=== PATIENT | female | born 1945 | race Caucasian/White ===

== ENCOUNTER → 2017-08-20 16:13 | Outpatient (CLI) | payer MEDICARE, OTHER, SELFPAY ==
[2017-08-13 11:35] VITALS: TEMP 36
--- NOTE | 2017-08-20 16:16 | DI.MRI.S_ITS ---
PROCEDURE: MR HEAD/BRAIN WO CON INDICATIONS: Frequent falls, Headaches. TECHNIQUE: Non-contrast axial T1 spin echo, axial T2 fast spin echo, sagittal and axial FLAIR, coronal T2 fast spin echo, axial gradient echo, axial diffusion and ADC through the brain. COMPARISON: None. FINDINGS: Image quality: Excellent. CSF spaces: Ventricles appear symmetric in size and shape. Basal cisterns are patent. No extra-axial fluid collections. Brain: No intracranial bleeds or mass effects. There is cerebral volume loss for age. There are periventricular and deep white matter chronic small vessel ischemic changes. Brainstem appears normal. Diffusion-weighted images show no acute ischemic insults. No chronic ischemic insults. Normal intravascular flow voids are present. Skull and face: Calvarial bone marrow is normal in signal. Orbits are normal. Sinuses: Sinuses and mastoids are clear. IMPRESSION: Normal for age, no sign of trauma or intracranial hemorrhage. There is only mild microvascular atherosclerotic change in the deep white matter of each hemisphere. No sign of mass or hydrocephalus. Dictated by: Jamin Harmon M.D. on 08/20/2017 at 17:09 Approved by: Jamin Harmon M.D. on 08/20/2017 at 17:10
== END ==
PROVIDERS: Family Provider Family Medicine; PCP Family Medicine; Visit Provider Family Medicine
DX: R51 Headache (principal); R29.6 Repeated falls
CPT/HCPCS: 70551

== ENCOUNTER → 2017-08-29 12:44 | Outpatient (CLI) | payer MEDICARE, OTHER, SELFPAY ==
--- NOTE | 2017-08-29 12:47 | DI.MRI.S_ITS ---
PROCEDURE: MR LUMBAR SPINE WO CON INDICATIONS: right lower extremity weakness TECHNIQUE: Noncontrast sagittal T1 spin echo and T2 fast echo, sagittal STIR, axial T1 and T2 fast spin echo through the lumbar spine. In cases with scoliosis, additional coronal T2 fast spin echo may be performed. COMPARISON: [facility], , L-SPINE WITHOUT CONTRAST, 11/18/2006, 12:48. FINDINGS: Image quality: Excellent. Alignment and Curvature: There is grade 1 retrolisthesis of L2 on L3 and L3 on L4. Bone Marrow: Degenerative endplate signal changes in lumbar spine noted. No acute vertebral body compression fractures. Spinal Cord: Conus medullaris terminates at the L1-L2 level. Visualized cord demonstrates normal signal and size. Paraspinous Soft Tissues: No paravertebral masses. L1-L2: Normal appearance. L2-L3: Severe loss of disc height and disc desiccation. There is diffuse posterior disc bulge and disc osteophyte complex. Moderate bilateral facet arthropathy and hypertrophy are ligamentum flavum. The central canal is severely narrowed. Severe left and moderate right foraminal stenosis. Compared to the last exam on 11/18/2006, there is significant worsening of central canal from a stenosis. L3-L4: Moderate to severe loss of disc height and disc desiccation. There is diffuse posterior disc bulge and disc osteophyte complex. Moderate bilateral facet arthropathy and severe hypertrophy are ligamentum flavum. The central canal is severely narrowed. Severe bilateral foraminal stenosis. Compared to the last exam on 11/18/2006, there is significant worsening of central canal from a stenosis. L4-L5: Mild to moderate loss of disc height and disc desiccation. There is diffuse posterior disc bulge and disc osteophyte complex. Severe right and moderate left facet arthropathy and moderate hypertrophy are ligamentum flavum. The central canal is [id number] narrowed. Severe right and moderate to severe left foraminal stenosis. Compared to the last exam on 11/18/2006, there is significant worsening of central canal from a stenosis. L5-S1: Moderate loss of disc height and disc desiccation. There is diffuse posterior disc bulge and disc osteophyte complex. Moderate facet arthropathy and moderate hypertrophy. The central canal is mildly narrowed. Severe bilateral foraminal stenosis. Compared to the last exam on 11/18/2006, there is significant worsening of central canal from a stenosis. IMPRESSION: 1. Multilevel degenerative disc disease and facet arthropathy as described. 2. Multilevel severe central canal stenosis as described. 3. Multilevel severe foraminal stenosis as described. Dictated by: Valeria Napier M.D. on 08/29/2017 at 17:23 Transcribed by: PADMINI on 08/29/2017 at 17:30 Approved by: Valeria Napier M.D. on 08/30/2017 at 9:45
== END ==
PROVIDERS: Family Provider Family Medicine; PCP Family Medicine; Visit Provider Family Medicine
DX: M51.36 Other intervertebral disc degeneration, lumbar region (principal); M47.816 Spondylosis without myelopathy or radiculopathy, lumbar region; M48.061 Spinal stenosis, lumbar region without neurogenic claudication; M99.73 Connective tissue and disc stenosis of intervertebral foramina of lumbar region
CPT/HCPCS: 72148

== ENCOUNTER → 2017-10-15 09:55 | Outpatient (CLI) | payer MEDICARE, OTHER, SELFPAY ==
--- NOTE | 2017-10-15 09:58 | DI.RAD.S_ITS ---
PROCEDURE: XR LUMBAR SPINE MIN 4V INDICATIONS: Lumbar Stenosis with Radiculopathy TECHNIQUE: 6 views of the lumbar spine were acquired. COMPARISON: [facility], , L-SPINE 2-3 VIEWS, 10/14/2006, 11:38. FINDINGS: Bones: 5 nonrib-bearing vertebrae are present. There is moderate rotatory dextroscoliosis. There is grade 1 retrolisthesis of L2 on L3 and L3 on L4. No vertebral body compression fractures. No suspicious bony lesions. Multilevel degenerative disc disease is present, severe at L2-L3, L3-L4 and L5-S1. There is severe facet arthropathy at L3-L4, L4-L5 and L5-S1. 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 Soft tissues: Overlying bowel gas pattern is normal. There are aortic calcifications consistent with atherosclerosis. Oblique images: No pars defects. IMPRESSION: 1. Severe degenerative disc disease at L2-L3, L3-L4 and L5-S1. 2. Multilevel facet arthropathy, severe at L3-L4, L4-L5 and L5-S1. 3. Baastrup's disease. 4. No pars defects. Dictated by: Valeria Napier M.D. on 10/15/2017 at 14:12 Approved by: Valeria Napier M.D. on 10/15/2017 at 14:18
== END ==
PROVIDERS: Family Provider Family Medicine; PCP Family Medicine; Visit Provider Physical Medicine & Rehabilitation
DX: M48.061 Spinal stenosis, lumbar region without neurogenic claudication (principal); M54.16 Radiculopathy, lumbar region; M51.36 Other intervertebral disc degeneration, lumbar region; M47.26 Other spondylosis with radiculopathy, lumbar region; M47.27 Other spondylosis with radiculopathy, lumbosacral region; M48.26 Kissing spine, lumbar region
CPT/HCPCS: 72110

== ENCOUNTER 2017-10-16 08:14 | Outpatient (CLI) | payer MEDICARE, OTHER, SELFPAY ==
[2017-10-16] VITALS (8 sets, daily range): BP systolic 140–167; BP diastolic 62–82; PULSE 55–67; RESP 16–19; TEMP 36.2; O2SAT 99–100
--- NOTE | 2017-10-16 08:16 | DI.RAD.S_ITS ---
PROCEDURE: PAIN L INTERLAMINAR/CAUDAL INJ INDICATIONS: LUMBOSACRAL RADICULOPATHY FINDINGS: Fluoroscopic spot filming was performed to verify placement of spinal needles at the midline L3-L4 epidural level, as labeled on the films. Appropriate location(s) of the needle tip(s) was confirmed by injection of iodinated contrast. IMPRESSION: Successful epidural needle tip localization through the right paramedian interlaminar notch L3-L4. Dictated by: Jamin Harmon M.D. on 10/16/2017 at 12:17 Approved by: Jamin Harmon M.D. on 10/16/2017 at 12:18
[2017-10-16] MEDS: MIDAZOLAM 5 MG/5 ML VIAL IV (09:09)
[2017-10-16] MEDS: BUPIVACAINE 0.25% (PF) 30 ML VIAL INJ (09:09)
[2017-10-16] MEDS: methylPREDNISolone acetate 80 MG/ML VIAL INJ (09:09)
[2017-10-16] MEDS: IOPAMIDOL 15 ML VIAL 3 ML INJ (09:09)
[2017-10-16] MEDS: DEXAMETHASONE 10 MG/ML VIAL 20 MG INJ (09:09)
--- NOTE | 2017-10-16 09:34 | P.PCN_ITS ---
Procedures Date/Time Date of procedure: 10/16/17 Time of procedure: 09:32 General Procedure description: POST OP DIAGNOSIS 1. HNP WITH RADICULAR FEATURES, 2. MULTILEVEL CENTRAL STENOSIS, PROCEDURES 1. FLUORSCOPICALLY GUIDED CONTRAST CONTROLLED INTERLAMINAR EPIDURAL STEROID INJECTION - L3/4 PHYSICIAN: Wilner Tee, INDICATIONS Heather is referred by Dr.Les Murray for treatment of Bilateral Foraminal Stenosis L>R LE symptoms. FINDINGS Multilevel Central Spinal Stenosis with Nerve Root Compression DESCRIPTION OF PROCEDURE Fluoroscopically guided, contrast-controlled L3/4 translaminar epidural steroid injection. Following denial of allergy and review of potential side effects and complications, including, but not necessarily limited to, infection, allergic reaction, local tissue breakdown, temporary as well as permanent nerve injury, paralysis, stroke and possible , the patient indicated that the patient understood and agreed to proceed. An informed consent document was signed by the patient, witnessed by a nurse, and placed in the patient's chart. Additionally, other treatment options including modalities, medications, and physical therapy were reviewed with the patient. Per the patient request, IV conscious sedation was administered via 3mg of Versed to patient comfort. The patient's vital signs were monitored throughout the procedure by both the nurse and the physician without significant fluctuation. The patient remained conversant throughout the procedure. In the prone position, following sterile prep and drape of the lumbar region, the L3/4 translaminar space was identified fluoroscopically. The skin was anesthetized via a 25-gauge, 1.5-inch needle with 1% lidocaine solution. At this point, a 22-gauge short bevel spinal needle was atraumatically introduced and advanced under fluoroscopic guidance into the region of the L3/4 translaminar space. Depth was confirmed on lateral view. Radiological data, including multiple fluoroscopic views of the lumbar spine, reveal a spinal needle at the L3/4 translaminar space. Lateral views then show placement of the needle in the epidural space. Subsequent views show contrast material flowing superiorly and inferiorly in the epidural space. No vascular or intrathecal uptake is observed. At this point, using loss of resistance technique with saline and air, the epidural space was entered. This was confirmed following negative aspiration with injection of approximately 1.5 cc of Isovue 200, showing excellent epidural flow without vascular or intrathecal uptake. At this point, 1 cc of 1 % lidocaine solution combined with 3 cc or 20 mg of dexamethasone and 80mg Depo medrol was injected without incident. The patient was then transferred to the recovery area where they were observed for an appropriate period of time after the injection. The patient reported a VAS score of 6 prior to the procedure and a post-procedure VAS of 0. Total Fluoroscopy Time: 11.8 seconds Total Conscious Sedation Time: 24min POST OP INSTRUCTIONS The patient was provided a Pain Log to continue to record their response to the target-specific procedure prior to follow-up visit with their referring physician. Additionally, specific post-injection care instructions and a contact number to our office were provided if concerns arise regarding possible complications associated with the procedure are suspected. Wilner Tee DO
--- NOTE | 2017-11-21 13:02 | PC.NURSE ---
incorrectly documented in pt's chart in physical therapy documention on 10/16/17. Documentation transferred to correct chart RAD.
== END 2017-10-16 09:58 | disposition home or self-care (01) ==
LOC: RAD 08:16
PROVIDERS: PCP Family Medicine; Visit Provider Physical Medicine & Rehabilitation
DX: M48.061 Spinal stenosis, lumbar region without neurogenic claudication (principal); M54.17 Radiculopathy, lumbosacral region; M41.20 Other idiopathic scoliosis, site unspecified; M99.83 Other biomechanical lesions of lumbar region
CPT/HCPCS: 62323; 99152; J1040; J1100; J2250

== ENCOUNTER → 2017-11-13 12:09 | Outpatient (CLI) | payer MEDICARE, OTHER, SELFPAY ==
[2017-11-13] VITALS (7 sets, daily range): BP systolic 134–169; BP diastolic 57–130; PULSE 52–62; RESP 16–23; TEMP 36.1; O2SAT 98–100
--- NOTE | 2017-11-13 12:12 | DI.RAD.S_ITS ---
PROCEDURE: PAIN L/SI FACET INJ/BLK 1STL INDICATIONS: Lumbosacral spondylosis FINDINGS: Fluoroscopic spot filming was performed to verify placement of spinal needles at the left L4-5 in the left L5-S1 level(s), as labeled on the films. Appropriate location(s) of the needle tip(s) was confirmed by injection of iodinated contrast. IMPRESSION: Successful left ill for 5 and L5-S1 localization for anticipated facet joint injection. Dictated by: Jamin Harmon M.D. on 11/13/2017 at 16:16 Approved by: Jamin Harmon M.D. on 11/13/2017 at 16:16
--- NOTE | 2017-11-13 13:23 | P.PCN_ITS ---
Procedures Date/Time Date of procedure: 11/13/17 Time of procedure: 13:19 General Procedure description: PREOP DIAGNOSIS 1. FACET ARTHROPATHY, 2. AXIAL LBP, 3. MULTILEVEL DDD, POST OP DIAGNOSIS 1. FACET ARTHROPATHY, 2. AXIAL LBP, 3. MULTILEVEL DDD, PROCEDURES 1. FLUORSCOPICALLY GUIDED CONTRAST CONTROLLED FACET JOINT INJECTIONS LEFT L4/5 , L5/S1 SURGEON: Wilner Tee DO INDICATIONS is referred by for treatment of Axial LBP FINDINGS Multilevel Facet Arthropathy with Clinically significant axial LBP DESCRIPTION OF PROCEDURE Fluoroscopically guided, contrast-controlled left L4/5, L5/S1 facet joint injections. Following denial of allergy and review of potential side effects and complications, including, but not necessarily limited to, infection, allergic reaction, local tissue breakdown, stroke, temporary or permanent nerve injury, paralysis, and possible , the patient indicated that the patient understood and agreed to proceed. An informed consent document was signed by the patient, witnessed by a nurse, and placed in the patient's chart. Additionally, other treatment options including medications, modalities, and physical therapy were reviewed with the patient. After review of previous anaesthesic history and IV conscious sedation the patient was deemed safe to proceed with todays procedure with IV conscious sedation as ASA class II designation. Safety time-out was performed to confirm patient ID, procedure to be performed and site of procedure. IV sedation was accomplished with a combination of 2mg was administered by the RN after DO order , titrated to patient comfort during the course of the procedure while the patient remained responsive to all verbal commands In the prone position, following sterile prep and drape of the lumbar region, the posterior aspect of the left L4/5, L5/S1 facet joints were identified fluoroscopically. The skin was anesthetized via a 25-gauge 1.5-inch needle with 1% lidocaine solution into the corresponding facet joints. At this point, a 22-gauge 3.5-inch spinal needle was atraumatically introduced and advanced under fluoroscopic guidance into the corresponding facet joints. Following negative aspiration, injections of approximately 0.2-cc of Isovue 200 confirmed interarticular placement without vascular uptake. Radiological data, including multiple fluoroscopic views of the lumbosacral spine, reveal a spinal needle at the left L4/5, L5/S1 facet joints. Subsequent views show flow of contrast material both superiorly and inferiorly within the joint space without vascular or intrathecal uptake. At this point, a total of 0.5 cc including a mixture of 0.25cc Marcaine and 0.25cc betamethasone was injected without complication into each of the corresponding facet joints. The procedure tolerated the procedure well without signs or symptoms of complications prior to transfer to the recovery area continued monitoring without incident. The patient was then transferred to the recovery area where they were observed for an appropriate period of time after the injection. The patient reported a VAS score of 7 prior to the procedure and a post-procedure VAS of 0. Total Fluoroscopy Time: 12.7 seconds Total Conscious Sedation Time: 24min POST OP INSTRUCTIONS The patient was provided a Pain Log to continue to record their response to the target-specific procedure prior to follow-up visit with their referring physician. Additionally, specific post-injection care instructions and a contact number to our office were provided if concerns arise regarding possible complications associated with the procedure are suspected. Wilner Tee DO Complications: none
[2017-11-13] MEDS: BETAMETHASONE 30 MG/5 ML MDV 12 MG INJ (13:34)
[2017-11-13] MEDS: MIDAZOLAM 5 MG/5 ML VIAL IV (13:34)
[2017-11-13] MEDS: BUPIVACAINE 0.25% (PF) VIAL 2 ML INJ (13:34)
[2017-11-13] MEDS: IOPAMIDOL 15 ML VIAL 3 ML INJ (13:34)
== END ==
PROVIDERS: PCP Family Medicine; Visit Provider Physical Medicine & Rehabilitation
DX: M47.816 Spondylosis without myelopathy or radiculopathy, lumbar region (principal); M47.817 Spondylosis without myelopathy or radiculopathy, lumbosacral region; M51.36 Other intervertebral disc degeneration, lumbar region; M51.37 Other intervertebral disc degeneration, lumbosacral region; M54.5 Low back pain; M41.20 Other idiopathic scoliosis, site unspecified
CPT/HCPCS: 64493; 64494; 99152; J0702; J2250

== ENCOUNTER 2017-12-03 08:15 | Outpatient (RCR) | payer MEDICARE, OTHER, SELFPAY ==
[2017-10-16 09:09] VITALS: BP 166/74; PULSE 60; RESP 18; O2SAT 100
[2017-10-16 09:15] VITALS: BP 166/68; PULSE 56; RESP 19; O2SAT 100
[2017-10-16 09:21] VITALS: BP 166/62; PULSE 56; RESP 19; O2SAT 100
[2017-10-16 09:26] VITALS: BP 167/63; PULSE 58; RESP 17; O2SAT 99
--- NOTE | 2017-10-25 12:00 | PT.OTN ---
Current Diagnoses Other idiopathic scoliosis, site unspecified (11/01/17) Radiculopathy, lumbosacral region (11/01/17) Other biomechanical lesions of lumbar region (11/01/17) Physical Therapy Treatment Note PT-OP-A Visit Information Start: 10/30/17 10:02 Freq: Status: Active Protocol: Document 11/01/17 10:30 AMB (Rec: 11/01/17 10:39 AMB [id number]) Out-Patient Physical Therapy Visit Information Visit Information Visit Type Treatment Note Visit Start Time 10:30 Visit Stop Time 11:15 Total Visit Minutes 45 Visit Number 2 Evaluation Information Evaluation Date 10/30/17 PT-OP-B Current Condition Start: 10/30/17 10:02 Freq: Status: Active Protocol: Document 10/30/17 11:15 AMB (Rec: 10/30/17 11:31 AMB [id number]) Current Condition History of Current Condition Onset Date chronic Current Complaints L>R low back pain that can go into the hips, never past the knee History of Current Condition R sided low back pain is much improved since injection by Dr Francie Tee 2 weeks ago. Standing statically is still a painful. 5-8/10 pain before shot. 1-3/10 pain now, but a 1 mile walk did increase pain. 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 Fell 3x in July, fell down 2 stairs, listing to the R, falling to the right. No falls since July. Denies specific dizziness/ lightheadedness/spinning but feels off balance. Does report left ear pressure which is worst in the morning. 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 Lumbar and brain MRI. 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 Prior Functional Status Baseline Function- ADL's Independent Baseline Function- Mobility Independent Current Functional Impairments (Reported) Functional Limitations- ADL's Difficulty with yardwork, difficulty walking more than 15 minutes at a time, difficulty standing. PT-OP-C Subjective Start: 10/30/17 10:02 Freq: Status: Active Protocol: Document 11/01/17 10:30 AMB (Rec: 11/01/17 10:39 AMB [id number]) OP-PT Subjective Patient Comments Patient Comments L sided pain is pain is increasing 3/10 pain. PT-OP-D Balance Start: 10/30/17 10:02 Freq: Status: Active Protocol: Document 10/30/17 11:15 AMB (Rec: 10/31/17 07:58 AMB [email or web address]) Balance Tests Romberg Romberg positive Single Limb Standing Single Limb- Right unable Single Limb- Left unable Semi-Tandem Standing Semi-Tandem Standing Balance with head turns, LOB PT-OP-E Functional Tests Start: 10/30/17 13:02 Freq: Status: Active Protocol: Document 10/30/17 11:15 AMB (Rec: 10/30/17 13:06 AMB [email or web address]) Functional Tests Dynamic Gait Index (DGI) Score 11 DGI Impairment Rating 40 to <60% Impaired (Score 10- 14) PT-OP-F Manual Assessment Start: 10/30/17 10:02 Freq: Status: Active Protocol: Document 10/30/17 11:15 AMB (Rec: 10/30/17 16:18 AMB [email or web address]) Manual Assessments Joint Mobility Assessment Joint Mobility Assessment Stiff with PAs throughout lumbosacral spine, tenderness at paraspinals on the left. PT-OP-G Mobility & Gait Start: 10/30/17 10:02 Freq: Status: Active Protocol: Document 10/30/17 11:15 AMB (Rec: 10/30/17 16:18 AMB [email or web address]) OP Gait Assessment Comments Gait Comments Pt ambulates without assistive device, without trunk rotation. Decreased hip flexion leads to circumduction to raise leg over hurdles. Increased feeling of instability with walking faster. PT-OP-J Posture/Palpation/Skin Start: 10/30/17 10:02 Freq: Status: Active Protocol: Document 10/30/17 11:15 AMB (Rec: 10/30/17 16:18 AMB [email or web address]) Posture Evaluation Comments Posture Comments Moderate- severe thoracic kyphosis with excessive lumbar lordosis. PT-OP-K Range of Motion Start: 10/30/17 10:02 Freq: Status: Active Protocol: Document 10/30/17 11:15 AMB (Rec: 10/30/17 13:29 AMB [email or web address]) Lumbar Spine Range of Motion Lumbar Spine Active Degrees Flexion 40 Extension 20 Lateral Flexion Left 10 Lateral Flexion Right 10 PT-OP-M Strength Start: 10/30/17 10:02 Freq: Status: Active Protocol: Document 10/30/17 11:15 AMB (Rec: 10/30/17 13:29 AMB [email or web address]) Hip Strength Hip Manual Muscle Testing Right Flexion (L2) 3 Fair Extension (S1) 4- Good- Abduction 4- Good- Left Flexion (L2) 3- Fair- Extension (S1) 4- Good- Abduction 4- Good- Knee Strength Knee Manual Muscle Testing Right Flexion (S2) 4 Good Extension (L3) 4- Good- Left Flexion (S2) 4 Good Extension (L3) 4- Good- PT-OP-Q Treatments Start: 10/30/17 10:02 Freq: Status: Active Protocol: Document 11/01/17 10:30 AMB (Rec: 11/04/17 07:04 AMB [email or web address]) Cardio Equipment Recumbent Elliptical (BiodDekko) Duration (Minutes) 6 Resistance 4 Therapeutic Exercises Supine Exercises 2 Supine Exercise Name SLR Reps/Minutes 10 1 Supine Exercise Name TrA stab Comments added march Sidelying Exercises 1 Sidelying Exercise Name hip abd SLR Reps/Minutes 10 bilat Standing Exercises 1 Standing Exercise Name squats Reps/Minutes 2x10 Comments vc form Neuro Re-Education Treatment Balance Activities 2 Details Ambulation with head turns Comments horizontal and vertical (veers to R with horizontal). 1 Details Stride stance head turns Comments in corner PT-OP-T Assessment and Plan Start: 10/30/17 10:02 Freq: Status: Active Protocol: Document 11/01/17 10:30 AMB (Rec: 11/01/17 13:02 AMB [email or web address]) Physical Therapy Assessment Assessment Summary Assessment Pt fatigues quickly in her hips. L sided back pain more of an issue than R. Veering R with head turns continues. Physical Therapy Plan Next Visit Focus/Plan Next Note Type Treatment Note Next Visit Plan Progress core stability, gait with head turns, try VOR training
--- NOTE | 2017-10-30 12:00 | PT.OPPOC ---
Current Diagnoses Other idiopathic scoliosis, site unspecified (10/30/17) Radiculopathy, lumbosacral region (10/30/17) Other biomechanical lesions of lumbar region (10/30/17) Other abnormalities of gait and mobility (10/30/17) History of falling (10/30/17) Provider Visit Care Team Role Provider Type Gume Murray MD Primary Care Provider Physician Specialty: Family Practice Address: [address] [place] [address], [id number] Email: [email or web address] Wilner Tee DO Attending Provider Physician Specialty: Physiatry Pain Management Address: [address] [place] [address], [id number] Email: Plan Of Care PT-OP-T Assessment and Plan Start: 10/30/17 10:02 Freq: Status: Active Protocol: Document 10/30/17 11:15 AMB (Rec: 10/31/17 07:30 AMB [email or web address]) Physical Therapy Assessment Rehab Potential Rehabilitation Potential Good Evaluation Complexity Number of Personal Factors/Comorbidities 1-2 Number of Body Systems Impaired 4 or More Clinical Presentation at Evaluation Evolving Impairments Impairments Gait Pain Posture Strength Vestibular Goals Four Impairment Strength Short Term Goal (STG) The patient will improve her core and hip strength so that she can perform a straight leg raise with good strength without an increase in back pain. STG Duration 4 weeks Tools And Parts Attendant Goal (LTG) The patient will be able to step up on a curb without circumducting her hip. LTG Duration 8 weeks Three Impairment Balance Short Term Goal (STG) The patient will stand with modified tandem stance with head turns without loss of balance. STG Duration 4 weeks Two Impairment Activity Tolerance Short Term Goal (STG) The patient will walk for 1 mile (with breaks) without an increase in low back pain. STG Duration 4 weeks Jail Goal (LTG) The patient will perform a partial squat to unload her environmental lead without excessive flexion of the spine without an increase in pain. LTG Duration 8 weeks One Impairment Gait Tools And Parts Attendant Goal (LTG) The patient will improve her dynamic gait index to 18/24 to show decreased risk of falls. LTG Duration 8 weeks Assessment Summary Assessment The patient presents to physical therapy with history of chronic back pain, scoliosis, central canal stenosis. She recently had an injection on the right that has dramatically improved her pain, but she continues to get pain with walking, and avoids yard work. She also has a history of falls, and continues to veer to the right with gait, worse with eyes closed and head turn activities. 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 She will benefit from physical therapy for instruction in body mechanics, improved core and hip strength, pain management techniques, and further instruction in gait and balance. Physical Therapy Plan Frequency and Duration Frequency of Treatment 2x/Week Duration of Treatment 8 weeks Plan of Care Start Date 10/30/17 Plan of Care End Date 12/25/17 Therapeutic Interventions Therapeutic Interventions Aquatic Therapy Balance Training Gait Training Home Exercise Program Manual Therapy Neuromuscular Re-education Self-Care/Home Management Therapeutic Activities Therapeutic Exercises Vestibular Rehabilitation Modalities Cold Pack/Ice Massage Electric Stimulation Hot Packs Traction- Mechanical Other Therapeutic Interventions Jac treatment per physician order Next Visit Focus/Plan Next Note Type Treatment Note Plan of Care Dates Plan of Care Start Date 10/30/17 Plan of Care End Date 12/25/17 Please Sign and Return: I have reviewed this Plan of Care and certify that the skilled therapy services above are required to meet the patient?s needs. Physician Signature Date Printed Name and Credentials Clinical Instructor Signature Printed Name and Credentials
--- NOTE | 2017-10-31 08:04 | PT.OIE ---
Current Diagnoses Other idiopathic scoliosis, site unspecified (10/30/17) Radiculopathy, lumbosacral region (10/30/17) Other biomechanical lesions of lumbar region (10/30/17) Other abnormalities of gait and mobility (10/30/17) History of falling (10/30/17) Past Surgical History (Last Reviewed 09/23/17 @ 11:50 by Wilner Tee DO) History of cataract removal with insertion of prosthetic lens Status post appendectomy Status post dilation and curettage Status post tonsillectomy and adenoidectomy Status post tubal ligation Provider Visit Care Team Role Provider Type Gume Murray MD Primary Care Provider Physician Specialty: Family Practice Address: [address] [place] [address], [id number] Email: [email or web address] Wilner Tee DO Attending Provider Physician Specialty: Physiatry Pain Management Address: [address] [place] [id number] Email: Physical Therapy Initial Evaluation PT-OP-A Visit Information Start: 10/30/17 10:02 Freq: Status: Active Protocol: Document 10/30/17 11:15 AMB (Rec: 10/30/17 13:08 AMB [email or web address]) Out-Patient Physical Therapy Visit Information Visit Information Visit Type Initial Evaluation Visit Start Time 11:15 Visit Stop Time 12:15 Total Visit Minutes 60 Visit Number 1 Evaluation Information Evaluation Date 10/30/17 PT-OP-B Current Condition Start: 10/30/17 10:02 Freq: Status: Active Protocol: Document 10/30/17 11:15 AMB (Rec: 10/30/17 11:31 AMB [id number]) Current Condition History of Current Condition Onset Date chronic Current Complaints L>R low back pain that can go into the hips, never past the knee History of Current Condition R sided low back pain is much improved since injection by Dr Francie Tee 2 weeks ago. Standing statically is still a painful. 5-8/10 pain before shot. 1-3/10 pain now, but a 1 mile walk did increase pain. 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 Fell 3x in July, fell down 2 stairs, listing to the R, falling to the right. No falls since July. Denies specific dizziness/ lightheadedness/spinning but feels off balance. Does report left ear pressure which is worst in the morning. 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 Lumbar and brain MRI. 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 Prior Functional Status Baseline Function- ADL's Independent Baseline Function- Mobility Independent Current Functional Impairments (Reported) Functional Limitations- ADL's Difficulty with yardwork, difficulty walking more than 15 minutes at a time, difficulty standing. PT-OP-C Subjective Start: 10/30/17 10:02 Freq: Status: Active Protocol: Document 10/30/17 11:15 AMB (Rec: 10/30/17 13:02 AMB [email or web address]) OP-PT Subjective Patient Comments Patient Comments The patient reports her pain levels has been improving since her injection 2 weeks ago. Walking and yardwork continue to increase her pain. Patient Questionnaires Oswestry Low Back Index Oswestry Score 12 Oswestry Impairment 1 to 19% Impaired (Score 1-19) OP-PT Pain Assessment Location Back Pain Location Details low back L>R Intensity 2 Scale Used Numeric (1 - 10) PT-OP-D Balance Start: 10/30/17 10:02 Freq: Status: Active Protocol: Document 10/30/17 11:15 AMB (Rec: 10/31/17 07:58 AMB [email or web address]) Balance Tests Romberg Romberg positive Single Limb Standing Single Limb- Right unable Single Limb- Left unable Semi-Tandem Standing Semi-Tandem Standing Balance with head turns, LOB PT-OP-E Functional Tests Start: 10/30/17 13:02 Freq: Status: Active Protocol: Document 10/30/17 11:15 AMB (Rec: 10/30/17 13:06 AMB [email or web address]) Functional Tests Dynamic Gait Index (DGI) Score 11 DGI Impairment Rating 40 to <60% Impaired (Score 10- 14) PT-OP-F Manual Assessment Start: 10/30/17 10:02 Freq: Status: Active Protocol: Document 10/30/17 11:15 AMB (Rec: 10/30/17 16:18 AMB [email or web address]) Manual Assessments Joint Mobility Assessment Joint Mobility Assessment Stiff with PAs throughout lumbosacral spine, tenderness at paraspinals on the left. PT-OP-G Mobility & Gait Start: 10/30/17 10:02 Freq: Status: Active Protocol: Document 10/30/17 11:15 AMB (Rec: 10/30/17 16:18 AMB [email or web address]) OP Gait Assessment Comments Gait Comments Pt ambulates without assistive device, without trunk rotation. Decreased hip flexion leads to circumduction to raise leg over hurdles. Increased feeling of instability with walking faster. PT-OP-J Posture/Palpation/Skin Start: 10/30/17 10:02 Freq: Status: Active Protocol: Document 10/30/17 11:15 AMB (Rec: 10/30/17 16:18 AMB [email or web address]) Posture Evaluation Comments Posture Comments Moderate- severe thoracic kyphosis with excessive lumbar lordosis. PT-OP-K Range of Motion Start: 10/30/17 10:02 Freq: Status: Active Protocol: Document 10/30/17 11:15 AMB (Rec: 10/30/17 13:29 AMB [email or web address]) Lumbar Spine Range of Motion Lumbar Spine Active Degrees Flexion 40 Extension 20 Lateral Flexion Left 10 Lateral Flexion Right 10 PT-OP-M Strength Start: 10/30/17 10:02 Freq: Status: Active Protocol: Document 10/30/17 11:15 AMB (Rec: 10/30/17 13:29 AMB [email or web address]) Hip Strength Hip Manual Muscle Testing Right Flexion (L2) 3 Fair Extension (S1) 4- Good- Abduction 4- Good- Left Flexion (L2) 3- Fair- Extension (S1) 4- Good- Abduction 4- Good- Knee Strength Knee Manual Muscle Testing Right Flexion (S2) 4 Good Extension (L3) 4- Good- Left Flexion (S2) 4 Good Extension (L3) 4- Good- PT-OP-Q Treatments Start: 10/30/17 10:02 Freq: Status: Active Protocol: Document 10/30/17 11:15 AMB (Rec: 10/30/17 16:18 AMB [email or web address]) Therapeutic Exercises Supine Exercises 1 Supine Exercise Name TrA stab Comments added june Neuro Re-Education Treatment Balance Activities 1 Details Stride stance head turns Comments in corner PT-OP-T Assessment and Plan Start: 10/30/17 10:02 Freq: Status: Active Protocol: Document 10/30/17 11:15 AMB (Rec: 10/31/17 07:30 AMB [email or web address]) Physical Therapy Assessment Rehab Potential Rehabilitation Potential Good Evaluation Complexity Number of Personal Factors/Comorbidities 1-2 Number of Body Systems Impaired 4 or More Clinical Presentation at Evaluation Evolving Impairments Impairments Gait Pain Posture Strength Vestibular Goals Four Impairment Strength Short Term Goal (STG) The patient will improve her core and hip strength so that she can perform a straight leg raise with good strength without an increase in back pain. STG Duration 4 weeks Insurance Investigator Goal (LTG) The patient will be able to step up on a curb without circumducting her hip. LTG Duration 8 weeks Three Impairment Balance Short Term Goal (STG) The patient will stand with modified tandem stance with head turns without loss of balance. STG Duration 4 weeks Two Impairment Activity Tolerance Short Term Goal (STG) The patient will walk for 1 mile (with breaks) without an increase in low back pain. 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 LTG Duration 8 weeks One Impairment Gait Insurance Investigator Goal (LTG) The patient will improve her dynamic gait index to 18/24 to show decreased risk of falls. LTG Duration 8 weeks Assessment Summary Assessment The patient presents to physical therapy with history of chronic back pain, scoliosis, central canal stenosis. She recently had an injection on the right that has dramatically improved her pain, but she continues to get pain with walking, and avoids yard work. She also has a history of falls, and continues to veer to the right with gait, worse with eyes closed and head turn activities. 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 She will benefit from physical therapy for instruction in body mechanics, improved core and hip strength, pain management techniques, and further instruction in gait and balance. Physical Therapy Plan Frequency and Duration Frequency of Treatment 2x/Week Duration of Treatment 8 weeks Plan of Care Start Date 10/30/17 Plan of Care End Date 12/25/17 Therapeutic Interventions Therapeutic Interventions Aquatic Therapy Balance Training Gait Training Home Exercise Program Manual Therapy Neuromuscular Re-education Self-Care/Home Management Therapeutic Activities Therapeutic Exercises Vestibular Rehabilitation Modalities Cold Pack/Ice Massage Electric Stimulation Hot Packs Traction- Mechanical Other Therapeutic Interventions Jac treatment per physician order Next Visit Focus/Plan Next Note Type Treatment Note
--- NOTE | 2017-11-04 12:46 | PT.OTN ---
Current Diagnoses Other idiopathic scoliosis, site unspecified (11/04/17) Radiculopathy, lumbosacral region (11/04/17) Other biomechanical lesions of lumbar region (11/04/17) Physical Therapy Treatment Note PT-OP-A Visit Information Start: 10/30/17 10:02 Freq: Status: Active Protocol: Document 11/04/17 09:45 AMB (Rec: 11/04/17 09:47 AMB [email or web address]) Out-Patient Physical Therapy Visit Information Visit Information Visit Type Treatment Note Visit Start Time 09:45 Visit Stop Time 10:30 Total Visit Minutes 45 Visit Number 3 Evaluation Information Evaluation Date 10/30/17 PT-OP-B Current Condition Start: 10/30/17 10:02 Freq: Status: Active Protocol: Document 10/30/17 11:15 AMB (Rec: 10/30/17 11:31 AMB [id number]) Current Condition History of Current Condition Onset Date chronic Current Complaints L>R low back pain that can go into the hips, never past the knee History of Current Condition R sided low back pain is much improved since injection by Dr Francie Tee 2 weeks ago. Standing statically is still a painful. 5-8/10 pain before shot. 1-3/10 pain now, but a 1 mile walk did increase pain. 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 Fell 3x in July, fell down 2 stairs, listing to the R, falling to the right. No falls since July. Denies specific dizziness/ lightheadedness/spinning but feels off balance. Does report left ear pressure which is worst in the morning. 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 Lumbar and brain MRI. 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 Prior Functional Status Baseline Function- ADL's Independent Baseline Function- Mobility Independent Current Functional Impairments (Reported) Functional Limitations- ADL's Difficulty with yardwork, difficulty walking more than 15 minutes at a time, difficulty standing. PT-OP-C Subjective Start: 10/30/17 10:02 Freq: Status: Active Protocol: Document 11/04/17 09:45 AMB (Rec: 11/04/17 09:54 AMB [id number]) OP-PT Subjective Patient Comments Patient Comments 2/10 L pain. Hosted a libertarian yesterday and that increased L sided pain significantly. PT-OP-D Balance Start: 10/30/17 10:02 Freq: Status: Active Protocol: Document 10/30/17 11:15 AMB (Rec: 10/31/17 07:58 AMB [email or web address]) Balance Tests Romberg Romberg positive Single Limb Standing Single Limb- Right unable Single Limb- Left unable Semi-Tandem Standing Semi-Tandem Standing Balance with head turns, LOB PT-OP-E Functional Tests Start: 10/30/17 13:02 Freq: Status: Active Protocol: Document 10/30/17 11:15 AMB (Rec: 10/30/17 13:06 AMB [email or web address]) Functional Tests Dynamic Gait Index (DGI) Score 11 DGI Impairment Rating 40 to <60% Impaired (Score 10- 14) PT-OP-F Manual Assessment Start: 10/30/17 10:02 Freq: Status: Active Protocol: Document 10/30/17 11:15 AMB (Rec: 10/30/17 16:18 AMB [email or web address]) Manual Assessments Joint Mobility Assessment Joint Mobility Assessment Stiff with PAs throughout lumbosacral spine, tenderness at paraspinals on the left. PT-OP-G Mobility & Gait Start: 10/30/17 10:02 Freq: Status: Active Protocol: Document 10/30/17 11:15 AMB (Rec: 10/30/17 16:18 AMB [email or web address]) OP Gait Assessment Comments Gait Comments Pt ambulates without assistive device, without trunk rotation. Decreased hip flexion leads to circumduction to raise leg over hurdles. Increased feeling of instability with walking faster. PT-OP-J Posture/Palpation/Skin Start: 10/30/17 10:02 Freq: Status: Active Protocol: Document 10/30/17 11:15 AMB (Rec: 10/30/17 16:18 AMB [email or web address]) Posture Evaluation Comments Posture Comments Moderate- severe thoracic kyphosis with excessive lumbar lordosis. PT-OP-K Range of Motion Start: 10/30/17 10:02 Freq: Status: Active Protocol: Document 10/30/17 11:15 AMB (Rec: 10/30/17 13:29 AMB [email or web address]) Lumbar Spine Range of Motion Lumbar Spine Active Degrees Flexion 40 Extension 20 Lateral Flexion Left 10 Lateral Flexion Right 10 PT-OP-M Strength Start: 10/30/17 10:02 Freq: Status: Active Protocol: Document 10/30/17 11:15 AMB (Rec: 10/30/17 13:29 AMB [email or web address]) Hip Strength Hip Manual Muscle Testing Right Flexion (L2) 3 Fair Extension (S1) 4- Good- Abduction 4- Good- Left Flexion (L2) 3- Fair- Extension (S1) 4- Good- Abduction 4- Good- Knee Strength Knee Manual Muscle Testing Right Flexion (S2) 4 Good Extension (L3) 4- Good- Left Flexion (S2) 4 Good Extension (L3) 4- Good- PT-OP-Q Treatments Start: 10/30/17 10:02 Freq: Status: Active Protocol: Document 11/04/17 09:45 AMB (Rec: 11/04/17 12:43 AMB [email or web address]) Cardio Equipment Recumbent Elliptical ([employer]) Duration (Minutes) 6 Resistance 5 Therapeutic Exercises Supine Exercises 5 Supine Exercise Name hip flexor/quad stretch Side left Reps/Minutes 30x2 4 Supine Exercise Name piriformis stretch Reps/Minutes 30x2 3 Supine Exercise Name hamstring stretch Reps/Minutes 30x2 2 Supine Exercise Name SLR Reps/Minutes 10 Standing Exercises 1 Standing Exercise Name squats Reps/Minutes 2x10 Comments vc form Neuro Re-Education Treatment Balance Activities 3 Details stride stance bow Comments with Head Turn 1 Details Stride stance head turns Comments in corner Vestibular Rehabilitation X1 Viewing Details thumb, slow Comments in stride stance PT-OP-T Assessment and Plan Start: 10/30/17 10:02 Freq: Status: Active Protocol: Document 11/04/17 12:43 AMB (Rec: 11/04/17 12:45 AMB [email or web address]) Physical Therapy Assessment Assessment Summary Assessment Continue to progress core stability for L sided pain. Pt is not seeing PCP until February, so we will progress vestibular rehab as tolerated. Did not have pt do head turns with ambulation for now. Physical Therapy Plan Next Visit Focus/Plan Next Note Type Treatment Note Next Visit Plan Try foam/ eyes closed balance.
--- NOTE | 2017-11-12 08:26 | PT.OTN ---
Current Diagnoses Other idiopathic scoliosis, site unspecified (11/08/17) Radiculopathy, lumbosacral region (11/08/17) Other biomechanical lesions of lumbar region (11/08/17) Physical Therapy Treatment Note PT-OP-A Visit Information Start: 10/30/17 10:02 Freq: Status: Active Protocol: Document 11/08/17 10:30 AMB (Rec: 11/08/17 10:30 AMB [id number]) Out-Patient Physical Therapy Visit Information Visit Information Visit Type Treatment Note Visit Start Time 10:30 Visit Stop Time 11:15 Total Visit Minutes 45 Visit Number 4 Evaluation Information Evaluation Date 10/30/17 PT-OP-B Current Condition Start: 10/30/17 10:02 Freq: Status: Active Protocol: Document 10/30/17 11:15 AMB (Rec: 10/30/17 11:31 AMB [id number]) Current Condition History of Current Condition Onset Date chronic Current Complaints L>R low back pain that can go into the hips, never past the knee History of Current Condition R sided low back pain is much improved since injection by Dr Francie Tee 2 weeks ago. Standing statically is still a painful. 5-8/10 pain before shot. 1-3/10 pain now, but a 1 mile walk did increase pain. 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 Fell 3x in July, fell down 2 stairs, listing to the R, falling to the right. No falls since July. Denies specific dizziness/ lightheadedness/spinning but feels off balance. Does report left ear pressure which is worst in the morning. 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 Lumbar and brain MRI. 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 Prior Functional Status Baseline Function- ADL's Independent Baseline Function- Mobility Independent Current Functional Impairments (Reported) Functional Limitations- ADL's Difficulty with yardwork, difficulty walking more than 15 minutes at a time, difficulty standing. PT-OP-C Subjective Start: 10/30/17 10:02 Freq: Status: Active Protocol: Document 11/08/17 10:30 AMB (Rec: 11/08/17 10:45 AMB [id number]) OP-PT Subjective Patient Comments Patient Comments The patient reports she will be getting a shot on her Left next Saturday. Taking meloxicam, increased dosage of crestor. Seeing PCP in December regarding gait. PT-OP-D Balance Start: 10/30/17 10:02 Freq: Status: Active Protocol: Document 10/30/17 11:15 AMB (Rec: 10/31/17 07:58 AMB [email or web address]) Balance Tests Romberg Romberg positive Single Limb Standing Single Limb- Right unable Single Limb- Left unable Semi-Tandem Standing Semi-Tandem Standing Balance with head turns, LOB PT-OP-E Functional Tests Start: 10/30/17 13:02 Freq: Status: Active Protocol: Document 10/30/17 11:15 AMB (Rec: 10/30/17 13:06 AMB [email or web address]) Functional Tests Dynamic Gait Index (DGI) Score 11 DGI Impairment Rating 40 to <60% Impaired (Score 10- 14) PT-OP-F Manual Assessment Start: 10/30/17 10:02 Freq: Status: Active Protocol: Document 10/30/17 11:15 AMB (Rec: 10/30/17 16:18 AMB [email or web address]) Manual Assessments Joint Mobility Assessment Joint Mobility Assessment Stiff with PAs throughout lumbosacral spine, tenderness at paraspinals on the left. PT-OP-G Mobility & Gait Start: 10/30/17 10:02 Freq: Status: Active Protocol: Document 10/30/17 11:15 AMB (Rec: 10/30/17 16:18 AMB [email or web address]) OP Gait Assessment Comments Gait Comments Pt ambulates without assistive device, without trunk rotation. Decreased hip flexion leads to circumduction to raise leg over hurdles. Increased feeling of instability with walking faster. PT-OP-J Posture/Palpation/Skin Start: 10/30/17 10:02 Freq: Status: Active Protocol: Document 10/30/17 11:15 AMB (Rec: 10/30/17 16:18 AMB [email or web address]) Posture Evaluation Comments Posture Comments Moderate- severe thoracic kyphosis with excessive lumbar lordosis. PT-OP-K Range of Motion Start: 10/30/17 10:02 Freq: Status: Active Protocol: Document 10/30/17 11:15 AMB (Rec: 10/30/17 13:29 AMB [email or web address]) Lumbar Spine Range of Motion Lumbar Spine Active Degrees Flexion 40 Extension 20 Lateral Flexion Left 10 Lateral Flexion Right 10 PT-OP-M Strength Start: 10/30/17 10:02 Freq: Status: Active Protocol: Document 10/30/17 11:15 AMB (Rec: 10/30/17 13:29 AMB [email or web address]) Hip Strength Hip Manual Muscle Testing Right Flexion (L2) 3 Fair Extension (S1) 4- Good- Abduction 4- Good- Left Flexion (L2) 3- Fair- Extension (S1) 4- Good- Abduction 4- Good- Knee Strength Knee Manual Muscle Testing Right Flexion (S2) 4 Good Extension (L3) 4- Good- Left Flexion (S2) 4 Good Extension (L3) 4- Good- PT-OP-Q Treatments Start: 10/30/17 10:02 Freq: Status: Active Protocol: Document 11/08/17 10:30 AMB (Rec: 11/12/17 08:25 AMB [email or web address]) Cardio Equipment Recumbent Elliptical ([employer]) Duration (Minutes) 6 Resistance 5 Therapeutic Exercises Supine Exercises 5 Supine Exercise Name hip flexor/quad stretch Side left Reps/Minutes 30x2 4 Supine Exercise Name piriformis stretch Reps/Minutes 30x2 3 Supine Exercise Name hamstring stretch Reps/Minutes 30x2 1 Supine Exercise Name TrA stab Comments added march Prone Exercises 1 Prone Exercise Name Gentle lumbar extensions Comments on forearms Sidelying Exercises 1 Sidelying Exercise Name hip abd SLR Reps/Minutes 10 bilat Manual Therapy Treatment Joint Mobilizations 1 Joint lumbar PAs Grade II Body Position Prone Neuro Re-Education Treatment Balance Activities 1 Details Stride stance head turns Comments in corner Vestibular Rehabilitation X1 Viewing Details thumb, slow Comments in stride stance PT-OP-T Assessment and Plan Start: 10/30/17 10:02 Freq: Status: Active Protocol: Document 11/08/17 13:36 AMB (Rec: 11/08/17 14:41 AMB [email or web address]) Physical Therapy Assessment Assessment Summary Assessment No signs of BPPV with [place]- Hallpike. Pain on L lumbar, better extension after gentle PAs Physical Therapy Plan Next Visit Focus/Plan Next Note Type Treatment Note
--- NOTE | 2017-11-26 13:14 | PT.OTN ---
Current Diagnoses Other idiopathic scoliosis, site unspecified (11/26/17) Radiculopathy, lumbosacral region (11/26/17) Other biomechanical lesions of lumbar region (11/26/17) Physical Therapy Treatment Note PT-OP-A Visit Information Start: 10/30/17 10:02 Freq: Status: Active Protocol: Document 11/26/17 09:00 AMB (Rec: 11/26/17 09:08 AMB [id number]) Out-Patient Physical Therapy Visit Information Visit Information Visit Type Treatment Note Visit Start Time 09:00 Visit Stop Time 09:45 Total Visit Minutes 45 Visit Number 5 Evaluation Information Evaluation Date 10/30/17 PT-OP-B Current Condition Start: 10/30/17 10:02 Freq: Status: Active Protocol: Document 10/30/17 11:15 AMB (Rec: 10/30/17 11:31 AMB [id number]) Current Condition History of Current Condition Onset Date chronic Current Complaints L>R low back pain that can go into the hips, never past the knee History of Current Condition R sided low back pain is much improved since injection by Dr Francie Tee 2 weeks ago. Standing statically is still a painful. 5-8/10 pain before shot. 1-3/10 pain now, but a 1 mile walk did increase pain. 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 Fell 3x in July, fell down 2 stairs, listing to the R, falling to the right. No falls since July. Denies specific dizziness/ lightheadedness/spinning but feels off balance. Does report left ear pressure which is worst in the morning. 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 Lumbar and brain MRI. 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 Prior Functional Status Baseline Function- ADL's Independent Baseline Function- Mobility Independent Current Functional Impairments (Reported) Functional Limitations- ADL's Difficulty with yardwork, difficulty walking more than 15 minutes at a time, difficulty standing. PT-OP-C Subjective Start: 10/30/17 10:02 Freq: Status: Active Protocol: Document 11/26/17 09:00 AMB (Rec: 11/26/17 09:08 AMB [id number]) OP-PT Subjective Patient Comments Patient Comments Pt got her shot, and is feeling better, but not 100%, stiff in the mornings, has not been walking as much. PT-OP-D Balance Start: 10/30/17 10:02 Freq: Status: Active Protocol: Document 10/30/17 11:15 AMB (Rec: 10/31/17 07:58 AMB [email or web address]) Balance Tests Romberg Romberg positive Single Limb Standing Single Limb- Right unable Single Limb- Left unable Semi-Tandem Standing Semi-Tandem Standing Balance with head turns, LOB PT-OP-E Functional Tests Start: 10/30/17 13:02 Freq: Status: Active Protocol: Document 10/30/17 11:15 AMB (Rec: 10/30/17 13:06 AMB [email or web address]) Functional Tests Dynamic Gait Index (DGI) Score 11 DGI Impairment Rating 40 to <60% Impaired (Score 10- 14) PT-OP-F Manual Assessment Start: 10/30/17 10:02 Freq: Status: Active Protocol: Document 10/30/17 11:15 AMB (Rec: 10/30/17 16:18 AMB [email or web address]) Manual Assessments Joint Mobility Assessment Joint Mobility Assessment Stiff with PAs throughout lumbosacral spine, tenderness at paraspinals on the left. PT-OP-G Mobility & Gait Start: 10/30/17 10:02 Freq: Status: Active Protocol: Document 10/30/17 11:15 AMB (Rec: 10/30/17 16:18 AMB [email or web address]) OP Gait Assessment Comments Gait Comments Pt ambulates without assistive device, without trunk rotation. Decreased hip flexion leads to circumduction to raise leg over hurdles. Increased feeling of instability with walking faster. PT-OP-J Posture/Palpation/Skin Start: 10/30/17 10:02 Freq: Status: Active Protocol: Document 10/30/17 11:15 AMB (Rec: 10/30/17 16:18 AMB [email or web address]) Posture Evaluation Comments Posture Comments Moderate- severe thoracic kyphosis with excessive lumbar lordosis. PT-OP-K Range of Motion Start: 10/30/17 10:02 Freq: Status: Active Protocol: Document 10/30/17 11:15 AMB (Rec: 10/30/17 13:29 AMB [email or web address]) Lumbar Spine Range of Motion Lumbar Spine Active Degrees Flexion 40 Extension 20 Lateral Flexion Left 10 Lateral Flexion Right 10 PT-OP-M Strength Start: 10/30/17 10:02 Freq: Status: Active Protocol: Document 10/30/17 11:15 AMB (Rec: 10/30/17 13:29 AMB [email or web address]) Hip Strength Hip Manual Muscle Testing Right Flexion (L2) 3 Fair Extension (S1) 4- Good- Abduction 4- Good- Left Flexion (L2) 3- Fair- Extension (S1) 4- Good- Abduction 4- Good- Knee Strength Knee Manual Muscle Testing Right Flexion (S2) 4 Good Extension (L3) 4- Good- Left Flexion (S2) 4 Good Extension (L3) 4- Good- PT-OP-Q Treatments Start: 10/30/17 10:02 Freq: Status: Active Protocol: Document 11/26/17 09:25 AMB (Rec: 11/26/17 10:33 AMB [id number]) Cardio Equipment Recumbent Elliptical (BiodbeneSol) Duration (Minutes) 7 Resistance 5 Therapeutic Exercises Supine Exercises 6 Supine Exercise Name calf stretch Reps/Minutes 30x2 Comments HAJA 4 Supine Exercise Name piriformis stretch Reps/Minutes 30x2 3 Supine Exercise Name hamstring stretch Reps/Minutes 30x2 Prone Exercises 1 Prone Exercise Name Gentle lumbar extensions Comments on forearms Sidelying Exercises 1 Sidelying Exercise Name hip abd SLR Reps/Minutes 10 bilat Standing Exercises 1 Standing Exercise Name bicep curl, row, tricep press Comments focus on core stability and body mechanics to avoid pain PT-OP-T Assessment and Plan Start: 10/30/17 10:02 Freq: Status: Active Protocol: Document 11/26/17 09:08 AMB (Rec: 11/26/17 09:10 AMB [id number]) Physical Therapy Assessment Goals Four Impairment Strength Short Term Goal (STG) The patient will improve her core and hip strength so that she can perform a straight leg raise with good strength without an increase in back pain. STG Duration 4 weeks Bone Char Operator Goal (LTG) The patient will be able to step up on a curb without circumducting her hip. LTG Duration 8 weeks Three Impairment Balance Short Term Goal (STG) The patient will stand with modified tandem stance with head turns without loss of balance. STG Duration 4 weeks Two Impairment Activity Tolerance Short Term Goal (STG) The patient will walk for 1 mile (with breaks) without an increase in low back pain. 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 LTG Duration 8 weeks One Impairment Gait Bone Char Operator Goal (LTG) The patient will improve her dynamic gait index to 18/24 to show decreased risk of falls. LTG Duration 8 weeks Assessment Summary Assessment Pt would like to improve over all strength. Bought 3-5# weights for UE strength and needed guidance on how to use those without flaring back pain. Physical Therapy Plan Next Visit Focus/Plan Next Note Type Treatment Note Next Visit Plan Progress core strength/ dynamic balance.
--- NOTE | 2017-12-03 16:12 | PT.OTN ---
Current Diagnoses Other idiopathic scoliosis, site unspecified (12/03/17) Radiculopathy, lumbosacral region (12/03/17) Other biomechanical lesions of lumbar region (12/03/17) Physical Therapy Treatment Note PT-OP-A Visit Information Start: 10/30/17 10:02 Freq: Status: Active Protocol: Document 12/03/17 08:15 AMB (Rec: 12/03/17 16:12 AMB [email or web address]) Out-Patient Physical Therapy Visit Information Visit Information Visit Type Treatment Note Visit Start Time 08:15 Visit Stop Time 09:00 Total Visit Minutes 45 Visit Number 6 Evaluation Information Evaluation Date 10/30/17 PT-OP-B Current Condition Start: 10/30/17 10:02 Freq: Status: Active Protocol: Document 10/30/17 11:15 AMB (Rec: 10/30/17 11:31 AMB [id number]) Current Condition History of Current Condition Onset Date chronic Current Complaints L>R low back pain that can go into the hips, never past the knee History of Current Condition R sided low back pain is much improved since injection by Dr Francie Tee 2 weeks ago. Standing statically is still a painful. 5-8/10 pain before shot. 1-3/10 pain now, but a 1 mile walk did increase pain. 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 Fell 3x in July, fell down 2 stairs, listing to the R, falling to the right. No falls since July. Denies specific dizziness/ lightheadedness/spinning but feels off balance. Does report left ear pressure which is worst in the morning. 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 Lumbar and brain MRI. 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 Prior Functional Status Baseline Function- ADL's Independent Baseline Function- Mobility Independent Current Functional Impairments (Reported) Functional Limitations- ADL's Difficulty with yardwork, difficulty walking more than 15 minutes at a time, difficulty standing. PT-OP-C Subjective Start: 10/30/17 10:02 Freq: Status: Active Protocol: Document 12/03/17 08:15 AMB (Rec: 12/03/17 16:12 AMB [email or web address]) OP-PT Subjective Patient Comments Patient Comments Pt is still feeling more in pain in her lef posterior hip/ back area, but it is much better since her shot, more dull than sharp. She saw her mainframe consultant who states she has age related hearing loss bilaterally, but not unilaterally. PT-OP-D Balance Start: 10/30/17 10:02 Freq: Status: Active Protocol: Document 10/30/17 11:15 AMB (Rec: 10/31/17 07:58 AMB [email or web address]) Balance Tests Romberg Romberg positive Single Limb Standing Single Limb- Right unable Single Limb- Left unable Semi-Tandem Standing Semi-Tandem Standing Balance with head turns, LOB PT-OP-E Functional Tests Start: 10/30/17 13:02 Freq: Status: Active Protocol: Document 10/30/17 11:15 AMB (Rec: 10/30/17 13:06 AMB [email or web address]) Functional Tests Dynamic Gait Index (DGI) Score 11 DGI Impairment Rating 40 to <60% Impaired (Score 10- 14) PT-OP-F Manual Assessment Start: 10/30/17 10:02 Freq: Status: Active Protocol: Document 10/30/17 11:15 AMB (Rec: 10/30/17 16:18 AMB [email or web address]) Manual Assessments Joint Mobility Assessment Joint Mobility Assessment Stiff with PAs throughout lumbosacral spine, tenderness at paraspinals on the left. PT-OP-G Mobility & Gait Start: 10/30/17 10:02 Freq: Status: Active Protocol: Document 10/30/17 11:15 AMB (Rec: 10/30/17 16:18 AMB [email or web address]) OP Gait Assessment Comments Gait Comments Pt ambulates without assistive device, without trunk rotation. Decreased hip flexion leads to circumduction to raise leg over hurdles. Increased feeling of instability with walking faster. PT-OP-J Posture/Palpation/Skin Start: 10/30/17 10:02 Freq: Status: Active Protocol: Document 10/30/17 11:15 AMB (Rec: 10/30/17 16:18 AMB [email or web address]) Posture Evaluation Comments Posture Comments Moderate- severe thoracic kyphosis with excessive lumbar lordosis. PT-OP-K Range of Motion Start: 10/30/17 10:02 Freq: Status: Active Protocol: Document 10/30/17 11:15 AMB (Rec: 10/30/17 13:29 AMB [email or web address]) Lumbar Spine Range of Motion Lumbar Spine Active Degrees Flexion 40 Extension 20 Lateral Flexion Left 10 Lateral Flexion Right 10 PT-OP-M Strength Start: 10/30/17 10:02 Freq: Status: Active Protocol: Document 10/30/17 11:15 AMB (Rec: 10/30/17 13:29 AMB [email or web address]) Hip Strength Hip Manual Muscle Testing Right Flexion (L2) 3 Fair Extension (S1) 4- Good- Abduction 4- Good- Left Flexion (L2) 3- Fair- Extension (S1) 4- Good- Abduction 4- Good- Knee Strength Knee Manual Muscle Testing Right Flexion (S2) 4 Good Extension (L3) 4- Good- Left Flexion (S2) 4 Good Extension (L3) 4- Good- PT-OP-Q Treatments Start: 10/30/17 10:02 Freq: Status: Active Protocol: Document 12/03/17 08:15 AMB (Rec: 12/03/17 16:12 AMB [email or web address]) Cardio Equipment Recumbent Elliptical (CircleUp) Duration (Minutes) 7 Resistance 5 Therapeutic Exercises Sidelying Exercises 2 Sidelying Exercise Name clamshell Reps/Minutes 2x10 1 Sidelying Exercise Name hip abd SLR Reps/Minutes 10 bilat Other Exercises 2 Other Exercise Name brianna pose Reps/Minutes 30x2 1 Other Exercise Name quadruped hip ER Reps/Minutes 10 Comments vc to avoid trunk rotation Neuro Re-Education Treatment Balance Activities 3 Details single leg stance Reps/Duration 5 sec x 5 PT-OP-T Assessment and Plan Start: 10/30/17 10:02 Freq: Status: Active Protocol: Document 12/03/17 08:15 AMB (Rec: 12/03/17 16:12 AMB [email or web address]) Physical Therapy Assessment Goals Four Impairment Strength Short Term Goal (STG) The patient will improve her core and hip strength so that she can perform a straight leg raise with good strength without an increase in back pain. STG Duration 4 weeks Employee Counselor Goal (LTG) The patient will be able to step up on a curb without circumducting her hip. LTG Duration 8 weeks Three Impairment Balance Short Term Goal (STG) The patient will stand with modified tandem stance with head turns without loss of balance. STG Duration 4 weeks Two Impairment Activity Tolerance Short Term Goal (STG) The patient will walk for 1 mile (with breaks) without an increase in low back pain. 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 LTG Duration 8 weeks One Impairment Gait Employee Counselor Goal (LTG) The patient will improve her dynamic gait index to 18/24 to show decreased risk of falls. LTG Duration 8 weeks Assessment Summary Assessment Pt with continued hip ER weakness that makes keeping hips stable in single leg stance challenging. Physical Therapy Plan Next Visit Focus/Plan Next Note Type Discharge Summary Next Visit Plan Possible d/c next visit- recheck objective measures
--- NOTE | 2018-02-12 15:05 | PT.OPDS ---
Current Diagnoses Other idiopathic scoliosis, site unspecified (12/03/17) Radiculopathy, lumbosacral region (12/03/17) Other biomechanical lesions of lumbar region (12/03/17) Provider Visit Care Team Role Provider Type Gume Murray MD Primary Care Provider Physician Specialty: Family Practice Address: [address] [place] [address], [id number] Email: [email or web address] Wilner Tee DO Attending Provider Physician Specialty: Physiatry Pain Management Address: [address] [place] [address], [id number] Email: Visit Number Visit Number 6 Discharge Summary PT-OP-B Current Condition Start: 10/30/17 10:02 Freq: Status: Active Protocol: Document 10/30/17 11:15 AMB (Rec: 10/30/17 11:31 AMB [id number]) Current Condition History of Current Condition Onset Date chronic Current Complaints L>R low back pain that can go into the hips, never past the knee History of Current Condition R sided low back pain is much improved since injection by Dr Francie Tee 2 weeks ago. Standing statically is still a painful. 5-8/10 pain before shot. 1-3/10 pain now, but a 1 mile walk did increase pain. 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 Fell 3x in July, fell down 2 stairs, listing to the R, falling to the right. No falls since July. Denies specific dizziness/ lightheadedness/spinning but feels off balance. Does report left ear pressure which is worst in the morning. 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 Lumbar and brain MRI. 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 Prior Functional Status Baseline Function- ADL's Independent Baseline Function- Mobility Independent Current Functional Impairments (Reported) Functional Limitations- ADL's Difficulty with yardwork, difficulty walking more than 15 minutes at a time, difficulty standing. PT-OP-C Subjective Start: 10/30/17 10:02 Freq: Status: Active Protocol: Document 12/03/17 08:15 AMB (Rec: 12/03/17 16:12 AMB [email or web address]) OP-PT Subjective Patient Comments Patient Comments Pt is still feeling more in pain in her lef posterior hip/ back area, but it is much better since her shot, more dull than sharp. She saw her optical engineer who states she has age related hearing loss bilaterally, but not unilaterally. PT-OP-D Balance Start: 10/30/17 10:02 Freq: Status: Active Protocol: Document 10/30/17 11:15 AMB (Rec: 10/31/17 07:58 AMB [email or web address]) Balance Tests Romberg Romberg positive Single Limb Standing Single Limb- Right unable Single Limb- Left unable Semi-Tandem Standing Semi-Tandem Standing Balance with head turns, LOB PT-OP-E Functional Tests Start: 10/30/17 13:02 Freq: Status: Active Protocol: Document 10/30/17 11:15 AMB (Rec: 10/30/17 13:06 AMB [email or web address]) Functional Tests Dynamic Gait Index (DGI) Score 11 DGI Impairment Rating 40 to <60% Impaired (Score 10- 14) PT-OP-F Manual Assessment Start: 10/30/17 10:02 Freq: Status: Active Protocol: Document 10/30/17 11:15 AMB (Rec: 10/30/17 16:18 AMB [email or web address]) Manual Assessments Joint Mobility Assessment Joint Mobility Assessment Stiff with PAs throughout lumbosacral spine, tenderness at paraspinals on the left. PT-OP-G Mobility & Gait Start: 10/30/17 10:02 Freq: Status: Active Protocol: Document 10/30/17 11:15 AMB (Rec: 10/30/17 16:18 AMB [email or web address]) OP Gait Assessment Comments Gait Comments Pt ambulates without assistive device, without trunk rotation. Decreased hip flexion leads to circumduction to raise leg over hurdles. Increased feeling of instability with walking faster. PT-OP-J Posture/Palpation/Skin Start: 10/30/17 10:02 Freq: Status: Active Protocol: Document 10/30/17 11:15 AMB (Rec: 10/30/17 16:18 AMB [email or web address]) Posture Evaluation Comments Posture Comments Moderate- severe thoracic kyphosis with excessive lumbar lordosis. PT-OP-K Range of Motion Start: 10/30/17 10:02 Freq: Status: Active Protocol: Document 10/30/17 11:15 AMB (Rec: 10/30/17 13:29 AMB [email or web address]) Lumbar Spine Range of Motion Lumbar Spine Active Degrees Flexion 40 Extension 20 Lateral Flexion Left 10 Lateral Flexion Right 10 PT-OP-M Strength Start: 10/30/17 10:02 Freq: Status: Active Protocol: Document 10/30/17 11:15 AMB (Rec: 10/30/17 13:29 AMB [email or web address]) Hip Strength Hip Manual Muscle Testing Right Flexion (L2) 3 Fair Extension (S1) 4- Good- Abduction 4- Good- Left Flexion (L2) 3- Fair- Extension (S1) 4- Good- Abduction 4- Good- Knee Strength Knee Manual Muscle Testing Right Flexion (S2) 4 Good Extension (L3) 4- Good- Left Flexion (S2) 4 Good Extension (L3) 4- Good- PT-OP-T Assessment and Plan Start: 10/30/17 10:02 Freq: Status: Active Protocol: Document 02/12/18 15:01 AMB (Rec: 02/12/18 15:05 AMB [email or web address]) Physical Therapy Assessment Goals Four Impairment Strength Short Term Goal (STG) The patient will improve her core and hip strength so that she can perform a straight leg raise with good strength without an increase in back pain. STG Duration 4 weeks Assisted Goal (LTG) The patient will be able to step up on a curb without circumducting her hip. LTG Duration 8 weeks Three Impairment Balance Short Term Goal (STG) The patient will stand with modified tandem stance with head turns without loss of balance. STG Duration 4 weeks Two Impairment Activity Tolerance Short Term Goal (STG) The patient will walk for 1 mile (with breaks) without an increase in low back pain. STG Duration 4 weeks Public Health Professor Goal (LTG) The patient will perform a partial squat to unload her political science professor without excessive flexion of the spine without an increase in pain. LTG Duration 8 weeks One Impairment Gait Assisted Goal (LTG) The patient will improve her dynamic gait index to 18/24 to show decreased risk of falls. LTG Duration 8 weeks Assessment Summary Assessment The patient was seen for 6 visits in October and November. Over that time her pain was improving, but she continued to have hip and abdominal stabilization weakness at her last appointment. She has not wanted to schedule more appointments at this time so she is therefore discharged. Physical Therapy Plan Discharge Physical Therapy Discharge Reasons No Longer Attending PT
== END 2018-03-04 10:37 ==
LOC: PHYS 08:15
PROVIDERS: PCP Family Medicine; Visit Provider Physical Medicine & Rehabilitation
DX: M99.83 Other biomechanical lesions of lumbar region (principal); M54.17 Radiculopathy, lumbosacral region; M41.20 Other idiopathic scoliosis, site unspecified
CPT/HCPCS: 97110; 97112; 97140; 97162

== ENCOUNTER → 2017-12-04 09:30 | Outpatient (CLI) | payer MEDICARE, OTHER, SELFPAY ==
--- NOTE | 2017-12-04 | DI.MG.S_ITS ---
BILATERAL DIGITAL SCREENING MAMMOGRAM 3D/2D WITH CAD: 12/04/2017 CLINICAL: Routine screening. Family history of breast cancer. Comparison is made to exams dated: 12/03/2016 mammogram, 11/23/2015 mammogram, and 11/18/2014 mammogram - [facility]. The tissue of both breasts is heterogeneously dense. This may lower the sensitivity of mammography. Current study was also evaluated with a Computer Aided Detection (CAD) system. There are benign calcifications in both breasts. No significant masses, calcifications, or other findings are seen in either breast. There has been no significant interval change. IMPRESSION: BENIGN There is no mammographic evidence of malignancy. A 1 year screening mammogram is recommended. This exam was interpreted at Station ID: [id number]. NOTE: For mammograms, a report in lay terms will be sent to the patient. Approximately 15% of breast malignancies will not be visualized mammographically. In the management of a palpable breast mass, a negative mammogram must not discourage biopsy of a clinically suspicious lesion. Electronically Signed By: Ronaldo [email or web address]/[email or web address]:12/04/2017 15:30:04 letter sent: Normal Exam ACR BI-RADS Category 2: Benign Finding(s) 3342F
== END ==
PROVIDERS: PCP Family Medicine; Visit Provider Family Medicine
DX: Z12.31 Encounter for screening mammogram for malignant neoplasm of breast (principal)
CPT/HCPCS: 77063; 77067

== ENCOUNTER → 2018-01-07 14:35 | Outpatient (CLI) | payer MEDICARE, OTHER, SELFPAY ==
[2018-01-07 14:58] LABS: Add Manual Diff / Slide Review NO; Basophils Percent Auto 1.1 % (0-2); Eosinophils Percent Auto 1.6 % (2-4); Hematocrit 36.3 % (36-46); Hemoglobin 12.5 g/dL (12.0-16.0); Lymphocytes Percent Auto 29.6 % (25-40); Mean Corpuscular HGB Conc 34.3 % (30-36); Mean Corpuscular Volume 96.1 fL (80-100); Monocytes Percent Auto 7.7 % (3-14); Neutrophils Absolute Auto 5700 /uL (3000-5900); Platelet Count 243 X10^3/uL (150-400); Red Blood Cell Count 3.78 X10^6/uL (4.0-5.2); Red Cell Distribution Width 12.4 % (11.6-14.8); White Blood Cell Count 9.4 X10^3/uL (4.5-11.0)
[2018-01-07 15:18] LABS: Blood Urea Nitrogen 35 mg/dL (7-17); Calcium 11.8 mg/dL (8.4-10.2); Carbon Dioxide 32 mmol/L (22-32); Chloride 102 mmol/L (98-107); Glucose 112 mg/dL (80-110); HEMOLYSIS < 15 (0-50); Magnesium 1.9 mg/dL (1.6-2.3); Potassium 4.8 mmol/L (3.4-5.1); Sodium 145 mmol/L (137-145)
== END ==
PROVIDERS: PCP Family Medicine; Visit Provider Family Medicine
DX: I10 Essential (primary) hypertension (principal)
CPT/HCPCS: 36415; 80048; 83735; 85025

== ENCOUNTER → 2018-02-04 10:52 | Outpatient (CLI) | payer MEDICARE, OTHER, SELFPAY ==
[2018-02-04 12:58] LABS: BUN Creatinine Ratio 24.5 (6-22); Blood Urea Nitrogen 27 mg/dL (7-17); Calcium 12.1 mg/dL (8.4-10.2); Carbon Dioxide 26 mmol/L (22-32); Chloride 102 mmol/L (98-107); Estimated Glomerular Filt Rate 48.8 mL/min (>60); Glucose 108 mg/dL (80-110); HEMOLYSIS < 15 (0-50); Potassium 5.1 mmol/L (3.4-5.1); Sodium 144 mmol/L (137-145)
== END ==
PROVIDERS: PCP Family Medicine; Visit Provider Family Medicine
DX: N28.9 Disorder of kidney and ureter, unspecified (principal)
CPT/HCPCS: 36415; 80048

== ENCOUNTER → 2018-02-20 08:21 | Outpatient (CLI) | payer MEDICARE, OTHER, SELFPAY ==
[2018-02-20 10:48] LABS: Cholesterol 133 mg/dL (140-199); HDL Cholesterol 49 mg/dL (40-60); LDL Cholesterol Calculated 66 mg/dL (<100); Triglycerides 88 mg/dL (35-150)
[2018-02-20 11:18] LABS: Thyroid Stimulating Hormone 1.83 uIU/mL (0.47-4.68)
[2018-02-22 13:21] LABS: Parathyroid Hormone Int 107 pg/mL (14-64)
== END ==
PROVIDERS: PCP Family Medicine; Visit Provider Family Medicine
DX: I10 Essential (primary) hypertension (principal)
CPT/HCPCS: 36415; 80061; 83970; 84443

== ENCOUNTER → 2018-02-25 07:43 | Outpatient (CLI) | payer MEDICARE, OTHER, SELFPAY ==
--- NOTE | 2018-02-25 07:46 | DI.MRI.S_ITS ---
PROCEDURE: MR CERVICAL SPINE WO CON INDICATIONS: cervical radiculopathy TECHNIQUE: Noncontrast sagittal T1 spin echo and T2 fast spin echo, sagittal STIR, foraminal oblique sagittal T2 fast spin echo, and axial gradient echo or T2 fast spin echo through the cervical spine. COMPARISON: [facility], CT, C-SPINE WITHOUT CONTRAST, 08/03/2017, 21:07. FINDINGS: Image quality: Excellent. Alignment and Curvature: There is normal bony alignment. Bone Marrow: Marrow demonstrates normal overall signal. Spinal Cord: Visualized spinal cord has normal size and signal. No cerebellar tonsillar herniation. Paraspinous Soft Tissues: No paravertebral masses. Prevertebral soft tissues are normal in thickness. C2-C3: Congenital canal stenosis. Mild disc desiccation and diffuse disc bulge. Small superimposed central protrusion. Mild facet hypertrophy bilaterally. Mild canal stenosis. No foraminal stenosis. C3-C4: Congenital canal stenosis. Mild disc at loss and desiccation. Mild diffuse disc bulge with superimposed small central protrusion. Moderate canal stenosis. No foraminal stenosis. C4-C5: Congenital canal stenosis. Mild disc height loss and desiccation. Mild diffuse disc bulge with superimposed small central protrusion. Mild bilateral facet and uncovertebral hypertrophy. There is overall moderate canal stenosis. Minimal right anterior cord flattening. Mild bilateral foraminal stenosis. C5-C6: Congenital canal stenosis. Mild disc height loss and desiccation. Mild diffuse disc bulge with superimposed central protrusion. Mild facet and uncovertebral hypertrophy. Moderate canal stenosis. Minimal anterior cord flattening. Mild bilateral foraminal stenosis. C6-C7: Congenital canal stenosis. Mild disc height loss and desiccation. Mild diffuse disc bulge. Mild bilateral facet and uncovertebral hypertrophy. Moderate canal stenosis. Mild right greater than left foraminal stenosis. C7-T1: Disc desiccation. No significant canal, nor foraminal stenosis. IMPRESSION: 1. Diffuse congenital canal stenosis with superimposed disc and facet disease, as well as uncovertebral hypertrophy. 2. Multilevel canal stenoses, worst at C3-C4, C4-C5, C5-C6, and C6-C7, where there are moderate canal stenoses present. Minimal cord flattening is present at C4-C5 and C5-C6. 3. Mild multilevel foraminal stenoses. Dictated by: Isabella Ta M.D. on 02/25/2018 at 9:43 Approved by: Isabella Ta M.D. on 02/25/2018 at 9:49
== END ==
PROVIDERS: PCP Family Medicine; Visit Provider Family Medicine
DX: M48.02 Spinal stenosis, cervical region (principal); M50.11 Cervical disc disorder with radiculopathy, high cervical region
CPT/HCPCS: 72141

== ENCOUNTER → 2018-03-03 07:07 | Outpatient (CLI) | payer MEDICARE, OTHER, SELFPAY ==
--- NOTE | 2018-03-03 07:09 | DI.US.S_ITS ---
PROCEDURE: US CAROTID DOPPLER BI INDICATIONS: BRUIT TECHNIQUE: Color and pulse Doppler interrogation was performed of both carotid systems, with image documentation and velocity measurements. COMPARISON: None. FINDINGS: Stenosis calculations are based on SRU (Society of Radiologists in Ultrasound) criteria. Right side: Brachial blood pressure: 151/67 mm Hg. Common carotid artery peak systolic velocity: 74 cm/sec. Internal carotid artery peak systolic velocity: 139 cm/sec. Internal carotid artery end diastolic velocity: 27 cm/sec. External carotid artery peak systolic velocity: 75 cm/sec. ICA/CCA peak systolic ratio: 1.9. Knowles scale imaging description: Moderate scattered plaque. Percent internal carotid artery stenosis: 50-69%. Vertebral artery: Not visualized. Left side: Brachial blood pressure: 134/57mm Hg. Common carotid artery peak systolic velocity: 57 cm/sec. Internal carotid artery peak systolic velocity: 224 cm/sec. Internal carotid artery end diastolic velocity: 34 cm/sec. External carotid artery peak systolic velocity: 163 cm/sec. ICA/CCA peak systolic ratio: 4.0. Knowles scale imaging description: Moderate scattered plaque. Percent internal carotid artery stenosis: 50-69% stenosis. Vertebral artery: Flow direction is antegrade. IMPRESSION: 50-69% bilateral ICA stenoses, left greater than right. Right vertebral artery not visualized. Dictated by: Lorenzo Hyatt Sahil Interpreted: Darren Villanueva MD on 03/03/2018 at 8:44 Approved by: Darren Villanueva M.D. on 03/03/2018 at 13:40
== END ==
PROVIDERS: PCP Family Medicine; Visit Provider Family Medicine
DX: I65.23 Occlusion and stenosis of bilateral carotid arteries (principal); R09.89 Other specified symptoms and signs involving the circulatory and respiratory systems
CPT/HCPCS: 93880

== ENCOUNTER 2018-04-09 09:38 | Outpatient (CLI) | payer MEDICARE, OTHER, SELFPAY ==
[2018-04-09] VITALS (8 sets, daily range): BP systolic 119–142; BP diastolic 51–69; PULSE 54–75; RESP 16–18; O2SAT 95–100
--- NOTE | 2018-04-09 09:41 | DI.RAD.S_ITS ---
PROCEDURE: PAIN L/SI FACET INJ/BLK 1STL INDICATIONS: SPONDYLOSIS FINDINGS: Fluoroscopic spot filming was performed to verify placement of spinal needles at the left L4, L5, and S1 medial branch region level(s), as labeled on the films. Appropriate location(s) of the needle tip(s) was confirmed by injection of iodinated contrast. IMPRESSION: Successful left-sided needle tip localization for left L4, L5 and S1 medial branch block procedures. Dictated by: Jamin Harmon M.D. on 04/09/2018 at 16:17 Approved by: Jamin Harmon M.D. on 04/09/2018 at 16:18
[2018-04-09] MEDS: MIDAZOLAM 5 MG/5 ML VIAL IV (10:12)
[2018-04-09] MEDS: IOPAMIDOL 15 ML VIAL 3 ML INJ (10:21)
[2018-04-09] MEDS: LIDOCAINE 1% 20 ML INJ 10 ML INJ (10:21)
[2018-04-09] MEDS: BUPIVACAINE 0.5% (PF) VIAL 2 ML INJ (10:21)
[2018-04-09] MEDS: BETAMETHASONE 30 MG/5 ML MDV 12 MG INJ (10:22)
--- NOTE | 2018-04-09 10:27 | P.PCN_ITS ---
Procedures Date/Time Date of procedure: 04/09/18 Time of procedure: 10:26 General Procedure description: POST OP DIAGNOSIS 1. FACET ARTHROPATHY PROCEDURES 1. Left L4, L5 and S1 MB BLOCKS PHYSICIAN: DO CLAIRE Bain Heather is referred by Dr. Murray for treatment of Left Axial LBP. DESCRIPTION OF PROCEDURE Fluoroscopically guided, contrast-controlled left L4, L5 and S1 medial branch blocks with 0.5cc of 0.5% Marcaine. Following denial of allergy and review of potential side effects and complications, including, but not necessarily limited to, infection, allergic reaction, local tissue breakdown, nerve injury, paralysis, stroke and possible , the patient indicated that the patient understood and agreed to proceed. An informed consent document was signed by the patient, witnessed by a nurse, and placed in the patient's chart. After review of previous anaesthesic history and IV conscious sedation the patient was deemed safe to proceed with todays procedure with IV conscious sedation as ASA class II designation. Safety time-out was performed to confirm patient ID, procedure to be performed and site of procedure. IV sedation was accomplished with a combination of 3mg of Versed was administered by the RN after DO order, titrated to patient comfort during the course of the procedure while the patient remained responsive to all verbal commands. In the prone position, following sterile prep and drape of the lumbar region, the left L4, L5 and S1 anatomical location of the medial branch of the dorsal ramus was identified fluoroscopically. Subsequently an anesthetic skin wheal using 1% lidocaine solution was initiated at each of the anatomical spots. Subsequently then a 22-gauge 3.5-inch spinal needle was atraumatically introduced and advanced under fluoroscopic guidance at each of the corresponding sites at the left L4, L5 and S1 MB. After negative aspiration, 0.2 cc of Isovue 200 was injected, confirming placement without vascular or intrathecal uptake. Subsequently then 0.5 cc of 0.5% Marcaine solution was injected at each of the corresponding sites at the left L4, L5 and S1 medial branch locations. The patient tolerated the procedure well without signs or symptoms of complications. The patient tolerated the procedure well without signs or symptoms of complications prior to transfer to the recovery area continued monitoring without incident. Post-procedure, the patient was monitored initiating provocative activities to measure the amount of relief from block of the facetogenic pain. The patient reported a VAS of 7 prior to the procedure and a post-procedure VAS of 1. It has been a pleasure to assist in the diagnostic and therapeutic care of your patient. Total Fluoroscopy Time: 24.8 seconds Total Conscious Sedation Time: 24min POST OP INSTRUCTIONS The patient was provided with a Pain Log to complete over the next several hours and subsequent days prior to the patient's follow up with the ordering physician. If the patient has housekeeper cleaning cooking relief to the solution applied, then they may be a candidate for medial branch rhizotomy. The patient is aware , was provided, once again, with a Pain Log and will follow up with the referring physician for review and clinical correlation Wilner Tee DO Complications: none
--- NOTE | 2018-04-09 11:43 | PC.NURSE ---
Received pt from post procedure. pt alert and able to move from W/C to chair with 2 person standby assist. She is a little sedated. REsumed monitoring.
== END 2018-04-09 11:34 ==
LOC: RAD 09:40
PROVIDERS: PCP Family Medicine; Visit Provider Physical Medicine & Rehabilitation
DX: M47.817 Spondylosis without myelopathy or radiculopathy, lumbosacral region (principal); M47.816 Spondylosis without myelopathy or radiculopathy, lumbar region
CPT/HCPCS: 64493; 64494; 99152; J0702; J2250

== ENCOUNTER 2018-05-13 12:29 | Outpatient (CLI) | payer MEDICARE, OTHER, SELFPAY ==
[2018-05-13] VITALS (10 sets, daily range): BP systolic 94–137; BP diastolic 41–61; PULSE 54–96; RESP 16–18; TEMP 36; O2SAT 98–100
--- NOTE | 2018-05-13 12:31 | DI.RAD.S_ITS ---
PROCEDURE: PAIN L/S MED/LAT N RFA INDICATIONS: SPONDYLOSIS FINDINGS: Fluoroscopic spot filming was performed to verify placement of spinal needles at the L4, L5, S1 level(s), as labeled on the films. Appropriate location(s) of the needle tip(s) was confirmed by injection of iodinated contrast. Dictated by: Darren Villanueva M.D. on 05/13/2018 at 15:09 Approved by: Darren Villanueva M.D. on 05/13/2018 at 15:11
--- NOTE | 2018-05-13 12:58 | PC.NURSE ---
reports, only took 1/2 valium captain's assistant.
[2018-05-13] MEDS: MIDAZOLAM 5 MG/5 ML VIAL IV (13:24)
[2018-05-13] MEDS: fentaNYL 100 MCG/2 ML INJ 50 MCG IV (13:33)
[2018-05-13] MEDS: BUPIVACAINE 0.5% (PF) VIAL 2 ML INJ (13:39)
[2018-05-13] MEDS: BETAMETHASONE 30 MG/5 ML MDV 12 MG INJ (13:39)
[2018-05-13] MEDS: LIDOCAINE 1% 20 ML INJ 10 ML INJ (13:40)
--- NOTE | 2018-05-13 13:54 | PC.NURSE ---
assisting pt off table and transporting to post proc area in stable condition
--- NOTE | 2018-05-13 14:01 | P.PCN_ITS ---
Procedures Date/Time Date of procedure: 05/13/18 Time of procedure: 14:00 General Procedure description: PREOP DIAGNOSIS 1. RECALCITRANT FACET ARTHROPATHY, POST OP DIAGNOSIS 1. RECALCITRANT FACET ARTHROPATHY, PROCEDURES 1. LEFTT L4 AND L5 MEDIAL BRANCH RADIOFREQUENCY NEUROTOMY AND LEFT S1 DORSAL RAMUS RADIOFREQUENCY NEUROTOMY, PHYSICIAN: Wilner Tee, DO INDICATIONS Heather is referred by for treatment of facet arthropathy. DESCRIPTION OF PROCEDURE Left L4 and L5 medial branch radiofrequency neurotomy and left S1 dorsal ramus branch radiofrequency neurotomy under fluoroscopy with conscious sedation. The patient is well known to this clinic having undergone previous facet injections with good but temporary relief. The patient has experienced appropriate, concordant relief with previous facet and median branch blocks but the patient's pain has been recalcitrant to further conservative measures. Therefore, based upon the patient's relief and persistent symptoms, the patient is considered an appropriate candidate for facet rhizotomy. All of the patient' s questions regarding the risks versus benefits of the procedure, including, but not limited to, bleeding, infection, temporary as well as lasting nerve injury, paralysis, stroke, and , as well treatment alternatives were answered to satisfaction. After obtaining informed consent, denial of pertinent drug allergies, as well as being made aware of the potential risks of bleeding, infection, spinal cord trauma, paralysis, temporary and permanent nerve damage, seizure, stroke, and possible , the patient was brought to the fluoroscopy suite and positioned prone on the fluoroscopy table. The lumbar region was prepped with Betadine and covered with a fenestrated drape in the usual sterile fashion. Appropriate monitors applied including pulse oximeter, pulse, and blood pressure for regular monitoring throughout the procedure. After review of previous anaesthesic history and IV conscious sedation the patient was deemed safe to proceed with todays procedure with IV conscious sedation as ASA class II designation. Safety time-out was performed to confirm patient ID, procedure to be performed and site of procedure. IV sedation was accomplished with a combination of 2mg of Versed and 50mcg of Fentanyl administered by the RN after DO order, titrated to patient comfort during the course of the procedure while the patient remained responsive to all verbal commands. After local infiltration using 1% lidocaine, under fluoroscopic guidance, a 10- cm RF insulated needle with a 10-mm active tip was positioned parallel to the junction of the left sacral ala and the superior articulating process where the S1 dorsal ramus resides. Needle placement was confirmed with sensory stimulation at 50 Hz, with motor stimulation of .5v on the left which produced local stimulation without radicular component. The stimulation was then increased to 1.5v with, once again, only local multifidus stimulation without radicular component. This was then followed by two discreet lesions performed at 80 degrees Celsius for 90 seconds each. The needle was then removed and the identical procedure was performed along the length of the left L5 medial branch with motor stimulation at .7v on the leftt. The identical procedure was once again performed along the length of the left L4 medial branch with motor stimulation of .5v on the left. The patient tolerated the procedure well without signs or symptoms of complications prior to transfer to the recovery area continued monitoring without incident. The patient was then transferred to the recovery area where they were observed for an appropriate period of time after the injection. The patient was then transferred to the recovery area where they were observed for an appropriate period of time after the injection. The patient reported a VAS score of 7 prior to the procedure and a post- procedure VAS of 0. Total Fluoroscopy Time: 22.7 seconds Total Conscious Sedation Time: 34min POST OP INSTRUCTIONS The patient was provided a Pain Log to continue to record the patient's response to the target-specific procedure prior to the patient's follow-up visit with the referring physician. Additionally, specific post-injection care instructions and a contact number to our office were provided if concerns arise regarding possible complications associated with the procedure are suspected. Wilner Tee DO Complications: none
--- NOTE | 2018-05-13 14:09 | PC.NURSE ---
pt returned via w/c post procedure is alert and able to get from w/c to chair with standby assist, and resuming monitoring from maria ines vazquez.
--- NOTE | 2018-05-13 14:11 | PC.NURSE ---
conversing with friend, denies nausea, nad. tolerating po fluids and snacking on cookies.
--- NOTE | 2018-05-14 14:00 | PC.NURSE ---
FOLLOW UP CALL MADE. PT DENIES PAIN, QUESTIONS OR CONCERNS. REMINDED HER TO KEEP HER PAIN LOG AND THAT CLINIC NUMBER IS ON BACK IF SHE NEEDS IT.
== END 2018-05-13 14:43 | disposition home or self-care (01) ==
PROVIDERS: PCP Family Medicine; Visit Provider Physical Medicine & Rehabilitation
DX: M47.817 Spondylosis without myelopathy or radiculopathy, lumbosacral region (principal)
CPT/HCPCS: 64635; 64636; 99152; J0702; J2250; J3010

== ENCOUNTER 2018-07-16 09:37 | Outpatient (CLI) | payer MEDICARE, OTHER, SELFPAY ==
[2018-07-16] VITALS (8 sets, daily range): BP systolic 127–150; BP diastolic 52–70; PULSE 54–64; RESP 16–18; TEMP 36.4; O2SAT 97–100
--- NOTE | 2018-07-16 09:38 | DI.RAD.S_ITS ---
PROCEDURE: PAIN SI JOINT INJECTION INDICATIONS: RADICULOPATHY FINDINGS: Fluoroscopic spot filming was performed to verify placement of spinal needles at the sacroiliac joint level(s) bilaterally, as labeled on the films. Appropriate location(s) of the needle tip(s) was confirmed by injection of iodinated contrast. IMPRESSION: Successful bilateral sacroiliac joint localization for steroid injection, inferior third of the joint bilaterally from posterior approach. Dictated by: Jamin Harmon M.D. on 07/16/2018 at 11:43 Approved by: Jamin Harmon M.D. on 07/16/2018 at 11:43
[2018-07-16] MEDS: MIDAZOLAM 5 MG/5 ML VIAL IV (10:35)
[2018-07-16] MEDS: BUPIVACAINE 0.5% (PF) VIAL 2 ML INJ (10:40)
[2018-07-16] MEDS: LIDOCAINE 1% 20 ML INJ 5 ML INJ (10:40)
[2018-07-16] MEDS: IOPAMIDOL 15 ML VIAL 3 ML INJ (10:41)
[2018-07-16] MEDS: BETAMETHASONE 30 MG/5 ML MDV 12 MG INJ (10:41)
--- NOTE | 2018-07-16 10:53 | PM.PROC.1 ---
Procedures Date/Time Date of procedure: 07/16/18 Time of procedure: 10:53 General Procedure description: PREOP Dx: Sacroiliac joint pain/DJD POST OP DX: Sacroiliac Joint Pain/DJD Procedures: Fluoroscopic guided contrast controlled bilateral sacroiliac joint injection Physician: Wilner Tee D.O. Indications: Heather is referred by for treatment of bilateral sacroiliac joint DJD Description of procedure Fluoroscopic guided, contrast controlled left sacroiliac joint injection Following denial of allergies and review of potential side effects and complications, including, but not necessarily limited to, infection, allergic reaction, local tissue breakdown, temporary as well as permanent nerve injury, paralysis, stroke and possible , the patient indicated that they understood and agreed to proceed. An informed consent was signed by the patient, witnessed by a nurse, and placed in the patient's chart. Additionally, other treatment options including modalities, medications, and physical therapy were reviewed with the patient. After review of previous anaesthesic history and IV conscious sedation the patient was deemed safe to proceed with todays procedure with IV conscious sedation as ASA class II designation. Safety time-out was performed to confirm patient ID, procedure to be performed and site of procedure. IV sedation was accomplished with a combination of 3mg of Versed administered by the RN after DO order, titrated to patient comfort during the course of the procedure while the patient remained responsive to all verbal commands. In the prone position following sterile prep and drape of the pelvic region, the hyper lucency on in the inferior aspect of the left sacroiliac joint was identified fluoroscopically the skin was anesthetized be a 25 gauge 1 eventual with approximately 2 cc of 1% lidocaine solution. At this point, a 22 gauge 3 in spinal needle was atraumatically introduced and advanced under fluoroscopic guidance into the inferior aspect of the left sacroiliac joint. Following negative aspiration, approximately 0.3 cc of Isovue-300 was injected confirming intra-articular placement without vascular uptake. Radiographic data, including multiple fluoroscopic views of the pelvis, reveals a spinal needle in the left sacroiliac joint hyper lucent zone. Subsequent view show flow contrast tear superiorly and inferiorly within the joint capsule without vascular intrathecal uptake. At this point a total of 1 cc or 0 8 of 0.5% Marcaine was combined with 1 cc of 6 mg of betamethasone was injected without incident. The identical procedure was replicated on the right. The patient tolerated the procedure well without signs or symptoms of complications prior to transfer to the recovery area for further monitoring. The patient was then transferred to the recovery area with a bur observed for an appropriate time after the injection. The patient reverted a vas score of 7 prior to the procedure and post procedure vas of 1. Total fluoroscopy time: 22.7 sec Total conscious sedation time: 24 min Postop instructions The patient was provided with a pain like to continue to record the patient's response to the target specific procedure prior to the patient's follow-up visit with the referring physician. Additionally, specific post injection care instructions and a contact number to our office were provided if concerns arise regarding the possible complications associated with procedure are suspected. Wilner Tee D.O. Complications: none
--- NOTE | 2018-07-16 10:57 | PC.NURSE ---
Pt tolerated procedure well. Able to get off the table with standby assist. Transferred to pre procedure room via wheelchair for continued monitoring with Maureen NATION.
== END 2018-07-16 11:19 | disposition home or self-care (01) ==
LOC: RAD 09:38
PROVIDERS: PCP Family Medicine; Visit Provider Physical Medicine & Rehabilitation
DX: M53.3 Sacrococcygeal disorders, not elsewhere classified (principal); M47.898 Other spondylosis, sacral and sacrococcygeal region
CPT/HCPCS: 27096; 99152; J0702; J2250; J3010

== ENCOUNTER 2018-09-02 12:28 | Outpatient (CLI) | payer MEDICARE, OTHER, SELFPAY ==
[2018-09-02] VITALS (8 sets, daily range): BP systolic 112–143; BP diastolic 44–87; PULSE 52–78; RESP 16–18; TEMP 36.2; O2SAT 97–100
--- NOTE | 2018-09-02 12:29 | DI.RAD.S_ITS ---
PROCEDURE: PAIN L/SI FACET INJ/BLK 1STL INDICATIONS: SPONDYLOSIS FINDINGS: Fluoroscopic spot filming was performed to verify placement of spinal needles at the right L4-S1 level(s), as labeled on the films. Appropriate location(s) of the needle tip(s) was confirmed by injection of iodinated contrast. IMPRESSION: Successful right perineural needle tip localization for L4-S1 medial branch block procedure on the right. Dictated by: Jamin Harmon M.D. on 09/02/2018 at 14:16 Approved by: Jamin Harmon M.D. on 09/02/2018 at 14:16
[2018-09-02] MEDS: MIDAZOLAM 5 MG/5 ML VIAL IV (13:13)
[2018-09-02] MEDS: fentaNYL 100 MCG/2 ML INJ 50 MCG IV (13:13)
[2018-09-02] MEDS: LIDOCAINE 1% 20 ML INJ 5 ML INJ (13:23)
[2018-09-02] MEDS: IOPAMIDOL 15 ML VIAL 3 ML INJ (13:23)
[2018-09-02] MEDS: BUPIVACAINE 0.5% (PF) VIAL 2 ML INJ (13:23)
[2018-09-02] MEDS: BETAMETHASONE 30 MG/5 ML MDV 12 MG INJ (13:23)
--- NOTE | 2018-09-02 13:24 | PC.NURSE ---
ASSISTING PT OFF TABLE AND TRANSPORTING TO POST PROC AREA IN STABLE CONDITION
--- NOTE | 2018-09-02 13:29 | P.PCN_ITS ---
Procedures Date/Time Date of procedure: 09/02/18 Time of procedure: 13:28 General Procedure description: POST OP DIAGNOSIS 1. FACET ARTHROPATHY PROCEDURES 1. Right L4, L5 and S1 MB BLOCKS PHYSICIAN: DO CLAIRE Bain Heather is referred by Dr. Murray for treatment of Right Axial LBP. DESCRIPTION OF PROCEDURE Fluoroscopically guided, contrast-controlled right L4, L5 and S1 medial branch blocks with 0.5cc of 0.5% Marcaine. Following denial of allergy and review of potential side effects and complications, including, but not necessarily limited to, infection, allergic reaction, local tissue breakdown, nerve injury, paralysis, stroke and possible , the patient indicated that the patient understood and agreed to proceed. An informed consent document was signed by the patient, witnessed by a nurse, and placed in the patient's chart. After review of previous anaesthesic history and IV conscious sedation the patient was deemed safe to proceed with todays procedure with IV conscious sedation as ASA class II designation. Safety time-out was performed to confirm patient ID, procedure to be performed and site of procedure. IV sedation was accomplished with a combination of 2mg of Versed and 50mcg of Fentanyl was administered by the RN after DO order, titrated to patient comfort during the course of the procedure while the patient remained responsive to all verbal commands In the prone position, following sterile prep and drape of the lumbar region, the right L4, L5 and S1 anatomical location of the medial branch of the dorsal ramus was identified fluoroscopically. Subsequently an anesthetic skin wheal using 1% lidocaine solution was initiated at each of the anatomical spots. Subsequently then a 22-gauge 3.5-inch spinal needle was atraumatically introduced and advanced under fluoroscopic guidance at each of the corresponding sites at the right L4, L5 and S1 MB. After negative aspiration, 0.2 cc of Isovue 200 was injected, confirming placement without vascular or intrathecal uptake. Subsequently then 0.5 cc of 0.5% Marcaine solution was injected at each of the corresponding sites at the right L4, L5 and S1 medial branch locations. The patient tolerated the procedure well without signs or symptoms of complications. The procedure tolerated the procedure well without signs or symptoms of complications prior to transfer to the recovery area continued monitoring without incident. Post-procedure, the patient was monitored initiating provocative activities to measure the amount of relief from block of the facetogenic pain. The patient reported a VAS of 7 prior to the procedure and a post-procedure VAS of 1. It has been a pleasure to assist in the diagnostic and therapeutic care of your patient. Total Fluoroscopy Time: 24.8 seconds Total Conscious Sedation Time: 24min POST OP INSTRUCTIONS The patient was provided with a Pain Log to complete over the next several hours and subsequent days prior to the patient's follow up with the ordering physician. 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 The patient is aware, was provided, once again, with a Pain Log and will follow up with the referring physician for review and clinical correlation Wilner Tee DO
--- NOTE | 2018-09-02 13:39 | PC.NURSE ---
Pt returned from procedure at 1330, awake and alert although she says I feel slow in my head. Pt able to transfer self from w/c to chair with standby assist. Resumed monitoring from Maureen NATION.
== END 2018-09-02 14:10 ==
LOC: RAD 12:29
PROVIDERS: PCP Family Medicine; Visit Provider Physical Medicine & Rehabilitation
DX: M47.817 Spondylosis without myelopathy or radiculopathy, lumbosacral region (principal); M47.816 Spondylosis without myelopathy or radiculopathy, lumbar region
CPT/HCPCS: 64493; 64494; 99152; J0702; J2250; J3010

== ENCOUNTER 2018-09-17 11:43 | Emergency (ER) | payer MEDICARE, OTHER, SELFPAY ==
[2018-09-17] VITALS (7 sets, daily range): BP systolic 118–147; BP diastolic 45–73; PULSE 56–67; RESP 14–19; TEMP 37; O2SAT 97–100
--- NOTE | 2018-09-17 11:49 | ED_ITS ---
HPI - Dizziness General Chief Complaint: Syncope Stated Complaint: Dizzy Time Seen by Provider: 09/17/18 11:47 Source: patient and EMS Mode of arrival: EMS Limitations: no limitations History of Present Illness HPI Narrative: Patient is a 73-year-old female brought in by EMS after they were called because the patient was working out in her front lawn and became dizzy. She did state that she has not been drinking all that much over the past couple days. It appears that she went to stand up and became lightheaded. She did fall forward hitting her head on the ground from a kneeling position. Did not lose consciousness. EMS started IV fluids after the took vital signs in the field and found the when the patient stood up her heart rate went greater than 110 and her blood pressure dropped to a systolic less than 90. At the time arrival here in the emergency department patient states that she felt ?dry? and felt tired. Related Data Home Medications Medication Instructions Recorded Confirmed ASPIRIN (Aspir-Low) 81 mg PO Q DAY #0 03/20/11 08/20/18 uerakxzb-nmko-RJ-calcium-mins 1 tab PO Q DAY #0 03/20/11 08/20/18 [Thera M Plus (ferrous fumarat)] naproxen sodium PO 11/07/17 08/20/18 ferrous sulfate 325 mg (65 mg 325 mg PO DAILY tab 03/19/18 08/20/18 iron) tablet Previous Rx's Medication Instructions Recorded amlodipine 5 mg tablet 5 mg PO QDAY #90 tab 02/21/18 citalopram 20 mg tablet 20 mg PO QDAY #60 tab 02/21/18 levothyroxine 50 mcg tablet 50 mcg PO QDAY #90 tab 02/21/18 rosuvastatin 5 mg tablet 5 mg PO QDAY #30 tab 02/21/18 lisinopril 10 mg tablet 10 mg PO DAILY #90 tab 03/26/18 tramadol 50 mg PO Q8H PRN #60 tab 05/13/18 Allergies Allergy/AdvReac Type Severity Reaction Status Date / Time hydrocodone [HYDROCODONE] Allergy Intermediate NAUSEA / Verified 09/02/18 12:56 VOMITING Sulfa (Sulfonamide Allergy Mild Hives Verified 09/02/18 12:56 Antibiotics) [SULFA (SULFONAMIDE ANTIBIOTICS)] morphine [MORPHINE] AdvReac Mild Vomiting Verified 09/02/18 12:56 Review of Systems Constitutional Denies fever(s), Denies frequent falls and Denies headache(s) Eyes Denies change in vision and Denies diplopia ENT Ears, Nose, Mouth, and Throat: Denies vertigo, Reports dizziness, Denies hea dache(s) and Reports disequilibrium Cardiovascular Denies chest pain, Denies edema, Denies leg edema, Denies palpitations and Denies dyspnea Respiratory Denies cough and Denies dyspnea Gastrointestinal Gastrointestinal: Denies abdominal pain, Reports nausea and Denies vomiting Musculoskeletal Denies myalgias and Denies arthralgias Integumentary/Breasts Denies lesions and Denies rash Neurologic Denies confusion, Denies vertigo, Reports dizziness, Denies frequent falls, Denies headache(s) and Reports disequilibrium Psychiatric Denies confusion Endocrine Denies palpitations Hematologic/Lymphatic Denies easy bleeding and Denies easy bruising Comments: Not on anticoagulation [facility], [facility] Medical History Headache (Chronic) Hypertension (Chronic ~1999) Acne (Resolved) Cataracts, bilateral (Resolved ~2013) Chicken pox (Resolved ~1948) Fractures (Resolved ~1977) Measles (Resolved ~1953) Mumps (Resolved ~1953) Social History Smoking Status: Never smoker Exam Initial Vital Signs Initial Vital Signs: Vital Signs Temperature 98.6 F 09/17/18 11:46 Pulse Rate 67 09/17/18 11:46 Respiratory Rate 14 09/17/18 11:46 Blood Pressure 147/59 H 09/17/18 11:46 Pulse Oximetry 100 09/17/18 11:46 Const General: cooperative, comfortable, well developed, well groomed and No acute distress Orientation: alert, awake and oriented x3 HENMT Head: normal to inspection and normocephalic Mouth: oral mucosae normal and No moist mucous membranes (Dry) Resp Effort & Inspection: normal respiratory effort Auscultation: clear to auscultation bilaterally Cardio Rate: regular rate Rhythm: regular rhythm Pulses: radial pulses present GI Inspection: non-distended Palpation: soft Back/Spine/Pelvis Cervical Spine: No collar present, No cervical spinal tenderness and No step off deformity Skin Lesions: no lesions Rashes: no rashes Neuro General: alert, awake and oriented x3 Cognition: normal cognition Speech: speech normal Motor: muscle tone normal throughout Extrem General: normal to inspection and capillary refill normal Psych Appearance: grossly normal and well kempt Scores GCS David coma scale eye opening: Spontaneous David coma scale verbal response: Orientated Nexus Score for C-Spine Focal Neurologic deficit present: No Midline spinal tenderness present: No Altered level of conciousness present: No Intoxication present: No Distracting Injury Present: No Nexus Criteria for C-spine: 0 Course Orders Ordered: ED Orders 09/17/18 11:47 EKG-12 Lead Stat 09/17/18 11:58 Basic Metabolic Panel Stat Complete Blood Count AUTO DIFF Stat Ethanol (ETOH) Stat Thyroid Stimulating Hormone Stat Troponin I Stat Discontinued Medications Sodium Chloride (Normal Saline 0.9%) 1,000 mls @ 1,000 mls/hr IV BOLUS ONE Stop: 09/17/18 12:46 Last Admin: 09/17/18 12:24 Dose: Not Given Vital Signs - 8 hr 09/17/18 11:46 09/17/18 12:00 09/17/18 12:04 Temperature 98.6 F Pulse Rate 67 57 L Pulse Rate [Orthostatic Lying] 58 L Pulse Rate [Orthostatic Sitting] 56 L Pulse Rate [Orthostatic Standing] 63 Respiratory Rate 14 15 Blood Pressure 147/59 H Blood Pressure [Orthostatic Lying] 126/56 L Blood Pressure [Orthostatic Sitting] 140/60 Blood Pressure [Orthostatic Standing] 126/55 L Blood Pressure [Right Arm] 131/73 Pulse Oximetry 100 100 09/17/18 12:17 09/17/18 12:30 09/17/18 13:00 Temperature 98.6 F Pulse Rate 57 L 58 L 60 Pulse Rate [Orthostatic Lying] Pulse Rate [Orthostatic Sitting] Pulse Rate [Orthostatic Standing] Respiratory Rate 15 17 17 Blood Pressure 147/59 H Blood Pressure [Orthostatic Lying] Blood Pressure [Orthostatic Sitting] Blood Pressure [Orthostatic Standing] Blood Pressure [Right Arm] 147/59 H 145/45 H Pulse Oximetry 100 97 98 MDM - Dizziness Lab Data Attestation: I reviewed the patient's lab results. Result diagrams: 09/17/18 11:58 09/17/18 11:58 Lab Results 09/17/18 09/17/18 09/17/18 Range/Units 11:58 11:58 11:58 WBC 8.6 (4.5-11.0) X10^3/uL RBC 3.44 L (4.0-5.2) X10^6/uL Hgb 11.0 L (12.0-16.0) g/dL Hct 32.1 L (36-46) % MCV 93.4 (80-100) fL MCH 31.9 (26-34) PG MCHC 34.2 (30-36) % RDW 12.8 (11.6-14.8) % Plt Count 189 (150-400) X10^3/uL Neut % (Auto) 65.9 (50-75) % Lymph % (Auto) 25.9 (25-40) % Josephine % (Auto) 6.6 (3-14) % Eos % (Auto) 0.9 L (2-4) % Baso % (Auto) 0.7 (0-2) % Neut # (Auto) 5600 (7120-5983) /uL Lymph # (Auto) 2200 (4845-6312) /uL Josephine # (Auto) 600 (0-900) /uL Eos # (Auto) 100 (0-450) /uL Baso # (Auto) 100 (0-100) /uL Sodium 136 L (137-145) mmol/L Potassium 4.8 (3.4-5.1) mmol/L Chloride 107 (98-107) mmol/L Carbon Dioxide 23 (22-32) mmol/L BUN 35 H (7-17) mg/dL Creatinine 1.30 H (0.52-1.04) mg/dL Estimated GFR 40.2 L (>60) mL/min BUN/Creatinine Ratio 26.9 H (6-22) Glucose 87 (80-110) mg/dL Calcium 11.0 H (8.4-10.2) mg/dL Troponin I < 0.012 (0.01-0.034) ng/mL TSH 0.36 L (0.47-4.68) uIU/mL Ethyl Alcohol < 10 mg/dL Urine Dip Bedside Urine Glucose Negative Bedside Urine Bilirubin - Negative Bedside Urine Ketone - Negative Urine Specific [place] 1.025 Bedside Urine Occult Blood - Negative Bedside Urine pH 6.0 Bedside Urine Protein - Negative Bedside Urine Urobilinogen - Negative Bedside Urine Nitrite - Negative Bedside Urine Leukocytes - Negative Esterase ECG Data Attestation: I personally reviewed and interpreted this ECG as follows: Prior ECG tracings: not available for review Interpretation: Sinus rhythm Ventricular rate is 66 Normal axis Normal QRS Normal QTC No ST T wave changes MDM Narrative Medical decision making narrative: Patient is no longer orthostatic here in the ER. Does appear that she was orthostatic by EMS. Patient also states that she was very symptomatic when they stood her up. There is no injuries on her exam from the event. Her neck was cleared by nexus criteria. She is tolerating oral intake. She ambulated to the bathroom without any problems. Labs were unremarkable. Low suspicion for CVA or TIA. Patient also states that she felt very hot at the time of this event. I do suspect that she has been dehydrated and potentially overheated when she was working out in the yard it is a warm day outside. She also states that her urine has been less than normal recently. Will hold on further workup for now. Patient was given return precautions follow-up instructions. She expressed understanding and agreement with plan. Discharge Plan Departure Patient Disposition: Home Clinical Impression: Pre-syncope, Dehydration Instructions: Dehydration Activity Restrictions/Additional Instructions: I recommend you continue all of your medications as directed. Be sure to increase your fluid intake like we discussed. Return to the emergency department for any new or worsening symptoms Prescriptions: No Action ASPIRIN (Aspir-Low) 81 mg PO Q DAY Qty: 0 RF: 0 uwermdkq-qrqx-GQ-calcium-mins [Thera M Plus (ferrous fumarat)] 1 EACH tablet 1 tab PO Q DAY Qty: 0 RF: 0 lisinopril 10 mg tablet 10 mg PO DAILY Qty: 90 RF: 3 citalopram [Celexa] 20 mg tablet 20 mg PO QDAY Qty: 60 RF: 5 amlodipine [Norvasc] 5 mg tablet 5 mg PO QDAY Qty: 90 RF: 3 levothyroxine [Synthroid] 50 mcg tablet 50 mcg PO QDAY Qty: 90 RF: 3 rosuvastatin [Crestor] 5 mg tablet 5 mg PO QDAY Qty: 30 RF: 5 tramadol 50 mg tablet 50 mg PO Q8H PRN (Reason: pain) Qty: 60 RF: 1 naproxen sodium PO RF: 0 ferrous sulfate 325 mg (65 mg iron) tablet 325 mg PO DAILY RF: 0 Referrals: Gume Murray MD [Primary Care Provider] -
[2018-09-17 12:12] LABS: Add Manual Diff / Slide Review NO; Basophils Absolute Auto 100 /uL (0-100); Basophils Percent Auto 0.7 % (0-2); Eosinophils Absolute Auto 100 /uL (0-450); Eosinophils Percent Auto 0.9 % (2-4); Hematocrit 32.1 % (36-46); Lymphocytes Absolute Auto 2200 /uL (1100-4500); Lymphocytes Percent Auto 25.9 % (25-40); Mean Corpuscular HGB Conc 34.2 % (30-36); Mean Corpuscular Hemoglobin 31.9 PG (26-34); Mean Corpuscular Volume 93.4 fL (80-100); Monocytes Absolute Auto 600 /uL (0-900); Monocytes Percent Auto 6.6 % (3-14); Neutrophils Absolute Auto 5600 /uL (1500-7000); Neutrophils Percent Auto 65.9 % (50-75); Platelet Count 189 X10^3/uL (150-400); Red Blood Cell Count 3.44 X10^6/uL (4.0-5.2); Red Cell Distribution Width 12.8 % (11.6-14.8); White Blood Cell Count 8.6 X10^3/uL (4.5-11.0)
[2018-09-17 12:20] LABS: BUN Creatinine Ratio 26.9 (6-22); Blood Urea Nitrogen 35 mg/dL (7-17); Carbon Dioxide 23 mmol/L (22-32); Chloride 107 mmol/L (98-107); Estimated Glomerular Filt Rate 40.2 mL/min (>60); Ethanol (ETOH) < 10 mg/dL; Glucose 87 mg/dL (80-110); HEMOLYSIS < 15 (0-50); Potassium 4.8 mmol/L (3.4-5.1); Sodium 136 mmol/L (137-145)
[2018-09-17 12:32] LABS: Troponin I < 0.012 ng/mL (0.01-0.034)
[2018-09-17 13:11] LABS: Thyroid Stimulating Hormone 0.36 uIU/mL (0.47-4.68)
== END 2018-09-17 13:50 | disposition home or self-care (01) ==
PROVIDERS: Emergency Provider Emergency Medicine; PCP Family Medicine
DX: R55 Syncope and collapse (principal); E86.0 Dehydration
CPT/HCPCS: 36415; 80048; 80320; 81003; 84443; 84484; 85025; 93005; 99283; 99284

== ENCOUNTER 2018-09-28 10:59 | Emergency (ER) | payer MEDICARE, OTHER, SELFPAY ==
[2018-09-28 11:11] VITALS: BP 169/65; PULSE 60; RESP 16; TEMP 37; O2SAT 96; BMI 25.7
--- NOTE | 2018-09-28 11:36 | DI.US.S_ITS ---
PROCEDURE: US PERIPH VENOUS UP EXTREM LT INDICATIONS: PAIN, EDEMA TECHNIQUE: Real-time imaging, as well as color and pulse Doppler interrogation, was performed of the left upper extremity deep veins from the inferior neck to the antecubital fossa. COMPARISON: None. FINDINGS: Thrombus within the left brachial vein is present IMPRESSION: Left upper extremity brachial DVT. Dictated by: Isabella Ta M.D. on 09/28/2018 at 12:03 Approved by: Isabella Ta M.D. on 09/28/2018 at 12:03
--- NOTE | 2018-09-28 11:52 | ED_ITS ---
HPI - Extremity Problem <Sherri Wolfe, SUPERVISOR SOUND TECHNICIAN-BC - Last Filed: 09/28/18 16:13> General Chief complaint: Extremity Problem,Nontraumatic Stated complaint: Thinks she has blood clot lt arm/elbow Time Seen by Provider: 09/28/18 11:40 Source: patient Mode of arrival: ambulatory Limitations: no limitations History of Present Illness HPI Narrative: The patient is a 73-year-old female with history of blood clots who presents with her friend for chief complaint of possible DVT in her left arm. She noticed a red swollen area while showering this morning. She denies any fevers nausea vomiting diarrhea chest pain or shortness of breath. She states her previous clot was several years ago, she was placed on Coumadin and then Xarelto. She states that she has poor circulation or lower legs, but she is not concerned about her lower legs today. She denies any recent surgeries, prolonged sitting, recent travel or flights. She went to the walk-in clinic, and was referred to the emergency department today. Related Data Home Medications Medication Instructions Recorded Confirmed ASPIRIN (Aspir-Low) 81 mg PO Q DAY #0 03/20/11 08/20/18 jvduhqrl-xwca-IK-calcium-mins 1 tab PO Q DAY #0 03/20/11 08/20/18 [Thera M Plus (ferrous fumarat)] naproxen sodium PO 11/07/17 08/20/18 ferrous sulfate 325 mg (65 mg 325 mg PO DAILY tab 03/19/18 08/20/18 iron) tablet Previous Rx's Medication Instructions Recorded amlodipine 5 mg tablet 5 mg PO QDAY #90 tab 02/21/18 citalopram 20 mg tablet 20 mg PO QDAY #60 tab 02/21/18 levothyroxine 50 mcg tablet 50 mcg PO QDAY #90 tab 02/21/18 rosuvastatin 5 mg tablet 5 mg PO QDAY #30 tab 02/21/18 lisinopril 10 mg tablet 10 mg PO DAILY #90 tab 03/26/18 tramadol 50 mg PO Q8H PRN #60 tab 05/13/18 rivaroxaban [Xarelto] 15 mg PO BID 21 Days #42 tab 09/28/18 Allergies Allergy/AdvReac Type Severity Reaction Status Date / Time hydrocodone [HYDROCODONE] Allergy Intermediate NAUSEA / Verified 09/28/18 11:11 VOMITING Sulfa (Sulfonamide Allergy Mild Hives Verified 09/28/18 11:11 Antibiotics) [SULFA (SULFONAMIDE ANTIBIOTICS)] morphine [MORPHINE] AdvReac Mild Vomiting Verified 09/28/18 11:11 Review of Systems <KATHRYN Gillette - Last Filed: 09/28/18 16:13> Review of Systems GENERAL: Denies chills, fatigue, malaise, fever, sweats. HEENT: Denies sinus pain, ear pain, sore throat, difficulty swallowing, dizziness. RESPIRATORY: Denies dyspnea, cough, wheezing, hemoptysis, sputum. CARDIOVASCULAR: Denies chest pain, palpitations, orthopnea, edema, GASTROINTESTINAL: Denies nausea, vomiting, abdominal pain, diarrhea, constipation, melena. : Denies dysuria, frequency, incontinence, hematuria, urinary retention. MUSCULOSKELETAL: denies weakness, joint pain, or bony pain SKIN: See HPI NEUROLOGIC: Denies weakness, headache, numbness, change in speech, confusion, seizures, incoordination. PSYCHIATRIC: No concerning psychosocial issues. 12 point review of systems is negative except for those stated above PFSH <KATHRYN Gillette - Last Filed: 09/28/18 16:13> Medical History Headache (Chronic) Hypertension (Chronic ~1999) Acne (Resolved) Cataracts, bilateral (Resolved ~2013) Chicken pox (Resolved ~1948) Fractures (Resolved ~1977) Measles (Resolved ~1953) Mumps (Resolved ~1953) Surgical History Anesthesia (Resolved) History of cataract removal with insertion of prosthetic lens (~2013) Status post appendectomy Status post dilation and curettage Status post tonsillectomy and adenoidectomy Status post tubal ligation Family History Father Cancer Grandfather Heart disease Grandmother Stroke Mother Cancer Brother No problems noted. Grandfather No problems noted. Grandmother No problems noted. Social History Smoking Status: Never smoker Family History Father Cancer Grandfather Heart disease Grandmother Stroke Mother Cancer Brother No problems noted. Grandfather No problems noted. Grandmother No problems noted. Social History Smoking Status: Never smoker Exam <KATHRYN Gillette - Last Filed: 09/28/18 16:13> Narrative Exam Narrative: GENERAL: This is a well-nourished, well-developed patient, no acute distress HEAD: Atraumatic. Normocephalic. No temporal or scalp tenderness. EYES: Pupils equal round and reactive. Extraocular motions intact. No scleral icterus. No injection or drainage. ENT: Nose without bleeding, purulent drainage or septal hematoma. Throat without erythema, tonsillar hypertrophy or exudate. Uvula midline. Airway patent. NECK: Trachea midline. No JVD or lymphadenopathy. Supple, nontender, no meningeal signs. CARDIOVASCULAR: Regular rate and rhythm RESPIRATORY: Clear to auscultation. Breath sounds equal bilaterally. No wheezes, rales, or rhonchi. No cough. No increased respiratory effort. No accessory muscle use. GASTROINTESTINAL: Abdomen soft, non-tender, nondistended. No hepato- splenomegaly, or palpable masses. No guarding. EXTREMITIES: Full range of motion noted left arm. Positive radial pulse left hand. BACK: Nontender without deformity or crepitance. No flank tenderness. NEURO: AOx3. SKIN: Four by 3 cm erythema and warmth noted just distal to left AC Initial Vital Signs Initial Vital Signs: Vital Signs Temperature 98.6 F 09/28/18 11:11 Pulse Rate 60 09/28/18 11:11 Respiratory Rate 16 09/28/18 11:11 Blood Pressure 169/65 H 09/28/18 11:11 Pulse Oximetry 96 09/28/18 11:11 <Alejandrina Love MD - Last Filed: 09/28/18 19:54> Initial Vital Signs Initial Vital Signs: Vital Signs Temperature 98.6 F 09/28/18 11:11 Pulse Rate 60 09/28/18 11:11 Respiratory Rate 16 09/28/18 11:11 Blood Pressure 169/65 H 09/28/18 11:11 Pulse Oximetry 96 09/28/18 11:11 Course <KATHRYN Gillette - Last Filed: 09/28/18 16:13> Orders Ordered: ED Orders 09/28/18 11:36 US periph venous up extrem lt Stat 09/28/18 13:20 Complete Blood Count AUTO DIFF Stat Comprehensive Metabolic Panel Stat Partial Thromboplastin Time Stat Prothrombin Time INR Stat Vital Signs - 8 hr 09/28/18 13:14 09/28/18 14:42 Pulse Rate 53 L 53 L Respiratory Rate 15 15 Blood Pressure 153/57 H Blood Pressure [Right Arm] 163/75 H Pulse Oximetry 100 100 <Alejandrina Love MD - Last Filed: 09/28/18 19:54> Orders Ordered: ED Orders 09/28/18 11:36 US periph venous up extrem lt Stat 09/28/18 13:20 Complete Blood Count AUTO DIFF Stat Comprehensive Metabolic Panel Stat Partial Thromboplastin Time Stat Prothrombin Time INR Stat Vital Signs - 8 hr 09/28/18 13:14 09/28/18 14:42 Pulse Rate 53 L 53 L Respiratory Rate 15 15 Blood Pressure 153/57 H Blood Pressure [Right Arm] 163/75 H Pulse Oximetry 100 100 MDM - Extremity (Nontraumatic) <KATHRYN Gillette - Last Filed: 09/28/18 16:13> Lab Data Result diagrams: 09/28/18 13:20 09/28/18 13:20 Lab Results 09/28/18 09/28/18 09/28/18 Range/Units 13:20 13:20 13:20 WBC 8.4 (4.5-11.0) X10^3/uL RBC 4.16 (4.0-5.2) X10^6/uL Hgb 13.1 (12.0-16.0) g/dL Hct 39.2 (36-46) % MCV 94.3 (80-100) fL MCH 31.5 (26-34) PG MCHC 33.4 (30-36) % RDW 12.6 (11.6-14.8) % Plt Count 225 (150-400) X10^3/uL Neut % (Auto) 63.5 (50-75) % Lymph % (Auto) 27.5 (25-40) % [place] % (Auto) 6.8 (3-14) % Eos % (Auto) 1.4 L (2-4) % Baso % (Auto) 0.8 (0-2) % Neut # (Auto) 5300 (3289-1417) /uL Lymph # (Auto) 2300 (3578-5748) /uL [place] # (Auto) 600 (0-900) /uL Eos # (Auto) 100 (0-450) /uL Baso # (Auto) 100 (0-100) /uL PT 11.6 (10.1-12.7) SECONDS INR 1.0 (0.9-1.3) APTT (26.4-36.2) SECONDS Sodium 140 (137-145) mmol/L Potassium 5.0 (3.4-5.1) mmol/L Chloride 106 (98-107) mmol/L Carbon Dioxide 28 (22-32) mmol/L BUN 35 H (7-17) mg/dL Creatinine 1.40 H (0.52-1.04) mg/dL Estimated GFR 36.9 L (>60) mL/min BUN/Creatinine Ratio 25.0 H (6-22) Glucose 98 (80-110) mg/dL Calcium 12.1 H (8.4-10.2) mg/dL Total Bilirubin 0.6 (0.2-1.3) mg/dL AST 19 (14-36) IU/L ALT 16 (9-52) IU/L Alkaline Phosphatase 88 (38-126) U/L Total Protein 7.8 (6.3-8.2) g/dL Albumin 4.4 (3.5-5.0) g/dL Globulin 3.4 (1.7-4.1) g/dL Albumin/Globulin Ratio 1.3 (1.0-2.8) 09/28/18 Range/Units 13:20 WBC (4.5-11.0) X10^3/uL RBC (4.0-5.2) X10^6/uL Hgb (12.0-16.0) g/dL Hct (36-46) % MCV (80-100) fL MCH (26-34) PG MCHC (30-36) % RDW (11.6-14.8) % Plt Count (150-400) X10^3/uL Neut % (Auto) (50-75) % Lymph % (Auto) (25-40) % [place] % (Auto) (3-14) % Eos % (Auto) (2-4) % Baso % (Auto) (0-2) % Neut # (Auto) (2343-1692) /uL Lymph # (Auto) (4224-7860) /uL [place] # (Auto) (0-900) /uL Eos # (Auto) (0-450) /uL Baso # (Auto) (0-100) /uL PT (10.1-12.7) SECONDS INR (0.9-1.3) APTT 28 (26.4-36.2) SECONDS Sodium (137-145) mmol/L Potassium (3.4-5.1) mmol/L Chloride (98-107) mmol/L Carbon Dioxide (22-32) mmol/L BUN (7-17) mg/dL Creatinine (0.52-1.04) mg/dL Estimated GFR (>60) mL/min BUN/Creatinine Ratio (6-22) Glucose (80-110) mg/dL Calcium (8.4-10.2) mg/dL Total Bilirubin (0.2-1.3) mg/dL AST (14-36) IU/L ALT (9-52) IU/L Alkaline Phosphatase (38-126) U/L Total Protein (6.3-8.2) g/dL Albumin (3.5-5.0) g/dL Globulin (1.7-4.1) g/dL Albumin/Globulin Ratio (1.0-2.8) Imaging Data Venous US: Radiologist's impression: [address] [address] Ultrasound Report Signed Patient: Heather Walker JMR#: [id number] : 5Acct:[id number] Age/Sex: 73 / FDate of Service: 09/28/18 Loc: ED Accession Number: [id number] Procedure: US periph venous up extrem lt Ordering [facility] PROCEDURE: US PERIPH VENOUS UP EXTREM LT INDICATIONS: PAIN, EDEMA TECHNIQUE: Real-time imaging, as well as color and pulse Doppler interrogation, was performed of the left upper extremity deep veins from the inferior neck to the antecubital fossa. COMPARISON: None. FINDINGS: Thrombus within the left brachial vein is present IMPRESSION: Left upper extremity brachial DVT. Dictated by: Isabella Ta M.D. on 09/28/2018 at 12:03 Approved by: Isabella Ta M.D. on 09/28/2018 at 12:03 [facility] Narrative Medical decision making narrative: THE PATIENT IS A 73-YEAR-OLD FEMALE WHO PRESENTS WITH CONCERN OF A DVT IN HER LEFT ARM. Ultrasound shows a DVT. She does not have any chest pain or shortness of breath. I will start her on Xarelto 15 mg b.i.d. for 3 weeks. She has been on Xarelto before and tolerated it well. I discussed at length follow up with her PCP, who she will call tomorrow. Baseline labs were obtained. Patient has no questions or concerns upon discharge. Encourage follow-up PCP as well as coming back to the ER for any acute concerns such as chest pain or shortness of breath. No questions or concerns upon discharge. Case discussed with Dr Love <Alejandrina Love MD - Last Filed: 09/28/18 19:54> Lab Data Lab Results 09/28/18 09/28/18 09/28/18 Range/Units 13:20 13:20 13:20 WBC 8.4 (4.5-11.0) X10^3/uL RBC 4.16 (4.0-5.2) X10^6/uL Hgb 13.1 (12.0-16.0) g/dL Hct 39.2 (36-46) % MCV 94.3 (80-100) fL MCH 31.5 (26-34) PG MCHC 33.4 (30-36) % RDW 12.6 (11.6-14.8) % Plt Count 225 (150-400) X10^3/uL Neut % (Auto) 63.5 (50-75) % Lymph % (Auto) 27.5 (25-40) % [place] % (Auto) 6.8 (3-14) % Eos % (Auto) 1.4 L (2-4) % Baso % (Auto) 0.8 (0-2) % Neut # (Auto) 5300 (4522-4662) /uL Lymph # (Auto) 2300 (4207-9494) /uL [place] # (Auto) 600 (0-900) /uL Eos # (Auto) 100 (0-450) /uL Baso # (Auto) 100 (0-100) /uL PT 11.6 (10.1-12.7) SECONDS INR 1.0 (0.9-1.3) APTT (26.4-36.2) SECONDS Sodium 140 (137-145) mmol/L Potassium 5.0 (3.4-5.1) mmol/L Chloride 106 (98-107) mmol/L Carbon Dioxide 28 (22-32) mmol/L BUN 35 H (7-17) mg/dL Creatinine 1.40 H (0.52-1.04) mg/dL Estimated GFR 36.9 L (>60) mL/min BUN/Creatinine Ratio 25.0 H (6-22) Glucose 98 (80-110) mg/dL Calcium 12.1 H (8.4-10.2) mg/dL Total Bilirubin 0.6 (0.2-1.3) mg/dL AST 19 (14-36) IU/L ALT 16 (9-52) IU/L Alkaline Phosphatase 88 (38-126) U/L Total Protein 7.8 (6.3-8.2) g/dL Albumin 4.4 (3.5-5.0) g/dL Globulin 3.4 (1.7-4.1) g/dL Albumin/Globulin Ratio 1.3 (1.0-2.8) 09/28/18 Range/Units 13:20 WBC (4.5-11.0) X10^3/uL RBC (4.0-5.2) X10^6/uL Hgb (12.0-16.0) g/dL Hct (36-46) % MCV (80-100) fL MCH (26-34) PG MCHC (30-36) % RDW (11.6-14.8) % Plt Count (150-400) X10^3/uL Neut % (Auto) (50-75) % Lymph % (Auto) (25-40) % [place] % (Auto) (3-14) % Eos % (Auto) (2-4) % Baso % (Auto) (0-2) % Neut # (Auto) (1664-6059) /uL Lymph # (Auto) (7667-4282) /uL [place] # (Auto) (0-900) /uL Eos # (Auto) (0-450) /uL Baso # (Auto) (0-100) /uL PT (10.1-12.7) SECONDS INR (0.9-1.3) APTT 28 (26.4-36.2) SECONDS Sodium (137-145) mmol/L Potassium (3.4-5.1) mmol/L Chloride (98-107) mmol/L Carbon Dioxide (22-32) mmol/L BUN (7-17) mg/dL Creatinine (0.52-1.04) mg/dL Estimated GFR (>60) mL/min BUN/Creatinine Ratio (6-22) Glucose (80-110) mg/dL Calcium (8.4-10.2) mg/dL Total Bilirubin (0.2-1.3) mg/dL AST (14-36) IU/L ALT (9-52) IU/L Alkaline Phosphatase (38-126) U/L Total Protein (6.3-8.2) g/dL Albumin (3.5-5.0) g/dL Globulin (1.7-4.1) g/dL Albumin/Globulin Ratio (1.0-2.8) Discharge Plan Departure Patient Disposition: Home Clinical Impression: DVT (deep venous thrombosis) Qualifiers: DVT location: upper extremity Affected thrombotic vein of extremity: brachial Chronicity: acute Laterality: left Qualified Code(s): I82.622 - Acute embolism and thrombosis of deep veins of left upper extremity Discharge Date/Time: 09/28/18 14:43 Interventions: ED Discharge Assessment Last Done: 09/28/18 14:42 Instructions: DI for Deep Vein Thrombosis Activity Restrictions/Additional Instructions: Thank you for trusting us with your care today. I have given you a prescription for Xarelto for your DVT. I have given you a prescription for 15 mg twice a day for 21 days. Please follow up with Dr. Murray as soon as possible. Please monitor for increased bleeding. Be aware you are at higher risk of bleeding when taking blood thinners, including GI bleeding or bleeding resulting from trauma. Please come back to the emergency department for any acute concerns such as chest pain, shortness of breath etc Prescriptions: New Xarelto 15 mg tablet 15 mg PO BID 21 Days Qty: 42 RF: 0 No Action ASPIRIN (Aspir-Low) 81 mg PO Q DAY Qty: 0 RF: 0 fwoyiqyi-naku-IF-calcium-mins [Thera M Plus (ferrous fumarat)] 1 EACH tablet 1 tab PO Q DAY Qty: 0 RF: 0 lisinopril 10 mg tablet 10 mg PO DAILY Qty: 90 RF: 3 citalopram [Celexa] 20 mg tablet 20 mg PO QDAY Qty: 60 RF: 5 amlodipine [Norvasc] 5 mg tablet 5 mg PO QDAY Qty: 90 RF: 3 levothyroxine [Synthroid] 50 mcg tablet 50 mcg PO QDAY Qty: 90 RF: 3 rosuvastatin [Crestor] 5 mg tablet 5 mg PO QDAY Qty: 30 RF: 5 tramadol 50 mg tablet 50 mg PO Q8H PRN (Reason: pain) Qty: 60 RF: 1 naproxen sodium PO RF: 0 ferrous sulfate 325 mg (65 mg iron) tablet 325 mg PO DAILY RF: 0 Referrals: Gume Murray MD [Primary Care Provider] -
[2018-09-28 13:14] VITALS: BP 163/75; PULSE 53; RESP 15; O2SAT 100
[2018-09-28 13:27] LABS: Add Manual Diff / Slide Review NO; Basophils Absolute Auto 100 /uL (0-100); Basophils Percent Auto 0.8 % (0-2); Eosinophils Absolute Auto 100 /uL (0-450); Eosinophils Percent Auto 1.4 % (2-4); Hematocrit 39.2 % (36-46); Hemoglobin 13.1 g/dL (12.0-16.0); Lymphocytes Absolute Auto 2300 /uL (1100-4500); Lymphocytes Percent Auto 27.5 % (25-40); Mean Corpuscular HGB Conc 33.4 % (30-36); Mean Corpuscular Hemoglobin 31.5 PG (26-34); Mean Corpuscular Volume 94.3 fL (80-100); Monocytes Absolute Auto 600 /uL (0-900); Monocytes Percent Auto 6.8 % (3-14); Neutrophils Absolute Auto 5300 /uL (1500-7000); Neutrophils Percent Auto 63.5 % (50-75); Platelet Count 225 X10^3/uL (150-400); Red Blood Cell Count 4.16 X10^6/uL (4.0-5.2); Red Cell Distribution Width 12.6 % (11.6-14.8); White Blood Cell Count 8.4 X10^3/uL (4.5-11.0)
[2018-09-28 13:31] LABS: Prothrombin Time 11.6 SECONDS (10.1-12.7)
[2018-09-28 13:34] LABS: PTT Partial Thromboplastin Tim 28 SECONDS (26.4-36.2)
[2018-09-28 13:35] LABS: Alanine Aminotransferase 16 IU/L (9-52); Albumin 4.4 g/dL (3.5-5.0); Albumin Globulin Ratio 1.3 (1.0-2.8); Alkaline Phosphatase 88 U/L (38-126); Aspartate Aminotransferase 19 IU/L (14-36); Bilirubin Total 0.6 mg/dL (0.2-1.3); Blood Urea Nitrogen 35 mg/dL (7-17); Calcium 12.1 mg/dL (8.4-10.2); Carbon Dioxide 28 mmol/L (22-32); Chloride 106 mmol/L (98-107); Estimated Glomerular Filt Rate 36.9 mL/min (>60); Globulin 3.4 g/dL (1.7-4.1); Glucose 98 mg/dL (80-110); HEMOLYSIS < 15 (0-50); Sodium 140 mmol/L (137-145); Total Protein 7.8 g/dL (6.3-8.2)
[2018-09-28 14:42] VITALS: BP 153/57; PULSE 53; RESP 15; O2SAT 100
== END 2018-09-28 14:43 | disposition home or self-care (01) ==
PROVIDERS: Emergency Provider Nurse Practitioner Family; PCP Family Medicine
DX: I82.622 Acute embolism and thrombosis of deep veins of left upper extremity (principal)
CPT/HCPCS: 36415; 80053; 85025; 85610; 85730; 93971; 99282; 99284

== ENCOUNTER 2018-12-06 19:35 | Emergency (ER) | payer MEDICARE, OTHER, SELFPAY ==
[2018-12-06 19:39] VITALS: BP 146/73; PULSE 68; RESP 16; TEMP 36.2; O2SAT 98; BMI 25.0
--- NOTE | 2018-12-06 19:58 | ED_ITS ---
HPI - Fall General Chief Complaint: Fall Stated Complaint: fall, hit face, left cheek wound Time Seen by Provider: 12/06/18 19:58 Source: patient Mode of arrival: ambulatory Limitations: no limitations History of Present Illness HPI Narrative: This is a 73-year-old female comes to the emergency department with complaint of fall. Patient states that she tripped and fell striking her left cheek on a espinal drawer patient states that she did get knocked out. She has a little bit of a headache she has a cut over her cheek. She has little bit of neck pain but states does not feel like it is in the bone. She denies any other symptoms or injuries. She is unsure if her tetanus is up-to-date. She denies any vision changes, no nausea or vomiting, no chest pain shortness of breath or other symptoms. She does take Eliquis daily. Related Data Home Medications Medication Instructions Recorded Confirmed ASPIRIN (Aspir-Low) 81 mg PO Q DAY #0 03/20/11 09/30/18 kyekqzrk-drsq-OD-calcium-mins 1 tab PO Q DAY #0 03/20/11 09/30/18 [Thera M Plus (ferrous fumarat)] naproxen sodium PO 11/07/17 09/30/18 ferrous sulfate 325 mg (65 mg 325 mg PO DAILY tab 03/19/18 09/30/18 iron) tablet Previous Rx's Medication Instructions Recorded amlodipine 5 mg tablet 5 mg PO QDAY #90 tab 02/21/18 citalopram 20 mg tablet 20 mg PO QDAY #60 tab 02/21/18 levothyroxine 50 mcg tablet 50 mcg PO QDAY #90 tab 02/21/18 rosuvastatin 5 mg tablet 5 mg PO QDAY #30 tab 02/21/18 lisinopril 10 mg tablet 10 mg PO DAILY #90 tab 03/26/18 tramadol 50 mg PO Q8H PRN #60 tab 05/13/18 methylprednisolone 4 mg tablets in See Rx Instructions PO PER PKG DIR 10/20/18 a dose pack #21 each apixaban 5 mg tablet 5 mg PO BID #60 tab 10/21/18 Allergies Allergy/AdvReac Type Severity Reaction Status Date / Time hydrocodone [HYDROCODONE] Allergy Intermediate NAUSEA / Verified 10/15/18 08:37 VOMITING Sulfa (Sulfonamide Allergy Mild Hives Verified 10/15/18 08:37 Antibiotics) [SULFA (SULFONAMIDE ANTIBIOTICS)] morphine [MORPHINE] AdvReac Mild Vomiting Verified 10/15/18 08:37 Review of Systems Review of Systems ROS Unobtainable: All systems reviewed & are unremarkable except as noted in HPI and below Exam Narrative Exam Narrative: GEN: Patient appears in mild distress. HEAD: Patient has laceration on left cheek, see below, no raccoon/Jarrell sign. NECK: Nontender, painless range of motion, trachea midline Negative Nexus criteria, there is no mid line tenderness, distracting injury, altered mental status, neuro deficit, recent EtOH. EYES: PERRLA, EOMI ENT: External inspection normal except for a small well aligned laceration over the left maxilla, patient laceration is 2.1cm in length, no subcutaneous tissue exposed, trachea is midline, TM's are normal no hemotypanum, Nares are clear, no septal hematoma, no dental or oral injury, airway is normal and with normal occlusion, No bony tenderness RESP: Chest is nontender and has symmetric movement, no ecchymosis, breath sounds are normal no crackles, wheezes or rales CVS: Heart sounds are normal, no murmur noted, No JVD. ABG/GI: Nontender, soft, normal bowel sounds, no distention, no organomegaly, pelvic rock is negative NEURO: Oriented AOx3, neuro is grossly intact, sensation and motor is normal all 4 extremities moving, cranial nerves II through XII are intact, GCS is 15 PSYCH: Normal mood and affect SKIN: Intact, warm and dry, no crepitus and without decubitus BACK: No CVA tenderness, no vertebral tenderness, no step-off's, no crepitus EXT: Atraumatic, hips are nontender, no pedal edema, normal color and temperature, normal range of motion of extremities with normal tendon exam, 2+ pulses in all four extremities Initial Vital Signs Initial Vital Signs: Vital Signs Temperature 97.1 F L 12/06/18 19:39 Pulse Rate 68 12/06/18 19:39 Respiratory Rate 16 12/06/18 19:39 Blood Pressure 146/73 H 12/06/18 19:39 Pulse Oximetry 98 12/06/18 19:39 [facility] Medical History Acne (Resolved) Cataracts, bilateral (Resolved ~2013) Chicken pox (Resolved ~1948) Fractures (Resolved ~1977) Headache (Chronic) Hypertension (Chronic ~1999) Measles (Resolved ~1953) Mumps (Resolved ~1953) Surgical History Anesthesia (Resolved) History of cataract removal with insertion of prosthetic lens (~2013) Status post appendectomy Status post dilation and curettage Status post tonsillectomy and adenoidectomy Status post tubal ligation Family History Father Cancer Grandfather Heart disease Grandmother Stroke Mother Cancer Brother No problems noted. Grandfather No problems noted. Grandmother No problems noted. Social History Smoking Status: Never smoker Social History Smoking Status: Never smoker Scores GCS [place] coma scale eye opening: Spontaneous David coma scale verbal response: Orientated [place] coma scale motor response: Obey commands David coma scale total score: 15 Course Orders Ordered: ED Orders 12/06/18 20:04 CT head/brain wo con Stat Discontinued Medications Lidocaine/Sodium Bicarbonate (Buffered Lidocaine 10 Ml Syr) 10 ml INJ NOW ONE Stop: 12/06/18 21:46 Vital Signs Vital signs: Vital Signs - 8 hr 12/06/18 19:39 Temperature 97.1 F L Pulse Rate 68 Respiratory Rate 16 Blood Pressure 146/73 H Pulse Oximetry 98 MDM - Fall Imaging Data CT scan - head: Radiologist's impression: [address] [address] [address] Scan Report Signed Patient: Heather Walker JMR#: [id number] : 5Acct:[id number] Age/Sex: 73 / FDate of Service: 12/06/18 Loc: ED Accession Number: [id number] Procedure: CT head/brain wo con Ordering Provider: Sherri Herring D.O. PROCEDURE: CT HEAD/BRAIN WO CON INDICATIONS: hit head, fall, no LOC, on Eliquis TECHNIQUE: Noncontrast 4.5 mm thick angled axial sections acquired from the foramen magnum to the vertex, with coronal and sagittal reformats. For radiation dose reduction, the following was used: automated exposure control, adjustment of mA and/or kV according to patient size. COMPARISON: [facility], CT, HEAD WITHOUT CONTRAST, 08/03/2017, 21:07. FINDINGS: Image quality: Excellent. CSF spaces: Basal cisterns are patent. No extra-axial fluid collections. The ventricles are symmetric in size and shape. Brain: No intracranial bleeds or masses. There is cerebral volume loss for age, with resultant ventricular and sulcal prominence. There are periventricular and deep white matter chronic small vessel ischemic changes. There is intracranial internal carotid artery atherosclerosis. Skull and face: Calvarium and visualized facial bones appear intact, without suspicious lesions. Sinuses: Visualized sinuses and mastoids are clear. IMPRESSION: 1. No acute intracranial abnormalities. Dictated by: Valeria Napier M.D. on 12/06/2018 at 21:27 Approved by: Valeria Napier M.D. on 12/06/2018 at 21:29 Discharge Plan Departure Patient Disposition: Home Clinical Impression: Fall, Face lacerations Discharge Date/Time: 12/06/18 22:27 Instructions: DI for Laceration Repair -- Simple Activity Restrictions/Additional Instructions: Follow-up with your physician in the next 5-7 days for recheck, and removal of sutures if they have not dissolved. Continue home medications as prescribed. You may continue tylenol up to 1000mg every 8 hours as needed for pain. Wound Care: Keep wound(s) clean and dry. Wash daily with soap and water only. Do not use over the counter products (alcohol or peroxide)on the wounds unless instructed by a physician. If wound condition worsens (increased/expanding redness, developing fluid blisters, or worsening pain), either contact your doctor for an urgent re- assessment , or return to the Emergency Department. Return to the Emergency Department for any new or worsening symptoms. you're having severe headaches, vision changes, persistent nausea or vomiting, lightheadedness, passing out, new chest pain shortness of breath, new weakness numbness or other new or concerning symptoms. Return if fever greater than 100.4 Fahrenheit, increased swelling, increasing pain or worsening symptoms such as increased discharge or spreading redness Prescriptions: No Action ASPIRIN (Aspir-Low) 81 mg PO Q DAY Qty: 0 RF: 0 dtwxfpqj-fjlr-DU-calcium-mins [Thera M Plus (ferrous fumarat)] 1 EACH tablet 1 tab PO Q DAY Qty: 0 RF: 0 lisinopril 10 mg tablet 10 mg PO DAILY Qty: 90 RF: 3 methylprednisolone [Medrol (Dandre)] 4 mg tablets,dose pack See Rx Instructions PO PER PKG DIR Qty: 21 RF: 0 Eliquis 5 mg tablet 5 mg PO BID Qty: 60 RF: 2 citalopram [Celexa] 20 mg tablet 20 mg PO QDAY Qty: 60 RF: 5 amlodipine [Norvasc] 5 mg tablet 5 mg PO QDAY Qty: 90 RF: 3 levothyroxine [Synthroid] 50 mcg tablet 50 mcg PO QDAY Qty: 90 RF: 3 rosuvastatin [Crestor] 5 mg tablet 5 mg PO QDAY Qty: 30 RF: 5 tramadol 50 mg tablet 50 mg PO Q8H PRN (Reason: pain) Qty: 60 RF: 1 naproxen sodium PO RF: 0 ferrous sulfate 325 mg (65 mg iron) tablet 325 mg PO DAILY RF: 0 Referrals: Gume Murray MD [Primary Care Provider] -
--- NOTE | 2018-12-06 20:04 | DI.CT.S_ITS ---
PROCEDURE: CT HEAD/BRAIN WO CON INDICATIONS: hit head, fall, no LOC, on Eliquis TECHNIQUE: Noncontrast 4.5 mm thick angled axial sections acquired from the foramen magnum to the vertex, with coronal and sagittal reformats. For radiation dose reduction, the following was used: automated exposure control, adjustment of mA and/or kV according to patient size. COMPARISON: [facility], CT, HEAD WITHOUT CONTRAST, 08/03/2017, 21:07. FINDINGS: Image quality: Excellent. CSF spaces: Basal cisterns are patent. No extra-axial fluid collections. The ventricles are symmetric in size and shape. Brain: No intracranial bleeds or masses. There is cerebral volume loss for age, with resultant ventricular and sulcal prominence. There are periventricular and deep white matter chronic small vessel ischemic changes. There is intracranial internal carotid artery atherosclerosis. Skull and face: Calvarium and visualized facial bones appear intact, without suspicious lesions. Sinuses: Visualized sinuses and mastoids are clear. IMPRESSION: 1. No acute intracranial abnormalities. Dictated by: Valeria Napier M.D. on 12/06/2018 at 21:27 Approved by: Valeria Napier M.D. on 12/06/2018 at 21:29
--- NOTE | 2018-12-07 06:03 | PC.NURSE ---
lidocaine adminstered by MD Herring
== END 2018-12-06 22:27 | disposition home or self-care (01) ==
PROVIDERS: Emergency Provider Emergency Medicine; PCP Family Medicine
DX: S01.81XA Laceration without foreign body of other part of head, initial encounter (principal); W01.0XXA Fall on same level from slipping, tripping and stumbling without subsequent striking against object, initial encounter
CPT/HCPCS: 70450; 99282; 99284

== ENCOUNTER → 2018-12-11 09:49 | Outpatient (CLI) | payer MEDICARE, OTHER, SELFPAY ==
--- NOTE | 2018-12-11 | DI.MG.S_ITS ---
BILATERAL DIGITAL SCREENING MAMMOGRAM 3D/2D WITH CAD: 12/11/2018 CLINICAL: Routine screening. Family history of breast cancer. Comparison is made to exams dated: 12/04/2017 mammogram, 12/03/2016 mammogram, and 11/23/2015 mammogram - [facility]. The tissue of both breasts is heterogeneously dense. This may lower the sensitivity of mammography. Current study was also evaluated with a Computer Aided Detection (CAD) system. There are benign calcifications in both breasts. There also are benign post operative findings in the left breast. No significant masses, calcifications, or other findings are seen in either breast. There has been no significant interval change. IMPRESSION: There is no mammographic evidence of malignancy. A 1 year screening mammogram is recommended. This exam was interpreted at Station ID: [id number]. NOTE: For mammograms, a report in lay terms will be sent to the patient. Approximately 15% of breast malignancies will not be visualized mammographically. In the management of a palpable breast mass, a negative mammogram must not discourage biopsy of a clinically suspicious lesion. Electronically Signed By: Giovany sandoval/iesha:12/11/2018 11:56:20 letter sent: Normal Exam ACR BI-RADS Category 2: Benign Finding(s) [id number]
== END ==
PROVIDERS: PCP Family Medicine; Visit Provider Family Medicine
DX: Z12.31 Encounter for screening mammogram for malignant neoplasm of breast (principal); Z80.3 Family history of malignant neoplasm of breast
CPT/HCPCS: 77063; 77067

== ENCOUNTER → 2019-01-06 12:41 | Outpatient (CLI) | payer MEDICARE, OTHER, SELFPAY ==
--- NOTE | 2019-01-06 12:44 | DI.MRI.S_ITS ---
PROCEDURE: MR CERVICAL SPINE WO CON INDICATIONS: Neck pain status post fall TECHNIQUE: Noncontrast sagittal T1 spin echo and T2 fast spin echo, sagittal STIR, foraminal oblique sagittal T2 fast spin echo, and axial gradient echo or T2 fast spin echo through the cervical spine. COMPARISON: [facility], MR, MR CERVICAL SPINE WO CON, 02/25/2018, 8:12. FINDINGS: Image quality: Excellent. Alignment and Curvature: There is normal bony alignment. Bone Marrow: Marrow demonstrates normal overall signal. Spinal Cord: Visualized spinal cord has normal size and signal. No cerebellar tonsillar herniation. Paraspinous Soft Tissues: No paravertebral masses. Prevertebral soft tissues are normal in thickness. C2-C3: Mild central disc herniation is seen with mild effacement of thecal sac anteriorly, no significant neuroforaminal narrowing. C3-C4: Broad-based disc bulge and central disc herniation is seen with mild central canal stenosis, no significant neural foramina narrowing. C4-C5: Mild broad-based disc bulge and central disc herniation is seen with effacement of thecal sac anteriorly, no significant neural foramina narrowing. C5-C6: Broad-based disc bulge and superimposed central disc herniation is seen causing mild to moderate central canal stenosis and mild bilateral neuroforaminal narrowing. C6-C7: Broad-based disc bulge is seen with no significant canal stenosis or neuroforamina narrowing. C7-T1: Normal appearance. IMPRESSION: 1. Broad-based disc bulge and superimposed central disc herniation at C5-6 level causing mild to moderate central canal stenosis and mild bilateral foramina narrowing. 2. Mild broad-based disc bulge and superimposed central disc herniation at C2-3, C3-4, C4-5 and C6-7 levels causing mild central canal stenosis, no significant neuroforaminal narrowing. 3. No marrow edema. No acute compression fracture or spondylolisthesis. No abnormal cervical spinal cord signal. Dictated by: Reno Fuller M.D. on 01/06/2019 at 14:40 Approved by: Reno Fuller M.D. on 01/06/2019 at 14:46
== END ==
PROVIDERS: PCP Family Medicine; Visit Provider Physical Medicine & Rehabilitation
DX: M50.21 Other cervical disc displacement, high cervical region (principal); M48.02 Spinal stenosis, cervical region; M41.20 Other idiopathic scoliosis, site unspecified; R51 Headache
CPT/HCPCS: 72141

== ENCOUNTER → 2019-02-14 08:35 | Outpatient (CLI) | payer MEDICARE, OTHER, SELFPAY ==
[2019-02-14 09:26] LABS: Add Manual Diff / Slide Review NO; Basophils Absolute Auto 100 /uL (0-100); Basophils Percent Auto 0.9 % (0-2); Eosinophils Absolute Auto 300 /uL (0-450); Eosinophils Percent Auto 3.6 % (2-4); Hematocrit 37.3 % (36-46); Hemoglobin 12.3 g/dL (12.0-16.0); Lymphocytes Absolute Auto 1600 /uL (1100-4500); Lymphocytes Percent Auto 23.2 % (25-40); Mean Corpuscular HGB Conc 32.8 % (30-36); Mean Corpuscular Hemoglobin 31.9 PG (26-34); Mean Corpuscular Volume 97.2 fL (80-100); Monocytes Absolute Auto 600 /uL (0-900); Monocytes Percent Auto 8.3 % (3-14); Neutrophils Absolute Auto 4500 /uL (1500-7000); Platelet Count 259 X10^3/uL (150-400); Red Blood Cell Count 3.84 X10^6/uL (4.0-5.2); Red Cell Distribution Width 12.8 % (11.6-14.8); White Blood Cell Count 7.1 X10^3/uL (4.5-11.0)
[2019-02-14 09:43] LABS: Alanine Aminotransferase 23 IU/L (<35); Albumin 4.6 g/dL (3.5-5.0); Albumin Globulin Ratio 1.5 (1.0-2.8); Alkaline Phosphatase 80 U/L (38-126); Aspartate Aminotransferase 25 IU/L (14-36); BUN Creatinine Ratio 23.6 (6-22); Bilirubin Total 0.4 mg/dL (0.2-1.3); Blood Urea Nitrogen 33 mg/dL (7-17); Calcium 11.7 mg/dL (8.4-10.2); Carbon Dioxide 25 mmol/L (22-32); Chloride 106 mmol/L (98-107); Cholesterol 155 mg/dL (140-199); Estimated Glomerular Filt Rate 36.9 mL/min (>60); Glucose 102 mg/dL (80-110); HDL Cholesterol 42 mg/dL (40-60); HEMOLYSIS < 15 (0-50); LDL Cholesterol Calculated 85 mg/dL (<100); Potassium 4.9 mmol/L (3.4-5.1); Sodium 141 mmol/L (137-145); Total Protein 7.6 g/dL (6.3-8.2); Triglycerides 140 mg/dL (35-150)
[2019-02-14 10:14] LABS: Thyroid Stimulating Hormone 1.21 uIU/mL (0.47-4.68)
== END ==
PROVIDERS: PCP Family Medicine; Visit Provider Family Medicine
DX: Z13.1 Encounter for screening for diabetes mellitus (principal); Z13.6 Encounter for screening for cardiovascular disorders; E03.9 Hypothyroidism, unspecified; E78.5 Hyperlipidemia, unspecified; I10 Essential (primary) hypertension
CPT/HCPCS: 36415; 80053; 80061; 84443; 85025

== ENCOUNTER → 2019-02-18 09:04 | Outpatient (CLI) | payer MEDICARE, OTHER, SELFPAY ==
[2019-02-18 10:17] LABS: Vitamin D 25 Hydroxy (D3) 55.5 ng/mL (30.0-100.0)
[2019-02-20 15:04] LABS: Parathyroid Hormone, Intact 100 pg/mL (14-64)
[2019-02-22 00:09] LABS: Albumin 100 %
[2019-03-02 12:50] LABS: Albumin 4.1 g/dL (3.8-4.8); Alpha 1 Globulin 0.3 g/dL (0.2-0.3); Beta 1 Globulin 0.4 g/dL (0.4-0.6); Gamma Globulin 0.9 g/dL (0.8-1.7); Protein, Total 7.2 g/dL (6.1-8.1); Protein/ Creatinine Ratio 134 mg/g creat (21-161); Total Urine Protein 12 mg/dL (5-24); Urine Creatinine, Random 90 mg/dL (20-275)
== END ==
PROVIDERS: PCP Family Medicine; Visit Provider Family Medicine
DX: E03.9 Hypothyroidism, unspecified (principal); E83.52 Hypercalcemia; R23.2 Flushing
CPT/HCPCS: 36415; 82306; 83970; 84155; 84156; 84165; 84166

== ENCOUNTER → 2019-03-03 11:20 | Outpatient (CLI) | payer MEDICARE, OTHER, SELFPAY ==
--- NOTE | 2019-03-03 11:23 | DI.RAD.S_ITS ---
PROCEDURE: XR CERVICAL SPINE 4V OR 5V INDICATIONS: Progressive neck pain upper extremity paresthesias TECHNIQUE: 5 views of the cervical spine acquired. COMPARISON: None. FINDINGS: Bones: No fractures or dislocations to the C6 level. Multilevel degenerative endplate sclerosis and spurring. Diffuse facet arthropathy. Ununited osteophytes seen at the level of C4-C5 and C5-C6. Straightening of the normal lordotic curvature. No definite disc space narrowing There is right C6-C7 and C7-T1 mild bony foraminal narrowing. No left-sided bony foraminal stenosis Soft tissues: No prevertebral soft tissue swelling. IMPRESSION: Diffuse cervical spondylosis and facet arthropathy Mild right C6-C7 and C7-T1 bony foraminal narrowing Dictated by: Darren Villanueva M.D. on 03/03/2019 at 13:13 Approved by: Darren Villanueva M.D. on 03/03/2019 at 13:15
== END ==
PROVIDERS: Family Provider Family Medicine; PCP Family Medicine; Visit Provider Physical Medicine & Rehabilitation
DX: M48.02 Spinal stenosis, cervical region (principal); R51 Headache; M47.812 Spondylosis without myelopathy or radiculopathy, cervical region; R20.2 Paresthesia of skin
CPT/HCPCS: 72050

== ENCOUNTER 2019-04-07 07:30 | Outpatient (CLI) | payer MEDICARE, OTHER, SELFPAY ==
[2019-04-07] VITALS (9 sets, daily range): BP systolic 113–160; BP diastolic 45–71; PULSE 49–60; RESP 16; TEMP 36.2; O2SAT 98–100
--- NOTE | 2019-04-07 07:32 | DI.RAD.S_ITS ---
PROCEDURE: PAIN C/T INTERLAMINAR INJECT INDICATIONS: SPINAL STENOSIS FINDINGS: Fluoroscopic spot filming was performed to verify placement of spinal needles at the C6-C7 level(s), as labeled on the films. Appropriate location(s) of the needle tip(s) was confirmed by injection of iodinated contrast. IMPRESSION: Fluoroscopy for pain management. Dictated by: Valeria Napier M.D. on 04/07/2019 at 9:35 Approved by: Valeria Napier M.D. on 04/07/2019 at 9:35
[2019-04-07] MEDS: MIDAZOLAM 5 MG/5 ML VIAL IV (08:57)
[2019-04-07] MEDS: IOPAMIDOL 15 ML VIAL 3 ML INJ (09:05)
[2019-04-07] MEDS: LIDOCAINE 1% 20 ML 5 ML INJ (09:06)
[2019-04-07] MEDS: DEXAMETHASONE 10 MG/ML VIAL 20 MG INJ (09:06)
--- NOTE | 2019-04-07 09:08 | PC.NURSE ---
ASSISTING PT OFF TABLE AND TRANSPORTING TO POST PROC AREA IN STABLE CONDITION. PASSING RN CARE OF PT OFF TO CHRISTIE Gomez RN.
--- NOTE | 2019-04-07 09:15 | PM.PROC.1 ---
Procedures Date/Time Date of procedure: 04/07/19 Time of procedure: 09:15 General Procedure description: PREOP DIAGNOSIS 1. CERVICAL STENOSIS, 2. CERVICAL HNP WITH UPPER EXTREMITY RADICULAR FEATURES, POST OP DIAGNOSIS 1. CERVICAL STENOSIS, 2. CERVICAL HNP WITH UPPER EXTREMITY RADICULAR FEATURES, PROCEDURES 1. FLUORSCOPICALLY GUIDED CONTRAST CONTROLLED INTERLAMINAR EPIDURAL STEROID INJECTION - C6/7 TL WES PHYSICIAN: Wilner Tee, DO INDICATIONS Heather is referred by Dr. Murray for treatment of Cervical HNP with Upper Extremity Paresthesias. FINDINGS Cervical Stenosis due to disc deterioration and nerve root irritation and nerve root irritation DESCRIPTION OF PROCEDURE Fluoroscopically guided, contrast-controlled C6/7 translaminar epidural steroid injection with conscious sedation. Following review of allergy and review of potential side effects and complications, including, but not necessarily limited to, infection, allergic reaction, local tissue breakdown, temporary as well as permanent nerve injury, stroke, paralysis, and possible , the patient indicated that patient understood and agreed to proceed. An informed consent document was signed by the patient, witnessed by a nurse, and placed in the patient's chart. Additionally, other treatment options including modalities, medications, and physical therapy were reviewed with the patient. After review of previous anaesthesic history and IV conscious sedation the patient was deemed safe to proceed with todays procedure with IV conscious sedation as ASA class II designation. Safety time-out was performed to confirm patient ID, procedure to be performed and site of procedure. IV sedation was accomplished with a combination of 3mg of Versed administered by the RN after DO order, titrated to patient comfort during the course of the procedure while the patient remained responsive to all verbal commands. In the prone position, following sterile prep and drape of the cervical region, the C6/7 translaminar space was identified fluoroscopically. The skin was anesthetized via a 25-gauge 1.5-inch needle with 1% lidocaine solution. At this point, a 25-gauge, 2.5-inch short bevel spinal needle was atraumatically introduced and advanced under fluoroscopic guidance into epidural space at the C6/7 translaminar space. Depth was confirmed on lateral view. Radiological data, including multiple fluoroscopic views of the cervical spine, reveal a spinal needle at the C6/7 translaminar space. Lateral views then show placement of the needle in the epidural space. Subsequent views show contrast material flowing superiorly and inferiorly in the epidural space. DSA fluoroscopy with live contrast injection, once again, confirmed no vascular or intrathecal uptake. At this point, using loss of resistance technique with saline and air, the epidural space was entered. Following negative aspiration, injection of approximately 1.5 cc of Isovue-200 with live fluoroscopy in the AP view confirmed epidural flow in the epidural space without vascular or intrathecal uptake observed. Subsequently, a test dose of 1 cc of 1% lidocaine solution was injected and patient was observed for two minutes without signs or symptoms of complications, including abdominal pain, shortness of breath, bilateral upper or lower extremity weakness, nausea and vomiting, prior to steroid injection. At this point, 2cc or 20mg of dexamethasone was then injected without incident. The patient tolerated the procedure well without signs or symptoms of complications prior to being transferred to the recovery area for further monitoring, The patient was then transferred to the recovery area where they were observed for an appropriate period of time after the injection. The patient reported a VAS score of 6 prior to the procedure and a post-procedure VAS of 0. Total Fluoroscopy Time: 37.0 seconds Total Conscious Time: 24min POST OP INSTRUCTIONS The patient was provided a Pain Log to continue to record their response to the target-specific procedure prior to follow-up visit with the referring provider. Additionally, specific post-injection care instructions and a contact number to our office were provided if concerns arise regarding possible complications associated with the procedure are suspected. Wilner Tee DO Complications: none
--- NOTE | 2019-04-07 12:19 | PC.NURSE ---
Post procedure note: Patient arrived post procedure at 0917. Awake but slightly drowsy. VSS on arrival at 0919. Pain level 0/10. Denies any unusual numbness or tingling. Discharge instructions reviwed with patient and friend with good understanding. Discharged to home, w/c to car at 0947
== END 2019-04-07 09:47 | disposition home or self-care (01) ==
LOC: RAD 07:31
PROVIDERS: Family Provider Family Medicine; PCP Family Medicine; Visit Provider Physical Medicine & Rehabilitation
DX: M48.02 Spinal stenosis, cervical region (principal); M50.123 Cervical disc disorder at C6-C7 level with radiculopathy
CPT/HCPCS: 62321; 99152; J1100; J2250; J3010

== ENCOUNTER → 2019-05-13 08:10 | Outpatient (CLI) | payer MEDICARE, OTHER, SELFPAY ==
[2019-05-13 09:57] LABS: BUN Creatinine Ratio 26.3 (6-22); Blood Urea Nitrogen 42 mg/dL (7-17); Calcium 12.4 mg/dL (8.4-10.2); Carbon Dioxide 24 mmol/L (22-32); Chloride 105 mmol/L (98-107); Cholesterol 152 mg/dL (140-199); Estimated Glomerular Filt Rate 31.5 mL/min (>60); Glucose 103 mg/dL (80-110); HDL Cholesterol 39 mg/dL (40-60); HEMOLYSIS < 15 (0-50); LDL Cholesterol Calculated 87 mg/dL (<100); Potassium 5.2 mmol/L (3.4-5.1); Sodium 140 mmol/L (137-145); Triglycerides 128 mg/dL (35-150)
[2019-05-13 10:27] LABS: Thyroid Stimulating Hormone 2.06 uIU/mL (0.47-4.68)
== END ==
PROVIDERS: Family Provider Family Medicine; PCP Family Medicine; Referring Provider Family Medicine; Visit Provider Family Medicine
DX: E03.9 Hypothyroidism, unspecified (principal); E21.3 Hyperparathyroidism, unspecified; I10 Essential (primary) hypertension; Z79.01 Long term (current) use of anticoagulants
CPT/HCPCS: 36415; 80048; 80061; 84443

== ENCOUNTER → 2019-06-02 13:23 | Outpatient (CLI) | payer MEDICARE, OTHER, SELFPAY ==
[2019-06-02 14:39] LABS: Alanine Aminotransferase 22 IU/L (<35); Albumin 4.7 g/dL (3.5-5.0); Albumin Globulin Ratio 1.4 (1.0-2.8); Alkaline Phosphatase 85 U/L (38-126); Aspartate Aminotransferase 24 IU/L (14-36); Bilirubin Total 0.3 mg/dL (0.2-1.3); Blood Urea Nitrogen 30 mg/dL (7-17); Calcium 11.6 mg/dL (8.4-10.2); Carbon Dioxide 24 mmol/L (22-32); Chloride 103 mmol/L (98-107); Estimated Glomerular Filt Rate 33.9 mL/min (>60); Globulin 3.4 g/dL (1.7-4.1); Glucose 138 mg/dL (80-110); HEMOLYSIS < 15 (0-50); Magnesium 2.2 mg/dL (1.6-2.3); Phosphorous 3.6 mg/dL (2.8-4.1); Potassium 4.1 mmol/L (3.4-5.1); Sodium 139 mmol/L (137-145); Total Protein 8.1 g/dL (6.3-8.2)
[2019-06-02 15:10] LABS: TSH w/ Reflex to FT4 0.61 uIU/mL (0.47-4.68)
[2019-06-04 15:46] LABS: Parathyroid Hormone Int 133 pg/mL (14-64)
[2019-06-06 15:55] LABS: Albumin 4.3 g/dL (3.8-4.8); Alpha 1 Globulin 0.3 g/dL (0.2-0.3); Alpha 2 Globulin 0.8 g/dL (0.5-0.9); Beta 1 Globulin 0.4 g/dL (0.4-0.6); Gamma Globulin 0.8 g/dL (0.8-1.7)
== END ==
PROVIDERS: Family Provider Family Medicine; PCP Family Medicine; Referring Provider Internal Medicine; Visit Provider Internal Medicine
DX: E83.52 Hypercalcemia (principal); E03.9 Hypothyroidism, unspecified
CPT/HCPCS: 36415; 80053; 83735; 83970; 84100; 84155; 84165; 84443

== ENCOUNTER 2019-06-04 10:35 | Outpatient (CLI) | payer MEDICARE, OTHER, SELFPAY | END 2019-06-09 13:13 | disposition home or self-care (01) | LOC: PHYS 10:38 | PROVIDERS: Family Provider Family Medicine; PCP Family Medicine; Referring Provider Physical Medicine & Rehabilitation; Visit Provider Physical Medicine & Rehabilitation | DX: R20.2 Paresthesia of skin (principal); M48.02 Spinal stenosis, cervical region | CPT/HCPCS: 95886; 95911 ==

== ENCOUNTER → 2019-06-08 10:09 | Outpatient (CLI) | payer MEDICARE, OTHER, SELFPAY ==
[2019-06-08 15:26] LABS: Calcium 24 Hour Urine 90 mg/day (100-300); Calcium Urine Random 3.6 mg/dL; Collection Time Urine 24 Hours; Total Volume Urine 2500 mL
[2019-06-08 15:28] LABS: Collection Time Urine 24 Hours; Creatinine 24 Hour Urine 828 mg/day (800-1800); Creatinine Urine Random 33.1 mg/dL; Total Volume Urine 2500 mL
== END ==
PROVIDERS: Family Provider Family Medicine; PCP Family Medicine; Referring Provider Internal Medicine; Visit Provider Internal Medicine
DX: E03.9 Hypothyroidism, unspecified (principal); E83.52 Hypercalcemia
CPT/HCPCS: 82340; 82570

== ENCOUNTER 2019-06-09 06:58 | Outpatient (CLI) | payer MEDICARE, OTHER, SELFPAY ==
[2019-06-09] VITALS (12 sets, daily range): BP systolic 101–140; BP diastolic 46–72; PULSE 52–65; RESP 13–20; TEMP 36.2; O2SAT 95–100
--- NOTE | 2019-06-09 07:00 | DI.RAD.S_ITS ---
PROCEDURE: PAIN L/S MED/LAT N RFA BILAT INDICATIONS: SPONDYLOSIS FINDINGS: Fluoroscopic spot filming was performed to verify placement of spinal needles at the L4, L5, S1 level(s), as labeled on the films. Appropriate location(s) of the needle tip(s) was confirmed by injection of iodinated contrast. Dictated by: Darren Villanueva M.D. on 06/09/2019 at 10:18 Approved by: Darren Villanueva M.D. on 06/09/2019 at 10:20
[2019-06-09] MEDS: MIDAZOLAM 5 MG/5 ML VIAL IV (08:22)
[2019-06-09] MEDS: BUPIVACAINE 0.5% (PF) VIAL 5 ML INJ (08:36)
[2019-06-09] MEDS: LIDOCAINE 1% 20 ML 10 ML INJ (08:36)
--- NOTE | 2019-06-09 08:58 | PC.NURSE ---
denies any pain
--- NOTE | 2019-06-09 09:06 | P.PCN_ITS ---
Procedures Date/Time Date of procedure: 06/09/19 Time of procedure: 09:06 General Procedure description: PREOP DIAGNOSIS 1. RECALCITRANT FACET ARTHROPATHY, POST OP DIAGNOSIS 1. RECALCITRANT FACET ARTHROPATHY PROCEDURES 1. BILATERAL L4 AND L5 MEDIAL BRANCH RADIOFREQUENCY NEUROTOMY AND S1 DORSAL RAMUS BRANCH RADIOFREQUENCY NEUROTOMY, PHYSICIAN: Wilner Tee DO INDICATIONS: Heather is referred by for treatment of facet arthropathy. DESCRIPTION OF PROCEDURE Bilateral L4 and L5 medial branch radiofrequency neurotomy and bilateral S1 dorsal ramus radiofrequency neurotomy under fluoroscopy with conscious sedation. The patient is well known to this clinic having undergone previous facet injections with good but temporary relief. The patient has experienced appropriate, concordant relief with previous facet and median branch blocks but the patient's pain has been recalcitrant to further conservative measures. Therefore, based upon the patient's relief and persistent symptoms, the patient is considered an appropriate candidate for facet rhizotomy. All of the patient's questions regarding the risks versus benefits of the procedure, including, but not limited to, bleeding, infection, temporary as well as lasting nerve injury, paralysis, stroke, and , as well treatment alternatives were answered to satisfaction. After obtaining informed consent, denial of pertinent drug allergies, as well as being made aware of the potential risks of bleeding, infection, spinal cord trauma, paralysis, temporary and permanent nerve damage, seizure, stroke, and possible , the patient was brought to the fluoroscopy suite and positioned prone on the fluoroscopy table. The lumbar region was prepped with Chlorhexadine and covered with a fenestrated drape in the usual sterile fashion. Appropriate monitors applied including pulse oximeter, pulse, and blood pressure for regular monitoring throughout the procedure. After review of previous anaesthesic history and IV conscious sedation the patient was deemed safe to proceed with todays procedure with IV conscious sedation as ASA class II designation. Safety time-out was performed to confirm patient ID, procedure to be performed and site of procedure. IV sedation was accomplished with 5mg of Versed administered by the RN after DO order, titrated to patient comfort during the course of the procedure while the patient remained responsive to all verbal commands. After local infiltration using 1% lidocaine, under fluoroscopic guidance, a 10- cm RF insulated needle with a 10-mm active tip was positioned parallel to the junction of the right sacral ala and the superior articulating process where the S1 dorsal ramus resides. Needle placement was confirmed with motor stimulation of .5v on the right which produced local stimulation without radicular component. The stimulation was then increased to 1.5v with, once again, only local multifidus stimulation without radicular component. The needle was then removed and the identical procedure was performed along the length of the right L5 medial branch with motor stimulation at .7v on the right. The identical procedure was once again performed along the length of the right L4 medial branch with motor stimulation of .5v on the right. The medial branches were then anesthetised with 0.5% Marcaine. This was then followed by two discreet lesions performed at 80 degrees Celsius for 90 seconds each. The identical procedure was repeated on the left. The patient tolerated the procedure well without signs or symptoms of complications prior to transfer to the recovery area continued monitoring without incident. The patient was then transferred to the recovery area where they were observed for an appropriate period of time after the injection. The patient reported a VAS score of 9 prior to the procedure and a post-procedure VAS of 0. Total Fluoroscopy Time: 11 seconds Total Conscious Sedation Time: 34min POST OP INSTRUCTIONS The patient was provided a Pain Log to continue to record the patient's response to the target-specific procedure prior to the patient's follow-up visit with the referring physician. Additionally, specific post-injection care instructions and a contact number to our office were provided if concerns arise regarding possible complications associated with the procedure are suspected. Wilner Tee DO Complications: none
--- NOTE | 2019-06-09 09:10 | PC.NURSE ---
ACCEPTED CARE OF PT IN POST PROC AREA IN STABLE CONDITION AT 0910.
--- NOTE | 2019-06-09 09:12 | PC.NURSE ---
0908 pt with 2 assist pt able to sit,stand and transfer self to w/c, transfer care to [facility]. pt pain free
--- NOTE | 2019-06-09 11:34 | PC.NURSE ---
at 0902 able to sit,stand,transfer self to w/c with 2 assist, pain free, transfer care to maria ines vazquez
== END 2019-06-09 10:27 | disposition home or self-care (01) ==
LOC: RAD 06:59
PROVIDERS: Family Provider Family Medicine; PCP Family Medicine; Referring Provider Physical Medicine & Rehabilitation; Visit Provider Physical Medicine & Rehabilitation
DX: M47.816 Spondylosis without myelopathy or radiculopathy, lumbar region (principal); M47.817 Spondylosis without myelopathy or radiculopathy, lumbosacral region
CPT/HCPCS: 64635; 64636; 99152; 99153; J2250; J3010

== ENCOUNTER → 2019-08-10 11:27 | Outpatient (CLI) | payer MEDICARE, OTHER, SELFPAY | PROVIDERS: Family Provider Family Medicine; PCP Family Medicine; Visit Provider Family Medicine | DX: R30.0 Dysuria (principal); R31.9 Hematuria, unspecified | CPT/HCPCS: 87086 ==

== ENCOUNTER → 2019-08-25 10:05 | Outpatient (CLI) | payer MEDICARE, OTHER, SELFPAY ==
--- NOTE | 2019-08-25 10:08 | DI.RAD.S_ITS ---
PROCEDURE: XR LUMBAR SPINE MIN 4V INDICATIONS: LBP with scoliosis and left LE pain TECHNIQUE: 4 views of the lumbar spine were acquired. COMPARISON: [facility], MR, MR LUMBAR SPINE WO CON, 08/29/2017, 12:54. [facility], CR, XR LUMBAR SPINE MIN 4V, 10/15/2017, 9:40. FINDINGS: Bones: No fracture or focal osseous destruction. Multilevel degenerative endplate sclerosis and spurring. Diffuse facet arthropathy. Grade 1 retrolisthesis of L2 on L3 and L3 on L4. Grade 1 anterolisthesis of L4 on L5. Severe narrowing of the L2-L3, L3-L4 and L5-S1 disc spaces. Mild to moderate narrowing of the remaining disc spaces. Scattered vascular calcifications seen in the aorta. Dextroscoliosis. Soft tissues: Overlying bowel gas pattern is normal. No suspicious soft tissue calcifications. Oblique images: No pars defects. IMPRESSION: Diffuse lumbar spondylosis and facet arthropathy as detailed above. Overall, no definite interval change. Multilevel spondylolisthesis as above. Dextroscoliosis. Dictated by: Darren Villanueva M.D. on 08/25/2019 at 11:20 Approved by: Darren Villanueva M.D. on 08/25/2019 at 11:24
== END ==
PROVIDERS: Family Provider Family Medicine; PCP Family Medicine; Referring Provider Physical Medicine & Rehabilitation; Visit Provider Physical Medicine & Rehabilitation
DX: M54.5 Low back pain (principal); M79.605 Pain in left leg; M47.26 Other spondylosis with radiculopathy, lumbar region; M47.27 Other spondylosis with radiculopathy, lumbosacral region; M43.16 Spondylolisthesis, lumbar region; M16.9 Osteoarthritis of hip, unspecified; M41.20 Other idiopathic scoliosis, site unspecified
CPT/HCPCS: 72110

== ENCOUNTER → 2019-08-26 10:00 | Outpatient (CLI) | payer MEDICARE, OTHER, SELFPAY ==
--- NOTE | 2019-08-26 | DI.CT.S_ITS ---
PROCEDURE: CT ABDOMEN PELVIS WO/W CON INDICATIONS: Hematuria, unspecified TECHNIQUE: Optional 5 mm thick noncontrast images acquired from the diaphragm to the symphysis pubis. After the administration of intravenous contrast, 5 mm thick images acquired from the diaphragm to the symphysis pubis after a 10-minute delay. 2 mm thick coronal and sagittal reformats were then performed of the kidneys and ureters. For radiation dose reduction, the following was used: automated exposure control, adjustment of mA and/or kV according to patient size. COMPARISON: None. FINDINGS: Image quality: Excellent. Lung bases: Lung bases are clear. Heart size is normal. Urinary system: Both kidneys are normal in size, without hydronephrosis or nephrolithiasis on pre-contrast images. No perinephric fat stranding. There is normal bilateral renal enhancement. Renal calyces appear normal in morphology when filled with contrast. There are several small renal cortical cysts one of which at the posterior lower left kidney contains a small amount of milk of calcium layering dependently Opacified portions of both ureters demonstrate normal caliber. Bladder wall thickness is normal. No calcified bladder stones. Other solid organs: Liver is normal in size and enhancement. Gallbladder appears normal. Biliary system is non dilated. Pancreas enhances normally. Spleen is normal in size and enhancement. No adrenal nodules. Peritoneum and bowel: Bowel loops demonstrate normal wall thickness and caliber. No free fluid or air. Nodes and vessels: No retroperitoneal or mesenteric adenopathy by size criteria. Aorta and inferior vena cava are normal in size. Abdominal wall: No ventral hernias. Pelvis: No pathologic free pelvic fluid. No inguinal hernias or adenopathy. Bones: No suspicious bony lesions. No vertebral body compression fractures. IMPRESSION: No urinary tract stone is found. No evidence of renal cortical or urothelial mass lesion is seen. Incidental note is made of a small centimeter diameter cyst at the posterior lower aspect of the left kidney containing a slight amount of posterior layering milk of calcium. No followup necessary. Dictated by: Jamin Harmon M.D. on 08/26/2019 at 12:00 Approved by: Jamin Harmon M.D. on 08/26/2019 at 12:06
[2019-08-26 10:58] LABS: Alanine Aminotransferase 14 IU/L (<35); Albumin 4.3 g/dL (3.5-5.0); Albumin Globulin Ratio 1.3 (1.0-2.8); Alkaline Phosphatase 74 U/L (38-126); Aspartate Aminotransferase 20 IU/L (14-36); Bilirubin Total 0.3 mg/dL (0.2-1.3); Blood Urea Nitrogen 40 mg/dL (7-17); Calcium 11.9 mg/dL (8.4-10.2); Carbon Dioxide 26 mmol/L (22-32); Chloride 106 mmol/L (98-107); Estimated Glomerular Filt Rate 37.4 mL/min (>60); Globulin 3.3 g/dL (1.7-4.1); Glucose 105 mg/dL (80-110); HEMOLYSIS < 15 (0-50); Potassium 5.9 mmol/L (3.4-5.1); Sodium 138 mmol/L (137-145); Total Protein 7.6 g/dL (6.3-8.2)
== END ==
PROVIDERS: Family Provider Family Medicine; PCP Family Medicine; Referring Provider Urology; Visit Provider Urology
DX: R31.9 Hematuria, unspecified (principal); N28.1 Cyst of kidney, acquired
CPT/HCPCS: 36415; 74178; 80053; Q9967

== ENCOUNTER → 2019-08-29 10:37 | Outpatient (CLI) | payer MEDICARE, OTHER, SELFPAY ==
[2019-08-30 08:25] LABS: COVID19 Sendout Not Detected (Not Detect)
== END ==
PROVIDERS: Family Provider Family Medicine; PCP Family Medicine; Visit Provider Physician Assistant
DX: Z01.818 Encounter for other preprocedural examination (principal)
CPT/HCPCS: 87635

== ENCOUNTER → 2019-09-01 10:17 | Outpatient (CLI) | payer MEDICARE, OTHER, SELFPAY ==
[2019-09-02 10:00] LABS: COVID19 Sendout Not Detected (Not Detect)
== END ==
PROVIDERS: Family Provider Family Medicine; PCP Family Medicine; Visit Provider Registered Nurse
DX: Z01.818 Encounter for other preprocedural examination (principal)
CPT/HCPCS: 87635

== ENCOUNTER 2019-09-03 09:28 | Outpatient (CLI) | payer MEDICARE, OTHER, SELFPAY ==
[2019-09-03] VITALS (8 sets, daily range): BP systolic 140–173; BP diastolic 47–71; PULSE 53–68; RESP 12–16; TEMP 36.6; O2SAT 97–100
--- NOTE | 2019-09-03 09:30 | DI.RAD.S_ITS ---
PROCEDURE: PAIN L/S TRANSFORAMINAL INJECT INDICATIONS: SPONDYLOSIS FINDINGS: Fluoroscopic spot filming was performed to verify placement of spinal needles at the left-sided L4-L5 neural foramen for transforaminal epidural steroid injection level(s), as labeled on the films. Appropriate location(s) of the needle tip(s) was confirmed by injection of iodinated contrast. IMPRESSION: Normal needle tip localization for transforaminal epidural steroid injection. Dictated by: Jamin Harmon M.D. on 09/03/2019 at 11:25 Approved by: Jamin Harmon M.D. on 09/03/2019 at 11:26
[2019-09-03] MEDS: MIDAZOLAM 5 MG/5 ML VIAL IV (10:29)
[2019-09-03] MEDS: IOPAMIDOL 15 ML VIAL 3 ML INJ (10:36)
[2019-09-03] MEDS: BETAMETHASONE 30 MG/5 ML MDV 6 MG INJ (10:37)
[2019-09-03] MEDS: DEXAMETHASONE 10 MG/ML VIAL 20 MG INJ (10:37)
[2019-09-03] MEDS: BUPIVACAINE 0.25% (PF) VIAL 2 ML INJ (10:37)
--- NOTE | 2019-09-03 10:42 | PC.NURSE ---
ASSISTING PT OFF TABLE AND TRANSPORTING TO POST PROC AREA IN STABLE CONDITION. PASSING RN CARE OF PT OFF TO [facility].
--- NOTE | 2019-09-03 10:44 | P.PCN_ITS ---
Procedures Date/Time Date of procedure: 09/03/19 Time of procedure: 10:44 General Procedure description: PREOP DIAGNOSIS 1. FORMAINAL STENOSIS WITH LE SYMPTOMS POST OP DIAGNOSIS 1. FORMAINAL STENOSIS WITH LE SYMPTOMS PROCEDURES 1. FLUOROSCOPICALLY GUIDED CONTRAST CONTROLLED TRANSFORAMINAL EPIDURAL STEROID INJECTION - LEFT L4/5 PHYSICIAN: Wilner Tee DO INDICATIONS: Heather is referred by Dr. Murray for treatment of Foraminal Stenosis with Left LE Symptoms FINDINGS Foraminal Nerve Root Compression secondary to disc disease and facet hypertrophy DESCRIPTION OF PROCEDURE: Following review of allergy and review of potential side effects and complications, including, but not necessarily limited to, infection, allergic reaction, local tissue breakdown, stroke, temporary or permanent nerve injury, paralysis, and possible , the patient indicated that the patient understood and agreed to proceed. An informed consent document was signed by the patient, witnessed by a nurse, and placed in the patient's chart. Additionally, other treatment options including medications, modalities, and physical therapy were reviewed with the patient. After review of previous anaesthesic history and IV conscious sedation the patie nt was deemed safe to proceed with todays procedure with IV conscious sedation as ASA class II designation. Safety time-out was performed to confirm patient ID, procedure to be performed and site of procedure. IV sedation was accomplished with a combination of 3mg of Versed administered by the RN after DO order, titrated to patient comfort during the course of the procedure while the patient remained responsive to all verbal commands In the prone position following sterile prep and drape of the lumbar region, the left L4/5 posterior neuroforamen was identified fluoroscopically. The skin was anesthetized via a 25-gauge 1.5-inch needle with 1% lidocaine solution. At this point, a 25-gauge 3.5-inch spinal needle was atraumatically introduced and advanced under fluoroscopic guidance through the posterior left L4/5 neuroforamen to approximately the anterior aspect of the canal. Depth was confirmed on lateral view. Following negative aspiration, injection of approximately 1.5 cc of Isovue 200 under live fluoroscopy in the AP view confirmed excellent flow along the nerve root, into the epidural space without vascular or intrathecal uptake observed Radiological data, including multiple fluoroscopic views of the lumbosacral spine, reveal a spinal needle at the left L4/5 posterior neuroforamen. Subsequent views show flow of contrast material flowing superiorly and inferiorly along the nerve root confirming epidural flow. Subsequently, a test dose of 1.5 cc of 1% lidocaine solution was administered and patient was observed for two minutes for signs or symptoms of complications, including abdominal pain, shortness of breath, bilateral upper or lower extremity weakness, nausea and vomiting, prior to steroid injection. At this point, a total of 3cc or 20mg of dexamethasone and 6mg of betamethasone was injected without incident. The procedure tolerated the procedure well without signs or symptoms of complications prior to transfer to the recovery area continued monitoring without incident. The patient was then transferred to the recovery area where they were observed for an appropriate time after the injection. The patient reported a VAS score of 7 prior to the procedure and a post- procedure VAS of 0. Total Fluoroscopy Time: 12 seconds Total Conscious Sedation Time: 24min POST OP INSTRUCTIONS The patient was provided a Pain Log to continue to record their response to the target-specific procedure prior to follow-up visit with their referring physician. Additionally, specific post-injection care instructions and a contact number to our office were provided if concerns arise regarding possible complications associated with the procedure are suspected. Wilner Tee DO Complications: none
== END 2019-09-03 11:05 | disposition home or self-care (01) ==
PROVIDERS: Family Provider Family Medicine; PCP Family Medicine; Referring Provider Family Medicine; Visit Provider Physical Medicine & Rehabilitation
DX: M48.061 Spinal stenosis, lumbar region without neurogenic claudication (principal); M51.16 Intervertebral disc disorders with radiculopathy, lumbar region
CPT/HCPCS: 64483; 99152; J0702; J1100; J2250; J3010

== ENCOUNTER → 2019-09-30 07:35 | Outpatient (CLI) | payer MEDICARE, OTHER, SELFPAY ==
[2019-09-30 09:46] LABS: Alanine Aminotransferase 15 IU/L (<35); Albumin 4.5 g/dL (3.5-5.0); Albumin Globulin Ratio 1.5 (1.0-2.8); Alkaline Phosphatase 85 U/L (38-126); Aspartate Aminotransferase 22 IU/L (14-36); Bilirubin Total 0.4 mg/dL (0.2-1.3); Blood Urea Nitrogen 29 mg/dL (7-17); Calcium 12.7 mg/dL (8.4-10.2); Carbon Dioxide 25 mmol/L (22-32); Chloride 105 mmol/L (98-107); Estimated Glomerular Filt Rate 31.3 mL/min (>60); Globulin 3.1 g/dL (1.7-4.1); Glucose 110 mg/dL (80-110); HEMOLYSIS < 15 (0-50); Magnesium 1.9 mg/dL (1.6-2.3); Phosphorous 3.1 mg/dL (2.8-4.1); Sodium 137 mmol/L (137-145); Total Protein 7.6 g/dL (6.3-8.2)
[2019-09-30 10:16] LABS: TSH w/ Reflex to FT4 3.82 uIU/mL (0.47-4.68)
[2019-10-01 07:14] LABS: Parathyroid Hormone Int 97 pg/mL (15-65)
[2019-10-02 14:12] LABS: Albumin 3.8 g/dL (2.9-4.4); Alpha-1-Globulin 0.2 g/dL (0.0-0.4); Gamma Globulin 0.8 g/dL (0.4-1.8); Protein, Total 6.8 g/dL (6.0-8.5)
[2019-10-03 17:58] LABS: Collection Time Urine 24 Hours; Total Volume Urine 2000 mL
[2019-10-03 18:06] LABS: Creatinine 24 Hour Urine 872 mg/day (800-1800); Creatinine Urine Random 43.6 mg/dL
[2019-10-03 19:02] LABS: Calcium 24 Hour Urine 50 mg/day (100-300); Calcium Urine Random 2.5 mg/dL
== END ==
PROVIDERS: Family Provider Family Medicine; PCP Family Medicine; Referring Provider Internal Medicine; Visit Provider Internal Medicine
DX: E03.9 Hypothyroidism, unspecified (principal); E83.52 Hypercalcemia
CPT/HCPCS: 36415; 80053; 82340; 82570; 83735; 83970; 84100; 84155; 84165; 84443

== ENCOUNTER → 2019-11-28 09:18 | Outpatient (CLI) | payer MEDICARE, OTHER, SELFPAY ==
[2019-11-29 18:50] LABS: COVID19 Sendout Not Detected (Not Detect)
== END ==
PROVIDERS: Family Provider Family Medicine; PCP Family Medicine; Visit Provider Nurse Practitioner
DX: Z11.59 Encounter for screening for other viral diseases (principal)
CPT/HCPCS: 87635

== ENCOUNTER 2019-12-01 08:59 | Outpatient (CLI) | payer MEDICARE, OTHER, SELFPAY ==
[2019-12-01] VITALS (8 sets, daily range): BP systolic 126–157; BP diastolic 50–68; PULSE 51–61; RESP 8–24; TEMP 36.6; O2SAT 99–100
--- NOTE | 2019-12-01 09:07 | DI.RAD.S_ITS ---
PROCEDURE: PAIN L INTERLAMINAR/CAUDAL INJ INDICATIONS: L4-5 TL WES COMPARISON: [facility], , PAIN L INTERLAMINAR/CAUDAL INJ, 10/16/2017, 9:10. FINDINGS: Fluoroscopic spot filming was performed to verify placement of spinal needles at the L4-L5 level(s), as labeled on the films. Appropriate location(s) of the needle tip(s) was confirmed by injection of iodinated contrast. Dictated by: Darren Villanueva M.D. on 12/01/2019 at 10:56 Approved by: Darren Villanueva M.D. on 12/01/2019 at 10:56
[2019-12-01] MEDS: MIDAZOLAM 5 MG/5 ML VIAL IV (10:19)
[2019-12-01] MEDS: DEXAMETHASONE 10 MG/ML VIAL 20 MG INJ (10:28)
[2019-12-01] MEDS: BUPIVACAINE 0.25% (PF) VIAL 2 ML INJ (10:29)
[2019-12-01] MEDS: IOPAMIDOL 15 ML VIAL 3 ML INJ (10:29)
[2019-12-01] MEDS: BETAMETHASONE 30 MG/5 ML MDV 6 MG INJ (10:29)
--- NOTE | 2019-12-01 10:41 | P.PCN_ITS ---
Date/Time/Diagnoses Date of procedure: 12/01/19 Time of procedure: 10:41 Pre-procedure diagnosis: 1. HNP WITH RADICULAR FEATURES, 2. MULTILEVEL CENTRAL STENOSIS, Post-procedure diagnosis: same Procedure Notes Procedure: 1. FLUOROSCOPICALLY GUIDED CONTRAST CONTROLLED INTERLAMINAR EPIDURAL STEROID INJECTION -L4/5 Indications: Heather is referred by Dr. Jim for treatment of Bilateral Foraminal Stenosis R>L LE symptoms. Physician: Wilner Tee Total Fluoroscopy time (seconds): 12 Total sedation minutes: 18 Complications: none Procedure in detail & Post-procedure care: FINDINGS Multilevel Central Spinal Stenosis with Nerve Root Compression DESCRIPTION OF PROCEDURE Fluoroscopically guided, contrast-controlled L4/5 translaminar epidural steroid injection. Following review of allergy and review of potential side effects and complications, including, but not necessarily limited to, infection, allergic reaction, local tissue breakdown, temporary as well as permanent nerve injury, paralysis, stroke and possible , the patient indicated that the patient understood and agreed to proceed. An informed consent document was signed by the patient, witnessed by a nurse, and placed in the patient's chart. Additionally, other treatment options including modalities, medications, and physical therapy were reviewed with the patient. After review of previous anaesthesic history and IV conscious sedation the patient was deemed safe to proceed with today?s procedure with IV conscious sedation as ASA class II designation. Safety time-out was performed to confirm patient ID, procedure to be performed and site of procedure. IV sedation was accomplished with a combination of 3mg of Versed was administered by the RN after DO order, titrated to patient comfort during the course of the procedure while the patient remained responsive to all verbal commands In the prone position, following sterile prep and drape of the lumbar region, the L4/5 translaminar space was identified fluoroscopically. The skin was anesthetized via a 25-gauge, 1.5inch needle with 1% lidocaine solution. At this point, a 22-gauge short bevel spinal needle was atraumatically introduced and advanced under fluoroscopic guidance into the region of the L4/5 translaminar space. Depth was confirmed on lateral view. Radiological data, including multiple fluoroscopic views of the lumbar spine, reveal a spinal needle at the L4/5 translaminar space. Lateral views then show placement of the needle in the epidural space. Subsequent views show contrast material flowing superiorly and inferiorly in the epidural space. No vascular or intrathecal uptake is observed. At this point, using loss of resistance technique with saline and air, the epidural space was entered. This was confirmed following negative aspiration with injection of approximately 1.5cc of Isovue 200, showing excellent epidural flow without vascular or intrathecal uptake. At this point, 1cc of 1% lidocaine solution combined with 3cc or 20mg of dexamethasone and 6mg betamethasone was injected without incident. The patient tolerated the procedure well without signs or symptoms of complications prior to transfer to the recovery area continued monitoring without incident. The patient was then transferred to the recovery area where they were observed for an appropriate period of time after the injection. The patient reported a VAS score of 6 prior to the procedure and a post- procedure VAS of 0. POST OP INSTRUCTIONS The patient was provided a Pain Log to continue to record their response to the target-specific procedure prior to follow-up visit with their referring physician. Additionally, specific post-injection care instructions and a contact number to our office were provided if concerns arise regarding possible complications associated with the procedure are suspected.
== END 2019-12-01 11:06 | disposition home or self-care (01) ==
PROVIDERS: Family Provider Family Medicine; PCP Family Medicine; Referring Provider Physical Medicine & Rehabilitation; Visit Provider Physical Medicine & Rehabilitation
DX: M51.16 Intervertebral disc disorders with radiculopathy, lumbar region (principal); M48.061 Spinal stenosis, lumbar region without neurogenic claudication
CPT/HCPCS: 62323; 99152; J0702; J1100; J2250; J3010

== ENCOUNTER → 2019-12-15 09:22 | Outpatient (CLI) | payer MEDICARE, OTHER, SELFPAY ==
--- NOTE | 2019-12-15 09:32 | DI.MG.S_ITS ---
Patient Name: TESSA COTTON date: 1945 Sex: F Attending Physician: Trevor Indications: Date: 12/15/2019 09:26 At the request of: SUSAN ZARAGOZA Procedure: MM screening mammo BI BILATERAL DIGITAL SCREENING MAMMOGRAM 3D/2D WITH CAD: 12/15/2019 CLINICAL: Routine screening. Family history of breast cancer. Comparison is made to exams dated: 12/11/2018 mammogram, 12/04/2017 mammogram, and 12/03/2016 mammogram - [facility]. The tissue of both breasts is heterogeneously dense. This may lower the sensitivity of mammography. Current study was also evaluated with a Computer Aided Detection (CAD) system. There are benign calcifications in both breasts. There also are benign post operative findings in the left breast. No significant masses, calcifications, or other findings are seen in either breast. There has been no significant interval change. IMPRESSION: BENIGN There is no mammographic evidence of malignancy. A 1 year screening mammogram is recommended. This exam was interpreted at Station ID: [id number]. NOTE: For mammograms, a report in lay terms will be sent to the patient. Approximately 15% of breast malignancies will not be visualized mammographically. In the management of a palpable breast mass, a negative mammogram must not discourage biopsy of a clinically suspicious lesion. Electronically Signed By: Michell sofia/iesha:12/15/2019 10:36:39 letter sent: Normal Exam ACR BI-RADS Category 2: Benign Finding(s) 3342F Continued Report - Page 2 of 2 Patient Name: TESSA COTTON date: 1945 Sex: F Attending Physician: Trevor Indications: Date: 12/15/2019 09:26 At the request of: SUSAN ZARAGOZA Procedure: MM screening mammo BI
== END ==
PROVIDERS: Family Provider Family Medicine; PCP Family Medicine; Referring Provider Family Medicine; Visit Provider Family Medicine
DX: Z12.31 Encounter for screening mammogram for malignant neoplasm of breast (principal); Z80.3 Family history of malignant neoplasm of breast
CPT/HCPCS: 77063; 77067

== ENCOUNTER 2020-01-28 18:13 | Emergency (ER) | payer MEDICARE, OTHER, SELFPAY ==
[2020-01-28] VITALS (8 sets, daily range): BP systolic 135–177; BP diastolic 64–78; PULSE 59–85; RESP 18; TEMP 36.6; O2SAT 98–100; BMI 25.7
[2020-01-28] MEDS: ONDANSETRON 4 MG ODT SL (18:36)
--- NOTE | 2020-01-28 19:37 | PC.NURSE ---
Pt took tramadol 50mg at 0400 today. Nausea/vomiting started 0800.
--- NOTE | 2020-01-28 19:56 | ED.NAVMDI ---
HPI - Nausea/Vomiting/Diarrhea General Chief complaint: Nausea/Vomiting/Diarrhea Stated complaint: back pain Time Seen by Provider: 01/28/20 19:44 Source: patient Mode of arrival: Wheelchair Limitations: no limitations History of Present Illness HPI Narrative: 74F nonsmoker with a history of HTN, hyperlipidemia and chronic back pain presents with multiple episodes of vomiting over the day. She feels poorly and weak. She just started taking Ultram yesterday to help with her ongoing back pain. She sees Dr. Tee, our back pain specialist and is scheduled for injections in a few weeks. She denies any worsening pain. She denies any trouble controlling bowel or bladder. She denies any numbness, tingling or weakness. She has no footdrop. She states that historically she has significant vomiting when she takes medications such as morphine or oxycodone, she thinks she has never taken Ultram before. She denies any fever or chills. She has no abdominal pain. Related Data Home Medications Medication Instructions Recorded Confirmed ASPIRIN (Aspir-Low) 81 mg PO Q DAY #0 03/20/11 01/27/20 [id number]-ygmi-[id number]-calcium-mins 1 tab PO Q DAY #0 03/20/11 01/27/20 [Thera M Plus (ferrous fumarat)] ferrous sulfate 325 mg (65 mg 325 mg PO DAILY tab 03/19/18 01/27/20 iron) tablet triamcinolone acetonide 0.1 % TOP 07/20/19 01/27/20 topical ointment hydrocodone 5 mg-acetaminophen 325 tab PO 10/07/19 01/27/20 mg tablet Previous Rx's Medication Instructions Recorded levothyroxine 50 mcg tablet 50 mcg PO QDAY #90 tab 02/21/18 citalopram 20 mg tablet 40 mg PO QDAY #180 tab 02/24/19 amlodipine 5 mg tablet See Rx Instructions .ROUTE 03/11/19 .COMPLEX #90 tablet lisinopril 10 mg tablet See Rx Instructions .ROUTE 03/11/19 .COMPLEX #90 tablet tramadol 50 mg tablet 50 mg PO BID PRN #30 tab 07/20/19 rosuvastatin 5 mg tablet See Rx Instructions .ROUTE 09/16/19 .COMPLEX #60 tablet rivaroxaban 15 mg tablet 15 mg PO .COMPLEX #111 tab 09/22/[address] #1 each 10/06/19 tizanidine 2 mg tablet 2 mg PO TID PRN #60 tab 01/27/20 Allergies Allergy/AdvReac Type Severity Reaction Status Date / Time hydrocodone [HYDROCODONE] Allergy Intermediate NAUSEA / Verified 01/28/20 18:24 VOMITING Sulfa (Sulfonamide Allergy Mild Hives Verified 01/28/20 18:24 Antibiotics) [SULFA (SULFONAMIDE ANTIBIOTICS)] morphine [MORPHINE] AdvReac Mild Vomiting Verified 01/28/20 18:24 Review of Systems Constitutional Constitutional: Denies chills, Denies fatigue, Denies fever(s), Denies frequent falls, Denies lethargy and Reports weakness Eyes Eyes: Denies change in vision, Denies eye discharge, Denies irritation and Denies loss of vision ENT Ears, Nose, Mouth, and Throat: Denies change in voice, Denies dizziness, Denies neck pain, Denies sore throat and Denies throat swelling Cardiovascular Cardiovascular: Denies chest pain, Denies irregular heart rhythm, Denies lightheadedness, Denies palpitations, Denies dyspnea, Denies dyspnea on exertion and Denies orthopnea Respiratory Respiratory: Denies cough, Denies dyspnea, Denies dyspnea on exertion and Denies wheezing Gastrointestinal Gastrointestinal: Denies abdominal pain, Denies change in bowel habits, Denies diarrhea, Reports nausea and Reports vomiting Musculoskeletal Musculoskeletal: Reports back pain, Denies neck pain and Denies numbness Integumentary/Breasts Skin/Breast: Denies pruritus, Denies erythema, Denies rash and Denies wounds Neurologic Neurologic: Denies behavioral changes, Denies confusion, Denies dizziness, Denies frequent falls, Denies loss of vision, Denies numbness and Reports weakness Psychiatric Psychiatric: Denies anxiety, Denies behavioral changes, Denies confusion, Denies depression, Denies homicidal ideation and Denies suicidal ideation Endocrine Endocrine: Denies fatigue, Denies flushing and Denies palpitations Hematologic/Lymphatic Hematologic/Lymphatic: Denies easy bruising Allergic/Immunologic Allergic/Immunologic: Denies urticaria, Denies throat swelling and Denies wheezing Patient History Medical History Acne (Resolved) Cataracts, bilateral (Resolved ~2013) Chicken pox (Resolved ~1948) Chronic anticoagulation (Chronic) Facet arthropathy, lumbosacral (Acute) Facial abrasion (Inactive ~10/07/19) Foraminal stenosis of cervical region (Chronic) Fractures (Resolved ~1977) Headache (Chronic) Hypertension (Chronic ~1999) Measles (Resolved ~1953) Mumps (Resolved ~1953) Paresthesia of left upper extremity (Acute) Pruritic rash (Acute) Surgical History Anesthesia (Resolved) History of cataract removal with insertion of prosthetic lens (~2013) Status post appendectomy Status post dilation and curettage Status post tonsillectomy and adenoidectomy Status post tubal ligation Family History Father Cancer Grandfather Heart disease Grandmother Stroke Mother Cancer Brother No problems noted. Grandfather No problems noted. Grandmother No problems noted. Social History Smoking Status: Never smoker Smoking Status: Never smoker alcohol intake frequency: a few times a month Substance Use Type: does not use Exam Narrative Exam Narrative: GENERAL: [74] year old patient appears stated age. Well-nourished, well-developed patient, in mild distress. HEAD: Atraumatic. Normocephalic. EYES: Pupils equal round and reactive. Extraocular motions intact. No scleral icterus. No injection or drainage. ENT: Dry mucous membranes. Nose without bleeding, purulent drainage. Throat without erythema, tonsillar hypertrophy or exudate. Airway patent. NECK: Trachea midline. Non tender CARDIOVASCULAR: Regular rate and rhythm without murmurs, gallops, or rubs. RESPIRATORY: Clear to auscultation. Breath sounds equal bilaterally. No wheezes, rales, or rhonchi. GASTROINTESTINAL: Abdomen soft, non-tender, nondistended. EXTREMITIES: No edema or joint tenderness. BACK: Nontender without deformity or crepitance. No flank tenderness. NEURO: AOx3. SKIN: Poor skin turgor. No rash or erythema of visible areas Initial Vital Signs Initial Vital Signs: Vital Signs Temperature 97.8 F 01/28/20 18:24 Pulse Rate 85 01/28/20 18:24 Respiratory Rate 18 01/28/20 18:24 Blood Pressure 136/70 01/28/20 18:24 Pulse Oximetry 98 01/28/20 18:24 Course Course Course Narrative: Patient feels significant, if not complete relief after the above-stated therapies. Her orthostatics are unremarkable, she is able ambulate through the department and states that she has not felt this good in days. Orders Ordered: ED Orders 01/28/20 19:20 Complete Blood Count AUTO DIFF Stat Comprehensive Metabolic Panel Stat 01/28/20 23:32 Urine Microscopic Stat Discontinued Medications Sodium Chloride (Normal Saline 0.9%) 1,000 mls @ 1,000 mls/hr IV BOLUS ONE Stop: 01/28/20 22:20 Last Infusion: 01/28/20 22:43 Dose: 0 mls/hr Documented by: Admin: 01/28/20 21:27 Dose: 1,000 mls/hr Documented by: MARIEBL Sodium Chloride (Normal Saline 0.9%) 1,000 mls @ 1,000 mls/hr IV BOLUS ONE Stop: 01/28/20 23:23 Last Infusion: 01/28/20 23:55 Dose: 0 mls/hr Documented by: Admin: 01/28/20 22:37 Dose: 1,000 mls/hr Documented by: MARIBEL Metoclopramide HCl (Reglan) 5 mg IV NOW ONE Stop: 01/28/20 22:25 Last Admin: 01/28/20 22:37 Dose: 5 mg Documented by: MARIBEL Ondansetron HCl (Zofran Odt) 4 mg SL NOW ONE Stop: 01/28/20 18:33 Last Admin: 01/28/20 18:36 Dose: 4 mg Documented by: ASHLEY Ondansetron HCl (Zofran) 4 mg IV NOW ONE Stop: 01/28/20 21:22 Last Admin: 01/28/20 21:27 Dose: 4 mg Documented by: MARIBEL Pantoprazole Sodium (Protonix) 40 mg IV NOW ONE Stop: 01/28/20 22:25 Last Admin: 01/28/20 22:37 Dose: 40 mg Documented by: MARIBEL Vital Signs Vital signs: Vital Signs - 8 hr 01/28/20 18:24 01/28/20 19:30 01/28/20 20:30 Temperature 97.8 F Pulse Rate 85 62 59 L Pulse Rate [Orthostatic Lying] Pulse Rate [Orthostatic Sitting] Pulse Rate [Orthostatic Standing] Respiratory Rate 18 Blood Pressure 136/70 152/67 H 172/72 H Blood Pressure [Orthostatic Lying] Blood Pressure [Orthostatic Sitting] Blood Pressure [Orthostatic Standing] Pulse Oximetry 98 100 99 01/28/20 21:30 01/28/20 22:30 01/28/20 23:21 Temperature Pulse Rate 64 63 Pulse Rate [Orthostatic Lying] 59 L Pulse Rate [Orthostatic Sitting] 77 Pulse Rate [Orthostatic Standing] 76 Respiratory Rate Blood Pressure 148/78 H 159/69 H Blood Pressure [Orthostatic Lying] 135/64 Blood Pressure [Orthostatic Sitting] 139/65 Blood Pressure [Orthostatic Standing] 172/70 H Pulse Oximetry 99 100 01/28/20 23:30 Temperature Pulse Rate 72 Pulse Rate [Orthostatic Lying] Pulse Rate [Orthostatic Sitting] Pulse Rate [Orthostatic Standing] Respiratory Rate Blood Pressure 177/70 H Blood Pressure [Orthostatic Lying] Blood Pressure [Orthostatic Sitting] Blood Pressure [Orthostatic Standing] Pulse Oximetry 99 MDM - Nausea/Vomiting/Diarrhea Lab Data Result diagrams: 01/28/20 19:20 01/28/20 19:20 Labs: Lab Results 01/28/20 01/28/20 01/28/20 Range/Units 19:20 19:20 23:32 WBC 13.7 H (4.5-11.0) X10^3/uL RBC 4.17 (4.0-5.2) X10^6/uL Hgb 13.1 (12.0-16.0) g/dL Hct 39.9 (36-46) % MCV 95.7 (80-100) fL MCH 31.3 (26-34) PG MCHC 32.7 (30-36) % RDW 12.0 (11.6-14.8) % Plt Count 240 (150-400) X10^3/uL Neut % (Auto) 81.2 H (50-75) % Lymph % (Auto) 10.9 L (25-40) % [place] % (Auto) 6.7 (3-14) % Eos % (Auto) 0.3 L (2-4) % Baso % (Auto) 0.9 (0-2) % Neut # (Auto) 52866 H (9774-1588) /uL Lymph # (Auto) 1500 (5780-6283) /uL [place] # (Auto) 900 (0-900) /uL Eos # (Auto) 0 (0-450) /uL Baso # (Auto) 100 (0-100) /uL Sodium 139 (137-145) mmol/L Potassium 4.8 (3.4-5.1) mmol/L Chloride 105 (98-107) mmol/L Carbon Dioxide 26 (22-32) mmol/L BUN 32 H (7-17) mg/dL Creatinine 1.50 H (0.52-1.04) mg/dL Estimated GFR 33.9 L (>60) mL/min BUN/Creatinine Ratio 21.3 (6-22) Glucose 121 H (80-110) mg/dL Calcium 12.0 H (8.4-10.2) mg/dL Total Bilirubin 0.7 (0.2-1.3) mg/dL AST 25 (14-36) IU/L ALT 21 (<35) IU/L Alkaline Phosphatase 102 (38-126) U/L Total Protein 8.0 (6.3-8.2) g/dL Albumin 4.6 (3.5-5.0) g/dL Globulin 3.4 (1.7-4.1) g/dL Albumin/Globulin Ratio 1.4 (1.0-2.8) Urine RBC None seen (0-5/HPF) Urine WBC None seen (0-5/HPF) Urine Bacteria None seen (None) Ur Culture Indicated? Cult not indicated Urine Dip Bedside Urine Glucose Negative Bedside Urine Bilirubin - Negative Bedside Urine Ketone - Negative Urine Specific [employer] 1.015 Bedside Urine Occult Blood +/- Bedside Urine pH 6 Bedside Urine Protein - Negative Bedside Urine Urobilinogen - Negative Bedside Urine Nitrite - Negative Bedside Urine Leukocytes - Negative Esterase Discharge Plan Departure Patient Disposition: Home Clinical Impression: Acute dehydration Vomiting Qualifiers: Vomiting type: unspecified Vomiting Intractability: non-intractable Nausea presence: with nausea Qualified Code(s): R11.2 - Nausea with vomiting, unspecified Instructions: DI for Dehydration -- Adult, DI for Vomiting -- Adult Activity Restrictions/Additional Instructions: *You have been diagnosed with [nausea and vomiting, likely due to taking opioids with associated dehydration.] *What to do: *Take medications as directed *Follow up with your primary care provider in 2-3 days, call for an appointment. Let them know you were seen in the Emergency Department and that we ask that you be seen in follow up *Return to ER if you should have any new, worsening or concerning symptoms 1. Drink plenty of fluids with frequent small sips. 2. For the next 24 hours a clear liquid diet is advised. After that please employ a B.R.A.T. diet which would include bananas, rice, apples, toast and other mild food items 3. Please take medications as directed. 4. Please follow-up with your doctor in the next 1-2 days. Call the office for an appointment. 5. Please return to the emergency Department for any worsening or persistent symptoms, such as increasing pain or fever. Prescriptions: No Action ASPIRIN (Aspir-Low) 81 mg PO Q DAY Qty: 0 RF: 0 zutfaims-iejq-US-calcium-mins [Thera M Plus (ferrous fumarat)] 1 EACH tablet 1 tab PO Q DAY Qty: 0 RF: 0 amlodipine 5 mg tablet See Rx Instructions .ROUTE .COMPLEX Qty: 90 RF: 3 lisinopril 10 mg tablet See Rx Instructions .ROUTE .COMPLEX Qty: 90 RF: 3 rosuvastatin 5 mg tablet See Rx Instructions .ROUTE .COMPLEX Qty: 60 RF: 4 Xarelto 15 mg tablet 15 mg PO .COMPLEX Qty: 111 RF: 2 levothyroxine [Synthroid] 50 mcg tablet 50 mcg PO QDAY Qty: 90 RF: 3 citalopram [Celexa] 20 mg tablet 40 mg PO QDAY Qty: 180 RF: 3 (DME) disabled parking permit See Rx Instructions .ROUTE .MEDSUPPLY Qty: 1 RF: 0 hydrocodone-acetaminophen 5-325 mg tablet PO RF: 0 tizanidine 2 mg tablet 2 mg PO TID PRN (Reason: muscle spasticity) Qty: 60 RF: 1 ferrous sulfate 325 mg (65 mg iron) tablet 325 mg PO DAILY RF: 0 triamcinolone acetonide 0.1 % ointment TOP RF: 0 tramadol 50 mg tablet 50 mg PO BID PRN (Reason: pain) Qty: 30 RF: 1 Referrals: Gume Murray MD [Primary Care Provider] -
[2020-01-28 21:26] LABS: Add Manual Diff / Slide Review NO; Basophils Absolute Auto 100 /uL (0-100); Basophils Percent Auto 0.9 % (0-2); Eosinophils Absolute Auto 0 /uL (0-450); Eosinophils Percent Auto 0.3 % (2-4); Hematocrit 39.9 % (36-46); Hemoglobin 13.1 g/dL (12.0-16.0); Lymphocytes Absolute Auto 1500 /uL (1100-4500); Lymphocytes Percent Auto 10.9 % (25-40); Mean Corpuscular HGB Conc 32.7 % (30-36); Mean Corpuscular Hemoglobin 31.3 PG (26-34); Mean Corpuscular Volume 95.7 fL (80-100); Monocytes Absolute Auto 900 /uL (0-900); Monocytes Percent Auto 6.7 % (3-14); Neutrophils Absolute Auto 11100 /uL (1500-7000); Neutrophils Percent Auto 81.2 % (50-75); Platelet Count 240 X10^3/uL (150-400); Red Blood Cell Count 4.17 X10^6/uL (4.0-5.2); White Blood Cell Count 13.7 X10^3/uL (4.5-11.0)
[2020-01-28] MEDS: SODIUM CHLORIDE 0.9% 1,000 ML 1000 ML IV ×2 (21:27→22:37)
[2020-01-28] MEDS: ONDANSETRON 4 MG/2 ML INJ IV (21:27)
[2020-01-28 21:34] LABS: Alanine Aminotransferase 21 IU/L (<35); Albumin 4.6 g/dL (3.5-5.0); Albumin Globulin Ratio 1.4 (1.0-2.8); Alkaline Phosphatase 102 U/L (38-126); Aspartate Aminotransferase 25 IU/L (14-36); BUN Creatinine Ratio 21.3 (6-22); Bilirubin Total 0.7 mg/dL (0.2-1.3); Blood Urea Nitrogen 32 mg/dL (7-17); Carbon Dioxide 26 mmol/L (22-32); Chloride 105 mmol/L (98-107); Estimated Glomerular Filt Rate 33.9 mL/min (>60); Globulin 3.4 g/dL (1.7-4.1); Glucose 121 mg/dL (80-110); HEMOLYSIS < 15 (0-50); Potassium 4.8 mmol/L (3.4-5.1); Sodium 139 mmol/L (137-145)
[2020-01-28] MEDS: METOCLOPRAMIDE 10 MG/2 ML INJ 5 MG IV (22:37)
[2020-01-28] MEDS: PANTOPRAZOLE 40 MG VIAL IV (22:37)
[2020-01-28 23:34] LABS: Bacteria Urine None Seen; RBC Urine None Seen (0-5/HPF); WBC Urine None Seen (0-5/HPF)
[2020-01-28 23:45] LABS: Culture Indicated Urine Cult Not Indicated
--- NOTE | 2020-01-28 23:56 | PC.NURSE ---
Second liter infused. Pt reports feeling better. Able to sit up and walk to bathroom without nausea.
[2020-01-29] VITALS: BP 154/69; PULSE 77; RESP 16; TEMP 37.1; O2SAT 98
== END 2020-01-29 00:10 | disposition home or self-care (01) ==
PROVIDERS: Emergency Provider Emergency Medicine; Family Provider Family Medicine; PCP Family Medicine
DX: E86.0 Dehydration (principal); R11.2 Nausea with vomiting, unspecified; I10 Essential (primary) hypertension; E78.5 Hyperlipidemia, unspecified
CPT/HCPCS: 36415; 80053; 81003; 81015; 85025; 96361; 96374; 96375; 99284; C9113; J2405; J2765

== ENCOUNTER → 2020-02-06 14:47 | Outpatient (CLI) | payer MEDICARE, OTHER, SELFPAY ==
[2020-02-08 02:23] LABS: COVID19 Sendout Not Detected (Not Detect)
== END ==
PROVIDERS: Family Provider Family Medicine; PCP Family Medicine; Visit Provider Nurse Practitioner
DX: Z11.59 Encounter for screening for other viral diseases (principal)
CPT/HCPCS: 87635

== ENCOUNTER 2020-02-09 10:14 | Outpatient (CLI) | payer MEDICARE, OTHER, SELFPAY ==
[2020-02-09] VITALS (10 sets, daily range): BP systolic 137–184; BP diastolic 59–78; PULSE 50–97; RESP 9–23; TEMP 36.1; O2SAT 94–100
--- NOTE | 2020-02-09 10:17 | DI.RAD.S_ITS ---
PROCEDURE: PAIN L/S FACET INJ/BLK 1ST ALEX COMPARISON: None. INDICATIONS: SPONDYLOSIS FINDINGS: Needle tip localization is documented for medial branch block procedures bilaterally targeting the L2, L3 and L4 medial branch is open (6 total procedures close). IMPRESSION: 6 total medial branch block procedures documented, bilateral evaluation. Dictated by: Jamin Harmon M.D. on 02/09/2020 at 12:52 Approved by: Jamin Harmno M.D. on 02/09/2020 at 12:53
[2020-02-09] MEDS: MIDAZOLAM 5 MG/5 ML VIAL IV (11:34)
[2020-02-09] MEDS: IOPAMIDOL 15 ML VIAL 3 ML INJ (11:47)
[2020-02-09] MEDS: BUPIVACAINE 0.5% (PF) VIAL 5 ML INJ (11:48)
[2020-02-09] MEDS: LIDOCAINE 1% 20 ML 10 ML INJ (11:48)
--- NOTE | 2020-02-09 11:53 | P.PCN_ITS ---
Date/Time/Diagnoses Date of procedure: 02/09/20 Time of procedure: 11:53 Pre-procedure diagnosis: 1. FACET ARTHROPATHY Post-procedure diagnosis: same Procedure Notes Procedure: 1. BILATERAL- L2, L3 and L4 DIAGNOSTIC MB BLOCKS with LA Anesthetic Indications: Heather is referred by Dr. Murray for treatment of Bilateral Axial LBP. Physician: Wilner Tee Total Fluoroscopy time (seconds): 13 Total sedation minutes: 14 Complications: none Procedure in detail & Post-procedure care: DESCRIPTION OF PROCEDURE Fluoroscopically guided, contrast-controlled bilateral L2, L3 and L4 medial branch blocks with 0.5cc of 0.5% Marcaine. Following review of allergy and review of potential side effects and complications, including, but not necessarily limited to, infection, allergic reaction, local tissue breakdown, nerve injury, paralysis, stroke and possible , the patient indicated that the patient understood and agreed to proceed. An informed consent document was signed by the patient, witnessed by a nurse, and placed in the patient's chart. After review of previous anaesthesic history and IV conscious sedation the patient was deemed safe to proceed with today's procedure with IV conscious sedation as ASA class II designation. Safety time-out was performed to confirm patient ID, procedure to be performed and site of procedure. IV sedation was accomplished with a combination of 3mg of Versed and 50mcg was administered by the RN after DO order, titrated to patient comfort during the course of the procedure while the patient remained responsive to all verbal commands In the prone position, following sterile prep and drape of the lumbar region, the right L2, L3 and L4 anatomical location of the medial branch of the dorsal ramus was identified fluoroscopically. Subsequently an anesthetic skin wheal using 1% lidocaine solution was initiated at each of the anatomical spots. Subsequently then a 22-gauge 3.5-inch spinal needle was atraumatically introduced and advanced under fluoroscopic guidance at each of the corresponding sites at the right L2, L3 and L4 MB. After negative aspiration, 0.2cc of Isovue 200 was injected, confirming placement without vascular or intrathecal uptake. Subsequently then 0.5cc of 0.5% Marcaine solution was injected at each of the corresponding sites at the right L2, L3 and L4 medial branch locations. The identical procedure was replicated on the left. The patient tolerated the procedure well without signs or symptoms of complications prior to transfer to the recovery area continued monitoring without incident. Post-procedure, the patient was monitored initiating provocative activities to measure the amount of relief from block of the facetogenic pain. The patient reported a VAS of 7 prior to the procedure and a post-procedure VAS of 1. It has been a pleasure to assist in the diagnostic and therapeutic care of your patient. POST OP INSTRUCTIONS The patient was provided with a Pain Log to complete over the next several hours and subsequent days prior to the patient's follow up with the ordering physician. If the patient has freight and passenger agent relief to the solution applied, then they may be a candidate for medial branch rhizotomy. The patient is aware, was provided, once again, with a Pain Log and will follow up with the referring physician for review and clinical correlation
== END 2020-02-09 12:23 | disposition home or self-care (01) ==
LOC: RAD 10:16
PROVIDERS: Family Provider Family Medicine; PCP Family Medicine; Referring Provider Family Medicine; Visit Provider Physical Medicine & Rehabilitation
DX: M47.816 Spondylosis without myelopathy or radiculopathy, lumbar region (principal); M54.5 Low back pain
CPT/HCPCS: 64493; 64494; 99152; J2250; J3010

== ENCOUNTER → 2020-06-21 09:22 | Outpatient (CLI) | payer MEDICARE, OTHER, SELFPAY ==
[2020-06-21 09:45] LABS: Add Manual Diff / Slide Review NO; Basophils Absolute Auto 100 /uL (0-100); Basophils Percent Auto 1.3 % (0-2); Eosinophils Absolute Auto 300 /uL (0-450); Eosinophils Percent Auto 3.9 % (2-4); Hemoglobin 12.3 g/dL (12.0-16.0); Lymphocytes Absolute Auto 1700 /uL (1100-4500); Lymphocytes Percent Auto 23.6 % (25-40); Mean Corpuscular HGB Conc 33.3 % (30-36); Mean Corpuscular Hemoglobin 31.7 PG (26-34); Mean Corpuscular Volume 95.2 fL (80-100); Monocytes Absolute Auto 500 /uL (0-900); Monocytes Percent Auto 6.4 % (3-14); Neutrophils Absolute Auto 4800 /uL (1500-7000); Neutrophils Percent Auto 64.8 % (50-75); Platelet Count 272 X10^3/uL (150-400); Red Blood Cell Count 3.88 X10^6/uL (4.0-5.2); Red Cell Distribution Width 12.6 % (11.6-14.8); White Blood Cell Count 7.4 X10^3/uL (4.5-11.0)
[2020-06-21 10:10] LABS: Alanine Aminotransferase 28 IU/L (<35); Albumin 4.3 g/dL (3.5-5.0); Albumin Globulin Ratio 1.5 (1.0-2.8); Alkaline Phosphatase 83 U/L (38-126); Aspartate Aminotransferase 27 IU/L (14-36); BUN Creatinine Ratio 19.4 (6-22); Bilirubin Total 0.5 mg/dL (0.2-1.3); Blood Urea Nitrogen 28 mg/dL (7-17); Calcium 10.7 mg/dL (8.4-10.2); Carbon Dioxide 24 mmol/L (22-32); Chloride 106 mmol/L (98-107); Cholesterol 157 mg/dL (140-199); Estimated Glomerular Filt Rate 35.5 mL/min (>60); Globulin 2.9 g/dL (1.7-4.1); Glucose 106 mg/dL (80-110); HDL Cholesterol 47 mg/dL (40-60); HEMOLYSIS < 15 (0-50); LDL Cholesterol Calculated 77 mg/dL (<100); Potassium 5.3 mmol/L (3.4-5.1); Sodium 137 mmol/L (137-145); Total Protein 7.2 g/dL (6.3-8.2); Triglycerides 164 mg/dL (35-150)
[2020-06-21 10:26] LABS: Free T4, Direct Thyroxine 0.77 ng/dL (0.78-2.19)
[2020-06-21 10:40] LABS: Thyroid Stimulating Hormone 4.35 uIU/mL (0.47-4.68)
== END ==
PROVIDERS: Family Provider Family Medicine; PCP Family Medicine; Referring Provider Family Medicine; Visit Provider Family Medicine
DX: E21.3 Hyperparathyroidism, unspecified (principal); E78.2 Mixed hyperlipidemia; N18.9 Chronic kidney disease, unspecified
CPT/HCPCS: 36415; 80053; 80061; 84439; 84443; 85025

== ENCOUNTER → 2020-08-02 10:02 | Outpatient (CLI) | payer MEDICARE, OTHER, SELFPAY ==
[2020-08-02 11:54] LABS: Free T4, Direct Thyroxine 1.51 ng/dL (0.78-2.19)
[2020-08-02 12:08] LABS: Thyroid Stimulating Hormone 0.285 uIU/mL (0.47-4.68)
== END ==
PROVIDERS: Family Provider Family Medicine; PCP Family Medicine; Referring Provider Family Medicine; Visit Provider Family Medicine
DX: E03.9 Hypothyroidism, unspecified (principal)
CPT/HCPCS: 36415; 84439; 84443

== ENCOUNTER → 2021-01-03 11:45 | Outpatient (CLI) | payer MEDICARE, OTHER, SELFPAY ==
--- NOTE | 2021-01-03 | DI.MG.S_ITS ---
BILATERAL DIGITAL SCREENING MAMMOGRAM 3D/2D WITH CAD: 01/03/2021 CLINICAL: Routine screening. Family history of breast cancer. Comparison is made to exams dated: 12/15/2019 mammogram, 12/11/2018 mammogram, and 12/04/2017 mammogram - [facility]. The tissue of both breasts is heterogeneously dense. This may lower the sensitivity of mammography. Current study was also evaluated with a Computer Aided Detection (CAD) system. There are benign calcifications in both breasts. There also are benign post operative findings in the left breast. No significant masses, calcifications, or other findings are seen in either breast. There has been no significant interval change. IMPRESSION: BENIGN There is no mammographic evidence of malignancy. A 1 year screening mammogram is recommended. This exam was interpreted at Station ID: [id number]. NOTE: For mammograms, a report in lay terms will be sent to the patient. Approximately 15% of breast malignancies will not be visualized mammographically. In the management of a palpable breast mass, a negative mammogram must not discourage biopsy of a clinically suspicious lesion. Electronically Signed By: Ronaldo mccann/[email or web address]:01/03/2021 14:59:35 letter sent: Normal Exam ACR BI-RADS Category 2: Benign Finding(s) 3342F
== END ==
PROVIDERS: Family Provider Family Medicine; PCP Family Medicine; Referring Provider Family Medicine; Visit Provider Family Medicine
DX: Z12.31 Encounter for screening mammogram for malignant neoplasm of breast (principal)
CPT/HCPCS: 77063; 77067

== ENCOUNTER → 2021-01-17 13:51 | Outpatient (CLI) | payer MEDICARE, OTHER, SELFPAY ==
[2021-01-17 14:12] LABS: COVID19 -Nasal RAPID Negative (Negative)
== END ==
PROVIDERS: Family Provider Family Medicine; PCP Family Medicine; Visit Provider Nurse Practitioner Family
DX: Z20.822 Contact with and (suspected) exposure to COVID-19 (principal); R05.9 Cough, unspecified; R09.81 Nasal congestion; R53.83 Other fatigue
CPT/HCPCS: 87635

== ENCOUNTER → 2021-01-27 08:28 | Outpatient (CLI) | payer MEDICARE, OTHER, SELFPAY ==
[2021-01-27 09:03] LABS: Add Manual Diff / Slide Review NO; Basophils Absolute Auto 100 /uL (0-100); Basophils Percent Auto 0.8 % (0-2); Eosinophils Absolute Auto 200 /uL (0-450); Eosinophils Percent Auto 3.1 % (2-4); Hematocrit 39.1 % (36-46); Hemoglobin 12.7 g/dL (12.0-16.0); Lymphocytes Absolute Auto 2200 /uL (1100-4500); Lymphocytes Percent Auto 31.7 % (25-40); Mean Corpuscular HGB Conc 32.4 % (30-36); Mean Corpuscular Volume 95.7 fL (80-100); Monocytes Absolute Auto 500 /uL (0-900); Monocytes Percent Auto 6.7 % (3-14); Neutrophils Absolute Auto 4000 /uL (1500-7000); Neutrophils Percent Auto 57.7 % (50-75); Platelet Count 258 X10^3/uL (150-400); Red Blood Cell Count 4.09 X10^6/uL (4.0-5.2); Red Cell Distribution Width 13.9 % (11.6-14.8)
[2021-01-27 09:41] LABS: Alanine Aminotransferase 18 IU/L (<35); Albumin 4.5 g/dL (3.5-5.0); Albumin Globulin Ratio 1.4 (1.0-2.8); Alkaline Phosphatase 79 U/L (38-126); Aspartate Aminotransferase 23 IU/L (14-36); BUN Creatinine Ratio 20.5 (6-22); Bilirubin Total 0.5 mg/dL (0.2-1.3); Blood Urea Nitrogen 31 mg/dL (7-17); Calcium 10.7 mg/dL (8.4-10.2); Carbon Dioxide 22 mmol/L (22-32); Chloride 108 mmol/L (98-107); Cholesterol 151 mg/dL (140-199); Estimated Glomerular Filt Rate 33.6 mL/min (>60); Globulin 3.2 g/dL (1.7-4.1); Glucose 110 mg/dL (80-110); HDL Cholesterol 39 mg/dL (40-60); HEMOLYSIS < 15 (0-50); LDL Cholesterol Calculated 77 mg/dL (<100); Potassium 4.6 mmol/L (3.4-5.1); Sodium 141 mmol/L (137-145); Total Protein 7.7 g/dL (6.3-8.2); Triglycerides 176 mg/dL (35-150)
[2021-01-27 10:01] LABS: Free T4, Direct Thyroxine 1.16 ng/dL (0.78-2.19)
[2021-01-27 10:15] LABS: Thyroid Stimulating Hormone 1.05 uIU/mL (0.47-4.68)
[2021-01-28 07:33] LABS: Calcium 10.2 mg/dL (8.7-10.3); Parathyroid Hormone, Intact 75 pg/mL (15-65)
== END ==
PROVIDERS: Family Provider Family Medicine; PCP Family Medicine; Referring Provider Family Medicine; Visit Provider Family Medicine
DX: E03.9 Hypothyroidism, unspecified (principal); E21.3 Hyperparathyroidism, unspecified; I10 Essential (primary) hypertension; N18.32 Chronic kidney disease, stage 3b
CPT/HCPCS: 36415; 80053; 80061; 82310; 83970; 84439; 84443; 85025

== ENCOUNTER → 2021-02-02 09:12 | Outpatient (CLI) | payer MEDICARE, OTHER, SELFPAY ==
--- NOTE | 2021-02-02 09:13 | DI.MRI.S_ITS ---
PROCEDURE: MR HEAD/BRAIN WO CON INDICATIONS: Progressive daily headaches history of cervical foraminal st TECHNIQUE: Non-contrast axial T1 spin echo, axial T2 fast spin echo, sagittal and axial FLAIR, coronal T2 fast spin echo, axial gradient echo, axial diffusion and ADC through the brain. COMPARISON: [facility], RG, MRI BRAIN (IAC) W/WO CONTRAST, 05/13/2003, 11:18. [facility], CT, CT HEAD/BRAIN WO CON, 12/06/2018, 20:56. [facility], MR, MR HEAD/BRAIN WO CON, 08/20/2017, 16:32. FINDINGS: Image quality: Excellent. CSF spaces: Ventricles appear symmetric in size and shape. Basal cisterns are patent. No extra-axial fluid collections. Brain: No intracranial bleeds or mass effects. There is cerebral volume loss for age. There are periventricular and deep white matter chronic small vessel ischemic changes. Brainstem appears normal. Diffusion-weighted images show no acute ischemic insults. No chronic ischemic insults. Normal intravascular flow voids are present. Skull and face: Calvarial bone marrow is normal in signal. Orbits are normal. Note is made of bilateral lens replacements. Incidental note is made of hyperostosis frontalis. This is not considered to be pathologic in a woman of this age. Sinuses: Sinuses and mastoids are clear. IMPRESSION: Unremarkable intracranial study, without an imaging explanation found for the patient's presenting history of headache. Incidental note is made of: Brain parenchymal volume loss Chronic small vessel ischemic change Bilateral lens replacements Hyperostosis frontalis Dictated by: Quan Delatorre M.D. on 02/02/2021 at 9:49 Approved by: Quan Delatorre M.D. on 02/02/2021 at 9:52
--- NOTE | 2021-02-02 09:13 | DI.MRI.S_ITS ---
PROCEDURE: MR CERVICAL SPINE WO CON INDICATIONS: Progressive daily headaches history of cervical foraminal st TECHNIQUE: Noncontrast sagittal T1 spin echo and T2 fast spin echo, sagittal STIR, foraminal oblique sagittal T2 fast spin echo, and axial gradient echo or T2 fast spin echo through the cervical spine. COMPARISON: [facility], MR, MR CERVICAL SPINE WO CON, 01/06/2019, 12:49. [facility], MR, MR CERVICAL SPINE WO CON, 02/25/2018, 8:12. FINDINGS: Image quality: Excellent. Alignment and Curvature: There is normal bony alignment. Bone Marrow: Marrow demonstrates normal overall signal. Mild reactive signal throughout the endplates of the cervical and upper thoracic spine. Spinal Cord: Visualized spinal cord has normal size and signal. No cerebellar tonsillar herniation. Paraspinous Soft Tissues: No paravertebral masses. Prevertebral soft tissues are normal in thickness. C2-C3: Moderate disc desiccation. Mild diffuse disc bulge with superimposed central protrusion. Mild facet and uncovertebral hypertrophy. Mild canal stenosis. Mild left greater than right foraminal stenosis. No significant change. C3-C4: Moderate disc desiccation. Mild disc height loss and diffuse disc bulge with superimposed right paracentral protrusion. Mild facet and uncovertebral hypertrophy bilaterally. Moderate canal stenosis. Mild bilateral foraminal stenosis. No significant change. C4-C5: Moderate disc desiccation. Mild disc height loss and diffuse disc bulge with superimposed small central protrusion. Mild facet and uncovertebral hypertrophy bilaterally. Moderate canal stenosis. Moderate right greater than left foraminal stenosis. No significant change. C5-C6: Moderate disc desiccation. Mild disc height loss and diffuse disc bulge with superimposed central protrusion. Mild facet and uncovertebral hypertrophy bilaterally. Moderate canal stenosis. Mild left and moderate right foraminal stenosis. No significant change. C6-C7: Moderate disc desiccation and disc height loss. Mild diffuse disc bulge. Mild facet and uncovertebral hypertrophy. Mild canal stenosis. Mild bilateral foraminal stenosis. No significant change. C7-T1: Moderate disc height loss and desiccation. No significant canal, or foraminal stenosis. No significant change. IMPRESSION: 1. Multilevel degenerative disc and facet disease, as well as uncovertebral hypertrophy. 2. Multilevel canal stenoses, worst at C3-C4, C4-C5, and C5-C6, where there are moderate canal stenoses. 3. Multilevel foraminal stenoses, worst at C4-C5 and C5-C6, where there are moderate foraminal stenoses as described above. Dictated by: Isabella Ta M.D. on 02/02/2021 at 10:21 Approved by: Isabella Ta M.D. on 02/02/2021 at 10:26
== END ==
PROVIDERS: Family Provider Family Medicine; PCP Family Medicine; Referring Provider Family Medicine; Visit Provider Family Medicine
DX: G44.86 Cervicogenic headache (principal); M48.02 Spinal stenosis, cervical region; M50.31 Other cervical disc degeneration, high cervical region; I12.9 Hypertensive chronic kidney disease with stage 1 through stage 4 chronic kidney disease, or unspecified chronic kidney disease; N18.32 Chronic kidney disease, stage 3b; M47.812 Spondylosis without myelopathy or radiculopathy, cervical region; E03.9 Hypothyroidism, unspecified; E21.3 Hyperparathyroidism, unspecified; G89.29 Other chronic pain
CPT/HCPCS: 70551; 72141

== ENCOUNTER 2021-03-08 11:07 | Emergency (ER) | payer MEDICARE, OTHER, SELFPAY ==
[2021-03-08] VITALS (12 sets, daily range): BP systolic 121–174; BP diastolic 47–74; PULSE 56–74; RESP 13–32; TEMP 36.6; O2SAT 94–100; BMI 25.2
--- NOTE | 2021-03-08 11:18 | DI.RAD.S_ITS ---
PROCEDURE: XR CHEST 1V INDICATIONS: Chest pain TECHNIQUE: One view of the chest was acquired. COMPARISON: None. FINDINGS: Surgical changes and devices: None. Lungs and pleura: Lungs are clear. No pleural effusions or pneumothorax. Mediastinum: Mediastinal contours appear normal. Heart size is normal. Bones and chest wall: No suspicious bony lesions. Overlying soft tissues appear unremarkable. IMPRESSION: No acute cardiopulmonary process demonstrated radiographically. Dictated by: Bernardino Ruano M.D. on 03/08/2021 at 10:57 Approved by: Bernardino Ruano M.D. on 03/08/2021 at 10:58
--- NOTE | 2021-03-08 11:32 | ED.DIZZY ---
HPI - Dizziness General Chief Complaint: Dizziness Stated Complaint: Low BP, Light headed, Nauseas Time Seen by Provider: 03/08/21 11:17 Source: patient Mode of arrival: Wheelchair Limitations: no limitations History of Present Illness HPI Narrative: This is a 76-year-old female comes emergency department with complaint of dizziness patient states she was at PT. She has been going to PT for chronic headaches for the past 2 years. She started PT about 6 weeks ago. They checked her blood pressure and saw that she was 130 initial laying flat but went to 104 systolic and standing was 115 systolic. Patient states she has had intermittent dizziness but states today is worse than. She has chronic headaches hers today is 2/10 which is low level for her. She states no new change in her typical headache pattern. She has not had any syncope. She does typically get lightheaded particularly when she gets up from a seated or lying position describes orthostatics symptoms for the past 18 months. She does not have any new numbness, tingling or weakness in her extremities. No speech issues. No sudden vision changes. She has had some mild nausea but no vomiting. She has had normal bowel movements. She denies any chest pain or pressure. No abdominal pain back or flank pain. She does note some shortness of breath for the past 2 weeks the very mild cough that is intermittent. She has got chronic nasal congestion. No fevers or chills new infectious type symptoms. She states she has had quite a bit of workup for her dizziness including head CTs and MRIs which have all been negative. She is on Xarelto daily for blood clots she had 1 on her leg and 1 on her upper extremity. She states they never figured out why she has these. She is also on medication for hypertension and dyslipidemia as well as muscle relaxer. Dr. Gerber is her primary care and was consulted by PT and patient was recommended to come to the ED for evaluation. Related Data Home Medications Medication Instructions Recorded Confirmed multivitamin-iron 9 mg-folic acid 1 tab PO Q DAY #0 03/20/11 02/06/21 400 mcg-calcium and minerals tablet (Thera M Plus (ferrous fumarate)) ferrous sulfate 325 mg (65 mg 325 mg PO DAILY tab 03/19/18 02/06/21 iron) tablet triamcinolone acetonide 0.1 % TOP 07/20/19 02/06/21 topical ointment aspirin 81 mg tablet,delayed 81 mg PO DAILY 06/20/20 02/06/21 release (Adult Low Dose Aspirin) cyclosporine 0.05 % eye drops in a 1 drp EYE-BOTH BID ea 06/20/20 02/06/21 dropperette Previous Rx's Medication Instructions Recorded disabled parking permit #1 each 10/06/19 tizanidine 2 mg tablet 2 mg PO TID PRN #60 tab 01/27/20 lisinopril 10 mg tablet See Rx Instructions .ROUTE 05/31/20 .COMPLEX #90 tab rivaroxaban 15 mg tablet (Xarelto) 15 mg PO DAILY #90 tab 06/20/20 rosuvastatin 5 mg tablet 5 mg PO DAILY #90 tab 07/08/20 citalopram 40 mg tablet See Rx Instructions .ROUTE 10/26/20 .COMPLEX #90 tab nifedipine 30 mg tablet,extended See Rx Instructions .ROUTE 12/29/20 release .COMPLEX #90 tab levothyroxine 88 mcg tablet 88 mcg PO DAILY #90 tab 02/06/21 Allergies Allergy/AdvReac Type Severity Reaction Status Date / Time tramadol Allergy Severe Anaphylaxis Verified 03/08/21 11:19 hydrocodone [HYDROCODONE] Allergy Intermediate NAUSEA / Verified 03/08/21 11:19 VOMITING Sulfa (Sulfonamide Allergy Mild Hives Verified 03/08/21 11:19 Antibiotics) [SULFA (SULFONAMIDE ANTIBIOTICS)] morphine [MORPHINE] AdvReac Mild Vomiting Verified 03/08/21 11:19 Review of Systems Review of Systems ROS Unobtainable: All systems reviewed & are unremarkable except as noted in HPI and below Patient History Medical History Acne Cataracts, bilateral (~2013) Chicken pox (~1948) Chronic anticoagulation Chronic headache Chronic kidney disease Facet arthropathy, lumbosacral Facial abrasion (~10/07/19) Foraminal stenosis of cervical region Fractures (~1977) Headache Hyperlipidemia Hyperparathyroidism Hypertension (~1999) Measles (~1953) Mumps (~1953) Paresthesia of left upper extremity Pruritic rash Surgical History Anesthesia History of cataract removal with insertion of prosthetic lens (~2013) Status post appendectomy Status post dilation and curettage Status post tonsillectomy and adenoidectomy Status post tubal ligation Family History Father Cancer Grandfather Heart disease Grandmother Stroke Mother Cancer Brother No problems noted. Grandfather No problems noted. Grandmother No problems noted. Social History Smoking Status: Never smoker alcohol intake: current (~1-2 small glasses of wine per month ) substance use type: does not use Smoking Status: Never smoker alcohol intake frequency: a few times a month Substance Use Type: does not use Exam Narrative Exam Narrative: GEN: well nourished, well appearing female, alert and oriented x 3, patient appears to be in mild distress. HEENT: Atraumatic, pupils are equal round reactive to light, extraocular movements are intact, nares are clear, no nystagmus, TMs are opaque, fluid bilaterally, slightly retracted with no erythema, bulge or loss of light reflex. There is no conjunctival pallor. Throat is clear without any exudates, erythema, tonsillar enlargement or uvular deviation, no facial droop. HEART: Regular rate and rhythm without murmur, clicks, rubs. Pulses are equal in upper and lower extremities LUNGS:Lungs clear to auscultation, no wheezes, rales, crackles, chest moves symmetrically, no tachypnea. No accessory muscle use. Patient speaks in full sentences. ABD:bowel sounds normal, soft, non-tender, no guarding, rebound, rigidity, no masses noted, no hepatosplenomegaly :No CVA tenderness MSCL: Non-tender, no muscle atrophy, muscles strength 5/5 upper and lower extremities, full range of motion, normal gait NEURO:CN 2-12 intact, sensation normal, finger nose finger test normal, heel grayson test normal, no dysarthria. SKIN: No rash, erythema or other skin changes. Initial Vital Signs Initial Vital Signs: Vital Signs Temperature 97.8 F 03/08/21 11:12 Pulse Rate 62 03/08/21 11:12 Respiratory Rate 15 03/08/21 11:12 Blood Pressure 174/74 H 03/08/21 11:12 Pulse Oximetry 100 03/08/21 11:12 Scores GCS Page coma scale eye opening: Spontaneous David coma scale verbal response: Orientated Page coma scale motor response: Obey commands David coma scale total score: 15 NIH Stroke Scale Level of Conciousness: Alert, keenly responsive Ask month/age: Answers both questions correctly. Open/close eyes, close hand: Performs both tasks correctly Best gaze horizontal: Normal Visual elder: No visual loss Facial palsy: Normal symetrical movement Left arm drift: No drift for full 10 sec Right arm drift: No drift for full 10 sec Left leg drift: No drift for full 5 sec Right leg drift: No drift for full 5 sec Limb ataxia: Absent Sensory on face/arms/legs: Normal, no sensory loss Best language: No aphasia, normal Dysarthria: Normal Extinction or inattention: No abnormality Total NIH Stroke scale score: 0 Course Orders Ordered: ED Orders 03/08/21 11:18 XR chest 1V Stat EKG-12 Lead Stat 03/08/21 11:25 Complete Blood Count AUTO DIFF Stat Comprehensive Metabolic Panel Stat Lipase Stat Magnesium Stat Partial Thromboplastin Time Stat Prothrombin Time INR Stat Troponin & CK Cardiac Panel Stat 03/08/21 11:26 COVID19 -Nasal swab/Pre-Proc Stat 03/08/21 11:28 BNP [NT-proBNP (BNP-Adult 18+)] Stat 03/08/21 11:41 CT head/brain wo con Stat 03/08/21 12:44 CT angio chest PE protocol Stat Discontinued Medications Acetaminophen (Acetaminophen 325 Mg Tablet) 975 mg PO NOW ONE Stop: 03/08/21 12:52 Last Admin: 03/08/21 12:59 Dose: 975 mg Documented by: IESHA Sodium Chloride (Normal Saline 0.9%) 1,000 mls @ 1,000 mls/hr IV BOLUS ONE Stop: 03/08/21 13:31 Last Infusion: 03/08/21 14:39 Dose: 0 mls/hr Documented by: Admin: 03/08/21 12:58 Dose: 1,000 mls/hr Documented by: IESHA Vital Signs Vital signs: Vital Signs - 8 hr 03/08/21 11:12 03/08/21 11:15 03/08/21 11:16 Temperature 97.8 F Pulse Rate 62 61 63 Respiratory Rate 15 18 Blood Pressure 174/74 H 174/74 H Pulse Oximetry 100 100 100 03/08/21 11:30 03/08/21 11:53 03/08/21 12:00 Temperature Pulse Rate 61 58 L 56 L Respiratory Rate 16 14 17 Blood Pressure 150/66 H Pulse Oximetry 94 100 99 03/08/21 12:30 03/08/21 13:16 03/08/21 13:17 Temperature Pulse Rate 57 L 74 68 Respiratory Rate 13 32 H 23 Blood Pressure 139/63 Pulse Oximetry 100 99 03/08/21 13:30 03/08/21 14:00 03/08/21 14:40 Temperature Pulse Rate 60 57 L 59 L Respiratory Rate 19 20 16 Blood Pressure 121/47 L 140/64 136/61 Pulse Oximetry 99 100 100 MDM - Dizziness Lab Data Result diagrams: 03/08/21 11:25 03/08/21 11:25 Labs: Lab Results 03/08/21 03/08/21 03/08/21 Range/Units 11:25 11:25 11:25 WBC 6.3 (4.5-11.0) X10^3/uL RBC 3.60 L (4.0-5.2) X10^6/uL Hgb 11.6 L (12.0-16.0) g/dL Hct 34.9 L (36-46) % MCV 96.9 (80-100) fL MCH 32.3 (26-34) PG MCHC 33.4 (30-36) % RDW 13.1 (11.6-14.8) % Plt Count 235 (150-400) X10^3/uL Neut % (Auto) 63.9 (50-75) % Lymph % (Auto) 24.6 L (25-40) % [place] % (Auto) 8.0 (3-14) % Eos % (Auto) 2.7 (2-4) % Baso % (Auto) 0.8 (0-2) % Neut # (Auto) 4000 (2214-3376) /uL Lymph # (Auto) 1500 (3988-2835) /uL [place] # (Auto) 500 (0-900) /uL Eos # (Auto) 200 (0-450) /uL Baso # (Auto) 0 (0-100) /uL PT 16.1 H (10.1-12.7) SECONDS INR 1.4 H (0.9-1.3) APTT 37 H D (26.4-36.2) SECONDS Sodium 140 (137-145) mmol/L Potassium 5.0 (3.4-5.1) mmol/L Chloride 107 (98-107) mmol/L Carbon Dioxide 25 (22-32) mmol/L BUN 32 H (7-17) mg/dL Creatinine 1.41 H (0.52-1.04) mg/dL Estimated GFR 36.3 L (>60) mL/min BUN/Creatinine Ratio 22.7 H (6-22) Glucose 98 (80-110) mg/dL Calcium 10.4 H (8.4-10.2) mg/dL Magnesium 2.3 (1.6-2.3) mg/dL Total Bilirubin 0.4 (0.2-1.3) mg/dL AST 23 (14-36) IU/L ALT 17 (<35) IU/L Alkaline Phosphatase 72 (38-126) U/L Total Creatine Kinase 32 (30-135) U/L CK-MB (CK-2) TNP CK-MB (CK-2) Rel Index TNP Troponin I < 0.012 (0.01-0.034) ng/mL NT-Pro-B Natriuret Pep (<450) pg/mL Total Protein 7.4 (6.3-8.2) g/dL Albumin 4.4 (3.5-5.0) g/dL Globulin 3.0 (1.7-4.1) g/dL Albumin/Globulin Ratio 1.5 (1.0-2.8) Lipase 158 (23-300) U/L SARS-CoV-2 (PCR) (Negative) 03/08/21 03/08/21 Range/Units 11:26 11:28 WBC (4.5-11.0) X10^3/uL RBC (4.0-5.2) X10^6/uL Hgb (12.0-16.0) g/dL Hct (36-46) % MCV (80-100) fL MCH (26-34) PG MCHC (30-36) % RDW (11.6-14.8) % Plt Count (150-400) X10^3/uL Neut % (Auto) (50-75) % Lymph % (Auto) (25-40) % [place] % (Auto) (3-14) % Eos % (Auto) (2-4) % Baso % (Auto) (0-2) % Neut # (Auto) (6298-3099) /uL Lymph # (Auto) (5745-6245) /uL [place] # (Auto) (0-900) /uL Eos # (Auto) (0-450) /uL Baso # (Auto) (0-100) /uL PT (10.1-12.7) SECONDS INR (0.9-1.3) APTT (26.4-36.2) SECONDS Sodium (137-145) mmol/L Potassium (3.4-5.1) mmol/L Chloride (98-107) mmol/L Carbon Dioxide (22-32) mmol/L BUN (7-17) mg/dL Creatinine (0.52-1.04) mg/dL Estimated GFR (>60) mL/min BUN/Creatinine Ratio (6-22) Glucose (80-110) mg/dL Calcium (8.4-10.2) mg/dL Magnesium (1.6-2.3) mg/dL Total Bilirubin (0.2-1.3) mg/dL AST (14-36) IU/L ALT (<35) IU/L Alkaline Phosphatase (38-126) U/L Total Creatine Kinase (30-135) U/L CK-MB (CK-2) CK-MB (CK-2) Rel Index Troponin I (0.01-0.034) ng/mL NT-Pro-B Natriuret Pep 412 (<450) pg/mL Total Protein (6.3-8.2) g/dL Albumin (3.5-5.0) g/dL Globulin (1.7-4.1) g/dL Albumin/Globulin Ratio (1.0-2.8) Lipase (23-300) U/L SARS-CoV-2 (PCR) Negative (Negative) Urine Dip Bedside Urine Glucose Negative Bedside Urine Bilirubin - Negative Bedside Urine Ketone - Negative Urine Specific [place] 1.015 Bedside Urine Occult Blood - Negative Bedside Urine pH 6.0 Bedside Urine Protein - Negative Bedside Urine Urobilinogen - Negative Bedside Urine Nitrite - Negative Bedside Urine Leukocytes - Negative Esterase Imaging Data CT scan - head: Radiologist's Impression: Heather Walker??76??F??1945 ? Allergy/Adv: tramadol, hydrocodone, Sulfa (Sulfonamide Antibiotics), morphine (More??) Close Chest CTA (Signed) Ana Napier - 03/08/[address] (Signed) Bernardino Ruano - 03/08/21 Chest X-Ray (Signed) Bernardino Ruano - 03/08/21 Cervical Spine MRI (Signed) Isabella Ta - 02/02/21 Brain MRI (Signed) Lourdes Delatorree - 02/02/21 Mammogram Screening (Signed) Ronaldo Tracy - 01/03/21 Outside DI 05/04/20 Facet Joint Injection X-Ray (Signed) Jamin Harmon - 02/09/20 DI Result CC 01/14/20 Mammogram Screening (Signed) Michell Aceves - 12/15/19 Injection Lumbar, Sacrum (Signed) Darren Villanueva - 12/01/19 Injection Lumbar, Sacrum (Signed) Jamin Harmon - 09/03/19 Abdomen/Pelvis CT (Signed) Jamin Harmon - 08/26/19 Lumbar Spine X-Ray (Signed) Darren Villanueva - 08/25/19 Injection Lumbar, Sacrum (Signed) Darren Villanueva - 06/09/19 Cervical/Thoracic Injection (Signed) Ana Napier - 04/07/19 Cervical Spine X-Ray (Signed) Darren Villanueva - 03/03/19 DI Result CC 02/06/19 Cervical Spine MRI (Signed) Reno Fuller - 01/06/19 Mammogram Screening (Signed) Giovany Guerrero - 12/11/18 DI Result CC 12/10/[address] (Signed) Ana Napier - 12/06/18 Peripheral Vascular Ultrasound (Signed) Isabella Ta - 09/28/18 Facet Joint Injection X-Ray (Signed) Jamin Harmon - 09/02/18 SI JT Injection (Signed) Jamin Harmon - 07/16/18 Injection Lumbar, Sacrum (Signed) Darren Villanueva - 05/13/18 Facet Joint Injection X-Ray (Signed) Jamin Harmon - 04/09/18 Carotid Doppler Study (Signed) Darern Villanueva - 03/03/18 Cervical Spine MRI (Signed) Isabella Ta - 02/25/18 Mammogram Screening (Signed) Ronaldo Tracy - 12/04/17 Launch?[address] [address] [address] Scan Report Signed Patient: Heather Walker MR#: [id number] : 1945 Acct:[id number] Age/Sex: 76 / F Date of Service: 03/08/21 Loc: ED Accession Number: [id number] ?? Procedure: CT head/brain wo con Ordering Provider: Sherri Herring D.O. PROCEDURE:? CT HEAD/BRAIN WO CON ? INDICATIONS:? dizziness, chronic headaches ? TECHNIQUE:? Noncontrast 4.5 mm thick angled axial sections acquired from the foramen magnum to the vertex, with coronal and sagittal reformats.? For radiation dose reduction, the following was used:? automated exposure control, adjustment of mA and/or kV according to patient size.? ? COMPARISON:? None. ? FINDINGS:? Image quality:? Excellent.? ? CSF spaces:? Basal cisterns are patent.? No extra-axial fluid collections.? The ventricles are symmetric in size and shape.? ? Brain:? No intracranial bleeds or masses.? There is cerebral volume loss for age, with resultant ventricular and sulcal prominence.? There are periventricular and deep white matter chronic small vessel ischemic changes.? There is intracranial internal carotid artery atherosclerosis.? ? Skull and face:? Calvarium and visualized facial bones appear intact, without suspicious lesions.? ? Sinuses:? Visualized sinuses and mastoids are clear.? ? IMPRESSION:? No acute intracranial abnormality. ? ? Dictated by: Bernardino Ruano M.D. on 03/08/2021 at 10:53 ? ? Approved by: Bernardino Ruano M.D. on 03/08/2021 at 10:54 CT scan - chest: Radiologist's Impression: Launch?[address] [address] [address] Scan Report Signed Patient: Heather Walker MR#: [id number] : 1945 Acct:[id number] Age/Sex: 76 / F Date of Service: 03/08/21 Loc: ED Accession Number: [id number] ?? Procedure: CT angio chest PE protocol Ordering Provider: Sherri Herring D.O. PROCEDURE:? CT ANGIO CHEST PE PROTOCOL ? INDICATIONS:? dizziness chronic, sob x 1 wk, hx dvts on thinners ? TECHNIQUE:? After the administration of intravenous contrast, 2 mm thick sections acquired from the pulmonary apices to the posterior costophrenic angles.? 3-dimensional maximum intensity projection (MIP) coronal and sagittal reformats were then acquired through the thorax.? For radiation dose reduction, the following was used:? automated exposure control, adjustment of mA and/or kV according to patient size.? ? COMPARISON:? CT, PE STUDY (CTA CHEST), 02/21/2012, 20:09.? Located Within [facility], CT, CT ABDOMEN PELVIS WO/W CON, 08/26/2019, 10:38. ? FINDINGS:? Image quality:? Excellent.? ? Pulmonary arteries:? Pulmonary arteries are normal in size, and demonstrate no intraluminal filling defects to suggest central pulmonary embolism.? ? Lungs and pleura:? There are multiple lung nodules.? Personnel Clerks Supervisor nodules are listed in the following: ? Nodule 1:? 4 mm; right upper lobe; series 5, image 99; unchanged from 02/21/2012. Nodule 2:? 4 mm; right lower lobe; series 5, image 181, calcified and unchanged. Nodule 3:? 5 mm; left upper lobe; series 5, image 136; partially calcified and unchanged. Nodule 4:? 3 mm; lingula;? series 5, image 150; new. Nodule 5:? 4 mm; left lower lobe; series 5, image 207; new. ? Lungs are otherwise clear.? No pleural effusions or pneumothorax.? Central and peripheral airways are patent.? ? Mediastinum:? Heart size is normal, without pericardial effusion.? No mediastinal or hilar adenopathy.? Thoracic aorta is normal in caliber and enhancement.? Esophagus is normal in caliber.? Small hiatal hernia.? ? Bones and chest wall:? No suspicious bony lesions.? Ribs and thoracic spine appear intact throughout.? Thyroid gland is no.? No axillary or supraclavicular adenopathy.? There is a 1 cm nodule in the left breast ? Abdomen:? Visualized upper abdominal solid organs appear normal in the early arterial phase of enhancement.? ? IMPRESSION:? ? 1. No evidence for pulmonary embolism. 2. Multiple lung nodules are present.? Some nodules are calcified or unchanged, compatible with old granulomas.? Other nodules are new.? Please see enclosed follow-up recommendation. 3. There is a 1 cm nodule in the left breast.? Please correlate with findings on mammography and breast exam.? ? ? Fleischner Society criteria for SOLID lung nodule followup.? Nodule size (mm)Low-risk patientHigh-risk patient?4No follow-up neededFollow-up at 12 mo; if no change, no further follow-up>[id number] CT at 12 mo; if no change, no further follow-up needed.Initial follow-up CT at 6-12 mo, then 18-24 mo if no change.? >6-8Initial follow-up CT at 6-12 mo, then 18-24 mo if no change. Initial follow-up CT at 3-6 mo, then 9-12 mo and 24 mo if no change.? >8Follow-up CT at 3, 9, 24 mo.? Or PET and/or biopsy.Same as for low-risk pts.? Fleischner Society criteria for SUB-SOLID lung nodule followup.? Solitary pure ground-glass nodules5 mm or lessNo followup needed.? >5 mm3 mo follow-up CT to confirm persistence.? Then annual CT for 3 years.? Part-solid nodules3 mo follow-up CT to confirm persistence.? If persistent with solid component <5 mm, annual CT for at least 3 years.? If solid component is 5 mm or more, biopsy or surgical resection.? Consider PET-CT for lesions > 10 mm.? Multiple sub-solid nodulesPure ground glass nodules [address] at 2 and 4 years.? Pure ground glass nodules >5 mm without dominant lesion.? [address] to confirm persistence, then annual followup CT for at least 3 years.? Dominant nodule(s) with part-solid or solid component.? [address] to confirm persistence.? If persistent, consider biopsy or surgical resection, francisco javier if lesions have >5 mm solid component.? Dictated by: Valeria Napier M.D. on 03/08/2021 at 13:08 ? ? Approved by: Valeria Napier M.D. on 03/08/2021 at 13:24? ECG Data Attestation: I personally reviewed and interpreted this ECG as follows: Prior ECG tracings: available for review Interpretation: Sinus rhythm rate of 61 WV 202, QRS 86 and QTC of 422. No acute ST changes appreciated. Patient has prior from 09/17/2018 which appears similar. MDM Narrative Medical decision making narrative: This is a 76-year-old female comes emergency department from rehab. She states that she was feeling dizzy today. She has intermittent dizziness and chronic persistent headaches. Patient states that her dizziness was worse today. They did blood pressures and she was 108 while sitting. She has a list of blood pressures that ranged from 170s to 90s over the past several months. Patient head CT, labs do not show any major abnormalities other than some mild hypercalcemia. Patient did have her parathyroid removed and has been much higher in the past. She was given some fluids. She feels better here in the department she did have a headache which went somewhat worsened was given Tylenol. Patient does have a history of blood clots so angiography was obtained although she is appropriately anticoagulated. This was negative but showed multiple pulmonary nodules. We discussed his findings and that she needs repeat imaging in 3 months. She does not have any changes consistent with stroke. Acute vertigo, cardiac or other pulmonary causes of her symptoms today. Was feeling improved although not completely resolved in her symptoms and plan for discharge home. Discharge Plan Departure Patient Disposition: Home Clinical Impression: Dizziness Activity Restrictions/Additional Instructions: Your calcium level today is slightly elevated a 10.4. This is lower than her prior visits in September and January of 2020. Your labs are otherwise reassuring, your imaging today does show multiple pulmonary nodules and it is recommended that you have a repeat CT of her chest in 3 months as you have several nodules in her lungs. Please follow-up with your physician this week for recheck. Please return if you are having new or worsening symptoms, passing out, changes to your headaches that are new, new numbness, weakness difficulty with speech, persistent vomiting, new chest pain or shortness of breath or other new or concerning symptoms. Prescriptions: No Action onsizgdt-zklz-HN-calcium-mins [Thera M Plus (ferrous fumarat)] 1 EACH tablet 1 tab PO Q DAY Qty: 0 0RF lisinopril 10 mg tablet See Rx Instructions .ROUTE .COMPLEX Qty: 90 2RF Dose Instruction: TAKE 1 TABLET BY MOUTH ONCE DAILY Rx Instructions: TAKE 1 TABLET BY MOUTH ONCE DAILY rosuvastatin 5 mg tablet 5 mg PO DAILY Qty: 90 3RF citalopram 40 mg tablet See Rx Instructions .ROUTE .COMPLEX Qty: 90 3RF Dose Instruction: TAKE 1 TABLET BY MOUTH DAILY Rx Instructions: TAKE 1 TABLET BY MOUTH DAILY nifedipine 30 mg tablet extended release See Rx Instructions .ROUTE .COMPLEX Qty: 90 2RF Dose Instruction: TAKE 1 TABLET BY MOUTH DAILY Rx Instructions: TAKE 1 TABLET BY MOUTH DAILY levothyroxine 88 mcg tablet 88 mcg PO DAILY Qty: 90 3RF (DME) disabled parking permit See Rx Instructions .ROUTE .MEDSUPPLY Qty: 1 0RF Rx Instructions: As directed. patient qualifies for disabled parking as per attached form. Xarelto 15 mg tablet 15 mg PO DAILY Qty: 90 2RF aspirin [Adult Low Dose Aspirin] 81 mg tablet,delayed release (DR/EC) 81 mg PO DAILY 0RF Restasis 0.05 % dropperette 1 drp EYE-BOTH BID 0RF tizanidine 2 mg tablet 2 mg PO TID PRN (Reason: muscle spasticity) Qty: 60 1RF ferrous sulfate 325 mg (65 mg iron) tablet 325 mg PO DAILY 0RF triamcinolone acetonide 0.1 % ointment TOP 0RF Referrals: Vicente Clark MD [Physician] - Zaki Gerber DO [Primary Care Provider] -
[2021-03-08 11:40] LABS: Add Manual Diff / Slide Review NO; Basophils Absolute Auto 0 /uL (0-100); Basophils Percent Auto 0.8 % (0-2); Eosinophils Absolute Auto 200 /uL (0-450); Eosinophils Percent Auto 2.7 % (2-4); Hematocrit 34.9 % (36-46); Hemoglobin 11.6 g/dL (12.0-16.0); Lymphocytes Absolute Auto 1500 /uL (1100-4500); Lymphocytes Percent Auto 24.6 % (25-40); Mean Corpuscular HGB Conc 33.4 % (30-36); Mean Corpuscular Hemoglobin 32.3 PG (26-34); Mean Corpuscular Volume 96.9 fL (80-100); Monocytes Absolute Auto 500 /uL (0-900); Neutrophils Absolute Auto 4000 /uL (1500-7000); Neutrophils Percent Auto 63.9 % (50-75); Platelet Count 235 X10^3/uL (150-400); Red Cell Distribution Width 13.1 % (11.6-14.8); White Blood Cell Count 6.3 X10^3/uL (4.5-11.0)
--- NOTE | 2021-03-08 11:41 | DI.CT.S_ITS ---
PROCEDURE: CT HEAD/BRAIN WO CON INDICATIONS: dizziness, chronic headaches TECHNIQUE: Noncontrast 4.5 mm thick angled axial sections acquired from the foramen magnum to the vertex, with coronal and sagittal reformats. For radiation dose reduction, the following was used: automated exposure control, adjustment of mA and/or kV according to patient size. COMPARISON: None. FINDINGS: Image quality: Excellent. CSF spaces: Basal cisterns are patent. No extra-axial fluid collections. The ventricles are symmetric in size and shape. Brain: No intracranial bleeds or masses. There is cerebral volume loss for age, with resultant ventricular and sulcal prominence. There are periventricular and deep white matter chronic small vessel ischemic changes. There is intracranial internal carotid artery atherosclerosis. Skull and face: Calvarium and visualized facial bones appear intact, without suspicious lesions. Sinuses: Visualized sinuses and mastoids are clear. IMPRESSION: No acute intracranial abnormality. Dictated by: Bernardino Ruano M.D. on 03/08/2021 at 10:53 Approved by: Bernardino Ruano M.D. on 03/08/2021 at 10:54
[2021-03-08 11:44] LABS: INR 1.4 (0.9-1.3); Prothrombin Time 16.1 SECONDS (10.1-12.7)
[2021-03-08 11:46] LABS: PTT Partial Thromboplastin Tim 37 SECONDS (26.4-36.2)
[2021-03-08 11:55] LABS: Alanine Aminotransferase 17 IU/L (<35); Albumin 4.4 g/dL (3.5-5.0); Albumin Globulin Ratio 1.5 (1.0-2.8); Alkaline Phosphatase 72 U/L (38-126); Aspartate Aminotransferase 23 IU/L (14-36); BUN Creatinine Ratio 22.7 (6-22); Bilirubin Total 0.4 mg/dL (0.2-1.3); Blood Urea Nitrogen 32 mg/dL (7-17); Calcium 10.4 mg/dL (8.4-10.2); Carbon Dioxide 25 mmol/L (22-32); Chloride 107 mmol/L (98-107); Creatine Kinase 32 U/L (30-135); Estimated Glomerular Filt Rate 36.3 mL/min (>60); Glucose 98 mg/dL (80-110); HEMOLYSIS < 15 (0-50); Lipase 158 U/L (23-300); Magnesium 2.3 mg/dL (1.6-2.3); Sodium 140 mmol/L (137-145); Total Protein 7.4 g/dL (6.3-8.2)
[2021-03-08 12:06] LABS: Troponin I < 0.012 ng/mL (0.01-0.034)
[2021-03-08 12:06] LABS: COVID19 -Nasal RAPID Negative (Negative)
[2021-03-08 12:29] LABS: NT-proBNP (BNP-Adult 18+) 412 pg/mL (<450)
--- NOTE | 2021-03-08 12:44 | DI.CT.S_ITS ---
PROCEDURE: CT ANGIO CHEST PE PROTOCOL INDICATIONS: dizziness chronic, sob x 1 wk, hx dvts on thinners TECHNIQUE: After the administration of intravenous contrast, 2 mm thick sections acquired from the pulmonary apices to the posterior costophrenic angles. 3-dimensional maximum intensity projection (MIP) coronal and sagittal reformats were then acquired through the thorax. For radiation dose reduction, the following was used: automated exposure control, adjustment of mA and/or kV according to patient size. COMPARISON: CT, PE STUDY (CTA CHEST), 02/21/2012, 20:09. [facility], CT, CT ABDOMEN PELVIS WO/W CON, 08/26/2019, 10:38. FINDINGS: Image quality: Excellent. Pulmonary arteries: Pulmonary arteries are normal in size, and demonstrate no intraluminal filling defects to suggest central pulmonary embolism. Lungs and pleura: There are multiple lung nodules. Line Helper nodules are listed in the following: Nodule 1: 4 mm; right upper lobe; series 5, image 99; unchanged from 02/21/2012. Nodule 2: 4 mm; right lower lobe; series 5, image 181, calcified and unchanged. Nodule 3: 5 mm; left upper lobe; series 5, image 136; partially calcified and unchanged. Nodule 4: 3 mm; lingula; series 5, image 150; new. Nodule 5: 4 mm; left lower lobe; series 5, image 207; new. Lungs are otherwise clear. No pleural effusions or pneumothorax. Central and peripheral airways are patent. Mediastinum: Heart size is normal, without pericardial effusion. No mediastinal or hilar adenopathy. Thoracic aorta is normal in caliber and enhancement. Esophagus is normal in caliber. Small hiatal hernia. Bones and chest wall: No suspicious bony lesions. Ribs and thoracic spine appear intact throughout. Thyroid gland is no. No axillary or supraclavicular adenopathy. There is a 1 cm nodule in the left breast Abdomen: Visualized upper abdominal solid organs appear normal in the early arterial phase of enhancement. IMPRESSION: 1. No evidence for pulmonary embolism. 2. Multiple lung nodules are present. Some nodules are calcified or unchanged, compatible with old granulomas. Other nodules are new. Please see enclosed follow-up recommendation. 3. There is a 1 cm nodule in the left breast. Please correlate with findings on mammography and breast exam. Fleischner Society criteria for SOLID lung nodule followup. Nodule size (mm)Low-risk patientHigh-risk patient?4No follow-up neededFollow-up at 12 mo; if no change, no further follow-up>6-2Yypjql-vm CT at 12 mo; if no change, no further follow-up needed.Initial follow-up CT at 6-12 mo, then 18-24 mo if no change. >6-8Initial follow-up CT at 6-12 mo, then 18-24 mo if no change. Initial follow-up CT at 3-6 mo, then 9-12 mo and 24 mo if no change. >8Follow-up CT at 3, 9, 24 mo. Or PET and/or biopsy.Same as for low-risk pts. Fleischner Society criteria for SUB-SOLID lung nodule followup. Solitary pure ground-glass nodules5 mm or lessNo followup needed. >5 mm3 mo follow-up CT to confirm persistence. Then annual CT for 3 years. Part-solid nodules3 mo follow-up CT to confirm persistence. If persistent with solid component <5 mm, annual CT for at least 3 years. If solid component is 5 mm or more, biopsy or surgical resection. Consider PET-CT for lesions > 10 mm. Multiple sub-solid nodulesPure ground glass nodules [address] at 2 and 4 years. Pure ground glass nodules >5 mm without dominant lesion. [address] to confirm persistence, then annual followup CT for at least 3 years. Dominant nodule(s) with part-solid or solid component. [address] to confirm persistence. If persistent, consider biopsy or surgical resection, francisco javier if lesions have >5 mm solid component. Dictated by: Valeria Napier M.D. on 03/08/2021 at 13:08 Approved by: Valeria Napier M.D. on 03/08/2021 at 13:24
[2021-03-08] MEDS: SODIUM CHLORIDE 0.9% 1,000 ML 1000 ML IV (12:58)
[2021-03-08] MEDS: ACETAMINOPHEN 325 MG TABLET 975 MG PO (12:59)
== END 2021-03-08 14:47 | disposition home or self-care (01) ==
PROVIDERS: Emergency Provider Emergency Medicine; Family Provider Family Medicine; PCP Family Medicine
DX: R42 Dizziness and giddiness (principal); E83.52 Hypercalcemia; I10 Essential (primary) hypertension
CPT/HCPCS: 36415; 70450; 71045; 71275; 80053; 81003; 82550; 83690; 83735; 83880; 84484; 85025; 85610; 85730; 87635; 93005; 96360; 96361; 99284; C9803; Q9967

== ENCOUNTER → 2021-04-14 14:09 | Outpatient (CLI) | payer MEDICARE, OTHER, SELFPAY ==
--- NOTE | 2021-04-14 14:12 | DI.US.S_ITS ---
ULTRASOUND OF LEFT BREAST: 04/14/2021 CLINICAL: Patient returns today to evaluate a focal asymmetry in the left breast. Comparison is made to exams dated: 04/14/2021 mammogram, 12/15/2019 mammogram, 01/03/2021 mammogram, 12/11/2018 mammogram, 12/04/2017 mammogram, and 12/03/2016 mammogram - [facility]. Color flow and real-time ultrasound of the left breast were performed. Knowles scale images of the real-time examination were reviewed. There is a benign 1.1 cm x 1.1 cm x 0.8 cm cyst in the left breast at 3 o'clock posterior depth 1 cm from the nipple. There also is a benign 0.4 cm x 0.4 cm x 0.3 cm oval cyst in the left breast at 2 o'clock posterior depth 1 cm from the nipple. IMPRESSION: BENIGN There is no sonographic evidence of malignancy. The 1.1 cm x 1.1 cm x 0.8 cm cyst in the left breast at 3 o'clock posterior depth is consistent with a simple cyst and is benign. The 0.4 cm x 0.4 cm x 0.3 cm oval cyst in the left breast at 2 o'clock posterior depth is consistent with a simple cyst and is benign. Return to annual mammogram screening schedule is recommended. Future imaging is recommended as follows: 01/04/2022 screening mammogram. This exam was interpreted at Station ID: [id number]. Electronically Signed By: Gus Love acr/:04/14/2021 15:34:54 letter sent: Normal Exam Ultrasound BI-RADS: 2 Benign
--- NOTE | 2021-04-14 14:23 | DI.MG.S_ITS ---
UNILATERAL LEFT DIGITAL DIAGNOSTIC MAMMOGRAM 3D/2D: 04/14/2021 CLINICAL: Left axillary nodule per MD order and per CT done 03/08/21. Comparison is made to exams dated: 01/03/2021 mammogram, 12/15/2019 mammogram, and 12/11/2018 mammogram - [facility]. The tissue of left breast is heterogeneously dense. This may lower the sensitivity of mammography. There is a 10 cm round asymmetry with a circumscribed margin in the left breast at 3 o'clock middle depth 5 cm from the nipple. No other significant masses or calcifications are seen in the breast. IMPRESSION: INCOMPLETE: NEEDS ADDITIONAL IMAGING EVALUATION The 10 cm round asymmetry in the left breast most likely is a cyst and is indeterminate. An ultrasound is recommended. Future imaging is recommended as follows: 01/04/2022 screening mammogram. This exam was interpreted at Station ID: [id number]. NOTE: For mammograms, a report in lay terms will be sent to the patient. Approximately 15% of breast malignancies will not be visualized mammographically. In the management of a palpable breast mass, a negative mammogram must not discourage biopsy of a clinically suspicious lesion. Electronically Signed By: Gus Love acr/:04/14/2021 14:50:58 ACR BI-RADS Category 0: Incomplete [id number]
== END ==
PROVIDERS: Family Provider Family Medicine; PCP Family Medicine; Referring Provider Family Medicine; Visit Provider Family Medicine
DX: R92.8 Other abnormal and inconclusive findings on diagnostic imaging of breast (principal); N60.02 Solitary cyst of left breast
CPT/HCPCS: 76642; 77065; G0279

== ENCOUNTER → 2021-04-17 07:49 | Outpatient (CLI) | payer MEDICARE, OTHER, SELFPAY ==
--- NOTE | 2021-04-17 07:50 | DI.ECHO.S_ITS ---
[facility] +---------+ : : [address] : [place] : : : : [id number] : : : : Phone: [phone]---------+ Echocardiogram Report + + :Name: TESSA COTTON Study Date: 04/17/2021 Height: 64 in : :[facility] ReadingLocation: Weight: 150 lb : : Gender: Female BSA: 1.7 m2 : :: 1945 Age: 76 yrs BP: 158/75 mmHg: :Reason For Study: Hypertension, SOB : :Ordering Physician: : :VICKY Performed By: Jose Carlos Caretr : :Referring: TESSY DOMINIQUE : + + Interpretation Summary Normal left ventricle size with ejection fraction 60-65%. The aortic valve is slightly calcified. Procedure: A two-dimensional transthoracic echocardiogram with color flow and Doppler was performed. The study quality was technically adequate. There is no prior echocardiogram noted for this patient. The patient was in normal sinus rhythm during the exam. Left Ventricle: The left ventricle is normal in size and wall thickness. The ejection fraction is estimated to be 60-65%. There are no focal wall motion abnormalities. Right Ventricle: The right ventricle is normal in size and function. Atria: Both atria are normal in size. There is no Doppler evidence for an interatrial shunt. Mitral Valve: The mitral valve is normal. There is trace mitral regurgitation. Aortic Valve: The aortic valve is trileaflet. The aortic valve opens well. The aortic valve is slightly calcified. No aortic regurgitation is present. Tricuspid Valve: The tricuspid valve is normal. There is trace tricuspid regurgitation. Pulmonary artery pressures cannot be estimated because of the lack of a measurable TR jet velocity but the IVC suggests a CVP of around 3 mmHg. Pulmonic Valve: The pulmonic valve is normal in structure and function. Great Vessels: The aortic root is normal size. The ascending aorta is normal in size. The aortic arch is normal in size. The IVC is of normal diameter and collapses greater than 50% with a sniff. This suggests a low right atrial pressure of 3 mm Hg. Pericardium/ Pleura There is no pericardial effusion. There is no pleural effusion. MMode/2D Measurements & Calculations LVIDd: 4.1 cm LVOT diam: 1.8 cm LVIDs: 2.7 cm Ao root diam: 3.0 cm FS: 34.1 % asc Aorta Diam: 3.5 cm IVSd: 0.80 cm Ao Arch Diam (Prox Trans): 2.6 cm LVPWd: 0.90 cm LV hopkins. diameter/BSA (cm/m^2): 2.4 LV sys. diameter/BSA (cm/m^2): 1.6 LA A2 area: 18.4 cm2 RA long axis: 4.2 cm LA A4 area: 18.6 cm2 LA length (vol): 5.3 cm LA vol: 55.2 ml LA vol index: 32.0 ml/m2 LVLs ap4: 5.8 cm LVLd ap2: 7.6 cm LVLs ap2: 6.4 cm TAPSE_phl: 2.1 cm Doppler Measurements & Calculations Ao V2 max: 141.0 cm/sec LVOT Max Samir: 125.0 cm/sec Ao V2 mean: 103.0 cm/sec LV V1 max P.2 mmHg Ao max P.0 mmHg LV V1 VTI: 29.4 cm Ao mean P.0 mmHg BUBBA(I,D): 2.1 cm2 Ao V2 VTI: 36.1 cm BUBBA(V,D): 2.3 cm2 sev ratio: 0.81 BUBBA indexed to BSA (cm^2/m^2): 1.2 MV E max samir: 83.4 cm/sec TR max samir: 181.9 cm/sec MV A max samir: 106.0 cm/sec TR max P.2 mmHg MV E/A: 0.79 PA V2 max: 69.2 cm/sec Med Peak E' Samir: 6.7 cm/sec PA V2 mean: 57.8 cm/sec E/E' med: 12.5 PA mean P.0 mmHg Lat Peak E' Samir: 11.0 cm/sec PA pr(Accel): 33.1 mmHg E/E' lat: 7.6 E/e' average: 10.0 MV dec time: 0.35 sec SV(LVOT): 74.8 ml AV VR_phl: 0.89 BUBBA(VTI)/BSA_phl: 1.2 MV P1/2t-pr_phl: 104.0 msec Electronically signed by: Star Nunez on Reading Physician:04/17/2021 10:24 AM
== END ==
PROVIDERS: Family Provider Family Medicine; PCP Family Medicine; Referring Provider Family Medicine; Visit Provider Family Medicine
DX: I10 Essential (primary) hypertension (principal); R06.02 Shortness of breath
CPT/HCPCS: 93306

== ENCOUNTER 2021-04-21 10:30 | Outpatient (RCR) | payer MEDICARE, OTHER, SELFPAY ==
--- NOTE | 2021-02-07 13:00 | PT.OIE ---
Current Diagnoses Other chronic pain (02/07/21) Spinal stenosis, cervical region (02/07/21) Headache, unspecified (02/07/21) Past Medical History (Last Updated 02/06/21 @ 12:04 by Zaki Gerber DO) Acne Cataracts, bilateral (~2013) Chicken pox (~1948) Chronic anticoagulation Chronic headache Chronic kidney disease Facet arthropathy, lumbosacral Facial abrasion (~10/07/19) Foraminal stenosis of cervical region Fractures (~1977) Headache Hyperlipidemia Hyperparathyroidism Hypertension (~1999) Measles (~1953) Mumps (~1953) Paresthesia of left upper extremity Pruritic rash Past Surgical History (Last Reviewed 01/28/20 @ 23:57 by Cosme Her DO) Anesthesia History of cataract removal with insertion of prosthetic lens (~2013) Status post appendectomy Status post dilation and curettage Status post tonsillectomy and adenoidectomy Status post tubal ligation Visit Care Team Role Provider Type Zaki Gerber DO Attending Provider Physician Family Provider Primary Care Provider Referring Provider Specialty: [facility] Practice Address: [address] [place] [address], [facility] Email: [email or web address] Physical Therapy Initial Evaluation PT-OP-A Visit Information Start: 02/06/21 15:44 Freq: Status: Active Protocol: Document 02/07/21 10:33 MB (Rec: 02/07/21 10:54 MB [id number]) Out-Patient Physical Therapy Visit Information Visit Information Visit Type Initial Evaluation Visit Note Medicare, 04/26 before KX Visit Start Time 10:33 Visit Stop Time 11:15 Total Visit Minutes 42 Visit Number 1 Evaluation Information Evaluation Date 02/07/21 Precautions Precautions High fall risk PT-OP-B Current Condition Start: 02/06/21 15:44 Freq: Status: Active Protocol: Document 02/07/21 10:33 MB (Rec: 02/07/21 10:54 MB [id number]) Current Condition History of Current Condition Onset Date July 2017 Current Complaints Headaches and neck pain, falling History of Current Condition Pt reports increased imbalance for about 9 months. The doctor told her to increase her gait width. She has had increasing headache and neck pain. She is going to see a neurologist 03/14/21 and will ask about headache, neck and decreased memory. Her last fall that caused injury was two years ago and she scraped her left cheek. She has had controlled rolled falls d/t imbalance. She furniture walks . She lives alone. She has a friend who calls or visits everyday and she has a cottage behind her house and those people check on her often. Pt had gotten injections for her back from Dr. Tee in 2018 and 2018 and she had a short course of PT for her back in 2018. She did not think that is was helpful. In July of 2017, she had a fall down 5 steps and hit the right side of her face. She has scoliosis, pinched sciatic nerve and two disc herniations as well as arthritis. All the pain started then. Pt reports 8/10 posterior head and neck pain and LBP. Her headaches start in the back and radiate around to her eyes, sinuses, jaws and teeth . She does not have TMJ per an oral specialist. The eye pain gets bad. She has had no acute visual changes. She had cataracts removed years ago. Other PMH includes latex allergy, hearing aids, right calf DVT 2011, left distal UE DVT two years ago. Pt takes Xarelto. Last year, pt had parathyroid surgery, osteopenia. She states she has BP changes but she is not clear what kind of BP changes she has. Pt occ wakes up at night d/t headache pain. She sleeps on her sides or stomach with the other side propped up. Prior Treatments and Tests 02/02/21: cervical MRI: multilevel DDD and canal and foraminal stenosis worst at C3 -C4, C4-5, C5-6 02/02/21: MRI brain: unremarkable Treatment Goals Patient/Caregiver Goals To reduce the headaches PT-OP-C Subjective Start: 02/06/21 15:44 Freq: Status: Active Protocol: Document 02/07/21 10:33 MB (Rec: 02/07/21 10:54 MB [id number]) OP-PT Subjective Patient Comments Patient Comments See history of current condition PT-OP-J Posture/Palpation/Skin Start: 02/06/21 15:44 Freq: Status: Active Protocol: Document 02/07/21 10:33 MB (Rec: 02/07/21 13:00 MB [id number]) Posture Evaluation Comments Posture Comments Standing posture: rounded shoulder, Dowager's hump, increased thoracic kyphosis, anterior tilt pelvis, left shoulder higher, kyphoscoliosis PT-OP-K Range of Motion Start: 02/06/21 15:44 Freq: Status: Active Protocol: Document 02/07/21 10:33 MB (Rec: 02/07/21 13:00 MB [id number]) Cervical Spine Range of Motion Cervical Spine Active Testing Position Standing Flexion 35 Extension 22 Rotation Left 55 Rotation Right 60 Lateral Flexion Left 20 Lateral Flexion Right 30 Comments Thoracic rotation in sitting is mildly more limited to the left PT-OP-M Strength Start: 02/06/21 15:44 Freq: Status: Active Protocol: Document 02/07/21 10:33 MB (Rec: 02/07/21 13:00 MB [id number]) Shoulder Strength Shoulder Manual Muscle Testing Left Flexion 4 Good Abduction (C5) 5 Normal Right Flexion 4 Good Abduction (C5) 5 Normal Elbow/Forearm Strength Elbow and Forearm Manual Muscle Testing Left Flexion (C6) 4 Good Extension (C7) 5 Normal Pronation 4 Good Supination 4 Good Right Flexion (C6) 4 Good Extension (C7) 4 Good Pronation 4 Good Supination 4 Good PT-OP-Q Treatments Start: 02/06/21 15:44 Freq: Status: Active Protocol: Document 02/07/21 10:33 MB (Rec: 02/07/21 12:45 MB [id number]) Self-Care/Home Management Treatment Education Patient Education Body Mechanics,Fall Risk,Joint Protection,Safety Other Education Use of towel roll in pillow for cervical support, that sleeping on her stomach is not good for her neck, that given her imbalance and history of falls, getting up between midnight and 2 a.m. to feed her cat and drink water is not a safe idea, PT expresses PT concern about her fall risk and imbalance as pt does not seem to be initially too much concerned with it. Brief education about BP being votile--13 mmHg drop systolic today PT-OP-T Assessment and Plan Start: 02/06/21 15:44 Freq: Status: Active Protocol: Document 02/07/21 10:33 MB (Rec: 02/07/21 13:00 MB [id number]) Physical Therapy Assessment Rehab Potential Rehabilitation Potential Fair Evaluation Complexity Number of Personal Factors/Comorbidities 3 or More Number of Body Systems Impaired 4 or More Clinical Presentation at Evaluation Evolving Impairments Impairments Activity Tolerance,Balance, Functional Activities, Functional Mobility,Gait,Pain, Posture,ROM,Sensation,Soft Tissue Mobility,Strength, Transfers Other Impairments Personal factors include that pt lives at home alone and makes poor safety choices such as waking up with her cat between midnight and 2 a.m. to feed him because he is spoiled despite her imbalance and volatile BP, cognitive impairment and history of falls. Body systems affected include cognitive, neuromuscular, cardiac and musculoskeletal. Her clinical presentation is evolving to unstable. Other Concerns Fall Risk Yes Goals 4 Distribution Superintendent Goal (LTG) Pt will perform progressive HEP including headache self- care techniques, [place] breathing, flexibility, postural, balance and gait exercises with I to improve pain and safety by 04/09/21. LTG Duration 8 weeks 3 Distribution Superintendent Goal (LTG) Pt will gait train at least 1000 feet in 6 minutes with or without LRAD to improve community ambulation by 04/09/21 . LTG Duration 8 weeks 2 Distribution Superintendent Goal (LTG) Pt will perform WNLs on a standardized balance test to decrease fall risk by 04/09/21. LTG Duration 8 weeks 1 Distribution Superintendent Goal (LTG) Pt will deny falls for 2 months to decrease injury risk by 04/09/21. LTG Duration 8 weeks Assessment Summary Assessment Pt is a 75 y/o female presenting with progression of posterior neck and KAY pain since falling down the steps and striking her face in 2018. Pt presents with cognitive challenges, UE weakness, mild cervical ROM changes for her age and overall, poor safety awareness and choices at home. She has been sleeping on her stomach and gets up every night between midnight and 2 a .m. to feed her cat a snack because he is spoiled. PT is most concerned about this because pt is very unsteady and has had many falls and rolls per pt report. PT ed pt about safety d/t falls and pt con't to report that her KAY and neck pain are her biggest concerns. Her BP is volatile and she has a 13 mmHg systolic drop supine to stand today. She is symptomatic upon standing and states that she feels her overall weakness is d/t her BP. She reports taking two BP medications. Her BP and HR in LUE are: supine 127/ 59, 62; standing 114/60, 74; standing 1' 130/62, 66. Pt will benefit from PT for postural, manual and self-care interventions. Will teach LRAD and test balance and gait as well as run a MOCA cognitive screen. She might benefit from speech therapy consult for cognition. PT feels she at least as persistent concussive symptoms since blow to the head in 2018 and reports of another fall and injury to face in 2019 as well as numerous other rolls. A life alert button may also be beneficial. Physical Therapy Plan Frequency and Duration Frequency of Treatment 2x/Week Duration of Treatment 8 weeks Plan of Care Start Date 02/07/21 Plan of Care End Date 04/10/21 Therapeutic Interventions Therapeutic Interventions Balance Training,Canalithic Repositioning,Gait Training, Home Exercise Program,Joint Mobilizations,Manual Therapy, Neuromuscular Re-education, Patient/Caregiver Education, Self-Care/Home Management,Soft Tissue Mobilization, Therapeutic Activities, Therapeutic Exercises Modalities Cold Pack/Ice Massage,Hot Packs Next Visit Focus/Plan Next Note Type Treatment Note Next Visit Plan MOCA Check her orthostatics with her BP cuff she brings in 6MWT or gait training with LRAD and make recommendation
--- NOTE | 2021-02-09 14:54 | PT.OTN ---
Current Diagnoses Other chronic pain (02/09/21) Spinal stenosis, cervical region (02/09/21) Headache, unspecified (02/09/21) Physical Therapy Treatment Note PT-OP-A Visit Information Start: 02/06/21 15:44 Freq: Status: Active Protocol: Document 02/09/21 09:45 MB (Rec: 02/09/21 10:38 MB [id number]) Out-Patient Physical Therapy Visit Information Visit Information Visit Type Treatment Note Visit Note Medicare 05/27 before KX Visit Start Time 09:45 Visit Stop Time 10:30 Total Visit Minutes 45 Visit Number 2 Evaluation Information Evaluation Date 02/07/21 Precautions Precautions High fall risk PT-OP-B Current Condition Start: 02/06/21 15:44 Freq: Status: Active Protocol: Document 02/07/21 10:33 MB (Rec: 02/07/21 10:54 MB [id number]) Current Condition History of Current Condition Onset Date July 2017 Current Complaints Headaches and neck pain, falling History of Current Condition Pt reports increased imbalance for about 9 months. The doctor told her to increase her gait width. She has had increasing headache and neck pain. She is going to see a neurologist 03/14/21 and will ask about headache, neck and decreased memory. Her last fall that caused injury was two years ago and she scraped her left cheek. She has had controlled rolled falls d/t imbalance. She furniture walks . She lives alone. She has a friend who calls or visits everyday and she has a cottage behind her house and those people check on her often. Pt had gotten injections for her back from Dr. Tee in 2018 and 2018 and she had a short course of PT for her back in 2018. She did not think that is was helpful. In July of 2017, she had a fall down 5 steps and hit the right side of her face. She has scoliosis, pinched sciatic nerve and two disc herniations as well as arthritis. All the pain started then. Pt reports 8/10 posterior head and neck pain and LBP. Her headaches start in the back and radiate around to her eyes, sinuses, jaws and teeth . She does not have TMJ per an oral specialist. The eye pain gets bad. She has had no acute visual changes. She had cataracts removed years ago. Other PMH includes latex allergy, hearing aids, right calf DVT 2011, left distal UE DVT two years ago. Pt takes Xarelto. Last year, pt had parathyroid surgery, osteopenia. She states she has BP changes but she is not clear what kind of BP changes she has. Pt occ wakes up at night d/t headache pain. She sleeps on her sides or stomach with the other side propped up. Prior Treatments and Tests 02/02/21: cervical MRI: multilevel DDD and canal and foraminal stenosis worst at C3 -C4, C4-5, C5-6 02/02/21: MRI brain: unremarkable Treatment Goals Patient/Caregiver Goals To reduce the headaches PT-OP-C Subjective Start: 02/06/21 15:44 Freq: Status: Active Protocol: Document 02/09/21 09:45 MB (Rec: 02/09/21 10:38 MB [id number]) OP-PT Subjective Patient Comments Patient Comments Pt tried sleeping on her back and it took her 2 hours to fall asleep and she ended up on her side. She has a thick feather pillow. She feels short of breath this morning. PT-OP-J Posture/Palpation/Skin Start: 02/06/21 15:44 Freq: Status: Active Protocol: Document 02/07/21 10:33 MB (Rec: 02/07/21 13:00 MB [id number]) Posture Evaluation Comments Posture Comments Standing posture: rounded shoulder, Dowager's hump, increased thoracic kyphosis, anterior tilt pelvis, left shoulder higher, kyphoscoliosis PT-OP-K Range of Motion Start: 02/06/21 15:44 Freq: Status: Active Protocol: Document 02/07/21 10:33 MB (Rec: 02/07/21 13:00 MB [id number]) Cervical Spine Range of Motion Cervical Spine Active Testing Position Standing Flexion 35 Extension 22 Rotation Left 55 Rotation Right 60 Lateral Flexion Left 20 Lateral Flexion Right 30 Comments Thoracic rotation in sitting is mildly more limited to the left PT-OP-M Strength Start: 02/06/21 15:44 Freq: Status: Active Protocol: Document 02/07/21 10:33 MB (Rec: 02/07/21 13:00 MB [id number]) Shoulder Strength Shoulder Manual Muscle Testing Left Flexion 4 Good Abduction (C5) 5 Normal Right Flexion 4 Good Abduction (C5) 5 Normal Elbow/Forearm Strength Elbow and Forearm Manual Muscle Testing Left Flexion (C6) 4 Good Extension (C7) 5 Normal Pronation 4 Good Supination 4 Good Right Flexion (C6) 4 Good Extension (C7) 4 Good Pronation 4 Good Supination 4 Good PT-OP-Q Treatments Start: 02/06/21 15:44 Freq: Status: Active Protocol: Document 02/09/21 09:45 MB (Rec: 02/09/21 14:54 MB [id number]) Self-Care/Home Management Treatment Education Patient Education Fall Risk,Posture,Safety Other Education Re-ed pt in benefits and application of towel roll under pillow for cervical support, positive orthostasis and provided handouts and education about things she can do and not do to help with symptoms and encouraged her to follow-up with her provider. PT performs MOCA and orthostatic assessment today and education afterwards, including about cognitive deficits, especially attention . PT does differentiate between attention and hearing as pt states that she hears sunshine when PT states face for first word of short-term recall list PT-OP-T Assessment and Plan Start: 02/06/21 15:44 Freq: Status: Active Protocol: Document 02/09/21 09:45 MB (Rec: 02/09/21 10:38 MB [id number]) Physical Therapy Assessment Rehab Potential Rehabilitation Potential Fair Evaluation Complexity Number of Personal Factors/Comorbidities 3 or More Number of Body Systems Impaired 4 or More Clinical Presentation at Evaluation Evolving Impairments Impairments Activity Tolerance,Balance, Functional Activities, Functional Mobility,Gait,Pain, Posture,ROM,Sensation,Soft Tissue Mobility,Strength, Transfers Other Impairments Personal factors include that pt lives at home alone and makes poor safety choices such as waking up with her cat between midnight and 2 a.m. to feed him because he is spoiled despite her imbalance and volatile BP, cognitive impairment and history of falls. Body systems affected include cognitive, neuromuscular, cardiac and musculoskeletal. Her clinical presentation is evolving to unstable. Other Concerns Fall Risk Yes Goals 4 Intermediate Goal (LTG) Pt will perform progressive HEP including headache self- care techniques, Buteyko breathing, flexibility, postural, balance and gait exercises with I to improve pain and safety by 04/09/21. LTG Duration 8 weeks 3 Medical Examiner Goal (LTG) Pt will gait train at least 1000 feet in 6 minutes with or without LRAD to improve community ambulation by 04/09/21 . LTG Duration 8 weeks 2 Intermediate Goal (LTG) Pt will perform WNLs on a standardized balance test to decrease fall risk by 04/09/21. LTG Duration 8 weeks 1 Intermediate Goal (LTG) Pt will deny falls for 2 months to decrease injury risk by 04/09/21. LTG Duration 8 weeks Assessment Summary Assessment HR 62 BPM, 98% O2 sats in right index finger before treatment. Pt brings in her automated cuff and she reviews BP numbers on her record with PT and it does fluctuate. She takes it in the morning and in the evening, but not always at the same time and always sitting in a chair in her left arm. Pt is not always eating breakfast and taking medication at the same time everyday. Orthostatic testing in LUE with pt's cuff today: supine 126/61, 61; standing 92 /52, 70; standing 1' 81/59, 80 ; standing 2' 113/52, 75. BP check today is about 2 hours after medication. Once again, pt has a history of falls and states that she feels imbalance is related to her BP and she feels heart palpitations after she has done much of anything. Today, orthostatic testing is positive. MOCA score today is not within normal limts--score is 24/30 and normal score would be greater than or equal to 26/30 . Biggest trouble is with visuospatial executive, naming , attention and delayed recall with biggest problem with attention. PT does make sure that her hearing PT is not the problem. Pt does state that her hearing has gotten a lot worse after she fell down the steps and hit her head in 2018 . Overall, PT is concerned about persistent concussion symptoms d/t ongoing falls, decreased cognition, headaches and neck pain. PT will incorporate concussion education and assessment into PT course. Physical Therapy Plan Frequency and Duration Frequency of Treatment 2x/Week Duration of Treatment 8 weeks Plan of Care Start Date 02/07/21 Plan of Care End Date 04/10/21 Therapeutic Interventions Therapeutic Interventions Balance Training,Canalithic Repositioning,Gait Training, Home Exercise Program,Joint Mobilizations,Manual Therapy, Neuromuscular Re-education, Patient/Caregiver Education, Self-Care/Home Management,Soft Tissue Mobilization, Therapeutic Activities, Therapeutic Exercises Modalities Cold Pack/Ice Massage,Hot Packs Other Referrals/Consults Referrals/Consults Recommended Follow-up with Dr. Gerber about medications, severe orthostasis and possible cardiology work-up d/t symptoms, orthostasis and falls. Pt reports possible vascular issues in B femoral areas. Next Visit Focus/Plan Next Note Type Treatment Note Next Visit Plan 6MWT or gait training with LRAD and make recommendation Initiate headache education, consider VOMS testing, check pupil constriction and other cranial nerves
--- NOTE | 2021-02-15 09:47 | PT.OTN ---
Current Diagnoses Other chronic pain (02/15/21) Spinal stenosis, cervical region (02/15/21) Headache, unspecified (02/15/21) Physical Therapy Treatment Note PT-OP-A Visit Information Start: 02/06/21 15:44 Freq: Status: Active Protocol: Document 02/15/21 09:03 MB (Rec: 02/15/21 09:46 MB [id number]) Out-Patient Physical Therapy Visit Information Visit Information Visit Type Treatment Note Visit Note Medicare 06/24 before KX Visit Start Time 09:03 Visit Stop Time 09:45 Total Visit Minutes 42 Visit Number 3 Evaluation Information Evaluation Date 02/07/21 Precautions Precautions High fall risk PT-OP-B Current Condition Start: 02/06/21 15:44 Freq: Status: Active Protocol: Document 02/07/21 10:33 MB (Rec: 02/07/21 10:54 MB [id number]) Current Condition History of Current Condition Onset Date July 2017 Current Complaints Headaches and neck pain, falling History of Current Condition Pt reports increased imbalance for about 9 months. The doctor told her to increase her gait width. She has had increasing headache and neck pain. She is going to see a neurologist 03/14/21 and will ask about headache, neck and decreased memory. Her last fall that caused injury was two years ago and she scraped her left cheek. She has had controlled rolled falls d/t imbalance. She furniture walks . She lives alone. She has a friend who calls or visits everyday and she has a cottage behind her house and those people check on her often. Pt had gotten injections for her back from Dr. Tee in 2018 and 2018 and she had a short course of PT for her back in 2018. She did not think that is was helpful. In July of 2017, she had a fall down 5 steps and hit the right side of her face. She has scoliosis, pinched sciatic nerve and two disc herniations as well as arthritis. All the pain started then. Pt reports 8/10 posterior head and neck pain and LBP. Her headaches start in the back and radiate around to her eyes, sinuses, jaws and teeth . She does not have TMJ per an oral specialist. The eye pain gets bad. She has had no acute visual changes. She had cataracts removed years ago. Other PMH includes latex allergy, hearing aids, right calf DVT 2011, left distal UE DVT two years ago. Pt takes Xarelto. Last year, pt had parathyroid surgery, osteopenia. She states she has BP changes but she is not clear what kind of BP changes she has. Pt occ wakes up at night d/t headache pain. She sleeps on her sides or stomach with the other side propped up. Prior Treatments and Tests 02/02/21: cervical MRI: multilevel DDD and canal and foraminal stenosis worst at C3 -C4, C4-5, C5-6 02/02/21: MRI brain: unremarkable Treatment Goals Patient/Caregiver Goals To reduce the headaches PT-OP-C Subjective Start: 02/06/21 15:44 Freq: Status: Active Protocol: Document 02/15/21 09:03 MB (Rec: 02/15/21 09:46 MB [id number]) OP-PT Subjective Patient Comments Patient Comments Pt states that her thyroid medication was upped. She started magnesium. Her attitude is better. Her headaches are better and her range of motion exercises that she typically does is better. PT-OP-J Posture/Palpation/Skin Start: 02/06/21 15:44 Freq: Status: Active Protocol: Document 02/07/21 10:33 MB (Rec: 02/07/21 13:00 MB [id number]) Posture Evaluation Comments Posture Comments Standing posture: rounded shoulder, Dowager's hump, increased thoracic kyphosis, anterior tilt pelvis, left shoulder higher, kyphoscoliosis PT-OP-K Range of Motion Start: 02/06/21 15:44 Freq: Status: Active Protocol: Document 02/07/21 10:33 MB (Rec: 02/07/21 13:00 MB [id number]) Cervical Spine Range of Motion Cervical Spine Active Testing Position Standing Flexion 35 Extension 22 Rotation Left 55 Rotation Right 60 Lateral Flexion Left 20 Lateral Flexion Right 30 Comments Thoracic rotation in sitting is mildly more limited to the left PT-OP-M Strength Start: 02/06/21 15:44 Freq: Status: Active Protocol: Document 02/07/21 10:33 MB (Rec: 02/07/21 13:00 MB [id number]) Shoulder Strength Shoulder Manual Muscle Testing Left Flexion 4 Good Abduction (C5) 5 Normal Right Flexion 4 Good Abduction (C5) 5 Normal Elbow/Forearm Strength Elbow and Forearm Manual Muscle Testing Left Flexion (C6) 4 Good Extension (C7) 5 Normal Pronation 4 Good Supination 4 Good Right Flexion (C6) 4 Good Extension (C7) 4 Good Pronation 4 Good Supination 4 Good PT-OP-Q Treatments Start: 02/06/21 15:44 Freq: Status: Active Protocol: Document 02/15/21 09:03 MB (Rec: 02/15/21 09:46 MB [id number]) Therapeutic Exercises Standing Exercises Racquet ball massage Side bilateral Comments Intrascapular STM today Self-Care/Home Management Treatment Education Other Education Provided handouts and education about good sleeping hygiene and headache self-care . Pt has TV in bedroom and watches TV until 10 p.m. She drinks a glass of water after that time and that is why she gets up at night (and to give the cat a snack). She reads 4- 5 pages of book before falling asleep. PT-OP-T Assessment and Plan Start: 02/06/21 15:44 Freq: Status: Active Protocol: Document 02/15/21 09:03 MB (Rec: 02/15/21 09:46 MB [id number]) Physical Therapy Assessment Rehab Potential Rehabilitation Potential Fair Evaluation Complexity Number of Personal Factors/Comorbidities 3 or More Number of Body Systems Impaired 4 or More Clinical Presentation at Evaluation Evolving Impairments Impairments Activity Tolerance,Balance, Functional Activities, Functional Mobility,Gait,Pain, Posture,ROM,Sensation,Soft Tissue Mobility,Strength, Transfers Other Impairments Personal factors include that pt lives at home alone and makes poor safety choices such as waking up with her cat between midnight and 2 a.m. to feed him because he is spoiled despite her imbalance and volatile BP, cognitive impairment and history of falls. Body systems affected include cognitive, neuromuscular, cardiac and musculoskeletal. Her clinical presentation is evolving to unstable. Other Concerns Fall Risk Yes Goals 4 Retirement Goal (LTG) Pt will perform progressive HEP including headache self- care techniques, Buteyko breathing, flexibility, postural, balance and gait exercises with I to improve pain and safety by 04/09/21. LTG Duration 8 weeks 3 Pocket Flap Creasing Machine Operator Goal (LTG) Pt will gait train at least 1000 feet in 6 minutes with or without LRAD to improve community ambulation by 04/09/21 . LTG Duration 8 weeks 2 Pocket Flap Creasing Machine Operator Goal (LTG) Pt will perform WNLs on a standardized balance test to decrease fall risk by 04/09/21. LTG Duration 8 weeks 1 Pocket Flap Creasing Machine Operator Goal (LTG) Pt will deny falls for 2 months to decrease injury risk by 04/09/21. LTG Duration 8 weeks Assessment Summary Assessment Cranial nerve testing today: CN1: no change in smell; CN2: pt states that she doesn't think her vision is as keen as it used to be with distanced diminished and pt had cataract surgery 8-10 years ago; CN3: pupils are equal and reactive to pen light; CN3,4, 6--smooth pursuits all normal and no saccades and pt does have trouble with convergence, greater with the right eye; CN5: facial sensation and bite down good with equal temporalis and masseter tension, right side of smile is mildly less. Pt states that right side strikes faster; CN7: raised eyebrows equal and normal; CN8: pt is very imbalanced and this will be worked on during PT. She reports after fall in 2018, her acute hearing was changed and began to diminish in both ears; CN 9 and 10: ah and swallow are normal; CN 11 and 12: pt cannot make her tongue stick out straight, can move it right and left equally, equal shoulder elevation strength 5/5. PT provides extensive ed today and it does not sound that her sleeping hygiene habits will change as far as watching TV until 10 p. m., drinking a glass of water, then getting up to use the restroom and give her cat a snack 2 hours later. She then sleeps 6 more hours. She takes an afternoon nap. Initiated self-myofascial massage today with racquet balls. Physical Therapy Plan Frequency and Duration Frequency of Treatment 2x/Week Duration of Treatment 8 weeks Plan of Care Start Date 02/07/21 Plan of Care End Date 04/10/21 Therapeutic Interventions Therapeutic Interventions Balance Training,Canalithic Repositioning,Gait Training, Home Exercise Program,Joint Mobilizations,Manual Therapy, Neuromuscular Re-education, Patient/Caregiver Education, Self-Care/Home Management,Soft Tissue Mobilization, Therapeutic Activities, Therapeutic Exercises Modalities Cold Pack/Ice Massage,Hot Packs Other Referrals/Consults Referrals/Consults Recommended Follow-up with Dr. Gerber about medications, severe orthostasis and possible cardiology work-up d/t symptoms, orthostasis and falls. Pt reports possible vascular issues in B femoral areas. Next Visit Focus/Plan Next Note Type Treatment Note Next Visit Plan Racquet ball and back potable water treatment operator ed, scapular retraction, head rotation with end-range head nods, thoracic rotation Manual work 6MWT or gait training with LRAD and make recommendation, balance Consider progressive relaxation technique VOMS testing
--- NOTE | 2021-02-17 10:34 | PT.OTN ---
Current Diagnoses Other chronic pain (02/17/21) Spinal stenosis, cervical region (02/17/21) Headache, unspecified (02/17/21) Physical Therapy Treatment Note PT-OP-A Visit Information Start: 02/06/21 15:44 Freq: Status: Active Protocol: Document 02/17/21 09:48 SP (Rec: 02/17/21 10:34 SP [id number]) Out-Patient Physical Therapy Visit Information Visit Information Visit Type Treatment Note Visit Note SPTA attended tx and provided education under direct supervision and instruction of LUCIO Griffith. Medicare 06/24 before KX Visit Start Time 09:48 Visit Stop Time 10:34 Total Visit Minutes 46 Visit Number 4 Number of ENVIRONMENTAL RESEARCH SCIENTIST Visits 1 Evaluation Information Evaluation Date 02/07/21 Precautions Precautions High fall risk PT-OP-B Current Condition Start: 02/06/21 15:44 Freq: Status: Active Protocol: Document 02/07/21 10:33 MB (Rec: 02/07/21 10:54 MB [id number]) Current Condition History of Current Condition Onset Date July 2017 Current Complaints Headaches and neck pain, falling History of Current Condition Pt reports increased imbalance for about 9 months. The doctor told her to increase her gait width. She has had increasing headache and neck pain. She is going to see a neurologist 03/14/21 and will ask about headache, neck and decreased memory. Her last fall that caused injury was two years ago and she scraped her left cheek. She has had controlled rolled falls d/t imbalance. She furniture walks . She lives alone. She has a friend who calls or visits everyday and she has a cottage behind her house and those people check on her often. Pt had gotten injections for her back from Dr. Tee in 2018 and 2018 and she had a short course of PT for her back in 2018. She did not think that is was helpful. In July of 2017, she had a fall down 5 steps and hit the right side of her face. She has scoliosis, pinched sciatic nerve and two disc herniations as well as arthritis. All the pain started then. Pt reports 8/10 posterior head and neck pain and LBP. Her headaches start in the back and radiate around to her eyes, sinuses, jaws and teeth . She does not have TMJ per an oral specialist. The eye pain gets bad. She has had no acute visual changes. She had cataracts removed years ago. Other PMH includes latex allergy, hearing aids, right calf DVT 2011, left distal UE DVT two years ago. Pt takes Xarelto. Last year, pt had parathyroid surgery, osteopenia. She states she has BP changes but she is not clear what kind of BP changes she has. Pt occ wakes up at night d/t headache pain. She sleeps on her sides or stomach with the other side propped up. Prior Treatments and Tests 02/02/21: cervical MRI: multilevel DDD and canal and foraminal stenosis worst at C3 -C4, C4-5, C5-6 02/02/21: MRI brain: unremarkable Treatment Goals Patient/Caregiver Goals To reduce the headaches PT-OP-C Subjective Start: 02/06/21 15:44 Freq: Status: Active Protocol: Document 02/17/21 09:48 SP (Rec: 02/17/21 10:34 SP [id number]) OP-PT Subjective Patient Comments Patient Comments Pt states that she takes 2-4 tylenol for headache pain. Pt. reports sleeping on her side. pt. reports a mild headache today, worse in suboccipital region, and radiating around both sides of the skull towards eyes. On inquiry, Pt. indicated that she normally wall cruises, and has her house set up so that she can have a hand on something at all times. Denies any trouble moving from car to a building. PT-OP-J Posture/Palpation/Skin Start: 02/06/21 15:44 Freq: Status: Active Protocol: Document 02/07/21 10:33 MB (Rec: 02/07/21 13:00 MB [id number]) Posture Evaluation Comments Posture Comments Standing posture: rounded shoulder, Dowager's hump, increased thoracic kyphosis, anterior tilt pelvis, left shoulder higher, kyphoscoliosis PT-OP-K Range of Motion Start: 02/06/21 15:44 Freq: Status: Active Protocol: Document 02/07/21 10:33 MB (Rec: 02/07/21 13:00 MB [id number]) Cervical Spine Range of Motion Cervical Spine Active Testing Position Standing Flexion 35 Extension 22 Rotation Left 55 Rotation Right 60 Lateral Flexion Left 20 Lateral Flexion Right 30 Comments Thoracic rotation in sitting is mildly more limited to the left PT-OP-M Strength Start: 02/06/21 15:44 Freq: Status: Active Protocol: Document 02/07/21 10:33 MB (Rec: 02/07/21 13:00 MB [id number]) Shoulder Strength Shoulder Manual Muscle Testing Left Flexion 4 Good Abduction (C5) 5 Normal Right Flexion 4 Good Abduction (C5) 5 Normal Elbow/Forearm Strength Elbow and Forearm Manual Muscle Testing Left Flexion (C6) 4 Good Extension (C7) 5 Normal Pronation 4 Good Supination 4 Good Right Flexion (C6) 4 Good Extension (C7) 4 Good Pronation 4 Good Supination 4 Good PT-OP-Q Treatments Start: 02/06/21 15:44 Freq: Status: Active Protocol: Document 02/17/21 09:48 SP (Rec: 02/17/21 10:34 SP [id number]) Therapeutic Exercises Supine Exercises pec stretch Supine Exercise Name added to HEP Side bilateral Resistance AROM Equipment Used over pool noodle (provided) Reps/Minutes 3x30 Comments B UE at 90 flexion and abduction. Pool noodle supporting head, torso, pelvi Cervical rot with head knod Supine Exercise Name added to HEP Side bilateral Resistance AROM Reps/Minutes 5x each side Comments painfree Sitting Exercises UT, LS stretch Sitting Exercise Name added to HEP Side bilateral Resistance AROM Reps/Minutes 3x30 cervical retraction Sitting Exercise Name added to HEP Side bilateral Resistance AROM Reps/Minutes 5x 10s hold Manual Therapy Treatment Soft Tissue Mobilization SCM Mobilization Type Cross-Friction,Oscillations, Rolling,Strumming Intensity/Depth Superficial Body Position Supine Posteriolateral cervical Body Location sub-occipital, cervical paraspinals, levator scapula, UT, scalenes, ATHLETIC AGENT Mobilization Type Myofascial Release,Sustained Pressure,Other Intensity/Depth Moderate Body Position Supine Comments Supine with knees supported on 2 pillows. Pt. tender on L>R, demonstrating increased tightness L>R. Applied craniosacral Self-Care/Home Management Treatment Education Patient Education Joint Protection,Pain Management,Posture,Safety Other Education Provided sleep positioning and pillow use training with apropriate head height, cervical towel in pillowcase, torso pillow clutched to chest , towel under thoracic region inferior to axilla, and pillow between knees to ankles. PT-OP-T Assessment and Plan Start: 02/06/21 15:44 Freq: Status: Active Protocol: Document 02/17/21 09:48 SP (Rec: 02/17/21 10:34 SP [id number]) Physical Therapy Assessment Goals 4 Design Consultant Goal (LTG) Pt will perform progressive HEP including headache self- care techniques, Buteyko breathing, flexibility, postural, balance and gait exercises with I to improve pain and safety by 04/09/21. LTG Duration 8 weeks 3 Half-Way Goal (LTG) Pt will gait train at least 1000 feet in 6 minutes with or without LRAD to improve community ambulation by 04/09/21 . LTG Duration 8 weeks 2 Design Consultant Goal (LTG) Pt will perform WNLs on a standardized balance test to decrease fall risk by 04/09/21. LTG Duration 8 weeks 1 Design Consultant Goal (LTG) Pt will deny falls for 2 months to decrease injury risk by 04/09/21. LTG Duration 8 weeks Assessment Summary Assessment Pt. wall cruised leaving waiting room and along wall to gym. Physical Therapy Plan Frequency and Duration Frequency of Treatment 2x/Week Duration of Treatment 8 weeks Plan of Care Start Date 02/07/21 Plan of Care End Date 04/10/21 Therapeutic Interventions Therapeutic Interventions Balance Training,Canalithic Repositioning,Gait Training, Home Exercise Program,Joint Mobilizations,Manual Therapy, Neuromuscular Re-education, Patient/Caregiver Education, Self-Care/Home Management,Soft Tissue Mobilization, Therapeutic Activities, Therapeutic Exercises Modalities Cold Pack/Ice Massage,Hot Packs Other Referrals/Consults Referrals/Consults Recommended Follow-up with Dr. Gerber about medications, severe orthostasis and possible cardiology work-up d/t symptoms, orthostasis and falls. Pt reports possible vascular issues in B femoral areas. Next Visit Focus/Plan Next Note Type Treatment Note Next Visit Plan Assess response to initiated: scap retraction, pec stretch over pool noodle, CS rotaion w / nods, UT/ Lev scap stretch. POC: Racquet ball and back fraud manager ed, scapular retraction, thoracic rotation Manual work 6MWT or gait training with LRAD and make recommendation, balance Consider progressive relaxation technique VOMS testing
--- NOTE | 2021-02-21 13:44 | PT.OTN ---
Current Diagnoses Other chronic pain (02/21/21) Spinal stenosis, cervical region (02/21/21) Headache, unspecified (02/21/21) Physical Therapy Treatment Note PT-OP-A Visit Information Start: 02/06/21 15:44 Freq: Status: Active Protocol: Document 02/21/21 13:00 MB (Rec: 02/21/21 13:43 MB [id number]) Out-Patient Physical Therapy Visit Information Visit Information Visit Type Treatment Note Visit Note Medicare 08/24 before KX Visit Start Time 13:00 Visit Stop Time 13:41 Total Visit Minutes 41 Visit Number 5 Number of M48 M60 ARMOR CREWMAN Visits 0 Evaluation Information Evaluation Date 02/07/21 Precautions Precautions High fall risk PT-OP-B Current Condition Start: 02/06/21 15:44 Freq: Status: Active Protocol: Document 02/07/21 10:33 MB (Rec: 02/07/21 10:54 MB [id number]) Current Condition History of Current Condition Onset Date July 2017 Current Complaints Headaches and neck pain, falling History of Current Condition Pt reports increased imbalance for about 9 months. The doctor told her to increase her gait width. She has had increasing headache and neck pain. She is going to see a neurologist 03/14/21 and will ask about headache, neck and decreased memory. Her last fall that caused injury was two years ago and she scraped her left cheek. She has had controlled rolled falls d/t imbalance. She furniture walks . She lives alone. She has a friend who calls or visits everyday and she has a cottage behind her house and those people check on her often. Pt had gotten injections for her back from Dr. Tee in 2018 and 2018 and she had a short course of PT for her back in 2018. She did not think that is was helpful. In July of 2017, she had a fall down 5 steps and hit the right side of her face. She has scoliosis, pinched sciatic nerve and two disc herniations as well as arthritis. All the pain started then. Pt reports 8/10 posterior head and neck pain and LBP. Her headaches start in the back and radiate around to her eyes, sinuses, jaws and teeth . She does not have TMJ per an oral specialist. The eye pain gets bad. She has had no acute visual changes. She had cataracts removed years ago. Other PMH includes latex allergy, hearing aids, right calf DVT 2011, left distal UE DVT two years ago. Pt takes Xarelto. Last year, pt had parathyroid surgery, osteopenia. She states she has BP changes but she is not clear what kind of BP changes she has. Pt occ wakes up at night d/t headache pain. She sleeps on her sides or stomach with the other side propped up. Prior Treatments and Tests 02/02/21: cervical MRI: multilevel DDD and canal and foraminal stenosis worst at C3 -C4, C4-5, C5-6 02/02/21: MRI brain: unremarkable Treatment Goals Patient/Caregiver Goals To reduce the headaches PT-OP-C Subjective Start: 02/06/21 15:44 Freq: Status: Active Protocol: Document 02/21/21 13:00 MB (Rec: 02/21/21 13:43 MB [id number]) OP-PT Subjective Patient Comments Patient Comments Pt liked the massage and the exercises. She states that the exercises state hold 30 minutes and that is ridiculous . Ed pt to hold 30 seconds. She thinks the magnesium is helpful and the headaches aren 't as bad and her neighbor states she is perkier. PT-OP-J Posture/Palpation/Skin Start: 02/06/21 15:44 Freq: Status: Active Protocol: Document 02/07/21 10:33 MB (Rec: 02/07/21 13:00 MB [id number]) Posture Evaluation Comments Posture Comments Standing posture: rounded shoulder, Dowager's hump, increased thoracic kyphosis, anterior tilt pelvis, left shoulder higher, kyphoscoliosis PT-OP-K Range of Motion Start: 02/06/21 15:44 Freq: Status: Active Protocol: Document 02/07/21 10:33 MB (Rec: 02/07/21 13:00 MB [id number]) Cervical Spine Range of Motion Cervical Spine Active Testing Position Standing Flexion 35 Extension 22 Rotation Left 55 Rotation Right 60 Lateral Flexion Left 20 Lateral Flexion Right 30 Comments Thoracic rotation in sitting is mildly more limited to the left PT-OP-M Strength Start: 02/06/21 15:44 Freq: Status: Active Protocol: Document 02/07/21 10:33 MB (Rec: 02/07/21 13:00 MB [id number]) Shoulder Strength Shoulder Manual Muscle Testing Left Flexion 4 Good Abduction (C5) 5 Normal Right Flexion 4 Good Abduction (C5) 5 Normal Elbow/Forearm Strength Elbow and Forearm Manual Muscle Testing Left Flexion (C6) 4 Good Extension (C7) 5 Normal Pronation 4 Good Supination 4 Good Right Flexion (C6) 4 Good Extension (C7) 4 Good Pronation 4 Good Supination 4 Good PT-OP-Q Treatments Start: 02/06/21 15:44 Freq: Status: Active Protocol: Document 02/21/21 13:00 MB (Rec: 02/21/21 13:43 MB [id number]) Therapeutic Exercises Supine Exercises pec stretch Supine Exercise Name B flexion, Ts, 1/2 Xs and pect stretch Equipment Used Purple pool noodle Reps/Minutes 30 sec pect stretch, 10 reps AROM Comments Abdominal drawing in, pelvic tilt and spine flat Cervical rot with head knod Side bilateral Resistance AROM Comments 1 rep each side and 10 nods Manual Therapy Treatment Other Other Manual Treatments Pt hook lying with head and neck supported and legs up: suboccipital release, STM B SCM and MWM with pt rotating head opposite direction, left first rib gentle grade II mob, B upper traps gentle STM, grade II PA mobs cervical spinous processes PT-OP-T Assessment and Plan Start: 02/06/21 15:44 Freq: Status: Active Protocol: Document 02/21/21 13:00 MB (Rec: 02/21/21 13:43 MB [id number]) Physical Therapy Assessment Rehab Potential Rehabilitation Potential Fair Evaluation Complexity Number of Personal Factors/Comorbidities 3 or More Number of Body Systems Impaired 4 or More Clinical Presentation at Evaluation Evolving Impairments Impairments Activity Tolerance,Balance, Functional Activities, Functional Mobility,Gait,Pain, Posture,ROM,Sensation,Soft Tissue Mobility,Strength, Transfers Other Impairments Personal factors include that pt lives at home alone and makes poor safety choices such as waking up with her cat between midnight and 2 a.m. to feed him because he is spoiled despite her imbalance and volatile BP, cognitive impairment and history of falls. Body systems affected include cognitive, neuromuscular, cardiac and musculoskeletal. Her clinical presentation is evolving to unstable. Other Concerns Fall Risk Yes Goals 4 Senior Care Goal (LTG) Pt will perform progressive HEP including headache self- care techniques, Buteyko breathing, flexibility, postural, balance and gait exercises with I to improve pain and safety by 04/09/21. LTG Duration 8 weeks 3 Spiral Runner Goal (LTG) Pt will gait train at least 1000 feet in 6 minutes with or without LRAD to improve community ambulation by 04/09/21 . LTG Duration 8 weeks 2 Spiral Runner Goal (LTG) Pt will perform WNLs on a standardized balance test to decrease fall risk by 04/09/21. LTG Duration 8 weeks 1 Senior Care Goal (LTG) Pt will deny falls for 2 months to decrease injury risk by 04/09/21. LTG Duration 8 weeks Assessment Summary Assessment Pt has questions about exercises given last treatment date but does not bring in handouts and handouts are not scanned in. Many said hold 30 minutes and she did not understand cervical retraction . Did ed pt to hold 30 sec only. Progressed pool noodle exercises today. Asked pt to bring in her handouts from previous treatment dates so that they can be revised. Physical Therapy Plan Frequency and Duration Frequency of Treatment 2x/Week Duration of Treatment 8 weeks Plan of Care Start Date 02/07/21 Plan of Care End Date 04/10/21 Therapeutic Interventions Therapeutic Interventions Balance Training,Canalithic Repositioning,Gait Training, Home Exercise Program,Joint Mobilizations,Manual Therapy, Neuromuscular Re-education, Patient/Caregiver Education, Self-Care/Home Management,Soft Tissue Mobilization, Therapeutic Activities, Therapeutic Exercises Modalities Cold Pack/Ice Massage,Hot Packs Other Referrals/Consults Referrals/Consults Recommended Follow-up with Dr. Gerber about medications, severe orthostasis and possible cardiology work-up d/t symptoms, orthostasis and falls. Pt reports possible vascular issues in B femoral areas. Next Visit Focus/Plan Next Note Type Treatment Note Next Visit Plan Go through pt's handouts previously given as they might have mis-types for hold time and she has questions about them. She should bring in her handouts 6MWT or gait training with LRAD and make recommendation, balance With primary PT: Buteyko breathing, consider progressive relaxation technique VOMS testing
--- NOTE | 2021-02-28 11:20 | PT.OTN ---
Current Diagnoses Other chronic pain (02/28/21) Spinal stenosis, cervical region (02/28/21) Headache, unspecified (02/28/21) Physical Therapy Treatment Note PT-OP-A Visit Information Start: 02/06/21 15:44 Freq: Status: Active Protocol: Document 02/28/21 10:31 SP (Rec: 02/28/21 11:37 SP [id number]) Out-Patient Physical Therapy Visit Information Visit Information Visit Type Treatment Note Visit Note Medicare 09/24 before KX PT vitals: supine: BP 140/63, HR 61 seated: 132/62, HR 64 stand: 107/58, HR 69 nonsymptomatic Visit Start Time 10:31 Visit Stop Time 11:20 Total Visit Minutes 49 Visit Number 6 Number of [place] PAINTER Visits 1 Evaluation Information Evaluation Date 02/07/21 Precautions Precautions High fall risk PT-OP-B Current Condition Start: 02/06/21 15:44 Freq: Status: Active Protocol: Document 02/07/21 10:33 MB (Rec: 02/07/21 10:54 MB [id number]) Current Condition History of Current Condition Onset Date July 2017 Current Complaints Headaches and neck pain, falling History of Current Condition Pt reports increased imbalance for about 9 months. The doctor told her to increase her gait width. She has had increasing headache and neck pain. She is going to see a neurologist 03/14/21 and will ask about headache, neck and decreased memory. Her last fall that caused injury was two years ago and she scraped her left cheek. She has had controlled rolled falls d/t imbalance. She furniture walks . She lives alone. She has a friend who calls or visits everyday and she has a cottage behind her house and those people check on her often. Pt had gotten injections for her back from Dr. Tee in 2018 and 2018 and she had a short course of PT for her back in 2018. She did not think that is was helpful. In July of 2017, she had a fall down 5 steps and hit the right side of her face. She has scoliosis, pinched sciatic nerve and two disc herniations as well as arthritis. All the pain started then. Pt reports 8/10 posterior head and neck pain and LBP. Her headaches start in the back and radiate around to her eyes, sinuses, jaws and teeth . She does not have TMJ per an oral specialist. The eye pain gets bad. She has had no acute visual changes. She had cataracts removed years ago. Other PMH includes latex allergy, hearing aids, right calf DVT 2011, left distal UE DVT two years ago. Pt takes Xarelto. Last year, pt had parathyroid surgery, osteopenia. She states she has BP changes but she is not clear what kind of BP changes she has. Pt occ wakes up at night d/t headache pain. She sleeps on her sides or stomach with the other side propped up. Prior Treatments and Tests 02/02/21: cervical MRI: multilevel DDD and canal and foraminal stenosis worst at C3 -C4, C4-5, C5-6 02/02/21: MRI brain: unremarkable Treatment Goals Patient/Caregiver Goals To reduce the headaches PT-OP-C Subjective Start: 02/06/21 15:44 Freq: Status: Active Protocol: Document 02/28/21 10:31 SP (Rec: 02/28/21 11:37 SP [id number]) OP-PT Subjective Patient Comments Patient Comments Pt reported laying over noodle with herniated discs has been really uncomfortable and so DC using and just performs HEp on floor with good feedback. Has less headaches but gone away yet. Has also been taking Magnesium at same time started PT so not sure if one is helping more but finds both are helping. See feedback recommended for referrral upcoming dates: neurologist, ware server, FU Dr Gerber. PT-OP-J Posture/Palpation/Skin Start: 02/06/21 15:44 Freq: Status: Active Protocol: Document 02/07/21 10:33 MB (Rec: 02/07/21 13:00 MB [id number]) Posture Evaluation Comments Posture Comments Standing posture: rounded shoulder, Dowager's hump, increased thoracic kyphosis, anterior tilt pelvis, left shoulder higher, kyphoscoliosis PT-OP-K Range of Motion Start: 02/06/21 15:44 Freq: Status: Active Protocol: Document 02/07/21 10:33 MB (Rec: 02/07/21 13:00 MB [id number]) Cervical Spine Range of Motion Cervical Spine Active Testing Position Standing Flexion 35 Extension 22 Rotation Left 55 Rotation Right 60 Lateral Flexion Left 20 Lateral Flexion Right 30 Comments Thoracic rotation in sitting is mildly more limited to the left PT-OP-M Strength Start: 02/06/21 15:44 Freq: Status: Active Protocol: Document 02/07/21 10:33 MB (Rec: 02/07/21 13:00 MB [id number]) Shoulder Strength Shoulder Manual Muscle Testing Left Flexion 4 Good Abduction (C5) 5 Normal Right Flexion 4 Good Abduction (C5) 5 Normal Elbow/Forearm Strength Elbow and Forearm Manual Muscle Testing Left Flexion (C6) 4 Good Extension (C7) 5 Normal Pronation 4 Good Supination 4 Good Right Flexion (C6) 4 Good Extension (C7) 4 Good Pronation 4 Good Supination 4 Good PT-OP-Q Treatments Start: 02/06/21 15:44 Freq: Status: Active Protocol: Document 02/28/21 10:31 SP (Rec: 02/28/21 11:37 SP [id number]) Therapeutic Exercises Supine Exercises pec stretch Supine Exercise Name B flexion, Ts, 1/2 Xs and pect stretch Side bilateral Resistance AROM>TB #1 Ts, Xs only, improved Ws AROM forearm almost // floor Equipment Used mat table- pain in back with noodle Reps/Minutes 30 sec pect stretch, 10 reps AROM Comments improved TA, spinal align, cued no UT recruitment Standing Exercises theracane Standing Exercise Name UT, suboccipitals, lev scap, Rhom ( added to HEP, purchase good response!!) Side bilateral Reps/Minutes 5 min Comments MWM head nod/turn or scap mob protrac/ retract/inf/ sup mobility Therapeutic Activity Therapeutic Activity BP reassessment positional Name time spent finding BP cuff proper performance Reps/Minutes 8 min Comments supine/ seated/ stand- orthostatic overall nonsymptomatic Manual Therapy Treatment Soft Tissue Mobilization SCM Mobilization Type Cross-Friction,Oscillations, Rolling,Strumming Intensity/Depth Superficial Body Position Supine Posteriolateral cervical Body Location sub-occipital, cervical paraspinals, levator scapula, UT, scalenes, PACKING HOUSE LABORER Mobilization Type Myofascial Release,Sustained Pressure,Other Intensity/Depth Moderate Body Position Supine Comments Supine with knees supported on 2 pillows. Pt. tender on R>L, demonstrating increased release post manual and MWM head nod/ turn Applied craniosacral Other Other Manual Treatments Pt hook lying with head and neck supported and legs up: suboccipital release, STM B SCM and MWM with pt head nod turns: upper traps, lev scap gentle STM. PT-OP-T Assessment and Plan Start: 02/06/21 15:44 Freq: Status: Active Protocol: Document 02/28/21 10:31 SP (Rec: 02/28/21 11:37 SP [id number]) Physical Therapy Assessment Goals 4 Retirement Goal (LTG) Pt will perform progressive HEP including headache self- care techniques, Buteyko breathing, flexibility, postural, balance and gait exercises with I to improve pain and safety by 04/09/21. LTG Duration 8 weeks 3 Retirement Goal (LTG) Pt will gait train at least 1000 feet in 6 minutes with or without LRAD to improve community ambulation by 04/09/21 . LTG Duration 8 weeks 2 Production Recorder Goal (LTG) Pt will perform WNLs on a standardized balance test to decrease fall risk by 04/09/21. LTG Duration 8 weeks 1 Retirement Goal (LTG) Pt will deny falls for 2 months to decrease injury risk by 04/09/21. LTG Duration 8 weeks Assessment Summary Assessment Tx focused on HEP review ableto progress Tb use with Ts / Xs this tx good response. Not able to use noodle due to causes back discomfort then did fine. Introduced theracane for home for CS musculature with good feedback response results will get online for home use. Still orthostatic hypotension assessment but nonsymptomatic, has follow up with physicans referrals beg [facility], see below. Reviewed Pt hand outs. Physical Therapy Plan Frequency and Duration Frequency of Treatment 2x/Week Duration of Treatment 8 weeks Plan of Care Start Date 02/07/21 Plan of Care End Date 04/10/21 Therapeutic Interventions Therapeutic Interventions Balance Training,Canalithic Repositioning,Gait Training, Home Exercise Program,Joint Mobilizations,Manual Therapy, Neuromuscular Re-education, Patient/Caregiver Education, Self-Care/Home Management,Soft Tissue Mobilization, Therapeutic Activities, Therapeutic Exercises Modalities Cold Pack/Ice Massage,Hot Packs Other Referrals/Consults Referrals/Consults Recommended Follow-up with Dr. Gerber and neurologist 1st visit 03/15. Hope will review medications, severe orthostasis and possible cardiology ( PCM hasn't started a regerral yet ) for work-up d/t symptoms, orthostasis and falls. Pt reports possible vascular issues in B femoral areas. Next Visit Focus/Plan Next Note Type Treatment Note Next Visit Plan Recheck Tb w/ HEP. POC: She should bring in her handouts 6MWT or gait training with LRAD and make recommendation, balance With primary PT: [place]o breathing, consider progressive relaxation technique VOMS testing
--- NOTE | 2021-03-06 13:33 | PT.OTN ---
Addendum entered and electronically signed by Ye Xiao 03/09/21 12:25: Floor Transfer: Performed floor transfer assessment for safety performance at home per patient request with SBA. Stand<>half kneel<>quadruped<>side-sitting<>supine. Original Note: Current Diagnoses Other chronic pain (03/06/21) Spinal stenosis, cervical region (03/06/21) Headache, unspecified (03/06/21) Physical Therapy Treatment Note PT-OP-A Visit Information Start: 02/06/21 15:44 Freq: Status: Active Protocol: Document 03/06/21 09:48 ER (Rec: 03/06/21 12:18 ER [id number]) Out-Patient Physical Therapy Visit Information Visit Information Visit Type Treatment Note Visit Note Medicare 09/24 before KX PT vitals: seated 123/73, HR 72, 100%SaO2 seated in chair, post fall: 106/53. HR67 recheck seated in chair, post fall: 104/56, HR 63 Visit Start Time 09:48 Visit Stop Time 10:30 Total Visit Minutes 42 Visit Number 7 Number of MODEL PHOTOGRAPHERS' Visits 2 Precautions Precautions High fall risk Potential latex allergy PT-OP-B Current Condition Start: 02/06/21 15:44 Freq: Status: Active Protocol: Document 02/07/21 10:33 MB (Rec: 02/07/21 10:54 MB [id number]) Current Condition History of Current Condition Onset Date July 2017 Current Complaints Headaches and neck pain, falling History of Current Condition Pt reports increased imbalance for about 9 months. The doctor told her to increase her gait width. She has had increasing headache and neck pain. She is going to see a neurologist 03/14/21 and will ask about headache, neck and decreased memory. Her last fall that caused injury was two years ago and she scraped her left cheek. She has had controlled rolled falls d/t imbalance. She furniture walks . She lives alone. She has a friend who calls or visits everyday and she has a cottage behind her house and those people check on her often. Pt had gotten injections for her back from Dr. Tee in 2017 and 2018 and she had a short course of PT for her back in 2018. She did not think that is was helpful. In July of 2017, she had a fall down 5 steps and hit the right side of her face. She has scoliosis, pinched sciatic nerve and two disc herniations as well as arthritis. All the pain started then. Pt reports 8/10 posterior head and neck pain and LBP. Her headaches start in the back and radiate around to her eyes, sinuses, jaws and teeth . She does not have TMJ per an oral specialist. The eye pain gets bad. She has had no acute visual changes. She had cataracts removed years ago. Other PMH includes latex allergy, hearing aids, right calf DVT 2011, left distal UE DVT two years ago. Pt takes Xarelto. Last year, pt had parathyroid surgery, osteopenia. She states she has BP changes but she is not clear what kind of BP changes she has. Pt occ wakes up at night d/t headache pain. She sleeps on her sides or stomach with the other side propped up. Prior Treatments and Tests 02/02/21: cervical MRI: multilevel DDD and canal and foraminal stenosis worst at C3 -C4, C4-5, C5-6 02/02/21: MRI brain: unremarkable Treatment Goals Patient/Caregiver Goals To reduce the headaches PT-OP-C Subjective Start: 02/06/21 15:44 Freq: Status: Active Protocol: Document 03/06/21 09:48 ER (Rec: 03/06/21 12:18 ER [id number]) OP-PT Subjective Patient Comments Patient Comments Pt reports headaches have diminished some since beginning of course of PT, but not resolved entirely. Reports BP at home runs in 140 -150 systolic. Pt stated that she is concerned about why she is having dizzy episodes when changing positions. Indicated that she has neurology and cardiology consults coming up in the near future. PT-OP-J Posture/Palpation/Skin Start: 02/06/21 15:44 Freq: Status: Active Protocol: Document 02/07/21 10:33 MB (Rec: 02/07/21 13:00 MB [id number]) Posture Evaluation Comments Posture Comments Standing posture: rounded shoulder, Dowager's hump, increased thoracic kyphosis, anterior tilt pelvis, left shoulder higher, kyphoscoliosis PT-OP-K Range of Motion Start: 02/06/21 15:44 Freq: Status: Active Protocol: Document 02/07/21 10:33 MB (Rec: 02/07/21 13:00 MB [id number]) Cervical Spine Range of Motion Cervical Spine Active Testing Position Standing Flexion 35 Extension 22 Rotation Left 55 Rotation Right 60 Lateral Flexion Left 20 Lateral Flexion Right 30 Comments Thoracic rotation in sitting is mildly more limited to the left PT-OP-M Strength Start: 02/06/21 15:44 Freq: Status: Active Protocol: Document 02/07/21 10:33 MB (Rec: 02/07/21 13:00 MB [id number]) Shoulder Strength Shoulder Manual Muscle Testing Left Flexion 4 Good Abduction (C5) 5 Normal Right Flexion 4 Good Abduction (C5) 5 Normal Elbow/Forearm Strength Elbow and Forearm Manual Muscle Testing Left Flexion (C6) 4 Good Extension (C7) 5 Normal Pronation 4 Good Supination 4 Good Right Flexion (C6) 4 Good Extension (C7) 4 Good Pronation 4 Good Supination 4 Good PT-OP-Q Treatments Start: 02/06/21 15:44 Freq: Status: Active Protocol: Document 03/06/21 09:48 ER (Rec: 03/06/21 12:18 ER [id number]) Therapeutic Exercises Supine Exercises pec stretch Supine Exercise Name B flexion, Ts, 1/2 Xs and pect stretch Side bilateral Resistance AROM> 3# dumbells> TB#1 on Tx and Xs only Reps/Minutes 30 sec pect stretch, 10x each side X, Ts. Comments provided with non-latex TB with altered hand loops to relieve thumb pressur Sitting Exercises Cervical Rot with head knods Sitting Exercise Name reviewed HEP Reps/Minutes 1 x 10 nods each side. UT, LS stretch Sitting Exercise Name reviewed HEP Side bilateral Resistance AROM Reps/Minutes 1x30 cervical retraction Reps/Minutes 5x 5s hold PT-OP-T Assessment and Plan Start: 02/06/21 15:44 Freq: Status: Active Protocol: Document 03/06/21 09:48 ER (Rec: 03/06/21 12:18 ER [id number]) Physical Therapy Assessment Goals 4 [facility]cf Goal (LTG) Pt will perform progressive HEP including headache self- care techniques, Buteyko breathing, flexibility, postural, balance and gait exercises with I to improve pain and safety by 04/09/21. LTG Duration 8 weeks 3 Chcf Goal (LTG) Pt will gait train at least 1000 feet in 6 minutes with or without LRAD to improve community ambulation by 04/09/21 . LTG Duration 8 weeks 2 [facility]cf Goal (LTG) Pt will perform WNLs on a standardized balance test to decrease fall risk by 04/09/21. LTG Duration 8 weeks 1 Signs And Displays Salesperson Goal (LTG) Pt will deny falls for 2 months to decrease injury risk by 04/09/21. LTG Duration 8 weeks Assessment Summary Assessment Took Pt vitals pre tx - in normal range. Pt performed T, W, Xs with good form on yoga mat on floor. Had self adjusted from tband to 3# weights at home because of irritation to skin/ pain around thumb. Advised that she may have a latex allergy, and provided with non-latex TB with end loops to increase comfort/ reduce irritation. Pt alpa to tall kneeling on her own, however when she moved to rise, R knee collapsed and pt fell to floor. No loss of consciousness. Pt was allowed to rest on floor for ~2 min, then came to sitting using a chair for support on rising. Pt reported slight rug burn to R wrist but no other irritations or injuries. Checked vitals and again 2 minutes later. Both BP were decreased from initial check at start of tx (all under Visit Notes above). Pt reported no sensation of dizziness unsteadiness while sitting. Continued with cervical exercises in sitting with cues for proper form and duration. Pt stood post tx with no dizziness, but took ~1 minute before taking a step and leaving clinic. Recommend gait belt during treatment and closer guarding on and off floor and chair or other support available for floor transfers during therapy. Physical Therapy Plan Frequency and Duration Frequency of Treatment 2x/Week Duration of Treatment 8 weeks Plan of Care Start Date 02/07/21 Plan of Care End Date 04/10/21 Therapeutic Interventions Therapeutic Interventions Balance Training,Canalithic Repositioning,Gait Training, Home Exercise Program,Joint Mobilizations,Manual Therapy, Neuromuscular Re-education, Patient/Caregiver Education, Self-Care/Home Management,Soft Tissue Mobilization, Therapeutic Activities, Therapeutic Exercises Modalities Cold Pack/Ice Massage,Hot Packs Next Visit Focus/Plan Next Note Type Treatment Note Next Visit Plan Check response to fall during tall kneeling during last Tx. Assess HEP performance with new TB. Review HEP. POC: She should bring in her handouts 6MWT or gait training with LRAD and make recommendation, balance With primary PT: Buteyko breathing, consider progressive relaxation technique VOMS testing
--- NOTE | 2021-03-08 11:45 | PT.OTN ---
Current Diagnoses Other chronic pain (03/08/21) Spinal stenosis, cervical region (03/08/21) Headache, unspecified (03/08/21) Physical Therapy Treatment Note PT-OP-A Visit Information Start: 02/06/21 15:44 Freq: Status: Active Protocol: Document 03/08/21 10:33 MB (Rec: 03/08/21 10:58 MB [id number]) Out-Patient Physical Therapy Visit Information Visit Information Visit Type Progress Note Visit Note Medicare 11/24 before KX Visit Start Time 10:33 Visit Stop Time 11:15 Total Visit Minutes 42 Visit Number 8 Number of CALL CIRCUIT WORKER Visits 0 Evaluation Information Evaluation Date 02/07/21 Precautions Precautions High fall risk Potential latex allergy PT-OP-B Current Condition Start: 02/06/21 15:44 Freq: Status: Active Protocol: Document 02/07/21 10:33 MB (Rec: 02/07/21 10:54 MB [id number]) Current Condition History of Current Condition Onset Date July 2017 Current Complaints Headaches and neck pain, falling History of Current Condition Pt reports increased imbalance for about 9 months. The doctor told her to increase her gait width. She has had increasing headache and neck pain. She is going to see a neurologist 03/14/21 and will ask about headache, neck and decreased memory. Her last fall that caused injury was two years ago and she scraped her left cheek. She has had controlled rolled falls d/t imbalance. She furniture walks . She lives alone. She has a friend who calls or visits everyday and she has a cottage behind her house and those people check on her often. Pt had gotten injections for her back from Dr. Tee in 2018 and 2018 and she had a short course of PT for her back in 2018. She did not think that is was helpful. In July of 2017, she had a fall down 5 steps and hit the right side of her face. She has scoliosis, pinched sciatic nerve and two disc herniations as well as arthritis. All the pain started then. Pt reports 8/10 posterior head and neck pain and LBP. Her headaches start in the back and radiate around to her eyes, sinuses, jaws and teeth . She does not have TMJ per an oral specialist. The eye pain gets bad. She has had no acute visual changes. She had cataracts removed years ago. Other PMH includes latex allergy, hearing aids, right calf DVT 2011, left distal UE DVT two years ago. Pt takes Xarelto. Last year, pt had parathyroid surgery, osteopenia. She states she has BP changes but she is not clear what kind of BP changes she has. Pt occ wakes up at night d/t headache pain. She sleeps on her sides or stomach with the other side propped up. Prior Treatments and Tests 02/02/21: cervical MRI: multilevel DDD and canal and foraminal stenosis worst at C3 -C4, C4-5, C5-6 02/02/21: MRI brain: unremarkable Treatment Goals Patient/Caregiver Goals To reduce the headaches PT-OP-C Subjective Start: 02/06/21 15:44 Freq: Status: Active Protocol: Document 03/08/21 10:33 MB (Rec: 03/08/21 10:58 MB [id number]) OP-PT Subjective Patient Comments Patient Comments Pt states that right calf is a little sore after going down to right side at PT. It is getting better and she doesn't think she needs to go to the doctor. She has felt dizziness all morning. PT-OP-J Posture/Palpation/Skin Start: 02/06/21 15:44 Freq: Status: Active Protocol: Document 02/07/21 10:33 MB (Rec: 02/07/21 13:00 MB [id number]) Posture Evaluation Comments Posture Comments Standing posture: rounded shoulder, Dowager's hump, increased thoracic kyphosis, anterior tilt pelvis, left shoulder higher, kyphoscoliosis PT-OP-K Range of Motion Start: 02/06/21 15:44 Freq: Status: Active Protocol: Document 02/07/21 10:33 MB (Rec: 02/07/21 13:00 MB [id number]) Cervical Spine Range of Motion Cervical Spine Active Testing Position Standing Flexion 35 Extension 22 Rotation Left 55 Rotation Right 60 Lateral Flexion Left 20 Lateral Flexion Right 30 Comments Thoracic rotation in sitting is mildly more limited to the left PT-OP-M Strength Start: 02/06/21 15:44 Freq: Status: Active Protocol: Document 02/07/21 10:33 MB (Rec: 02/07/21 13:00 MB [id number]) Shoulder Strength Shoulder Manual Muscle Testing Left Flexion 4 Good Abduction (C5) 5 Normal Right Flexion 4 Good Abduction (C5) 5 Normal Elbow/Forearm Strength Elbow and Forearm Manual Muscle Testing Left Flexion (C6) 4 Good Extension (C7) 5 Normal Pronation 4 Good Supination 4 Good Right Flexion (C6) 4 Good Extension (C7) 4 Good Pronation 4 Good Supination 4 Good PT-OP-Q Treatments Start: 02/06/21 15:44 Freq: Status: Active Protocol: Document 03/08/21 10:33 MB (Rec: 03/08/21 11:45 MB [id number]) Therapeutic Activity Therapeutic Activity Transfers Comments Superv to CGA for sit to stands from int and to w/c and to hospital bed in ER. SERVICE DESK ANALYST for short gait distances once arrived to clinic today and PT must push pt up to ED in w/ c Self-Care/Home Management Treatment Education Patient Education Fall Risk,Safety Other Education Ongoing orthostasis, benefits of going to ED per Dr. Gerber referral and PT's concerns about cervical vasculature, fall risk, orthostasis PT-OP-T Assessment and Plan Start: 02/06/21 15:44 Freq: Status: Active Protocol: Document 03/08/21 10:33 MB (Rec: 03/08/21 10:58 MB [id number]) Physical Therapy Assessment Rehab Potential Rehabilitation Potential Fair Evaluation Complexity Number of Personal Factors/Comorbidities 1-2 Number of Body Systems Impaired 3 Clinical Presentation at Evaluation Unstable Impairments Impairments Activity Tolerance,Balance, Functional Activities, Functional Mobility,Gait,Pain, Posture,ROM,Soft Tissue Mobility,Strength,Transfers, Vestibular Other Impairments Personal factors include waking up with cat each night to give cat a snack and orthostasis. Body systems affected include memory, musculoskeletal and cardiac. Her clinical presentation is unstable. Other Concerns Fall Risk Yes Goals 4 Cosmetic Maker Goal (LTG) Pt will perform progressive HEP including headache self- care techniques, Buteyko breathing, flexibility, postural, balance and gait exercises with I to improve pain and safety by 04/22/21. 03/08/21: Pt is performing progressive exercises at home LTG Duration 6 weeks 3 Cosmetic Maker Goal (LTG) Pt will gait train at least 1000 feet in 6 minutes with or without LRAD to improve community ambulation by . 03/08/21: Cannot test today d/t orthostasis and symptoms LTG Duration 6 weeks 2 Fci Goal (LTG) Pt will perform WNLs on a standardized balance test to decrease fall risk by 04/22/21. 03/08/21: Cannot test today d/t orthostasis and symptoms LTG Duration 6 weeks 1 Cosmetic Maker Goal (LTG) Pt will deny falls for 2 months to decrease injury risk by 04/22/21. LTG Duration 6 weeks Assessment Summary Assessment Pt con't to report dizziness and wobbliness all morning. BP and HR in LUE: supine: 134/62 , 60; standing 102/54, 71; standing 1' 115/60, 74. Pt con 't with orthostasis and PT has recommended that pt follow-up with PCP and have possible cardiology referral. PT will send this note to Dr. Gerber today. PT does call Dr. Gerber who recommends that PT take pt up to the ED and communicate possible need for IV fluids and EKG. PT does do this and leaves pt with nsg in ED room after providing history. Will cancel first PT appointment next week and keep the PT appointment after she sees Buzz. Will con't PT efforts and include gait, AD and balance training to help decrease fall risk as she has had many falls in the past. Of note, PT did have cognitive changes per MOCA b y PT second visit. Physical Therapy Plan Frequency and Duration Frequency of Treatment 1-2x/Week Duration of Treatment 6 weeks Plan of Care Start Date 03/08/21 Plan of Care End Date 04/24/21 Therapeutic Interventions Therapeutic Interventions Balance Training,Canalithic Repositioning,Gait Training, Home Exercise Program,Joint Mobilizations,Manual Therapy, Neuromuscular Re-education, Patient/Caregiver Education, Self-Care/Home Management,Soft Tissue Mobilization, Therapeutic Activities, Therapeutic Exercises Modalities Cold Pack/Ice Massage,Hot Packs Other Referrals/Consults Referrals/Consults Recommended Follow-up with Dr. Gerber and neurologist 1st visit 03/15. Hope will review medications, severe orthostasis and possible cardiology referral. Pt reports possible vascular issues in B femoral areas. Next Visit Focus/Plan Next Note Type Treatment Note Next Visit Plan If her BP is stable, please do gait training with LRAD and make recommendation for SPC or RW 6MWT when appropriate, open book With primary PT: Buteyko breathing, consider progressive relaxation technique VOMS testing
--- NOTE | 2021-03-08 11:45 | PT.OPPOC ---
Physical, Occupational & Speech Therapy At [facility] Current Diagnoses Other chronic pain (03/08/21) Spinal stenosis, cervical region (03/08/21) Headache, unspecified (03/08/21) Visit Care Team Role Provider Type Zaki Gerber DO Attending Provider Physician Family Provider Primary Care Provider Referring Provider Specialty: Family Practice Address: [address] [place] [address], [facility] Email: [email or web address] Plan Of Care PT-OP-T Assessment and Plan Start: 02/06/21 15:44 Freq: Status: Active Protocol: Document 03/08/21 10:33 MB (Rec: 03/08/21 10:58 MB [id number]) Physical Therapy Assessment Rehab Potential Rehabilitation Potential Fair Evaluation Complexity Number of Personal Factors/Comorbidities 1-2 Number of Body Systems Impaired 3 Clinical Presentation at Evaluation Unstable Impairments Impairments Activity Tolerance,Balance, Functional Activities, Functional Mobility,Gait,Pain, Posture,ROM,Soft Tissue Mobility,Strength,Transfers, Vestibular Other Impairments Personal factors include waking up with cat each night to give cat a snack and orthostasis. Body systems affected include memory, musculoskeletal and cardiac. Her clinical presentation is unstable. Other Concerns Fall Risk Yes Goals 4 Detention Goal (LTG) Pt will perform progressive HEP including headache self- care techniques, Buteyko breathing, flexibility, postural, balance and gait exercises with I to improve pain and safety by 04/22/21. 03/08/21: Pt is performing progressive exercises at home LTG Duration 6 weeks 3 Olive Picker Goal (LTG) Pt will gait train at least 1000 feet in 6 minutes with or without LRAD to improve community ambulation by . 03/08/21: Cannot test today d/t orthostasis and symptoms LTG Duration 6 weeks 2 Olive Picker Goal (LTG) Pt will perform WNLs on a standardized balance test to decrease fall risk by 04/22/21. 03/08/21: Cannot test today d/t orthostasis and symptoms LTG Duration 6 weeks 1 Olive Picker Goal (LTG) Pt will deny falls for 2 months to decrease injury risk by 04/22/21. LTG Duration 6 weeks Assessment Summary Assessment Pt con't to report dizziness and wobbliness all morning. BP and HR in LUE: supine: 134/62 , 60; standing 102/54, 71; standing 1' 115/60, 74. Pt con 't with orthostasis and PT has recommended that pt follow-up with PCP and have possible cardiology referral. PT will send this note to Dr. Gerber today. PT does call Dr. Gerber who recommends that PT take pt up to the ED and communicate possible need for IV fluids and EKG. PT does do this and leaves pt with nsg in ED room after providing history. Will cancel first PT appointment next week and keep the PT appointment after she sees Buzz. Will con't PT efforts and include gait, AD and balance training to help decrease fall risk as she has had many falls in the past. Of note, PT did have cognitive changes per MOCA b y PT second visit. Physical Therapy Plan Frequency and Duration Frequency of Treatment 1-2x/Week Duration of Treatment 6 weeks Plan of Care Start Date 03/08/21 Plan of Care End Date 04/24/21 Therapeutic Interventions Therapeutic Interventions Balance Training,Canalithic Repositioning,Gait Training, Home Exercise Program,Joint Mobilizations,Manual Therapy, Neuromuscular Re-education, Patient/Caregiver Education, Self-Care/Home Management,Soft Tissue Mobilization, Therapeutic Activities, Therapeutic Exercises Modalities Cold Pack/Ice Massage,Hot Packs Other Referrals/Consults Referrals/Consults Recommended Follow-up with Dr. Gerber and neurologist 1st visit 03/15. Hope will review medications, severe orthostasis and possible cardiology referral. Pt reports possible vascular issues in B femoral areas. Next Visit Focus/Plan Next Note Type Treatment Note Next Visit Plan If her BP is stable, please do gait training with LRAD and make recommendation for SPC or RW 6MWT when appropriate, open book With primary PT: Buteyko breathing, consider progressive relaxation technique VOMS testing Plan of Care Dates Plan of Care Start Date 03/08/21 Plan of Care End Date 04/24/21 Electronically Signed by: Carley Lara, PT 03/08/21 3455 Please Sign and Return: I have reviewed this Plan of Care and certify that the skilled therapy services above are required to meet the patient?s needs. Physician Signature Date Printed Name and Credentials Clinical Instructor Signature Printed Name and Credentials
--- NOTE | 2021-03-08 11:46 | PT.OPPOC ---
Physical, Occupational & Speech Therapy At [facility] Current Diagnoses Other chronic pain (03/08/21) Spinal stenosis, cervical region (03/08/21) Headache, unspecified (03/08/21) Visit Care Team Role Provider Type Zaki Gerber DO Attending Provider Physician Family Provider Primary Care Provider Referring Provider Specialty: Family Practice Address: [address] [place] [address], [facility] Email: [email or web address] Plan Of Care PT-OP-T Assessment and Plan Start: 02/06/21 15:44 Freq: Status: Active Protocol: Document 03/08/21 10:33 MB (Rec: 03/08/21 10:58 MB [id number]) Physical Therapy Assessment Rehab Potential Rehabilitation Potential Fair Evaluation Complexity Number of Personal Factors/Comorbidities 1-2 Number of Body Systems Impaired 3 Clinical Presentation at Evaluation Unstable Impairments Impairments Activity Tolerance,Balance, Functional Activities, Functional Mobility,Gait,Pain, Posture,ROM,Soft Tissue Mobility,Strength,Transfers, Vestibular Other Impairments Personal factors include waking up with cat each night to give cat a snack and orthostasis. Body systems affected include memory, musculoskeletal and cardiac. Her clinical presentation is unstable. Other Concerns Fall Risk Yes Goals 4 Fdc Goal (LTG) Pt will perform progressive HEP including headache self- care techniques, Buteyko breathing, flexibility, postural, balance and gait exercises with I to improve pain and safety by 04/22/21. 03/08/21: Pt is performing progressive exercises at home LTG Duration 6 weeks 3 Cork Insulator Helper Goal (LTG) Pt will gait train at least 1000 feet in 6 minutes with or without LRAD to improve community ambulation by . 03/08/21: Cannot test today d/t orthostasis and symptoms LTG Duration 6 weeks 2 Cork Insulator Helper Goal (LTG) Pt will perform WNLs on a standardized balance test to decrease fall risk by 04/22/21. 03/08/21: Cannot test today d/t orthostasis and symptoms LTG Duration 6 weeks 1 Cork Insulator Helper Goal (LTG) Pt will deny falls for 2 months to decrease injury risk by 04/22/21. LTG Duration 6 weeks Assessment Summary Assessment Pt con't to report dizziness and wobbliness all morning. BP and HR in LUE: supine: 134/62 , 60; standing 102/54, 71; standing 1' 115/60, 74. Pt con 't with orthostasis and PT has recommended that pt follow-up with PCP and have possible cardiology referral. PT will send this note to Dr. Gerber today. PT does call Dr. Gerber who recommends that PT take pt up to the ED and communicate possible need for IV fluids and EKG. PT does do this and leaves pt with nsg in ED room after providing history. Will cancel first PT appointment next week and keep the PT appointment after she sees Buzz. Will con't PT efforts and include gait, AD and balance training to help decrease fall risk as she has had many falls in the past. Of note, PT did have cognitive changes per MOCA b y PT second visit. Physical Therapy Plan Frequency and Duration Frequency of Treatment 1-2x/Week Duration of Treatment 6 weeks Plan of Care Start Date 03/08/21 Plan of Care End Date 04/24/21 Therapeutic Interventions Therapeutic Interventions Balance Training,Canalithic Repositioning,Gait Training, Home Exercise Program,Joint Mobilizations,Manual Therapy, Neuromuscular Re-education, Patient/Caregiver Education, Self-Care/Home Management,Soft Tissue Mobilization, Therapeutic Activities, Therapeutic Exercises Modalities Cold Pack/Ice Massage,Hot Packs Other Referrals/Consults Referrals/Consults Recommended Follow-up with Dr. Gerber and neurologist 1st visit 03/15. Hope will review medications, severe orthostasis and possible cardiology referral. Pt reports possible vascular issues in B femoral areas. Next Visit Focus/Plan Next Note Type Treatment Note Next Visit Plan If her BP is stable, please do gait training with LRAD and make recommendation for SPC or RW 6MWT when appropriate, open book With primary PT: Buteyko breathing, consider progressive relaxation technique VOMS testing Plan of Care Dates Plan of Care Start Date 03/08/21 Plan of Care End Date 04/24/21 Electronically Signed by: Carley Lara, PT 03/08/21 1824 Please Sign and Return: I have reviewed this Plan of Care and certify that the skilled therapy services above are required to meet the patient?s needs. Physician Signature Date Printed Name and Credentials Clinical Instructor Signature Printed Name and Credentials
--- NOTE | 2021-03-08 13:59 | PT-OP ANOTE ---
PT reviews ED notes. Head CT was negative. No EKG report that PT can see and that Dr. Gerber had asked for. CTPA does have lung nodules and breast nodule. PT had been concerned about blood flow to the brain (carotids and vertebrals) in setting of pt reports of vascular problems in her legs in the past and orthostasis. Unclear if pt got fluids or not. She will follow-up with Buzz 03/14/21 per pt. Pt has had memory issues with PT. Will send this note to Buzz as well.
--- NOTE | 2021-03-09 12:52 | PT-OP ANOTE ---
PT left a message with pt to follow-up about yesterday's ED visit and PT plan going forward. Left message that her next appointment is on 03/16 at 0945 with Gladis and that Gladis has been updated on ED visit and plan to check BP and try AD training. Did ed pt to not to come to PT if she is not safe driving or walking and to make sure she calls clinic to cancel appointment if she is not going to make it to appointment. Asked pt to bring in her cane and walker if she has them. Pt to see Gladis the next to visits when this PT is OOT.
--- NOTE | 2021-03-20 10:30 | PT.OTN ---
Current Diagnoses Other chronic pain (03/20/21) Spinal stenosis, cervical region (03/20/21) Headache, unspecified (03/20/21) Physical Therapy Treatment Note PT-OP-A Visit Information Start: 02/06/21 15:44 Freq: Status: Active Protocol: Document 03/20/21 09:50 SP (Rec: 03/20/21 10:32 SP [id number]) Out-Patient Physical Therapy Visit Information Visit Information Visit Type Treatment Note Visit Note Medicare 12/25 before KX Pt 4 min late for appt, hurried in so forgot her hurry cane in car. Visit Start Time 09:50 Visit Stop Time 10:30 Total Visit Minutes 40 Visit Number 9 Number of MEETING FACILITATOR Visits 1 Evaluation Information Evaluation Date 02/07/21 Precautions Precautions High fall risk, orthostatis Potential latex allergy Pt reports vascular issues between knees and hips B femoral area with spider web veins vs larger veins and told stent not possible due to deteriorated. PT-OP-B Current Condition Start: 02/06/21 15:44 Freq: Status: Active Protocol: Document 02/07/21 10:33 MB (Rec: 02/07/21 10:54 MB [id number]) Current Condition History of Current Condition Onset Date July 2017 Current Complaints Headaches and neck pain, falling History of Current Condition Pt reports increased imbalance for about 9 months. The doctor told her to increase her gait width. She has had increasing headache and neck pain. She is going to see a neurologist 03/14/21 and will ask about headache, neck and decreased memory. Her last fall that caused injury was two years ago and she scraped her left cheek. She has had controlled rolled falls d/t imbalance. She furniture walks . She lives alone. She has a friend who calls or visits everyday and she has a cottage behind her house and those people check on her often. Pt had gotten injections for her back from Dr. Tee in 2018 and 2018 and she had a short course of PT for her back in 2018. She did not think that is was helpful. In July of 2017, she had a fall down 5 steps and hit the right side of her face. She has scoliosis, pinched sciatic nerve and two disc herniations as well as arthritis. All the pain started then. Pt reports 8/10 posterior head and neck pain and LBP. Her headaches start in the back and radiate around to her eyes, sinuses, jaws and teeth . She does not have TMJ per an oral specialist. The eye pain gets bad. She has had no acute visual changes. She had cataracts removed years ago. Other PMH includes latex allergy, hearing aids, right calf DVT 2011, left distal UE DVT two years ago. Pt takes Xarelto. Last year, pt had parathyroid surgery, osteopenia. She states she has BP changes but she is not clear what kind of BP changes she has. Pt occ wakes up at night d/t headache pain. She sleeps on her sides or stomach with the other side propped up. Prior Treatments and Tests 02/02/21: cervical MRI: multilevel DDD and canal and foraminal stenosis worst at C3 -C4, C4-5, C5-6 02/02/21: MRI brain: unremarkable Treatment Goals Patient/Caregiver Goals To reduce the headaches PT-OP-C Subjective Start: 02/06/21 15:44 Freq: Status: Active Protocol: Document 03/20/21 09:50 SP (Rec: 03/20/21 10:32 SP [id number]) OP-PT Subjective Patient Comments Patient Comments Pt reports got a hurry cane and found is very helpful even though not sure using correctly so wants to work on today but left it by accident in car. States uses cane car to grocery store then puts it in the cart. She saw Dr Gerber and discussed nodules see in lungs with testing and breast with referral for future mammogram and US needing appts in Apr. Saw neurologist and said nothing concerning. Pt stated went to a play and found the cane helped stabilizer when had some persons accidently bump into her, self recovery. Pt states uses RW if tiring walking around longer distance and knows will need a rest. PT-OP-J Posture/Palpation/Skin Start: 02/06/21 15:44 Freq: Status: Active Protocol: Document 02/07/21 10:33 MB (Rec: 02/07/21 13:00 MB [id number]) Posture Evaluation Comments Posture Comments Standing posture: rounded shoulder, Dowager's hump, increased thoracic kyphosis, anterior tilt pelvis, left shoulder higher, kyphoscoliosis PT-OP-K Range of Motion Start: 02/06/21 15:44 Freq: Status: Active Protocol: Document 02/07/21 10:33 MB (Rec: 02/07/21 13:00 MB [id number]) Cervical Spine Range of Motion Cervical Spine Active Testing Position Standing Flexion 35 Extension 22 Rotation Left 55 Rotation Right 60 Lateral Flexion Left 20 Lateral Flexion Right 30 Comments Thoracic rotation in sitting is mildly more limited to the left PT-OP-M Strength Start: 02/06/21 15:44 Freq: Status: Active Protocol: Document 02/07/21 10:33 MB (Rec: 02/07/21 13:00 MB [id number]) Shoulder Strength Shoulder Manual Muscle Testing Left Flexion 4 Good Abduction (C5) 5 Normal Right Flexion 4 Good Abduction (C5) 5 Normal Elbow/Forearm Strength Elbow and Forearm Manual Muscle Testing Left Flexion (C6) 4 Good Extension (C7) 5 Normal Pronation 4 Good Supination 4 Good Right Flexion (C6) 4 Good Extension (C7) 4 Good Pronation 4 Good Supination 4 Good PT-OP-Q Treatments Start: 02/06/21 15:44 Freq: Status: Active Protocol: Document 03/20/21 09:50 SP (Rec: 03/20/21 10:32 SP [id number]) Therapeutic Exercises Supine Exercises pec stretch Supine Exercise Name B flexion, Ts, 1/2 Xs and pect stretch Side bilateral Resistance AROM> 3# dumbells> TB#1 on Tx and Xs only Equipment Used discussed not performed today Reps/Minutes 30 sec pect stretch, 10x each side X, Ts. Comments provided with non-latex TB with altered hand loops to relieve thumb pressur Cervical rot with head knod Supine Exercise Name HEP verbal review Side bilateral Resistance AROM Equipment Used discussed not performed today Comments 1 rep each side and 10 nods Sitting Exercises sit<> stands Sitting Exercise Name arms across chest (added to HEP) Resistance 18 chair Reps/Minutes x5 (tires after 5 so stoprest) Comments cued feet and knee with toes normal distance apart- good hip hinge Cervical Rot with head knods Sitting Exercise Name reviewed HEP Reps/Minutes 1 x 10 nods each side. Comments cued tall allignment posture UT, LS stretch Sitting Exercise Name reviewed HEP Side bilateral Resistance AROM Reps/Minutes 1x30 Comments cued tall allignment posture Gait Training Gait Activity SPC/ Hurrycane Description 2pt gait: straight corners, 360 deg turns Device Used SPC (hurry cane in car, late for appt forgot) Level of Assistance SBA Surface firm Distance/Duration 340 ft, 170 ft Treatment Focus 2pt gait, turns, balance, foot clearance Comments R foot catches carpet edge x1, self recovery using SPC, min cues for self corrections proper patternng after turns, small steps /slow down for proper patterning for safety balance. Cued for SPC for balance support, not lean on improved pacing patterning with LLE. PT-OP-T Assessment and Plan Start: 02/06/21 15:44 Freq: Status: Active Protocol: Document 03/20/21 09:50 SP (Rec: 03/20/21 10:32 SP [id number]) Physical Therapy Assessment Goals 4 Ecommerce Analyst Goal (LTG) Pt will perform progressive HEP including headache self- care techniques, Buteyko breathing, flexibility, postural, balance and gait exercises with I to improve pain and safety by 04/22/21. 03/08/21: Pt is performing progressive exercises at home LTG Duration 6 weeks 3 Snf Goal (LTG) Pt will gait train at least 1000 feet in 6 minutes with or without LRAD to improve community ambulation by . 03/08/21: Cannot test today d/t orthostasis and symptoms 04/07/21: pt able to ambulate 340 ft w/ SPC before requires seated rest due to tiring. Cues for 2pt patterning and maintaining proper form post turns/ corners for safety balance. LTG Duration 6 weeks 2 Ecommerce Analyst Goal (LTG) Pt will perform WNLs on a standardized balance test to decrease fall risk by 04/22/21. 03/08/21: Cannot test today d/t orthostasis and symptoms LTG Duration 6 weeks 1 Ecommerce Analyst Goal (LTG) Pt will deny falls for 2 months to decrease injury risk by 04/22/21. LTG Duration 6 weeks Assessment Summary Assessment Tx focused on gait training with AD, SPC inRUE during tx but pt has a hurry cane forgot in car. Pt requires occasional cuing for sequencing with LLE especially after corners, turns, tires after 340 ft and requires seated rest, no dizzinesss. States uses cane car to grocery store then puts it in the cart. Cued for SPC for balance support not lean on. Initiated sit<>stands for functional strengthening to support edurance gait and balance, good form and understanding, no adverse affects, limit 5 reps due to tiring and want successful progressoin. Physical Therapy Plan Frequency and Duration Frequency of Treatment 1-2x/Week Duration of Treatment 6 weeks Plan of Care Start Date 03/08/21 Plan of Care End Date 04/24/21 Therapeutic Interventions Therapeutic Interventions Balance Training,Canalithic Repositioning,Gait Training, Home Exercise Program,Joint Mobilizations,Manual Therapy, Neuromuscular Re-education, Patient/Caregiver Education, Self-Care/Home Management,Soft Tissue Mobilization, Therapeutic Activities, Therapeutic Exercises Modalities Cold Pack/Ice Massage,Hot Packs Other Referrals/Consults Referrals/Consults Recommended Future cardiology, Mammogram and Echo referral in Apr, no date yet. Next Visit Focus/Plan Next Note Type Treatment Note Next Visit Plan Continue gait w/ personal hurry cane, recheck HEP, added sit<> stands last tx. Assess 6MWT next tx, low endurance last tx, 370 ft before seated rest. POC: If her BP is stable, please continue gait training with LRAD and make recommendation for SPC or RW 6MWT when appropriate, open book With primary PT: Kiranko breathing, consider progressive relaxation technique VOMS testing
--- NOTE | 2021-03-23 10:32 | PT.OTN ---
Current Diagnoses Other chronic pain (03/23/21) Spinal stenosis, cervical region (03/23/21) Headache, unspecified (03/23/21) Physical Therapy Treatment Note PT-OP-A Visit Information Start: 02/06/21 15:44 Freq: Status: Active Protocol: Document 03/23/21 09:45 MB (Rec: 03/23/21 10:32 MB [id number]) Out-Patient Physical Therapy Visit Information Visit Information Visit Type Treatment Note Visit Note Medicare 12/25 before KX Pt 4 min late for appt, hurried in so forgot her hurry cane in car. Visit Start Time 09:45 Visit Stop Time 10:30 Total Visit Minutes 45 Visit Number 10 Number of UNIFIED COMMUNICATIONS ENGINEER Visits 0 Evaluation Information Evaluation Date 02/07/21 Precautions Precautions High fall risk, orthostatis Potential latex allergy Pt reports vascular issues between knees and hips B femoral area with spider web veins vs larger veins and told stent not possible due to deteriorated. PT-OP-B Current Condition Start: 02/06/21 15:44 Freq: Status: Active Protocol: Document 02/07/21 10:33 MB (Rec: 02/07/21 10:54 MB [id number]) Current Condition History of Current Condition Onset Date July 2017 Current Complaints Headaches and neck pain, falling History of Current Condition Pt reports increased imbalance for about 9 months. The doctor told her to increase her gait width. She has had increasing headache and neck pain. She is going to see a neurologist 03/14/21 and will ask about headache, neck and decreased memory. Her last fall that caused injury was two years ago and she scraped her left cheek. She has had controlled rolled falls d/t imbalance. She furniture walks . She lives alone. She has a friend who calls or visits everyday and she has a cottage behind her house and those people check on her often. Pt had gotten injections for her back from Dr. Tee in 2018 and 2018 and she had a short course of PT for her back in 2018. She did not think that is was helpful. In July of 2017, she had a fall down 5 steps and hit the right side of her face. She has scoliosis, pinched sciatic nerve and two disc herniations as well as arthritis. All the pain started then. Pt reports 8/10 posterior head and neck pain and LBP. Her headaches start in the back and radiate around to her eyes, sinuses, jaws and teeth . She does not have TMJ per an oral specialist. The eye pain gets bad. She has had no acute visual changes. She had cataracts removed years ago. Other PMH includes latex allergy, hearing aids, right calf DVT 2011, left distal UE DVT two years ago. Pt takes Xarelto. Last year, pt had parathyroid surgery, osteopenia. She states she has BP changes but she is not clear what kind of BP changes she has. Pt occ wakes up at night d/t headache pain. She sleeps on her sides or stomach with the other side propped up. Prior Treatments and Tests 02/02/21: cervical MRI: multilevel DDD and canal and foraminal stenosis worst at C3 -C4, C4-5, C5-6 02/02/21: MRI brain: unremarkable Treatment Goals Patient/Caregiver Goals To reduce the headaches PT-OP-C Subjective Start: 02/06/21 15:44 Freq: Status: Active Protocol: Document 03/23/21 09:45 MB (Rec: 03/23/21 10:32 MB [id number]) OP-PT Subjective Patient Comments Patient Comments Pt has a mammogram, US, echocardiogram. She is not surprised about the breast nodules as her mom had breast cancer when she was older and she ended up passing from that . She is more concerned about the lung nodules. The headaches are better. She doesn't have the little headaches anymore. She still gets the big headaches. Sleeping is the same: she cat naps until midnight, gets up to drink water and give her cat a snack and then sleeps to 0730. Her cat scratched her this morning. PT-OP-J Posture/Palpation/Skin Start: 02/06/21 15:44 Freq: Status: Active Protocol: Document 02/07/21 10:33 MB (Rec: 02/07/21 13:00 MB [id number]) Posture Evaluation Comments Posture Comments Standing posture: rounded shoulder, Dowager's hump, increased thoracic kyphosis, anterior tilt pelvis, left shoulder higher, kyphoscoliosis PT-OP-K Range of Motion Start: 02/06/21 15:44 Freq: Status: Active Protocol: Document 02/07/21 10:33 MB (Rec: 02/07/21 13:00 MB [id number]) Cervical Spine Range of Motion Cervical Spine Active Testing Position Standing Flexion 35 Extension 22 Rotation Left 55 Rotation Right 60 Lateral Flexion Left 20 Lateral Flexion Right 30 Comments Thoracic rotation in sitting is mildly more limited to the left PT-OP-M Strength Start: 02/06/21 15:44 Freq: Status: Active Protocol: Document 02/07/21 10:33 MB (Rec: 02/07/21 13:00 MB [id number]) Shoulder Strength Shoulder Manual Muscle Testing Left Flexion 4 Good Abduction (C5) 5 Normal Right Flexion 4 Good Abduction (C5) 5 Normal Elbow/Forearm Strength Elbow and Forearm Manual Muscle Testing Left Flexion (C6) 4 Good Extension (C7) 5 Normal Pronation 4 Good Supination 4 Good Right Flexion (C6) 4 Good Extension (C7) 4 Good Pronation 4 Good Supination 4 Good PT-OP-Q Treatments Start: 02/06/21 15:44 Freq: Status: Active Protocol: Document 03/23/21 09:45 MB (Rec: 03/23/21 10:32 MB [id number]) Gait Training Gait Activity 6MWT Comments 03/23/22: Pt gait trains 797 feet in 6 minutes with hurrycane in right hand. She stops often, especially at curves, to correct advancing cane with left foot. This makes her gait more march in appearance. Cues to swing her left arm/loosen posture and she is able to do so. Her carmen slows with increased gait distance d/t c/ o right greater than left lower leg pain and she reports vascular impairment. She is on a blood thinner and previous surgeon could not open up vessels d/t decreased vessel availability and integrity. Skin is dry and warm to touch, no discoloration, mild spider veins lower legs--PT just looks at calves Gait is similar throughout treatment Self-Care/Home Management Treatment Education Other Education Re-ed on orthostasis, safety, findings today, record BP findings today in her chart and PT writes down for her, ask cardiovascular surgeon about compression hose and wrote down for pt, bring in exercises next treatment date PT-OP-T Assessment and Plan Start: 02/06/21 15:44 Freq: Status: Active Protocol: Document 03/23/21 09:45 MB (Rec: 03/23/21 10:32 MB [id number]) Physical Therapy Assessment Rehab Potential Rehabilitation Potential Fair Evaluation Complexity Number of Personal Factors/Comorbidities 1-2 Number of Body Systems Impaired 3 Clinical Presentation at Evaluation Unstable Impairments Impairments Activity Tolerance,Balance, Functional Activities, Functional Mobility,Gait,Pain, Posture,ROM,Soft Tissue Mobility,Strength,Transfers, Vestibular Other Impairments Personal factors include waking up with cat each night to give cat a snack and orthostasis. Body systems affected include memory, musculoskeletal and cardiac. Her clinical presentation is unstable. Other Concerns Fall Risk Yes Goals 4 Inspector Aide Goal (LTG) Pt will perform progressive HEP including headache self- care techniques, Buteyko breathing, flexibility, postural, balance and gait exercises with I to improve pain and safety by 04/22/21. 03/08/21: Pt is performing progressive exercises at home LTG Duration 6 weeks 3 Inspector Aide Goal (LTG) Pt will gait train at least 1000 feet in 6 minutes with or without LRAD to improve community ambulation by . 03/23/22: Pt gait trains 797 feet in 6 minutes with hurrycane in right hand. She stops often, especially at curves, to correct advancing cane with left foot. This makes her gait more march in appearance. Cues to swing her left arm/loosen posture and she is able to do so. Her carmen slows with increased gait distance d/t c/ o right greater than left lower leg pain and she reports vascular impairment. She is on a blood thinner and previous surgeon could not open up vessels d/t decreased vessel availability and integrity. Skin is dry and warm to touch, no discoloration, mild spider veins lower legs--PT just looks at calves LTG Duration 6 weeks 2 Inspector Aide Goal (LTG) Pt will perform WNLs on a standardized balance test to decrease fall risk by 04/22/21. 03/08/21: Cannot test today d/t orthostasis and symptoms LTG Duration 6 weeks 1 Group Home Goal (LTG) Pt will deny falls for 2 months to decrease injury risk by 04/22/21. LTG Duration 6 weeks Assessment Summary Assessment Orthostatic assessment in right UE today: supine: 129/63 , 64; standing 80/56, 88; standing 1' 105/62, 82. Pt is light-headed on the way up. Gait training today and education. Gait limited by leg pain. See gait comments for assessment of legs after gait. Recommend provider make a recommendation about compression hose. Physical Therapy Plan Frequency and Duration Frequency of Treatment 1-2x/Week Duration of Treatment 6 weeks Plan of Care Start Date 03/08/21 Plan of Care End Date 04/24/21 Therapeutic Interventions Therapeutic Interventions Balance Training,Canalithic Repositioning,Gait Training, Home Exercise Program,Joint Mobilizations,Manual Therapy, Neuromuscular Re-education, Patient/Caregiver Education, Self-Care/Home Management,Soft Tissue Mobilization, Therapeutic Activities, Therapeutic Exercises Modalities Cold Pack/Ice Massage,Hot Packs Other Referrals/Consults Referrals/Consults Recommended Recommend provider make a comment about compression hose Next Visit Focus/Plan Next Note Type Treatment Note Next Visit Plan Review pt's exercises and consider open book With primary PT: Buteyko breathing, consider progressive relaxation technique VOMS testing
--- NOTE | 2021-03-27 11:20 | PT.OTN ---
Current Diagnoses Other chronic pain (03/27/21) Spinal stenosis, cervical region (03/27/21) Headache, unspecified (03/27/21) Physical Therapy Treatment Note PT-OP-A Visit Information Start: 02/06/21 15:44 Freq: Status: Active Protocol: Document 03/27/21 10:46 SP (Rec: 03/27/21 11:26 SP [id number]) Out-Patient Physical Therapy Visit Information Visit Information Visit Type Treatment Note Visit Note Medicare 02/24 before KX Pt 12 min late for appt. Visit Start Time 10:42 Visit Stop Time 11:20 Total Visit Minutes 38 Visit Number 11 Number of CRUDE TESTER Visits 1 Evaluation Information Evaluation Date 02/07/21 Precautions Precautions High fall risk, orthostatis Potential latex allergy Pt reports vascular issues between knees and hips B femoral area with spider web veins vs larger veins and told stent not possible due to deteriorated. PT-OP-B Current Condition Start: 02/06/21 15:44 Freq: Status: Active Protocol: Document 02/07/21 10:33 MB (Rec: 02/07/21 10:54 MB [id number]) Current Condition History of Current Condition Onset Date July 2017 Current Complaints Headaches and neck pain, falling History of Current Condition Pt reports increased imbalance for about 9 months. The doctor told her to increase her gait width. She has had increasing headache and neck pain. She is going to see a neurologist 03/14/21 and will ask about headache, neck and decreased memory. Her last fall that caused injury was two years ago and she scraped her left cheek. She has had controlled rolled falls d/t imbalance. She furniture walks . She lives alone. She has a friend who calls or visits everyday and she has a cottage behind her house and those people check on her often. Pt had gotten injections for her back from Dr. Tee in 2018 and 2018 and she had a short course of PT for her back in 2018. She did not think that is was helpful. In July of 2017, she had a fall down 5 steps and hit the right side of her face. She has scoliosis, pinched sciatic nerve and two disc herniations as well as arthritis. All the pain started then. Pt reports 8/10 posterior head and neck pain and LBP. Her headaches start in the back and radiate around to her eyes, sinuses, jaws and teeth . She does not have TMJ per an oral specialist. The eye pain gets bad. She has had no acute visual changes. She had cataracts removed years ago. Other PMH includes latex allergy, hearing aids, right calf DVT 2011, left distal UE DVT two years ago. Pt takes Xarelto. Last year, pt had parathyroid surgery, osteopenia. She states she has BP changes but she is not clear what kind of BP changes she has. Pt occ wakes up at night d/t headache pain. She sleeps on her sides or stomach with the other side propped up. Prior Treatments and Tests 02/02/21: cervical MRI: multilevel DDD and canal and foraminal stenosis worst at C3 -C4, C4-5, C5-6 02/02/21: MRI brain: unremarkable Treatment Goals Patient/Caregiver Goals To reduce the headaches PT-OP-C Subjective Start: 02/06/21 15:44 Freq: Status: Active Protocol: Document 03/27/21 10:46 SP (Rec: 03/27/21 11:26 SP [id number]) OP-PT Subjective Patient Comments Patient Comments Pt 12 min late for appt today, knew had one at 1030 but lost track of time. She reports she is not leaning on cane as much and improved patterning with LLE better but does have to slow down during R turns for safety positioning. She reports not doing as well today, feeling weak today and BPs all over the place. pre activity: BP 138/68 HR 52BPM. Pt states getting help from friends with groceries and not leaving house due to not feeling as much endurance. Pt reports is saddened that her physicians are not concerned with her BPs as she is and not understand why. PT-OP-J Posture/Palpation/Skin Start: 02/06/21 15:44 Freq: Status: Active Protocol: Document 02/07/21 10:33 MB (Rec: 02/07/21 13:00 MB [id number]) Posture Evaluation Comments Posture Comments Standing posture: rounded shoulder, Dowager's hump, increased thoracic kyphosis, anterior tilt pelvis, left shoulder higher, kyphoscoliosis PT-OP-K Range of Motion Start: 02/06/21 15:44 Freq: Status: Active Protocol: Document 02/07/21 10:33 MB (Rec: 02/07/21 13:00 MB [id number]) Cervical Spine Range of Motion Cervical Spine Active Testing Position Standing Flexion 35 Extension 22 Rotation Left 55 Rotation Right 60 Lateral Flexion Left 20 Lateral Flexion Right 30 Comments Thoracic rotation in sitting is mildly more limited to the left PT-OP-M Strength Start: 02/06/21 15:44 Freq: Status: Active Protocol: Document 02/07/21 10:33 MB (Rec: 02/07/21 13:00 MB [id number]) Shoulder Strength Shoulder Manual Muscle Testing Left Flexion 4 Good Abduction (C5) 5 Normal Right Flexion 4 Good Abduction (C5) 5 Normal Elbow/Forearm Strength Elbow and Forearm Manual Muscle Testing Left Flexion (C6) 4 Good Extension (C7) 5 Normal Pronation 4 Good Supination 4 Good Right Flexion (C6) 4 Good Extension (C7) 4 Good Pronation 4 Good Supination 4 Good PT-OP-Q Treatments Start: 02/06/21 15:44 Freq: Status: Active Protocol: Document 03/27/21 10:46 SP (Rec: 03/27/21 11:26 SP [id number]) Therapeutic Exercises Supine Exercises pec stretch Supine Exercise Name B flexion, Ts, 1/2 Xs and pect stretch Side bilateral Resistance AROM this tx, ran out time, didn't have band in room Reps/Minutes 30 sec pect stretch, 3reps each side X, Ts. Comments provided with non-latex TB with altered hand loops to relieve thumb pressur Sidelying Exercises open book Sidelying Exercise Name head w/ extended arm painfree range- added to HEP Side bilateral Reps/Minutes x5 breath Comments cued slow pace movement ROM scapular glide and good pec stretch Sitting Exercises wall posture Sitting Exercise Name challenged maintaining, tires quickly Comments caused LBP so stopped Cervical Rot with head knods Sitting Exercise Name reviewed HEP Side bilateral Reps/Minutes 2 x 5 nods each side. Comments good form UT, LS stretch Sitting Exercise Name reviewed HEP Side bilateral Resistance AROM Reps/Minutes 30 x1 each Comments good form cervical retraction Sitting Exercise Name seated then at wall Reps/Minutes 5x 5s hold Gait Training Gait Activity SPC/ Hurrycane Description 2pt gait: straight corners, 360 deg turns Device Used SPC (hurry cane in car, late for appt forgot) Level of Assistance SBA Surface firm Distance/Duration 451 ft in 3 min 51 sec Treatment Focus 2pt gait, turns, balance, foot clearance Comments R foot caught carpet edge x1, self recovery using SPC, occasional cues for self corrections proper patternng after R turns, small steps / slow down for proper patterning for safety balance. Cued for SPC for balance support, as distance progressed she tends to lean on SPC little more due to tiring. PT-OP-T Assessment and Plan Start: 02/06/21 15:44 Freq: Status: Active Protocol: Document 03/27/21 10:46 SP (Rec: 03/27/21 11:26 SP [id number]) Physical Therapy Assessment Goals 4 Fci Goal (LTG) Pt will perform progressive HEP including headache self- care techniques, Buteyko breathing, flexibility, postural, balance and gait exercises with I to improve pain and safety by 04/22/21. 03/08/21: Pt is performing progressive exercises at home LTG Duration 6 weeks 3 Fci Goal (LTG) Pt will gait train at least 1000 feet in 6 minutes with or without LRAD to improve community ambulation by . 03/23/22: Pt gait trains 797 feet in 6 minutes with hurrycane in right hand. She stops often, especially at curves, to correct advancing cane with left foot. This makes her gait more march in appearance. Cues to swing her left arm/loosen posture and she is able to do so. Her carmen slows with increased gait distance d/t c/ o right greater than left lower leg pain and she reports vascular impairment. She is on a blood thinner and previous surgeon could not open up vessels d/t decreased vessel availability and integrity. Skin is dry and warm to touch, no discoloration, mild spider veins lower legs--PT just looks at calves LTG Duration 6 weeks 2 Substation Engineer Goal (LTG) Pt will perform WNLs on a standardized balance test to decrease fall risk by 04/22/21. 03/08/21: Cannot test today d/t orthostasis and symptoms LTG Duration 6 weeks 1 Substation Engineer Goal (LTG) Pt will deny falls for 2 months to decrease injury risk by 04/22/21. LTG Duration 6 weeks Assessment Summary Assessment Pt had decreased endurance in gait, tiring quicker this tx, R foot caught carpet edge but self recovery, slows down and stops if needed durign R turns for safe patterning SPC on R with LLE. Tx focused on HEP seated stretching of neck with good feedback compliant at home with hand outs, gait shorter distance tolerated, required seated rest for recovery. Initiated open book to HEP with good feedback, cued for set up and slow pacing movement with statement feels relaxing, gives good stretch to pec and into mid and lumbar spine. Will reassess next tx and give hand out printed last tx but forgot to take with her. CRUDE TESTER recommended to be sure if endurance doesn't improve to notify physican. Physical Therapy Plan Frequency and Duration Frequency of Treatment 1-2x/Week Duration of Treatment 6 weeks Plan of Care Start Date 03/08/21 Plan of Care End Date 04/24/21 Therapeutic Interventions Therapeutic Interventions Balance Training,Canalithic Repositioning,Gait Training, Home Exercise Program,Joint Mobilizations,Manual Therapy, Neuromuscular Re-education, Patient/Caregiver Education, Self-Care/Home Management,Soft Tissue Mobilization, Therapeutic Activities, Therapeutic Exercises Modalities Cold Pack/Ice Massage,Hot Packs Other Referrals/Consults Referrals/Consults Recommended Recommend provider make a comment about compression hose - pt hasn't persued yet Next Visit Focus/Plan Next Note Type Treatment Note Next Visit Plan Review HEP seaed, side, gait progress endurance w/ AD trng. With primary PT: Buteyko breathing, consider progressive relaxation technique VOMS testing
--- NOTE | 2021-03-30 10:32 | PT.OTN ---
Current Diagnoses Other chronic pain (03/30/21) Spinal stenosis, cervical region (03/30/21) Headache, unspecified (03/30/21) Physical Therapy Treatment Note PT-OP-A Visit Information Start: 02/06/21 15:44 Freq: Status: Active Protocol: Document 03/30/21 09:48 MB (Rec: 03/30/21 10:26 MB [id number]) Out-Patient Physical Therapy Visit Information Visit Information Visit Type Treatment Note Visit Note Medicare 03/26 before KX Visit Start Time 09:48 Visit Stop Time 10:30 Total Visit Minutes 42 Visit Number 12 Number of DANCE STUDIO MANAGER Visits 0 Evaluation Information Evaluation Date 02/07/21 Precautions Precautions High fall risk, orthostatis Potential latex allergy Pt reports vascular issues between knees and hips B femoral area with spider web veins vs larger veins and told stent not possible due to deteriorated. PT-OP-B Current Condition Start: 02/06/21 15:44 Freq: Status: Active Protocol: Document 02/07/21 10:33 MB (Rec: 02/07/21 10:54 MB [id number]) Current Condition History of Current Condition Onset Date July 2017 Current Complaints Headaches and neck pain, falling History of Current Condition Pt reports increased imbalance for about 9 months. The doctor told her to increase her gait width. She has had increasing headache and neck pain. She is going to see a neurologist 03/14/21 and will ask about headache, neck and decreased memory. Her last fall that caused injury was two years ago and she scraped her left cheek. She has had controlled rolled falls d/t imbalance. She furniture walks . She lives alone. She has a friend who calls or visits everyday and she has a cottage behind her house and those people check on her often. Pt had gotten injections for her back from Dr. Tee in 2018 and 2019 and she had a short course of PT for her back in 2018. She did not think that is was helpful. In July of 2017, she had a fall down 5 steps and hit the right side of her face. She has scoliosis, pinched sciatic nerve and two disc herniations as well as arthritis. All the pain started then. Pt reports 8/10 posterior head and neck pain and LBP. Her headaches start in the back and radiate around to her eyes, sinuses, jaws and teeth . She does not have TMJ per an oral specialist. The eye pain gets bad. She has had no acute visual changes. She had cataracts removed years ago. Other PMH includes latex allergy, hearing aids, right calf DVT 2011, left distal UE DVT two years ago. Pt takes Xarelto. Last year, pt had parathyroid surgery, osteopenia. She states she has BP changes but she is not clear what kind of BP changes she has. Pt occ wakes up at night d/t headache pain. She sleeps on her sides or stomach with the other side propped up. Prior Treatments and Tests 02/02/21: cervical MRI: multilevel DDD and canal and foraminal stenosis worst at C3 -C4, C4-5, C5-6 02/02/21: MRI brain: unremarkable Treatment Goals Patient/Caregiver Goals To reduce the headaches PT-OP-C Subjective Start: 02/06/21 15:44 Freq: Status: Active Protocol: Document 03/30/21 09:48 MB (Rec: 03/30/21 10:26 MB [id number]) OP-PT Subjective Patient Comments Patient Comments Pt states that the headaches are better and she notices that she doesn't have one today. She states she is doing ROM exercises in sitting and she is getting some plantar fascia tightness and she had this before. PT-OP-J Posture/Palpation/Skin Start: 02/06/21 15:44 Freq: Status: Active Protocol: Document 02/07/21 10:33 MB (Rec: 02/07/21 13:00 MB [id number]) Posture Evaluation Comments Posture Comments Standing posture: rounded shoulder, Dowager's hump, increased thoracic kyphosis, anterior tilt pelvis, left shoulder higher, kyphoscoliosis PT-OP-K Range of Motion Start: 02/06/21 15:44 Freq: Status: Active Protocol: Document 02/07/21 10:33 MB (Rec: 02/07/21 13:00 MB [id number]) Cervical Spine Range of Motion Cervical Spine Active Testing Position Standing Flexion 35 Extension 22 Rotation Left 55 Rotation Right 60 Lateral Flexion Left 20 Lateral Flexion Right 30 Comments Thoracic rotation in sitting is mildly more limited to the left PT-OP-M Strength Start: 02/06/21 15:44 Freq: Status: Active Protocol: Document 02/07/21 10:33 MB (Rec: 02/07/21 13:00 MB [id number]) Shoulder Strength Shoulder Manual Muscle Testing Left Flexion 4 Good Abduction (C5) 5 Normal Right Flexion 4 Good Abduction (C5) 5 Normal Elbow/Forearm Strength Elbow and Forearm Manual Muscle Testing Left Flexion (C6) 4 Good Extension (C7) 5 Normal Pronation 4 Good Supination 4 Good Right Flexion (C6) 4 Good Extension (C7) 4 Good Pronation 4 Good Supination 4 Good PT-OP-Q Treatments Start: 02/06/21 15:44 Freq: Status: Active Protocol: Document 03/30/21 09:48 MB (Rec: 03/30/21 10:26 [id number]) Therapeutic Exercises Supine Exercises Buteyko breathing Supine Exercise Name Ed pt in theory and performance of ex 1, diaphragm breathing Comments See assessment for comments Sidelying Exercises open book Side bilateral Reps/Minutes x10 each side Comments Better with pillow between knees PT-OP-T Assessment and Plan Start: 02/06/21 15:44 Freq: Status: Active Protocol: Document 03/30/21 09:48 MB (Rec: 03/30/21 10:26 [id number]) Physical Therapy Assessment Rehab Potential Rehabilitation Potential Fair Evaluation Complexity Number of Personal Factors/Comorbidities 1-2 Number of Body Systems Impaired 3 Clinical Presentation at Evaluation Unstable Impairments Impairments Activity Tolerance,Balance, Functional Activities, Functional Mobility,Gait,Pain, Posture,ROM,Soft Tissue Mobility,Strength,Transfers, Vestibular Other Impairments Personal factors include waking up with cat each night to give cat a snack and orthostasis. Body systems affected include memory, musculoskeletal and cardiac. Her clinical presentation is unstable. Other Concerns Fall Risk Yes Goals 4 Detention Goal (LTG) Pt will perform progressive HEP including headache self- care techniques, Buteyko breathing, flexibility, postural, balance and gait exercises with I to improve pain and safety by 04/22/21. 03/08/21: Pt is performing progressive exercises at home LTG Duration 6 weeks 3 Specialty Plant Supervisor Goal (LTG) Pt will gait train at least 1000 feet in 6 minutes with or without LRAD to improve community ambulation by . 03/23/22: Pt gait trains 797 feet in 6 minutes with hurrycane in right hand. She stops often, especially at curves, to correct advancing cane with left foot. This makes her gait more march in appearance. Cues to swing her left arm/loosen posture and she is able to do so. Her carmen slows with increased gait distance d/t c/ o right greater than left lower leg pain and she reports vascular impairment. She is on a blood thinner and previous surgeon could not open up vessels d/t decreased vessel availability and integrity. Skin is dry and warm to touch, no discoloration, mild spider veins lower legs--PT just looks at calves LTG Duration 6 weeks 2 Specialty Plant Supervisor Goal (LTG) Pt will perform WNLs on a standardized balance test to decrease fall risk by 04/22/21. 03/08/21: Cannot test today d/t orthostasis and symptoms LTG Duration 6 weeks 1 Detention Goal (LTG) Pt will deny falls for 2 months to decrease injury risk by 04/22/21. LTG Duration 6 weeks Assessment Summary Assessment Buteyko breathing initiated today and pt responds well initially. Performed with pt supine with head and neck supported and wedge under legs , mouth paper taped. Ed pt to let tip of tongue touch roof of mouth. HR and O2 sats in right index before treatment: 59 BPM and 99%. Fingers are cold and reader does not con't to read. 1 rep: 14 sec. Next, ed pt on diaphragm movement with breathing and placed book on stomach. She is at baseline a very strong rib breather. 2nd rep: 16 sec and diaphragm inflates more with inhalation and book on stomach but chest does move some. Cues for slowing breathing as pt does tend to breathe rather rapidly. Pt to con't to practice breathing at home. Ed in slow supine to sit d/t history of severe orthostasis. Physical Therapy Plan Frequency and Duration Frequency of Treatment 1-2x/Week Duration of Treatment 6 weeks Plan of Care Start Date 03/08/21 Plan of Care End Date 04/24/21 Therapeutic Interventions Therapeutic Interventions Balance Training,Canalithic Repositioning,Gait Training, Home Exercise Program,Joint Mobilizations,Manual Therapy, Neuromuscular Re-education, Patient/Caregiver Education, Self-Care/Home Management,Soft Tissue Mobilization, Therapeutic Activities, Therapeutic Exercises Modalities Cold Pack/Ice Massage,Hot Packs Other Referrals/Consults Referrals/Consults Recommended Recommend provider make a comment about compression hose Next Visit Focus/Plan Next Note Type Treatment Note Next Visit Plan Progress postural exercises for strengthening intrascapular and shoulder areas Review Buteyko breathing Consider progressive relaxation technique VOMS testing if appropriate
--- NOTE | 2021-04-11 09:00 | PT.OTN ---
Current Diagnoses Other chronic pain (04/11/21) Spinal stenosis, cervical region (04/11/21) Headache, unspecified (04/11/21) Physical Therapy Treatment Note PT-OP-A Visit Information Start: 02/06/21 15:44 Freq: Status: Active Protocol: Document 04/11/21 08:19 MB (Rec: 04/11/21 09:00 MB [id number]) Out-Patient Physical Therapy Visit Information Visit Information Visit Type Treatment Note Visit Note Medicare 04/26 before KX Late to appointment Visit Start Time 08:19 Visit Stop Time 09:00 Total Visit Minutes 41 Visit Number 13 Number of LABORATORY TECH Visits 0 Evaluation Information Evaluation Date 02/07/21 Precautions Precautions High fall risk, orthostatis Potential latex allergy Pt reports vascular issues between knees and hips B femoral area with spider web veins vs larger veins and told stent not possible due to deteriorated. PT-OP-B Current Condition Start: 02/06/21 15:44 Freq: Status: Active Protocol: Document 02/07/21 10:33 MB (Rec: 02/07/21 10:54 MB [id number]) Current Condition History of Current Condition Onset Date July 2017 Current Complaints Headaches and neck pain, falling History of Current Condition Pt reports increased imbalance for about 9 months. The doctor told her to increase her gait width. She has had increasing headache and neck pain. She is going to see a neurologist 03/14/21 and will ask about headache, neck and decreased memory. Her last fall that caused injury was two years ago and she scraped her left cheek. She has had controlled rolled falls d/t imbalance. She furniture walks . She lives alone. She has a friend who calls or visits everyday and she has a cottage behind her house and those people check on her often. Pt had gotten injections for her back from Dr. Tee in 2018 and 2018 and she had a short course of PT for her back in 2018. She did not think that is was helpful. In July of 2017, she had a fall down 5 steps and hit the right side of her face. She has scoliosis, pinched sciatic nerve and two disc herniations as well as arthritis. All the pain started then. Pt reports 8/10 posterior head and neck pain and LBP. Her headaches start in the back and radiate around to her eyes, sinuses, jaws and teeth . She does not have TMJ per an oral specialist. The eye pain gets bad. She has had no acute visual changes. She had cataracts removed years ago. Other PMH includes latex allergy, hearing aids, right calf DVT 2011, left distal UE DVT two years ago. Pt takes Xarelto. Last year, pt had parathyroid surgery, osteopenia. She states she has BP changes but she is not clear what kind of BP changes she has. Pt occ wakes up at night d/t headache pain. She sleeps on her sides or stomach with the other side propped up. Prior Treatments and Tests 02/02/21: cervical MRI: multilevel DDD and canal and foraminal stenosis worst at C3 -C4, C4-5, C5-6 02/02/21: MRI brain: unremarkable Treatment Goals Patient/Caregiver Goals To reduce the headaches PT-OP-C Subjective Start: 02/06/21 15:44 Freq: Status: Active Protocol: Document 04/11/21 08:19 MB (Rec: 04/11/21 09:00 MB [id number]) OP-PT Subjective Patient Comments Patient Comments Pt states that she feels sick. She feels stomach sick, like nausea, that happens with the blood pressure stuff. Her systolic BP was over 200 last night and was 140 this morning . Pt states that she was supposed to have an ECHO yesterday but they called her to cancel because they were down a person. She will have a mammogram and US and respiratory therapist. PT-OP-J Posture/Palpation/Skin Start: 02/06/21 15:44 Freq: Status: Active Protocol: Document 02/07/21 10:33 MB (Rec: 02/07/21 13:00 MB [id number]) Posture Evaluation Comments Posture Comments Standing posture: rounded shoulder, Dowager's hump, increased thoracic kyphosis, anterior tilt pelvis, left shoulder higher, kyphoscoliosis PT-OP-K Range of Motion Start: 02/06/21 15:44 Freq: Status: Active Protocol: Document 02/07/21 10:33 MB (Rec: 02/07/21 13:00 MB [id number]) Cervical Spine Range of Motion Cervical Spine Active Testing Position Standing Flexion 35 Extension 22 Rotation Left 55 Rotation Right 60 Lateral Flexion Left 20 Lateral Flexion Right 30 Comments Thoracic rotation in sitting is mildly more limited to the left PT-OP-M Strength Start: 02/06/21 15:44 Freq: Status: Active Protocol: Document 02/07/21 10:33 MB (Rec: 02/07/21 13:00 MB [id number]) Shoulder Strength Shoulder Manual Muscle Testing Left Flexion 4 Good Abduction (C5) 5 Normal Right Flexion 4 Good Abduction (C5) 5 Normal Elbow/Forearm Strength Elbow and Forearm Manual Muscle Testing Left Flexion (C6) 4 Good Extension (C7) 5 Normal Pronation 4 Good Supination 4 Good Right Flexion (C6) 4 Good Extension (C7) 4 Good Pronation 4 Good Supination 4 Good PT-OP-Q Treatments Start: 02/06/21 15:44 Freq: Status: Active Protocol: Document 04/11/21 08:19 MB (Rec: 04/11/21 09:00 [id number]) Cardio Equipment Upper Body Ergometer (UBE) Duration (Minutes) 10 Other 1' forward and 1' backward Therapeutic Exercises Sitting Exercises sit<> stands Equipment Used Mesh chair and hands crossed to arms across body Comments 6 reps in 30 sec no hands; second set, stops LOB Gait Training Gait Activity 6MWT Comments Pt gait trains 911 feet in 6 minutes with cane in right hand and decreasing carmen with increasing time walking. Pt reports throbbing pain in right calf from old vascular issues and DVT. She denies light-headedness. She stops to get left foot and right hand in sequence and has mild decrease in speed with turning corners. Self-Care/Home Management Treatment Education Other Education Con't walk with hurrycane, con 't follow-ups with doctors for other work-ups, increase sit to stands to as many as she can without UE support in 30 sec 1-2x/day, will review further PT exercises in future treatments, call a little more than 24 hours in advance if feeling poorly and need to cancel PT appointments, keep drinking non-caffeinated fluids and eating small meals 3x/day PT-OP-T Assessment and Plan Start: 02/06/21 15:44 Freq: Status: Active Protocol: Document 04/11/21 08:19 MB (Rec: 04/11/21 09:00 [id number]) Physical Therapy Assessment Rehab Potential Rehabilitation Potential Fair Evaluation Complexity Number of Personal Factors/Comorbidities 1-2 Number of Body Systems Impaired 3 Clinical Presentation at Evaluation Unstable Impairments Impairments Activity Tolerance,Balance, Functional Activities, Functional Mobility,Gait,Pain, Posture,ROM,Soft Tissue Mobility,Strength,Transfers, Vestibular Other Impairments Personal factors include waking up with cat each night to give cat a snack and orthostasis. Body systems affected include memory, musculoskeletal and cardiac. Her clinical presentation is unstable. Other Concerns Fall Risk Yes Goals 4 Hotel Manager Goal (LTG) Pt will perform progressive HEP including headache self- care techniques, [place] breathing, flexibility, postural, balance and gait exercises with I to improve pain and safety by 04/22/21. 03/08/21: Pt is performing progressive exercises at home LTG Duration 6 weeks 3 Hotel Manager Goal (LTG) Pt will gait train at least 1000 feet in 6 minutes with or without LRAD to improve community ambulation by . 03/23/22: Pt gait trains 797 feet in 6 minutes with hurrycane in right hand. She stops often, especially at curves, to correct advancing cane with left foot. This makes her gait more march in appearance. Cues to swing her left arm/loosen posture and she is able to do so. Her carmen slows with increased gait distance d/t c/ o right greater than left lower leg pain and she reports vascular impairment. She is on a blood thinner and previous surgeon could not open up vessels d/t decreased vessel availability and integrity. Skin is dry and warm to touch, no discoloration, mild spider veins lower legs--PT just looks at calves LTG Duration 6 weeks 2 Jail Goal (LTG) Pt will perform WNLs on a standardized balance test to decrease fall risk by 04/22/21. 03/08/21: Cannot test today d/t orthostasis and symptoms LTG Duration 6 weeks 1 Hotel Manager Goal (LTG) Pt will deny falls for 2 months to decrease injury risk by 04/22/21. LTG Duration 6 weeks Assessment Summary Assessment BP and HR in left UE in sitting before UBE: 121/58, 67 . After 10' UBE: 131/55, 63. After 6MWT: 140/120, 50. Pt reports throbbing ache in calf with gait d/t vascular history. After sitting 2': 129 /59, 62. Pt has four more visits after this one and she would like to d/c PT at that time d/t brain fog and multiple medical appointments happening in work-up. PT provided orthostasis education handouts again today. Physical Therapy Plan Frequency and Duration Frequency of Treatment 1-2x/Week Duration of Treatment 6 weeks Plan of Care Start Date 03/08/21 Plan of Care End Date 04/24/21 Therapeutic Interventions Therapeutic Interventions Balance Training,Canalithic Repositioning,Gait Training, Home Exercise Program,Joint Mobilizations,Manual Therapy, Neuromuscular Re-education, Patient/Caregiver Education, Self-Care/Home Management,Soft Tissue Mobilization, Therapeutic Activities, Therapeutic Exercises Modalities Cold Pack/Ice Massage,Hot Packs Other Referrals/Consults Referrals/Consults Recommended Recommend provider make a comment about compression hose Next Visit Focus/Plan Next Note Type Treatment Note Next Visit Plan Review exercises
--- NOTE | 2021-04-21 11:12 | PT.OTN ---
Current Diagnoses Other chronic pain (04/21/21) Spinal stenosis, cervical region (04/21/21) Headache, unspecified (04/21/21) Physical Therapy Treatment Note PT-OP-A Visit Information Start: 02/06/21 15:44 Freq: Status: Active Protocol: Document 04/21/21 10:30 MB (Rec: 04/21/21 11:11 MB [id number]) Out-Patient Physical Therapy Visit Information Visit Information Visit Type Treatment Note Visit Note Medicare 05/27 before KX Visit Start Time 10:30 Visit Stop Time 11:10 Total Visit Minutes 40 Visit Number 14 Number of TRAVELING BUYER Visits 0 Evaluation Information Evaluation Date 02/07/21 Precautions Precautions High fall risk, orthostatis Potential latex allergy Pt reports vascular issues between knees and hips B femoral area with spider web veins vs larger veins and told stent not possible due to deteriorated. PT-OP-B Current Condition Start: 02/06/21 15:44 Freq: Status: Active Protocol: Document 02/07/21 10:33 MB (Rec: 02/07/21 10:54 MB [id number]) Current Condition History of Current Condition Onset Date July 2017 Current Complaints Headaches and neck pain, falling History of Current Condition Pt reports increased imbalance for about 9 months. The doctor told her to increase her gait width. She has had increasing headache and neck pain. She is going to see a neurologist 03/14/21 and will ask about headache, neck and decreased memory. Her last fall that caused injury was two years ago and she scraped her left cheek. She has had controlled rolled falls d/t imbalance. She furniture walks . She lives alone. She has a friend who calls or visits everyday and she has a cottage behind her house and those people check on her often. Pt had gotten injections for her back from Dr. Tee in 2018 and 2019 and she had a short course of PT for her back in 2018. She did not think that is was helpful. In July of 2017, she had a fall down 5 steps and hit the right side of her face. She has scoliosis, pinched sciatic nerve and two disc herniations as well as arthritis. All the pain started then. Pt reports 8/10 posterior head and neck pain and LBP. Her headaches start in the back and radiate around to her eyes, sinuses, jaws and teeth . She does not have TMJ per an oral specialist. The eye pain gets bad. She has had no acute visual changes. She had cataracts removed years ago. Other PMH includes latex allergy, hearing aids, right calf DVT 2011, left distal UE DVT two years ago. Pt takes Xarelto. Last year, pt had parathyroid surgery, osteopenia. She states she has BP changes but she is not clear what kind of BP changes she has. Pt occ wakes up at night d/t headache pain. She sleeps on her sides or stomach with the other side propped up. Prior Treatments and Tests 02/02/21: cervical MRI: multilevel DDD and canal and foraminal stenosis worst at C3 -C4, C4-5, C5-6 02/02/21: MRI brain: unremarkable Treatment Goals Patient/Caregiver Goals To reduce the headaches PT-OP-C Subjective Start: 02/06/21 15:44 Freq: Status: Active Protocol: Document 04/21/21 10:30 MB (Rec: 04/21/21 11:11 MB [id number]) OP-PT Subjective Patient Comments Patient Comments Pt states that she has an appointment with Dr. Gerber on Saturday that conflicts with PT and that this will be her last appointment. She is doing her PT exercises. Her understanding of her recent diagnostics of breast US, and mammogram, and ECHO were negative. She said that the desktop operator said her lungs are fine. PT-OP-J Posture/Palpation/Skin Start: 02/06/21 15:44 Freq: Status: Active Protocol: Document 02/07/21 10:33 MB (Rec: 02/07/21 13:00 MB [id number]) Posture Evaluation Comments Posture Comments Standing posture: rounded shoulder, Dowager's hump, increased thoracic kyphosis, anterior tilt pelvis, left shoulder higher, kyphoscoliosis PT-OP-K Range of Motion Start: 02/06/21 15:44 Freq: Status: Active Protocol: Document 02/07/21 10:33 MB (Rec: 02/07/21 13:00 MB [id number]) Cervical Spine Range of Motion Cervical Spine Active Testing Position Standing Flexion 35 Extension 22 Rotation Left 55 Rotation Right 60 Lateral Flexion Left 20 Lateral Flexion Right 30 Comments Thoracic rotation in sitting is mildly more limited to the left PT-OP-M Strength Start: 02/06/21 15:44 Freq: Status: Active Protocol: Document 02/07/21 10:33 MB (Rec: 02/07/21 13:00 MB [id number]) Shoulder Strength Shoulder Manual Muscle Testing Left Flexion 4 Good Abduction (C5) 5 Normal Right Flexion 4 Good Abduction (C5) 5 Normal Elbow/Forearm Strength Elbow and Forearm Manual Muscle Testing Left Flexion (C6) 4 Good Extension (C7) 5 Normal Pronation 4 Good Supination 4 Good Right Flexion (C6) 4 Good Extension (C7) 4 Good Pronation 4 Good Supination 4 Good PT-OP-Q Treatments Start: 02/06/21 15:44 Freq: Status: Active Protocol: Document 04/21/21 10:30 MB (Rec: 04/21/21 11:11 MB [id number]) Gait Training Gait Activity 6MWT Comments 04/21/21: BP in LUE before gait : 103/60, 74. No cane today. Pt gait trains 1012 feet in 6 minutes and pt reports pain in right greater than left leg in her calves with gait training greater than 5'. Her gait becomes less steady with narrowing base of support and decreased foot clearance with increased gait time and distance. BP and HR in LUE after gait: 122/59, 64. Her gait pattern is similar throughout treatment and she does not have her cane today Neuro Re-Education Treatment Balance Activities FGA Comments FGA score is 10/30, indicating increased risk for falls and she has trouble with all tasks including regular gait, changing carmen, obstacles, steps, tandem, backwards walking and walking with eyes closed and head turns. She is not safe to do balance exercises on her own yet at home and she wishes to d/c PT and so this is not worked on as much as PT would like by time of d/c Self-Care/Home Management Treatment Education Other Education Ed pt to con't to use the rail on the steps at home, to take care moving from supine to upright in the morning and when getting up, check BP when she has symptoms of KAY and dizziness, ask doctor about compression and vascularity of her legs, con't using cane when leaving the house, con't with PT HEP PT-OP-T Assessment and Plan Start: 02/06/21 15:44 Freq: Status: Active Protocol: Document 04/21/21 10:30 MB (Rec: 04/21/21 11:11 MB [id number]) Physical Therapy Assessment Rehab Potential Rehabilitation Potential Fair Evaluation Complexity Number of Personal Factors/Comorbidities 1-2 Number of Body Systems Impaired 3 Clinical Presentation at Evaluation Unstable Impairments Impairments Activity Tolerance,Balance, Functional Activities, Functional Mobility,Gait,Pain, Posture,ROM,Soft Tissue Mobility,Strength,Transfers, Vestibular Other Impairments Personal factors include waking up with cat each night to give cat a snack and orthostasis. Body systems affected include memory, musculoskeletal and cardiac. Her clinical presentation is unstable. Other Concerns Fall Risk Yes Goals 4 Mcc Goal (LTG) Pt will perform progressive HEP including headache self- care techniques, Buteyko breathing, flexibility, postural, balance and gait exercises with I to improve pain and safety by 04/22/21. 04/21/21: Pt is performing cervical rotation with nods, upper traps stretch, Buteyko breathing is hard but she is working on breathing with her mouth shut, she is doing sit to stands, open book and she hasn't been going for many walks with the weather. She is using tennis ball for massage . LTG Duration Met 3 Mcc Goal (LTG) Pt will gait train at least 1000 feet in 6 minutes with or without LRAD to improve community ambulation by . 04/21/21: BP in LUE before gait : 103/60, 74. No cane today. Pt gait trains 1012 feet in 6 minutes and pt reports pain in right greater than left leg in her calves with gait training greater than 5'. Her gait becomes less steady with narrowing base of support and decreased foot clearance with increased gait time and distance. BP and HR in LUE after gait: 122/59, 64. 03/23/22: Pt gait trains 797 feet in 6 minutes with hurrycane in right hand. She stops often, especially at curves, to correct advancing cane with left foot. This makes her gait more march in appearance. Cues to swing her left arm/loosen posture and she is able to do so. Her carmen slows with increased gait distance d/t c/ o right greater than left lower leg pain and she reports vascular impairment. She is on a blood thinner and previous surgeon could not open up vessels d/t decreased vessel availability and integrity. Skin is dry and warm to touch, no discoloration, mild spider veins lower legs--PT just looks at calves LTG Duration Met 2 Airplane Coverer Goal (LTG) Pt will perform WNLs on a standardized balance test to decrease fall risk by 04/22/21. 04/21/21: FGA score is 10/30, indicating high risk for falls 03/08/21: Cannot test today d/t orthostasis and symptoms LTG Duration Not met 1 Mcc Goal (LTG) Pt will deny falls for 2 months to decrease injury risk by 04/22/21. 04/21/21: Pt denies falls at home for two months. LTG Duration Met Assessment Summary Assessment Since starting PT, pt's headaches are better. She is getting a bad headache around 1 p.m. Once again, PT feels that the vascularity of pt's legs might be looked into given history of DVTs, unsuccessful stenting attempt, ache in legs with walking, severe BP changes and orthostasis. Pt has met many PT goals since starting PT but her balance con't to be very poor. PT would have liked to work more on this but pt is ready to d/c per her report. She follows up with her PCP next week. Will d/c PT. Physical Therapy Plan Other Referrals/Consults Referrals/Consults Recommended Recommend provider make a comment about compression hose
== END 2021-05-09 08:28 | disposition home or self-care (01) ==
LOC: PHYS 10:30
PROVIDERS: Family Provider Family Medicine; PCP Family Medicine; Referring Provider Family Medicine; Visit Provider Family Medicine
DX: R51.9 Headache, unspecified (principal); G89.29 Other chronic pain; M48.02 Spinal stenosis, cervical region
CPT/HCPCS: 97110; 97112; 97116; 97140; 97162; 97530; 97535

== ENCOUNTER → 2021-06-02 08:44 | Outpatient (CLI) | payer MEDICARE, OTHER, SELFPAY ==
[2021-06-02 10:12] LABS: Alanine Aminotransferase 19 IU/L (<35); Albumin 4.5 g/dL (3.5-5.0); Albumin Globulin Ratio 1.3 (1.0-2.8); Alkaline Phosphatase 70 U/L (38-126); Aspartate Aminotransferase 28 IU/L (14-36); BUN Creatinine Ratio 18.7 (6-22); Bilirubin Total 0.5 mg/dL (0.2-1.3); Blood Urea Nitrogen 26 mg/dL (7-17); Calcium 10.3 mg/dL (8.4-10.2); Carbon Dioxide 25 mmol/L (22-32); Chloride 107 mmol/L (98-107); Estimated Glomerular Filt Rate 36.9 mL/min (>60); Globulin 3.5 g/dL (1.7-4.1); Glucose 108 mg/dL (80-110); HEMOLYSIS < 15 (0-50); Potassium 4.5 mmol/L (3.4-5.1); Sodium 139 mmol/L (137-145)
[2021-06-03 10:22] LABS: Calcium 10.5 mg/dL (8.7-10.3); Parathyroid Hormone, Intact 82 pg/mL (15-65)
== END ==
PROVIDERS: Family Provider Family Medicine; PCP Family Medicine; Referring Provider Family Medicine; Visit Provider Family Medicine
DX: N18.32 Chronic kidney disease, stage 3b (principal); D35.1 Benign neoplasm of parathyroid gland
CPT/HCPCS: 36415; 80053; 82310; 83970

== ENCOUNTER → 2021-08-31 08:13 | Outpatient (CLI) | payer MEDICARE, OTHER, SELFPAY ==
--- NOTE | 2021-08-31 08:15 | DI.US.S_ITS ---
PROCEDURE: US CAROTID DOPPLER BI INDICATIONS: STENOSIS TECHNIQUE: Color and pulse Doppler interrogation was performed of both carotid systems, with image documentation and velocity measurements. COMPARISON: None. FINDINGS: Stenosis calculations are based on SRU (Society of Radiologists in Ultrasound) criteria. Right side: Brachial blood pressure: 147/67 mm Hg. Common carotid artery peak systolic velocity: 72 cm/sec (prior 74 cm/s). Internal carotid artery peak systolic velocity: 309 cm/sec (prior 139 cm/s). Internal carotid artery end diastolic velocity: 83 cm/sec (prior 27 cm/s). External carotid artery peak systolic velocity: 110 cm/sec (prior 75 cm/s). ICA/CCA peak systolic ratio: 4.3 (prior 1.9). Knowles scale imaging description: Moderate atherosclerotic change can be seen. Percent internal carotid artery stenosis: Greater than 70%. Vertebral artery: No image seen. Left side: Brachial blood pressure: 134/63 mm Hg. Common carotid artery peak systolic velocity: 56 cm/sec (prior 57 cm/s). Internal carotid artery peak systolic velocity: 302 cm/sec (prior 224 cm/s). Internal carotid artery end diastolic velocity: 50 cm/sec (prior 34 cm/s). External carotid artery peak systolic velocity: 176 cm/sec (prior 163 cm/s). ICA/CCA peak systolic ratio: 5.5 (prior 4). Knowles scale imaging description: At least moderate atherosclerotic change can be seen. Percent internal carotid artery stenosis: Greater than 70%. Vertebral artery: Flow direction is antegrade. IMPRESSION: Greater than 70% stenosis is seen involving each carotid artery by velocity criteria. Vascular surgery referral is recommended. Dictated by: Quan Delatorre M.D. on 08/31/2021 at 9:24 Approved by: Quan Delatorre M.D. on 08/31/2021 at 9:28
[2021-08-31 09:56] LABS: Add Manual Diff / Slide Review NO; Basophils Absolute Auto 100 /uL (0-100); Basophils Percent Auto 0.8 % (0-2); Eosinophils Absolute Auto 100 /uL (0-450); Eosinophils Percent Auto 2.3 % (2-4); Hematocrit 36.5 % (36-46); Hemoglobin 12.1 g/dL (12.0-16.0); Lymphocytes Absolute Auto 1500 /uL (1100-4500); Lymphocytes Percent Auto 23.7 % (25-40); Mean Corpuscular HGB Conc 33.2 % (30-36); Mean Corpuscular Hemoglobin 31.9 PG (26-34); Monocytes Absolute Auto 500 /uL (0-900); Neutrophils Absolute Auto 4300 /uL (1500-7000); Neutrophils Percent Auto 66.2 % (50-75); Platelet Count 246 X10^3/uL (150-400); Red Cell Distribution Width 13.1 % (11.6-14.8); White Blood Cell Count 6.5 X10^3/uL (4.5-11.0)
[2021-08-31 10:07] LABS: Alanine Aminotransferase 16 IU/L (<35); Albumin 4.6 g/dL (3.5-5.0); Albumin Globulin Ratio 1.6 (1.0-2.8); Alkaline Phosphatase 60 U/L (38-126); Aspartate Aminotransferase 21 IU/L (14-36); BUN Creatinine Ratio 27.1 (6-22); Bilirubin Total 0.3 mg/dL (0.2-1.3); Blood Urea Nitrogen 48 mg/dL (7-17); Calcium 10.5 mg/dL (8.4-10.2); Carbon Dioxide 23 mmol/L (22-32); Chloride 105 mmol/L (98-107); Estimated Glomerular Filt Rate 29 mL/min (>60); Globulin 2.8 g/dL (1.7-4.1); Glucose 100 mg/dL (80-110); HEMOLYSIS < 15 (0-50); Sodium 138 mmol/L (137-145); Total Protein 7.4 g/dL (6.3-8.2)
[2021-08-31 10:13] LABS: Potassium 5.5 mmol/L (3.4-5.1)
[2021-08-31 10:25] LABS: Free T4, Direct Thyroxine 1.15 ng/dL (0.78-2.19)
[2021-08-31 10:39] LABS: Thyroid Stimulating Hormone 1.01 uIU/mL (0.47-4.68)
[2021-08-31 10:41] LABS: Ferritin 564 ng/mL (11-264)
[2021-08-31 10:55] LABS: Vitamin B12 231 pg/mL (239-931)
[2021-09-01 08:42] LABS: Calcium 10.4 mg/dL (8.7-10.3); Parathyroid Hormone, Intact 69 pg/mL (15-65)
== END ==
PROVIDERS: Family Provider Family Medicine; PCP Family Medicine; Referring Provider Family Medicine; Visit Provider Family Medicine
DX: I10 Essential (primary) hypertension (principal); E21.3 Hyperparathyroidism, unspecified; N18.9 Chronic kidney disease, unspecified; I65.23 Occlusion and stenosis of bilateral carotid arteries
CPT/HCPCS: 36415; 80053; 82310; 82607; 82728; 83970; 84439; 84443; 85025; 93880

== ENCOUNTER 2021-09-23 09:04 | Inpatient (IN) | payer MEDICARE, OTHER, SELFPAY ==
[2021-09-23] VITALS (14 sets, daily range): BP systolic 126–176; BP diastolic 56–76; PULSE 51–60; RESP 12–23; TEMP 36.1–37.1; O2SAT 94–100; BMI 24.6; BMI 24.7
--- NOTE | 2021-09-23 09:17 | DI.RAD.S_ITS ---
PROCEDURE: XR HIP W PEL IF DONE RT 2V INDICATIONS: fall TECHNIQUE: To views of the hip were acquired. COMPARISON: Merged With [facility], , HIP 2V RIGHT, 10/14/2006, 11:32. FINDINGS: Bones: Subcapital right femoral neck fracture noted with impaction. Pelvic ring intact. Unremarkable bony mineralization. Soft tissues: No suspicious soft tissue calcifications or masses. IMPRESSION: Subcapital impacted right femoral neck fracture Approved by: Steven Woodward M.D. on 09/23/2021 at 9:51
--- NOTE | 2021-09-23 09:24 | ED_ITS ---
HPI - Fall General Chief Complaint: Fall Stated Complaint: GLF, right hip pain Time Seen by Provider: 09/23/21 09:22 Source: patient, EMS and old records reviewed Mode of arrival: EMS Limitations: no limitations History of Present Illness HPI Narrative: This is a 76-year-old female with history of pulmonary emboli on Xarelto, hypothyroidism and hyperthyroidism, dyslipidemia with known atherosclerosis and hypertension. Patient presents today with right hip pain after having a ground level fall. She was trying to get her CT back into the house when she tripped over it falling onto her right side. She states she did not hit her head she denies any neck pain. She had pain in her right shoulder trap reason but states that this has resolved. She has no pain with movement at the shoulder. Patient denies any back pain she states the pain is localized to the right hip. She denies numbness or tingling. No weakness. Patient denies chest pain or shortness of breath no nausea or vomiting. No headache. No other GI or urinary symptoms. She states she has had multiple blood clots in the past she is unaw are of clear exacerbating factors they have typically been in her extremities. She does not believe she has had genetic testing. Patient has had prior parathyroid removed, tonsillectomy, cataracts, appendectomy, carpal tunnel release but no cardiac stents, no pacemakers or intra-abdominal surgeries besides appendectomy. No tobacco, last alcohol was several years ago, no illicit. Dr. Gerber is her primary care physician. Her last dose of Xarelto was yesterday morning, she last ate or drink anything at 2:00 a.m. today. Related Data Home Medications Medication Instructions Recorded Confirmed multivitamin-iron 9 mg-folic acid 1 tab PO Q DAY ##0 03/20/11 09/23/21 400 mcg-calcium and minerals tablet (Thera M Plus (ferrous fumarate)) ferrous sulfate 325 mg (65 mg 325 mg PO DAILY 03/19/18 09/23/21 iron) tablet triamcinolone acetonide 0.1 % 1 applic topical DAILY 07/20/19 09/23/21 topical ointment aspirin 81 mg tablet,delayed 81 mg PO DAILY 06/20/20 09/23/21 release (Adult Low Dose Aspirin) cyclosporine 0.05 % eye drops in a 1 drp EYE-BOTH BID 06/20/20 09/23/21 dropperette Previous Rx's Medication Instructions Recorded disabled parking permit #1 ea 10/06/19 tizanidine 2 mg tablet 2 mg PO TID PRN muscle spasticity 01/27/20 #60 tabs citalopram 40 mg tablet See Rx Instructions .Route 10/26/20 .COMPLEX #90 tabs levothyroxine 88 mcg tablet 88 mcg PO DAILY #90 tabs 02/06/21 lisinopril 10 mg tablet See Rx Instructions .Route 03/20/21 .COMPLEX #90 tabs rivaroxaban 15 mg tablet (Xarelto) 15 mg PO DAILY #90 tabs 03/20/21 amlodipine 5 mg tablet 5 mg PO BEDTIME #90 tabs 04/25/21 rosuvastatin 5 mg tablet See Rx Instructions .Route 07/20/21 .COMPLEX #90 tabs Allergies Allergy/AdvReac Type Severity Reaction Status Date / Time tramadol Allergy Severe Anaphylaxis Verified 03/08/21 11:19 hydrocodone [HYDROCODONE] Allergy Intermediate NAUSEA / Verified 03/08/21 11:19 VOMITING Sulfa (Sulfonamide Allergy Mild Hives Verified 03/08/21 11:19 Antibiotics) [SULFA (SULFONAMIDE ANTIBIOTICS)] morphine [MORPHINE] AdvReac Mild Vomiting Verified 03/08/21 11:19 Review of Systems Review of Systems ROS Unobtainable: All systems reviewed & are unremarkable except as noted in HPI and below Patient History Medical History Acne Breast cyst Breast nodule Carotid stenosis Cataracts, bilateral (~2013) Chicken pox (~1949) Chronic anticoagulation Chronic headache Chronic kidney disease Facet arthropathy, lumbosacral Facial abrasion (~10/07/19) Foraminal stenosis of cervical region Fractures (~1977) Headache Hyperlipidemia Hyperparathyroidism Hypertension (~1999) Measles (~1953) Mumps (~1953) Paresthesia of left upper extremity Pruritic rash Pulmonary nodules Surgical History Anesthesia History of cataract removal with insertion of prosthetic lens (~2013) Status post appendectomy Status post dilation and curettage Status post tonsillectomy and adenoidectomy Status post tubal ligation Family History Father Cancer Grandfather Heart disease Grandmother Stroke Mother Cancer Brother No problems noted. Grandfather No problems noted. Grandmother No problems noted. Social History household members: none Smoking Status: Never smoker alcohol intake: current substance use type: does not use Smoking Status: Never smoker alcohol intake frequency: a few times a month Substance Use Type: does not use Exam Narrative Exam Narrative: GEN: well nourished, well appearing female, alert and oriented x 3, patient appears to be in mild distress. HEENT: Atraumatic, pupils are equal round reactive to light, extraocular movements are intact, nares are clear. Throat is clear without any exudates, erythema, tonsillar enlargement or uvular deviation No cervical vertebral tenderness notice, full range of motion. Nexus criteria is negative. HEART: Regular rate and rhythm without murmur, clicks, rubs. LUNGS:Lungs clear to auscultation, no wheezes, rales, crackles, chest moves symmetrically, nontender to palpation. No tachypnea accessory muscle use. ABD:bowel sounds normal, soft, non-tender, no guarding, rebound, rigidity, no masses noted, no hepatosplenomegaly, pelvic rock is negative. :No CVA tenderness MSCL: Patient has tenderness over the right hip, she has cap refill less than 2 seconds bilaterally. Sensation intact bilaterally. Normal dorsiflexion and plantar flexion. Patient is externally rotated and slightly shortened on the right. Left leg is moving normally. Patient does not have any bony tenderness over the upper extremities or shoulders with normal range of motion and muscle strength. NEURO:CN 2-12 intact, sensation normal SKIN: No rash, erythema or other changes appreciated. Initial Vital Signs Initial Vital Signs: Vital Signs Pulse Rate 56 L 09/23/21 09:12 Blood Pressure 169/70 H 09/23/21 09:12 Pulse Oximetry 100 09/23/21 09:12 Course Orders Ordered: ED Orders 09/23/21 11:59 XR pelvis 1-2V Stat Amlodipine Besylate (Amlodipine 5 Mg Tablet) 5 mg PO BEDTIME [facility] Last Admin: 09/23/21 20:02 Dose: 5 mg Documented By: AGW Aspirin (Aspirin Ec 81 Mg Tablet) 81 mg PO DAILY [facility] Atorvastatin Calcium (Atorvastatin 20 Mg Tablet) 10 mg PO BEDTIME [facility] Last Admin: 09/23/21 20:02 Dose: 10 mg Documented By: ARABELLA Citalopram Hydrobromide (Citalopram 10 Mg Tablet) 40 mg PO DAILY [facility] Ferrous Sulfate (Ferrous Sulfate 325 Mg Tablet) 325 mg PO DAILY [facility] Levothyroxine Sodium (Levothyroxine 88 Mcg Tablet) 88 mcg PO DAILY [facility] Lisinopril (Lisinopril 10 Mg Tablet) 10 mg PO DAILY [facility] Multivitamins (Multivitamin 1 Tablet) 1 tab PO DAILY [facility] Nf - Cyclosporine 0. (05 % Ophth Drop) 1 drop EYE-BOTH BID [facility] Tizanidine HCl (Tizanidine 4 Mg Tablet) 2 mg PO TID PRN PRN Reason: muscle spasticity Last Admin: 09/23/21 20:02 Dose: 2 mg Documented By: Admin: 09/23/21 14:44 Dose: 2 mg Documented By: DARY Discontinued Medications Diazepam (Diazepam 10 Mg/2 Ml Syringe) 1 mg IV NOW ONE Stop: 09/23/21 11:39 Last Admin: 09/23/21 11:41 Dose: 1 mg Documented By: NIKHIL Diphenhydramine HCl (Diphenhydramine 50 Mg/Ml Vial) 25 mg IV NOW ONE Stop: 09/23/21 14:16 Last Admin: 09/23/21 14:41 Dose: 25 mg Documented By: DARY Enoxaparin Sodium (Enoxaparin 40 Mg/0.4 Ml Syringe) 40 mg SUBCUT DAILY [facility] Fentanyl (Fentanyl 100 Mcg/2 Ml Inj) 25 mcg IV NOW ONE Stop: 09/23/21 10:43 Last Admin: 09/23/21 11:30 Dose: 25 mcg Documented By: NIKHIL Fentanyl (Fentanyl 100 Mcg/2 Ml Inj) 24 mcg 0.35 mcg/kg (24 mcg) IV NOW ONE Stop: 09/23/21 14:16 Last Admin: 09/23/21 14:41 Dose: 24 mcg Documented By: DARY Lactated Ringer's (Lactated Ringers) 1,000 mls @ 125 mls/hr IV CONT [facility] Last Infusion: 09/23/21 13:43 Dose: 125 mls/hr Documented By: Admin: 09/23/21 11:32 Dose: 125 mls/hr Documented By: NIKHIL Sodium Chloride (Normal Saline 0.9%) 1,000 mls @ 100 mls/hr IV CONT [facility] Last Admin: 09/23/21 17:10 Dose: Not Given Documented By: LUZ MARIAK Naloxone HCl (Naloxone 0.4 Mg/Ml Vial) 0.2 mg IV Q2MIN PRN PRN Reason: Opiate Reversal Ondansetron HCl (Ondansetron 4 Mg/2 Ml Inj) 4 mg IV NOW ONE Stop: 09/23/21 10:42 Last Admin: 09/23/21 11:31 Dose: 4 mg Documented By: NIKHIL Consultations Consultation #1: Dr. Leach, hospitalist reviewed if orthopedic surgery is requesting admission to medicine she is happy to accept. I will confirm. Discussed patient has history of CKD, some atherosclerosis but no cardiac stents had valuation of carotids in the past. Renal function appears stable. She is on Eliquis for PEs. Head CT was not obtained she states she did not hit her head today, chest x-ray pelvic x-ray included with right femur fracture. Consultation #2: Dr. Macdonald, orthopedic surgery as per Medicine to admit with ortho consult. They will check on patient Xarelto to see how long will be before she can go to OR. NPO for now. Vital Signs Vital signs: Vital Signs - 8 hr 09/23/21 09:17 09/23/21 09:12 09/23/21 09:12 Temperature 97.0 F L Pulse Rate 55 L 56 L Respiratory Rate 13 Blood Pressure 169/70 H 169/70 H Pulse Oximetry 100 100 Oxygen Delivery Method Room Air 09/23/21 09:40 09/23/21 10:00 09/23/21 10:30 Temperature Pulse Rate 56 L 55 L 58 L Respiratory Rate Blood Pressure Pulse Oximetry 100 100 Oxygen Delivery Method 09/23/21 11:00 09/23/21 11:30 09/23/21 11:35 Temperature Pulse Rate 51 L 56 L Respiratory Rate Blood Pressure 160/70 H Pulse Oximetry 100 99 Oxygen Delivery Method 09/23/21 11:35 09/23/21 12:00 09/23/21 12:00 Temperature Pulse Rate 55 L 55 L Respiratory Rate 23 Blood Pressure 159/70 H Pulse Oximetry 100 100 Oxygen Delivery Method MDM - Fall Lab Data Result diagrams: 09/23/21 10:03 09/23/21 10:03 Labs: Lab Results 09/23/21 09/23/21 09/23/21 Range/Units 10:03 10:03 10:03 WBC 8.1 (4.5-11.0) X10^3/uL RBC 3.52 L (4.0-5.2) X10^6/uL Hgb 11.3 L (12.0-16.0) g/dL Hct 33.7 L (36-46) % MCV 95.6 (80-100) fL MCH 32.1 (26-34) PG MCHC 33.6 (30-36) % RDW 12.9 (11.6-14.8) % Plt Count 212 (150-400) X10^3/uL Neut % (Auto) 75.2 H (50-75) % Lymph % (Auto) 16.3 L (25-40) % Zapata % (Auto) 6.2 (3-14) % Eos % (Auto) 1.7 L (2-4) % Baso % (Auto) 0.6 (0-2) % Neut # (Auto) 6100 (6261-7700) /uL Lymph # (Auto) 1300 (6952-5968) /uL Zapata # (Auto) 500 (0-900) /uL Eos # (Auto) 100 (0-450) /uL Baso # (Auto) 100 (0-100) /uL PT 12.1 (10.1-12.7) SECONDS INR 1.1 (0.9-1.3) APTT 31 D (26.4-36.2) SECONDS Sodium 138 (137-145) mmol/L Potassium 5.0 (3.4-5.1) mmol/L Chloride 109 H (98-107) mmol/L Carbon Dioxide 23 (22-32) mmol/L BUN 33 H (7-17) mg/dL Creatinine 1.21 H (0.52-1.04) mg/dL Estimated GFR 46 L (>60) mL/min BUN/Creatinine Ratio 27.3 H (6-22) Glucose 101 (80-110) mg/dL Calcium 10.1 (8.4-10.2) mg/dL Total Bilirubin 0.4 (0.2-1.3) mg/dL AST 23 (14-36) IU/L ALT 20 (<35) IU/L Alkaline Phosphatase 58 (38-126) U/L Total Protein 7.1 (6.3-8.2) g/dL Albumin 4.1 (3.5-5.0) g/dL Globulin 3.0 (1.7-4.1) g/dL Albumin/Globulin Ratio 1.4 (1.0-2.8) SARS-CoV-2 (PCR) (Negative) Blood Type Antibody Screen 09/23/21 09/23/21 Range/Units 10:18 11:05 WBC (4.5-11.0) X10^3/uL RBC (4.0-5.2) X10^6/uL Hgb (12.0-16.0) g/dL Hct (36-46) % MCV (80-100) fL MCH (26-34) PG MCHC (30-36) % RDW (11.6-14.8) % Plt Count (150-400) X10^3/uL Neut % (Auto) (50-75) % Lymph % (Auto) (25-40) % Zapata % (Auto) (3-14) % Eos % (Auto) (2-4) % Baso % (Auto) (0-2) % Neut # (Auto) (1794-9742) /uL Lymph # (Auto) (5325-7972) /uL Zapata # (Auto) (0-900) /uL Eos # (Auto) (0-450) /uL Baso # (Auto) (0-100) /uL PT (10.1-12.7) SECONDS INR (0.9-1.3) APTT (26.4-36.2) SECONDS Sodium (137-145) mmol/L Potassium (3.4-5.1) mmol/L Chloride (98-107) mmol/L Carbon Dioxide (22-32) mmol/L BUN (7-17) mg/dL Creatinine (0.52-1.04) mg/dL Estimated GFR (>60) mL/min BUN/Creatinine Ratio (6-22) Glucose (80-110) mg/dL Calcium (8.4-10.2) mg/dL Total Bilirubin (0.2-1.3) mg/dL AST (14-36) IU/L ALT (<35) IU/L Alkaline Phosphatase (38-126) U/L Total Protein (6.3-8.2) g/dL Albumin (3.5-5.0) g/dL Globulin (1.7-4.1) g/dL Albumin/Globulin Ratio (1.0-2.8) SARS-CoV-2 (PCR) Negative (Negative) Blood Type A Positive Antibody Screen Negative Imaging Data Extremity x-ray #1: My Impression: Right femoral neck fx. Chest x-ray: Radiologist's Impression: e (More??) Close Pelvis X-Ray 09/23/21 Chest X-Ray (Signed) Woodward,Steven - 09/23/21 Hip X-Ray (Signed) Woodward,Steven - 09/23/21 Carotid Doppler Study (Signed) Quan Delatorre - 08/31/21 DI Result CC 06/28/21 Echocardiogram Ultrasound (Signed) Star Loomis - 04/17/21 Mammogram Diagnostic (Signed) Gus Love - 04/14/21 Breast Ultrasound (Signed) Gus Love - 04/14/21 Chest CTA (Signed) Ana Napier - 03/08/[address] (Signed) Bernardino Ruano - 03/08/21 Chest X-Ray (Signed) Bernardino Ruano - 03/08/21 Cervical Spine MRI (Signed) Isabella Ta - 02/02/21 Brain MRI (Signed) Quan Delatorre - 02/02/21 Mammogram Screening (Signed) Ronaldo Tracy - 01/03/21 Outside DI 05/04/20 Facet Joint Injection X-Ray (Signed) Jamin Harmon - 02/09/20 DI Result CC 01/14/20 Mammogram Screening (Signed) Michell Aceves - 12/15/19 Injection Lumbar, Sacrum (Signed) Darren Villanueva - 12/01/19 Injection Lumbar, Sacrum (Signed) Jamin Harmon - 09/03/19 Abdomen/Pelvis CT (Signed) Jamin Harmon - 08/26/19 Lumbar Spine X-Ray (Signed) Darren Villanueva - 08/25/19 Injection Lumbar, Sacrum (Signed) Darren Villanueva - 06/09/19 Cervical/Thoracic Injection (Signed) Ana Napier - 04/07/19 Cervical Spine X-Ray (Signed) Darren Villanueva - 03/03/19 DI Result CC 02/06/19 Cervical Spine MRI (Signed) Reno Fuller - 01/06/19 Mammogram Screening (Signed) Giovany Guerrero - 12/11/18 DI Result CC 12/10/[address] (Signed) Ana Napier - 12/06/18 Peripheral Vascular Ultrasound (Signed) Isabella Ta - 09/28/18 Facet Joint Injection X-Ray (Signed) Jamin Harmon - 09/02/18 SI JT Injection (Signed) Jamin Harmon - 07/16/18 Injection Lumbar, Sacrum (Signed) Darren Villanueva - 05/13/18 Facet Joint Injection X-Ray (Signed) Jamin Harmon - 04/09/18 Carotid Doppler Study (Signed) Darren Villanueva - 03/03/18 Cervical Spine MRI (Signed) Isabella Ta - 02/25/18 Mammogram Screening (Signed) Ronaldo Tracy - 12/04/17 Facet Joint Injection X-Ray (Signed) Jamin Harmon - 11/13/17 Injection Lumbar, Sacrum (Signed) Jamin Harmon - 10/16/17 Lumbar Spine X-Ray (Signed) Ana Napier - 10/15/17 Lumbar Spine MRI (Signed) Ana Napier - 08/29/17 Brain MRI (Signed) Jamin Harmon - 08/20/17 Launch?[address] [address] XRay Report Signed Patient: Heather Walker MR#: [id number] : 1945 Acct:[id number] Age/Sex: 76 / F Date of Service: 09/23/21 Loc: ED Accession Number: [id number] ?? Procedure: XR chest 1V Ordering Provider: Sherri Herring D.O. PROCEDURE:? XR CHEST 1V ? INDICATIONS:? hip fx, fall ? TECHNIQUE:? One view of the chest was acquired.? ? COMPARISON:? [facility], CR, XR CHEST 1V, 03/08/2021, 11:28. ? FINDINGS:? ? Surgical changes and devices:? None.? ? Lungs and pleura:? Lungs are clear.? No pleural effusions or pneumothorax.? ? Mediastinum:? Mediastinal contours appear normal.? Heart size is normal.? Atherosclerotic vascular calcification noted in the aortic arch. ? Bones and chest wall:? No suspicious bony lesions.? Overlying soft tissues appear unremarkable.? ? IMPRESSION:? No acute cardiopulmonary findings ? ? ? Approved by: Steven Woodward M.D. on 09/23/2021 at 10:35 ECG Data Attestation: I personally reviewed and interpreted this ECG as follows: Interpretation: Sinus bradycardia cm arrhythmia, rate of 53 CO 204 QRS 84 and QTC of 410. Patient may have some additional beats on EKG verses. MDM Narrative Medical decision making narrative: This is a 76-year-old female with mechanical ground level fall with right hip fracture appears to require surgical repair. Patient is anticoagulated on Xarelto her last dose was about 24 hours ago, she has not eaten since 0 200. She does have some chronic kidney disease history of primary pulmonary emboli, hypertension, hyperparathyroidism and thyroid disease with known atherosclerosis of the carotids. Patient labs show some chronic kidney disease which appears stable, fairly stable anemia, no acute signs of infection. She did not have any changes today that suggest a different cause that mechanical fall. EKG and chest x-ray were obtained for medical clearance. General surgery and hospitalist were consulted. Spoke with Dr. Macdonald who does ask that we keep patient admitted under hospitalist, reviewed she is on Xarelto they will evaluate time frame in terms of OR and her anticoagulant. Hospitalist Dr. Leach accepts for admission. Discharge Plan Departure Patient Disposition: Admitted As Inpatient Clinical Impression: Closed fracture of right hip, CKD (chronic kidney disease) Admit Date/Time: 09/23/21 13:24 Admit Provider: Migel Leach
[2021-09-23 10:10] LABS: Add Manual Diff / Slide Review NO; Basophils Absolute Auto 100 /uL (0-100); Basophils Percent Auto 0.6 % (0-2); Eosinophils Absolute Auto 100 /uL (0-450); Eosinophils Percent Auto 1.7 % (2-4); Hematocrit 33.7 % (36-46); Hemoglobin 11.3 g/dL (12.0-16.0); Lymphocytes Absolute Auto 1300 /uL (1100-4500); Lymphocytes Percent Auto 16.3 % (25-40); Mean Corpuscular HGB Conc 33.6 % (30-36); Mean Corpuscular Hemoglobin 32.1 PG (26-34); Mean Corpuscular Volume 95.6 fL (80-100); Monocytes Absolute Auto 500 /uL (0-900); Monocytes Percent Auto 6.2 % (3-14); Neutrophils Absolute Auto 6100 /uL (1500-7000); Neutrophils Percent Auto 75.2 % (50-75); Platelet Count 212 X10^3/uL (150-400); Red Blood Cell Count 3.52 X10^6/uL (4.0-5.2); Red Cell Distribution Width 12.9 % (11.6-14.8); White Blood Cell Count 8.1 X10^3/uL (4.5-11.0)
[2021-09-23 10:20] LABS: INR 1.1 (0.9-1.3); Prothrombin Time 12.1 SECONDS (10.1-12.7)
[2021-09-23 10:22] LABS: PTT Partial Thromboplastin Tim 31 SECONDS (26.4-36.2)
[2021-09-23 10:24] LABS: Alanine Aminotransferase 20 IU/L (<35); Albumin 4.1 g/dL (3.5-5.0); Albumin Globulin Ratio 1.4 (1.0-2.8); Alkaline Phosphatase 58 U/L (38-126); Aspartate Aminotransferase 23 IU/L (14-36); BUN Creatinine Ratio 27.3 (6-22); Bilirubin Total 0.4 mg/dL (0.2-1.3); Blood Urea Nitrogen 33 mg/dL (7-17); Calcium 10.1 mg/dL (8.4-10.2); Carbon Dioxide 23 mmol/L (22-32); Chloride 109 mmol/L (98-107); Estimated Glomerular Filt Rate 46 mL/min (>60); Glucose 101 mg/dL (80-110); HEMOLYSIS < 15 (0-50); Sodium 138 mmol/L (137-145); Total Protein 7.1 g/dL (6.3-8.2)
[2021-09-23 10:41] LABS: COVID19 -Nasal RAPID Negative (Negative)
--- NOTE | 2021-09-23 10:41 | DI.RAD.S_ITS ---
PROCEDURE: XR CHEST 1V INDICATIONS: hip fx, fall TECHNIQUE: One view of the chest was acquired. COMPARISON: [facility], , XR CHEST 1V, 03/08/2021, 11:28. FINDINGS: Surgical changes and devices: None. Lungs and pleura: Lungs are clear. No pleural effusions or pneumothorax. Mediastinum: Mediastinal contours appear normal. Heart size is normal. Atherosclerotic vascular calcification noted in the aortic arch. Bones and chest wall: No suspicious bony lesions. Overlying soft tissues appear unremarkable. IMPRESSION: No acute cardiopulmonary findings Approved by: Steven Woodward M.D. on 09/23/2021 at 10:35
[2021-09-23] MEDS: fentaNYL 100 MCG/2 ML INJ 25 MCG IV (11:30)
[2021-09-23] MEDS: ONDANSETRON 4 MG/2 ML INJ IV ×2 (11:31→21:10)
[2021-09-23] MEDS: LACTATED RINGERS 1,000 ML 125 ML IV (11:32)
[2021-09-23] MEDS: diazePAM 10 MG/2 ML SYRINGE IV (11:41)
--- NOTE | 2021-09-23 11:59 | DI.RAD.S_ITS ---
PROCEDURE: XR PELVIS 1-2V INDICATIONS: Dr. Macdonald asks for repeat to catch femur farther down. TECHNIQUE: Single view(s) of the pelvis acquired. COMPARISON: [facility], CR, XR HIP W PEL IF DONE RT 2V, 09/23/2021, 9:08. FINDINGS: Bones: Subcapital impacted right femoral neck fracture is again noted. Proximal femurs intact Soft tissues: Visualized bowel gas pattern is normal. No suspicious soft tissue calcifications. IMPRESSION: Subcapital right femoral neck fracture. Proximal femoral diaphysis intact. Approved by: Steven Woodward M.D. on 09/23/2021 at 12:37
--- NOTE | 2021-09-23 12:58 | P.HP_ITS ---
History of Present Illness History of Present Illness Date Patient Seen: 09/23/21 Time Patient Seen: 12:59 Date of Onset of Symptoms: 09/23/21 Chief complaint: GLF, right hip pain Narrative: This is a 76-year-old female who tripped at home over a kidney cat and landed on her right hip. She noted the acute onset of significant right hip pain. She was transported to the emergency room for evaluation. She has a history of DVTs in the past. She had a right lower extremity DVT in 2011 when she was walking on a treadmill and had a 2nd episode of a DVT in an upper extremity which she thinks might be associated with a carpal tunnel surgery. She has been on Xarelto since then. She also has a history of parathyroid tumor and had resect ion of a parathyroid gland with improvement in her calcium. She has a supportive friend who also has power of contract attorney at bedside. Patient History Medical History Acne Breast cyst Breast nodule Carotid stenosis Cataracts, bilateral (~2013) Chicken pox (~1949) Chronic anticoagulation Chronic headache Chronic kidney disease Facet arthropathy, lumbosacral Facial abrasion (~10/07/19) Foraminal stenosis of cervical region Fractures (~1977) Headache Hyperlipidemia Hyperparathyroidism Hypertension (~1999) Measles (~1953) Mumps (~1953) Paresthesia of left upper extremity Pruritic rash Pulmonary nodules Surgical History Anesthesia History of cataract removal with insertion of prosthetic lens (~2013) Status post appendectomy Status post dilation and curettage Status post tonsillectomy and adenoidectomy Status post tubal ligation Family & Social History Family History Father Cancer Grandfather Heart disease Grandmother Stroke Mother Cancer Brother No problems noted. Grandfather No problems noted. Grandmother No problems noted. Safety & Behavioral: Feels Safe in Current Yes Environment Been Physically Hurt or No Threatened By a Person Tobacco & Substance use: Smoking Status Never smoker alcohol intake current alcohol intake frequency a few times a month Substance Use Type does not use Meds Home Medications and Allergies Home Medications Medication Instructions Recorded Confirmed Type multivitamin-iron 9 mg-folic acid 1 tab PO Q DAY ##0 03/20/11 02/06/21 History 400 mcg-calcium and minerals tablet (Thera M Plus (ferrous fumarate)) ferrous sulfate 325 mg (65 mg 325 mg PO DAILY 03/19/18 02/06/21 History iron) tablet triamcinolone acetonide 0.1 % topical 07/20/19 02/06/21 History topical ointment disabled parking permit #1 ea 10/06/19 02/06/21 Rx tizanidine 2 mg tablet 2 mg PO TID PRN muscle spasticity 01/27/20 02/06/21 Rx #60 tabs aspirin 81 mg tablet,delayed 81 mg PO DAILY 06/20/20 02/06/21 History release (Adult Low Dose Aspirin) cyclosporine 0.05 % eye drops in a 1 drp EYE-BOTH BID 06/20/20 02/06/21 History dropperette citalopram 40 mg tablet See Rx Instructions .Route 10/26/20 02/06/21 Rx .COMPLEX #90 tabs levothyroxine 88 mcg tablet 88 mcg PO DAILY #90 tabs 02/06/21 02/06/21 Rx lisinopril 10 mg tablet See Rx Instructions .Route 03/20/21 Rx .COMPLEX #90 tabs rivaroxaban 15 mg tablet (Xarelto) 15 mg PO DAILY #90 tabs 03/20/21 Rx amlodipine 5 mg tablet 5 mg PO BEDTIME #90 tabs 04/25/21 04/25/21 Rx rosuvastatin 5 mg tablet See Rx Instructions .Route 07/20/21 Rx .COMPLEX #90 tabs Allergies Allergy/AdvReac Type Severity Reaction Status Date / Time tramadol Allergy Severe Anaphylaxis Verified 03/08/21 11:19 hydrocodone [HYDROCODONE] Allergy Intermediate NAUSEA / Verified 03/08/21 11:19 VOMITING Sulfa (Sulfonamide Allergy Mild Hives Verified 03/08/21 11:19 Antibiotics) [SULFA (SULFONAMIDE ANTIBIOTICS)] morphine [MORPHINE] AdvReac Mild Vomiting Verified 03/08/21 11:19 Review of Systems Review of Systems Narrative: Denies recent chest pain or shortness of breath, notes that she occasionally walks with a walker but has been getting around well and has minimal pain and symptoms. She was not lightheaded dizzy or weak prior to her fall. Exam Vital Signs (past 8 hours): - 09/23/21 09:17 09/23/21 09:12 09/23/21 09:12 Temperature 97.0 F L Pulse Rate 55 L 56 L Respiratory Rate 13 Blood Pressure 169/70 H 169/70 H Pulse Oximetry 100 100 Oxygen Delivery Method Room Air 09/23/21 09:40 09/23/21 10:00 09/23/21 10:30 Temperature Pulse Rate 56 L 55 L 58 L Respiratory Rate Blood Pressure Pulse Oximetry 100 100 Oxygen Delivery Method 09/23/21 11:00 09/23/21 11:30 09/23/21 11:35 Temperature Pulse Rate 51 L 56 L Respiratory Rate Blood Pressure 160/70 H Pulse Oximetry 100 99 Oxygen Delivery Method 09/23/21 11:35 09/23/21 12:00 09/23/21 12:00 Temperature Pulse Rate 55 L 55 L Respiratory Rate 23 Blood Pressure 159/70 H Pulse Oximetry 100 100 Oxygen Delivery Method Oxygen Delivery Method Room Air Narrative Exam Narrative: HEENT is benign, cor regular rate and rhythm, lungs clear, neck is supple, she is alert and oriented she is resting comfortably in bed but she is obviously uncomfortable. She has severe pain with even light range of motion in the right hip her abdomen is soft and benign, she is able to fire toe flexors and extensors with trace motion of bilateral lower extremities her feet are warm with adequate capillary refill Objective Labs Result Diagrams: 09/23/21 10:03 09/23/21 10:03 Labs: Laboratory Results - last 24 hr 09/23/21 09/23/21 09/23/21 10:03 10:03 10:03 WBC 8.1 RBC 3.52 L Hgb 11.3 L Hct 33.7 L MCV 95.6 MCH 32.1 MCHC 33.6 RDW 12.9 Plt Count 212 Neut % (Auto) 75.2 H Lymph % (Auto) 16.3 L [place] % (Auto) 6.2 Eos % (Auto) 1.7 L Baso % (Auto) 0.6 Neut # (Auto) 6100 Lymph # (Auto) 1300 [place] # (Auto) 500 Eos # (Auto) 100 Baso # (Auto) 100 PT 12.1 INR 1.1 APTT 31 D Sodium 138 Potassium 5.0 Chloride 109 H Carbon Dioxide 23 BUN 33 H Creatinine 1.21 H Estimated GFR 46 L BUN/Creatinine Ratio 27.3 H Glucose 101 Calcium 10.1 Total Bilirubin 0.4 AST 23 ALT 20 Alkaline Phosphatase 58 Total Protein 7.1 Albumin 4.1 Globulin 3.0 Albumin/Globulin Ratio 1.4 SARS-CoV-2 (PCR) 09/23/21 10:18 WBC RBC Hgb Hct MCV MCH MCHC RDW Plt Count Neut % (Auto) Lymph % (Auto) [place] % (Auto) Eos % (Auto) Baso % (Auto) Neut # (Auto) Lymph # (Auto) [place] # (Auto) Eos # (Auto) Baso # (Auto) PT INR APTT Sodium Potassium Chloride Carbon Dioxide BUN Creatinine Estimated GFR BUN/Creatinine Ratio Glucose Calcium Total Bilirubin AST ALT Alkaline Phosphatase Total Protein Albumin Globulin Albumin/Globulin Ratio SARS-CoV-2 (PCR) Negative displaced right femoral neck fracture Assessment & Plan Assessment and plan (1) Closed fracture of right hip: Status: Acute (2) CKD (chronic kidney disease): Status: Acute (3) Hyperparathyroidism: Status: Acute (4) Chronic anticoagulation: Status: Chronic Assessment & Plan narrative: She has a displaced right femoral neck fracture. She is chronically on Xarelto. I have recommended a right hip partial replacement with or unipolar replacement. We discussed options in detail and make plan to do surgery tomorrow. She can have a regular diet today. She should be NPO past midnight. The nature of the procedure options risks benefits and complications were discussed in detail. She is very sensitive to narcotics and tramadol. She has tolerated very low. Dose fentanyl with Zofran as an anti nausea medication. She is having some ongoing spasms right now may be a candidate for muscle relaxant. The overall plan is for partial hip replacement will then mobilize her out of bed hopefully full weight-bearing on the right lower extremity and anticipate discharged to either home or rehab depending upon her clinical course. Surgery discussed in detail she consents of [facility] go ahead and get that scheduled. She should be off her anticoagulants today. We can restart her Xarelto in the postoperative. After we have adequate hemostasis. Time Spent With Patient Critical Care time: I spent a total of [] minutes of critical care time on this patient's care today; this time is exclusive of procedural time.
--- NOTE | 2021-09-23 13:51 | PM.HP.1 ---
History of Present Illness History of Present Illness Chief complaint: GLF, right hip pain Narrative: CC : hip pain fracture This is a 76-year-old female with h/o Hyperparathyroidism, Hyperlipidemia, CKD stage 2, she presented to ER after tripped at home over a cat and landed on her right hip.? Since then she started to have severe pain in hip. Now she is in hospital , was evaluated in ER and consulted by orthopedic team. She has closed R hip fracture. 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 Also, she has parathyroid tumor Patient denies any chest pain, shortness of breath, nausea, vomiting, diarrhea, constipation, cough, denies recent traveling, denies recent sick contacts. Her last dose of Xarelto was yesterday morning.? Patient History Medical History Acne Breast cyst Breast nodule Carotid stenosis Cataracts, bilateral (~2013) Chicken pox (~1948) Chronic anticoagulation Chronic headache Chronic kidney disease Facet arthropathy, lumbosacral Facial abrasion (~10/07/19) Foraminal stenosis of cervical region Fractures (~1977) Headache Hyperlipidemia Hyperparathyroidism Hypertension (~1999) Measles (~1953) Mumps (~1953) Paresthesia of left upper extremity Pruritic rash Pulmonary nodules Surgical History Anesthesia History of cataract removal with insertion of prosthetic lens (~2013) Status post appendectomy Status post dilation and curettage Status post tonsillectomy and adenoidectomy Status post tubal ligation Family & Social History Family History Father Cancer Grandfather Heart disease Grandmother Stroke Mother Cancer Brother No problems noted. Grandfather No problems noted. Grandmother No problems noted. Safety & Behavioral: Feels Safe in Current Yes Environment Been Physically Hurt or No Threatened By a Person Tobacco & Substance use: Smoking Status Never smoker alcohol intake current alcohol intake frequency a few times a month Substance Use Type does not use Meds Home Medications and Allergies Home Medications Medication Instructions Recorded Confirmed Type multivitamin-iron 9 mg-folic acid 1 tab PO Q DAY ##0 03/20/11 02/06/21 History 400 mcg-calcium and minerals tablet (Thera M Plus (ferrous fumarate)) ferrous sulfate 325 mg (65 mg 325 mg PO DAILY 03/19/18 02/06/21 History iron) tablet triamcinolone acetonide 0.1 % topical 07/20/19 02/06/21 History topical ointment disabled parking permit #1 ea 10/06/19 02/06/21 Rx tizanidine 2 mg tablet 2 mg PO TID PRN muscle spasticity 01/27/20 02/06/21 Rx #60 tabs aspirin 81 mg tablet,delayed 81 mg PO DAILY 06/20/20 02/06/21 History release (Adult Low Dose Aspirin) cyclosporine 0.05 % eye drops in a 1 drp EYE-BOTH BID 06/20/20 02/06/21 History dropperette citalopram 40 mg tablet See Rx Instructions .Route 10/26/20 02/06/21 Rx .COMPLEX #90 tabs levothyroxine 88 mcg tablet 88 mcg PO DAILY #90 tabs 02/06/21 02/06/21 Rx lisinopril 10 mg tablet See Rx Instructions .Route 03/20/21 Rx .COMPLEX #90 tabs rivaroxaban 15 mg tablet (Xarelto) 15 mg PO DAILY #90 tabs 03/20/21 Rx amlodipine 5 mg tablet 5 mg PO BEDTIME #90 tabs 04/25/21 04/25/21 Rx rosuvastatin 5 mg tablet See Rx Instructions .Route 07/20/21 Rx .COMPLEX #90 tabs Allergies Allergy/AdvReac Type Severity Reaction Status Date / Time tramadol Allergy Severe Anaphylaxis Verified 03/08/21 11:19 hydrocodone [HYDROCODONE] Allergy Intermediate NAUSEA / Verified 03/08/21 11:19 VOMITING Sulfa (Sulfonamide Allergy Mild Hives Verified 03/08/21 11:19 Antibiotics) [SULFA (SULFONAMIDE ANTIBIOTICS)] morphine [MORPHINE] AdvReac Mild Vomiting Verified 03/08/21 11:19 Review of Systems Review of Systems ROS: Yes All systems reviewed with the patient and are negative except as otherwise documented Eyes Eyes: Reports as per HPI ENT Ears, Nose, Mouth, and Throat: Yes as per HPI Cardiovascular Cardiovascular: Reports as per HPI Respiratory Respiratory: Reports as per HPI Gastrointestinal Gastrointestinal: Reports as per HPI Genitourinary Genitourinary: Reports as per HPI Musculoskeletal Musculoskeletal: Reports as per HPI Integumentary/Breasts Skin/Breast: Reports as per HPI Neurologic Neurologic: Reports as per HPI Psychiatric Psychiatric: Reports as per HPI Exam Vital Signs (past 8 hours): - 09/23/21 09:17 09/23/21 09:12 09/23/21 09:12 Temperature 97.0 F L Pulse Rate 55 L 56 L Respiratory Rate 13 Blood Pressure 169/70 H 169/70 H Pulse Oximetry 100 100 Oxygen Delivery Method Room Air 09/23/21 09:40 09/23/21 10:00 09/23/21 10:30 Temperature Pulse Rate 56 L 55 L 58 L Respiratory Rate Blood Pressure Pulse Oximetry 100 100 Oxygen Delivery Method 09/23/21 11:00 09/23/21 11:30 09/23/21 11:35 Temperature Pulse Rate 51 L 56 L Respiratory Rate Blood Pressure 160/70 H Pulse Oximetry 100 99 Oxygen Delivery Method 09/23/21 11:35 09/23/21 12:00 09/23/21 12:00 Temperature Pulse Rate 55 L 55 L Respiratory Rate 23 Blood Pressure 159/70 H Pulse Oximetry 100 100 Oxygen Delivery Method 09/23/21 13:44 Temperature 98.6 F Pulse Rate 58 L Respiratory Rate 12 Blood Pressure 176/76 H Pulse Oximetry 100 Oxygen Delivery Method Room Air Oxygen Delivery Method Room Air Const General: cooperative and well developed Orientation: alert, awake and oriented x3 HENMT Head: normocephalic and atraumatic Ears: external ears normal Nose: external nose normal Mouth: oral mucosae normal Eyes Pupils: PERRL EOM: EOM intact bilaterally Neck Neck: full ROM and supple Thyroid: thyroid normal Chest Chest: normal inspection of the chest Resp Auscultation: clear to auscultation bilaterally Cardio Rate: regular rate Rhythm: regular rhythm GI Inspection: normal to inspection Palpation: soft and No tender Auscultation: normal bowel sounds Back/Spine/Pelvis Back: normal to inspection Skin General: no rashes or lesions noted Neuro General: patient alert, patient awake, patient oriented x3, gait normal, moves all extremities and no focal motor deficits Cranial Nerves: CN's II-XI intact bilaterally Extrem General: normal to inspection, full ROM and no clubbing, cyanosis or edema Psych Mental Status: mental status grossly normal Mood: congruent mood Affect: normal affect Objective Labs Result Diagrams: 09/23/21 10:03 09/23/21 10:03 Labs: Laboratory Results - last 24 hr 09/23/21 09/23/21 09/23/21 10:03 10:03 10:03 WBC 8.1 RBC 3.52 L Hgb 11.3 L Hct 33.7 L MCV 95.6 MCH 32.1 MCHC 33.6 RDW 12.9 Plt Count 212 Neut % (Auto) 75.2 H Lymph % (Auto) 16.3 L [place] % (Auto) 6.2 Eos % (Auto) 1.7 L Baso % (Auto) 0.6 Neut # (Auto) 6100 Lymph # (Auto) 1300 [place] # (Auto) 500 Eos # (Auto) 100 Baso # (Auto) 100 PT 12.1 INR 1.1 APTT 31 D Sodium 138 Potassium 5.0 Chloride 109 H Carbon Dioxide 23 BUN 33 H Creatinine 1.21 H Estimated GFR 46 L BUN/Creatinine Ratio 27.3 H Glucose 101 Calcium 10.1 Total Bilirubin 0.4 AST 23 ALT 20 Alkaline Phosphatase 58 Total Protein 7.1 Albumin 4.1 Globulin 3.0 Albumin/Globulin Ratio 1.4 SARS-CoV-2 (PCR) Blood Type Antibody Screen 09/23/21 09/23/21 10:18 11:05 WBC RBC Hgb Hct MCV MCH MCHC RDW Plt Count Neut % (Auto) Lymph % (Auto) [place] % (Auto) Eos % (Auto) Baso % (Auto) Neut # (Auto) Lymph # (Auto) [place] # (Auto) Eos # (Auto) Baso # (Auto) PT INR APTT Sodium Potassium Chloride Carbon Dioxide BUN Creatinine Estimated GFR BUN/Creatinine Ratio Glucose Calcium Total Bilirubin AST ALT Alkaline Phosphatase Total Protein Albumin Globulin Albumin/Globulin Ratio SARS-CoV-2 (PCR) Negative Blood Type A Positive Antibody Screen Negative Assessment & Plan Assessment & Plan narrative: Acute closed hip fracture -evaluated by ortho -NPO at midnight - holding Xarelto - pain meds as needed Hyperlipidemia -continue home meds Hyperparathyroidism -continue home meds Hypothyroidism -continue levothyroxin CKD stage 2 -cr 1.4 - BMP daily Depression -continue citalopram DVT prophylaxis: lovenox 40 mg sq Code status: full discussed with ER physician, pt and rn Time Spent With Patient Critical Care time: I spent a total of [] minutes of critical care time on this patient's care today; this time is exclusive of procedural time.
[2021-09-23] MEDS: diphenhydrAMINE 50 MG/ML VIAL 25 MG IV (14:41)
[2021-09-23] MEDS: fentaNYL 100 MCG/2 ML INJ 24 MCG IV (14:41)
[2021-09-23] MEDS: TIZANIDINE 4 MG TABLET 2 MG PO ×2 (14:44→20:02)
[2021-09-23] MEDS: ATORVASTATIN 20 MG TABLET 10 MG PO (20:02)
[2021-09-23] MEDS: AMLODIPINE 5 MG TABLET PO (20:02)
[2021-09-23] MEDS: fentaNYL 100 MCG/2 ML INJ 50 MCG IV (21:10)
[2021-09-23] MEDS: diphenhydrAMINE 25 MG TABLET PO (21:10)
[2021-09-24] VITALS (13 sets, daily range): BP systolic 99–155; BP diastolic 45–66; PULSE 55–88; RESP 16–20; TEMP 35.7–37; O2SAT 93–100; BMI 24.7
[2021-09-24] MEDS: fentaNYL 100 MCG/2 ML INJ 50 MCG IV ×2 (00:22→05:00)
[2021-09-24] MEDS: ONDANSETRON 4 MG/2 ML INJ IV (02:10)
--- NOTE | 2021-09-24 07:51 | DI.RAD.S_ITS ---
PROCEDURE: XR HIP W PEL IF DONE RT 2V INDICATIONS: prosthesis placement TECHNIQUE: To views of the hip were acquired. COMPARISON: [facility], , XR HIP W PEL IF DONE RT 2V, 09/23/2021, 9:08. FINDINGS: Bones: Bipolar right hip prosthesis in good position. No evidence of fracture. Pelvic ring intact. Postprocedural air within expected limits. Soft tissues: No suspicious soft tissue calcifications or masses. IMPRESSION: Well-positioned right hip arthroplasty Approved by: Steven Woodward M.D. on 09/24/2021 at 10:42
[2021-09-24] MEDS: ACETAMINOPHEN 325 MG TABLET 975 MG PO (08:12)
[2021-09-24] MEDS: LACTATED RINGERS 1,000 ML 42 ML IV (08:29)
[2021-09-24] MEDS: PREGABALIN 75 MG CAPSULE PO (08:31)
[2021-09-24] MEDS: VANCOMYCIN 1,000 MG/200 ML PIGGYBACK 200 MG IV (08:31)
--- NOTE | 2021-09-24 08:45 | PM.OP.1 ---
Operative Date/Time/Diagnoses Date of procedure: 09/24/21 Time of procedure: 08:45 Pre-op diagnosis: Right femoral neck fracture Post-op diagnosis: same Procedure & Clinicians Procedure: Right hip unipolar replacement Same procedure as scheduled: Yes Indications: This is a 76-year-old female tripped over cat noted the acute onset of right hip pain. She was noted to have a displaced right femoral neck fracture and is brought the operating room for right hip unipolar. Surgeon: Domenica Macdonald Psychotherapist Counselor: Janessa Bond Anesthesia Type: General Operative Notes Findings: Mild arthritic change in the acetabulum, soft bone, good stability Closure Type: primary Specimen(s): none sent Prosthetic devices, grafts, tissues, transplants, or devices: Macdonald and nephew size 13 cemented Synergy, 44 mm cup, +0 neck Estimated Blood Loss (mL): 250 Blood products transfused: none Procedure in detail: The patient was seen in the pre-operative area, where the patient identified the right hip as the operative site and this was marked with my initials. The patient received pre-operative antibiotics and was taken to the operating room and placed on the operative table in the supine position after satisfactory anesthesia. A night time babysitter out was performed. Patient was placed in the lateral decubitus position and all bony prominences were carefully padded and the arms were appropriately position. The right lower extremity was prepared from the ankle to the iliac crest with ChloroPrep in the usual fashion and draped through sterile drapes. The hip was approached through posterolateral approach. Dissection was carried out down through skin and subcutaneous tissues. The fascia was opened. A PA itinerant teacher assistant was utilized and essential for safely positioning the leg and allowing her procedure to be performed in a timely and safe manner. Careful retraction was required to protect neurovascular structures. Gelpi retractors were placed. A Charnley retractor was placed. A small amount of inflamed bursa was resected. The piriformis was identified and protected. The other short external rotators and capsule were carefully stripped from the posterior aspect of the femur. They were tagged and carefully retracted. The femoral neck was brought up and an osteotomy was made of the residual femoral neck approximately 1 fingerbreadth above the lesser trochanter. The head was removed without difficulty. It was carefully sized. The acetabulum was meticulously irrigated with normal saline. There were [mild] changes in the acetabulum. The acetabulum was carefully protected with an E tape. The canal was opened with a box cutting osteotome, followed by a T-handled reamer and a lateralizing reamer. The tapered reamers were then used, followed by sequential broaching. A trial head and neck were then placed and the hip relocated and checked for leg length and stability. The patient was stable in the position of sleep, of squatting, and could be put through a range of motion with 45 degrees internal rotation without dislocation. At 90 degrees flexion, internal rotation to 70? was possible before dislocation. This was felt to be satisfactory and the appropriate components were opened, and the trials were removed. The femoral canal was sized and a distal cement restrictor was placed. The bone was meticulously cleaned with pulse lavage. The canal was packed with vaginal packing with epinephrine. Antibiotics cement was mixed and carefully pressurized into the femoral canal. The femoral component was placed without difficulty. A repeat trial reduction showed good range of motion and stability. We did a brief Betadine soak after the cement had hardened. Patient had good range of motion and stability. The final head and neck were placed after carefully irrigating the wound. The capsulomuscular flap was then repaired to the greater trochanter though an awl hole using the tag sutures. The short external rotators were repaired with interrupted Vicryl. A deep drain was placed and brought out anteriorly. The fascia frank was closed with interrupted Vicryl. A subcutaneous drain was placed. The subcutaneous layer was closed with interrupted 3-0 Vicryl, and the skin with a running 3-0 V-Lock suture and surgical glue. An Aquacel Ag dressing was applied and the patient was taken to recovery having tolerated the procedure well. Complications: none Post-operative Condition: stable Disposition: Acute Care Plan for aftercare: The patient will be maintained on a standard total hip replacement protocol with weight bearing as tolerated and posterior hip precautions. The patient will receive Xarelto and sequential compression devices for DVT prophylaxis. The patient will be discharged home when safe for the home environment.
[2021-09-24] MEDS: CEFAZOLIN 2 GM/20 ML SYRINGE IV (09:00)
[2021-09-24] MEDS: TRANEXAMIC ACID 1,000 MG VIAL 1000 MG INJ ×2 (09:07→10:18)
--- NOTE | 2021-09-24 09:25 | SUR.OPER ---
Lateral on padded OR bed. Gel axillary roll. Arms secured on padded armboard with pillow supporting top arm. Padded hip positioner braces x4 - anterior and posterior chest and pelvis. Additional gel pad used anterior pelvis. Gel pad under bottom leg from knee to foot and secured with tape over sheet.
[2021-09-24] MEDS: SODIUM CHLORIDE IRRIG SOLUTION 250 ML, EPINEPHrine 1 MG IRR (10:10)
[2021-09-24] MEDS: SODIUM CHLORIDE IRRIG SOLUTION 250 ML, POVIDONE-IODINE SPONGE STICKS 1 APPLIC IRR (10:20)
[2021-09-24] MEDS: BUPIVACAINE LIPOSOME 266 MG/20 ML VIAL INJ (10:20)
[2021-09-24] MEDS: BUPIVACAINE 0.25% (PF) 60 ML, EPINEPHrine 0.3 MG INJ (10:20)
--- NOTE | 2021-09-24 10:59 | CM.DANOTE ---
Initial Discharge Planning Assessment: Case received. EMR reviewed. Patient is currently in the OR for R hip repair. 76 year old admitted yesterday afternoon after a ground level fall 2ndary to tripping over a cat at home. Diagnosed with closed right hip fracture. H/o P.E. has been on xarelto. Patient resides in [place]. PCP Zaki Gerber, surgeon Domenica Macdonald Payer: Medicare and [place] P: DCP to follow up postoperatively [facility] Discharge Planning/Care Management CM Discharge Assessment Start: 09/24/21 10:56 Freq: Status: Active Protocol: Document 09/24/21 10:57 (Rec: 09/24/21 10:59 [id number]) Discharge Planning Assessment Assigned [employer] Production Worker Wendy Vieira RN/DCP Advance Directives? Yes: POLST dated 02/15/17 Advance Directives on File Yes History Provided By Patient,Medical Record Prior Living Arrangements House Household Members none Independent with ADL's Yes Is patient alert and oriented? Yes Review Status In Process
--- NOTE | 2021-09-24 11:18 | SUR.PHASEI ---
Pt arrived, self maintained airway, sats wnl on room air, slow to wake. I feel groggy. Follows commands. Report called to RIOS Tom.
[2021-09-24] MEDS: CELECOXIB 200 MG CAPSULE PO (11:25)
--- NOTE | 2021-09-24 11:31 | SUR.PHASEI ---
Stable PACU stay, pt denied pain, socks and earring in bag brought to room, blanket taken by her friend, Kimmy before she went into surgery. Pt transferred ujp to room via bed.
--- NOTE | 2021-09-24 11:51 | SUR.PHASEI ---
Pt left with Vaishali and in stable condition, bed low and locked, call burnett in hand.
--- NOTE | 2021-09-24 12:09 | PC.NURSE ---
Addendum entered by Vaishali Owens R.N. 09/24/21 17:37: pt up with PT terrence well denies pain dc' home with friend with oral and written instructions. Original Note: Pt to room 204 from pacu, sleepy but easily aroused, vss denies pain, cms intact and ice to right hip in place with maris drsg cdi. wiggles toes, pp+, cap refill less than 3sec. friend at bs. states I want to sleep. call light within reach.
--- NOTE | 2021-09-24 15:16 | PT.IIE ---
Current Diagnoses Hyperparathyroidism, unspecified (09/23/21) Chronic kidney disease, unspecified (09/23/21) Fracture of unspecified part of neck of right femur, initial encounter for closed fracture (09/23/21) custodial (current) use of anticoagulants (09/23/21) Surgery Performed Operation Date: 09/24/21 08:00 Actual Procedures p Right Unipolar Hip(Right) - Domenica Macdonald MD Surgical History (Last Reviewed 09/23/21 @ 13:01 by Domenica Macdonald MD) Anesthesia History of cataract removal with insertion of prosthetic lens (~2013) Status post appendectomy Status post dilation and curettage Status post tonsillectomy and adenoidectomy Status post tubal ligation Medical History (Last Reviewed 09/23/21 @ 13:01 by Domenica Macdonald MD) Acne Breast cyst Breast nodule Carotid stenosis Cataracts, bilateral (~2013) Chicken pox (~1948) Chronic anticoagulation Chronic headache Chronic kidney disease Facet arthropathy, lumbosacral Facial abrasion (~10/07/19) Foraminal stenosis of cervical region Fractures (~1977) Headache Hyperlipidemia Hyperparathyroidism Hypertension (~1999) Measles (~1953) Mumps (~1953) Paresthesia of left upper extremity Pruritic rash Pulmonary nodules Physical Therapy Inpatient Evaluation/Re-Eval M1 PT/OT-IP Prior Functional Status Start: 09/24/21 13:17 Freq: NEEDED Status: Active Protocol: Document 09/24/21 15:16 AW (Rec: 09/24/21 16:06 AW [id number]) Medical Review Prior Functional Status Medical History Reviewed Yes Communication WNL. Pt is an effective verbal communicator. Mobility and Gait Modified independent with 4WW. Pt states she can walk two blocks using 4WW if she can sit and take one rest break. She has a recumbent bike at home she has been trying to use more recently. She does have a history of recurrent falls. Activities of Daily Living and IADL's Independent. 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 Social History Household Members none Living Arrangements House Number of Floors (Floors) Two Floors Number of Stairs To Enter/Railing? Pt has 6 EMELI at front door with R rail ascending. The stairs are wide and she can have someone on the left side for support as needed. Once inside, she ascends another three stairs with left handrail to her bedroom/ bathroom. These stairs are also wide and will accommodate a helper. Home Environment High Toilet,Walk in Shower Home Equipment Four Wheel Walker,Shower Seat without Backrest,Grab Bars Near Toilet,Grab Bars In Shower Additional Social History Comment Pt has a good friend, Kimmy, who can stay with her for at least a few nights at discharge. She also has friends who live in an [place] on her property and can stay with her once Kimmy departs. She has a hurry cane and an adjustable bed. M2 PT-IP Current Condition Start: 09/24/21 13:17 Freq: NEEDED Status: Active Protocol: Document 09/24/21 15:16 AW (Rec: 09/24/21 16:06 AW [id number]) Physical Therapy Current Condition Current Condition Evaluation Date 09/24/21 Treatment Diagnosis R femur fx s/p unipolar arthroplasty with posterior approach; falls history Onset Date 09/23/21 M3 PT-IP Subjective Start: 09/24/21 13:17 Freq: NEEDED Status: Active Protocol: Document 09/24/21 15:16 AW (Rec: 09/24/21 16:06 AW [id number]) Subjective Physical Therapy Visit Type Type Initial Evaluation Visit Start Time 14:06 Visit Stop Time 15:16 Total Visit Minutes 70 Notes Pt's friend, Kimmy, was present throughout and participated in caregiver training. Physical Therapy Visit Comments Patient Comments Pt is willing to participate with PT Patient Goals Pt hopes to return home with supportive friends as soon as possible. Therapy Pain Assessment Pain When Pain Assessed During Mobility Pain Present Pain Present Pain Reported Location right hip Intensity 2 Description With Movement Pain Behaviors Wincing Pain Management Techniques Apply Cold,Distraction,Re- positioning M4 PT-IP Mobility and Gait Start: 09/24/21 13:17 Freq: NEEDED Status: Active Protocol: Document 09/24/21 15:16 AW (Rec: 09/24/21 16:06 AW [id number]) PT-Bed Mobility Assessment Supine to Sit Supine to Sit Minimal Assistance,1 Person Assistance,Head of Bed Elevated Scooting Scooting to Edge of Bed Standby Assistance PT-Transfer Assessment Sit to and From Stand Sit to and from Stand Standby Assistance,Contact Guard Assistance,1 Person Assistance,Use of Upper Extremities Equipment Transfer Assistive Device Gait Belt,Front Wheeled Walker Orthotic/Prosthetic Devices or Brace: No Transfers Transfer Destination Chair,Toilet,Wheelchair Transfer Technique amb with FWW Transfer Ability Level of Assist Standby Assistance,Contact Guard Assistance Comments Mobility Comments Pt was lying in bed as PT arrived. BP 104/54 HR 69. PT provided education on weightbearing status, posterior hip precautions, and equipment needs. Pt slid her legs toward left side of the bed, needing min A to complete supine to sit. She was able to scoot herself toward feet flat on floor with good attention to precautions. Sitting BP 111/50 HR 74. She stood CGA and steadied herself with FWW. Denying lightheadedness, she transferred to the chair CGA and cues for foot placement to minimize R hip flexion. BP after transfer was 130/54 HR 75. Pt stood and ambulated to the hallway using FWW SBA. With w/c follow, she walked 130 feet to the therapy stairs . She tended to circumduct with the RLE initially but improved her hip flexion as distance increased. She completed stair training with her caregiver and then transferred to the w/c SBA. She was pushed in the w/c back to her room where she stood SBA and used FWW to walk into the bathroom. She was able to get on and off the toilet using left side grab bar as she would at home. Min cues needed in the bathroom to place her right foot in front to minimize hip flexion. Recommended raised toilet seat to ease precaution maintenance. Pt stood and walked back to the chair. BP was 133/57 HR 86. Pt was left in the chair with call light and tray table in reach. Gait Assessment Gait Gait Assistance Required: Standby Assistance Distance (Feet) 130 Able to Maintain Weight Bearing Status Yes During Gait Assistive Devices Assistive Device Gait Belt,Front Wheeled Walker Orthotic/Prosthetic Devices or Brace: No Gait Deviations General Gait Pattern Antalgic,Decreased Stride Length,Decreased Feet Clearance,Flexed Trunk,Step-to Gait Factors Limiting Gait Function Factors Limiting Gait Function Decreased Strength,Limited Range of Motion,Pain Comments Gait Comments See mobility comments for details Stair Climbing Assessment Evaluation Level of Assist On Stairs Contact Guard Assistance,1 Person Assistance Devices Stair Climbing Assistive Devices Right Railing Technique/Endurance Stair Climbing Direction Ascend and Descend Stair Climbing Technique Step to Step Number of Steps Climbed 3 Query Text: Stair Climbing Set # Repetitions (reps) 2 Comments Stair Climbing Comments PT educated pt and caregiver on climbing and guarding techniques. Pt's friend was able to don the gait belt and provide CGA for safe ascend/ descend stairs. Pt used both hands on the right rail one set and one hand right rail + L EDGE GRINDER second set. PT-Balance Assessment Sitting Balance and Reactions Static Sitting Balance Ability Good Dynamic Sitting Balance Ability Good Standing Balance and Reactions Static Standing Balance Ability Good Dynamic Standing Balance Ability Good Device Used FWW M5 PT-IP Objective Assessments Start: 09/24/21 13:17 Freq: NEEDED Status: Active Protocol: Document 09/24/21 15:16 AW (Rec: 09/24/21 16:06 AW [id number]) Orientation Orientation/Cognition Level of Alertness Alert Orientation Name,Day of Week,Place, Situation Language Function Ability No Deficits Noted Safety Awareness Understands Safety Issues Memory Description No Deficits Noted Gross Range of Motion Lower Extremity ROM Assessment Right Impaired Strength Lower Extremity Strength Assessment Bilaterally Impaired Hip R 3/5; L 4/5 Knee R 4-/5; L 4/5 Sensation Assessment Sensation Gross Sensation WNL M6 PT-IP Treatment Start: 09/24/21 13:17 Freq: NEEDED Status: Active Protocol: Document 09/24/21 15:16 AW (Rec: 09/24/21 16:06 AW [id number]) Physical Therapy Treatment Education Education Provided Precautions,Weight Bearing Status,Post-Op Packet,Safety Other Treatments Other Treatment Performed Educated pt and caregiver on weightbearing status, posterior hip precautions, and rationale for use of FWW at this time. Also educated pt on equipment needs, benefits of OT evaluation and treatment, and recommendation for home health therapies. M7 PT-IP Assessment and Plan Start: 09/24/21 13:17 Freq: NEEDED Status: Active Protocol: Document 09/24/21 15:16 AW (Rec: 09/24/21 16:06 AW [id number]) PT Summary Assessment and Plan Potential Rehabilitation Potential Good Status of Condition at Evaluation Evolving Summary Impairments Pain,ROM,Strength,Balance,Bed Mobility,Transfers,Gait Assessment Summary Heather is a 76 yo woman seen for PT evaluation on POD0 following R unipolar hip arthroplasty to repair femoral neck fracture. Pt is modified independent at baseline with use of 4WW and fully independent with ADL's and IADL's. She does have history of multiple injurious falls. On assessment, pt required min assist with bed mobility and SBA/CGA for all other mobilities using FWW. Pt understands PT recommendation for FWW and her friend has already been able to acquire a FWW for home use. Pt's friend was able to provide all necessary assist and cues for safe mobility including on stairs. Pt will be safe to discharge home with assist once medically stable. She will need home health therapies to progress her strength and mobility. Goals Bed Mobility Goal Standby Assistance Transfer Goal Independent,Front Wheeled Walker Gait Goal Independent,Front Wheel Walker Gait Distance 200 Other Goals - up/down 6 steps with R rail ascending SBA - up/down 3 steps with L rail acending SBA - pt will teach back all posterior hip precautions Days to Meet Goals 3 Frequency of Treatment Frequency Of Treatment Twice a Day Treatment Plan Physical Therapy Treatment Plan Bed Mobility Training,Transfer Training,Gait Training, Therapeutic Exercise,Balance Retraining,Post Op Education, Discharge Planning,Hot or Cold Pack Other Recommendations and Next Treatment review precautions; continue Focus gait training with FWW; revisit stairs Precautions Posterior Hip Precautions No Hip Flexion > 90 degrees,No Hip Internal Rotation,No Hip Adduction Weight Bearing Status Weight Bearing Status Weight Bear as Tolerated Allowed Weight Bearing Amount (enter % WBAT RLE or #) (%) Recommendations To Nursing Amount of Assist Needed 1 Person Assist Discharge Recommendations PT Discharge Recommendations Home with Assistance,Home Health Equipment Needed for Home Before RTS recommended Discharge Transportation Needs at Discharge Private Vehicle
--- NOTE | 2021-09-24 15:51 | CM.DANOTE ---
Initial Discharge Planning Assessment Note: Case received, EMR reviewed. Patient not in room earlier, in surgery for hip repair. PCP: Zaki Gerber Payer: Medicare and [employer] 76 year old female who lives alone with good support and friends who will stay with her post op for care. Patient returned from surgery mid day. She fell at home and had right femoral neck fracture and underwent R hip unipolar replacement. She returns to floor and desires to go home today. PT has seen patient and states patient doing very well and would be a candidate for discharge today. PT was going to be contacting Dr Macdonald. Educated regarding Home Health RN/PT/OT and patient is agreeable. Educated re 3 agencies and she has no preference. Called and spoke with Zan at [facility] and they can accept. P: Faxing F2F and other records to [place]. CM to Follow up as needed if she does not discharge today. SEJ Discharge Planning/Care Management CM Discharge Assessment Start: 09/24/21 10:56 Freq: Status: Active Protocol: Document 09/24/21 10:57 (Rec: 09/24/21 10:59 [id number]) Discharge Planning Assessment Assigned Site Director Wendy Vieira RN/DCP Advance Directives? Yes: POLST dated 02/15/17 Advance Directives on File Yes History Provided By Patient,Medical Record Prior Living Arrangements House Household Members none Independent with ADL's Yes Is patient alert and oriented? Yes Review Status In Process
--- NOTE | 2021-09-24 16:00 | PM.PN.1 ---
Subjective Subjective Interval history: pt is s/p surgery, feeling well and wants to go home Exam Vital Signs (past 8 hours): - 09/24/21 08:24 09/24/21 09:05 09/24/21 10:55 Temperature 98.5 F 97.6 F Pulse Rate 58 L 88 Respiratory Rate 18 18 Blood Pressure 124/45 L 132/59 L Pulse Oximetry 97 97 97 Oxygen Delivery Method Room Air Room Air Room Air Oxygen Flow Rate 09/24/21 11:00 09/24/21 11:05 09/24/21 11:20 Temperature 97.6 F Pulse Rate 87 88 86 Respiratory Rate 20 18 19 Blood Pressure 155/63 H 155/65 H 153/66 H Pulse Oximetry 96 95 95 Oxygen Delivery Method Room Air Room Air Room Air Oxygen Flow Rate 09/24/21 11:27 09/24/21 11:40 09/24/21 12:10 Temperature 98.6 F 97.0 F L 96.3 F L Pulse Rate 81 72 70 Respiratory Rate 20 16 16 Blood Pressure 145/55 H 137/58 L 132/55 L Pulse Oximetry 93 97 100 Oxygen Delivery Method Room Air Oxygen Flow Rate 2 2 09/24/21 12:40 09/24/21 13:40 09/24/21 14:40 Temperature 96.6 F L 97.5 F L 97.2 F L Pulse Rate 63 69 68 Respiratory Rate 16 18 18 Blood Pressure 119/50 L 99/52 L 100/66 Pulse Oximetry 99 97 96 Oxygen Delivery Method Oxygen Flow Rate 2 2 0 Oxygen Delivery Method Room Air Oxygen Flow Rate 0 Const General: cooperative and well developed Orientation: alert, awake and oriented x3 [facility] Head: normocephalic and atraumatic Ears: external ears normal Nose: external nose normal Mouth: oral mucosae normal Eyes Pupils: PERRL EOM: EOM intact bilaterally Neck Neck: full ROM and supple Thyroid: thyroid normal Chest Chest: normal inspection of the chest Resp Auscultation: clear to auscultation bilaterally Cardio Rate: regular rate Rhythm: regular rhythm GI Inspection: normal to inspection Palpation: soft and No tender Auscultation: normal bowel sounds Back/Spine/Pelvis Back: normal to inspection Skin General: no rashes or lesions noted Neuro General: patient alert, patient awake, patient oriented x3, gait normal, moves all extremities and no focal motor deficits Cranial Nerves: CN's II-XI intact bilaterally Extrem General: normal to inspection, full ROM and no clubbing, cyanosis or edema Psych Mental Status: mental status grossly normal Mood: congruent mood Affect: normal affect Objective Labs Result Diagrams: 09/23/21 10:03 09/23/21 10:03 [facility] Medical History Acne Breast cyst Breast nodule Carotid stenosis Cataracts, bilateral (~2013) Chicken pox (~194) Chronic anticoagulation Chronic headache Chronic kidney disease Facet arthropathy, lumbosacral Facial abrasion (~10/07/19) Foraminal stenosis of cervical region Fractures (~1977) Headache Hyperlipidemia Hyperparathyroidism Hypertension (~1999) Measles (~1953) Mumps (~1953) Paresthesia of left upper extremity Pruritic rash Pulmonary nodules Surgical History Anesthesia History of cataract removal with insertion of prosthetic lens (~2013) Status post appendectomy Status post dilation and curettage Status post tonsillectomy and adenoidectomy Status post tubal ligation Family History Father Cancer Grandfather Heart disease Grandmother Stroke Mother Cancer Brother No problems noted. Grandfather No problems noted. Grandmother No problems noted. Social History household members: none Smoking Status: Never smoker alcohol intake: current substance use type: does not use Assessment & Plan Assessment & Plan narrative: Acute closed hip fracture -s/p surgery day 1 -PT/OT - pain meds as needed Hyperlipidemia -continue home meds Hyperparathyroidism -continue home meds Hypothyroidism -continue levothyroxin CKD stage 2 -cr stable - BMP daily Depression -continue citalopram DVT prophylaxis: lovenox 40 mg sq Code status: full discussed with ortho team Time Spent With Patient Critical Care time: I spent a total of [] minutes of critical care time on this patient's care today; this time is exclusive of procedural time. Quality VTE Deep Vein Thrombosis/Pulmonary Embolism Present on Admission: No
--- NOTE | 2021-09-24 16:17 | P.DS_ITS ---
History of Present Illness History of Present Illness Chief complaint: GLF, right hip pain Narrative: CC : hip pain fracture This is a 76-year-old female with h/o Hyperparathyroidism, Hyperlipidemia, CKD stage 2, she presented to ER after tripped at home over a cat and landed on her right hip.? Since then she started to have severe pain in hip. Now she is in hospital , was evaluated in ER and consulted by orthopedic team. She has closed R hip fracture. 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 Also, she has parathyroid tumor Patient denies any chest pain, shortness of breath, nausea, vomiting, diarrhea, constipation, cough, denies recent traveling, denies recent sick contacts. Her last dose of Xarelto was yesterday morning.? Discharge Providers Provider Date of admission: 09/23/21 13:24 Discharge Date: 09/24/21 Primary care physician: Zaki Gerber DO Consults: 09/23/21 13:49 Consult to Physician Routine Comment: Consulting Provider: [facility] Reason for consultation: hip fracture Has provider been notified: Yes 09/24/21 07:49 Consult to Anesthesiology Routine Comment: Consulting Provider: Anesthesiologist Reason for consultation: Regional block for post operative pain control 09/24/21 11:43 Consult to Discharge Planning Routine Comment: Consult to Physical Therapy Evaluate & Treat Comment: Physician Instructions: post op JUDITH protocol Consult to Respiratory Therapy Evaluate & Treat Comment: Physician Instructions: Evaluate and treat Discharge provider: Migel Leach Summary Hospital Course Discharge Diagnosis: hip fracture Hospital Course: Acute closed hip fracture -s/p surgery day 1, did well and ortho recommended to discharge to home and f/u in 10 days outpatient with PT/OT will be set up by ortho team Hyperlipidemia-continued home meds Hyperparathyroidism-continued home meds Hypothyroidism-continued levothyroxin CKD stage 2- cr stable Depression-continued citalopram Exam Vital Signs (past 8 hours): - 09/24/21 08:24 09/24/21 09:05 09/24/21 10:55 Temperature 98.5 F 97.6 F Pulse Rate 58 L 88 Respiratory Rate 18 18 Blood Pressure 124/45 L 132/59 L Pulse Oximetry 97 97 97 Oxygen Delivery Method Room Air Room Air Room Air Oxygen Flow Rate 09/24/21 11:00 09/24/21 11:05 09/24/21 11:20 Temperature 97.6 F Pulse Rate 87 88 86 Respiratory Rate 20 18 19 Blood Pressure 155/63 H 155/65 H 153/66 H Pulse Oximetry 96 95 95 Oxygen Delivery Method Room Air Room Air Room Air Oxygen Flow Rate 09/24/21 11:27 09/24/21 11:40 09/24/21 12:10 Temperature 98.6 F 97.0 F L 96.3 F L Pulse Rate 81 72 70 Respiratory Rate 20 16 16 Blood Pressure 145/55 H 137/58 L 132/55 L Pulse Oximetry 93 97 100 Oxygen Delivery Method Room Air Oxygen Flow Rate 2 2 09/24/21 12:40 09/24/21 13:40 09/24/21 14:40 Temperature 96.6 F L 97.5 F L 97.2 F L Pulse Rate 63 69 68 Respiratory Rate 16 18 18 Blood Pressure 119/50 L 99/52 L 100/66 Pulse Oximetry 99 97 96 Oxygen Delivery Method Oxygen Flow Rate 2 2 0 Oxygen Delivery Method Room Air Oxygen Flow Rate 0 Objective Labs Result Diagrams: 09/23/21 10:03 09/23/21 10:03 [facility] Medical History Acne Breast cyst Breast nodule Carotid stenosis Cataracts, bilateral (~2013) Chicken pox (~194) Chronic anticoagulation Chronic headache Chronic kidney disease Facet arthropathy, lumbosacral Facial abrasion (~10/07/19) Foraminal stenosis of cervical region Fractures (~1977) Headache Hyperlipidemia Hyperparathyroidism Hypertension (~1999) Measles (~1953) Mumps (~1953) Paresthesia of left upper extremity Pruritic rash Pulmonary nodules Surgical History Anesthesia History of cataract removal with insertion of prosthetic lens (~2013) Status post appendectomy Status post dilation and curettage Status post tonsillectomy and adenoidectomy Status post tubal ligation Family History Father Cancer Grandfather Heart disease Grandmother Stroke Mother Cancer Brother No problems noted. Grandfather No problems noted. Grandmother No problems noted. Social History household members: none Smoking Status: Never smoker alcohol intake: current substance use type: does not use Discharge Plan Discharge Plan Patient Disposition: Home Nursing Discharge Comment: f/u ortho dr Macdonald in 10 days Discharge orders & Medications Prescriptions: Continued Thera M Plus (ferrous fumarat) 1 EACH tablet 1 tab PO Q DAY Qty: 0 citalopram 40 mg tablet See Rx Instructions .ROUTE .COMPLEX Qty: 90 3RF Dose Instruction: TAKE 1 TABLET BY MOUTH DAILY Rx Instructions: TAKE 1 TABLET BY MOUTH DAILY lisinopril 10 mg tablet See Rx Instructions .ROUTE .COMPLEX Qty: 90 2RF Dose Instruction: TAKE 1 TABLET BY MOUTH ONCE DAILY Rx Instructions: TAKE 1 TABLET BY MOUTH ONCE DAILY Xarelto 15 mg tablet 15 mg PO DAILY Qty: 90 2RF rosuvastatin 5 mg tablet See Rx Instructions .ROUTE .COMPLEX Qty: 90 2RF Dose Instruction: TAKE 1 TABLET BY MOUTH DAILY Rx Instructions: TAKE 1 TABLET BY MOUTH DAILY levothyroxine 88 mcg tablet 88 mcg PO DAILY Qty: 90 3RF amlodipine 5 mg tablet 5 mg PO BEDTIME Qty: 90 3RF aspirin [Adult Low Dose Aspirin] 81 mg tablet,delayed release (DR/EC) 81 mg PO DAILY cyclosporine 0.05 % dropperette 1 drp EYE-BOTH BID tizanidine 2 mg tablet 2 mg PO TID PRN (Reason: muscle spasticity) Qty: 60 1RF ferrous sulfate 325 mg (65 mg iron) tablet 325 mg PO DAILY triamcinolone acetonide 0.1 % ointment 1 applic TOP DAILY No Action (DME) disabled parking permit See Rx Instructions .ROUTE .MEDSUPPLY Qty: 1 0RF Rx Instructions: As directed. patient qualifies for disabled parking as per attached form. Follow up/Referrals: Zaki Gerber DO [Primary Care Provider] - Discharge Data Primary Care Provider: Zaki Gerber Quality VTE Deep Vein Thrombosis/Pulmonary Embolism Present on Admission: No
--- NOTE | 2021-09-25 10:51 | CM.DPNOTE ---
Call from Zan at [facility] stating he had spoken with DCP yesterday regarding new referral and he had confirmed they could accept pt and aware pt would d/c home last night but Zan did not receive the faxed referral. WILFRIDO found printed clinicals for referral along with completed F2F and per DCP note, Zan at [facility] had been called but referral accidentally faxed to [facility]. SW refaxed referral, F2F, and SW completed HH orders and faxed to [facility] and left msg for Yumiko to cancel referral since [facility] had been the agency called and spoken to yesterday. LUCIANO Kirkland
== END 2021-09-24 17:30 | disposition home health service (06) | DRG 522 ==
LOC: ED 12:06 → AC 13:25
PROVIDERS: Orthopaedic Surgery; Admitting Provider Internal Medicine; Emergency Provider Emergency Medicine; Family Provider Family Medicine; PCP Family Medicine; Referring Provider Emergency Medicine; Visit Provider Internal Medicine
PROC: 0SRR0JZ Replacement of Right Hip Joint, Femoral Surface with Synthetic Substitute, Open Approach (ICD-10-PCS; CPT 27125; principal; 2021-09-24 08:00)
DX: S72.011A Unspecified intracapsular fracture of right femur, initial encounter for closed fracture (principal); E21.3 Hyperparathyroidism, unspecified; E78.5 Hyperlipidemia, unspecified; F32.A Depression, unspecified; E03.9 Hypothyroidism, unspecified; I10 Essential (primary) hypertension; W01.0XXA Fall on same level from slipping, tripping and stumbling without subsequent striking against object, initial encounter; Z20.822 Contact with and (suspected) exposure to COVID-19; Z86.718 Personal history of other venous thrombosis and embolism; Z79.01 Long term (current) use of anticoagulants
CPT/HCPCS: 36415; 71045; 72170; 73502; 80053; 82962; 85025; 85610; 85730; 86850; 86900; 86901; 87635; 93005; 93010; 94760; 94762; 96374; 96375; 97116; 97162; 97530; 99284; C1776; C9803; C9290; J0171; J0690; J1100; J1200; J2250; J2405; J2704; J3010; J3360

== ENCOUNTER → 2021-10-27 09:21 | Outpatient (CLI) | payer MEDICARE, OTHER, SELFPAY ==
[2021-09-23 14:23] VITALS: BMI 24.7
[2021-10-27 10:30] LABS: Add Manual Diff / Slide Review NO; Basophils Absolute Auto 100 /uL (0-100); Basophils Percent Auto 0.7 % (0-2); Eosinophils Absolute Auto 200 /uL (0-450); Eosinophils Percent Auto 2.5 % (2-4); Hematocrit 32.8 % (36-46); Hemoglobin 10.9 g/dL (12.0-16.0); Lymphocytes Absolute Auto 1800 /uL (1100-4500); Lymphocytes Percent Auto 24.6 % (25-40); Mean Corpuscular HGB Conc 33.2 % (30-36); Mean Corpuscular Hemoglobin 32.1 PG (26-34); Mean Corpuscular Volume 96.7 fL (80-100); Monocytes Absolute Auto 500 /uL (0-900); Monocytes Percent Auto 6.8 % (3-14); Neutrophils Absolute Auto 4800 /uL (1500-7000); Neutrophils Percent Auto 65.4 % (50-75); Platelet Count 234 X10^3/uL (150-400); Red Blood Cell Count 3.39 X10^6/uL (4.0-5.2); Red Cell Distribution Width 12.6 % (11.6-14.8); White Blood Cell Count 7.3 X10^3/uL (4.5-11.0)
[2021-10-27 10:45] LABS: Blood Urea Nitrogen 41 mg/dL (7-17); Calcium 9.9 mg/dL (8.4-10.2); Carbon Dioxide 23 mmol/L (22-32); Chloride 107 mmol/L (98-107); Estimated Glomerular Filt Rate 32 mL/min (>60); Glucose 95 mg/dL (80-110); HEMOLYSIS < 15 (0-50); Potassium 5.2 mmol/L (3.4-5.1); Sodium 140 mmol/L (137-145)
[2021-10-27 12:39] LABS: Appearance Urine UA CLEAR; Bilirubin Urine UA NEGATIVE (NEGATIVE); Color Urine UA YELLOW; Glucose Urine UA NEGATIVE (Negative); Ketones Urine UA NEGATIVE (NEGATIVE); Leukocyte Esterase Urine UA NEGATIVE (NEGATIVE); Nitrite Urine UA NEGATIVE (Negative); Occult Blood Urine UA 1+ (Negative); Protein Urine UA NEGATIVE (Negative); Specific Gravity Urine UA 1.015 (1.000-1.035); Urobilinogen Urine UA 0.2 E.U./dL (0.2)
[2021-10-27 13:01] LABS: Amorphous Sediment Urine 1+; Bacteria Urine None Seen; Culture Indicated Urine Cult Not Indicated; RBC Urine 1-5/HPF (0-5/HPF); Squamous Epithelial Cell Urine 0-1 /HPF (0-5/HPF); WBC Urine 0-1/HPF (0-5/HPF)
[2021-10-27 13:42] LABS: Creatinine Urine Random 80.4 mg/dL; Protein (Total) Urine Random 8 mg/dL (0-12); Protein Creatinine Ratio Urine 0.09 GRAM/24H
[2021-10-27 13:49] LABS: Microalbumi Creatinin Ratio Ur 24.8 ug/mg CR (<30)
== END ==
PROVIDERS: Family Provider Family Medicine; PCP Family Medicine; Referring Provider Internal Medicine Nephrology; Visit Provider Internal Medicine Nephrology
DX: N18.32 Chronic kidney disease, stage 3b (principal)
CPT/HCPCS: 36415; 80048; 81001; 82043; 82570; 84156; 85025

== ENCOUNTER → 2021-12-04 08:46 | Outpatient (CLI) | payer MEDICARE, OTHER, SELFPAY ==
[2021-09-23 14:23] VITALS: BMI 24.7
[2021-12-04 11:07] LABS: Hematocrit 32.8 % (36-46)
[2021-12-04 11:14] LABS: BUN Creatinine Ratio 21.3 (6-22); Blood Urea Nitrogen 35 mg/dL (7-17); Carbon Dioxide 25 mmol/L (22-32); Chloride 104 mmol/L (98-107); Estimated Glomerular Filt Rate 32 mL/min (>60); Glucose 103 mg/dL (80-110); HEMOLYSIS < 15 (0-50); Potassium 5.2 mmol/L (3.4-5.1); Sodium 138 mmol/L (137-145)
[2021-12-04 15:59] LABS: Creatinine Urine Random 84.2 mg/dL
== END ==
PROVIDERS: Family Provider Family Medicine; PCP Family Medicine; Referring Provider Internal Medicine Nephrology; Visit Provider Internal Medicine Nephrology
DX: I10 Essential (primary) hypertension (principal); N18.32 Chronic kidney disease, stage 3b
CPT/HCPCS: 36415; 80048; 82043; 82570; 85014; 85018

== ENCOUNTER → 2022-01-10 09:34 | Outpatient (CLI) | payer MEDICARE, OTHER, SELFPAY ==
[2021-09-23 14:23] VITALS: BMI 24.7
[2022-01-10 11:37] LABS: COVID19 -Nasal RAPID Negative (Negative)
--- NOTE | 2022-01-10 18:25 | DI.NM.S_ITS ---
DATE OF SERVICE: 01/10/2022 PROCEDURE: Perfusion study INDICATION: Shortness of breath with underlying PAD, hypertension. RADIOPHARMACEUTICAL: 25.2 millicurie technetium-99m Myoview IV was injected at stress and 12.3 millicurie technetium-99m Myoview IV was injected at rest. CARDIAC STRESS: The patient underwent IV Lexiscan perfusion study under the supervision of an attending staff, as per standard protocol. The patient had minimal dyspnea. No chest discomfort. Baseline rhythm was sinus. During stress, no convincing ischemic changes seen. No significant arrhythmias seen. Baseline blood pressure 140/68. Heart rate 63 beats per minute. Remained hemodynamically stable. RAW DATA: There was breast shadow seen. GATED STUDY: Resting LV ejection fraction 73 and stress LV ejection fraction 78 percent. No obvious wall motion abnormalities. Resting end-diastolic volume 91 mL. TID ratio 1.08, which is within normal limits. Lung/heart ratio 0.41, which is within normal limits. MYOCARDIAL PERFUSION SCAN: Stress supine, resting supine and stress prone images were compared to each other. The stress and resting supine images revealed small to moderate size, mildly decreased perfusion of distal anterior wall extending into the apex, which got significantly improved during stress prone images, suggestive of likely breast tissue attenuation artifact. No convincing ischemia infarction. CONCLUSION: I will call this study likely a normal myocardial perfusion study with evidence of breast tissue attenuation artifact, which got resolved during the stress prone images. Stress LV ejection fraction 78 percent. No transient ischemic dilatation. Lung/heart ratio normal. No significant ischemic electrocardiographic changes. No chest pain. Overall, low-risk myocardial perfusion scan. Heather Walker - JOSE MARIA/harper/britt doc#: [id number]/job#: [id number] dd: 01/10/2022 17:17:00 dt: 01/10/2022 18:04:00 DICTATING MD/COPIES TO: Vicente Clark MD COPIES MNE: CIARA;
== END ==
PROVIDERS: Family Provider Family Medicine; PCP Family Medicine; Referring Provider Internal Medicine Cardiovascular Disease; Visit Provider Internal Medicine Cardiovascular Disease
DX: I65.23 Occlusion and stenosis of bilateral carotid arteries (principal); R06.02 Shortness of breath; I70.213 Atherosclerosis of native arteries of extremities with intermittent claudication, bilateral legs; I10 Essential (primary) hypertension; Z20.822 Contact with and (suspected) exposure to COVID-19
CPT/HCPCS: 78452; 87635; 93017; A9502; J2785

== ENCOUNTER → 2022-01-12 14:25 | Outpatient (CLI) | payer MEDICARE, OTHER, SELFPAY ==
[2021-09-23 14:23] VITALS: BMI 24.7
--- NOTE | 2022-01-12 | DI.MG.S_ITS ---
BILATERAL DIGITAL SCREENING MAMMOGRAM 3D/2D WITH CAD: 01/12/2022 CLINICAL: Routine screening. Family history of breast cancer. Comparison is made to exams dated: 04/14/2021 mammogram, 01/03/2021 mammogram, and 12/15/2019 mammogram - [facility]. Both breasts are heterogeneously dense, which may obscure small masses (category c / 51-75% glandular tissue). Current study was also evaluated with a Computer Aided Detection (CAD) system. There are benign calcifications in both breasts. No significant masses, calcifications, or other findings are seen in either breast. There has been no significant interval change. IMPRESSION: BENIGN There is no mammographic evidence of malignancy. A 1 year screening mammogram is recommended. Based on the Tyrer Cuzick model (a risk assessment model) the patient's lifetime risk is 10.4% and her 10 year risk is 0.0%. According to the ACR, ACS, and NCCN guidelines, an annual breast MRI exam along with mammogram is recommended if the patient's lifetime risk is 20% or greater. This exam was interpreted at Station ID: [id number]. NOTE: For mammograms, a report in lay terms will be sent to the patient. Approximately 15% of breast malignancies will not be visualized mammographically. In the management of a palpable breast mass, a negative mammogram must not discourage biopsy of a clinically suspicious lesion. Electronically Signed By: Bin balbuena/iesha:01/12/2022 16:07:26 letter sent: Normal Exam ACR BI-RADS Category 2: Benign Finding(s) 3342F
== END ==
PROVIDERS: Family Provider Family Medicine; PCP Family Medicine; Referring Provider Family Medicine; Visit Provider Family Medicine
DX: Z12.31 Encounter for screening mammogram for malignant neoplasm of breast (principal); Z80.3 Family history of malignant neoplasm of breast
CPT/HCPCS: 77063; 77067

== ENCOUNTER → 2022-02-27 08:46 | Outpatient (CLI) | payer MEDICARE, OTHER, SELFPAY ==
[2021-09-23 14:23] VITALS: BMI 24.7
[2022-02-27 10:09] LABS: Add Manual Diff / Slide Review NO; Basophils Absolute Auto 0 /uL (0-100); Basophils Percent Auto 0.7 % (0-2); Eosinophils Absolute Auto 200 /uL (0-450); Eosinophils Percent Auto 3.4 % (2-4); Hematocrit 35.7 % (36-46); Lymphocytes Absolute Auto 1700 /uL (1100-4500); Lymphocytes Percent Auto 27.5 % (25-40); Mean Corpuscular HGB Conc 33.8 % (30-36); Mean Corpuscular Hemoglobin 31.2 PG (26-34); Mean Corpuscular Volume 92.3 fL (80-100); Monocytes Absolute Auto 400 /uL (0-900); Monocytes Percent Auto 6.1 % (3-14); Neutrophils Absolute Auto 3800 /uL (1500-7000); Neutrophils Percent Auto 62.3 % (50-75); Platelet Count 242 X10^3/uL (150-400); Red Blood Cell Count 3.86 X10^6/uL (4.0-5.2); Red Cell Distribution Width 13.1 % (11.6-14.8); White Blood Cell Count 6.1 X10^3/uL (4.5-11.0)
[2022-02-27 15:02] LABS: Free T4, Direct Thyroxine 1.36 ng/dL (0.78-2.19)
[2022-02-27 15:15] LABS: Thyroid Stimulating Hormone 0.117 uIU/mL (0.47-4.68)
[2022-02-27 16:09] LABS: Alanine Aminotransferase 16 IU/L (<35); Albumin 4.1 g/dL (3.5-5.0); Albumin Globulin Ratio 1.3 (1.0-2.8); Alkaline Phosphatase 65 U/L (38-126); Aspartate Aminotransferase 18 IU/L (14-36); Bilirubin Total 0.4 mg/dL (0.2-1.3); Blood Urea Nitrogen 32 mg/dL (7-17); Calcium 10.5 mg/dL (8.4-10.2); Carbon Dioxide 24 mmol/L (22-32); Chloride 106 mmol/L (98-107); Estimated Glomerular Filt Rate 43 mL/min (>60); Globulin 3.1 g/dL (1.7-4.1); Glucose 103 mg/dL (80-110); HEMOLYSIS < 15 (0-50); Potassium 4.8 mmol/L (3.4-5.1); Sodium 141 mmol/L (137-145); Total Protein 7.2 g/dL (6.3-8.2)
[2022-02-28 10:21] LABS: Calcium 10.4 mg/dL (8.7-10.3); Parathyroid Hormone, Intact 51 pg/mL (15-65)
== END ==
PROVIDERS: Family Provider Family Medicine; PCP Family Medicine; Referring Provider Family Medicine; Visit Provider Family Medicine
DX: Z00.00 Encounter for general adult medical examination without abnormal findings (principal); E21.3 Hyperparathyroidism, unspecified; E78.2 Mixed hyperlipidemia; I10 Essential (primary) hypertension; N18.9 Chronic kidney disease, unspecified; E03.9 Hypothyroidism, unspecified
CPT/HCPCS: 36415; 80053; 82310; 83970; 84439; 84443; 85025

== ENCOUNTER → 2022-03-02 07:25 | Outpatient (CLI) | payer MEDICARE, OTHER, SELFPAY ==
[2021-09-23 14:23] VITALS: BMI 24.7
[2022-03-05 13:22] LABS: Fecal Immunochemical Test Positive (Negative)
== END ==
PROVIDERS: Family Provider Family Medicine; PCP Family Medicine; Referring Provider Family Medicine; Visit Provider Family Medicine
DX: Z00.00 Encounter for general adult medical examination without abnormal findings (principal); E21.3 Hyperparathyroidism, unspecified; E78.2 Mixed hyperlipidemia; I10 Essential (primary) hypertension; N18.9 Chronic kidney disease, unspecified
CPT/HCPCS: 82274

== ENCOUNTER → 2022-03-09 07:38 | Outpatient (CLI) | payer MEDICARE, OTHER, SELFPAY ==
[2021-09-23 14:23] VITALS: BMI 24.7
[2022-03-09 08:15] LABS: Hematocrit 34.8 % (36-46); Hemoglobin 11.3 g/dL (12.0-16.0)
[2022-03-09 08:43] LABS: BUN Creatinine Ratio 27.3 (6-22); Blood Urea Nitrogen 41 mg/dL (7-17); Calcium 9.8 mg/dL (8.4-10.2); Carbon Dioxide 22 mmol/L (22-32); Chloride 107 mmol/L (98-107); Estimated Glomerular Filt Rate 36 mL/min (>60); Glucose 107 mg/dL (80-110); HEMOLYSIS < 15 (0-50); Potassium 4.5 mmol/L (3.4-5.1); Sodium 138 mmol/L (137-145)
[2022-03-09 12:45] LABS: Microalbumin Urine Random 2.3 mg/dL (0-1.6)
[2022-03-09 12:46] LABS: Creatinine Urine Random 78.7 mg/dL; Microalbumi Creatinin Ratio Ur 29.2 ug/mg CR (<30)
== END ==
PROVIDERS: Family Provider Family Medicine; PCP Family Medicine; Referring Provider Internal Medicine Nephrology; Visit Provider Internal Medicine Nephrology
DX: I10 Essential (primary) hypertension (principal); N18.32 Chronic kidney disease, stage 3b; Z86.39 Personal history of other endocrine, nutritional and metabolic disease
CPT/HCPCS: 36415; 80048; 82043; 82570; 85014; 85018

== ENCOUNTER → 2022-03-14 09:20 | Outpatient (CLI) | payer MEDICARE, OTHER, SELFPAY ==
[2021-09-23 14:23] VITALS: BMI 24.7
--- NOTE | 2022-03-14 09:20 | DI.RAD.S_ITS ---
PROCEDURE: XR LUMBAR SPINE MIN 4V INDICATIONS: BACK PAIN TECHNIQUE: 5 views of the lumbar spine were acquired, including bilateral oblique views. COMPARISON: [facility], , XR LUMBAR SPINE MIN 4V, 08/25/2019, 10:18. FINDINGS: Bones: 5 nonrib-bearing vertebrae are present. Mild rotatory dextro scoliotic curvature. Retrolisthesis of C3 on C4 measures 7 mm. Advanced multilevel degenerative disc space loss and hypertrophic posterior facet arthropathy. Suspect canal stenosis. No vertebral body compression fractures. No suspicious bony lesions. Right hip arthroplasty is noted. Soft tissues: Overlying bowel gas pattern is normal. No suspicious soft tissue calcifications. Oblique images: No pars defects. IMPRESSION: Advanced multilevel degenerative disc space loss and hypertrophic posterior facet arthropathy. Suspect canal stenosis. Comment: Lumbar spine MRI may be helpful. Dictated by: Ulises Navarro M.D. on 03/14/2022 at 10:12 Approved by: Ulises Navarro M.D. on 03/14/2022 at 10:15
== END ==
PROVIDERS: Family Provider Family Medicine; PCP Family Medicine; Referring Provider Physical Medicine & Rehabilitation; Visit Provider Physical Medicine & Rehabilitation
DX: M47.27 Other spondylosis with radiculopathy, lumbosacral region (principal)
CPT/HCPCS: 72110; 99214

== ENCOUNTER → 2022-03-22 10:14 | Outpatient (CLI) | payer MEDICARE, OTHER, SELFPAY ==
[2021-09-23 14:23] VITALS: BMI 24.7
[2022-03-22 13:12] LABS: COVID19 -Nasal RAPID Negative (Negative)
== END ==
PROVIDERS: Family Provider Family Medicine; PCP Family Medicine; Visit Provider Surgery
DX: Z01.812 Encounter for preprocedural laboratory examination (principal); Z20.822 Contact with and (suspected) exposure to COVID-19
CPT/HCPCS: 87635; C9803

== ENCOUNTER 2022-03-23 09:51 | Day surgery (SDC) | payer MEDICARE, OTHER, SELFPAY ==
[2021-09-23 14:23] VITALS: BMI 24.7
[2022-03-23 10:21] VITALS: BP 150/60; PULSE 66; RESP 16; TEMP 36.7; O2SAT 99; BMI 24.9
[2022-03-23] MEDS: LACTATED RINGERS 1,000 ML 200 ML IV (10:31)
--- NOTE | 2022-03-23 10:53 | PM.HP.1 ---
History of Present Illness History of Present Illness Date Patient Seen: 03/23/22 Time Patient Seen: 10:53 Chief complaint: DX COLONOSCOPY Narrative: 77-year-old woman with a positive fecal immunochemical test here for diagnostic colonoscopy. No abdominal pain unintentional weight loss nausea vomiting. She had previously normal colonoscopy she thinks 10 years ago. No personal or family history of intestinal malignancy. Patient History Medical History Acne Breast cyst Breast nodule Carotid stenosis Cataracts, bilateral (~2013) Chicken pox (~1948) Chronic anticoagulation Chronic headache Chronic kidney disease Facet arthropathy, lumbosacral Facial abrasion (~10/07/19) Foraminal stenosis of cervical region Fractures (~1977) Headache Hyperlipidemia Hyperparathyroidism Hypertension (~1999) Measles (~1953) Mumps (~1953) Paresthesia of left upper extremity Pruritic rash Pulmonary nodules Well adult exam Surgical History Anesthesia History of cataract removal with insertion of prosthetic lens (~2013) Status post appendectomy Status post dilation and curettage Status post tonsillectomy and adenoidectomy Status post tubal ligation Family & Social History Family History Father Cancer Grandfather Heart disease Grandmother Stroke Mother Cancer Brother No problems noted. Grandfather No problems noted. Grandmother No problems noted. Social History: household members none Tobacco & Substance use: Smoking Status Never smoker alcohol intake never alcohol intake frequency a few times a month Substance Use Type does not use Meds Home Medications and Allergies Home Medications Medication Instructions Recorded Confirmed Type multivitamin-iron 9 mg-folic acid 1 tab PO Q DAY ##0 03/20/11 03/23/22 History 400 mcg-calcium and minerals tablet (Thera M Plus (ferrous fumarate)) ferrous sulfate 325 mg (65 mg 325 mg PO DAILY 03/19/18 03/23/22 History iron) tablet triamcinolone acetonide 0.1 % 1 applic topical DAILY 07/20/19 03/23/22 History topical ointment disabled parking permit #1 ea 10/06/19 03/14/22 Rx aspirin 81 mg tablet,delayed 81 mg PO DAILY 06/20/20 03/23/22 History release (Adult Low Dose Aspirin) cyclosporine 0.05 % eye drops in a 1 drp EYE-BOTH BID 06/20/20 03/23/22 History dropperette amlodipine 5 mg tablet 5 mg PO BEDTIME #90 tabs 04/25/21 03/23/22 Rx rosuvastatin 5 mg tablet See Rx Instructions .Route 07/20/21 03/23/22 Rx .COMPLEX #90 tabs citalopram 40 mg tablet See Rx Instructions .Route 10/26/21 03/23/22 Rx .COMPLEX #90 tabs nirmatrelvir 150 mg-ritonavir 100 See Rx Instructions PO PER PKG DIR 11/28/21 03/23/22 Rx mg tablets in a dose pack (EUA) #20 ea (Paxlovid) rivaroxaban 15 mg tablet (Xarelto) 15 mg PO DAILY #90 tabs 12/15/21 03/23/22 Rx levothyroxine 88 mcg tablet 88 mcg PO DAILY #90 tabs 01/19/22 03/23/22 Rx tizanidine 2 mg tablet 2 mg PO TID PRN muscle spasticity 03/14/22 03/23/22 Rx #60 tabs lisinopril 10 mg tablet See Rx Instructions .Route 03/15/22 03/23/22 Rx .COMPLEX #90 tabs Allergies Allergy/AdvReac Type Severity Reaction Status Date / Time tramadol Allergy Severe Anaphylaxis Verified 03/23/22 10:03 hydrocodone [HYDROCODONE] Allergy Intermediate NAUSEA / Verified 03/23/22 10:03 VOMITING Sulfa (Sulfonamide Allergy Mild Hives Verified 03/23/22 10:03 Antibiotics) [SULFA (SULFONAMIDE ANTIBIOTICS)] morphine [MORPHINE] AdvReac Mild Vomiting Verified 03/23/22 10:03 OPITATES Allergy Intermediate Gastrointestinal Uncoded 03/23/22 10:03 Upset Exam Vital Signs (past 8 hours): - 03/23/22 10:21 Temperature 98.0 F Pulse Rate 66 Respiratory Rate 16 Blood Pressure 150/60 H Pulse Oximetry 99 Oxygen Delivery Method Room Air Oxygen Delivery Method Room Air Narrative Exam Narrative: General adult woman alert oriented no acute distress Assessment & Plan Assessment and plan (1) Positive FIT (fecal immunochemical test): Status: Acute Assessment & Plan narrative: 77-year-old woman with a positive fecal immunochemical test here for diagnostic colonoscopy.. Technical details were discussed. Risks, benefits, alternatives explained. Risks including but not limited to myocardial infarction, aspiration, bleeding, pain, missed lesion, incomplete examination, need for further radiographic studies, colonic perforation, and need for major abdominal surgery were discussed. All questions were answered to their satisfaction, and they are in agreement with this plan. Time Spent With Patient Critical Care time: I spent a total of [] minutes of critical care time on this patient's care today; this time is exclusive of procedural time.
--- NOTE | 2022-03-23 11:23 | PM.OP.COLON ---
Operative Date/Time/Diagnoses Date of procedure: 03/23/22 Time of procedure: 11:23 Pre-op diagnosis: Positive fecal immunochemical test Post-op diagnosis: same Procedure & Clinicians Study performed: Colonoscopy Same procedure as scheduled: Yes Indications: Positive fecal immunochemical test Surgeon: Emerson Soares Procedure Notes Procedure in detail: The history and physical was performed/updated and the patient is ASA class is 2. The procedure was discussed in detail with the patient. Potential risks complications including infection, bleeding, missed diagnosis, perforation, need for surgery, and were explained. Their questions were answered and informed consent was obtained. Patient was brought to the procedure room and placed standard monitoring equipment. The patient's vital signs were monitored continuously throughout the entire procedure. Prior to starting time-out was performed. The patient was placed in the left lateral recumbent position. Procedural sedation was administered by anesthesia. Examination began with a thorough inspection of the perianal area there was no evidence of fissures, fistulae, external hemorrhoids or cutaneous malignancy. The colonoscopy scope was then placed into the anal canal and was advanced to the cecum, which was identified by the ileocecal valve, the appendiceal orifice and the confluence of the taenia. The scope was then slowly withdrawn examining colon thoroughly in all directions, irrigating it of any residual stool. FINDINGS 1. No masses polyps or inflammation 2. Sigmoid diverticulosis The patient tolerated the procedure well. They will be discharged once criteria are met. The prep was of good/excellent quality. The withdrawl time was 7 minutes. Specimen(s): none sent Complications: none Impression: Normal colonoscopy Post-procedure Recommendations: High fiber diet Plan for aftercare: No need for further colonoscopy Disposition: same day surgery
[2022-03-23 11:29] VITALS: BP 102/43; PULSE 50; RESP 16; O2SAT 99
[2022-03-23 11:35] VITALS: BP 124/38; PULSE 60; RESP 18; O2SAT 98
[2022-03-23 11:40] VITALS: BP 103/41; PULSE 59; RESP 18; TEMP 36.2; O2SAT 97
[2022-03-23 11:55] VITALS: BP 124/56; PULSE 60; RESP 18; O2SAT 99
[2022-03-23 12:10] VITALS: BP 140/79; PULSE 62; RESP 16; O2SAT 97
== END 2022-03-23 12:10 | disposition home or self-care (01) ==
PROVIDERS: Family Provider Family Medicine; PCP Family Medicine; Referring Provider Surgery; Visit Provider Surgery
PROC: 0DJD8ZZ Inspection of Lower Intestinal Tract, Via Natural or Artificial Opening Endoscopic (ICD-10-PCS; CPT 45378; principal; 2022-03-23 10:45)
DX: R19.5 Other fecal abnormalities (principal); K57.30 Diverticulosis of large intestine without perforation or abscess without bleeding
CPT/HCPCS: 45378; J2704

== ENCOUNTER → 2022-04-04 09:54 | Outpatient (CLI) | payer MEDICARE, OTHER, SELFPAY ==
[2021-09-23 14:23] VITALS: BMI 24.7
[2022-04-04 11:36] LABS: COVID19 -Nasal RAPID Negative (Negative)
== END ==
PROVIDERS: Family Provider Family Medicine; PCP Family Medicine; Referring Provider Internal Medicine; Visit Provider Internal Medicine
DX: Z20.822 Contact with and (suspected) exposure to COVID-19 (principal)
CPT/HCPCS: 87635; C9803

== ENCOUNTER → 2022-04-05 09:18 | Outpatient (CLI) | payer MEDICARE, OTHER, SELFPAY ==
[2021-09-23 14:23] VITALS: BMI 24.7
--- NOTE | 2022-04-11 09:08 | P.PFT.S_ITS ---
Pulmonary Function Test Referral & Results Date Patient Seen: 04/05/22 Requesting provider: Heather Galvan Results: The spirometry demonstrates an FVC of 2.13 L which is 74% of predicted. The FEV1 was measured at 1.66 L which is 77% of predicted. The FEV1/FVC ratio was 78 which is 105% of predicted. Following the administration of bronchodilator there was 13% improvement in FEV1 and a 71% improvement in FEF 25-75%. Lung volumes show an SVC of 2.24 L which is 79% of predicted. The diffusing capacity was measured at 16.31 which is 63% of predicted. No hemoglobin value was provided, so no correction for potential anemia could be made, if appropriate. The maximum voluntary ventilation was reduced Interpretation: This study demonstrates probable mild obstructive lung disease based on reduc tion FEV1 and improvement post bronchodilator in both FEV1 and FEF 25-75%. However FEV1/FVC ratio is preserved There is a very mild reduction in lung volumes suggesting the presence of restrictive lung disease which may explain some of the abnormality in the FEV1 above There is a moderate reduction diffusing capacity suggesting moderate disease at the capillary alveolar level Clinical correlation suggested
== END ==
PROVIDERS: Family Provider Family Medicine; PCP Family Medicine; Referring Provider Internal Medicine Pulmonary Disease; Visit Provider Internal Medicine Pulmonary Disease
DX: R06.02 Shortness of breath (principal); J98.8 Other specified respiratory disorders
CPT/HCPCS: 94060; 94726; 94729

== ENCOUNTER 2022-04-10 12:20 | Outpatient (CLI) | payer MEDICARE, OTHER, SELFPAY ==
[2021-09-23 14:23] VITALS: BMI 24.7
[2022-04-10] VITALS (10 sets, daily range): BP systolic 120–181; BP diastolic 55–73; PULSE 62–70; RESP 12–64; TEMP 36.1; O2SAT 98–100
--- NOTE | 2022-04-10 12:21 | DI.RAD.S_ITS ---
PROCEDURE: PAIN L/S FACET INJ/BLK 1ST ALEX COMPARISON: [facility], XA, PAIN L/S FACET INJ/BLK 1ST ALEX, 02/09/2020, 12:36. INDICATIONS: SPONDYLOSIS FINDINGS: Access needles at the bilateral L2, L3 and L4 zuleyma-pedicular soft tissues for medial branch nerve block. Injection of small amount of contrast material demonstrates axis needles are extra thecal. IMPRESSION: Access needles at the bilateral L2, L3 and L4 zuleyma-pedicular soft tissues for bilateral L2, L3 and L4 medial nerve block. Dictated by: Yamileth Ramirez MD, PhD on 04/10/2022 at 14:27 Approved by: Yamileth Ramirez MD, PhD on 04/10/2022 at 14:28
[2022-04-10] MEDS: LIDOCAINE 1% (PF) 5 ML INJ (13:38)
[2022-04-10] MEDS: LIDOCAINE 2% INJ MDV 20ML 20 ML INJ (13:38)
[2022-04-10] MEDS: IOPAMIDOL 15 ML VIAL 3 ML INJ (13:39)
[2022-04-10] MEDS: MIDAZOLAM 2 MG/2 ML VIAL 3 MG IV (13:41)
--- NOTE | 2022-04-10 13:56 | P.PCN_ITS ---
Date/Time/Diagnoses Date of procedure: 04/10/22 Time of procedure: 13:56 Pre-procedure diagnosis: 1. FACET ARTHROPATHY Post-procedure diagnosis: same Procedure Notes Procedure: 1. BILATERAL L2, L3, L4 DIAGNOSTIC MB BLOCKS Indications: Heather is referred by Dr. Gerber for treatment of Bilateral Axial LBP. Physician: Wilner Tee Total Fluoroscopy time (seconds): 23 Total sedation minutes: 21 Complications: none Procedure in detail & Post-procedure care: DESCRIPTION OF PROCEDURE Fluoroscopically guided, contrast-controlled bilateral L2, L3, L4 medial branch blocks with 0.5cc of 2% Lidocaine. Following review of allergy and review of potential side effects and complications, including, but not necessarily limited to, infection, allergic reaction, local tissue breakdown, nerve injury, paralysis, stroke and possible , the patient indicated that the patient understood and agreed to proceed. An informed consent document was signed by the patient, witnessed by a nurse, and placed in the patient's chart. After review of previous anaesthesic history and IV conscious sedation the patient was deemed safe to proceed with today's procedure with IV conscious sedation as ASA class II designation. Safety time-out was performed to confirm patient ID, procedure to be performed and site of procedure. IV sedation was accomplished with a combination of 3mg of Versed was administered by the RN a fter DO order, titrated to patient comfort during the course of the procedure while the patient remained responsive to all verbal commands. In the prone position, following sterile prep and drape of the lumbar region, the right L2, L3, L4 anatomical location of the medial branch of the dorsal ramus was identified fluoroscopically. Subsequently an anesthetic skin wheal using 1% lidocaine solution was initiated at each of the anatomical spots. Subsequently then a 22-gauge 3.5-inch spinal needle was atraumatically introduced and advanced under fluoroscopic guidance at each of the corresponding sites at the right L2, L3, L4 MB. After negative aspiration, 0.2cc of Isovue 200 was injected, confirming placement without vascular or intrathecal uptake. Subsequently then 0.5cc of 2% Lidocaine solution was injected at each of the corresponding sites at the right L2, L3, L4 medial branch locations. The identical procedure was replicated on the left. The patient tolerated the procedure well without signs or symptoms of complications. The patient tolerated the procedure well without signs or symptoms of complications prior to transfer to the recovery area continued monitoring without incident. Post-procedure, the patient was monitored initiating provocative activities to measure the amount of relief from block of the facetogenic pain. The patient reported a VAS of 7 prior to the procedure and a post-procedure VAS of 1. It has been a pleasure to assist in the diagnostic and therapeutic care of your patient. POST OP INSTRUCTIONS The patient was provided with a Pain Log to complete over the next several hours and subsequent days prior to the patient's follow up with the ordering physician. 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 The patient is aware, was provided, once again, with a Pain Log and will follow up with the referring physician for review and clinical correlation.
== END 2022-04-10 14:20 | disposition home or self-care (01) ==
LOC: RAD 12:20
PROVIDERS: Family Provider Family Medicine; PCP Family Medicine; Referring Provider Physical Medicine & Rehabilitation; Visit Provider Physical Medicine & Rehabilitation
DX: M47.816 Spondylosis without myelopathy or radiculopathy, lumbar region (principal)
CPT/HCPCS: 64493; 64494; 99152; J2250

== ENCOUNTER → 2022-06-16 12:07 | Outpatient (CLI) | payer MEDICARE, OTHER, SELFPAY ==
[2021-09-23 14:23] VITALS: BMI 24.7
--- NOTE | 2022-06-16 12:08 | DI.MRI.S_ITS ---
PROCEDURE: MR LUMBAR SPINE WO CON INDICATIONS: Progressive scoliosis axial low back pain TECHNIQUE: Noncontrast sagittal T1 spin echo and T2 fast echo, sagittal STIR, and T2 fast spin echo through the lumbar spine. In cases with scoliosis, additional coronal T2 fast spin echo may be performed. COMPARISON: [facility], MR, MR LUMBAR SPINE WO CON, 08/29/2017, 12:54. FINDINGS: Image quality: Excellent. Alignment and Curvature: Mild dextro curvature, centered at L3. 4 mm retrolisthesis of L2 on L3. Trace retrolisthesis of L3 on L4, of L4 on L5, and of L5 on S1. Bone Marrow: Marrow is of normal overall signal. No acute vertebral body compression fractures. Spinal Cord: Conus medullaris terminates at the L1-L2 level. Visualized cord demonstrates normal signal and size. Paraspinous Soft Tissues: No paravertebral masses. T12-L1: Normal appearance. L1-L2: No change. Facet hypertrophy. No canal stenosis or foraminal stenosis. L2-L3: Unchanged. 4 mm retrolisthesis of L2 on L3. Posterior disc post osteophyte. Prominent bilateral facet arthropathy. Moderate canal stenosis. Moderate to severe right foraminal narrowing and marked left foraminal narrowing. There is a degree of right foraminal L2 nerve root impingement. There is marked impingement on the left L2 nerve root. L3-L4: Diffuse posterior disc post osteophyte. Prominent bilateral facet and ligament hypertrophy. Severe canal stenosis, likely unchanged (choice of axial scan plane is different between the 2 studies). Severe right foraminal narrowing with right foraminal L3 nerve root impingement. Moderate to severe left foraminal narrowing with a degree of left foraminal L3 nerve root impingement. L4-L5: Interval progression. Disc bulge. Facet and ligament hypertrophy. Severe canal stenosis. Moderate bilateral foraminal narrowing with flattening deformity on the bilateral exiting L4 nerve roots. L5-S1: Disc bulge. Facet hypertrophy. No significant canal stenosis. Severe right foraminal narrowing with a degree of right foraminal L5 nerve root impingement. Moderate to severe left foraminal narrowing with flattening deformity on the exiting left L5 nerve root. IMPRESSION: 1. Scoliotic curvature, diffuse degenerative change with multilevel facet arthropathy. 2. Mild interval progression. 3. Canal stenosis is moderate at L2-L3, severe at L3-L4, and severe at L4-L5. 4. Significant multilevel foraminal narrowing as described above. This includes moderate to severe right foraminal narrowing and marked left foraminal narrowing at L2-L3, severe right foraminal narrowing and moderate to severe left foraminal narrowing at L3-L4, and severe right foraminal narrowing and moderate to severe left foraminal narrowing at L5-S1. Dictated by: Ulises Navarro M.D. on 06/18/2022 at 8:51 Approved by: Ulises Navarro M.D. on 06/18/2022 at 9:01
== END ==
PROVIDERS: Family Provider Family Medicine; PCP Family Medicine; Referring Provider Physical Medicine & Rehabilitation; Visit Provider Physical Medicine & Rehabilitation
DX: M99.83 Other biomechanical lesions of lumbar region (principal); M41.9 Scoliosis, unspecified; M48.061 Spinal stenosis, lumbar region without neurogenic claudication; M48.07 Spinal stenosis, lumbosacral region
CPT/HCPCS: 72148

== ENCOUNTER 2022-06-28 07:26 | Outpatient (CLI) | payer MEDICARE, OTHER, SELFPAY ==
[2021-09-23 14:23] VITALS: BMI 24.7
[2022-06-28] VITALS (13 sets, daily range): BP systolic 120–165; BP diastolic 55–71; PULSE 52–70; RESP 14–25; TEMP 36.4; O2SAT 99–100
--- NOTE | 2022-06-28 07:28 | DI.RAD.S_ITS ---
PROCEDURE: PAIN L/S MED/LAT N RFA BILAT INDICATIONS: SPONDYLOSIS COMPARISON: [facility], MR, MR LUMBAR SPINE WO CON, 06/16/2022, 12:25. [facility], CR, XR LUMBAR SPINE MIN 4V, 03/14/2022, 9:27. FINDINGS: Fluoroscopic spot filming was performed to verify placement of spinal needles at the right L2, L3 and L4 level(s), as labeled on the films. Appropriate location(s) of the needle tip(s) was confirmed by injection of iodinated contrast. IMPRESSION: Fluoroscopy for pain management. Dictated by: Valeria Napier M.D. on 06/28/2022 at 12:20 Approved by: Valeria Napier M.D. on 06/28/2022 at 12:20
[2022-06-28] MEDS: MIDAZOLAM 2 MG/2 ML VIAL IV (08:25)
[2022-06-28] MEDS: LIDOCAINE 1% 20 ML INJ (08:31)
[2022-06-28] MEDS: BUPIVACAINE 0.5% (PF) 10 ML VIAL 5 ML SUBCUT (08:32)
[2022-06-28] MEDS: MIDAZOLAM 2 MG/2 ML VIAL 1 MG IV ×2 (08:39→08:52)
--- NOTE | 2022-06-28 09:14 | P.PCN_ITS ---
Date/Time/Diagnoses Date of procedure: 06/28/22 Time of procedure: 09:14 Pre-procedure diagnosis: 1. RECALCITRANT FACET ARTHROPATHY Post-procedure diagnosis: same Procedure Notes Procedure: 1. BILATERAL L2, L3 AND L4 MEDIAL BRANCH RADIOFREQUENCY NEUROTOMY Indications: Heather is referred by Dr. Gerber for treatment of facet arthropathy. Physician: Wilner Tee Total Fluoroscopy time (seconds): 28 Total sedation minutes: 48 Complications: none Procedure in detail & Post-procedure care: DESCRIPTION OF PROCEDURE Bilateral L2, L3 and L4 medial branch radiofrequency neurotomy The patient is well known to this clinic having undergone previous facet injections with good but temporary relief. The patient has experienced appropriate, concordant relief with previous facet and median branch blocks but the patient's pain has been recalcitrant to further conservative measures. Therefore, based upon the patient's relief and persistent symptoms, the patient is considered an appropriate candidate for facet rhizotomy. All of the patient's questions regarding the risks versus benefits of the procedure, including, but not limited to, bleeding, infection, temporary as well as lasting nerve injury, paralysis, stroke, and , as well treatment alternatives were answered to satisfaction. After obtaining informed consent, denial of pertinent drug allergies, as well as being made aware of the potential risks of bleeding, infection, spinal cord trauma, paralysis, temporary and permanent nerve damage, seizure, stroke, and possible , the patient was brought to the fluoroscopy suite and positioned prone on the fluoroscopy table. The lumbar region was prepped with Betadine and covered with a fenestrated drape in the usual sterile fashion. Appropriate monitors applied including pulse oxi meter, pulse, and blood pressure for regular monitoring throughout the procedure. After review of previous anaesthesic history and IV conscious sedation the patient was deemed safe to proceed with today's procedure with IV conscious sedation as ASA class II designation. Safety time-out was performed to confirm patient ID, procedure to be performed and site of procedure. IV sedation was accomplished with a combination of 4mg of Versed administered by the RN after DO order, titrated to patient comfort during the course of the procedure while the patient remained responsive to all verbal commands. After local infiltration using 1% lidocaine, under fluoroscopic guidance, a 10- cm RF insulated Venom needle with a 10-mm active tip was positioned parallel to the junction of the right the superior articulating process where the L4 medial branch resides. Needle placement was confirmed with motor stimulation of .5v on the right which produced local stimulation without radicular component. The stimulation was then increased to 2v with, once again, only local multifidus stimulation without radicular component. The needle was then removed and the identical procedure was performed along the length of the right L3 medial branch with motor stimulation at .7v on the right. The identical procedure was once again performed along the length of the right L2 and medial branch with motor stimulation of .5v on the right. The medial branches were then anesthetised with 0.5% marcaine. This was then followed by two discreet lesions performed at 80 degrees Celsius for 90 seconds each. The identical procedures were repeated on the left. The patient tolerated the procedure well without signs or symptoms of complications prior to transfer to the recovery area continued monitoring without incident. The patient was then transferred to the recovery area where they were observed for an appropriate period of time after the injection. The patient reported a VAS score of 9 prior to the procedure and a post-procedure VAS of 0. POST OP INSTRUCTIONS The patient was provided a Pain Log to continue to record the patient's response to the target-specific procedure prior to the patient's follow-up visit with the referring physician. Additionally, specific post-injection care instructions and a contact number to our office were provided if concerns arise regarding possible complications associated with the procedure are suspected.
== END 2022-06-28 09:35 | disposition home or self-care (01) ==
LOC: RAD 07:27
PROVIDERS: Family Provider Family Medicine; PCP Family Medicine; Referring Provider Physical Medicine & Rehabilitation; Visit Provider Physical Medicine & Rehabilitation
DX: M47.816 Spondylosis without myelopathy or radiculopathy, lumbar region (principal)
CPT/HCPCS: 64635; 64636; 99152; 99153; J2250

== ENCOUNTER → 2022-10-10 08:38 | Outpatient (CLI) | payer MEDICARE, OTHER, SELFPAY ==
[2022-09-17 16:55] VITALS: BMI 24.7
[2022-10-10 10:02] LABS: Alanine Aminotransferase 21 IU/L (<35); Albumin Globulin Ratio 1.4 (1.0-2.8); Alkaline Phosphatase 57 U/L (38-126); Aspartate Aminotransferase 20 IU/L (14-36); BUN Creatinine Ratio 16.8 (6-22); Bilirubin Total 0.5 mg/dL (0.2-1.3); Blood Urea Nitrogen 26 mg/dL (7-17); Calcium 10.4 mg/dL (8.4-10.2); Carbon Dioxide 25 mmol/L (22-32); Chloride 106 mmol/L (98-107); Estimated Glomerular Filt Rate 34 mL/min (>60); Globulin 2.8 g/dL (1.7-4.1); Glucose 94 mg/dL (80-110); HEMOLYSIS < 15 (0-50); Potassium 5.2 mmol/L (3.4-5.1); Sodium 138 mmol/L (137-145); Total Protein 6.8 g/dL (6.3-8.2)
[2022-10-10 10:32] LABS: Add Manual Diff / Slide Review NO; Basophils Absolute Auto 0 /uL (0-100); Basophils Percent Auto 0.8 % (0-2); Eosinophils Absolute Auto 100 /uL (0-450); Eosinophils Percent Auto 2.2 % (2-4); Hematocrit 34.1 % (36-46); Hemoglobin 11.5 g/dL (12.0-16.0); Lymphocytes Absolute Auto 1600 /uL (1100-4500); Mean Corpuscular HGB Conc 33.8 % (30-36); Mean Corpuscular Volume 97.4 fL (80-100); Monocytes Absolute Auto 400 /uL (0-900); Monocytes Percent Auto 6.4 % (3-14); Neutrophils Absolute Auto 4000 /uL (1500-7000); Neutrophils Percent Auto 64.6 % (50-75); Platelet Count 229 X10^3/uL (150-400); Red Cell Distribution Width 12.7 % (11.6-14.8); White Blood Cell Count 6.2 X10^3/uL (4.5-11.0)
[2022-10-10 10:40] LABS: TSH w/ Reflex to FT4 0.17 uIU/mL (0.47-4.68)
[2022-10-10 11:08] LABS: Free T4, Direct Thyroxine 1.11 ng/dL (0.78-2.19)
[2022-10-10 11:14] LABS: Creatinine Urine Random 78.6 mg/dL; Protein (Total) Urine Random 10 mg/dL (0-12); Protein Creatinine Ratio Urine 0.12 GRAM/24H
[2022-10-10 11:19] LABS: Microalbumi Creatinin Ratio Ur 38.1 ug/mg CR (<30)
[2022-10-12 13:56] LABS: Calcium 10.2 mg/dL (8.7-10.3); Parathyroid Hormone, Intact 50 pg/mL (15-65)
== END ==
PROVIDERS: Family Provider Family Medicine; PCP Family Medicine; Referring Provider Internal Medicine Nephrology; Visit Provider Internal Medicine Nephrology
DX: N18.32 Chronic kidney disease, stage 3b (principal); E78.2 Mixed hyperlipidemia; E21.3 Hyperparathyroidism, unspecified; I10 Essential (primary) hypertension
CPT/HCPCS: 36415; 80053; 82043; 82310; 82570; 83970; 84156; 84439; 84443; 85025

== ENCOUNTER 2022-10-11 08:12 | Outpatient (CLI) | payer MEDICARE, OTHER, SELFPAY ==
[2022-09-17 16:55] VITALS: BMI 24.7
[2022-10-11] VITALS (8 sets, daily range): BP systolic 134–177; BP diastolic 61–70; PULSE 50–62; RESP 12–19; TEMP 36.6; O2SAT 99–100
--- NOTE | 2022-10-11 08:13 | DI.RAD.S_ITS ---
PROCEDURE: PAIN L INTERLAMINAR/CAUDAL INJ INDICATIONS: SPONDYLOSIS COMPARISON: [facility], XA, PAIN L INTERLAMINAR/CAUDAL INJ, 12/01/2019, 10:26. FINDINGS: Fluoroscopic spot filming was performed to verify placement of spinal needles at the needle placement overlying L4-5. level(s), as labeled on the films. Appropriate location(s) of the needle tip(s) was confirmed by injection of iodinated contrast. IMPRESSION: L4-5 needle placement. Dictated by: Cori Lynn M.D. on 10/11/2022 at 14:46 Approved by: Cori Lynn M.D. on 10/11/2022 at 14:46
[2022-10-11] MEDS: MIDAZOLAM 2 MG/2 ML VIAL IV (09:06)
[2022-10-11] MEDS: BETAMETHASONE 30 MG/5 ML MDV 6 MG INJ (09:13)
[2022-10-11] MEDS: DEXAMETHASONE 10 MG/ML VIAL 20 MG INJ (09:13)
[2022-10-11] MEDS: IOPAMIDOL 15 ML VIAL 3 ML INJ (09:13)
[2022-10-11] MEDS: BUPIVACAINE 0.25% (PF) VIAL 2 ML INJ (09:13)
--- NOTE | 2022-10-11 09:22 | P.PCN_ITS ---
Date/Time/Diagnoses Date of procedure: 10/11/22 Time of procedure: 09:22 Pre-procedure diagnosis: 1. HNP WITH RADICULAR FEATURES, 2. MULTILEVEL CENTRAL STENOSIS, Post-procedure diagnosis: same Procedure Notes Procedure: 1. FLUOROSCOPICALLY GUIDED CONTRAST CONTROLLED INTERLAMINAR EPIDURAL STEROID INJECTION -L4/5 Indications: Heather is referred by Dr. Gerber for treatment of Bilateral Foraminal Stenosis R>L LE symptoms. Physician: Wilner Tee Total Fluoroscopy time (seconds): 9 Total sedation minutes: 13 Complications: none Procedure in detail & Post-procedure care: FINDINGS Multilevel Central Spinal Stenosis with Nerve Root Compression DESCRIPTION OF PROCEDURE Fluoroscopically guided, contrast-controlled L4/5 translaminar epidural steroid injection. Following review of allergy and review of potential side effects and complications, including, but not necessarily limited to, infection, allergic reaction, local tissue breakdown, temporary as well as permanent nerve injury, paralysis, stroke and possible , the patient indicated that the patient understood and agreed to proceed. An informed consent document was signed by the patient, witnessed by a nurse, and placed in the patient's chart. Additionally, other treatment options including modalities, medications, and physical therapy were reviewed with the patient. After review of previous anaesthesic history and IV conscious sedation the patient was deemed safe to proceed with today?s procedure with IV conscious sedation as ASA class II designation. Safety time-out was performed to confirm patient ID, procedure to be performed and site of procedure. IV sedation was accomplished with a combination of 2mg of Versed was administered by the RN after DO order, titrated to patient comfort during the course of the procedure while the patient remained responsive to all verbal commands In the prone position, following sterile prep and drape of the lumbar region, the L4/5 translaminar space was identified fluoroscopically. The skin was anesthetized via a 25-gauge, 1.5inch needle with 1% lidocaine solution. At this point, a 22-gauge short bevel spinal needle was atraumatically introduced and advanced under fluoroscopic guidance into the region of the L4/5 translaminar space. Depth was confirmed on lateral view. Radiological data, including multiple fluoroscopic views of the lumbar spine, reveal a spinal needle at the L4/5 translaminar space. Lateral views then show placement of the needle in the epidural space. Subsequent views show contrast material flowing superiorly and inferiorly in the epidural space. No vascular or intrathecal uptake is observed. At this point, using loss of resistance technique with saline and air, the epidural space was entered. This was confirmed following negative aspiration with injection of approximately 1.5cc of Isovue 200, showing excellent epidural flow without vascular or intrathecal uptake. At this point, 1cc of 1% lidocaine solution combined with 3cc or 20mg of dexamethasone and 6mg betamethasone was injected without incident. The patient tolerated the procedure well without signs or symptoms of complications prior to transfer to the recovery area continued monitoring without incident. The patient was then transferred to the recovery area where they were observed for an appropriate period of time after the injection. The patient reported a VAS score of 6 prior to the procedure and a post- procedure VAS of 0. POST OP INSTRUCTIONS The patient was provided a Pain Log to continue to record their response to the target-specific procedure prior to follow-up visit with their referring physician. Additionally, specific post-injection care instructions and a contact number to our office were provided if concerns arise regarding possible complications associated with the procedure are suspected.
== END 2022-10-11 09:39 | disposition home or self-care (01) ==
PROVIDERS: Family Provider Family Medicine; PCP Family Medicine; Referring Provider Physical Medicine & Rehabilitation; Visit Provider Physical Medicine & Rehabilitation
DX: M51.16 Intervertebral disc disorders with radiculopathy, lumbar region (principal); M48.061 Spinal stenosis, lumbar region without neurogenic claudication
CPT/HCPCS: 62323; 99152; J0702; J1100; J2250; J3490

== ENCOUNTER → 2023-01-24 09:19 | Outpatient (CLI) | payer MEDICARE, OTHER, SELFPAY ==
[2022-09-17 16:55] VITALS: BMI 24.7
--- NOTE | 2023-01-24 | DI.MG.S_ITS ---
BILATERAL DIGITAL SCREENING MAMMOGRAM 3D/2D WITH CAD: 01/24/2023 CLINICAL: Routine screening. Family history of breast cancer. Comparison is made to exams dated: 01/12/2022 mammogram, 04/14/2021 mammogram, 01/03/2021 mammogram, and 12/15/2019 mammogram - [facility]. Both breasts are heterogeneously dense, which may obscure small masses (category c / 51-75% glandular tissue). Current study was also evaluated with a Computer Aided Detection (CAD) system. There are benign calcifications in both breasts. There also are benign post operative findings in the left breast. No significant masses, calcifications, or other findings are seen in either breast. There has been no significant interval change. IMPRESSION: BENIGN There is no mammographic evidence of malignancy. A 1 year screening mammogram is recommended. Based on the Tyrer Cuzick model (a risk assessment model) the patient's lifetime risk is 9.5% and her 10 year risk is 0.0%. According to the ACR, ACS, and NCCN guidelines, an annual breast MRI exam along with mammogram is recommended if the patient's lifetime risk is 20% or greater. This exam was interpreted at Station ID: [id number]. NOTE: For mammograms, a report in lay terms will be sent to the patient. Approximately 15% of breast malignancies will not be visualized mammographically. In the management of a palpable breast mass, a negative mammogram must not discourage biopsy of a clinically suspicious lesion. Electronically Signed By: Michell sofia/iesha:01/24/2023 16:24:36 letter sent: Normal Exam ACR BI-RADS Category 2: Benign Finding(s) 3342F
== END ==
PROVIDERS: Family Provider Family Medicine; PCP Family Medicine; Referring Provider Family Medicine; Visit Provider Family Medicine
DX: Z12.31 Encounter for screening mammogram for malignant neoplasm of breast (principal); Z80.3 Family history of malignant neoplasm of breast
CPT/HCPCS: 77063; 77067

== ENCOUNTER → 2023-03-08 14:52 | Outpatient (CLI) | payer MEDICARE, OTHER, SELFPAY ==
[2022-09-17 16:55] VITALS: BMI 24.7
[2023-03-08 15:26] LABS: Add Manual Diff / Slide Review NO; Basophils Absolute Auto 0 /uL (0-100); Basophils Percent Auto 0.5 % (0-2); Eosinophils Absolute Auto 200 /uL (0-450); Eosinophils Percent Auto 2.4 % (2-4); Hematocrit 35.7 % (36-46); Hemoglobin 11.8 g/dL (12.0-16.0); Lymphocytes Absolute Auto 1900 /uL (1100-4500); Lymphocytes Percent Auto 22.3 % (25-40); Mean Corpuscular HGB Conc 33.1 % (30-36); Mean Corpuscular Hemoglobin 32.3 PG (26-34); Mean Corpuscular Volume 97.6 fL (80-100); Monocytes Absolute Auto 700 /uL (0-900); Monocytes Percent Auto 7.7 % (3-14); Neutrophils Absolute Auto 5700 /uL (1500-7000); Neutrophils Percent Auto 67.1 % (50-75); Platelet Count 245 X10^3/uL (150-400); Red Blood Cell Count 3.66 X10^6/uL (4.0-5.2); Red Cell Distribution Width 12.4 % (11.6-14.8); White Blood Cell Count 8.6 X10^3/uL (4.5-11.0)
[2023-03-08 15:48] LABS: Alanine Aminotransferase 17 IU/L (<35); Albumin 4.4 g/dL (3.5-5.0); Albumin Globulin Ratio 1.4 (1.0-2.8); Alkaline Phosphatase 67 U/L (38-126); Aspartate Aminotransferase 23 IU/L (14-36); BUN Creatinine Ratio 26.1 (6-22); Bilirubin Total 0.4 mg/dL (0.2-1.3); Blood Urea Nitrogen 36 mg/dL (7-17); Calcium 10.9 mg/dL (8.4-10.2); Carbon Dioxide 24 mmol/L (22-32); Chloride 106 mmol/L (98-107); Estimated Glomerular Filt Rate 39 mL/min (>60); Globulin 3.2 g/dL (1.7-4.1); Glucose 109 mg/dL (80-110); HEMOLYSIS < 15 (0-50); Iron 73 ug/dL (37-170); Sodium 137 mmol/L (137-145); Total Protein 7.6 g/dL (6.3-8.2)
[2023-03-08 15:51] LABS: Potassium 5.8 mmol/L (3.4-5.1)
[2023-03-08 16:17] LABS: TSH w/ Reflex to FT4 0.07 uIU/mL (0.47-4.68)
[2023-03-08 16:34] LABS: Vitamin B12 238 pg/mL (239-931)
[2023-03-08 17:30] LABS: Free T4, Direct Thyroxine 1.41 ng/dL (0.78-2.19)
== END ==
PROVIDERS: Family Provider Family Medicine; PCP Family Medicine; Referring Provider Family Medicine; Visit Provider Family Medicine
DX: E78.5 Hyperlipidemia, unspecified (principal); N18.9 Chronic kidney disease, unspecified; D35.1 Benign neoplasm of parathyroid gland; I10 Essential (primary) hypertension; N63.0 Unspecified lump in unspecified breast; K57.90 Diverticulosis of intestine, part unspecified, without perforation or abscess without bleeding
CPT/HCPCS: 36415; 80053; 82397; 82607; 83540; 84439; 84443; 85025

== ENCOUNTER → 2023-07-05 15:43 | Outpatient (CLI) | payer MEDICARE, OTHER, SELFPAY ==
[2022-09-17 16:55] VITALS: BMI 24.7
--- NOTE | 2023-07-05 15:45 | DI.MRI.S_ITS ---
PROCEDURE: MR HEAD/BRAIN WO CON INDICATIONS: Cervicogenic headache TECHNIQUE: Non-contrast axial T1 spin echo, axial T2 fast spin echo, sagittal and axial FLAIR, coronal T2 fast spin echo, axial gradient echo, axial diffusion and ADC through the brain. COMPARISON: [facility], , MR HEAD/BRAIN WO CON, 02/02/2021, 9:22. FINDINGS: Image quality: Excellent. CSF spaces: Ventricles appear symmetric in size and shape. Basal cisterns are patent. No extra-axial fluid collections. Brain: No intracranial bleeds or mass effects. There is cerebral volume loss for age. There are very minimal periventricular and deep white matter chronic small vessel ischemic changes. Brainstem appears normal. Diffusion-weighted images show no acute infarct. No chronic ischemic insults. Normal intravascular flow voids are present. Skull and face: Calvarial bone marrow is normal in signal. Orbits are normal. Sinuses: Sinuses and mastoids are clear. IMPRESSION: Negative brain MRI for patient age. Very minimal small vessel ischemic change. No acute intracranial process. Dictated by: Ulises Navarro M.D. on 07/08/2023 at 9:09 Approved by: Ulises Navarro M.D. on 07/08/2023 at 9:10
--- NOTE | 2023-07-05 15:45 | DI.MRI.S_ITS ---
PROCEDURE: MR CERVICAL SPINE WO CON INDICATIONS: Cervicogenic headache TECHNIQUE: Noncontrast sagittal T1 spin echo and T2 fast spin echo, sagittal STIR, foraminal oblique sagittal T2 fast spin echo, and axial gradient echo or T2 fast spin echo through the cervical spine. COMPARISON: [facility], MR, MR CERVICAL SPINE WO CON, 02/02/2021, 9:22. FINDINGS: Image quality: Excellent. Alignment and Curvature: There is normal bony alignment. Bone Marrow: Marrow demonstrates normal overall signal. Spinal Cord: Visualized spinal cord has normal size and signal. No cerebellar tonsillar herniation. Paraspinous Soft Tissues: No paravertebral masses. Prevertebral soft tissues are normal in thickness. C2-C3: Small central posterior disc protrusion is decreased. There is no nerve root impingement. No canal stenosis. Bilateral facet hypertrophy. No significant foraminal stenosis. C3-C4: Right paracentral disc protrusion is decreased. Very mild indentation on the cord. There is mild canal stenosis. There is bilateral facet hypertrophy. Mild bilateral foraminal narrowing. C4-C5: Minimal disc bulge. Mild canal stenosis. No significant foraminal narrowing. C5-C6: Definite interval progression. Significant interval increase in a central posterior disc protrusion indenting on the ventral cord. AP diameter of the central canal was previously 8.8 mm. It is currently 7.7 mm bilateral uncovertebral joint hypertrophy. Bilateral facet hypertrophy. Moderate to severe right foraminal narrowing with a mild degree of right foraminal C6. Moderate left foraminal narrowing. C6-C7: Mild chronic disc height loss. Disc bulge. Borderline canal stenosis. Bilateral uncovertebral joint hypertrophy. Moderate right foraminal narrowing with mild flattening deformity on the exiting right C7 nerve root. C7-T1: Normal appearance. IMPRESSION: 1. Progressive findings at C5-C6. Significant interval increase in a central posterior disc protrusion indenting on the ventral cord. There is now moderate to severe canal stenosis. 2. Canal stenosis is mild at C4-C5 borderline at C6-C7. 3. Multilevel foraminal narrowing as described above. Findings include moderate to severe right foraminal narrowing at C5-C6. Dictated by: Ulises Navarro M.D. on 07/08/2023 at 9:11 Approved by: Ulises Navarro M.D. on 07/08/2023 at 9:20
== END ==
PROVIDERS: Family Provider Family Medicine; PCP Family Medicine; Referring Provider Physician Assistant; Visit Provider Physician Assistant
DX: G44.86 Cervicogenic headache (principal); M48.02 Spinal stenosis, cervical region; M50.21 Other cervical disc displacement, high cervical region; M47.812 Spondylosis without myelopathy or radiculopathy, cervical region
CPT/HCPCS: 70551; 72141

== ENCOUNTER → 2023-07-26 15:35 | Outpatient (CLI) | payer MEDICARE, OTHER, SELFPAY ==
[2022-09-17 16:55] VITALS: BMI 24.7
[2023-07-26 16:18] LABS: Add Manual Diff / Slide Review NO; Basophils Absolute Auto 0 /uL (0-100); Basophils Percent Auto 0.7 % (0-2); Eosinophils Absolute Auto 100 /uL (0-450); Eosinophils Percent Auto 1.8 % (2-4); Hematocrit 31.4 % (36-46); Hemoglobin 10.4 g/dL (12.0-16.0); Lymphocytes Absolute Auto 2100 /uL (1100-4500); Lymphocytes Percent Auto 28.8 % (25-40); Mean Corpuscular HGB Conc 33.2 % (30-36); Mean Corpuscular Hemoglobin 32.4 PG (26-34); Mean Corpuscular Volume 97.6 fL (80-100); Monocytes Absolute Auto 600 /uL (0-900); Monocytes Percent Auto 8.5 % (3-14); Neutrophils Absolute Auto 4300 /uL (1500-7000); Neutrophils Percent Auto 60.2 % (50-75); Platelet Count 268 X10^3/uL (150-400); Red Blood Cell Count 3.21 X10^6/uL (4.0-5.2); White Blood Cell Count 7.2 X10^3/uL (4.5-11.0)
[2023-07-26 16:47] LABS: HEMOLYSIS < 15 (0-50)
[2023-07-26 16:51] LABS: Iron 71 ug/dL (37-170)
[2023-07-26 16:53] LABS: Alanine Aminotransferase 20 IU/L (<35); Albumin 4.3 g/dL (3.5-5.0); Albumin Globulin Ratio 1.6 (1.0-2.8); Alkaline Phosphatase 65 U/L (38-126); Aspartate Aminotransferase 24 IU/L (14-36); BUN Creatinine Ratio 24.5 (6-22); Bilirubin Total 0.3 mg/dL (0.2-1.3); Blood Urea Nitrogen 45 mg/dL (7-17); Calcium 10.4 mg/dL (8.4-10.2); Carbon Dioxide 29 mmol/L (22-32); Chloride 104 mmol/L (98-107); Estimated Glomerular Filt Rate 28 mL/min (>60); Globulin 2.7 g/dL (1.7-4.1); Glucose 104 mg/dL (80-110); HEMOLYSIS < 15 (0-50); Potassium 4.5 mmol/L (3.4-5.1); Sodium 136 mmol/L (137-145)
[2023-07-26 17:01] LABS: Transferrin 189 mg/dL (206-381)
[2023-07-26 17:02] LABS: Percent Iron Saturation 31 % (15-50); Total Iron Binding Capacity 232 ug/dL (265-497)
[2023-07-26 17:12] LABS: Free T4, Direct Thyroxine 1.13 ng/dL (0.78-2.19)
[2023-07-26 17:23] LABS: Thyroid Stimulating Hormone 0.358 uIU/mL (0.47-4.68)
[2023-07-26 17:41] LABS: Vitamin B12 235 pg/mL (239-931)
== END ==
PROVIDERS: Family Provider Family Medicine; PCP Family Medicine; Referring Provider Family Medicine; Visit Provider Family Medicine
DX: E78.5 Hyperlipidemia, unspecified (principal); N17.9 Acute kidney failure, unspecified; E21.3 Hyperparathyroidism, unspecified; E03.9 Hypothyroidism, unspecified; D64.9 Anemia, unspecified
CPT/HCPCS: 36415; 80053; 82607; 83540; 83550; 84439; 84443; 85025

== ENCOUNTER 2023-09-09 14:30 | Outpatient (RCR) | payer MEDICARE, OTHER, SELFPAY ==
[2022-09-17 16:55] VITALS: BMI 24.7
--- NOTE | 2023-07-16 12:43 | PT.OIE ---
Current Diagnoses Cervicogenic headache (07/16/23) Past Medical History (Last Reviewed 06/04/23 @ 10:59 by Zaki Gerber DO) Acne Breast cyst Breast nodule Carotid stenosis Cataracts, bilateral (~2013) Cellulitis Chicken pox (~1948) Chronic anticoagulation Chronic headache Chronic kidney disease Diverticulosis Eczema Encounter for wellness examination in adult Facet arthropathy, lumbosacral Facial abrasion (~10/07/19) Foraminal stenosis of cervical region Fractures (~1977) Headache Hyperlipidemia Hyperparathyroidism Hypertension (~1999) Measles (~1953) Medicare annual wellness visit, subsequent Mumps (~1953) Paresthesia of left upper extremity Pruritic rash Pulmonary nodules Trochanteric bursitis, left hip Well adult exam Past Surgical History (Last Reviewed 06/04/23 @ 10:59 by Zaki Gerber DO) Anesthesia History of cataract removal with insertion of prosthetic lens (~2013) Status post appendectomy Status post dilation and curettage Status post tonsillectomy and adenoidectomy Status post tubal ligation Visit Care Team Role Provider Type Zaki Gerber DO Family Provider Physician Primary Care Provider Specialty: Family Practice Address: [address] [place] [address], [id number] Email: [email or web address] [email or web address] Attending Provider Non-Staff Referring Provider Specialty: Medical Address: [address] [place] [address], [id number] Email: Physical Therapy Initial Evaluation PT-OP-A Visit Information Start: 07/14/23 08:49 Freq: Status: Active Protocol: Document 07/16/23 11:20 MB (Rec: 07/16/23 11:43 MB [id number]) Out-Patient Physical Therapy Visit Information Visit Information Visit Type Initial Evaluation Visit Note Medicare 04/26 before KX Visit Start Time 11:20 Visit Stop Time 12:00 Visit Number 1 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 Pt is imbalanced with gait and runs hand along the wall with gait. Pt had a fall 3 weeks ago and she tripped on the raised side walk walking into the dentist and landed on both knees and hit right palm, left shoulder and left cheek. Every time she has a fall, her neck and headache pain gets worse. She is on blood thinners and has had B carotid endarterectomies per her report. She had another fall in May in the house and she landed flat on her back and whacked her head. Pt has a four wheeled walker [employer]. She lives at home alone. She has a life alert bracelet that is in her pocket. Pt denies light-headedness when getting up in the morning . She does sit for a while before standing up. Dr. Gerber is her PCP and they are monitoring her BP. Her BP medication was changed from Lisinopril to HCTZ and Losartan and her headaches are not better and she has some concern about this. Pt has scoliosis and two herniated discs in her LB. Pt sleeps on her stomach or side. She reports needing surgery at left elbow for lateral forearm pain and tunnel issues and that she needs carpal tunnel surgery on the right. She has left thumb arthritis. Prior Treatments and Tests MRI brain 07/05/23: negative MRI cervical spine 07/05/23: 1. Progressive findings at C5- C6. Significant interval increase in a central posterior disc protrusion indenting on the ventral cord. There is now moderate to severe canal stenosis. 2. Canal stenosis is mild at C4-C5 borderline at C6-C7. 3. Multilevel foraminal narrowing as described above. Findings include moderate to severe right foraminal narrowing at C5-C6. Treatment Goals Patient/Caregiver Goals Decrease neck pain and headaches PT-OP-C Subjective Start: 07/14/23 08:49 Freq: Status: Active Protocol: Document 07/16/23 11:20 MB (Rec: 07/16/23 12:42 MB [id number]) OP-PT Subjective Patient Comments Patient Comments See history of current condition Patient Questionnaires Neck Disability Index NDI Score 23/50 Neck Disability Index Impairment 40 to 59% Impaired (Score 20- 29) PT-OP-J Posture/Palpation/Skin Start: 07/14/23 08:49 Freq: Status: Active Protocol: Document 07/16/23 11:20 MB (Rec: 07/16/23 12:42 MB [id number]) Posture Evaluation Comments Posture Comments Standing posture: Forward head , rounded shoulders, increased thoracic kyphosis with left sided convexity and right iliac crest higher than the left, left shoulder mildly higher and more forward than the right. PT-OP-K Range of Motion Start: 07/14/23 08:49 Freq: Status: Active Protocol: Document 07/16/23 11:20 MB (Rec: 07/16/23 12:42 MB [id number]) Cervical Spine Range of Motion Cervical Spine Active Testing Position Standing Flexion 40 Extension 35 Rotation Left 50 Rotation Right 50 Lateral Flexion Left 10 Lateral Flexion Right 15 PT-OP-M Strength Start: 07/16/23 12:42 Freq: Status: Active Protocol: Document 07/16/23 11:20 MB (Rec: 07/16/23 12:43 MB [id number]) Shoulder Strength Shoulder Manual Muscle Testing Bilateral Flexion 5 Normal Abduction (C5) 5 Normal Elbow/Forearm Strength Elbow and Forearm Manual Muscle Testing Left Flexion (C6) 4+ Good+ Extension (C7) 4+ Good+ Pronation 4- Good- Supination 3- Fair- Right Flexion (C6) 5 Normal Extension (C7) 5 Normal Pronation 4+ Good+ Supination 3+ Fair+ PT-OP-Q Treatments Start: 07/14/23 08:49 Freq: Status: Active Protocol: Document 07/16/23 11:20 MB (Rec: 07/16/23 11:43 MB [id number]) Therapeutic Activity Therapeutic Activity Orthostatic assessment Comments R UE BP and HR: supine 182/76, 60; standing 118/77, 78; standing 1': 151/78, 71, positive orthostatics, extensive conversation about orthostasis medication and provided handout about orthostasis, Several bed mobilities tried with log roll technique instructed today. Self-Care/Home Management Treatment Education Patient Education Fall Risk,Joint Protection, Safety Other Education Extensive education that PT may be very beneficial with exercise and manual work but if she con't to fall and hurt herself, it will not matter if PT is helpful or not. Heavily educated pt to use LRAD and she is agreeable to try cane in the home and rollator outside. Ed pt on benefits of side sleeping and not stomach sleeping for her neck, ed on increasing non-caffeinated fluid intake and to con't heat . Ed in log roll technique and practiced today, ed pt that PT will send PT eval to Dr. Gerber as well so he can have a record of orthostasis PT-OP-T Assessment and Plan Start: 07/14/23 08:49 Freq: Status: Active Protocol: Document 07/16/23 11:20 MB (Rec: 07/16/23 12:42 MB [id number]) Physical Therapy Assessment Rehab Potential Rehabilitation Potential Fair Evaluation Complexity Number of Personal Factors/Comorbidities 1-2 Number of Body Systems Impaired 3 Clinical Presentation at Evaluation Evolving Impairments Impairments Activity Tolerance,Balance, Functional Activities, Functional Mobility,Gait,Pain, Posture,ROM,Sensation,Soft Tissue Mobility,Strength, Transfers,Vestibular Other Concerns Fall Risk High fall risk Goals 4 Impairment Lack of postural, cervical and balance HEP Custodial Goal (LTG) Pt will perform progressive HEP including postural exercises, pelvic realignment exercises, core, intrascapular and LE strengthening and balance exercises with I to improve pain, balance and quality of life. LTG Duration 8 weeks 3 Impairment NDI score 23/50 Custodial Goal (LTG) Pt will present with improved NDI score to reflect no more than 25% impairment to improve quality of life. LTG Duration 8 weeks 2 Impairment Falls and imbalance Physical Therapist Technician Goal (LTG) Pt will perform WNLs on standardized balance test with LRAD such as Tinetti to decresae fall risk. LTG Duration 8 weeks 1 Impairment Ongoing falls and injury Physical Therapist Technician Goal (LTG) Pt will deny falls for one month or more to decrease injury risk. LTG Duration 8 weeks Assessment Summary Assessment Pt is a 78 y/o presenting with cervicogenic headache and neck pain and symptoms do increase with active extension in standing today. Pt is very imbalanced and slides finger along the wall entering the PT gym and she reports ongoing falls with 2-3 falls in 2023 and recent fall and striking left shoulder and face. Pt has not been using AD in the house or when out to appointments and PT ed pt that PT may be very helpful with exercise and manual interventions but it will not matter if she con't to fall and hurt herself. Pt is receptive to this education. She is orthostatic on assessment today and she states that her PCP, Dr. Gerber, and she are monitoring her BP as her BP medications have had some changes. Will send a copy of this evaluation to him as well so he can see the numbers. Pt has postural changes, UE paresthesias and weakness and limited cervical ROM and she will benefit from PT to improve myofascial changes, posture, and to work on strengthening, flexibility, balance and manual interventions. PT did review cervical MRI findings today. Pt is also on a blood thinner and so falls are a major concern for PT. Physical Therapy Plan Frequency and Duration Frequency of Treatment 2x/Week Duration of treatment (weeks) 8 Plan of Care Start Date 07/16/23 Plan of Care End Date 09/16/23 Therapeutic Interventions Therapeutic Interventions Balance Training,Canalithic Repositioning,Coordination Training,Gait Training,Home Exercise Program,Joint Mobilizations,Manual Therapy, Neuromuscular Re-education, Patient/Caregiver Education, Self-Care/Home Management,Soft Tissue Mobilization,Taping, Therapeutic Activities, Therapeutic Exercises, Vestibular Rehabilitation Modalities Cold Pack/Ice Massage,Hot Packs,Iontophoresis,Ultrasound Next Visit Focus/Plan Next Note Type Treatment Note Next Visit Plan Initiate manual work and exercise
--- NOTE | 2023-07-16 12:44 | PT.OPPOC ---
Physical, Occupational & Speech Therapy At [facility] Current Diagnoses Cervicogenic headache (07/16/23) Visit Care Team Role Provider Type Zaki Gerber DO Family Provider Physician Primary Care Provider Specialty: Family Practice Address: [address] [place] [address], [id number] Email: [email or web address] Maricel Jones PA-C Attending Provider Non-Staff Referring Provider Specialty: Medical Address: [address] [place] [address], [id number] Email: Plan Of Care PT-OP-T Assessment and Plan Start: 07/14/23 08:49 Freq: Status: Active Protocol: Document 07/16/23 11:20 MB (Rec: 07/16/23 12:42 MB [id number]) Physical Therapy Assessment Rehab Potential Rehabilitation Potential Fair Evaluation Complexity Number of Personal Factors/Comorbidities 1-2 Number of Body Systems Impaired 3 Clinical Presentation at Evaluation Evolving Impairments Impairments Activity Tolerance,Balance, Functional Activities, Functional Mobility,Gait,Pain, Posture,ROM,Sensation,Soft Tissue Mobility,Strength, Transfers,Vestibular Other Concerns Fall Risk High fall risk Goals 4 Impairment Lack of postural, cervical and balance HEP Airplane Gastank Liner Assembler Goal (LTG) Pt will perform progressive HEP including postural exercises, pelvic realignment exercises, core, intrascapular and LE strengthening and balance exercises with I to improve pain, balance and quality of life. LTG Duration 8 weeks 3 Impairment NDI score 23/50 Care Home Goal (LTG) Pt will present with improved NDI score to reflect no more than 25% impairment to improve quality of life. LTG Duration 8 weeks 2 Impairment Falls and imbalance Care Home Goal (LTG) Pt will perform WNLs on standardized balance test with LRAD such as Tinetti to decresae fall risk. LTG Duration 8 weeks 1 Impairment Ongoing falls and injury Airplane Gastank Liner Assembler Goal (LTG) Pt will deny falls for one month or more to decrease injury risk. LTG Duration 8 weeks Assessment Summary Assessment Pt is a 78 y/o presenting with cervicogenic headache and neck pain and symptoms do increase with active extension in standing today. Pt is very imbalanced and slides finger along the wall entering the PT gym and she reports ongoing falls with 2-3 falls in 2023 and recent fall and striking left shoulder and face. Pt has not been using AD in the house or when out to appointments and PT ed pt that PT may be very helpful with exercise and manual interventions but it will not matter if she con't to fall and hurt herself. Pt is receptive to this education. She is orthostatic on assessment today and she states that her PCP, Dr. Gerber, and she are monitoring her BP as her BP medications have had some changes. Will send a copy of this evaluation to him as well so he can see the numbers. Pt has postural changes, UE paresthesias and weakness and limited cervical ROM and she will benefit from PT to improve myofascial changes, posture, and to work on strengthening, flexibility, balance and manual interventions. PT did review cervical MRI findings today. Pt is also on a blood thinner and so falls are a major concern for PT. Physical Therapy Plan Frequency and Duration Frequency of Treatment 2x/Week Duration of treatment (weeks) 8 Plan of Care Start Date 07/16/23 Plan of Care End Date 09/16/23 Therapeutic Interventions Therapeutic Interventions Balance Training,Canalithic Repositioning,Coordination Training,Gait Training,Home Exercise Program,Joint Mobilizations,Manual Therapy, Neuromuscular Re-education, Patient/Caregiver Education, Self-Care/Home Management,Soft Tissue Mobilization,Taping, Therapeutic Activities, Therapeutic Exercises, Vestibular Rehabilitation Modalities Cold Pack/Ice Massage,Hot Packs,Iontophoresis,Ultrasound Next Visit Focus/Plan Next Note Type Treatment Note Next Visit Plan Initiate manual work and exercise Plan of Care Dates Plan of Care Start Date 07/16/23 Plan of Care End Date 09/16/23 Electronically Signed by: Carley Lara PT 07/16/23 1768 If you are in agreement with this Plan of Care, please return a signed and dated copy. I have reviewed this Plan of Care and certify that the skilled therapy services above are required to meet the patient?s needs. Physician Signature Date Printed Name and Credentials Clinical Instructor Signature Printed Name and Credentials
--- NOTE | 2023-07-17 11:58 | PT.OTN ---
Current Diagnoses Cervicogenic headache (07/17/23) Physical Therapy Treatment Note PT-OP-A Visit Information Start: 07/14/23 08:49 Freq: Status: Active Protocol: Document 07/17/23 11:18 MB (Rec: 07/17/23 11:56 MB [id number]) Out-Patient Physical Therapy Visit Information Visit Information Visit Type Treatment Note Visit Note Medicare 05/27 before KX Visit Start Time 11:18 Visit Stop Time 11:58 Visit Number 2 Number of PERMASTONE INSTALLER Visits 0 PT-OP-B Current Condition Start: 07/14/23 08:49 Freq: Status: Active Protocol: Document 07/16/23 11:20 MB (Rec: 07/16/23 11:43 MB [id number]) Current Condition History of Current Condition Onset Date 6 years ago Current Complaints Head and neck pain History of Current Condition Pt had a right hip fracture after tripping over her cat and had a surgical repair a year and a half ago. Pt is imbalanced with gait and runs hand along the wall with gait. Pt had a fall 3 weeks ago and she tripped on the raised side walk walking into the dentist and landed on both knees and hit right palm, left shoulder and left cheek. Every time she has a fall, her neck and headache pain gets worse. She is on blood thinners and has had B carotid endarterectomies per her report. She had another fall in May in the house and she landed flat on her back and whacked her head. Pt has a four wheeled walker SBQC. She lives at home alone. She has a life alert bracelet that is in her pocket. Pt denies light-headedness when getting up in the morning . She does sit for a while before standing up. Dr. Gerber is her PCP and they are monitoring her BP. Her BP medication was changed from Lisinopril to HCTZ and Losartan and her headaches are not better and she has some concern about this. Pt has scoliosis and two herniated discs in her LB. Pt sleeps on her stomach or side. She reports needing surgery at left elbow for lateral forearm pain and tunnel issues and that she needs carpal tunnel surgery on the right. She has left thumb arthritis. Prior Treatments and Tests MRI brain 07/05/23: negative MRI cervical spine 07/05/23: 1. Progressive findings at C5- C6. Significant interval increase in a central posterior disc protrusion indenting on the ventral cord. There is now moderate to severe canal stenosis. 2. Canal stenosis is mild at C4-C5 borderline at C6-C7. 3. Multilevel foraminal narrowing as described above. Findings include moderate to severe right foraminal narrowing at C5-C6. Treatment Goals Patient/Caregiver Goals Decrease neck pain and headaches PT-OP-C Subjective Start: 07/14/23 08:49 Freq: Status: Active Protocol: Document 07/17/23 11:18 MB (Rec: 07/17/23 11:56 MB [id number]) OP-PT Subjective Patient Comments Patient Comments Pt wears sunglasses into treatment and she has cane with her. She heard from neurology office and she is referred to neurosurgeon about her cervical spine findings. PT-OP-J Posture/Palpation/Skin Start: 07/14/23 08:49 Freq: Status: Active Protocol: Document 07/16/23 11:20 MB (Rec: 07/16/23 12:42 MB [id number]) Posture Evaluation Comments Posture Comments Standing posture: Forward head , rounded shoulders, increased thoracic kyphosis with left sided convexity and right iliac crest higher than the left, left shoulder mildly higher and more forward than the right. PT-OP-K Range of Motion Start: 07/14/23 08:49 Freq: Status: Active Protocol: Document 07/16/23 11:20 MB (Rec: 07/16/23 12:42 MB [id number]) Cervical Spine Range of Motion Cervical Spine Active Testing Position Standing Flexion 40 Extension 35 Rotation Left 50 Rotation Right 50 Lateral Flexion Left 10 Lateral Flexion Right 15 PT-OP-M Strength Start: 07/16/23 12:42 Freq: Status: Active Protocol: Document 07/16/23 11:20 MB (Rec: 07/16/23 12:43 MB [id number]) Shoulder Strength Shoulder Manual Muscle Testing Bilateral Flexion 5 Normal Abduction (C5) 5 Normal Elbow/Forearm Strength Elbow and Forearm Manual Muscle Testing Left Flexion (C6) 4+ Good+ Extension (C7) 4+ Good+ Pronation 4- Good- Supination 3- Fair- Right Flexion (C6) 5 Normal Extension (C7) 5 Normal Pronation 4+ Good+ Supination 3+ Fair+ PT-OP-Q Treatments Start: 07/14/23 08:49 Freq: Status: Active Protocol: Document 07/17/23 11:18 MB (Rec: 07/17/23 11:56 MB [id number]) Gait Training Gait Activity Gait with SPC and 4WRW Comments Gait with 4WRW looks great and pt's posture including shoulders and neck are relaxed and her balance is satisfactory Manual Therapy Treatment Other Other Manual Treatments Pt hook lying with head and neck supported on pillow, towel over eyes and legs on plinth: increased tension in thoracic and cervical spine and PA mobs cervical spine grade II-III, STM and positional release cervical paraspinals, right scalenes, B upper traps and levator, left first rib isometric, suboccipital release Neuro Re-Education Treatment Other Activities Diaphragm breathing Comments Performed today in hook lying and with hands on stomach before and during manual work to improve nervous system response and pt performs well PT-OP-T Assessment and Plan Start: 07/14/23 08:49 Freq: Status: Active Protocol: Document 07/17/23 11:18 MB (Rec: 07/17/23 11:56 MB [id number]) Physical Therapy Assessment Rehab Potential Rehabilitation Potential Fair Evaluation Complexity Number of Personal Factors/Comorbidities 1-2 Number of Body Systems Impaired 3 Clinical Presentation at Evaluation Evolving Impairments Impairments Activity Tolerance,Balance, Functional Activities, Functional Mobility,Gait,Pain, Posture,ROM,Sensation,Soft Tissue Mobility,Strength, Transfers,Vestibular Other Concerns Fall Risk High fall risk Goals 4 Impairment Lack of postural, cervical and balance HEP Diversity Manager Goal (LTG) Pt will perform progressive HEP including postural exercises, pelvic realignment exercises, core, intrascapular and LE strengthening and balance exercises with I to improve pain, balance and quality of life. LTG Duration 8 weeks 3 Impairment NDI score 23/50 Residential Goal (LTG) Pt will present with improved NDI score to reflect no more than 25% impairment to improve quality of life. LTG Duration 8 weeks 2 Impairment Falls and imbalance Diversity Manager Goal (LTG) Pt will perform WNLs on standardized balance test with LRAD such as Tinetti to decresae fall risk. LTG Duration 8 weeks 1 Impairment Ongoing falls and injury Residential Goal (LTG) Pt will deny falls for one month or more to decrease injury risk. LTG Duration 8 weeks Assessment Summary Assessment Pt is anxious today about needing to see neurosurgeon about her cervical MRI findings. KAY pain is 8/10 before treatment and 6-7/10 after manual treatment. Initiated diaphragm work today . Physical Therapy Plan Frequency and Duration Frequency of Treatment 2x/Week Duration of treatment (weeks) 8 Plan of Care Start Date 07/16/23 Plan of Care End Date 09/16/23 Therapeutic Interventions Therapeutic Interventions Balance Training,Canalithic Repositioning,Coordination Training,Gait Training,Home Exercise Program,Joint Mobilizations,Manual Therapy, Neuromuscular Re-education, Patient/Caregiver Education, Self-Care/Home Management,Soft Tissue Mobilization,Taping, Therapeutic Activities, Therapeutic Exercises, Vestibular Rehabilitation Modalities Cold Pack/Ice Massage,Hot Packs,Iontophoresis,Ultrasound Next Visit Focus/Plan Next Note Type Treatment Note Next Visit Plan Con't diaphragm breathing and consider Buteyko breathing, gentle flexibility of neck and thoracic spine, ongoing manual work, gentle progression, eventually balance training
--- NOTE | 2023-07-23 12:03 | PT.OTN ---
Current Diagnoses Cervicogenic headache (07/23/23) Physical Therapy Treatment Note PT-OP-A Visit Information Start: 07/14/23 08:49 Freq: Status: Active Protocol: Document 07/23/23 11:20 MB (Rec: 07/23/23 12:03 MB [id number]) Out-Patient Physical Therapy Visit Information Visit Information Visit Type Treatment Note Visit Note Medicare 06/24 before KX Visit Start Time 11:20 Visit Stop Time 12:00 Visit Number 3 Number of MOVIE CRITIC Visits 0 Precautions Precautions Pt has been orthostatic with PT, reaction to icntia bandage wrapping in the past, note, pt will be seeing neurosurgeon for her neck d/t cervical changes found PT-OP-B Current Condition Start: 07/14/23 08:49 Freq: Status: Active Protocol: Document 07/16/23 11:20 MB (Rec: 07/16/23 11:43 MB [id number]) Current Condition History of Current Condition Onset Date 6 years ago Current Complaints Head and neck pain History of Current Condition Pt had a right hip fracture after tripping over her cat and had a surgical repair a year and a half ago. Pt is imbalanced with gait and runs hand along the wall with gait. Pt had a fall 3 weeks ago and she tripped on the raised side walk walking into the dentist and landed on both knees and hit right palm, left shoulder and left cheek. Every time she has a fall, her neck and headache pain gets worse. She is on blood thinners and has had B carotid endarterectomies per her report. She had another fall in May in the house and she landed flat on her back and whacked her head. Pt has a four wheeled walker SBQC. She lives at home alone. She has a life alert bracelet that is in her pocket. Pt denies light-headedness when getting up in the morning . She does sit for a while before standing up. Dr. Gerber is her PCP and they are monitoring her BP. Her BP medication was changed from Lisinopril to HCTZ and Losartan and her headaches are not better and she has some concern about this. Pt has scoliosis and two herniated discs in her LB. Pt sleeps on her stomach or side. She reports needing surgery at left elbow for lateral forearm pain and tunnel issues and that she needs carpal tunnel surgery on the right. She has left thumb arthritis. Prior Treatments and Tests MRI brain 07/05/23: negative MRI cervical spine 07/05/23: 1. Progressive findings at C5- C6. Significant interval increase in a central posterior disc protrusion indenting on the ventral cord. There is now moderate to severe canal stenosis. 2. Canal stenosis is mild at C4-C5 borderline at C6-C7. 3. Multilevel foraminal narrowing as described above. Findings include moderate to severe right foraminal narrowing at C5-C6. Treatment Goals Patient/Caregiver Goals Decrease neck pain and headaches PT-OP-C Subjective Start: 07/14/23 08:49 Freq: Status: Active Protocol: Document 07/23/23 11:20 MB (Rec: 07/23/23 12:03 MB [id number]) OP-PT Subjective Patient Comments Patient Comments Pt got an appointment with the neurosurgeon August 06. When she walked in, her standard headache was at 2/10 and when she started coughing, it is about 5-6/10. PT-OP-J Posture/Palpation/Skin Start: 07/14/23 08:49 Freq: Status: Active Protocol: Document 07/16/23 11:20 MB (Rec: 07/16/23 12:42 MB [id number]) Posture Evaluation Comments Posture Comments Standing posture: Forward head , rounded shoulders, increased thoracic kyphosis with left sided convexity and right iliac crest higher than the left, left shoulder mildly higher and more forward than the right. PT-OP-K Range of Motion Start: 07/14/23 08:49 Freq: Status: Active Protocol: Document 07/16/23 11:20 MB (Rec: 07/16/23 12:42 MB [id number]) Cervical Spine Range of Motion Cervical Spine Active Testing Position Standing Flexion 40 Extension 35 Rotation Left 50 Rotation Right 50 Lateral Flexion Left 10 Lateral Flexion Right 15 PT-OP-M Strength Start: 07/16/23 12:42 Freq: Status: Active Protocol: Document 07/16/23 11:20 MB (Rec: 07/16/23 12:43 MB [id number]) Shoulder Strength Shoulder Manual Muscle Testing Bilateral Flexion 5 Normal Abduction (C5) 5 Normal Elbow/Forearm Strength Elbow and Forearm Manual Muscle Testing Left Flexion (C6) 4+ Good+ Extension (C7) 4+ Good+ Pronation 4- Good- Supination 3- Fair- Right Flexion (C6) 5 Normal Extension (C7) 5 Normal Pronation 4+ Good+ Supination 3+ Fair+ PT-OP-Q Treatments Start: 07/14/23 08:49 Freq: Status: Active Protocol: Document 07/23/23 11:20 MB (Rec: 07/23/23 12:03 MB [id number]) Therapeutic Exercises Sidelying Exercises Open book Side bilateral Reps/Minutes 5 Comments Cues to slow down and to hold a few Standing Exercises Thoracic mobility with larger ball Equipment Used Blue ball Comments Thoracic mobility against the wall Gait Training Gait Activity Gait with SPC Comments Pt has foldable straight cane with a wider base and PT raises it one and she is able to relax her right arm more and does not press through cane as much and posture, stepping and gait is better. Multiple gait trials during treatment Manual Therapy Treatment Other Other Manual Treatments Pt hook lying with head and neck supported on pillow and legs on plinth: increased tension in thoracic and cervical spine and PA mobs cervical spine grade II-III, STM and positional release cervical paraspinals, B upper traps and levator, B first rib isometric Neuro Re-Education Treatment Other Activities Diaphragm breathing Comments Re-ed today with nasal breathing in hook lyinga nd provided handout PT-OP-T Assessment and Plan Start: 07/14/23 08:49 Freq: Status: Active Protocol: Document 07/23/23 11:20 MB (Rec: 07/23/23 12:03 MB [id number]) Physical Therapy Assessment Rehab Potential Rehabilitation Potential Fair Evaluation Complexity Number of Personal Factors/Comorbidities 1-2 Number of Body Systems Impaired 3 Clinical Presentation at Evaluation Evolving Impairments Impairments Activity Tolerance,Balance, Functional Activities, Functional Mobility,Gait,Pain, Posture,ROM,Sensation,Soft Tissue Mobility,Strength, Transfers,Vestibular Other Concerns Fall Risk High fall risk Goals 4 Impairment Lack of postural, cervical and balance HEP Halfway Goal (LTG) Pt will perform progressive HEP including postural exercises, pelvic realignment exercises, core, intrascapular and LE strengthening and balance exercises with I to improve pain, balance and quality of life. LTG Duration 8 weeks 3 Impairment NDI score 23/50 Utility Aircrewman Goal (LTG) Pt will present with improved NDI score to reflect no more than 25% impairment to improve quality of life. LTG Duration 8 weeks 2 Impairment Falls and imbalance Halfway Goal (LTG) Pt will perform WNLs on standardized balance test with LRAD such as Tinetti to decresae fall risk. LTG Duration 8 weeks 1 Impairment Ongoing falls and injury Utility Aircrewman Goal (LTG) Pt will deny falls for one month or more to decrease injury risk. LTG Duration 8 weeks Assessment Summary Assessment Gait is better with cane raised and pt with ongoing neck and thoracic tension and initiated exercises today for mobility. Physical Therapy Plan Frequency and Duration Frequency of Treatment 2x/Week Duration of treatment (weeks) 8 Plan of Care Start Date 07/16/23 Plan of Care End Date 09/16/23 Therapeutic Interventions Therapeutic Interventions Balance Training,Canalithic Repositioning,Coordination Training,Gait Training,Home Exercise Program,Joint Mobilizations,Manual Therapy, Neuromuscular Re-education, Patient/Caregiver Education, Self-Care/Home Management,Soft Tissue Mobilization,Taping, Therapeutic Activities, Therapeutic Exercises, Vestibular Rehabilitation Modalities Cold Pack/Ice Massage,Hot Packs,Iontophoresis,Ultrasound Next Visit Focus/Plan Next Note Type Treatment Note Next Visit Plan With primary PT next time, initiate Buteyko breathing. Otherwise, gentle flexibility of neck and thoracic spine, ongoing manual work, gentle progression, eventually balance training
--- NOTE | 2023-07-25 11:59 | PT.OTN ---
Current Diagnoses Cervicogenic headache (07/25/23) Physical Therapy Treatment Note PT-OP-A Visit Information Start: 07/14/23 08:49 Freq: Status: Active Protocol: Document 07/25/23 11:19 SP (Rec: 07/25/23 12:24 SP [id number]) Out-Patient Physical Therapy Visit Information Visit Information Visit Type Treatment Note Visit Note Medicare 06/24 before KX Visit Start Time 11:19 Visit Stop Time 11:59 Visit Number 4 Number of CAD ADMINISTRATOR Visits 1 Evaluation Information Evaluation Date 07/16/23 Precautions Precautions Pt has been orthostatic with PT, reaction to cintia bandage wrapping in the past, note, pt will be seeing neurosurgeon for her neck d/t cervical changes found PT-OP-B Current Condition Start: 07/14/23 08:49 Freq: Status: Active Protocol: Document 07/16/23 11:20 MB (Rec: 07/16/23 11:43 MB [id number]) Current Condition History of Current Condition Onset Date 6 years ago Current Complaints Head and neck pain History of Current Condition Pt had a right hip fracture after tripping over her cat and had a surgical repair a year and a half ago. Pt is imbalanced with gait and runs hand along the wall with gait. Pt had a fall 3 weeks ago and she tripped on the raised side walk walking into the dentist and landed on both knees and hit right palm, left shoulder and left cheek. Every time she has a fall, her neck and headache pain gets worse. She is on blood thinners and has had B carotid endarterectomies per her report. She had another fall in May in the house and she landed flat on her back and whacked her head. Pt has a four wheeled walker [employer]. She lives at home alone. She has a life alert bracelet that is in her pocket. Pt denies light-headedness when getting up in the morning . She does sit for a while before standing up. Dr. Gerber is her PCP and they are monitoring her BP. Her BP medication was changed from Lisinopril to HCTZ and Losartan and her headaches are not better and she has some concern about this. Pt has scoliosis and two herniated discs in her LB. Pt sleeps on her stomach or side. She reports needing surgery at left elbow for lateral forearm pain and tunnel issues and that she needs carpal tunnel surgery on the right. She has left thumb arthritis. Prior Treatments and Tests MRI brain 07/05/23: negative MRI cervical spine 07/05/23: 1. Progressive findings at C5- C6. Significant interval increase in a central posterior disc protrusion indenting on the ventral cord. There is now moderate to severe canal stenosis. 2. Canal stenosis is mild at C4-C5 borderline at C6-C7. 3. Multilevel foraminal narrowing as described above. Findings include moderate to severe right foraminal narrowing at C5-C6. Treatment Goals Patient/Caregiver Goals Decrease neck pain and headaches PT-OP-C Subjective Start: 07/14/23 08:49 Freq: Status: Active Protocol: Document 07/25/23 11:19 SP (Rec: 07/25/23 12:24 SP [id number]) OP-PT Subjective Patient Comments Patient Comments Pt reports neck felt better after manual last tx. She stated 06/15 headache arrival. Adjustment in hurry cane last tx for support but less WB. PT-OP-J Posture/Palpation/Skin Start: 07/14/23 08:49 Freq: Status: Active Protocol: Document 07/16/23 11:20 MB (Rec: 07/16/23 12:42 MB [id number]) Posture Evaluation Comments Posture Comments Standing posture: Forward head , rounded shoulders, increased thoracic kyphosis with left sided convexity and right iliac crest higher than the left, left shoulder mildly higher and more forward than the right. PT-OP-K Range of Motion Start: 07/14/23 08:49 Freq: Status: Active Protocol: Document 07/16/23 11:20 MB (Rec: 07/16/23 12:42 MB [id number]) Cervical Spine Range of Motion Cervical Spine Active Testing Position Standing Flexion 40 Extension 35 Rotation Left 50 Rotation Right 50 Lateral Flexion Left 10 Lateral Flexion Right 15 PT-OP-M Strength Start: 07/16/23 12:42 Freq: Status: Active Protocol: Document 07/16/23 11:20 MB (Rec: 07/16/23 12:43 MB [id number]) Shoulder Strength Shoulder Manual Muscle Testing Bilateral Flexion 5 Normal Abduction (C5) 5 Normal Elbow/Forearm Strength Elbow and Forearm Manual Muscle Testing Left Flexion (C6) 4+ Good+ Extension (C7) 4+ Good+ Pronation 4- Good- Supination 3- Fair- Right Flexion (C6) 5 Normal Extension (C7) 5 Normal Pronation 4+ Good+ Supination 3+ Fair+ PT-OP-Q Treatments Start: 07/14/23 08:49 Freq: Status: Active Protocol: Document 07/25/23 11:19 SP (Rec: 07/25/23 12:24 SP [id number]) Therapeutic Exercises Sidelying Exercises Open book Side bilateral Reps/Minutes 5 Comments Cues to slow down and to hold last 2 breathes Standing Exercises Thoracic mobility with larger ball Standing Exercise Name 1. TS rolling over ball sup/ inf/lat 2. arms at side ER scap roll back Equipment Used basketball Reps/Minutes TS mobility Comments good feedback response improved TS and scap ROM Gait Training Gait Activity Gait with SPC Device Used Realtime Games cane Distance/Duration 170 ft Treatment Focus midline stability, 2pt sequencing Comments Improved SPC patterning advancement /c LLE and midline stab with occ cues for elongated posture/rhomboid fac /light WB into RUE on SPC. Manual Therapy Treatment Soft Tissue Mobilization [employer] Body Location frontal, sphenoid decompression, ear pull, gentle edge eye sockets Mobilization Type Sustained Pressure Body Position Hooklying Comments gentle, light touch, decompression emphasis- decreased tension support over temples, face Other Other Manual Treatments Pt hook lying with head and neck supported on pillow and legs on wedge: SOR, MFR to cervical paraspinals, B upper traps and levator, PROM rotation allowable fluid ROM Neuro Re-Education Treatment Balance Activities balance Details NBOS, stagger stance, tandem Comments NBOS, stagger: head turns: horizontal/vertical Tandem: stationary -cued tall, rhomboid, WB equal BLE heel/1 & 5th MTP, improved stab. PT-OP-T Assessment and Plan Start: 07/14/23 08:49 Freq: Status: Active Protocol: Document 07/25/23 11:19 SP (Rec: 07/25/23 12:24 SP [id number]) Physical Therapy Assessment Goals 4 Impairment Lack of postural, cervical and balance HEP Diaphragm Builder Goal (LTG) Pt will perform progressive HEP including postural exercises, pelvic realignment exercises, core, intrascapular and LE strengthening and balance exercises with I to improve pain, balance and quality of life. LTG Duration 8 weeks 3 Impairment NDI score 23/50 Diaphragm Builder Goal (LTG) Pt will present with improved NDI score to reflect no more than 25% impairment to improve quality of life. LTG Duration 8 weeks 2 Impairment Falls and imbalance Fdc Goal (LTG) Pt will perform WNLs on standardized balance test with LRAD such as Tinetti to decresae fall risk. LTG Duration 8 weeks 1 Impairment Ongoing falls and injury Diaphragm Builder Goal (LTG) Pt will deny falls for one month or more to decrease injury risk. LTG Duration 8 weeks Assessment Summary Assessment Pt improved CS, TS and scapular ROM post manual and HEP review, reports basketball most effective. CUes for scap /core/ KANDY over full B feet improved stability stationary trials and carryover more consistant 2 pt gait adn feel more stable. Physical Therapy Plan Frequency and Duration Frequency of Treatment 2x/Week Duration of treatment (weeks) 8 Plan of Care Start Date 07/16/23 Plan of Care End Date 09/16/23 Therapeutic Interventions Therapeutic Interventions Balance Training,Canalithic Repositioning,Coordination Training,Gait Training,Home Exercise Program,Joint Mobilizations,Manual Therapy, Neuromuscular Re-education, Patient/Caregiver Education, Self-Care/Home Management,Soft Tissue Mobilization,Taping, Therapeutic Activities, Therapeutic Exercises, Vestibular Rehabilitation Modalities Cold Pack/Ice Massage,Hot Packs,Iontophoresis,Ultrasound Next Visit Focus/Plan Next Note Type Treatment Note Next Visit Plan Assess response to trial stationary bal in PT manny. POC: With primary PT next time , initiate Buteyko breathing. Otherwise, gentle flexibility of neck and thoracic spine, ongoing manual work, gentle progression, eventually balance training
--- NOTE | 2023-08-13 10:30 | PT.OTN ---
Current Diagnoses Cervicogenic headache (08/13/23) Physical Therapy Treatment Note PT-OP-A Visit Information Start: 07/14/23 08:49 Freq: Status: Active Protocol: Document 08/13/23 09:49 MB (Rec: 08/13/23 10:26 MB [id number]) Out-Patient Physical Therapy Visit Information Visit Information Visit Type Treatment Note Visit Note Medicare 07/25 before KX Visit Start Time 09:49 Visit Stop Time 10:29 Visit Number 5 Number of SIGN PAINTER APPRENTICE Visits 0 PT-OP-B Current Condition Start: 07/14/23 08:49 Freq: Status: Active Protocol: Document 07/16/23 11:20 MB (Rec: 07/16/23 11:43 MB [id number]) Current Condition History of Current Condition Onset Date 6 years ago Current Complaints Head and neck pain History of Current Condition Pt had a right hip fracture after tripping over her cat and had a surgical repair a year and a half ago. Pt is imbalanced with gait and runs hand along the wall with gait. Pt had a fall 3 weeks ago and she tripped on the raised side walk walking into the dentist and landed on both knees and hit right palm, left shoulder and left cheek. Every time she has a fall, her neck and headache pain gets worse. She is on blood thinners and has had B carotid endarterectomies per her report. She had another fall in May in the house and she landed flat on her back and whacked her head. Pt has a four wheeled walker SBQC. She lives at home alone. She has a life alert bracelet that is in her pocket. Pt denies light-headedness when getting up in the morning . She does sit for a while before standing up. Dr. Gerber is her PCP and they are monitoring her BP. Her BP medication was changed from Lisinopril to HCTZ and Losartan and her headaches are not better and she has some concern about this. Pt has scoliosis and two herniated discs in her LB. Pt sleeps on her stomach or side. She reports needing surgery at left elbow for lateral forearm pain and tunnel issues and that she needs carpal tunnel surgery on the right. She has left thumb arthritis. Prior Treatments and Tests MRI brain 07/05/23: negative MRI cervical spine 07/05/23: 1. Progressive findings at C5- C6. Significant interval increase in a central posterior disc protrusion indenting on the ventral cord. There is now moderate to severe canal stenosis. 2. Canal stenosis is mild at C4-C5 borderline at C6-C7. 3. Multilevel foraminal narrowing as described above. Findings include moderate to severe right foraminal narrowing at C5-C6. Treatment Goals Patient/Caregiver Goals Decrease neck pain and headaches PT-OP-C Subjective Start: 07/14/23 08:49 Freq: Status: Active Protocol: Document 08/13/23 09:49 MB (Rec: 08/13/23 10:26 MB [id number]) OP-PT Subjective Patient Comments Patient Comments Pt saw neurologist and neurosurgeon. Neurosurgeon said that she does not have surgical issue and she went back to neurologist and was told she has migraines and she was given a new migraine medicine which she has started taking and she did not wake up with a KAY this morning. PT-OP-J Posture/Palpation/Skin Start: 07/14/23 08:49 Freq: Status: Active Protocol: Document 07/16/23 11:20 MB (Rec: 07/16/23 12:42 MB [id number]) Posture Evaluation Comments Posture Comments Standing posture: Forward head , rounded shoulders, increased thoracic kyphosis with left sided convexity and right iliac crest higher than the left, left shoulder mildly higher and more forward than the right. PT-OP-K Range of Motion Start: 07/14/23 08:49 Freq: Status: Active Protocol: Document 07/16/23 11:20 MB (Rec: 07/16/23 12:42 MB [id number]) Cervical Spine Range of Motion Cervical Spine Active Testing Position Standing Flexion 40 Extension 35 Rotation Left 50 Rotation Right 50 Lateral Flexion Left 10 Lateral Flexion Right 15 PT-OP-M Strength Start: 07/16/23 12:42 Freq: Status: Active Protocol: Document 07/16/23 11:20 MB (Rec: 07/16/23 12:43 MB [id number]) Shoulder Strength Shoulder Manual Muscle Testing Bilateral Flexion 5 Normal Abduction (C5) 5 Normal Elbow/Forearm Strength Elbow and Forearm Manual Muscle Testing Left Flexion (C6) 4+ Good+ Extension (C7) 4+ Good+ Pronation 4- Good- Supination 3- Fair- Right Flexion (C6) 5 Normal Extension (C7) 5 Normal Pronation 4+ Good+ Supination 3+ Fair+ PT-OP-Q Treatments Start: 07/14/23 08:49 Freq: Status: Active Protocol: Document 08/13/23 09:49 MB (Rec: 08/13/23 10:26 MB [id number]) Therapeutic Exercises Supine Exercises Scapular retraction Comments 10 reps, head and neck supported Pect stretch Comments Head and neck supported, hold 30 sec and 2 reps AROM cervical spine Supine Exercise Name Ed over pressure on sternum for rotation stretches Equipment Used Pillow under head, cervical towel roll, legs up Comments 10 reps rotation each side, end-range stretch Sidelying Exercises Open book Comments Verbally reviewed today Manual Therapy Treatment Other Other Manual Treatments Pt hook lying with head and neck supported on pillow and legs on wedge: increased tension in thoracic and cervical spine and PA mobs cervical spine grade II-III, STM and positional release cervical paraspinals, B upper traps and levator, B first rib isometric, SCM STM Neuro Re-Education Treatment Other Activities Diaphragm breathing Comments Nasal breathing with diaphragm engagement and book on stomach today. PT-OP-T Assessment and Plan Start: 07/14/23 08:49 Freq: Status: Active Protocol: Document 08/13/23 09:49 MB (Rec: 08/13/23 10:26 MB [id number]) Physical Therapy Assessment Rehab Potential Rehabilitation Potential Fair Evaluation Complexity Number of Personal Factors/Comorbidities 1-2 Number of Body Systems Impaired 3 Clinical Presentation at Evaluation Evolving Impairments Impairments Activity Tolerance,Balance, Functional Activities, Functional Mobility,Gait,Pain, Posture,ROM,Sensation,Soft Tissue Mobility,Strength, Transfers,Vestibular Other Concerns Fall Risk High fall risk Goals 4 Impairment Lack of postural, cervical and balance HEP [facility] Goal (LTG) Pt will perform progressive HEP including postural exercises, pelvic realignment exercises, core, intrascapular and LE strengthening and balance exercises with I to improve pain, balance and quality of life. LTG Duration 8 weeks 3 Impairment NDI score 23/50 [facility] Goal (LTG) Pt will present with improved NDI score to reflect no more than 25% impairment to improve quality of life. LTG Duration 8 weeks 2 Impairment Falls and imbalance Filling Layer Up Goal (LTG) Pt will perform WNLs on standardized balance test with LRAD such as Tinetti to decresae fall risk. LTG Duration 8 weeks 1 Impairment Ongoing falls and injury Filling Layer Up Goal (LTG) Pt will deny falls for one month or more to decrease injury risk. LTG Duration 8 weeks Assessment Summary Assessment PT has not seen pt in over two weeks and so Buteyko breathing not initiated today. Did initiate nasal breathing with diaphragm engagement as a start with manual work today. Left anterior neck sensitivity and pt reports since carotid endarterectomy and near scar. Pain is better after SCM work today. Physical Therapy Plan Frequency and Duration Frequency of Treatment 2x/Week Duration of treatment (weeks) 8 Plan of Care Start Date 07/16/23 Plan of Care End Date 09/16/23 Therapeutic Interventions Therapeutic Interventions Balance Training,Canalithic Repositioning,Coordination Training,Gait Training,Home Exercise Program,Joint Mobilizations,Manual Therapy, Neuromuscular Re-education, Patient/Caregiver Education, Self-Care/Home Management,Soft Tissue Mobilization,Taping, Therapeutic Activities, Therapeutic Exercises, Vestibular Rehabilitation Modalities Cold Pack/Ice Massage,Hot Packs,Iontophoresis,Ultrasound Next Visit Focus/Plan Next Note Type Treatment Note Next Visit Plan With primary PT, initiate Buteyko breathing. Otherwise, gentle flexibility of neck and thoracic spine, postural and core strengthening, ongoing manual work, gentle progression, eventually balance training. Consider strengthening in hook lying with head and neck supported or over pool noodle for intrascapular muscles, shoulders, etc.
--- NOTE | 2023-08-15 10:30 | PT.OTN ---
Current Diagnoses Cervicogenic headache (08/15/23) Physical Therapy Treatment Note PT-OP-A Visit Information Start: 07/14/23 08:49 Freq: Status: Active Protocol: Document 08/15/23 09:47 SP (Rec: 08/15/23 10:34 SP [id number]) Out-Patient Physical Therapy Visit Information Visit Information Visit Type Treatment Note Visit Note Medicare 08/24 before KX Visit Start Time 09:47 Visit Stop Time 10:30 Visit Number 6 Number of GUEST RELATIONS AGENT Visits 1 Evaluation Information Evaluation Date 07/16/23 Precautions Precautions Pt has been orthostatic with PT, reaction to cintia bandage wrapping in the past, note, pt will be seeing neurosurgeon for her neck d/t cervical changes found PT-OP-B Current Condition Start: 07/14/23 08:49 Freq: Status: Active Protocol: Document 07/16/23 11:20 MB (Rec: 07/16/23 11:43 MB [id number]) Current Condition History of Current Condition Onset Date 6 years ago Current Complaints Head and neck pain History of Current Condition Pt had a right hip fracture after tripping over her cat and had a surgical repair a year and a half ago. Pt is imbalanced with gait and runs hand along the wall with gait. Pt had a fall 3 weeks ago and she tripped on the raised side walk walking into the dentist and landed on both knees and hit right palm, left shoulder and left cheek. Every time she has a fall, her neck and headache pain gets worse. She is on blood thinners and has had B carotid endarterectomies per her report. She had another fall in May in the house and she landed flat on her back and whacked her head. Pt has a four wheeled walker SBQC. She lives at home alone. She has a life alert bracelet that is in her pocket. Pt denies light-headedness when getting up in the morning . She does sit for a while before standing up. Dr. Gerber is her PCP and they are monitoring her BP. Her BP medication was changed from Lisinopril to HCTZ and Losartan and her headaches are not better and she has some concern about this. Pt has scoliosis and two herniated discs in her LB. Pt sleeps on her stomach or side. She reports needing surgery at left elbow for lateral forearm pain and tunnel issues and that she needs carpal tunnel surgery on the right. She has left thumb arthritis. Prior Treatments and Tests MRI brain 07/05/23: negative MRI cervical spine 07/05/23: 1. Progressive findings at C5- C6. Significant interval increase in a central posterior disc protrusion indenting on the ventral cord. There is now moderate to severe canal stenosis. 2. Canal stenosis is mild at C4-C5 borderline at C6-C7. 3. Multilevel foraminal narrowing as described above. Findings include moderate to severe right foraminal narrowing at C5-C6. Treatment Goals Patient/Caregiver Goals Decrease neck pain and headaches PT-OP-C Subjective Start: 07/14/23 08:49 Freq: Status: Active Protocol: Document 08/15/23 09:47 SP (Rec: 08/15/23 10:34 SP [id number]) OP-PT Subjective Patient Comments Patient Comments She continues to wake up with relief of headache with tritrating medication for depression, now adding antianxiousity med. PT-OP-J Posture/Palpation/Skin Start: 07/14/23 08:49 Freq: Status: Active Protocol: Document 07/16/23 11:20 MB (Rec: 07/16/23 12:42 MB [id number]) Posture Evaluation Comments Posture Comments Standing posture: Forward head , rounded shoulders, increased thoracic kyphosis with left sided convexity and right iliac crest higher than the left, left shoulder mildly higher and more forward than the right. PT-OP-K Range of Motion Start: 07/14/23 08:49 Freq: Status: Active Protocol: Document 07/16/23 11:20 MB (Rec: 07/16/23 12:42 MB [id number]) Cervical Spine Range of Motion Cervical Spine Active Testing Position Standing Flexion 40 Extension 35 Rotation Left 50 Rotation Right 50 Lateral Flexion Left 10 Lateral Flexion Right 15 PT-OP-M Strength Start: 07/16/23 12:42 Freq: Status: Active Protocol: Document 07/16/23 11:20 MB (Rec: 07/16/23 12:43 MB [id number]) Shoulder Strength Shoulder Manual Muscle Testing Bilateral Flexion 5 Normal Abduction (C5) 5 Normal Elbow/Forearm Strength Elbow and Forearm Manual Muscle Testing Left Flexion (C6) 4+ Good+ Extension (C7) 4+ Good+ Pronation 4- Good- Supination 3- Fair- Right Flexion (C6) 5 Normal Extension (C7) 5 Normal Pronation 4+ Good+ Supination 3+ Fair+ PT-OP-Q Treatments Start: 07/14/23 08:49 Freq: Status: Active Protocol: Document 08/15/23 09:47 SP (Rec: 08/15/23 10:34 SP [id number]) Therapeutic Exercises Supine Exercises Scapular retraction Supine Exercise Name 1. shld abd 45 deg shld ER 2. FF Resistance hooklying Equipment Used over noodle, pillow under head Reps/Minutes 10 reps 3 SH each Comments slight adjustments slow pace allow spine along noodle, breath Pect stretch Supine Exercise Name hooklying Equipment Used over noodle, pillow under head Reps/Minutes hold 30 sec and 2 reps AROM cervical spine Equipment Used over noodle, pillow under head , knees bent Reps/Minutes 10 reps rotation each side, end-range stretch Comments good response ROM/stretch Sidelying Exercises Open book Sidelying Exercise Name HEP reviewed Side bilateral Reps/Minutes 10 Comments cued no UT/slower pace, good lateral sternum & into TFL stretch reported Standing Exercises wall posture Standing Exercise Name trialed in PT Side bilateral Equipment Used towel behind head/neck Reps/Minutes 5 reps each Comments spinal roll up wall, UEs anatomical position, FF & ABD Manual Therapy Treatment Other Other Manual Treatments Pt hook lying with head and neck supported on pillow and legs on wedge: increased tension in thoracic and cervical spine and PA mobs cervical spine grade II, STM cervical paraspinals, B upper traps, SCM, diagastric (R), B first rib isometric PT-OP-T Assessment and Plan Start: 07/14/23 08:49 Freq: Status: Active Protocol: Document 08/15/23 09:47 SP (Rec: 08/15/23 10:34 SP [id number]) Physical Therapy Assessment Goals 4 Impairment Lack of postural, cervical and balance HEP Station Captain Goal (LTG) Pt will perform progressive HEP including postural exercises, pelvic realignment exercises, core, intrascapular and LE strengthening and balance exercises with I to improve pain, balance and quality of life. LTG Duration 8 weeks 3 Impairment NDI score 23/50 Station Captain Goal (LTG) Pt will present with improved NDI score to reflect no more than 25% impairment to improve quality of life. LTG Duration 8 weeks 2 Impairment Falls and imbalance Station Captain Goal (LTG) Pt will perform WNLs on standardized balance test with LRAD such as Tinetti to decresae fall risk. LTG Duration 8 weeks 1 Impairment Ongoing falls and injury Senior Care Goal (LTG) Pt will deny falls for one month or more to decrease injury risk. LTG Duration 8 weeks Assessment Summary Assessment Pt responded well to manual with ability to turn head R>L and scapular ROM over noodle. Cues for scapular ROM with no UT recruitment ther ex but good lateral sternum and TFL stretch didn't realized has fascial recruitment. Physical Therapy Plan Frequency and Duration Frequency of Treatment 2x/Week Duration of treatment (weeks) 8 Plan of Care Start Date 07/16/23 Plan of Care End Date 09/16/23 Therapeutic Interventions Therapeutic Interventions Balance Training,Canalithic Repositioning,Coordination Training,Gait Training,Home Exercise Program,Joint Mobilizations,Manual Therapy, Neuromuscular Re-education, Patient/Caregiver Education, Self-Care/Home Management,Soft Tissue Mobilization,Taping, Therapeutic Activities, Therapeutic Exercises, Vestibular Rehabilitation Modalities Cold Pack/Ice Massage,Hot Packs,Iontophoresis,Ultrasound Next Visit Focus/Plan Next Note Type Treatment Note Next Visit Plan With primary PT, initiate Buteyko breathing. CHeck HEP over noodle if can progress use TB posterior chain support and pacing with open book. Otherwise, gentle flexibility of neck and thoracic spine, postural and core strengthening, ongoing manual work, gentle progression, eventually balance training. Consider strengthening in hook lying with head and neck supported or over pool noodle for intrascapular muscles, shoulders, etc.
--- NOTE | 2023-08-20 10:26 | PT.OTN ---
Current Diagnoses Cervicogenic headache (08/20/23) Physical Therapy Treatment Note PT-OP-A Visit Information Start: 07/14/23 08:49 Freq: Status: Active Protocol: Document 08/20/23 09:45 MB (Rec: 08/20/23 10:25 MB [id number]) Out-Patient Physical Therapy Visit Information Visit Information Visit Type Progress Note Visit Note Medicare 09/24 before KX Visit Start Time 09:45 Visit Stop Time 10:25 Visit Number 7 Number of SENIOR SHIPPING CLERK Visits 0 Precautions Precautions Pt has been orthostatic with PT, reaction to cintia bandage wrapping in the past PT-OP-B Current Condition Start: 07/14/23 08:49 Freq: Status: Active Protocol: Document 07/16/23 11:20 MB (Rec: 07/16/23 11:43 MB [id number]) Current Condition History of Current Condition Onset Date 6 years ago Current Complaints Head and neck pain History of Current Condition Pt had a right hip fracture after tripping over her cat and had a surgical repair a year and a half ago. Pt is imbalanced with gait and runs hand along the wall with gait. Pt had a fall 3 weeks ago and she tripped on the raised side walk walking into the dentist and landed on both knees and hit right palm, left shoulder and left cheek. Every time she has a fall, her neck and headache pain gets worse. She is on blood thinners and has had B carotid endarterectomies per her report. She had another fall in May in the house and she landed flat on her back and whacked her head. Pt has a four wheeled walker SB. She lives at home alone. She has a life alert bracelet that is in her pocket. Pt denies light-headedness when getting up in the morning . She does sit for a while before standing up. Dr. Gerber is her PCP and they are monitoring her BP. Her BP medication was changed from Lisinopril to HCTZ and Losartan and her headaches are not better and she has some concern about this. Pt has scoliosis and two herniated discs in her LB. Pt sleeps on her stomach or side. She reports needing surgery at left elbow for lateral forearm pain and tunnel issues and that she needs carpal tunnel surgery on the right. She has left thumb arthritis. Prior Treatments and Tests MRI brain 07/05/23: negative MRI cervical spine 07/05/23: 1. Progressive findings at C5- C6. Significant interval increase in a central posterior disc protrusion indenting on the ventral cord. There is now moderate to severe canal stenosis. 2. Canal stenosis is mild at C4-C5 borderline at C6-C7. 3. Multilevel foraminal narrowing as described above. Findings include moderate to severe right foraminal narrowing at C5-C6. Treatment Goals Patient/Caregiver Goals Decrease neck pain and headaches PT-OP-C Subjective Start: 07/14/23 08:49 Freq: Status: Active Protocol: Document 08/20/23 09:45 MB (Rec: 08/20/23 10:25 MB [id number]) OP-PT Subjective Patient Comments Patient Comments Pt states that the migraine medication is causing diarrhea . PT-OP-J Posture/Palpation/Skin Start: 07/14/23 08:49 Freq: Status: Active Protocol: Document 07/16/23 11:20 MB (Rec: 07/16/23 12:42 MB [id number]) Posture Evaluation Comments Posture Comments Standing posture: Forward head , rounded shoulders, increased thoracic kyphosis with left sided convexity and right iliac crest higher than the left, left shoulder mildly higher and more forward than the right. PT-OP-K Range of Motion Start: 07/14/23 08:49 Freq: Status: Active Protocol: Document 07/16/23 11:20 MB (Rec: 07/16/23 12:42 MB [id number]) Cervical Spine Range of Motion Cervical Spine Active Testing Position Standing Flexion 40 Extension 35 Rotation Left 50 Rotation Right 50 Lateral Flexion Left 10 Lateral Flexion Right 15 PT-OP-M Strength Start: 07/16/23 12:42 Freq: Status: Active Protocol: Document 07/16/23 11:20 MB (Rec: 07/16/23 12:43 MB [id number]) Shoulder Strength Shoulder Manual Muscle Testing Bilateral Flexion 5 Normal Abduction (C5) 5 Normal Elbow/Forearm Strength Elbow and Forearm Manual Muscle Testing Left Flexion (C6) 4+ Good+ Extension (C7) 4+ Good+ Pronation 4- Good- Supination 3- Fair- Right Flexion (C6) 5 Normal Extension (C7) 5 Normal Pronation 4+ Good+ Supination 3+ Fair+ PT-OP-Q Treatments Start: 07/14/23 08:49 Freq: Status: Active Protocol: Document 08/20/23 09:45 MB (Rec: 08/20/23 10:25 MB [id number]) Therapeutic Exercises Standing Exercises Back bologna maker or theracane Comments TrP pressure and MWM B levator and upper traps Other Exercises HEP review on progress note Comments Verbally reviewed HEP on progress note Manual Therapy Treatment Other Other Manual Treatments Pt hook lying with head and neck supported on pillow and legs on wedge: increased tension in thoracic and cervical spine and PA mobs cervical spine grade II, STM cervical paraspinals, B upper traps, SCM, B first rib isometric Neuro Re-Education Treatment Balance Activities TUG Comments SBQC in right hand, 19 sec, indicating increased risk for falls Tinetti Comments Tinetti balance ; gait PT-OP-T Assessment and Plan Start: 07/14/23 08:49 Freq: Status: Active Protocol: Document 08/20/23 09:45 MB (Rec: 08/20/23 10:25 MB [id number]) Physical Therapy Assessment Rehab Potential Rehabilitation Potential Fair Evaluation Complexity Number of Personal Factors/Comorbidities 1-2 Number of Body Systems Impaired 3 Clinical Presentation at Evaluation Evolving Impairments Impairments Activity Tolerance,Balance, Functional Activities, Functional Mobility,Gait,Pain, Posture,ROM,Sensation,Soft Tissue Mobility,Strength, Transfers,Vestibular Other Concerns Fall Risk High fall risk Goals 4 Impairment Lack of postural, cervical and balance HEP Senior Living Goal (LTG) Pt will perform progressive HEP including postural exercises, pelvic realignment exercises, core, intrascapular and LE strengthening and balance exercises with I to improve pain, balance and quality of life. 08/20/23: Pt is performing pect stretch and open book at home , supine flexion and abduction LTG Duration 6 weeks 3 Impairment NDI score 23/50 Supply Coordinator Goal (LTG) Pt will present with improved NDI score to reflect no more than 25% impairment to improve quality of life. 08/20/23: NDI score is 12/50, reflecting 24% impairment LTG Duration Surpassed goal 2 Impairment Falls and imbalance Senior Living Goal (LTG) Pt will perform WNLs on standardized balance test with LRAD such as Tinetti to decrease fall risk. 08/20/23 Tinetti is 24/28 and TUG is 19 sec, indicating increased risk for falls. LTG Duration 6 weeks 1 Impairment Ongoing falls and injury Supply Coordinator Goal (LTG) Pt will deny falls for one month or more to decrease injury risk. 08/20/23: Pt has not fallen since before starting PT, since before July. Walking with the cane is helpful and slows her down LTG Duration Surpassed Assessment Summary Assessment Pt has surpassed NDI score since starting PT. She has started HEP and therapists have not had time to fully progress yet. Her balance is better with cane. Pt currently only has 4 treatments left and the last two are with SENIOR SHIPPING CLERK. PT has spoken with pt that last visit needs to be with PT and pt would benefit from scheduling PT through September but she has not wanted to schedule more appointments. Recommend ongoing PT to progress exercise and manual work. Physical Therapy Plan Frequency and Duration Frequency of Treatment 2x/Week Duration of treatment (weeks) 8 Plan of Care Start Date 08/20/23 Plan of Care End Date 10/06/23 Therapeutic Interventions Therapeutic Interventions Balance Training,Canalithic Repositioning,Coordination Training,Gait Training,Home Exercise Program,Joint Mobilizations,Manual Therapy, Neuromuscular Re-education, Patient/Caregiver Education, Self-Care/Home Management,Soft Tissue Mobilization,Taping, Therapeutic Activities, Therapeutic Exercises, Vestibular Rehabilitation Modalities Cold Pack/Ice Massage,Hot Packs,Iontophoresis,Ultrasound Next Visit Focus/Plan Next Note Type Treatment Note Next Visit Plan With primary PT, initiate Buteyko breathing. Otherwise, gentle flexibility of neck and thoracic spine, postural and core strengthening, ongoing manual work, gentle progression, eventually balance training. Consider strengthening in hook lying with head and neck supported or over pool noodle for intrascapular muscles, shoulders, etc. Consider upper cervical isometrics.
--- NOTE | 2023-08-20 10:26 | PT.OPPOC ---
Physical, Occupational & Speech Therapy At [facility] Current Diagnoses Cervicogenic headache (08/20/23) Visit Care Team Role Provider Type Zaki Gerber DO Family Provider Physician Primary Care Provider Specialty: Family Practice Address: [address] [place] [address], [id number] Email: [email or web address] Maricel Forman PA-C Attending Provider Non-Staff Referring Provider Specialty: Medical Address: [address] [place] [address], [id number] Email: Plan Of Care PT-OP-T Assessment and Plan Start: 07/14/23 08:49 Freq: Status: Active Protocol: Document 08/20/23 09:45 MB (Rec: 08/20/23 10:25 MB [id number]) Physical Therapy Assessment Rehab Potential Rehabilitation Potential Fair Evaluation Complexity Number of Personal Factors/Comorbidities 1-2 Number of Body Systems Impaired 3 Clinical Presentation at Evaluation Evolving Impairments Impairments Activity Tolerance,Balance, Functional Activities, Functional Mobility,Gait,Pain, Posture,ROM,Sensation,Soft Tissue Mobility,Strength, Transfers,Vestibular Other Concerns Fall Risk High fall risk Goals 4 Impairment Lack of postural, cervical and balance HEP Mail Officer Goal (LTG) Pt will perform progressive HEP including postural exercises, pelvic realignment exercises, core, intrascapular and LE strengthening and balance exercises with I to improve pain, balance and quality of life. 08/20/23: Pt is performing pect stretch and open book at home , supine flexion and abduction LTG Duration 6 weeks 3 Impairment NDI score 23/50 Mail Officer Goal (LTG) Pt will present with improved NDI score to reflect no more than 25% impairment to improve quality of life. 08/20/23: NDI score is 12/50, reflecting 24% impairment LTG Duration Surpassed goal 2 Impairment Falls and imbalance Fdc Goal (LTG) Pt will perform WNLs on standardized balance test with LRAD such as Tinetti to decrease fall risk. 08/20/23 Tinetti is 24/28 and TUG is 19 sec, indicating increased risk for falls. LTG Duration 6 weeks 1 Impairment Ongoing falls and injury Mail Officer Goal (LTG) Pt will deny falls for one month or more to decrease injury risk. 08/20/23: Pt has not fallen since before starting PT, since before July. Walking with the cane is helpful and slows her down LTG Duration Surpassed Assessment Summary Assessment Pt has surpassed NDI score since starting PT. She has started HEP and therapists have not had time to fully progress yet. Her balance is better with cane. Pt currently only has 4 treatments left and the last two are with OPERATING SYSTEM DESIGNER. PT has spoken with pt that last visit needs to be with PT and pt would benefit from scheduling PT through September but she has not wanted to schedule more appointments. Recommend ongoing PT to progress exercise and manual work. Physical Therapy Plan Frequency and Duration Frequency of Treatment 2x/Week Duration of treatment (weeks) 8 Plan of Care Start Date 08/20/23 Plan of Care End Date 10/06/23 Therapeutic Interventions Therapeutic Interventions Balance Training,Canalithic Repositioning,Coordination Training,Gait Training,Home Exercise Program,Joint Mobilizations,Manual Therapy, Neuromuscular Re-education, Patient/Caregiver Education, Self-Care/Home Management,Soft Tissue Mobilization,Taping, Therapeutic Activities, Therapeutic Exercises, Vestibular Rehabilitation Modalities Cold Pack/Ice Massage,Hot Packs,Iontophoresis,Ultrasound Next Visit Focus/Plan Next Note Type Treatment Note Next Visit Plan With primary PT, initiate Buteyko breathing. Otherwise, gentle flexibility of neck and thoracic spine, postural and core strengthening, ongoing manual work, gentle progression, eventually balance training. Consider strengthening in hook lying with head and neck supported or over pool noodle for intrascapular muscles, shoulders, etc. Consider upper cervical isometrics. Plan of Care Dates Plan of Care Start Date 08/20/23 Plan of Care End Date 10/06/23 Electronically Signed by: Carley Lara PT 08/20/23 1006 If you are in agreement with this Plan of Care, please return a signed and dated copy. I have reviewed this Plan of Care and certify that the skilled therapy services above are required to meet the patient?s needs. Physician Signature Date Printed Name and Credentials Clinical Instructor Signature Printed Name and Credentials
--- NOTE | 2023-08-27 10:35 | PT.OTN ---
Current Diagnoses Cervicogenic headache (08/27/23) Physical Therapy Treatment Note PT-OP-A Visit Information Start: 07/14/23 08:49 Freq: Status: Active Protocol: Document 08/27/23 09:45 MB (Rec: 08/27/23 10:32 MB [id number]) Out-Patient Physical Therapy Visit Information Visit Information Visit Type Treatment Note Visit Note Medicare 10/24 before KX Visit Start Time 09:45 Visit Stop Time 10:25 Visit Number 8 Number of ENERGY OPERATIONS VICE PRESIDENT Visits 0 PT-OP-B Current Condition Start: 07/14/23 08:49 Freq: Status: Active Protocol: Document 07/16/23 11:20 MB (Rec: 07/16/23 11:43 MB [id number]) Current Condition History of Current Condition Onset Date 6 years ago Current Complaints Head and neck pain History of Current Condition Pt had a right hip fracture after tripping over her cat and had a surgical repair a year and a half ago. Pt is imbalanced with gait and runs hand along the wall with gait. Pt had a fall 3 weeks ago and she tripped on the raised side walk walking into the dentist and landed on both knees and hit right palm, left shoulder and left cheek. Every time she has a fall, her neck and headache pain gets worse. She is on blood thinners and has had B carotid endarterectomies per her report. She had another fall in May in the house and she landed flat on her back and whacked her head. Pt has a four wheeled walker [facility]. She lives at home alone. She has a life alert bracelet that is in her pocket. Pt denies light-headedness when getting up in the morning . She does sit for a while before standing up. Dr. Gerber is her PCP and they are monitoring her BP. Her BP medication was changed from Lisinopril to HCTZ and Losartan and her headaches are not better and she has some concern about this. Pt has scoliosis and two herniated discs in her LB. Pt sleeps on her stomach or side. She reports needing surgery at left elbow for lateral forearm pain and tunnel issues and that she needs carpal tunnel surgery on the right. She has left thumb arthritis. Prior Treatments and Tests MRI brain 07/05/23: negative MRI cervical spine 07/05/23: 1. Progressive findings at C5- C6. Significant interval increase in a central posterior disc protrusion indenting on the ventral cord. There is now moderate to severe canal stenosis. 2. Canal stenosis is mild at C4-C5 borderline at C6-C7. 3. Multilevel foraminal narrowing as described above. Findings include moderate to severe right foraminal narrowing at C5-C6. Treatment Goals Patient/Caregiver Goals Decrease neck pain and headaches PT-OP-C Subjective Start: 07/14/23 08:49 Freq: Status: Active Protocol: Document 08/27/23 09:45 MB (Rec: 08/27/23 10:35 MB [id number]) OP-PT Subjective Patient Comments Patient Comments Pt was taken off of anti- depressant and is now taking Duloxetine for migraines and she has had no HAs for three days. PT-OP-J Posture/Palpation/Skin Start: 07/14/23 08:49 Freq: Status: Active Protocol: Document 07/16/23 11:20 MB (Rec: 07/16/23 12:42 MB [id number]) Posture Evaluation Comments Posture Comments Standing posture: Forward head , rounded shoulders, increased thoracic kyphosis with left sided convexity and right iliac crest higher than the left, left shoulder mildly higher and more forward than the right. PT-OP-K Range of Motion Start: 07/14/23 08:49 Freq: Status: Active Protocol: Document 07/16/23 11:20 MB (Rec: 07/16/23 12:42 MB [id number]) Cervical Spine Range of Motion Cervical Spine Active Testing Position Standing Flexion 40 Extension 35 Rotation Left 50 Rotation Right 50 Lateral Flexion Left 10 Lateral Flexion Right 15 PT-OP-M Strength Start: 07/16/23 12:42 Freq: Status: Active Protocol: Document 07/16/23 11:20 MB (Rec: 07/16/23 12:43 MB [id number]) Shoulder Strength Shoulder Manual Muscle Testing Bilateral Flexion 5 Normal Abduction (C5) 5 Normal Elbow/Forearm Strength Elbow and Forearm Manual Muscle Testing Left Flexion (C6) 4+ Good+ Extension (C7) 4+ Good+ Pronation 4- Good- Supination 3- Fair- Right Flexion (C6) 5 Normal Extension (C7) 5 Normal Pronation 4+ Good+ Supination 3+ Fair+ PT-OP-Q Treatments Start: 07/14/23 08:49 Freq: Status: Active Protocol: Document 08/27/23 09:45 MB (Rec: 05/21/24 10:32 MB [id number]) Therapeutic Exercises Supine Exercises Buteyko breathing Comments Pt hook lying with head and neck supported, see assessment for reps Manual Therapy Treatment Other Other Manual Treatments Pt hook lying with head and neck supported: SCM B upper traps, left first rib isometric, suboccipital release Neuro Re-Education Treatment Other Activities Diaphragm breathing Comments Pt hook lying with head and neck supported and pillow on stomach and cues for belly to expand on inhale and deflate with exhale to help parasympathetic nervous system and to move with nasal breathing. PT-OP-T Assessment and Plan Start: 07/14/23 08:49 Freq: Status: Active Protocol: Document 08/27/23 09:45 MB (Rec: 08/27/23 10:32 MB [id number]) Physical Therapy Assessment Rehab Potential Rehabilitation Potential Fair Evaluation Complexity Number of Personal Factors/Comorbidities 1-2 Number of Body Systems Impaired 3 Clinical Presentation at Evaluation Evolving Impairments Impairments Activity Tolerance,Balance, Functional Activities, Functional Mobility,Gait,Pain, Posture,ROM,Sensation,Soft Tissue Mobility,Strength, Transfers,Vestibular Other Concerns Fall Risk High fall risk Goals 4 Impairment Lack of postural, cervical and balance HEP Antique Jewelry Repairer Goal (LTG) Pt will perform progressive HEP including postural exercises, pelvic realignment exercises, core, intrascapular and LE strengthening and balance exercises with I to improve pain, balance and quality of life. 08/20/23: Pt is performing pect stretch and open book at home , supine flexion and abduction LTG Duration 6 weeks 2 Impairment Falls and imbalance Antique Jewelry Repairer Goal (LTG) Pt will perform WNLs on standardized balance test with LRAD such as Tinetti to decrease fall risk. 08/20/23 Tinetti is 24/28 and TUG is 19 sec, indicating increased risk for falls. LTG Duration 6 weeks Assessment Summary Assessment Buteyko and diaphragm breathing today and pt's fingers are very cold. O2 sats 98% at rest, 58 BPM. After several minutes of nasal breathing, O2 sats 99% and HR 53 BPM. 1st rep 10 sec and vitals are similar; 2nd rep: 11 sec and similar vitals; 3rd rep: 14 sec and HR 50 BPM and sats 99%. 4th rep: 15 sec and HR 52 BPM and sats 99%. 5th rep: 16 sec, HR 50 BPM and sats 99%; 6th rep: 19 sec, HR 53 BPM and sats 99%. Pt has good resting heart rate and her breathing is slower and with more diaphragm movement with exercise today. Physical Therapy Plan Frequency and Duration Frequency of Treatment 2x/Week Duration of treatment (weeks) 8 Plan of Care Start Date 08/20/23 Plan of Care End Date 10/06/23 Therapeutic Interventions Therapeutic Interventions Balance Training,Canalithic Repositioning,Coordination Training,Gait Training,Home Exercise Program,Joint Mobilizations,Manual Therapy, Neuromuscular Re-education, Patient/Caregiver Education, Self-Care/Home Management,Soft Tissue Mobilization,Taping, Therapeutic Activities, Therapeutic Exercises, Vestibular Rehabilitation Modalities Cold Pack/Ice Massage,Hot Packs,Iontophoresis,Ultrasound Next Visit Focus/Plan Next Note Type Treatment Note Next Visit Plan Otherwise, gentle flexibility of neck and thoracic spine, postural and core strengthening, ongoing manual work, gentle progression, eventually balance training. Consider strengthening in hook lying with head and neck supported or over pool noodle for intrascapular muscles, shoulders, etc. Consider upper cervical isometrics.
--- NOTE | 2023-08-29 10:30 | PT.OTN ---
Current Diagnoses Cervicogenic headache (08/29/23) Physical Therapy Treatment Note PT-OP-A Visit Information Start: 07/14/23 08:49 Freq: Status: Active Protocol: Document 08/29/23 09:46 SP (Rec: 08/29/23 10:34 SP [id number]) Out-Patient Physical Therapy Visit Information Visit Information Visit Type Treatment Note Visit Note Medicare 11/24 before KX 06/15 post PN Visit Start Time 09:46 Visit Stop Time 10:30 Visit Number 9 Number of AIRLINE MANAGERIAL SUPERVISOR Visits 1 Evaluation Information Evaluation Date 07/16/23 Precautions Precautions Pt has been orthostatic with PT, reaction to cintia bandage wrapping in the past. PT-OP-B Current Condition Start: 07/14/23 08:49 Freq: Status: Active Protocol: Document 07/16/23 11:20 MB (Rec: 07/16/23 11:43 MB [id number]) Current Condition History of Current Condition Onset Date 6 years ago Current Complaints Head and neck pain History of Current Condition Pt had a right hip fracture after tripping over her cat and had a surgical repair a year and a half ago. Pt is imbalanced with gait and runs hand along the wall with gait. Pt had a fall 3 weeks ago and she tripped on the raised side walk walking into the dentist and landed on both knees and hit right palm, left shoulder and left cheek. Every time she has a fall, her neck and headache pain gets worse. She is on blood thinners and has had B carotid endarterectomies per her report. She had another fall in May in the house and she landed flat on her back and whacked her head. Pt has a four wheeled walker SBQC. She lives at home alone. She has a life alert bracelet that is in her pocket. Pt denies light-headedness when getting up in the morning . She does sit for a while before standing up. Dr. Gerber is her PCP and they are monitoring her BP. Her BP medication was changed from Lisinopril to HCTZ and Losartan and her headaches are not better and she has some concern about this. Pt has scoliosis and two herniated discs in her LB. Pt sleeps on her stomach or side. She reports needing surgery at left elbow for lateral forearm pain and tunnel issues and that she needs carpal tunnel surgery on the right. She has left thumb arthritis. Prior Treatments and Tests MRI brain 3/29/24: negative MRI cervical spine 07/05/23: 1. Progressive findings at C5- C6. Significant interval increase in a central posterior disc protrusion indenting on the ventral cord. There is now moderate to severe canal stenosis. 2. Canal stenosis is mild at C4-C5 borderline at C6-C7. 3. Multilevel foraminal narrowing as described above. Findings include moderate to severe right foraminal narrowing at C5-C6. Treatment Goals Patient/Caregiver Goals Decrease neck pain and headaches PT-OP-C Subjective Start: 07/14/23 08:49 Freq: Status: Active Protocol: Document 08/29/23 09:46 SP (Rec: 08/29/23 10:34 SP [id number]) OP-PT Subjective Patient Comments Patient Comments Pt reports taking med for migraines now and headaches almost gone. Pleased with CS rotational AROM has gained, but having tightness B UT head to shld if can spend time. she reported decided not to have recommended back surgery. PT-OP-J Posture/Palpation/Skin Start: 07/14/23 08:49 Freq: Status: Active Protocol: Document 07/16/23 11:20 MB (Rec: 07/16/23 12:42 MB [id number]) Posture Evaluation Comments Posture Comments Standing posture: Forward head , rounded shoulders, increased thoracic kyphosis with left sided convexity and right iliac crest higher than the left, left shoulder mildly higher and more forward than the right. PT-OP-K Range of Motion Start: 07/14/23 08:49 Freq: Status: Active Protocol: Document 07/16/23 11:20 MB (Rec: 07/16/23 12:42 MB [id number]) Cervical Spine Range of Motion Cervical Spine Active Testing Position Standing Flexion 40 Extension 35 Rotation Left 50 Rotation Right 50 Lateral Flexion Left 10 Lateral Flexion Right 15 PT-OP-M Strength Start: 07/16/23 12:42 Freq: Status: Active Protocol: Document 07/16/23 11:20 MB (Rec: 07/16/23 12:43 MB [id number]) Shoulder Strength Shoulder Manual Muscle Testing Bilateral Flexion 5 Normal Abduction (C5) 5 Normal Elbow/Forearm Strength Elbow and Forearm Manual Muscle Testing Left Flexion (C6) 4+ Good+ Extension (C7) 4+ Good+ Pronation 4- Good- Supination 3- Fair- Right Flexion (C6) 5 Normal Extension (C7) 5 Normal Pronation 4+ Good+ Supination 3+ Fair+ PT-OP-Q Treatments Start: 07/14/23 08:49 Freq: Status: Active Protocol: Document 08/29/23 09:46 SP (Rec: 08/29/23 10:34 SP [id number]) Therapeutic Exercises Sidelying Exercises Open book Side bilateral Reps/Minutes 10 Comments good form L>R ant hip stretch Sitting Exercises TS rotation Sitting Exercise Name trialed in PT Side bilateral Resistance hands clasped front Reps/Minutes x5 each side Comments good midTS rotation stretch and better mob post manual Standing Exercises wall posture Side bilateral Equipment Used towel behind head/neck Reps/Minutes 5 reps each Comments spinal roll up wall, UEs anatomical position, ABD Manual Therapy Treatment Soft Tissue Mobilization TS Body Location B paraspinals, Rhomboid, LT Mobilization Type Rolling,Sustained Pressure, Other Comments STMs and PROM scapulothoracic retraction/depression with sustained pressure at TPs on that side approx T5-8. neck Body Location R>L UT, middle Trap, Mobilization Type Myofascial Release Intensity/Depth Moderate Comments broad finger pressure with adjustment feedback. PT-OP-T Assessment and Plan Start: 07/14/23 08:49 Freq: Status: Active Protocol: Document 08/29/23 09:46 SP (Rec: 08/29/23 10:34 SP [id number]) Physical Therapy Assessment Goals 4 Impairment Lack of postural, cervical and balance HEP Supervisor Customer Records Division Goal (LTG) Pt will perform progressive HEP including postural exercises, pelvic realignment exercises, core, intrascapular and LE strengthening and balance exercises with I to improve pain, balance and quality of life. 08/20/23: Pt is performing pect stretch and open book at home , supine flexion and abduction LTG Duration 6 weeks 2 Impairment Falls and imbalance Supervisor Customer Records Division Goal (LTG) Pt will perform WNLs on standardized balance test with LRAD such as Tinetti to decrease fall risk. 08/20/23 Tinetti is 24/28 and TUG is 19 sec, indicating increased risk for falls. LTG Duration 6 weeks Assessment Summary Assessment Pt responded well to manual with feedback to good gentle pressure more broad and scapular and thoracic mobility , that feels alot more relaxing and can move my trunk better. Pt more open on L than R during sidelying open book review of HEP and initiated seated TS rotation pnfree. Cues for set up, wall points of contact with supported towel at CS and UE positioning for wall postural supported alignment. She reports is suprised her posture and a good low effort challenge no pain to maintain, but will be helpful to do more at home. Physical Therapy Plan Frequency and Duration Frequency of Treatment 2x/Week Duration of treatment (weeks) 8 Plan of Care Start Date 08/20/23 Plan of Care End Date 10/06/23 Therapeutic Interventions Therapeutic Interventions Balance Training,Canalithic Repositioning,Coordination Training,Gait Training,Home Exercise Program,Joint Mobilizations,Manual Therapy, Neuromuscular Re-education, Patient/Caregiver Education, Self-Care/Home Management,Soft Tissue Mobilization,Taping, Therapeutic Activities, Therapeutic Exercises, Vestibular Rehabilitation Modalities Cold Pack/Ice Massage,Hot Packs,Iontophoresis,Ultrasound Next Visit Focus/Plan Next Note Type Treatment Note Next Visit Plan Assess response to manual and TS rotaiton and Scapulothoracic ROM last tx before add seated TS rotaiton to HEP. PT POC: entle flexibility of neck and thoracic spine, postural and core strengthening, ongoing manual work, gentle progression, eventually balance training. Consider strengthening in hook lying with head and neck supported or over pool noodle for intrascapular muscles, shoulders, etc. Consider upper cervical isometrics.
--- NOTE | 2023-09-03 10:32 | PT.OTN ---
Current Diagnoses Cervicogenic headache (09/03/23) Physical Therapy Treatment Note PT-OP-A Visit Information Start: 07/14/23 08:49 Freq: Status: Active Protocol: Document 09/03/23 09:46 SP (Rec: 09/03/23 10:37 SP [id number]) Out-Patient Physical Therapy Visit Information Visit Information Visit Type Treatment Note Visit Note Medicare 01/24 before KX 07/16 post PN Visit Start Time 09:46 Visit Stop Time 10:32 Visit Number 10 Number of FORESTRY TECHNICIAN Visits 2 Evaluation Information Evaluation Date 07/16/23 Precautions Precautions Pt has been orthostatic with PT, reaction to cintia bandage wrapping in the past. PT-OP-B Current Condition Start: 07/14/23 08:49 Freq: Status: Active Protocol: Document 07/16/23 11:20 MB (Rec: 07/16/23 11:43 MB [id number]) Current Condition History of Current Condition Onset Date 6 years ago Current Complaints Head and neck pain History of Current Condition Pt had a right hip fracture after tripping over her cat and had a surgical repair a year and a half ago. Pt is imbalanced with gait and runs hand along the wall with gait. Pt had a fall 3 weeks ago and she tripped on the raised side walk walking into the dentist and landed on both knees and hit right palm, left shoulder and left cheek. Every time she has a fall, her neck and headache pain gets worse. She is on blood thinners and has had B carotid endarterectomies per her report. She had another fall in May in the house and she landed flat on her back and whacked her head. Pt has a four wheeled walker SBQC. She lives at home alone. She has a life alert bracelet that is in her pocket. Pt denies light-headedness when getting up in the morning . She does sit for a while before standing up. Dr. Gerber is her PCP and they are monitoring her BP. Her BP medication was changed from Lisinopril to HCTZ and Losartan and her headaches are not better and she has some concern about this. Pt has scoliosis and two herniated discs in her LB. Pt sleeps on her stomach or side. She reports needing surgery at left elbow for lateral forearm pain and tunnel issues and that she needs carpal tunnel surgery on the right. She has left thumb arthritis. Prior Treatments and Tests MRI brain 3/29/24: negative MRI cervical spine 07/05/23: 1. Progressive findings at C5- C6. Significant interval increase in a central posterior disc protrusion indenting on the ventral cord. There is now moderate to severe canal stenosis. 2. Canal stenosis is mild at C4-C5 borderline at C6-C7. 3. Multilevel foraminal narrowing as described above. Findings include moderate to severe right foraminal narrowing at C5-C6. Treatment Goals Patient/Caregiver Goals Decrease neck pain and headaches PT-OP-C Subjective Start: 07/14/23 08:49 Freq: Status: Active Protocol: Document 09/03/23 09:46 SP (Rec: 09/03/23 10:37 SP [id number]) OP-PT Subjective Patient Comments Patient Comments Pt reports the manual was very helpful last tx, later day had little discomfort L UT but didn't last long. Reports wall posture is hard with curvature of her spine and frustrates her to do as well as would like. PT-OP-J Posture/Palpation/Skin Start: 07/14/23 08:49 Freq: Status: Active Protocol: Document 07/16/23 11:20 MB (Rec: 07/16/23 12:42 MB [id number]) Posture Evaluation Comments Posture Comments Standing posture: Forward head , rounded shoulders, increased thoracic kyphosis with left sided convexity and right iliac crest higher than the left, left shoulder mildly higher and more forward than the right. PT-OP-K Range of Motion Start: 07/14/23 08:49 Freq: Status: Active Protocol: Document 07/16/23 11:20 MB (Rec: 07/16/23 12:42 MB [id number]) Cervical Spine Range of Motion Cervical Spine Active Testing Position Standing Flexion 40 Extension 35 Rotation Left 50 Rotation Right 50 Lateral Flexion Left 10 Lateral Flexion Right 15 PT-OP-M Strength Start: 07/16/23 12:42 Freq: Status: Active Protocol: Document 07/16/23 11:20 MB (Rec: 07/16/23 12:43 MB [id number]) Shoulder Strength Shoulder Manual Muscle Testing Bilateral Flexion 5 Normal Abduction (C5) 5 Normal Elbow/Forearm Strength Elbow and Forearm Manual Muscle Testing Left Flexion (C6) 4+ Good+ Extension (C7) 4+ Good+ Pronation 4- Good- Supination 3- Fair- Right Flexion (C6) 5 Normal Extension (C7) 5 Normal Pronation 4+ Good+ Supination 3+ Fair+ PT-OP-Q Treatments Start: 07/14/23 08:49 Freq: Status: Active Protocol: Document 09/03/23 09:46 SP (Rec: 09/03/23 10:37 SP [id number]) Therapeutic Exercises Supine Exercises chin nods, lift Supine Exercise Name 1. nods 2. nod lift Resistance table Equipment Used small folded towel behind neck Comments Extra time spent CS nod hold then lift reduction protraction- incorp LR&sit Scapular retraction Supine Exercise Name 1. shld abd 45 deg shld ER 2. FF 3. 1/2 X Resistance hooklying Equipment Used over noodle, towel roll under neck Reps/Minutes 10 reps 2 SH each Comments slight adjustments slow pace allow spine along noodle, breath AROM cervical spine Equipment Used over noodle, pillow under head , knees bent Reps/Minutes 10 reps rotation each side, end-range stretch Comments good response ROM/stretch Sitting Exercises TS rotation Sitting Exercise Name (not added to HEP yet 09/03) Side bilateral Resistance hands clasped front Reps/Minutes x5 each side Comments good midTS rotation stretch and better mob post manual Therapeutic Activity Therapeutic Activity DNF /c transfers Name log roll >sit, on/off floor Comments ed chin nod flexion during R LR and transition to sitting carryover post DNF ther ex, improved maintaining post ed. Manual Therapy Treatment Soft Tissue Mobilization neck Body Location R>L UT, middle Trap, SCM, Scalene Mobilization Type Myofascial Release Intensity/Depth Moderate Comments broad finger pressure with adjustment pressure feedback posteriorly, manual and self application SCM. PT-OP-T Assessment and Plan Start: 07/14/23 08:49 Freq: Status: Active Protocol: Document 09/03/23 09:46 SP (Rec: 09/03/23 10:37 SP [id number]) Physical Therapy Assessment Goals 4 Impairment Lack of postural, cervical and balance HEP Correction Goal (LTG) Pt will perform progressive HEP including postural exercises, pelvic realignment exercises, core, intrascapular and LE strengthening and balance exercises with I to improve pain, balance and quality of life. 08/20/23: Pt is performing pect stretch and open book at home , supine flexion and abduction LTG Duration 6 weeks 2 Impairment Falls and imbalance Correction Goal (LTG) Pt will perform WNLs on standardized balance test with LRAD such as Tinetti to decrease fall risk. 08/20/23 Tinetti is 24/28 and TUG is 19 sec, indicating increased risk for falls. LTG Duration 6 weeks Assessment Summary Assessment Pt responds well to manual cervical STMs with more broad finger pad pressure. Incorporated deep neck flexion lifts into ther ex today due to noted slight head protraction while getting up from table. Improved maintain nod/tuck post cues for tongue on roof mouth lessening SCM recruitment. Improved scapular mobility and cervical mobility noted over noodle with carryover TS rotation seated once in sitting. Discussed hold off on wall posture (can revisit later) and perform over noodle. Would benefit from Physical Therapy Plan Frequency and Duration Frequency of Treatment 2x/Week Duration of treatment (weeks) 8 Plan of Care Start Date 08/20/23 Plan of Care End Date 10/06/23 Therapeutic Interventions Therapeutic Interventions Balance Training,Canalithic Repositioning,Coordination Training,Gait Training,Home Exercise Program,Joint Mobilizations,Manual Therapy, Neuromuscular Re-education, Patient/Caregiver Education, Self-Care/Home Management,Soft Tissue Mobilization,Taping, Therapeutic Activities, Therapeutic Exercises, Vestibular Rehabilitation Modalities Cold Pack/Ice Massage,Hot Packs,Iontophoresis,Ultrasound Next Visit Focus/Plan Next Note Type Treatment Note Next Visit Plan Reassess response to DNF lifts last tx for CS support during transfers and postural awareness. Progress into core strengthening and balance if tolerated next tx. PT POC: entle flexibility of neck and thoracic spine, postural and core strengthening, ongoing manual work, gentle progression, eventually balance training. Consider strengthening in hook lying with head and neck supported or over pool noodle for intrascapular muscles, shoulders, etc. Consider upper cervical isometrics.
--- NOTE | 2023-09-05 09:46 | PT.OTN ---
Current Diagnoses Cervicogenic headache (09/05/23) Physical Therapy Treatment Note PT-OP-A Visit Information Start: 07/14/23 08:49 Freq: Status: Active Protocol: Document 09/05/23 09:06 SP (Rec: 09/05/23 09:50 SP [id number]) Out-Patient Physical Therapy Visit Information Visit Information Visit Type Treatment Note Visit Note Medicare 02/24 before KX 08/15 post PN Visit Start Time 09:06 Visit Stop Time 09:46 Visit Number 11 Number of PANEL SEWER Visits 3 Evaluation Information Evaluation Date 07/16/23 Precautions Precautions Pt has been orthostatic in past with PT, reaction to cintia bandage wrapping in the past. PT-OP-B Current Condition Start: 07/14/23 08:49 Freq: Status: Active Protocol: Document 07/16/23 11:20 MB (Rec: 07/16/23 11:43 MB [id number]) Current Condition History of Current Condition Onset Date 6 years ago Current Complaints Head and neck pain History of Current Condition Pt had a right hip fracture after tripping over her cat and had a surgical repair a year and a half ago. Pt is imbalanced with gait and runs hand along the wall with gait. Pt had a fall 3 weeks ago and she tripped on the raised side walk walking into the dentist and landed on both knees and hit right palm, left shoulder and left cheek. Every time she has a fall, her neck and headache pain gets worse. She is on blood thinners and has had B carotid endarterectomies per her report. She had another fall in May in the house and she landed flat on her back and whacked her head. Pt has a four wheeled walker [employer]. She lives at home alone. She has a life alert bracelet that is in her pocket. Pt denies light-headedness when getting up in the morning . She does sit for a while before standing up. Dr. Gerber is her PCP and they are monitoring her BP. Her BP medication was changed from Lisinopril to HCTZ and Losartan and her headaches are not better and she has some concern about this. Pt has scoliosis and two herniated discs in her LB. Pt sleeps on her stomach or side. She reports needing surgery at left elbow for lateral forearm pain and tunnel issues and that she needs carpal tunnel surgery on the right. She has left thumb arthritis. Prior Treatments and Tests MRI brain 07/05/23: negative MRI cervical spine 07/05/23: 1. Progressive findings at C5- C6. Significant interval increase in a central posterior disc protrusion indenting on the ventral cord. There is now moderate to severe canal stenosis. 2. Canal stenosis is mild at C4-C5 borderline at C6-C7. 3. Multilevel foraminal narrowing as described above. Findings include moderate to severe right foraminal narrowing at C5-C6. Treatment Goals Patient/Caregiver Goals Decrease neck pain and headaches PT-OP-C Subjective Start: 07/14/23 08:49 Freq: Status: Active Protocol: Document 09/05/23 09:06 SP (Rec: 09/05/23 09:50 SP [id number]) OP-PT Subjective Patient Comments Patient Comments Pt reported R anterior leg cramped up when getting on floor to perform her exercises , quick descend might have pulled R side neck yesterday. She mentioned still residual over quad and UT today. She had pain with supine cervical head lift yesterday when trialed head lifts like was trying in PT (not given as HEP ), caused pain in neck in the moment vs during tx was fine just tiring. PT-OP-J Posture/Palpation/Skin Start: 07/14/23 08:49 Freq: Status: Active Protocol: Document 07/16/23 11:20 MB (Rec: 07/16/23 12:42 MB [id number]) Posture Evaluation Comments Posture Comments Standing posture: Forward head , rounded shoulders, increased thoracic kyphosis with left sided convexity and right iliac crest higher than the left, left shoulder mildly higher and more forward than the right. PT-OP-K Range of Motion Start: 07/14/23 08:49 Freq: Status: Active Protocol: Document 07/16/23 11:20 MB (Rec: 07/16/23 12:42 MB [id number]) Cervical Spine Range of Motion Cervical Spine Active Testing Position Standing Flexion 40 Extension 35 Rotation Left 50 Rotation Right 50 Lateral Flexion Left 10 Lateral Flexion Right 15 PT-OP-M Strength Start: 07/16/23 12:42 Freq: Status: Active Protocol: Document 07/16/23 11:20 MB (Rec: 07/16/23 12:43 MB [id number]) Shoulder Strength Shoulder Manual Muscle Testing Bilateral Flexion 5 Normal Abduction (C5) 5 Normal Elbow/Forearm Strength Elbow and Forearm Manual Muscle Testing Left Flexion (C6) 4+ Good+ Extension (C7) 4+ Good+ Pronation 4- Good- Supination 3- Fair- Right Flexion (C6) 5 Normal Extension (C7) 5 Normal Pronation 4+ Good+ Supination 3+ Fair+ PT-OP-Q Treatments Start: 07/14/23 08:49 Freq: Status: Active Protocol: Document 09/05/23 09:06 SP (Rec: 09/05/23 09:50 SP [id number]) Therapeutic Exercises Supine Exercises pelvic realignment ex Supine Exercise Name added to HEP /c HO Side bilateral Reps/Minutes 3 Sh x5 reps Comments cued slow gentle pressure, ease releases- improved LS ROM Scapular retraction Resistance perform on bed, not floor. Equipment Used Disussed hold off use noodle with shld FF/ER/1/2X Pect stretch Supine Exercise Name hooklying Equipment Used towel roll under head Reps/Minutes hold 30 sec and 2 reps AROM cervical spine Equipment Used towel roll under head Reps/Minutes 10 reps rotation each side, end-range stretch Comments good response ROM pnfree Sitting Exercises CS ROM Sitting Exercise Name reviewed self AROM: rotation, flex/ext, SB Side bilateral TS rotation Sitting Exercise Name reviewed (continue declined HO ) Side bilateral Resistance arms across chest tall posture front chair Equipment Used hands clasped front Reps/Minutes x5 each side Comments good midTS rotation ROM stretch- pnfree Gait Training Gait Activity Gait with SPC Device Used HUrry cane in LUE patterning / c RLE Level of Assistance S Distance/Duration across inside clinic Treatment Focus proper patterning, midline stab Neuro Re-Education Treatment Balance Activities balance Details Stagger stance Comments head turns: horizontal Self-Care/Home Management Treatment Education Patient Education Home Exercise Program,Pain Management,Posture,Safety Other Education Education hold off on getting on floor, not discussed to get on floor to perform for HEP, PANEL SEWER instructed in bed at this time safe level, hold use of noodle can just perform UE ROM on bed if neck and back feel ok. Initiated pelvic realignment today with good feedback response, more mobility in R hip end tx. PT-OP-T Assessment and Plan Start: 07/14/23 08:49 Freq: Status: Active Protocol: Document 09/05/23 09:06 SP (Rec: 09/05/23 09:50 SP [id number]) Physical Therapy Assessment Goals 4 Impairment Lack of postural, cervical and balance HEP Skilled Nursing Goal (LTG) Pt will perform progressive HEP including postural exercises, pelvic realignment exercises, core, intrascapular and LE strengthening and balance exercises with I to improve pain, balance and quality of life. 08/20/23: Pt is performing pect stretch and open book at home , supine flexion and abduction LTG Duration 6 weeks 2 Impairment Falls and imbalance Skilled Nursing Goal (LTG) Pt will perform WNLs on standardized balance test with LRAD such as Tinetti to decrease fall risk. 08/20/23 Tinetti is 24/28 and TUG is 19 sec, indicating increased risk for falls. LTG Duration 6 weeks Assessment Summary Assessment Pt reported improved R hip ROM and reduction discomfort, no pain cervical and thoracic rotation AROM end tx and added pelvic realignment ex today with HO for carryover R hip mobility for home. Physical Therapy Plan Frequency and Duration Frequency of Treatment 2x/Week Duration of treatment (weeks) 8 Plan of Care Start Date 08/20/23 Plan of Care End Date 10/06/23 Therapeutic Interventions Therapeutic Interventions Balance Training,Canalithic Repositioning,Coordination Training,Gait Training,Home Exercise Program,Joint Mobilizations,Manual Therapy, Neuromuscular Re-education, Patient/Caregiver Education, Self-Care/Home Management,Soft Tissue Mobilization,Taping, Therapeutic Activities, Therapeutic Exercises, Vestibular Rehabilitation Modalities Cold Pack/Ice Massage,Hot Packs,Iontophoresis,Ultrasound Next Visit Focus/Plan Next Note Type Treatment Note Next Visit Plan PT in 2 visits last scheduled appt 09/17 , POC exp 10/05. Recheck HEP, response to added pelvic realignment, DNF carryover into transfers, CS rotation tolerance. PT POC: entle flexibility of neck and thoracic spine, postural and core strengthening, ongoing manual work, gentle progression, eventually balance training. Consider strengthening in hook lying with head and neck supported or over pool noodle for intrascapular muscles, shoulders, etc. Consider upper cervical isometrics.
--- NOTE | 2023-09-09 15:14 | PT.OTN ---
Current Diagnoses Cervicogenic headache (09/09/23) Physical Therapy Treatment Note PT-OP-A Visit Information Start: 07/14/23 08:49 Freq: Status: Active Protocol: Document 09/09/23 14:32 SP (Rec: 09/09/23 15:34 SP [id number]) Out-Patient Physical Therapy Visit Information Visit Information Visit Type Treatment Note Visit Note Medicare 03/26 before KX 08/15 post PN Visit Start Time 14:34 Visit Stop Time 15:14 Visit Number 12 Number of SHOES HAND SEWER Visits 4 Evaluation Information Evaluation Date 07/16/23 Precautions Precautions Pt has been orthostatic in past with PT, reaction to cintia bandage wrapping in the past. PT-OP-B Current Condition Start: 07/14/23 08:49 Freq: Status: Active Protocol: Document 07/16/23 11:20 MB (Rec: 07/16/23 11:43 MB [id number]) Current Condition History of Current Condition Onset Date 6 years ago Current Complaints Head and neck pain History of Current Condition Pt had a right hip fracture after tripping over her cat and had a surgical repair a year and a half ago. Pt is imbalanced with gait and runs hand along the wall with gait. Pt had a fall 3 weeks ago and she tripped on the raised side walk walking into the dentist and landed on both knees and hit right palm, left shoulder and left cheek. Every time she has a fall, her neck and headache pain gets worse. She is on blood thinners and has had B carotid endarterectomies per her report. She had another fall in May in the house and she landed flat on her back and whacked her head. Pt has a four wheeled walker [employer]. She lives at home alone. She has a life alert bracelet that is in her pocket. Pt denies light-headedness when getting up in the morning . She does sit for a while before standing up. Dr. Gerber is her PCP and they are monitoring her BP. Her BP medication was changed from Lisinopril to HCTZ and Losartan and her headaches are not better and she has some concern about this. Pt has scoliosis and two herniated discs in her LB. Pt sleeps on her stomach or side. She reports needing surgery at left elbow for lateral forearm pain and tunnel issues and that she needs carpal tunnel surgery on the right. She has left thumb arthritis. Prior Treatments and Tests MRI brain 07/05/23: negative MRI cervical spine 07/05/23: 1. Progressive findings at C5- C6. Significant interval increase in a central posterior disc protrusion indenting on the ventral cord. There is now moderate to severe canal stenosis. 2. Canal stenosis is mild at C4-C5 borderline at C6-C7. 3. Multilevel foraminal narrowing as described above. Findings include moderate to severe right foraminal narrowing at C5-C6. Treatment Goals Patient/Caregiver Goals Decrease neck pain and headaches PT-OP-C Subjective Start: 07/14/23 08:49 Freq: Status: Active Protocol: Document 09/09/23 14:32 SP (Rec: 09/09/23 15:34 SP [id number]) OP-PT Subjective Patient Comments Patient Comments Pt reports neck upper shoulders turning better. Her headaches have seen significant reduction in intensity and now realized today is the 1st in 5 days while with new medication taking (will bring in name next tx). Pt doing her exercises on bed with difficulty getting on/off floor. R hip alot better from attempting doing on floor and quick descend due to R hip/ quad gave way before last tx. PT-OP-J Posture/Palpation/Skin Start: 07/14/23 08:49 Freq: Status: Active Protocol: Document 07/16/23 11:20 MB (Rec: 07/16/23 12:42 MB [id number]) Posture Evaluation Comments Posture Comments Standing posture: Forward head , rounded shoulders, increased thoracic kyphosis with left sided convexity and right iliac crest higher than the left, left shoulder mildly higher and more forward than the right. PT-OP-K Range of Motion Start: 07/14/23 08:49 Freq: Status: Active Protocol: Document 07/16/23 11:20 MB (Rec: 07/16/23 12:42 MB [id number]) Cervical Spine Range of Motion Cervical Spine Active Testing Position Standing Flexion 40 Extension 35 Rotation Left 50 Rotation Right 50 Lateral Flexion Left 10 Lateral Flexion Right 15 PT-OP-M Strength Start: 07/16/23 12:42 Freq: Status: Active Protocol: Document 07/16/23 11:20 MB (Rec: 07/16/23 12:43 MB [id number]) Shoulder Strength Shoulder Manual Muscle Testing Bilateral Flexion 5 Normal Abduction (C5) 5 Normal Elbow/Forearm Strength Elbow and Forearm Manual Muscle Testing Left Flexion (C6) 4+ Good+ Extension (C7) 4+ Good+ Pronation 4- Good- Supination 3- Fair- Right Flexion (C6) 5 Normal Extension (C7) 5 Normal Pronation 4+ Good+ Supination 3+ Fair+ PT-OP-Q Treatments Start: 07/14/23 08:49 Freq: Status: Active Protocol: Document 09/09/23 14:32 SP (Rec: 09/09/23 15:34 SP [id number]) Therapeutic Exercises Supine Exercises pelvic realignment ex Supine Exercise Name review HEP /c HO (hs, adductor isometric & pelvic lift) reviewed Side bilateral Reps/Minutes 3 Sh x5 reps each Comments cued slow gentle pressure, ease releases- improved LS ROM Scapular retraction Supine Exercise Name 1. shld abd 45 deg shld ER 2. FF 3. Ts. 4. 1/2 X Resistance AROM> TB #1 Equipment Used perform on bed, not floor. Reps/Minutes 10 reps Comments slight self adjustments, cued slow ecc pacing, breath- pnfree AROM cervical spine Equipment Used towel roll under head Reps/Minutes 10 reps rotation each side, end-range stretch Comments good response ROM pnfree Sidelying Exercises Open book Sidelying Exercise Name reviewed Side bilateral Reps/Minutes 8 rep each side Comments good form & stretch Sitting Exercises TS rotation Sitting Exercise Name reviewed (continue declined HO ) Side bilateral Resistance AROM> TB #1 Equipment Used hands clasped front Reps/Minutes x8 each side Comments good midTS rotation ROM stretch- pnfree Standing Exercises wall posture Standing Exercise Name 1. anatomical postion 2. shld ER 3. Shld ABD OH Side bilateral Resistance TB #1 Equipment Used towel behind head/neck Reps/Minutes 8 reps each Comments spinal roll up wall, UEs anatomical position, ER Manual Therapy Treatment Soft Tissue Mobilization neck Body Location L>R UT, SOR, SCM Mobilization Type Myofascial Release Intensity/Depth Moderate Comments broad finger pressure with adjustment MF glides Neuro Re-Education Treatment Balance Activities dynamic walking Details fwd /c head turns, back stepping Surface tile Equipment no AD Reps/Duration 50 ft hallway 4 laps Comments CGA/close SBA: cued increase KANDY, midline trunk during WB into each LE. Other Activities Diaphragm breathing Comments during manual neck PT-OP-T Assessment and Plan Start: 07/14/23 08:49 Freq: Status: Active Protocol: Document 09/09/23 14:32 SP (Rec: 09/09/23 15:34 SP [id number]) Physical Therapy Assessment Goals 4 Impairment Lack of postural, cervical and balance HEP Impairment . [employer] Goal (LTG) Pt will perform progressive HEP including postural exercises, pelvic realignment exercises, core, intrascapular and LE strengthening and balance exercises with I to improve pain, balance and quality of life. 08/20/23: Pt is performing pect stretch and open book at home , supine flexion and abduction 09/09/23: hooklying pelvic realignment ex, resisted shld FF/ER/HABD/half X (bed not floor, DC noodle), open book, seated added TB to TS rotation , wall posture ER and ABD OH glides. LTG Duration 6 weeks progressing 09/09/23 2 Impairment Falls and imbalance [employer] Goal (LTG) Pt will perform WNLs on standardized balance test with LRAD such as Tinetti to decrease fall risk. 08/20/23 Tinetti is 24/28 and TUG is 19 sec, indicating increased risk for falls. LTG Duration 6 weeks Assessment Summary Assessment Pt making progress with cervical and TS mobility, progressed resistance with hooklying and seated today with no adverse affects. Continued wall posture UE AROM with no pain. Incorporated dynamic gait today for progression body spacial awareness and corrections, cues for increased KANDY and increase DF foot clearance. Discussed self midline and ed not to lean on hurrycane stationary standing or walking , utilize for balance corrections needed, tends to lean into cane, believe a habit with pt in agreement. Physical Therapy Plan Next Visit Focus/Plan Next Note Type Treatment Note Next Visit Plan PT next visit last scheduled appt 09/17, POC exp 10/05. Assess if add more appts. Next tx: Recheck HEP, response to resisted TS rotation and hooklying ther ex. Pt stated will try her 5# DBs as did in past laying down and see if still ok vs TB #1. PT POC: progress core strengthening, ongoing manual work, gentle progression, give corner balance training for home carryover and progress in PT uneven surfaces. Consider upper cervical isometrics.
--- NOTE | 2023-09-22 08:17 | PT.OPDS ---
Current Diagnoses Cervicogenic headache (09/09/23) Visit Care Team Role Provider Type Zaki Gerber DO Family Provider Physician Primary Care Provider Specialty: Family Practice Address: [address] [place] [address], [id number] Email: [email or web address] Maricel Forman PA-C Attending Provider Non-Staff Referring Provider Specialty: Medical Address: [address] [place] [address], [id number] Email: Visit Number Visit Number 12 Discharge Summary PT-OP-B Current Condition Start: 07/14/23 08:49 Freq: Status: Active Protocol: Document 07/16/23 11:20 MB (Rec: 07/16/23 11:43 MB [id number]) Current Condition History of Current Condition Onset Date 6 years ago Current Complaints Head and neck pain History of Current Condition Pt had a right hip fracture after tripping over her cat and had a surgical repair a year and a half ago. Pt is imbalanced with gait and runs hand along the wall with gait. Pt had a fall 3 weeks ago and she tripped on the raised side walk walking into the dentist and landed on both knees and hit right palm, left shoulder and left cheek. Every time she has a fall, her neck and headache pain gets worse. She is on blood thinners and has had B carotid endarterectomies per her report. She had another fall in May in the house and she landed flat on her back and whacked her head. Pt has a four wheeled walker [employer]. She lives at home alone. She has a life alert bracelet that is in her pocket. Pt denies light-headedness when getting up in the morning . She does sit for a while before standing up. Dr. Gerber is her PCP and they are monitoring her BP. Her BP medication was changed from Lisinopril to HCTZ and Losartan and her headaches are not better and she has some concern about this. Pt has scoliosis and two herniated discs in her LB. Pt sleeps on her stomach or side. She reports needing surgery at left elbow for lateral forearm pain and tunnel issues and that she needs carpal tunnel surgery on the right. She has left thumb arthritis. Prior Treatments and Tests MRI brain 07/05/23: negative MRI cervical spine 07/05/23: 1. Progressive findings at C5- C6. Significant interval increase in a central posterior disc protrusion indenting on the ventral cord. There is now moderate to severe canal stenosis. 2. Canal stenosis is mild at C4-C5 borderline at C6-C7. 3. Multilevel foraminal narrowing as described above. Findings include moderate to severe right foraminal narrowing at C5-C6. Treatment Goals Patient/Caregiver Goals Decrease neck pain and headaches PT-OP-C Subjective Start: 07/14/23 08:49 Freq: Status: Active Protocol: Document 09/09/23 14:32 SP (Rec: 09/09/23 15:34 SP [id number]) OP-PT Subjective Patient Comments Patient Comments Pt reports neck upper shoulders turning better. Her headaches have seen significant reduction in intensity and now realized today is the 1st in 5 days while with new medication taking (will bring in name next tx). Pt doing her exercises on bed with difficulty getting on/off floor. R hip alot better from attempting doing on floor and quick descend due to R hip/ quad gave way before last tx. PT-OP-J Posture/Palpation/Skin Start: 07/14/23 08:49 Freq: Status: Active Protocol: Document 07/16/23 11:20 MB (Rec: 07/16/23 12:42 MB [id number]) Posture Evaluation Comments Posture Comments Standing posture: Forward head , rounded shoulders, increased thoracic kyphosis with left sided convexity and right iliac crest higher than the left, left shoulder mildly higher and more forward than the right. PT-OP-K Range of Motion Start: 07/14/23 08:49 Freq: Status: Active Protocol: Document 07/16/23 11:20 MB (Rec: 07/16/23 12:42 MB [id number]) Cervical Spine Range of Motion Cervical Spine Active Testing Position Standing Flexion 40 Extension 35 Rotation Left 50 Rotation Right 50 Lateral Flexion Left 10 Lateral Flexion Right 15 PT-OP-M Strength Start: 07/16/23 12:42 Freq: Status: Active Protocol: Document 07/16/23 11:20 MB (Rec: 07/16/23 12:43 MB [id number]) Shoulder Strength Shoulder Manual Muscle Testing Bilateral Flexion 5 Normal Abduction (C5) 5 Normal Elbow/Forearm Strength Elbow and Forearm Manual Muscle Testing Left Flexion (C6) 4+ Good+ Extension (C7) 4+ Good+ Pronation 4- Good- Supination 3- Fair- Right Flexion (C6) 5 Normal Extension (C7) 5 Normal Pronation 4+ Good+ Supination 3+ Fair+ PT-OP-T Assessment and Plan Start: 07/14/23 08:49 Freq: Status: Active Protocol: Document 09/22/23 08:17 MB (Rec: 09/22/23 08:17 MB [id number]) Physical Therapy Assessment Assessment Summary Assessment Pt canceled last scheduled appointment which was planned d/c date.
--- NOTE | 2023-09-24 09:31 | PT-OP ANOTE ---
[employer] TECHNICIAN called pt follow up cancellation last visit. She stated doing well with what seen for PT, spoke to Carley VILLANUEVA and ready for DC on own. She stated is having other medical concerns and medication changes and need to focus on this right now. Thanked for great care. PT completed DC.
== END 2023-10-22 11:15 ==
LOC: PHYS 14:30
PROVIDERS: Family Provider Family Medicine; PCP Family Medicine; Referring Provider Physician Assistant; Visit Provider Physician Assistant
DX: G44.86 Cervicogenic headache (principal)
CPT/HCPCS: 97110; 97112; 97116; 97140; 97161; 97530; 97535

== ENCOUNTER → 2023-09-25 09:03 | Outpatient (CLI) | payer MEDICARE, OTHER, SELFPAY ==
[2023-09-24 15:25] VITALS: BMI 24.7
[2023-09-25 09:46] LABS: Add Manual Diff / Slide Review NO; Basophils Absolute Auto 100 /uL (0-100); Basophils Percent Auto 1.2 % (0-2); Eosinophils Absolute Auto 200 /uL (0-450); Eosinophils Percent Auto 2.1 % (2-4); Hematocrit 35.1 % (36-46); Hemoglobin 11.4 g/dL (12.0-16.0); Lymphocytes Absolute Auto 1900 /uL (1100-4500); Lymphocytes Percent Auto 20.4 % (25-40); Mean Corpuscular HGB Conc 32.5 % (30-36); Mean Corpuscular Hemoglobin 31.7 PG (26-34); Mean Corpuscular Volume 97.5 fL (80-100); Monocytes Absolute Auto 700 /uL (0-900); Monocytes Percent Auto 8.2 % (3-14); Neutrophils Absolute Auto 6200 /uL (1500-7000); Neutrophils Percent Auto 68.1 % (50-75); Platelet Count 289 X10^3/uL (150-400); Red Cell Distribution Width 12.3 % (11.6-14.8); White Blood Cell Count 9.1 X10^3/uL (4.5-11.0)
[2023-09-25 10:31] LABS: Iron 109 ug/dL (37-170)
[2023-09-25 10:34] LABS: Albumin 4.4 g/dL (3.5-5.0); BUN Creatinine Ratio 28.1 (6-22); Blood Urea Nitrogen 47 mg/dL (7-17); Calcium 10.1 mg/dL (8.4-10.2); Carbon Dioxide 22 mmol/L (22-32); Chloride 108 mmol/L (98-107); Estimated Glomerular Filt Rate 31 mL/min (>60); Glucose 88 mg/dL (80-110); Sodium 137 mmol/L (137-145)
[2023-09-25 10:37] LABS: HEMOLYSIS 56 (0-50); Potassium 5.4 mmol/L (3.4-5.1)
[2023-09-25 10:39] LABS: HEMOLYSIS 61 (0-50)
[2023-09-25 10:42] LABS: Percent Iron Saturation 44 % (15-50); Total Iron Binding Capacity 250 ug/dL (265-497); Transferrin 203 mg/dL (206-381)
[2023-09-25 10:47] LABS: Vitamin D 25 Hydroxy (D3) 87.3 ng/mL (30.0-100.0)
[2023-09-25 11:06] LABS: Ferritin 378 ng/mL (11-264)
[2023-09-25 12:31] LABS: Microalbumin Urine Random 6.2 mg/dL (0-1.6)
[2023-09-25 12:33] LABS: Creatinine Urine Random 135.37 mg/dL; Protein (Total) Urine Random 15 mg/dL (0-12); Protein Creatinine Ratio Urine 0.11 GRAM/24H
== END ==
PROVIDERS: Family Provider Family Medicine; PCP Family Medicine; Referring Provider Internal Medicine Nephrology; Visit Provider Internal Medicine Nephrology
DX: I12.9 Hypertensive chronic kidney disease with stage 1 through stage 4 chronic kidney disease, or unspecified chronic kidney disease (principal); N18.32 Chronic kidney disease, stage 3b
CPT/HCPCS: 36415; 80069; 82043; 82306; 82570; 82728; 83540; 83550; 83970; 84156; 85025

== ENCOUNTER → 2023-10-01 09:35 | Outpatient (CLI) | payer MEDICARE, OTHER, SELFPAY ==
[2023-09-24 15:25] VITALS: BMI 24.7
[2023-10-02 08:36] LABS: Parathyroid Hormone Int 52 pg/mL (15-65)
== END ==
PROVIDERS: Family Provider Family Medicine; PCP Family Medicine; Referring Provider Internal Medicine Nephrology; Visit Provider Internal Medicine Nephrology
DX: I12.9 Hypertensive chronic kidney disease with stage 1 through stage 4 chronic kidney disease, or unspecified chronic kidney disease (principal); N18.32 Chronic kidney disease, stage 3b
CPT/HCPCS: 36415; 83970

== ENCOUNTER → 2023-11-01 19:11 | Outpatient (CLI) | payer MEDICARE, OTHER, SELFPAY ==
[2023-09-24 15:25] VITALS: BMI 24.7
--- NOTE | 2023-11-01 19:12 | DI.MRI.S_ITS ---
PROCEDURE: MR KNEE RT WO CON INDICATIONS: fall 3 wks ago; suspect torn cartilage TECHNIQUE: Noncontrast sagittal PD fast spin echo and T2 fast spin echo with fat saturation, sagittal 3-D FLASH with fat saturation; coronal T1 spin echo and PD fast spin echo with fat saturation, and axial PD fast spin echo with fat saturation through the knee. COMPARISON: None. FINDINGS: Image quality: Limited evaluation given patient motion. Menisci: In the medial meniscus, there is horizontal longitudinal tear of the posterior horn, and complex tear of the meniscus body. There is mild extrusion of the medial meniscus body with a small meniscus flap extending into the inferior gutter.. The posterior root of the lateral meniscus is not well visualized. There is complex tear of the posterior horn of the lateral meniscus, extending to the meniscus body. Mild extrusion of the lateral meniscus body. Cruciate ligaments: The proximal ACL is not well visualized, but is likely intact. The PCL is intact. Medial structures: The medial collateral ligament appears intact. The posterior oblique ligament, semimembranosus tendon insertions, oblique popliteal ligament, and meniscocapsular junction appear intact. Visualized portions of the pes anserinus tendons appear normal. No abnormal bursal fluid. Lateral structures: The lateral collateral ligament, long and short heads of the biceps femoris tendon appear intact. The popliteus tendon appears normal; the popliteofibular ligament appears intact. The posterosuperior and anteroinferior popliteomeniscal fascicles appear intact. The arcuate and fabellofibular ligaments appear intact, on either side of the lateral inferior geniculate artery. Iliotibial band appears normal. Anterior structures: Mild tendinosis distal quadriceps tendon. The patellar tendon is unremarkable. The patellofemoral ligaments are intact. Bones and cartilage: In the medial compartment, there is mild chondral irregularity of the posterior weight-bearing portion in the anterior nonweightbearing portion of the femoral condyle. There is high-grade chondral thinning of the tmedial compartment predominant tricompartment osteoarthritisibial plateau. Mild marrow edema of the posterior medial tibial plateau, which may be degenerative versus mild marrow contusion. In the lateral compartment, there is large area of full-thickness chondral denudation at the posterior weight-bearing portion of the femoral condyle and the anterior nonweightbearing portion of the femoral condyle, with moderate subchondral marrow edema. There is chondral denudation of the lateral tibial plateau with moderate subchondral marrow edema. Mild marrow contusion of the fibular head. Cartilage of the patellofemoral compartment are well maintained. Joint space: Moderate knee effusion. Subcentimeter intra-articular body in the posterior medial knee (series 5, image 17). No popliteal cyst. Mild subcutaneous edema of the anterior and lateral knee. IMPRESSION: 1. Extensive tear of the medial and lateral meniscus. 2. The proximal ACL is not well visualized, but is likely intact. Recommend correlation with physical exam. 3. Severe, lateral compartment predominant chondrosis with moderate subchondral reactive marrow edema. 4. Marrow edema versus mild marrow contusion of the posterior medial tibial plateau. Mild marrow contusion of the fibular head. No acute fracture. 5. Moderate knee effusion. Dictated by: Bridgette Juares M.D. on 11/04/2023 at 10:51 Approved by: Bridgette Juares M.D. on 11/04/2023 at 11:05
== END ==
PROVIDERS: Family Provider Family Medicine; PCP Family Medicine; Referring Provider Physician Assistant; Visit Provider Physician Assistant
DX: S83.231A Complex tear of medial meniscus, current injury, right knee, initial encounter (principal); S83.271A Complex tear of lateral meniscus, current injury, right knee, initial encounter; M94.261 Chondromalacia, right knee; S80.01XA Contusion of right knee, initial encounter; M23.91 Unspecified internal derangement of right knee; M25.461 Effusion, right knee
CPT/HCPCS: 73721

== ENCOUNTER → 2023-12-23 12:12 | Outpatient (CLI) | payer MEDICARE, OTHER, SELFPAY ==
[2023-09-24 15:25] VITALS: BMI 24.7
[2023-12-23 12:51] LABS: Add Manual Diff / Slide Review NO; Basophils Absolute Auto 0 /uL (0-100); Basophils Percent Auto 0.5 % (0-2); Eosinophils Absolute Auto 200 /uL (0-450); Eosinophils Percent Auto 1.9 % (2-4); Hematocrit 30.7 % (36-46); Hemoglobin 10.5 g/dL (12.0-16.0); Lymphocytes Absolute Auto 1000 /uL (1100-4500); Lymphocytes Percent Auto 12.2 % (25-40); Mean Corpuscular HGB Conc 34.1 % (30-36); Mean Corpuscular Hemoglobin 32.3 PG (26-34); Mean Corpuscular Volume 94.7 fL (80-100); Monocytes Absolute Auto 500 /uL (0-900); Monocytes Percent Auto 6.6 % (3-14); Neutrophils Absolute Auto 6600 /uL (1500-7000); Neutrophils Percent Auto 78.8 % (50-75); Platelet Count 277 X10^3/uL (150-400); Red Blood Cell Count 3.24 X10^6/uL (4.0-5.2); Red Cell Distribution Width 12.6 % (11.6-14.8); White Blood Cell Count 8.3 X10^3/uL (4.5-11.0)
[2023-12-23 13:08] LABS: HEMOLYSIS < 15 (0-50)
[2023-12-23 13:17] LABS: Alanine Aminotransferase 36 IU/L (<35); Albumin 4.4 g/dL (3.5-5.0); Albumin Globulin Ratio 1.3 (1.0-2.8); Alkaline Phosphatase 74 U/L (38-126); Aspartate Aminotransferase 29 IU/L (14-36); Bilirubin Total 0.5 mg/dL (0.2-1.3); Blood Urea Nitrogen 31 mg/dL (7-17); Calcium 10.6 mg/dL (8.4-10.2); Carbon Dioxide 24 mmol/L (22-32); Chloride 105 mmol/L (98-107); Estimated Glomerular Filt Rate 30 mL/min (>60); Globulin 3.3 g/dL (1.7-4.1); Glucose 121 mg/dL (80-110); Potassium 4.5 mmol/L (3.4-5.1); Sodium 136 mmol/L (137-145); Total Protein 7.7 g/dL (6.3-8.2)
[2023-12-23 14:49] LABS: Vitamin B12 525 pg/mL (239-931)
[2023-12-23 17:52] LABS: Creatinine Urine Random 26.62 mg/dL
[2023-12-23 18:09] LABS: Microalbumin Urine Random 23.1 mg/dL (0-1.6)
== END ==
PROVIDERS: Family Provider Family Medicine; PCP Family Medicine; Referring Provider Family Medicine; Visit Provider Family Medicine
DX: E78.5 Hyperlipidemia, unspecified (principal); I10 Essential (primary) hypertension; R00.1 Bradycardia, unspecified; E03.9 Hypothyroidism, unspecified
CPT/HCPCS: 36415; 80053; 82043; 82570; 82607; 85025

== ENCOUNTER → 2023-12-27 10:24 | Outpatient (CLI) | payer MEDICARE, OTHER, SELFPAY ==
[2023-12-25 09:57] VITALS: BMI 24.7
--- NOTE | 2023-12-27 10:26 | DI.RAD.S_ITS ---
PROCEDURE: XR CHEST 2V INDICATIONS: eval chronic cough TECHNIQUE: 2 views of the chest were acquired. COMPARISON: [facility], CR, XR CHEST 1V, 09/23/2021, 10:51. FINDINGS: Surgical changes and devices: None. Lungs and pleura: There is no focal infiltrate. Stable nodular density projecting in right midlung field is again seen consistent with patient's known calcified granuloma in this area seen on previous CT angiogram of chest study in 2020. No pleural effusions or pneumothorax. Mediastinum: Mediastinal contours are normal. Heart size is normal. Bones and chest wall: No suspicious bony abnormalities. Soft tissues appear unremarkable. IMPRESSION: No acute cardiopulmonary pathology. Dictated by: Reno Fuller M.D. on 12/27/2023 at 13:32 Approved by: Reno Fuller M.D. on 12/27/2023 at 13:33
== END ==
LOC: RAD 10:25
PROVIDERS: Family Provider Family Medicine; PCP Family Medicine; Referring Provider Family Medicine; Visit Provider Family Medicine
DX: R05.3 Chronic cough (principal)
CPT/HCPCS: 71046

== ENCOUNTER 2024-01-14 08:39 | Emergency (ER) | payer MEDICARE, OTHER, SELFPAY ==
[2023-12-25 09:57] VITALS: BMI 24.7
[2024-01-14] VITALS (9 sets, daily range): BP systolic 173–209; BP diastolic 71–79; PULSE 52–81; RESP 13–42; TEMP 36.6; O2SAT 99–100; BMI 25.5
--- NOTE | 2024-01-14 08:48 | EKG_ITS ---
[address] [address] Test Date: 2024-01-14 Pat Name: Heather Walker Department: Room: Gender: Female [employer] Supervisor: : 1945 Requested By: Order Number: [id number] Reading MD: Andrea Abraham MD Measurements Intervals [place] Rate: 63 P: 46 MA: 202 QRS: 14 QRSD: 84 T: 15 QT: 390 QTc: 399 Interpretive Statements Normal sinus rhythm Electronically Signed On 01-15-2024 7:48:25 PDT by Andrea Abraham MD
--- NOTE | 2024-01-14 08:55 | EKG_ITS ---
[place] [id number] [place] [id number] Test Date: 2024-01-14 Pat Name: Heather Walker Department: [facility] Room: Gender: Female Line Director: SHAZIA : 1945 Requested By: Order Number: [id number] Reading MD: Andrea Abraham MD Measurements Intervals [place] Rate: 55 P: 55 CT: 214 QRS: 3 QRSD: 86 T: -6 QT: 432 QTc: 413 Interpretive Statements Sinus bradycardia with 1st degree AV block Electronically Signed On 01-14-2024 12:05:45 PDT by Andrea Abraham MD
--- NOTE | 2024-01-14 08:55 | DI.RAD.S_ITS ---
PROCEDURE: XR CHEST 1V INDICATIONS: chest pain TECHNIQUE: One view of the chest was acquired. COMPARISON: [facility], CR, XR CHEST 2V, 12/27/2023, 9:32. FINDINGS: Surgical changes and devices: None. Lungs and pleura: Lungs are clear. No pleural effusions or pneumothorax. Mediastinum: Mediastinal contours appear normal. Heart size is normal. Bones and chest wall: No suspicious bony lesions. Overlying soft tissues appear unremarkable. IMPRESSION: No acute pulmonary process. Dictated by: Cori Lynn M.D. on 01/14/2024 at 9:21 Approved by: Cori Lynn M.D. on 01/14/2024 at 9:21
[2024-01-14 09:08] LABS: Add Manual Diff / Slide Review NO; Basophils Absolute Auto 0 /uL (0-100); Basophils Percent Auto 0.4 % (0-2); Eosinophils Absolute Auto 100 /uL (0-450); Eosinophils Percent Auto 1.2 % (2-4); Hematocrit 38.1 % (36-46); Hemoglobin 12.7 g/dL (12.0-16.0); Lymphocytes Absolute Auto 800 /uL (1100-4500); Lymphocytes Percent Auto 9.4 % (25-40); Mean Corpuscular HGB Conc 33.2 % (30-36); Mean Corpuscular Hemoglobin 31.6 PG (26-34); Mean Corpuscular Volume 95.1 fL (80-100); Monocytes Absolute Auto 600 /uL (0-900); Monocytes Percent Auto 6.8 % (3-14); Neutrophils Absolute Auto 6900 /uL (1500-7000); Neutrophils Percent Auto 82.2 % (50-75); Platelet Count 252 X10^3/uL (150-400); Red Blood Cell Count 4.01 X10^6/uL (4.0-5.2); Red Cell Distribution Width 12.9 % (11.6-14.8); White Blood Cell Count 8.4 X10^3/uL (4.5-11.0)
[2024-01-14] MEDS: ASPIRIN 81 MG CHEW TAB 324 MG PO (09:13)
[2024-01-14 09:21] LABS: PTT Partial Thromboplastin Tim 31 SECONDS (25.1-36.5)
--- NOTE | 2024-01-14 09:23 | ED_ITS ---
HPI - Chest Pain General Chief Complaint: Chest Pain Stated Complaint: chest pain Time Seen by Provider: 01/14/24 08:49 Source: patient Mode of arrival: Wheelchair Limitations: no limitations History of Present Illness HPI narrative: 78-year-old female with history of CAD, status post heart attack last month Dec 2023 while [place] [facility] [place] [employer] [employer] [facility] [employer] [facility], presented to the emergency department at [facility] on 12/16/2023, was transferred to [facility] where she had two coronary vessels that were stented by interventionalist Dr. Foster, with inpatient consultation cardiology by Dr. Cisse, recalls there was a 3rd vessel that could not be stented that is being medically managed, was switched from Xarelto that she was taking due to blood clots in arm and leg to oral regimen of Brilinta antiplatelet instead, saw [place] in clinic 2 weeks later, PRN sublingual nitroglycerin added, next Cardiology follow up appointment in [facility] 01/26/2024, she has not sure who she is seeing there. Complains of intermittent left anterior chest discomfort since last night, some associated nausea, no associated diaphoresis. No syncope or presyncope symptoms. No lower extremity pain. No upper extremity pain. Also no radiation to left jaw or neck or scapula or back. She is still taking her Brilinta medication, here for further evaluation of intermittent chest discomfort. Related Data Home Medications Medication Instructions Recorded Confirmed multivitamin-iron 9 mg-folic acid 1 tab PO Q DAY ##0 03/20/11 12/27/23 400 mcg-calcium and minerals tablet (Thera M Plus (ferrous fumarate)) ferrous sulfate 325 mg (65 mg 325 mg PO DAILY 03/19/18 12/27/23 iron) tablet aspirin 81 mg tablet,delayed 81 mg PO DAILY 06/20/20 12/27/23 release (Adult Low Dose Aspirin) carvedilol 3.125 mg tablet 3.125 mg PO BID 12/27/23 12/27/23 rosuvastatin 10 mg tablet 10 mg PO ONCE PM 12/27/23 12/27/23 ticagrelor 90 mg tablet (Brilinta) 90 mg PO BID 12/27/23 12/27/23 Previous Rx's Medication Instructions Recorded disabled parking permit #1 ea 10/06/19 levothyroxine 88 mcg tablet 88 mcg PO DAILY #90 tabs 04/11/23 amlodipine 5 mg tablet See Rx Instructions .Route 05/06/23 .COMPLEX #90 tabs mecobalamin (vitamin B12) 10,000 1,000 mcg IM QMONTH #1 ea 09/25/23 mcg solution for injection tizanidine 2 mg tablet 2 mg PO 3XD PRN for muscle spasm 10/07/23 #270 tabs albuterol sulfate 90 mcg/actuation 2 puff inhalation Q6H PRN 12/27/23 aerosol inhaler shortness of breath or wheezing #8.5 grams isosorbide mononitrate 30 mg 30 mg PO DAILY #30 tabs 01/14/24 tablet,extended release 24 hr Allergies Allergy/AdvReac Type Severity Reaction Status Date / Time tramadol Allergy Severe Anaphylaxis Verified 12/27/23 09:47 hydrocodone [HYDROCODONE] Allergy Intermediate NAUSEA / Verified 12/27/23 09:47 VOMITING Sulfa (Sulfonamide Allergy Mild Hives Verified 12/27/23 09:47 Antibiotics) [SULFA (SULFONAMIDE ANTIBIOTICS)] fentanyl AdvReac Severe Vomiting Verified 12/27/23 09:47 morphine [MORPHINE] AdvReac Mild Vomiting Verified 12/27/23 09:47 OPITATES Allergy Intermediate Gastrointestinal Uncoded 12/27/23 09:47 Upset Review of Systems Review of Systems Narrative: see HPI Patient History Medical History Chronic cough History of myocardial infarction Anemia Medicare annual wellness visit, subsequent Encounter for wellness examination in adult Cellulitis Eczema Trochanteric bursitis, left hip Diverticulosis Well adult exam Breast cyst Carotid stenosis Breast nodule Pulmonary nodules Chronic headache Hyperlipidemia Hyperparathyroidism Chronic kidney disease Paresthesia of left upper extremity Facet arthropathy, lumbosacral Pruritic rash Chronic anticoagulation Foraminal stenosis of cervical region Headache Fractures (~1977) Acne Mumps (~1953) Measles (~1953) Chicken pox (~194) Cataracts, bilateral (~2013) Hypertension (~1999) Facial abrasion (~10/07/19) Surgical History History of heart artery stent Anesthesia Status post tonsillectomy and adenoidectomy Status post appendectomy Status post tubal ligation Status post dilation and curettage History of cataract removal with insertion of prosthetic lens (~2013) Family History Father Cancer Grandfather Heart disease Grandmother Stroke Mother Cancer Brother No problems noted. Grandfather No problems noted. Grandmother No problems noted. Social History household members: none Smoking Status: Never smoker alcohol intake: never substance use type: does not use Smoking Status: Never smoker alcohol intake frequency: a few times a month Substance Use Type: does not use Exam Narrative Exam Narrative: GENERAL: Well-developed patient, in mild distress. HEAD: Atraumatic. Normocephalic. EYES: Pupils equal round and reactive. Extraocular motions intact. No scleral icterus. No injection or drainage. ENT: Nose without bleeding, purulent drainage. Throat without erythema, tonsillar hypertrophy or exudate. Airway patent. NECK: Trachea midline. Non tender CARDIOVASCULAR: Regular rate and rhythm without murmurs, gallops, or rubs. RESPIRATORY: Clear to auscultation. Breath sounds equal bilaterally. No wheezes, rales, or rhonchi. GASTROINTESTINAL: Abdomen soft, non-tender, nondistended. EXTREMITIES: No edema or joint tenderness. BACK: Nontender without deformity or crepitance. No flank tenderness. NEURO: AOx3. Motor functions grossly nonfocal SKIN: No rash or erythema of visible areas Initial Vital Signs Initial Vital Signs: Vital Signs Pulse Rate 63 01/14/24 08:50 Respiratory Rate 42 H 01/14/24 08:50 Pulse Oximetry 100 01/14/24 08:50 Course Orders Ordered: ED Orders 01/14/24 11:10 Troponin I Stat Discontinued Medications Aspirin (Aspirin 81 Mg Chew Tab) 324 mg PO NOW ONE Stop: 01/14/24 08:55 Last Admin: 01/14/24 09:13 Dose: 243 mg Documented By: Isosorbide Mononitrate (Isosorbide Mononitrate Er 30 Mg Tablet) 30 mg PO NOW ONE Stop: 01/14/24 09:59 Last Admin: 01/14/24 10:22 Dose: 30 mg Documented By: Vital Signs Vital signs: Vital Signs - 8 hr 01/14/24 12:00 Pulse Rate 52 L Blood Pressure 175/74 H Pulse Oximetry 99 Oxygen Delivery Method Room Air MDM - Chest Pain Lab Data Attestation: I reviewed the patient's lab results. Lab results narrative: Creatinine elevation 1.5 with BUN 33 noted, otherwise BNP unremarkable. CBC unremarkable. BNP 854 elevated mildly. Initial troponin negative nonmeasurable. 01/14/24 08:59 01/14/24 08:59 Labs: Lab Results 01/14/24 01/14/24 Range/Units 08:59 11:10 WBC 8.4 (4.5-11.0) X10^3/uL RBC 4.01 (4.0-5.2) X10^6/uL Hgb 12.7 (12.0-16.0) g/dL Hct 38.1 (36-46) % MCV 95.1 (80-100) fL MCH 31.6 (26-34) PG MCHC 33.2 (30-36) % RDW 12.9 (11.6-14.8) % Plt Count 252 (150-400) X10^3/uL Neut % (Auto) 82.2 H (50-75) % Lymph % (Auto) 9.4 L (25-40) % [place] % (Auto) 6.8 (3-14) % Eos % (Auto) 1.2 L (2-4) % Baso % (Auto) 0.4 (0-2) % Neut # (Auto) 6900 (2625-8363) /uL Lymph # (Auto) 800 L (0707-7488) /uL [place] # (Auto) 600 (0-900) /uL Eos # (Auto) 100 (0-450) /uL Baso # (Auto) 0 (0-100) /uL PT 11.0 (9.4-12.5) SECONDS INR 1.0 (0.9-1.3) APTT 31 (25.1-36.5) SECONDS Sodium 140 (137-145) mmol/L Potassium 4.4 (3.4-5.1) mmol/L Chloride 106 (98-107) mmol/L Carbon Dioxide 23 (22-32) mmol/L BUN 33 H (7-17) mg/dL Creatinine 1.50 H (0.52-1.04) mg/dL Estimated GFR 35 L (>60) mL/min BUN/Creatinine Ratio 22.0 (6-22) Glucose 102 (80-110) mg/dL Calcium 11.0 H (8.4-10.2) mg/dL Magnesium 2.0 (1.6-2.3) mg/dL Total Bilirubin 0.6 (0.2-1.3) mg/dL AST 25 (14-36) IU/L ALT 20 (<35) IU/L Alkaline Phosphatase 76 (38-126) U/L Total Creatine Kinase 63 (30-135) U/L Troponin I < 0.012 < 0.012 (0.01-0.034) ng/mL NT-Pro-B Natriuret Pep 854 H (<450) pg/mL Total Protein 8.2 (6.3-8.2) g/dL Albumin 4.8 (3.5-5.0) g/dL Globulin 3.4 (1.7-4.1) g/dL Albumin/Globulin Ratio 1.4 (1.0-2.8) Lipase 183 (23-300) U/L Imaging Data Chest x-ray: Radiologist's Impression: [address] [address] XRay Report Signed Patient: Heather Walker MR#: [id number] : 1945 Acct:[id number] Age/Sex: 78 / F Date of Service: 01/14/24 Loc: ED Accession Number: [id number] Procedure: XR chest 1V Ordering Provider: Rodrigue Gomez MD PROCEDURE: XR CHEST 1V INDICATIONS: chest pain TECHNIQUE: One view of the chest was acquired. COMPARISON: [facility], , XR CHEST 2V, 12/27/2023, 9:32. FINDINGS: Surgical changes and devices: None. Lungs and pleura: Lungs are clear. No pleural effusions or pneumothorax. Mediastinum: Mediastinal contours appear normal. Heart size is normal. Bones and chest wall: No suspicious bony lesions. Overlying soft tissues appear unremarkable. IMPRESSION: No acute pulmonary process. Dictated by: Cori Lynn M.D. on 01/14/2024 at 9:21 Approved by: Cori Lynn M.D. on 01/14/2024 at 9:21 ECG Data Attestation: I personally reviewed and interpreted this ECG as follows: Interpretation: Normal sinus rhythm with rate of 63, no obvious ST segment elevation or depression. Some artifact changes noted. AK 202, QRS 84, QTC 399. repeat study 1155, sinus bradycardia with rate 55, first-degree AV block, AK 214, QRS 86, QTC 413. No obvious ST segment elevation or depression changes. MDM Narrative Medical decision making narrative: 78-year-old female with history of sent coronary stenting last month at [facility], 2 vessels stented, apparently a 3rd vessel of concern could not be stented, medically managed. Switched from Xarelto to Brilinta at discharge, uses sublingual nitroglycerin, intermittent chest discomfort since yesterday. Brief twinge left anterior discomfort after triage here resolved without specific treatment. Some associated nausea. Normotensive. Afebrile, sirs screen negative. Initial screening EKG unremarkable. Labs pending including troponin. Chest x-ray pending. Chest x-ray unremarkable, see radiology report. Initial troponin negative, we will repeat interval troponin. She is allergic to morphine. Systolic blood pressure 180 noted, we will give Isordil-ER 30 mg dose oral. Await results repeat troponin, consider discharge on long-acting oral nitrate, coordinate with [facility] Dr. Holloway/aiden. No records from [facility] received thus far. Interval troponin pending Repeat troponin also negative. Consult [facility]iology Clinic [facility], not on-call but we will attempt consult with them, as patient is due to see them in 12 days. No call back from [facility], patient prefers to leave now, we will discharge patient on Isordil 30 mg daily for now, she will further contact [facility] Dr Acevedo to see if her scheduled follow-up appointment needs to be moved up. Return precautions discussed. Discharge Plan Departure Patient Disposition: Home Clinical Impression: Chest pain Activity Restrictions/Additional Instructions: History of recent reported heart attack December 2023, heart cath done at [facility] by your report, you relayed stenting of to coronary vessels, apparently there was a 3rd vessel of concern not able to be stented, medical management advised. You were seen a couple of weeks postprocedure by provider, given sublingual nitroglycerin, taking your postprocedure Brilinta, having been discontinued off his Xarelto anticoagulation. Now with intermittent anterior chest discomfort. Screening EKG without obvious heart attack changes. Serial blood tests did not show evidence of heart attack. Long-acting oral nitroglycerin isosorbide started, continue this medication until seen by your residential real estate agent. We attempted calling the office of Cardiology at [facility], where Dr. Cisse/Amie work, no call back. We will discharge on long-acting oral nitroglycerin for now, further medical therapy. Contact your cardiology office later today to see if 01/26/24 appointment should be moved up earlier. Return earlier to this/nearest emergency department for any change worsening symptoms or any concerns prior Prescriptions: New isosorbide mononitrate 30 mg tablet extended release 24 hr 30 mg PO DAILY Qty: 30 0RF No Action Thera M Plus (ferrous fumarat) 1 EACH tablet 1 tab PO Q DAY Qty: 0 levothyroxine 88 mcg tablet 88 mcg PO DAILY Qty: 90 3RF amlodipine 5 mg tablet See Rx Instructions .ROUTE .COMPLEX Qty: 90 3RF Dose Instruction: TAKE 1 TABLET BY MOUTH AT BEDTIME Rx Instructions: TAKE 1 TABLET BY MOUTH AT BEDTIME tizanidine 2 mg tablet 2 mg PO 3XD PRN (Reason: for muscle spasm) Qty: 270 0RF Rx Instructions: PLEASE TELL PT NEEDS APPT TO KEEP FILLING THIS MEDICATION (DME) disabled parking permit See Rx Instructions .ROUTE .MEDSUPPLY Qty: 1 0RF Rx Instructions: As directed. patient qualifies for disabled parking as per attached form. aspirin [Adult Low Dose Aspirin] 81 mg tablet,delayed release (DR/EC) 81 mg PO DAILY mecobalamin (vitamin B12) 10,000 mcg recon soln 1,000 mcg IM QMONTH Qty: 1 2RF Rx Instructions: 1,000 mcg per month. started on 09/24 - end in November. Labs after in December cyanocobalamin (vitamin B-12) 1,000 mcg/mL solution 1,000 mcg IM ONCE Qty: 1000 0RF albuterol sulfate 90 mcg/actuation HFA aerosol inhaler 2 puff inhalation Q6H PRN (Reason: shortness of breath or wheezing) Qty: 8.5 1RF carvedilol 3.125 mg tablet 3.125 mg PO BID rosuvastatin 10 mg tablet 10 mg PO ONCE PM Brilinta 90 mg tablet 90 mg PO BID ferrous sulfate 325 mg (65 mg iron) tablet 325 mg PO DAILY Referrals: Aaron Holloway MD [Physician] - Davide Cisse MD [Non-Staff] - Zaki Gerber DO [Primary Care Provider] - Stand Alone Forms: Patient Portal/API
[2024-01-14 09:27] LABS: Alanine Aminotransferase 20 IU/L (<35); Albumin 4.8 g/dL (3.5-5.0); Albumin Globulin Ratio 1.4 (1.0-2.8); Alkaline Phosphatase 76 U/L (38-126); Aspartate Aminotransferase 25 IU/L (14-36); Bilirubin Total 0.6 mg/dL (0.2-1.3); Blood Urea Nitrogen 33 mg/dL (7-17); Carbon Dioxide 23 mmol/L (22-32); Chloride 106 mmol/L (98-107); Creatine Kinase 63 U/L (30-135); Estimated Glomerular Filt Rate 35 mL/min (>60); Globulin 3.4 g/dL (1.7-4.1); Glucose 102 mg/dL (80-110); HEMOLYSIS < 15 (0-50); Lipase 183 U/L (23-300); Potassium 4.4 mmol/L (3.4-5.1); Sodium 140 mmol/L (137-145); Total Protein 8.2 g/dL (6.3-8.2)
[2024-01-14 09:39] LABS: NT-proBNP (BNP-Adult 18+) 854 pg/mL (<450); Troponin I < 0.012 ng/mL (0.01-0.034)
[2024-01-14] MEDS: ISOSORBIDE MONONITRATE ER 30 MG TABLET PO (10:22)
[2024-01-14 11:51] LABS: Troponin I < 0.012 ng/mL (0.01-0.034)
== END 2024-01-14 12:34 | disposition home or self-care (01) ==
PROVIDERS: Emergency Provider Emergency Medicine; Family Provider Family Medicine; PCP Family Medicine
DX: R07.9 Chest pain, unspecified (principal); I25.2 Old myocardial infarction; Z95.5 Presence of coronary angioplasty implant and graft
CPT/HCPCS: 36415; 71045; 80053; 82550; 83690; 83735; 83880; 84484; 85025; 85610; 85730; 93005; 99284

== ENCOUNTER → 2024-01-22 13:31 | Outpatient (CLI) | payer MEDICARE, OTHER, SELFPAY ==
[2023-12-25 09:57] VITALS: BMI 24.7
[2024-01-22 14:46] LABS: Hematocrit 34.3 % (36-46); Hemoglobin 11.6 g/dL (12.0-16.0); Mean Corpuscular HGB Conc 33.9 % (30-36); Mean Corpuscular Volume 94.4 fL (80-100); Platelet Count 270 X10^3/uL (150-400); Red Blood Cell Count 3.63 X10^6/uL (4.0-5.2); Red Cell Distribution Width 12.8 % (11.6-14.8); White Blood Cell Count 10.3 X10^3/uL (4.5-11.0)
[2024-01-22 14:53] LABS: Appearance Urine UA CLEAR; Bilirubin Urine UA NEGATIVE (NEGATIVE); Color Urine UA YELLOW; Glucose Urine UA NEGATIVE (Negative); Ketones Urine UA NEGATIVE (NEGATIVE); Leukocyte Esterase Urine UA 1+ (NEGATIVE); Nitrite Urine UA NEGATIVE (Negative); Occult Blood Urine UA 3+ (Negative); Protein Urine UA TRACE (Negative); Urobilinogen Urine UA 0.2 E.U./dL (0.2)
[2024-01-22 14:56] LABS: Alanine Aminotransferase 17 IU/L (<35); Albumin 4.5 g/dL (3.5-5.0); Albumin Globulin Ratio 1.7 (1.0-2.8); Alkaline Phosphatase 77 U/L (38-126); Aspartate Aminotransferase 23 IU/L (14-36); BUN Creatinine Ratio 22.1 (6-22); Bilirubin Total 0.5 mg/dL (0.2-1.3); Blood Urea Nitrogen 31 mg/dL (7-17); Calcium 10.6 mg/dL (8.4-10.2); Carbon Dioxide 26 mmol/L (22-32); Chloride 100 mmol/L (98-107); Estimated Glomerular Filt Rate 39 mL/min (>60); Globulin 2.6 g/dL (1.7-4.1); Glucose 120 mg/dL (80-110); HEMOLYSIS 22 (0-50); HEMOLYSIS < 15 (0-50); Iron 43 ug/dL (37-170); Potassium 5.1 mmol/L (3.4-5.1); Sodium 136 mmol/L (137-145); Total Protein 7.1 g/dL (6.3-8.2)
[2024-01-22 14:59] LABS: Albumin 4.6 g/dL (3.5-5.0); BUN Creatinine Ratio 20.5 (6-22); Blood Urea Nitrogen 30 mg/dL (7-17); Calcium 10.6 mg/dL (8.4-10.2); Carbon Dioxide 27 mmol/L (22-32); Chloride 100 mmol/L (98-107); Estimated Glomerular Filt Rate 37 mL/min (>60); Glucose 118 mg/dL (80-110); HEMOLYSIS < 15 (0-50); Phosphorous 3.4 mg/dL (2.8-4.1); Potassium 4.9 mmol/L (3.4-5.1); Sodium 137 mmol/L (137-145)
[2024-01-22 15:00] LABS: pH Urine UA 5.5 (4.5-8.0)
[2024-01-22 15:04] LABS: Amorphous Sediment Urine 1+; Bacteria Urine Few (2-10); Culture Indicated Urine Specimen Cultured; RBC Urine 5-10/HPF (0-5/HPF); Renal Epithelial Cells Urine 0-1/HPF (0-1/HPF); Squamous Epithelial Cell Urine 1-5 /HPF (0-5/HPF); Urine Volume 10mL (spun); WBC Urine 10-30/HPF (0-5/HPF)
[2024-01-22 15:07] LABS: Percent Iron Saturation 16 % (15-50); Total Iron Binding Capacity 271 ug/dL (265-497); Transferrin 211 mg/dL (206-381)
[2024-01-22 15:29] LABS: Creatinine Urine Random 58.56 mg/dL; Protein (Total) Urine Random 34 mg/dL (0-12); Protein Creatinine Ratio Urine 0.58 GRAM/24H
[2024-01-22 15:32] LABS: Ferritin 427 ng/mL (11-264)
[2024-01-22 15:34] LABS: Microalbumin Urine Random 14.7 mg/dL (0-1.6)
[2024-01-22 15:42] LABS: Vitamin D 25 Hydroxy (D3) 62.2 ng/mL (30.0-100.0)
[2024-01-22 15:45] LABS: Vitamin B12 821 pg/mL (239-931)
== END ==
LOC: LAB 13:35
PROVIDERS: Family Provider Family Medicine; PCP Family Medicine; Referring Provider Internal Medicine Nephrology; Visit Provider Internal Medicine Nephrology
DX: I12.9 Hypertensive chronic kidney disease with stage 1 through stage 4 chronic kidney disease, or unspecified chronic kidney disease (principal); N18.32 Chronic kidney disease, stage 3b; G43.E09 Chronic migraine with aura, not intractable, without status migrainosus; D63.1 Anemia in chronic kidney disease; N18.30 Chronic kidney disease, stage 3 unspecified; D51.9 Vitamin B12 deficiency anemia, unspecified; E78.2 Mixed hyperlipidemia
CPT/HCPCS: 80053; 80069; 81001; 82043; 82306; 82570; 82607; 82728; 83540; 83550; 83970; 84156; 85027; 87077; 87086

== ENCOUNTER → 2024-01-28 11:11 | Outpatient (CLI) | payer MEDICARE, OTHER, SELFPAY ==
[2023-12-25 09:57] VITALS: BMI 24.7
--- NOTE | 2024-01-28 11:12 | DI.MG.S_ITS ---
BILATERAL DIGITAL SCREENING MAMMOGRAM 3D/2D WITH CAD: 01/28/2024 CLINICAL: Routine screening. Family history of breast cancer. Comparison is made to exams dated: 01/24/2023 mammogram, 01/12/2022 mammogram, 01/03/2021 mammogram, 12/15/2019 mammogram, 12/11/2018 mammogram, and 12/04/2017 mammogram - [facility]. The breasts are heterogeneously dense, which may obscure small masses (category c / 51-75% glandular tissue). Current study was also evaluated with a Computer Aided Detection (CAD) system. There are benign calcifications in both breasts. There also are benign post operative findings in the left breast. No significant masses, calcifications, or other findings are seen in either breast. There has been no significant interval change. IMPRESSION: BENIGN There is no mammographic evidence of malignancy. A 1 year screening mammogram is recommended. Based on the Tyrer Cuzick model (a risk assessment model) the patient's lifetime risk is 8.4% and her 10 year risk is 0.0%. According to the ACR, ACS, and NCCN guidelines, an annual breast MRI exam along with mammogram is recommended if the patient's lifetime risk is 20% or greater. This exam was interpreted at Station ID: [id number]. NOTE: For mammograms, a report in lay terms will be sent to the patient. Approximately 15% of breast malignancies will not be visualized mammographically. In the management of a palpable breast mass, a negative mammogram must not discourage biopsy of a clinically suspicious lesion. Electronically Signed By: Catia Poe M.D., Ph.D. gissell/iesha:01/29/2024 01:10:25 letter sent: Normal Exam ACR BI-RADS Category 2: Benign
== END ==
LOC: MAMMO 11:11
PROVIDERS: Family Provider Family Medicine; PCP Family Medicine; Referring Provider Family Medicine; Visit Provider Family Medicine
DX: Z12.31 Encounter for screening mammogram for malignant neoplasm of breast (principal); Z80.3 Family history of malignant neoplasm of breast; R92.333 Mammographic heterogeneous density, bilateral breasts
CPT/HCPCS: 77063; 77067

== ENCOUNTER 2024-01-29 09:31 | Emergency (ER) | payer MEDICARE, OTHER, SELFPAY ==
[2023-12-25 09:57] VITALS: BMI 24.7
[2024-01-29] VITALS (15 sets, daily range): BP systolic 137–192; BP diastolic 62–79; PULSE 53–68; RESP 20; TEMP 36.5; O2SAT 98–100; BMI 24.4
--- NOTE | 2024-01-29 09:46 | ED.GENADULT ---
HPI - General Adult General Chief complaint: Urogenital-Female Stated complaint: tested + for E.coli and uti, sent by pcp Time Seen by Provider: 01/29/24 09:41 History of Present Illness HPI narrative: 78-year-old woman with a recent NSTEMI with stents to the right coronary artery in December, chronic kidney disease, hypothyroidism was seen in her primary care doctor's office yesterday in follow up for kidney disease and her recent NSTEMI. As part of routine workup with a nephrology consultation on January 21 she gave a urine sample. This did grow 40K CFU of ruvalcaba sensitive E coli. She noted on the that she did have some cloudy urine a bit of dysuria this is not continued. She has having no flank pain. She was treated with ceftriaxone IM and started on ciprofloxacin after the office visit yesterday. She felt slightly better in the afternoon but returns today complaining that she is aching all over, has had fevers and chills, nausea but no vomiting. No diarrhea. After her recent STEMI she notes that she has been much more emotional and also notes that her memory seems to be worsening. She does not complain of chest pain, orthopnea, dyspnea, cough. She has had a headache but no other neurologic complaints. No lower extremity edema Related Data Home Medications Medication Instructions Recorded Confirmed multivitamin-iron 9 mg-folic acid 1 tab PO Q DAY ##0 03/20/11 01/28/24 400 mcg-calcium and minerals tablet (Thera M Plus (ferrous fumarate)) ferrous sulfate 325 mg (65 mg 325 mg PO DAILY 03/19/18 01/28/24 iron) tablet aspirin 81 mg tablet,delayed 81 mg PO DAILY 06/20/20 01/28/24 release (Adult Low Dose Aspirin) carvedilol 3.125 mg tablet 3.125 mg PO BID 12/27/23 01/28/24 rosuvastatin 10 mg tablet 10 mg PO ONCE PM 12/27/23 01/28/24 ticagrelor 90 mg tablet (Brilinta) 90 mg PO BID 12/27/23 01/28/24 Previous Rx's Medication Instructions Recorded disabled parking permit #1 ea 10/06/19 amlodipine 5 mg tablet See Rx Instructions .Route 05/06/23 .COMPLEX #90 tabs mecobalamin (vitamin B12) 10,000 1,000 mcg IM QMONTH #1 ea 09/25/23 mcg solution for injection tizanidine 2 mg tablet 2 mg PO 3XD PRN for muscle spasm 10/07/23 #270 tabs albuterol sulfate 90 mcg/actuation 2 puff inhalation Q6H PRN 12/27/23 aerosol inhaler shortness of breath or wheezing #8.5 grams isosorbide mononitrate 30 mg 30 mg PO DAILY #30 tabs 01/14/24 tablet,extended release 24 hr levothyroxine 88 mcg tablet 88 mcg PO DAILY #90 tabs 01/15/24 ciprofloxacin HCl 250 mg tablet 250 mg PO BID #6 tabs 01/28/24 citalopram 10 mg tablet 10 mg PO DAILY #30 tabs 01/29/24 Allergies Allergy/AdvReac Type Severity Reaction Status Date / Time tramadol Allergy Severe Anaphylaxis Verified 01/28/24 10:00 hydrocodone [HYDROCODONE] Allergy Intermediate NAUSEA / Verified 01/28/24 10:00 VOMITING Sulfa (Sulfonamide Allergy Mild Hives Verified 01/28/24 10:00 Antibiotics) [SULFA (SULFONAMIDE ANTIBIOTICS)] fentanyl AdvReac Severe Vomiting Verified 01/28/24 10:00 morphine [MORPHINE] AdvReac Mild Vomiting Verified 01/28/24 10:00 OPITATES Allergy Intermediate Gastrointestinal Uncoded 01/28/24 10:00 Upset Review of Systems Constitutional Comments: Pertinent positive and negative findings as per HPI Patient History Medical History Acute cystitis with positive culture Chronic cough History of myocardial infarction Anemia Medicare annual wellness visit, subsequent Encounter for wellness examination in adult Cellulitis Eczema Trochanteric bursitis, left hip Diverticulosis Well adult exam Breast cyst Carotid stenosis Breast nodule Pulmonary nodules Chronic headache Hyperlipidemia Hyperparathyroidism Chronic kidney disease Paresthesia of left upper extremity Facet arthropathy, lumbosacral Pruritic rash Chronic anticoagulation Foraminal stenosis of cervical region Headache Fractures (~1977) Acne Mumps (~1953) Measles (~1953) Chicken pox (~194) Cataracts, bilateral (~2013) Hypertension (~1999) Facial abrasion (~10/07/19) Surgical History History of heart artery stent Anesthesia Status post tonsillectomy and adenoidectomy Status post appendectomy Status post tubal ligation Status post dilation and curettage History of cataract removal with insertion of prosthetic lens (~2013) Family History Father Cancer Grandfather Heart disease Grandmother Stroke Mother Cancer Brother No problems noted. Grandfather No problems noted. Grandmother No problems noted. Social History household members: none Smoking Status: Never smoker alcohol intake: never substance use type: does not use Smoking Status: Never smoker alcohol intake frequency: a few times a month Substance Use Type: does not use Exam Initial Vital Signs Initial Vital Signs: Vital Signs Pulse Rate 68 01/29/24 09:40 Blood Pressure 137/62 01/29/24 09:40 Pulse Oximetry 99 01/29/24 09:40 General: Emotional on looks like she does not feel well but she has certainly not toxic in his able to completely cooperate with exam and history HEENT: Moist mucous membranes, normal sclera with reactive pupils, Neck: No JVD, supple Respiratory: Lungs are clear to auscultation, no wheezing no rales no rhonchi. Full and symmetrical air movement Cardiac: Regular rate and rhythm no murmurs no bruits Abdomen: Soft, nontender, good bowel tones, no flank pain Skin: Warm and dry, no rashes Neurologic: Grossly neurologically intact with no obvious asymmetries or abnormalities Extremities: No trauma, well perfused Psych: Cooperative, appropriate insight and affect Course Orders Ordered: ED Orders 01/29/24 09:44 Covid-19 + FLU A/B + RSV - PCR Stat 01/29/24 10:18 Complete Blood Count AUTO DIFF Stat Comprehensive Metabolic Panel Stat Magnesium Stat 01/29/24 11:36 Urinalysis and Microscopic Stat Discontinued Medications Sodium Chloride (Normal Saline 0.9%) 1,000 mls @ 1,000 mls/hr IV BOLUS ONE Stop: 01/29/24 11:05 Last Infusion: 01/29/24 11:27 Dose: Infused Documented By: Admin: 01/29/24 10:25 Dose: 1,000 mls/hr Documented By: VALENTINO Ondansetron HCl (Ondansetron 4 Mg/2 Ml Inj) 4 mg IV NOW ONE Stop: 01/29/24 10:07 Last Admin: 01/29/24 10:25 Dose: 4 mg Documented By: MPO Vital Signs Vital signs: Vital Signs - 8 hr 01/29/24 09:40 01/29/24 09:40 01/29/24 09:46 Temperature 97.7 F Pulse Rate 68 61 Respiratory Rate 20 Blood Pressure 137/62 137/62 Pulse Oximetry 99 100 Oxygen Delivery Method Room Air 01/29/24 10:00 01/29/24 10:30 01/29/24 10:31 Temperature Pulse Rate 59 L 57 L 55 L Respiratory Rate Blood Pressure Pulse Oximetry 100 100 100 Oxygen Delivery Method 01/29/24 10:31 01/29/24 11:00 01/29/24 11:01 Temperature Pulse Rate 55 L Respiratory Rate Blood Pressure 155/69 H 192/79 H Pulse Oximetry 98 Oxygen Delivery Method 01/29/24 11:01 Temperature Pulse Rate 54 L Respiratory Rate Blood Pressure Pulse Oximetry 99 Oxygen Delivery Method Medical Decision Making Lab Data 01/29/24 10:18 01/29/24 10:18 Labs: Lab Results 01/29/24 01/29/24 01/29/24 Range/Units 09:44 10:18 11:36 WBC 8.3 (4.5-11.0) X10^3/uL RBC 3.85 L (4.0-5.2) X10^6/uL Hgb 12.1 (12.0-16.0) g/dL Hct 36.6 (36-46) % MCV 94.9 (80-100) fL MCH 31.5 (26-34) PG MCHC 33.2 (30-36) % RDW 12.6 (11.6-14.8) % Plt Count 290 (150-400) X10^3/uL Neut % (Auto) 79.7 H (50-75) % Lymph % (Auto) 11.6 L (25-40) % [place] % (Auto) 6.8 (3-14) % Eos % (Auto) 1.1 L (2-4) % Baso % (Auto) 0.8 (0-2) % Neut # (Auto) 6600 (7311-7070) /uL Lymph # (Auto) 1000 L (4507-0963) /uL [place] # (Auto) 600 (0-900) /uL Eos # (Auto) 100 (0-450) /uL Baso # (Auto) 100 (0-100) /uL Sodium 136 L (137-145) mmol/L Potassium 4.2 (3.4-5.1) mmol/L Chloride 104 (98-107) mmol/L Carbon Dioxide 25 (22-32) mmol/L BUN 30 H (7-17) mg/dL Creatinine 1.31 H (0.52-1.04) mg/dL Estimated GFR 42 L (>60) mL/min BUN/Creatinine Ratio 22.9 H (6-22) Glucose 131 H (80-110) mg/dL Calcium 11.1 H (8.4-10.2) mg/dL Magnesium 2.0 (1.6-2.3) mg/dL Total Bilirubin 0.5 (0.2-1.3) mg/dL AST 23 (14-36) IU/L ALT 18 (<35) IU/L Alkaline Phosphatase 70 (38-126) U/L Total Protein 7.9 (6.3-8.2) g/dL Albumin 4.5 (3.5-5.0) g/dL Globulin 3.4 (1.7-4.1) g/dL Albumin/Globulin Ratio 1.3 (1.0-2.8) Urine Color Yellow Urine Appearance Clear Urine pH 5.5 (4.5-8.0) Ur Specific Apex <=1.005 (1.000-1.035) Urine Protein Negative (Negative) Urine Glucose (UA) Negative (Negative) g/dL Urine Ketones Negative (NEGATIVE) Urine Occult Blood Trace-intact (Negative) Urine Nitrate Negative (Negative) Urine Bilirubin Negative (NEGATIVE) Urine Urobilinogen 0.2 (0.2) E.U./dL Ur Leukocyte Esterase Negative (NEGATIVE) Urine RBC None seen (0-5/HPF) Urine WBC None seen (0-5/HPF) Ur Squamous Epith Cells None seen (0-5/HPF) Urine Bacteria None seen (None) Ur Culture Indicated? Cult not indicated Vol Urine Centrifuged 10ml (spun) SARS-CoV-2 (PCR) Negative (Negative) Influenza A (RT-PCR) Flu a negative (NEGATIVE) Influenza B (RT-PCR) Flu b negative (NEGATIVE) RSV (PCR) Negative (Negative) MDM Narrative Medical decision making narrative: CC: Fatigue, body aches, fevers and chills Complicating co-morbidities: Treated yesterday for a positive urine culture from January 21 showing a pansensitive E coli only 40CFU. Recent NSTEMI concern regarding memory function Data collected from: patient, friend Medical records reviewed: Primary care note from 01/27 discussing UTI and antibiotics given his reviewed Differential considered: Viral syndrome including influenza, she may have a mild UTI but I do not suspect sepsis, certainly no evidence for pyelonephritis, no evidence clinically for pneumonia Exam documented above, pertinent findings include: Patient is somewhat emotional but exam is absolutely benign including a nontender in certainly nonsurgical abdomen. No flank pain Lab Test results independently reviewed as above. Pertinent findings: CBC is unremarkable Chemistries show slightly improved creatinine, elevated calcium at 11.1, normal magnesium Urine shows no abnormality No evidence of influenza, COVID or RSV Treatment: s he has been given a L of fluid, 4 mg of Zofran 2 g of ceftriaxone Re-evaluations: On re-evaluation she continues to be quite tearful. States she felt similar to this after her and had done well on 10 mg of citalopram. She notes this has been getting worse since her recent heart attack. She would like to restart her citalopram Discussion: 78-year-old woman with possible urinary tract infection initially positive urine with only 40,000 colony-forming units of pansensitive E coli from 01/11 was noted. She was minimally symptomatic. She received IM ceftriaxone yesterday was feeling somewhat better began prescribed ciprofloxacin and today comes in saying that she is feeling significantly worse with aching all over. No dysuria. She is worried that she is becoming more sick. Labs are reassuring. There was no evidence of sepsis, significant infection. Her urine today looks good. No signs of viral etiology. At this time I am going to opt to treat her with IV ceftriaxone to complete a course of antibiotics for a urinary tract infection and have her stop the ciprofloxacin in the off chance that these symptoms are adverse reaction to the ciprofloxacin. She again brings up the emotional distress that has been worsening since her recent heart attack. With shared decision-making we have opted to restart her citalopram knowing that she needs an appointment to follow up with her primary care physician. Reassurance is given regarding evidence of a urinary tract infection and additional questions are answered. No indication for hospitalization at this time she is safe for discharge Discharge Plan Departure Patient Disposition: Home Clinical Impression: Urinary tract infection Qualifiers: Urinary tract infection type: acute cystitis Hematuria presence: without hematuria Qualified Code(s): N30.00 - Acute cystitis without hematuria Depression Qualifiers: Depression Type: other depression Qualified Code(s): F32.89 - Other specified depressive episodes Instructions: DI for Depression -- Adult, DI for Urinary Tract Infection (UTI) Activity Restrictions/Additional Instructions: Thank you for coming in today Your lab work was very reassuring. There is no evidence of worsening bladder infection or reason for hospitalization. In the emergency department I gave you a 2nd dose of ceftriaxone, you received the 1st dose yesterday in the clinic. Please stop the Cipro. I do not know if this is contributing to the achy all over feeling that seems to be getting worse but with 2 doses of ceftriaxone we have effectively treated your infection Regarding your increasing emotional lability and sadness since your heart attack, I suspect that you may benefit from restarting the citalopram to treat depression as you did after the your . I would recommend counseling. It is not uncommon after significant personal medical events where you actually consider your own mortality that depression can develop. I have given you a prescription for citalopram 10 mg. You do need to schedule an appointment with your primary care physician [facility] [place] If you find that you are getting worse or develop any new symptoms, please feel free to return to the emergency department for further evaluation. Prescriptions: New citalopram 10 mg tablet 10 mg PO DAILY Qty: 30 0RF No Action Thera M Plus (ferrous fumarat) 1 EACH tablet 1 tab PO Q DAY Qty: 0 amlodipine 5 mg tablet See Rx Instructions .ROUTE .COMPLEX Qty: 90 3RF Dose Instruction: TAKE 1 TABLET BY MOUTH AT BEDTIME Rx Instructions: TAKE 1 TABLET BY MOUTH AT BEDTIME tizanidine 2 mg tablet 2 mg PO 3XD PRN (Reason: for muscle spasm) Qty: 270 0RF Rx Instructions: PLEASE TELL PT NEEDS APPT TO KEEP FILLING THIS MEDICATION levothyroxine 88 mcg tablet 88 mcg PO DAILY Qty: 90 3RF ciprofloxacin HCl 250 mg tablet 250 mg PO BID Qty: 6 0RF Rx Instructions: twice daily for 3 days (DME) disabled parking permit See Rx Instructions .ROUTE .MEDSUPPLY Qty: 1 0RF Rx Instructions: As directed. patient qualifies for disabled parking as per attached form. aspirin [Adult Low Dose Aspirin] 81 mg tablet,delayed release (DR/EC) 81 mg PO DAILY mecobalamin (vitamin B12) 10,000 mcg recon soln 1,000 mcg IM QMONTH Qty: 1 2RF Rx Instructions: 1,000 mcg per month. started on 09/24 - end in November. Labs after in December albuterol sulfate 90 mcg/actuation HFA aerosol inhaler 2 puff inhalation Q6H PRN (Reason: shortness of breath or wheezing) Qty: 8.5 1RF carvedilol 3.125 mg tablet 3.125 mg PO BID rosuvastatin 10 mg tablet 10 mg PO ONCE PM Brilinta 90 mg tablet 90 mg PO BID isosorbide mononitrate 30 mg tablet extended release 24 hr 30 mg PO DAILY Qty: 30 0RF ferrous sulfate 325 mg (65 mg iron) tablet 325 mg PO DAILY Referrals: Zaki Gerber, [Primary Care Provider] - Stand Alone Forms: Patient Portal/API
[2024-01-29] MEDS: ONDANSETRON 4 MG/2 ML INJ IV (10:25)
[2024-01-29] MEDS: SODIUM CHLORIDE 0.9% 1,000 ML 1000 ML IV (10:25)
[2024-01-29 10:32] LABS: Add Manual Diff / Slide Review NO; Basophils Absolute Auto 100 /uL (0-100); Basophils Percent Auto 0.8 % (0-2); Eosinophils Absolute Auto 100 /uL (0-450); Eosinophils Percent Auto 1.1 % (2-4); Hematocrit 36.6 % (36-46); Hemoglobin 12.1 g/dL (12.0-16.0); Lymphocytes Absolute Auto 1000 /uL (1100-4500); Lymphocytes Percent Auto 11.6 % (25-40); Mean Corpuscular HGB Conc 33.2 % (30-36); Mean Corpuscular Hemoglobin 31.5 PG (26-34); Mean Corpuscular Volume 94.9 fL (80-100); Monocytes Absolute Auto 600 /uL (0-900); Monocytes Percent Auto 6.8 % (3-14); Neutrophils Absolute Auto 6600 /uL (1500-7000); Neutrophils Percent Auto 79.7 % (50-75); Platelet Count 290 X10^3/uL (150-400); Red Blood Cell Count 3.85 X10^6/uL (4.0-5.2); Red Cell Distribution Width 12.6 % (11.6-14.8); White Blood Cell Count 8.3 X10^3/uL (4.5-11.0)
[2024-01-29 10:47] LABS: Alanine Aminotransferase 18 IU/L (<35); Albumin 4.5 g/dL (3.5-5.0); Albumin Globulin Ratio 1.3 (1.0-2.8); Alkaline Phosphatase 70 U/L (38-126); Aspartate Aminotransferase 23 IU/L (14-36); BUN Creatinine Ratio 22.9 (6-22); Bilirubin Total 0.5 mg/dL (0.2-1.3); Blood Urea Nitrogen 30 mg/dL (7-17); Calcium 11.1 mg/dL (8.4-10.2); Carbon Dioxide 25 mmol/L (22-32); Chloride 104 mmol/L (98-107); Estimated Glomerular Filt Rate 42 mL/min (>60); Globulin 3.4 g/dL (1.7-4.1); Glucose 131 mg/dL (80-110); HEMOLYSIS < 15 (0-50); Potassium 4.2 mmol/L (3.4-5.1); Sodium 136 mmol/L (137-145); Total Protein 7.9 g/dL (6.3-8.2)
[2024-01-29 11:06] LABS: Influenza A - CEPHEID Flu A NEGATIVE (NEGATIVE); Influenza B - CEPHEID Flu B NEGATIVE (NEGATIVE); Respiratory Syncytial Virus Negative (Negative)
[2024-01-29 11:07] LABS: COVID-19 CEPHEID 4-PLEX PCR Negative (Negative)
[2024-01-29 11:43] LABS: Appearance Urine UA CLEAR; Bilirubin Urine UA NEGATIVE (NEGATIVE); Color Urine UA YELLOW; Glucose Urine UA NEGATIVE (Negative); Ketones Urine UA NEGATIVE (NEGATIVE); Leukocyte Esterase Urine UA NEGATIVE (NEGATIVE); Nitrite Urine UA NEGATIVE (Negative); Occult Blood Urine UA TRACE-INTACT (Negative); Protein Urine UA NEGATIVE (Negative); Specific Gravity Urine UA <=1.005 (1.000-1.035); Urobilinogen Urine UA 0.2 E.U./dL (0.2)
[2024-01-29 11:44] LABS: pH Urine UA 5.5 (4.5-8.0)
[2024-01-29 11:49] LABS: Bacteria Urine None Seen; Culture Indicated Urine Cult Not Indicated; RBC Urine None Seen (0-5/HPF); Squamous Epithelial Cell Urine None Seen (0-5/HPF); Urine Volume 10mL (spun); WBC Urine None Seen (0-5/HPF)
[2024-01-29] MEDS: cefTRIAXone 2,000 MG in SODIUM CHLORIDE 0.9% 100 ML 200 MG IV (13:17)
== END 2024-01-29 14:02 | disposition home or self-care (01) ==
PROVIDERS: Emergency Provider Emergency Medicine; Family Provider Family Medicine; PCP Family Medicine
DX: N30.00 Acute cystitis without hematuria (principal); F32.89 Other specified depressive episodes; I25.2 Old myocardial infarction; Z11.52 Encounter for screening for COVID-19
CPT/HCPCS: 0241U; 36415; 80053; 81001; 83735; 85025; 96361; 96365; 96375; 99284; J0696; J2405

== ENCOUNTER → 2024-02-25 13:11 | Outpatient (CLI) | payer MEDICARE, OTHER, SELFPAY ==
[2023-12-25 09:57] VITALS: BMI 24.7
--- NOTE | 2024-02-25 13:16 | DI.US.S_ITS ---
PROCEDURE: [facility] VENOUS UP EXTREM LT INDICATIONS: pain in left arm TECHNIQUE: Real-time imaging, as well as color and pulse Doppler interrogation, was performed of the upper extremity deep veins from the inferior neck to the antecubital fossa. COMPARISON: [facility], , [facility] VENOUS UP EXTREM LT, 09/28/2018, 12:13. FINDINGS: The internal jugular vein, visualized portions of the subclavian vein, axillary, and brachial veins are free of intraluminal thrombus. Where physically possible, the veins are normally compressible. Color and pulse Doppler demonstrate normal intraluminal flow, with expected phasicity and pulsatility. Additional scanning of the cephalic and basilic veins of the superficial system demonstrates normal compressibility, without thrombus. No abnormality seen in the area of bruising. Small collection measuring 5.7 x 3.8 x 0.4 cm. This is superior to the biceps tendon. IMPRESSION: No findings of upper extremity deep venous thrombosis can be seen. Small collection near the glenohumeral joint. This could represent a bursal collection or glenohumeral joint effusion. Clinical significance of this finding is uncertain. Dictated by: Salvador Christina M.D. on 02/25/2024 at 18:52 Approved by: Salvador Christina M.D. on 02/25/2024 at 18:58
== END ==
PROVIDERS: Family Provider Family Medicine; PCP Family Medicine; Referring Provider Family Medicine; Visit Provider Family Medicine
DX: I74.2 Embolism and thrombosis of arteries of the upper extremities (principal); M79.602 Pain in left arm
CPT/HCPCS: 93971

== ENCOUNTER 2024-04-13 10:15 | Outpatient (RCR) | payer MEDICARE, OTHER, SELFPAY ==
[2023-12-25 09:57] VITALS: BMI 24.7
== END 2024-04-13 12:30 ==
LOC: CAR 10:15
PROVIDERS: Family Provider Family Medicine; PCP Family Medicine; Referring Provider Internal Medicine Cardiovascular Disease; Visit Provider Internal Medicine Cardiovascular Disease
DX: I21.4 Non-ST elevation (NSTEMI) myocardial infarction (principal); Z95.5 Presence of coronary angioplasty implant and graft; I25.10 Atherosclerotic heart disease of native coronary artery without angina pectoris; I25.83 Coronary atherosclerosis due to lipid rich plaque
CPT/HCPCS: 93010; 93798

== ENCOUNTER 2024-04-15 17:37 | Emergency (ER) | payer MEDICARE, OTHER, SELFPAY ==
[2023-12-25 09:57] VITALS: BMI 24.7
[2024-04-15] VITALS (8 sets, daily range): BP systolic 147–220; BP diastolic 67–87; PULSE 56–73; RESP 16–18; TEMP 36.6; O2SAT 91–100; BMI 24.2
--- NOTE | 2024-04-15 18:07 | DI.RAD.S_ITS ---
PROCEDURE: XR HIP W PEL IF DONE RT 2V INDICATIONS: fall on replaced R hip TECHNIQUE: 3 views of the hip were acquired. COMPARISON: [facility], CRISTIAN, XR HIP W PEL IF DONE RT 2V, 09/24/2021, 10:53. [facility], CR, XR HIP W PEL IF DONE RT 2V, 09/23/2021, 9:08. FINDINGS: Bones: Suspect minimally displaced periprosthetic right greater trochanter fracture. Background left hip degenerative changes. No hip arthroplasty dislocation. Soft tissues: Vascular calcifications. IMPRESSION: Periprosthetic greater trochanter fracture. Dictated by: Zachary Mcgraw M.D. on 04/15/2024 at 19:06 Approved by: Zachary Mcgraw M.D. on 04/15/2024 at 19:07
--- NOTE | 2024-04-15 18:09 | DI.CT.S_ITS ---
PROCEDURE: CT CERVICAL SPINE WO CON INDICATIONS: fall hit head on brilinta TECHNIQUE: Noncontrast 3 mm thick sections acquired from the skull base to the T4 level. Sagittal and coronal reformats were then constructed. For radiation dose reduction, the following was used: automated exposure control, adjustment of mA and/or kV according to patient size. COMPARISON: [facility], CT, C-SPINE WITHOUT CONTRAST, 08/03/2017, 21:07. FINDINGS: Image quality: Diagnostic Bones: Mild overall spondylotic changes. No traumatic subluxation. No acute vertebral body height loss. Soft tissues: No pathologic prevertebral soft tissue swelling. Vascular calcifications. IMPRESSION: No displaced fracture or traumatic subluxation. If there is high concern for further derangement, consider MRI evaluation. Mild spondylotic changes Dictated by: Zachary Mcgraw M.D. on 04/15/2024 at 19:09 Approved by: Zachary Mcgraw M.D. on 04/15/2024 at 19:11
--- NOTE | 2024-04-15 18:09 | DI.CT.S_ITS ---
PROCEDURE: CT HEAD/BRAIN WO CON INDICATIONS: fall hit head on brilinta TECHNIQUE: Noncontrast 4.5 mm thick angled axial sections acquired from the foramen magnum to the vertex, with coronal and sagittal reformats. For radiation dose reduction, the following was used: automated exposure control, adjustment of mA and/or kV according to patient size. COMPARISON: [facility], CT, CT HEAD/BRAIN WO CON, 03/08/2021, 11:47. FINDINGS: Image quality: Diagnostic CSF spaces: Basal cisterns are patent. Lateral ventricles are symmetric. Volume: Vascular calcifications. Periventricular white matter disease is commonly seen with chronic microangiopathy. Volume loss is present. These findings are moderate Brain: No intracranial hemorrhage. Knowles-white differentiation is grossly maintained. Craniofacial structures: Opacification of the left sphenoid with hyperostosis. IMPRESSION: No acute intracranial hemorrhage. Left sphenoid sinus disease Dictated by: Zachary Mcgraw M.D. on 04/15/2024 at 19:07 Approved by: Zachary Mcgraw M.D. on 04/15/2024 at 19:09
--- NOTE | 2024-04-15 20:16 | DI.RAD.S_ITS ---
PROCEDURE: XR CHEST 1V INDICATIONS: pre-op TECHNIQUE: One view of the chest was acquired. COMPARISON: [facility], CR, XR CHEST 1V, 01/14/2024, 9:07. FINDINGS: Surgical changes and devices: None. Lungs and pleura: Lungs are clear. No pleural effusions or pneumothorax. Mediastinum: Mediastinal contours appear normal. Heart size is normal. Bones and chest wall: No suspicious bony lesions. Overlying soft tissues appear unremarkable. IMPRESSION: No acute cardiopulmonary pathology. Dictated by: Reno Fuller M.D. on 04/15/2024 at 21:26 Approved by: Reno Fuller M.D. on 04/15/2024 at 21:26
--- NOTE | 2024-04-15 20:23 | ED_ITS ---
HPI - Fall General Chief Complaint: Fall Stated Complaint: GLF, R Knee/Hip injury Time Seen by Provider: 04/15/24 20:13 History of Present Illness HPI Narrative: 79-year-old female presents for evaluation right hip pain after ground level fall yesterday. Previous R hip replacement with Dr. Macdonald. Patient states that she has a torn meniscus in her right knee that gives her issues from time to time. Yesterday her knee gave out and she fell, landing on her right hip and striking her head. She was on Brilinta but not on any other blood thinners. Patient has had persistent right-sided hip pain and presented today for evaluation. She normally does not walk with any assistive devices, but today is having to use a cane to help her ambulate due to the pain in her leg. Related Data Home Medications Medication Instructions Recorded Confirmed multivitamin-iron 9 mg-folic acid 1 tab PO Q DAY ##0 03/20/11 03/10/24 400 mcg-calcium and minerals tablet (Thera M Plus (ferrous fumarate)) ferrous sulfate 325 mg (65 mg 325 mg PO DAILY 03/19/18 03/10/24 iron) tablet aspirin 81 mg tablet,delayed 81 mg PO DAILY 06/20/20 03/10/24 release (Adult Low Dose Aspirin) carvedilol 3.125 mg tablet 3.125 mg PO BID 12/27/23 03/10/24 rosuvastatin 10 mg tablet 10 mg PO ONCE PM 12/27/23 03/10/24 ticagrelor 90 mg tablet (Brilinta) 90 mg PO BID 12/27/23 03/10/24 Previous Rx's Medication Instructions Recorded disabled parking permit #1 ea 10/06/19 mecobalamin (vitamin B12) 10,000 1,000 mcg IM QMONTH #1 ea 09/25/23 mcg solution for injection tizanidine 2 mg tablet 2 mg PO 3XD PRN for muscle spasm 10/07/23 #270 tabs albuterol sulfate 90 mcg/actuation 2 puff inhalation Q6H PRN 12/27/23 aerosol inhaler shortness of breath or wheezing #8.5 grams isosorbide mononitrate 30 mg 30 mg PO DAILY #30 tabs 01/14/24 tablet,extended release 24 hr levothyroxine 88 mcg tablet 88 mcg PO DAILY #90 tabs 01/15/24 amlodipine 5 mg tablet See Rx Instructions .Route 01/30/24 .COMPLEX #90 tabs citalopram 40 mg tablet 40 mg PO DAILY #90 tabs 02/14/24 ondansetron 4 mg disintegrating 4 mg PO Q8H PRN nausea and 04/15/24 tablet vomiting #30 tabs tramadol 50 mg tablet 50 mg PO Q8H PRN pain #12 tabs 04/15/24 Allergies Allergy/AdvReac Type Severity Reaction Status Date / Time tramadol Allergy Severe Anaphylaxis Verified 03/10/24 10:09 hydrocodone [HYDROCODONE] Allergy Intermediate NAUSEA / Verified 03/10/24 10:09 VOMITING Sulfa (Sulfonamide Allergy Mild Hives Verified 03/10/24 10:09 Antibiotics) [SULFA (SULFONAMIDE ANTIBIOTICS)] fentanyl AdvReac Severe Vomiting Verified 03/10/24 10:09 morphine [MORPHINE] AdvReac Mild Vomiting Verified 03/10/24 10:09 OPITATES Allergy Intermediate Gastrointestinal Uncoded 03/10/24 10:09 Upset Patient History Medical History Left arm pain Acute cystitis with positive culture Chronic cough History of myocardial infarction Anemia Medicare annual wellness visit, subsequent Encounter for wellness examination in adult Cellulitis Eczema Trochanteric bursitis, left hip Diverticulosis Well adult exam Breast cyst Carotid stenosis Breast nodule Pulmonary nodules Chronic headache Hyperlipidemia Hyperparathyroidism Chronic kidney disease Paresthesia of left upper extremity Facet arthropathy, lumbosacral Pruritic rash Chronic anticoagulation Foraminal stenosis of cervical region Headache Fractures (~1977) Acne Mumps (~1953) Measles (~1953) Chicken pox (~194) Cataracts, bilateral (~2013) Hypertension (~1999) Facial abrasion (~10/07/19) Surgical History History of heart artery stent Anesthesia Status post tonsillectomy and adenoidectomy Status post appendectomy Status post tubal ligation Status post dilation and curettage History of cataract removal with insertion of prosthetic lens (~2013) Family History Father Cancer Grandfather Heart disease Grandmother Stroke Mother Cancer Brother No problems noted. Grandfather No problems noted. Grandmother No problems noted. Social History household members: none Smoking Status: Never smoker alcohol intake: never substance use type: does not use Smoking Status: Never smoker alcohol intake frequency: a few times a month Exam Initial Vital Signs Initial Vital Signs: Vital Signs Temperature 97.9 F 04/15/24 18:00 Pulse Rate 56 L 04/15/24 18:00 Respiratory Rate 16 04/15/24 18:00 Blood Pressure 147/67 H 04/15/24 18:00 Pulse Oximetry 100 04/15/24 18:00 Oxygen Delivery Method Room Air 04/15/24 18:00 Const: Awake, alert, uncomfortable, nontoxic appearing Cardiac: regular rate, regular rhythm RESP: unlabored, clear bilaterally, no wheezing MSK: No obvious deformity, contusion present right lateral hip Skin: Warm, Dry, intact, R lateral thigh contusion Neuro: AO x3, CN II-XII grossly intact, moves all extremities Course Orders Ordered: ED Orders 04/15/24 20:16 Chest [XR chest 1V] Stat EKG-12 Lead Stat 04/15/24 20:23 CT pelvis wo con Stat 04/15/24 20:36 CBC Auto Diff [Complete Blood Count AUTO DIFF] Stat CMP [Comprehensive Metabolic Panel] Stat PT [Prothrombin Time INR] Stat 04/15/24 21:30 Type and Screen Stat Discontinued Medications Fentanyl (Fentanyl 100 Mcg/2 Ml Inj) 50 mcg IV NOW ONE Stop: 04/15/24 20:24 Last Admin: 04/15/24 20:51 Dose: 50 mcg Documented By: JOSELYN Ondansetron HCl (Ondansetron 4 Mg/2 Ml Inj) 4 mg IV NOW ONE Stop: 04/15/24 20:24 Last Admin: 04/15/24 20:52 Dose: 4 mg Documented By: JOSELYN Ondansetron HCl (Ondansetron 4 Mg Odt) 4 mg SL NOW ONE Stop: 04/15/24 22:45 Last Admin: 04/15/24 22:59 Dose: 4 mg Documented By: JOSELYN Tramadol HCl (Tramadol 50 Mg Prepack) 1 bottle MISC DIRECTED ONE Stop: 04/15/24 22:45 Last Admin: 04/15/24 22:59 Dose: 1 bottle Documented By: JOSELYN Vital Signs Vital signs: Vital Signs - 8 hr 04/15/24 20:10 04/15/24 20:17 04/15/24 20:17 Pulse Rate 70 63 Respiratory Rate Blood Pressure 220/87 H Pulse Oximetry 98 99 04/15/24 20:30 04/15/24 22:00 04/15/24 22:14 Pulse Rate 61 70 73 Respiratory Rate Blood Pressure Pulse Oximetry 100 91 96 04/15/24 22:14 04/15/24 22:30 04/15/24 22:31 Pulse Rate 62 60 Respiratory Rate 18 Blood Pressure 180/74 H Pulse Oximetry 93 93 04/15/24 22:31 Pulse Rate Respiratory Rate Blood Pressure 186/81 H Pulse Oximetry MDM - Fall Differential Diagnosis Differential diagnosis: Likely compression fracture, concussion with loss of consciousness and concussion without loss of consciousness Lab Data 04/15/24 20:36 04/15/24 20:36 Labs: Lab Results 04/15/24 04/15/24 Range/Units 20:36 21:30 WBC 13.5 H (4.5-11.0) X10^3/uL RBC 3.70 L (4.0-5.2) X10^6/uL Hgb 11.4 L (12.0-16.0) g/dL Hct 34.5 L (36-46) % MCV 93.2 (80-100) fL MCH 30.8 (26-34) PG MCHC 33.0 (30-36) % RDW 13.3 (11.6-14.8) % Plt Count 288 (150-400) X10^3/uL Neut % (Auto) 81.1 H (50-75) % Lymph % (Auto) 9.3 L (25-40) % [place] % (Auto) 7.0 (3-14) % Eos % (Auto) 2.0 (2-4) % Baso % (Auto) 0.6 (0-2) % Neut # (Auto) 42542 H (9163-8439) /uL Lymph # (Auto) 1300 (9568-8168) /uL [place] # (Auto) 900 (0-900) /uL Eos # (Auto) 300 (0-450) /uL Baso # (Auto) 100 (0-100) /uL PT 12.3 (9.4-12.5) SECONDS INR 1.1 (0.9-1.3) Sodium 132 L (137-145) mmol/L Potassium 4.5 (3.4-5.1) mmol/L Chloride 103 (98-107) mmol/L Carbon Dioxide 21 L (22-32) mmol/L BUN 32 H (7-17) mg/dL Creatinine 1.43 H (0.52-1.04) mg/dL Estimated GFR 37 L (>60) mL/min BUN/Creatinine Ratio 22.4 H (6-22) Glucose 121 H (80-110) mg/dL Calcium 10.5 H (8.4-10.2) mg/dL Total Bilirubin 0.6 (0.2-1.3) mg/dL AST 26 (14-36) IU/L ALT 19 (<35) IU/L Alkaline Phosphatase 75 (38-126) U/L Total Protein 8.0 (6.3-8.2) g/dL Albumin 4.4 (3.5-5.0) g/dL Globulin 3.6 (1.7-4.1) g/dL Albumin/Globulin Ratio 1.2 (1.0-2.8) Blood Type A Positive Antibody Screen Negative Imaging Data CT scan - abdomen/pelvis: Radiologist's Impression: PROCEDURE: CT PEL WO CON INDICATIONS: GLF, R HIP PAIN, EVAL ADDITIONAL INJ TECHNIQUE: Noncontrast 3 mm axial sections acquired through the bony pelvis, with coronal and sagittal reformatting. COMPARISON: [facility], CR, XR HIP W PEL IF DONE RT 2V, 04/15/2024, 18:09. FINDINGS: Image quality: Diagnostic. Beam hardening artifacts are seen. Bones: Patient is status post prior right total hip arthroplasty. There is an acute appearing transverse fracture through base of greater trochanter with slight medial and superior displacement of greater trochanteric fragment. There is up to 6 mm diastasis at fracture site. No other fracture or dislocation is seen. Moderate left hip joint osteoarthritic changes are seen. No evidence of avascular necrosis of femoral head. Degenerative disc disease in visualized lower lumbar spine. No suspicious bony lesions. Soft tissues: There is soft tissue swelling and edema adjacent to greater trochanteric fracture site. No large drainable fluid collection or soft tissue mass. No peritoneal free fluid or free air. No abnormal bowel wall thickening. Bladder wall thickness is normal. IMPRESSION: 1. Acute displaced fracture involving base of right greater trochanter adjacent to the right femoral prosthesis. No other fracture or dislocation. No suspicious bony lesions. 2. Soft tissue swelling and edema adjacent to greater trochanteric fracture site. No large soft tissue mass or drainable fluid collection. No abnormal soft tissue calcifications. No pelvic free fluid or free air. Dictated by: Reno Fuller M.D. on 04/15/2024 at 21:58 Approved by: Reno Fuller M.D. on 04/15/2024 at 22:01 [facility] Narrative Medical decision making narrative: Ground level fall with right hip pain. CT brain and CT C-spine negative for acute findings. X-ray of the hip showed periprosthetic greater trochanteric fracture. Based on patient's pain as well as severe difficulty bearing weight a CT pelvis ordered to ensure that no other occult fracture is missed. CT pelvis confirms acute displaced fracture of the right greater trochanter without any other acute traumatic findings. Soft tissue swelling also noted, this correlates with the area of hematoma seen on external exam. Case discussed with on-call orthopedic surgeon Dr. Macdonald, who reviewed the imaging and states that patient was not need operative intervention at this time. Recommended physical therapy, using a walker for ambulation with minimal weight-bearing, clinic follow up. Patient was able to ambulate with a walker. She was informed of imaging results as well as orthopedic recommendations. She was eager to go home as she states that she does not like to stay in the hospital. Pain medication and nausea medication sent to pharmacy of choice. Patient states that she has several walkers at home that she can use to help her get around her house. Discharge Plan Departure Patient Disposition: Home Clinical Impression: Closed fracture of greater trochanter of femur Instructions: DI for Hip Fracture Activity Restrictions/Additional Instructions: Your pelvic CT scan shows that you have a greater trochanteric fracture, which is the tip of your femur bone. Your prosthetic equipment is in the correct position. Orthopedic surgery has reviewed the images and you do not need surgery at this time. Use the walker to help you get around. I know that you have difficulty with opiate pain medications, however hopefully the prescribed medications help control your pain. Nausea medication has also been sent to your pharmacy if you feel these medications are causing you to feel nauseous or vomit. Follow up with your orthopedic surgeon. They recommend physical therapy for this injury Prescriptions: New tramadol 50 mg tablet 50 mg PO Q8H PRN (Reason: pain) Qty: 12 0RF ondansetron 4 mg tablet,disintegrating 4 mg PO Q8H PRN (Reason: nausea and vomiting) Qty: 30 0RF No Action Thera M Plus (ferrous fumarat) 1 EACH tablet 1 tab PO Q DAY Qty: 0 tizanidine 2 mg tablet 2 mg PO 3XD PRN (Reason: for muscle spasm) Qty: 270 0RF Rx Instructions: PLEASE TELL PT NEEDS APPT TO KEEP FILLING THIS MEDICATION levothyroxine 88 mcg tablet 88 mcg PO DAILY Qty: 90 3RF amlodipine 5 mg tablet See Rx Instructions .ROUTE .COMPLEX Qty: 90 3RF Dose Instruction: TAKE 1 TABLET BY MOUTH AT BEDTIME Rx Instructions: TAKE 1 TABLET BY MOUTH AT BEDTIME citalopram 40 mg tablet 40 mg PO DAILY Qty: 90 3RF (DME) disabled parking permit See Rx Instructions .ROUTE .MEDSUPPLY Qty: 1 0RF Rx Instructions: As directed. patient qualifies for disabled parking as per attached form. aspirin [Adult Low Dose Aspirin] 81 mg tablet,delayed release (DR/EC) 81 mg PO DAILY mecobalamin (vitamin B12) 10,000 mcg recon soln 1,000 mcg IM QMONTH Qty: 1 2RF Rx Instructions: 1,000 mcg per month. started on 09/24 - end in November. Labs after in December albuterol sulfate 90 mcg/actuation HFA aerosol inhaler 2 puff inhalation Q6H PRN (Reason: shortness of breath or wheezing) Qty: 8.5 1RF carvedilol 3.125 mg tablet 3.125 mg PO BID rosuvastatin 10 mg tablet 10 mg PO ONCE PM Brilinta 90 mg tablet 90 mg PO BID isosorbide mononitrate 30 mg tablet extended release 24 hr 30 mg PO DAILY Qty: 30 0RF ferrous sulfate 325 mg (65 mg iron) tablet 325 mg PO DAILY Referrals: Zaki Gerber DO [Primary Care Provider] - Domenica Macdonald MD [Physician] - Stand Alone Forms: Patient Portal/API/Survey
[2024-04-15 20:45] LABS: Add Manual Diff / Slide Review NO; Basophils Absolute Auto 100 /uL (0-100); Basophils Percent Auto 0.6 % (0-2); Eosinophils Absolute Auto 300 /uL (0-450); Hematocrit 34.5 % (36-46); Hemoglobin 11.4 g/dL (12.0-16.0); Lymphocytes Absolute Auto 1300 /uL (1100-4500); Lymphocytes Percent Auto 9.3 % (25-40); Mean Corpuscular Hemoglobin 30.8 PG (26-34); Mean Corpuscular Volume 93.2 fL (80-100); Monocytes Absolute Auto 900 /uL (0-900); Neutrophils Absolute Auto 10900 /uL (1500-7000); Neutrophils Percent Auto 81.1 % (50-75); Platelet Count 288 X10^3/uL (150-400); Red Cell Distribution Width 13.3 % (11.6-14.8); White Blood Cell Count 13.5 X10^3/uL (4.5-11.0)
[2024-04-15 20:51] LABS: INR 1.1 (0.9-1.3); Prothrombin Time 12.3 SECONDS (9.4-12.5)
[2024-04-15] MEDS: fentaNYL 100 MCG/2 ML INJ 50 MCG IV (20:51)
[2024-04-15] MEDS: ONDANSETRON 4 MG/2 ML INJ IV (20:52)
[2024-04-15 20:55] LABS: Alanine Aminotransferase 19 IU/L (<35); Albumin 4.4 g/dL (3.5-5.0); Albumin Globulin Ratio 1.2 (1.0-2.8); Alkaline Phosphatase 75 U/L (38-126); Aspartate Aminotransferase 26 IU/L (14-36); BUN Creatinine Ratio 22.4 (6-22); Bilirubin Total 0.6 mg/dL (0.2-1.3); Blood Urea Nitrogen 32 mg/dL (7-17); Calcium 10.5 mg/dL (8.4-10.2); Carbon Dioxide 21 mmol/L (22-32); Chloride 103 mmol/L (98-107); Estimated Glomerular Filt Rate 37 mL/min (>60); Globulin 3.6 g/dL (1.7-4.1); Glucose 121 mg/dL (80-110); Potassium 4.5 mmol/L (3.4-5.1); Sodium 132 mmol/L (137-145)
[2024-04-15 21:00] LABS: HEMOLYSIS 53 (0-50)
[2024-04-15] MEDS: TRAMADOL 50 MG PREPACK 1 BOTTLE MISC (22:59)
[2024-04-15] MEDS: ONDANSETRON 4 MG ODT SL (22:59)
== END 2024-04-15 23:04 | disposition home or self-care (01) ==
PROVIDERS: Emergency Provider Emergency Medicine; Family Provider Family Medicine; PCP Family Medicine
DX: S72.111A Displaced fracture of greater trochanter of right femur, initial encounter for closed fracture (principal); M97.01XA Periprosthetic fracture around internal prosthetic right hip joint, initial encounter; W18.30XA Fall on same level, unspecified, initial encounter; Z79.01 Long term (current) use of anticoagulants
CPT/HCPCS: 36415; 70450; 71045; 72125; 72192; 73502; 80053; 85025; 85610; 86850; 86900; 86901; 96374; 96375; 99284; 99285; J2405; J3010

== ENCOUNTER → 2024-06-29 15:24 | Outpatient (CLI) | payer MEDICARE, OTHER, SELFPAY ==
[2023-12-25 09:57] VITALS: BMI 24.7
[2024-06-29 16:10] LABS: Add Manual Diff / Slide Review NO; Basophils Absolute Auto 100 /uL (0-100); Basophils Percent Auto 0.5 % (0-2); Eosinophils Absolute Auto 100 /uL (0-450); Eosinophils Percent Auto 0.8 % (2-4); Lymphocytes Absolute Auto 1400 /uL (1100-4500); Lymphocytes Percent Auto 12.6 % (25-40); Mean Corpuscular HGB Conc 32.5 % (30-36); Mean Corpuscular Hemoglobin 31.5 PG (26-34); Mean Corpuscular Volume 96.8 fL (80-100); Monocytes Absolute Auto 1000 /uL (0-900); Monocytes Percent Auto 8.7 % (3-14); Neutrophils Absolute Auto 8600 /uL (1500-7000); Neutrophils Percent Auto 77.4 % (50-75); Platelet Count 348 X10^3/uL (150-400); Red Blood Cell Count 1.93 X10^6/uL (4.0-5.2); Red Cell Distribution Width 15.8 % (11.6-14.8); White Blood Cell Count 11.1 X10^3/uL (4.5-11.0)
[2024-06-29 16:21] LABS: Hemoglobin 6.1 g/dL (12.0-16.0)
[2024-06-29 16:22] LABS: Hematocrit 18.7 % (36-46)
[2024-06-29 16:34] LABS: Appearance Urine UA CLOUDY; Bilirubin Urine UA NEGATIVE (NEGATIVE); Color Urine UA YELLOW; Glucose Urine UA NEGATIVE (Negative); Ketones Urine UA NEGATIVE (NEGATIVE); Leukocyte Esterase Urine UA 2+ (NEGATIVE); Nitrite Urine UA NEGATIVE (Negative); Occult Blood Urine UA TRACE-INTACT (Negative); Protein Urine UA 1+ (Negative); Urobilinogen Urine UA 0.2 E.U./dL (0.2)
[2024-06-29 16:36] LABS: pH Urine UA 5.5 (4.5-8.0)
[2024-06-29 16:38] LABS: Alanine Aminotransferase 13 IU/L (<35); Albumin 3.7 g/dL (3.5-5.0); Albumin Globulin Ratio 1.4 (1.0-2.8); Alkaline Phosphatase 71 U/L (38-126); Aspartate Aminotransferase 18 IU/L (14-36); BUN Creatinine Ratio 28.1 (6-22); Bilirubin Total 0.3 mg/dL (0.2-1.3); Blood Urea Nitrogen 43 mg/dL (7-17); Calcium 10.3 mg/dL (8.4-10.2); Carbon Dioxide 24 mmol/L (22-32); Chloride 100 mmol/L (98-107); Estimated Glomerular Filt Rate 34 mL/min (>60); Globulin 2.6 g/dL (1.7-4.1); Glucose 116 mg/dL (80-110); HEMOLYSIS < 15 (0-50); Potassium 5.1 mmol/L (3.4-5.1); Sodium 133 mmol/L (137-145); Total Protein 6.3 g/dL (6.3-8.2)
[2024-06-29 16:46] LABS: Bacteria Urine Many (>30); RBC Urine 1-5/HPF (0-5/HPF); Urine Volume Low Vol <10mL (spun); WBC Urine 5-10/HPF (0-5/HPF)
[2024-06-29 16:47] LABS: Culture Indicated Urine Specimen Cultured; Mucus Urine 1+ (Negative); Squamous Epithelial Cell Urine 5-10 /HPF (0-5/HPF)
[2024-07-01 09:09] LABS: Calcium 9.9 mg/dL (8.7-10.3); Parathyroid Hormone, Intact 56 pg/mL (15-65)
== END ==
PROVIDERS: Family Provider Family Medicine; PCP Family Medicine; Referring Provider Nurse Practitioner; Visit Provider Nurse Practitioner
DX: I12.9 Hypertensive chronic kidney disease with stage 1 through stage 4 chronic kidney disease, or unspecified chronic kidney disease (principal); N18.31 Chronic kidney disease, stage 3a; N39.0 Urinary tract infection, site not specified; E03.9 Hypothyroidism, unspecified
CPT/HCPCS: 36415; 80053; 81001; 82310; 83970; 85025; 87086

== ENCOUNTER 2024-06-29 16:51 | Observation (INO) | payer MEDICARE, OTHER, SELFPAY ==
[2023-12-25 09:57] VITALS: BMI 24.7
[2024-06-29] VITALS (21 sets, daily range): BP systolic 134–184; BP diastolic 58–77; PULSE 51–66; RESP 11–23; TEMP 36.3–37.1; O2SAT 93–99; BMI 22.8
--- NOTE | 2024-06-29 17:08 | DI.RAD.S_ITS ---
PROCEDURE: XR CHEST 1V INDICATIONS: Shortness of breath TECHNIQUE: One view of the chest was acquired. COMPARISON: [facility], , XR CHEST 1V, 04/15/2024, 20:44. FINDINGS: Surgical changes and devices: None. Lungs and pleura: Lungs are clear. No pleural effusions or pneumothorax. Mediastinum: Mediastinal contours appear normal. Heart size is normal. Bones and chest wall: No suspicious bony lesions. Overlying soft tissues appear unremarkable. IMPRESSION: No acute cardiopulmonary pathology. Dictated by: Reno Fuller M.D. on 06/29/2024 at 17:40 Approved by: Reno Fuller M.D. on 06/29/2024 at 17:40
--- NOTE | 2024-06-29 17:25 | EKG_ITS ---
[address] [address] Test Date: 2024-06-29 Pat Name: Heather Walker Department: [facility] Room: Gender: Female Sound Tester: JASSON : 1945 Requested By: Order Number: [id number] Reading MD: Andrea Abraham MD Measurements Intervals [place] Rate: 53 P: 32 IL: 172 QRS: 15 QRSD: 78 T: 37 QT: 456 QTc: 427 Interpretive Statements Sinus bradycardia Electronically Signed On 06-30-2024 7:44:42 PDT by Andrea Abraham MD
[2024-06-29 17:31] LABS: Add Manual Diff / Slide Review NO; Basophils Absolute Auto 100 /uL (0-100); Basophils Percent Auto 0.7 % (0-2); Eosinophils Absolute Auto 100 /uL (0-450); Eosinophils Percent Auto 1.1 % (2-4); Lymphocytes Absolute Auto 1400 /uL (1100-4500); Lymphocytes Percent Auto 11.4 % (25-40); Mean Corpuscular HGB Conc 32.5 % (30-36); Mean Corpuscular Hemoglobin 31.6 PG (26-34); Mean Corpuscular Volume 97.1 fL (80-100); Monocytes Absolute Auto 1000 /uL (0-900); Neutrophils Absolute Auto 9800 /uL (1500-7000); Neutrophils Percent Auto 78.8 % (50-75); Platelet Count 360 X10^3/uL (150-400); Red Blood Cell Count 1.95 X10^6/uL (4.0-5.2); Red Cell Distribution Width 16.2 % (11.6-14.8); White Blood Cell Count 12.5 X10^3/uL (4.5-11.0)
[2024-06-29 17:36] LABS: INR 2.3 (0.9-1.3); Prothrombin Time 25.3 SECONDS (9.4-12.5)
[2024-06-29 17:39] LABS: Hematocrit 18.9 % (36-46); Hemoglobin 6.2 g/dL (12.0-16.0)
[2024-06-29 17:40] LABS: Lactate (Lactic Acid) 3.9 mmol/L (0.7-2.1)
[2024-06-29 17:41] LABS: Alanine Aminotransferase 16 IU/L (<35); Albumin Globulin Ratio 1.3 (1.0-2.8); Alkaline Phosphatase 69 U/L (38-126); Aspartate Aminotransferase 21 IU/L (14-36); BUN Creatinine Ratio 25.3 (6-22); Bilirubin Total 0.3 mg/dL (0.2-1.3); Blood Urea Nitrogen 43 mg/dL (7-17); Calcium 10.5 mg/dL (8.4-10.2); Carbon Dioxide 19 mmol/L (22-32); Chloride 99 mmol/L (98-107); Estimated Glomerular Filt Rate 30 mL/min (>60); Globulin 3.1 g/dL (1.7-4.1); Glucose 116 mg/dL (80-110); HEMOLYSIS < 15 (0-50); Potassium 4.9 mmol/L (3.4-5.1); Sodium 133 mmol/L (137-145); Total Protein 7.1 g/dL (6.3-8.2)
[2024-06-29 17:52] LABS: NT-proBNP (BNP-Adult 18+) 1180 pg/mL (<450); Troponin I < 0.012 ng/mL (0.01-0.034)
[2024-06-29 18:56] LABS: Reflexed Lactate in 2 Hours Y
[2024-06-29 19:41] LABS: Lactate 2HR (Lactic Acid Rflx) 0.7 mmol/L (0.7-2.1)
--- NOTE | 2024-06-29 20:16 | ED.RECABL ---
HPI - Recheck/Abnormal Lab/Rx General Chief Complaint: Recheck/Abnormal Lab/Rx Stated Complaint: sent by cardiology for abn labs Time Seen by Provider: 06/29/24 19:58 Source: patient, RN notes reviewed and old records reviewed Limitations: no limitations History of Present Illness HPI narrative: 79-year-old female with history of hypertension, DVT on Xarelto, Brilinta and aspirin 81 mg daily patient has had prior bilateral carotid CEAs, patch as well as stent on the left carotid. Patient presents with complaint of increasing shortness of breath particularly with exertion, fatigue decrease in energy. No chest, no syncope but has felt lightheaded, no abdominal pain. She was had some mild diarrhea for 3 or 4 days she has not looked but has not appreciate any black or bloody stools but states she was not visualized her stool. She denies any dysuria urgency or frequency. No swelling in extremities. No fevers or chills. She notes she has been on 3 blood thinners went to the [facility] today because she thought she might be overmedicated they had her get labs urine and make a follow up with her primary care and called her after finding her hemoglobin was low and told to come to the ER. Surgical history includes neck surgery x4 bilateral carotid CEAs, patch followed by a left carotid stent, parathyroid surgery. Patient has known hip fracture and knee meniscus tear that are current 3 months ago they are non operative. Patient has not been taking any NSAIDs regularly but been doing Tylenol for pain. Primary care is Dr. Gerber. She saw Heather colon was practitioner for Dr. Holloway with Cardiology. Related Data Home Medications Medication Instructions Recorded Confirmed multivitamin-iron 9 mg-folic acid 1 tab PO Q DAY ##0 03/20/11 05/15/24 400 mcg-calcium and minerals tablet (Thera M Plus (ferrous fumarate)) ferrous sulfate 325 mg (65 mg 325 mg PO DAILY 03/19/18 05/15/24 iron) tablet aspirin 81 mg tablet,delayed 81 mg PO DAILY 06/20/20 05/15/24 release (Adult Low Dose Aspirin) carvedilol 3.125 mg tablet 3.125 mg PO BID 12/27/23 05/15/24 rosuvastatin 10 mg tablet 10 mg PO ONCE PM 12/27/23 05/15/24 ticagrelor 90 mg tablet (Brilinta) 90 mg PO BID 12/27/23 05/15/24 lisinopril 10 mg tablet mg PO 05/15/24 05/15/24 nitroglycerin 0.4 mg sublingual mg sublingual 05/15/24 05/15/24 tablet oxycodone 5 mg tablet 2.5 mg PO 05/15/24 05/15/24 rivaroxaban 15 mg tablet (Xarelto) mg PO DAILY 05/15/24 05/15/24 Previous Rx's Medication Instructions Recorded disabled parking permit #1 ea 10/06/19 mecobalamin (vitamin B12) 10,000 1,000 mcg IM QMONTH #1 ea 09/25/23 mcg solution for injection tizanidine 2 mg tablet 2 mg PO 3XD PRN for muscle spasm 10/07/23 #270 tabs albuterol sulfate 90 mcg/actuation 2 puff inhalation Q6H PRN 12/27/23 aerosol inhaler shortness of breath or wheezing #8.5 grams levothyroxine 88 mcg tablet 88 mcg PO DAILY #90 tabs 01/15/24 amlodipine 5 mg tablet See Rx Instructions .Route 01/30/24 .COMPLEX #90 tabs citalopram 40 mg tablet 40 mg PO DAILY #90 tabs 02/14/24 ondansetron 4 mg disintegrating 4 mg PO Q8H PRN nausea and 04/15/24 tablet vomiting #30 tabs tramadol 50 mg tablet 50 mg PO Q8H PRN pain #12 tabs 04/15/24 Allergies Allergy/AdvReac Type Severity Reaction Status Date / Time tramadol Allergy Severe Anaphylaxis Verified 05/15/24 10:46 hydrocodone [HYDROCODONE] Allergy Intermediate NAUSEA / Verified 05/15/24 10:46 VOMITING Sulfa (Sulfonamide Allergy Mild Hives Verified 05/15/24 10:46 Antibiotics) [SULFA (SULFONAMIDE ANTIBIOTICS)] fentanyl AdvReac Severe Vomiting Verified 05/15/24 10:46 morphine [MORPHINE] AdvReac Mild Vomiting Verified 05/15/24 10:46 OPITATES Allergy Intermediate Gastrointestinal Uncoded 05/15/24 10:46 Upset Review of Systems Review of Systems ROS Unobtainable: All systems reviewed & are unremarkable except as noted in HPI and below Patient History Medical History Left arm pain Acute cystitis with positive culture Chronic cough History of myocardial infarction Anemia Medicare annual wellness visit, subsequent Encounter for wellness examination in adult Cellulitis Eczema Trochanteric bursitis, left hip Diverticulosis Well adult exam Breast cyst Carotid stenosis Breast nodule Pulmonary nodules Chronic headache Hyperlipidemia Hyperparathyroidism Chronic kidney disease Paresthesia of left upper extremity Facet arthropathy, lumbosacral Pruritic rash Chronic anticoagulation Foraminal stenosis of cervical region Headache Fractures (~1977) Acne Mumps (~1953) Measles (~1953) Chicken pox (~1948) Cataracts, bilateral (~2013) Hypertension (~1999) Facial abrasion (~10/07/19) Surgical History History of left-sided carotid endarterectomy History of heart artery stent Anesthesia Status post tonsillectomy and adenoidectomy Status post appendectomy Status post tubal ligation Status post dilation and curettage History of cataract removal with insertion of prosthetic lens (~2013) Family History Father Cancer Grandfather Heart disease Grandmother Stroke Mother Cancer Brother No problems noted. Grandfather No problems noted. Grandmother No problems noted. Social History household members: none Smoking Status: Never smoker alcohol intake: never substance use type: does not use Smoking Status: Never smoker alcohol intake frequency: a few times a month Exam Narrative Exam Narrative: GENERAL: Alert and oriented x three, female in mild distress, pale HEENT: Head normocephalic, atraumatic, EOMI, pupils reactive, face symmetric, moist mucous membranes NECK: Supple, full range of motion CARDIOVASCULAR: Regular rate and rhythm without murmurs, rubs or gallops. RESPIRATORY: Breath sounds equal bilaterally, no wheezes rales or rhonchi. ABDOMEN: Soft, nontender. Normoactive bowel sounds all 4 quadrants. No guarding or rebound, rigidity, no mass : No CVA tenderness EXTREMITIES: Normal range of motion, no clubbing or edema. Neurovascularly intact NEUROLOGICAL: Cranial nerves II through XII grossly intact. Moving all extremities SKIN: Warm, dry, no petechiae, no rashes or lesions. Initial Vital Signs Initial Vital Signs: Vital Signs Temperature 97.4 F L 06/29/24 16:58 Pulse Rate 55 L 06/29/24 16:58 Respiratory Rate 18 06/29/24 16:58 Blood Pressure 134/58 L 06/29/24 16:58 Pulse Oximetry 94 06/29/24 16:58 Oxygen Delivery Method Room Air 06/29/24 16:58 Course Orders Ordered: ED Orders 06/29/24 17:08 XR chest 1V Stat EKG-12 Lead Stat Measure peak expiratory flow ONCE RT Consult Eval and Treat NOW 06/29/24 17:15 Complete Blood Count AUTO DIFF Stat Comprehensive Metabolic Panel Stat Lactate (Lactic Acid) Stat NT-proBNP (BNP-Adult 18+) Stat PRBC [Packed Cells] Stat Prothrombin Time INR Stat Troponin I Stat Type and Screen Stat 06/30/24 00:11 Hemoglobin and Hematocrit Stat Discontinued Medications Pantoprazole Sodium (Pantoprazole 40 Mg Vial) 80 mg IV NOW ONE Stop: 06/29/24 20:53 Last Admin: 06/29/24 20:58 Dose: 80 mg Documented By: Vital Signs Vital signs: Vital Signs - 8 hr 06/29/24 16:58 06/29/24 17:15 06/29/24 17:16 Temperature 97.4 F L Pulse Rate 55 L Respiratory Rate 18 Blood Pressure 134/58 L 184/68 H Pulse Oximetry 94 99 Oxygen Delivery Method Room Air 06/29/24 17:16 06/29/24 17:30 06/29/24 17:30 Temperature Pulse Rate 66 53 L Respiratory Rate 17 Blood Pressure 157/68 H Pulse Oximetry 94 98 Oxygen Delivery Method 06/29/24 18:00 06/29/24 18:00 06/29/24 18:30 Temperature Pulse Rate 55 L Respiratory Rate 13 Blood Pressure 157/72 H 173/76 H Pulse Oximetry 96 Oxygen Delivery Method 06/29/24 18:30 06/29/24 19:00 06/29/24 19:00 Temperature Pulse Rate 56 L 57 L Respiratory Rate 19 21 Blood Pressure 152/67 H Pulse Oximetry 98 98 Oxygen Delivery Method 06/29/24 19:30 06/29/24 19:30 06/29/24 20:00 Temperature Pulse Rate 57 L 56 L Respiratory Rate 22 15 Blood Pressure 162/72 H Pulse Oximetry 95 97 Oxygen Delivery Method Room Air 06/29/24 20:01 06/29/24 20:01 06/29/24 20:30 Temperature Pulse Rate 56 L Respiratory Rate 13 Blood Pressure 148/66 H 153/73 H Pulse Oximetry 97 Oxygen Delivery Method 06/29/24 20:30 06/29/24 21:00 06/29/24 21:00 Temperature Pulse Rate 54 L 57 L Respiratory Rate 11 L 21 Blood Pressure 151/67 H Pulse Oximetry 97 98 Oxygen Delivery Method Room Air Room Air 06/29/24 21:15 06/29/24 21:15 06/29/24 21:15 Temperature 98.8 F Pulse Rate 56 L 56 L Respiratory Rate 20 22 Blood Pressure 182/77 H 182/77 H Pulse Oximetry 98 Oxygen Delivery Method 06/29/24 21:30 06/29/24 21:35 06/29/24 21:38 Temperature 98.7 F Pulse Rate 54 L 54 L 57 L Respiratory Rate 22 20 23 Blood Pressure 141/63 H Pulse Oximetry 97 99 Oxygen Delivery Method Room Air Room Air 06/29/24 22:00 06/29/24 22:00 06/29/24 22:30 Temperature Pulse Rate 54 L Respiratory Rate 23 Blood Pressure 143/64 H 134/60 Pulse Oximetry 99 Oxygen Delivery Method Room Air 06/29/24 22:30 06/29/24 23:00 06/29/24 23:01 Temperature Pulse Rate 54 L 52 L Respiratory Rate 21 22 Blood Pressure 163/70 H Pulse Oximetry 97 93 Oxygen Delivery Method 06/29/24 23:01 06/29/24 23:30 06/29/24 23:30 Temperature Pulse Rate 51 L 51 L Respiratory Rate 21 21 Blood Pressure 137/63 Pulse Oximetry 95 93 Oxygen Delivery Method Room Air Room Air 06/30/24 00:00 06/30/24 00:00 Temperature Pulse Rate 52 L Respiratory Rate 23 Blood Pressure 136/63 Pulse Oximetry 94 Oxygen Delivery Method Room Air MDM - Recheck/Abnormal Lab/Rx Lab Data 06/29/24 17:15 06/29/24 17:15 Labs: Lab Results 06/29/24 06/29/24 Range/Units 17:15 19:18 WBC 12.5 H (4.5-11.0) X10^3/uL RBC 1.95 L (4.0-5.2) X10^6/uL Hgb 6.2 L* (12.0-16.0) g/dL Hct 18.9 L* (36-46) % MCV 97.1 (80-100) fL MCH 31.6 (26-34) PG MCHC 32.5 (30-36) % RDW 16.2 H (11.6-14.8) % Plt Count 360 (150-400) X10^3/uL Neut % (Auto) 78.8 H (50-75) % Lymph % (Auto) 11.4 L (25-40) % Hernando % (Auto) 8.0 (3-14) % Eos % (Auto) 1.1 L (2-4) % Baso % (Auto) 0.7 (0-2) % Neut # (Auto) 9800 H (9551-5329) /uL Lymph # (Auto) 1400 (2171-5770) /uL Hernando # (Auto) 1000 H (0-900) /uL Eos # (Auto) 100 (0-450) /uL Baso # (Auto) 100 (0-100) /uL PT 25.3 H (9.4-12.5) SECONDS INR 2.3 H (0.9-1.3) Sodium 133 L (137-145) mmol/L Potassium 4.9 (3.4-5.1) mmol/L Chloride 99 (98-107) mmol/L Carbon Dioxide 19 L (22-32) mmol/L BUN 43 H (7-17) mg/dL Creatinine 1.70 H (0.52-1.04) mg/dL Estimated GFR 30 L (>60) mL/min BUN/Creatinine Ratio 25.3 H (6-22) Glucose 116 H (80-110) mg/dL Lactate 3.9 H 0.7 (0.7-2.1) mmol/L Calcium 10.5 H (8.4-10.2) mg/dL Total Bilirubin 0.3 (0.2-1.3) mg/dL AST 21 (14-36) IU/L ALT 16 (<35) IU/L Alkaline Phosphatase 69 (38-126) U/L Troponin I < 0.012 (0.01-0.034) ng/mL NT-Pro-B Natriuret Pep 1180 H (<450) pg/mL Total Protein 7.1 (6.3-8.2) g/dL Albumin 4.0 (3.5-5.0) g/dL Globulin 3.1 (1.7-4.1) g/dL Albumin/Globulin Ratio 1.3 (1.0-2.8) Blood Type A Positive Antibody Screen Negative Crossmatch See Detail ECG Data Attestation: I personally reviewed and interpreted this ECG as follows: Interpretation: Sinus bradycardia rate of 53 para 172 QRS is 70 8q QTC of 427. No acute ST elevation depression. MDM Narrative Medical decision making narrative: White count of 12.5 hemoglobin is 6.1 was 11.4 in April, platelets are 348. Patient's creatinine is 1.7 was 1.4 on the 15 of April sodium is 133 CO2 is 19 glucose is 116 lactate 3.9 with a repeat of 0.7 a calcium is 10.5 troponins less than 0.012 with a BNP of 780. Chest x-ray shows no acute change EKG shows sinus bradycardia rate of 53, CO 172 QRS is 78 QTC of 427. 79-year-old female anemic with symptoms patient has been on 3 anticoagulants I suspect she probably has GI bleed being on aspirin, Brilinta and Xarelto her doctor told her to stop them today. She was noted little bit of mild diarrhea recently but she has not appreciated any dark or bloody stools although she has not looked recently. She was agreeable to transfusion plan to touch base with hospitalist for admission and possible scope with General surgery. Spoke with Dr. Neal, general surgery at 2058 we will be happy to see patient we will probably start prep tomorrow he will review patient's chart. Spoke with tele hospitalist Dr. Velasco @ 0015, accepts for observation asked if we can recheck H&H 30 minutes after initial unit is completed and then she will decide if additional unit. Discharge Plan Departure Patient Disposition: Admitted as Observation Clinical Impression: Symptomatic anemia Admit Date/Time: 06/30/24 00:14 Admit Provider: Lorena Velasco
[2024-06-29] MEDS: PANTOPRAZOLE 40 MG VIAL 80 MG IV (20:58)
[2024-06-30] VITALS (16 sets, daily range): BP systolic 110–158; BP diastolic 27–72; PULSE 47–63; RESP 12–23; TEMP 35.9–36.6; O2SAT 94–100; BMI 22.8
--- NOTE | 2024-06-30 | PATH_ITS ---
[facility] Accession Number: [id number] No. of containers..01 Tissue . 01 Material submitted: . gastrointestinal site - ANTRUM . 01 Diagnosis: STOMACH, ANTRUM, BIOPSY: Antral mucosa with active erosive gastritis. Negative for Helicobacter organisms and intestinal metaplasia. [facility] [place] 1513 Local . 01 Comment: Immunohistochemistry for Helicobacter organisms is performed and is negative. . Technical Note: The immunohistochemical stains reported were performed with appropriate controls at [facility] ([facility] [address], [facility] [address]). This test was developed and performance characteristics validated by [facility]. It has not been cleared or approved by the Food and Drug Administration. . 01 Electronically signed: . Esther Morel DO, Pathologist NPI- [id number] . 01 Gross description: . ANTRUM: Received in formalin are 3 fragment(s) of johnson, soft tissue measuring 0.2 x 0.2 x 0.2 cm to 0.3 x 0.3 x 0.2 cm submitted entirely in 1 cassette(s) /ARIA 07/01/2024 1741 Local . 01 Pathologist provided ICD-10: R11.2 . 01 CPT . 40397, [id number] Specimen Comment: A courtesy copy of this report has been sent to [phone] Performed at: [address] [place] [address], [place], [place] [id number] MD Ronaldo Burgess MD Phone: [phone]
[2024-06-30 00:56] LABS: Hematocrit 19.9 % (36-46); Hemoglobin 6.7 g/dL (12.0-16.0)
--- NOTE | 2024-06-30 03:17 | PM.HP.1 ---
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, as well as continued on ASA 81 mg, also has h/o CEA of bilat Carotid Arteris with Left sided Carotid artery s/p patch and then stented, has h/o PAD and clauidication in her thighs , h/o HTN, HLD, Hypothyroidism and Parathyroid adenoma/ Hyper Parathyroidism, Depression, h/o LUE DVT ( 7 years ago), CKD stage 3-4, chronic pain sec top DJD, worsened by a fall last fall, with R hip fracture, and R knee meniscal tear, advised to continue pain meds, pt taking Tramadol and Tylenol, using a walker but in chronic R LE pain sec to these injuries, apparently not an operable candidate, has no h/o CHF, though had elevated BNPs on prior labs : 850 Jan 2024, Echo a few years ago : LVEF 60-65%, has not been on diuretics in the past, denies LE edema, Orthopnea, or PND. She was having c/o fatigue, ROMERO, decreased energy, over last 3-4 weeks,and light headedness today, her Cardiology office checked CBC today and was noted to be with moderate Anemia, hb 6.1, she was advised to stop taking all blood thinners : including : Brilinta, Xarelto and ASA and was referred to ED for evaluation for her Anemia. Denies dysuria or hematuria. Pt states she had noted a few days of diarrhea, no abd pain. She denies tarry stools or BRBPR, though has not been looking at her BMs, to note color. Denies N/V , Hematemesis or Coffee grounds. She has not taken NSAIDs recently. She denies CP, abd pain, or syncope . No cough, f/c, severe headaches, or recent trauma or falls. Labs, imaging, VS in ED reviewed. Pt was started on 1 unit PRBC, repeat Hb was 6.7. Was started on secvond unit of PRBC and referred to Hospitalist service for observation. [facility] Medical History (Updated 06/30/24 @ 04:07 by Lorena Velasco MD) Sinus bradycardia CKD stage 3b, GFR 30-44 ml/min Elevated brain natriuretic peptide (BNP) level Chronic right hip pain Left arm pain Acute cystitis with positive culture Chronic cough History of myocardial infarction Anemia Medicare annual wellness visit, subsequent Encounter for wellness examination in adult Cellulitis Eczema Trochanteric bursitis, left hip Diverticulosis Well adult exam Breast cyst Carotid stenosis Breast nodule Pulmonary nodules Chronic headache Hyperlipidemia Hyperparathyroidism Chronic kidney disease Paresthesia of left upper extremity Facet arthropathy, lumbosacral Pruritic rash Chronic anticoagulation Foraminal stenosis of cervical region Headache Fractures (~1977) Acne Mumps (~1953) Measles (~1953) Chicken pox (~1948) Cataracts, bilateral (~2013) Hypertension (~1999) Facial abrasion (~10/07/19) Surgical History History of left-sided carotid endarterectomy History of heart artery stent Anesthesia Status post tonsillectomy and adenoidectomy Status post appendectomy Status post tubal ligation Status post dilation and curettage History of cataract removal with insertion of prosthetic lens (~2013) Family History Father Cancer Grandfather Heart disease Grandmother Stroke Mother Cancer Brother No problems noted. Grandfather No problems noted. Grandmother No problems noted. Social History household members: none Smoking Status: Never smoker alcohol intake: never substance use type: does not use Meds Home Medications and Allergies Home Medications Medication Instructions Recorded Confirmed Type multivitamin-iron 9 mg-folic acid 1 tab PO Q DAY ##0 03/20/11 06/30/24 History 400 mcg-calcium and minerals tablet (Thera M Plus (ferrous fumarate)) ferrous sulfate 325 mg (65 mg 325 mg PO DAILY 03/19/18 06/30/24 History iron) tablet disabled parking permit #1 ea 10/06/19 06/30/24 Rx mecobalamin (vitamin B12) 10,000 1,000 mcg IM QMONTH #1 ea 09/25/23 06/30/24 Rx mcg solution for injection tizanidine 2 mg tablet 2 mg PO 3XD PRN for muscle spasm 10/07/23 06/30/24 Rx #270 tabs albuterol sulfate 90 mcg/actuation 2 puff inhalation Q6H PRN 12/27/23 06/30/24 Rx aerosol inhaler shortness of breath or wheezing #8.5 grams carvedilol 3.125 mg tablet 3.125 mg PO BID 12/27/23 06/30/24 History rosuvastatin 10 mg tablet 10 mg PO ONCE PM 12/27/23 06/30/24 History levothyroxine 88 mcg tablet 88 mcg PO DAILY #90 tabs 01/15/24 06/30/24 Rx citalopram 40 mg tablet 40 mg PO DAILY #90 tabs 02/14/24 06/30/24 Rx ondansetron 4 mg disintegrating 4 mg PO Q8H PRN nausea and 04/15/24 06/30/24 Rx tablet vomiting #30 tabs tramadol 50 mg tablet 50 mg PO Q8H PRN pain #12 tabs 04/15/24 06/30/24 Rx nitroglycerin 0.4 mg sublingual 0.4 mg sublingual PRN PRN Chest 05/15/24 06/30/24 History tablet Pain Allergies Allergy/AdvReac Type Severity Reaction Status Date / Time tramadol Allergy Severe Anaphylaxis Verified 05/15/24 10:46 hydrocodone [HYDROCODONE] Allergy Intermediate NAUSEA / Verified 05/15/24 10:46 VOMITING Sulfa (Sulfonamide Allergy Mild Hives Verified 05/15/24 10:46 Antibiotics) [SULFA (SULFONAMIDE ANTIBIOTICS)] fentanyl AdvReac Severe Vomiting Verified 05/15/24 10:46 morphine [MORPHINE] AdvReac Mild Vomiting Verified 05/15/24 10:46 OPITATES Allergy Intermediate Gastrointestinal Uncoded 05/15/24 10:46 Upset Review of Systems Review of Systems ROS: Yes All systems reviewed with the patient and are negative except as otherwise documented Exam Vital Signs (past 8 hours): - 06/29/24 19:30 06/29/24 19:30 06/29/24 20:00 Temperature Pulse Rate 57 L 56 L Respiratory Rate 22 15 Blood Pressure 162/72 H Pulse Oximetry 95 97 Oxygen Delivery Method Room Air Oxygen Flow Rate 06/29/24 20:01 06/29/24 20:01 06/29/24 20:30 Temperature Pulse Rate 56 L Respiratory Rate 13 Blood Pressure 148/66 H 153/73 H Pulse Oximetry 97 Oxygen Delivery Method Oxygen Flow Rate 06/29/24 20:30 06/29/24 21:00 06/29/24 21:00 Temperature Pulse Rate 54 L 57 L Respiratory Rate 11 L 21 Blood Pressure 151/67 H Pulse Oximetry 97 98 Oxygen Delivery Method Room Air Room Air Oxygen Flow Rate 06/29/24 21:15 06/29/24 21:15 06/29/24 21:15 Temperature 98.8 F Pulse Rate 56 L 56 L Respiratory Rate 20 22 Blood Pressure 182/77 H 182/77 H Pulse Oximetry 98 Oxygen Delivery Method Oxygen Flow Rate 06/29/24 21:30 06/29/24 21:35 06/29/24 21:38 Temperature 98.7 F Pulse Rate 54 L 54 L 57 L Respiratory Rate 22 20 23 Blood Pressure 141/63 H Pulse Oximetry 97 99 Oxygen Delivery Method Room Air Room Air Oxygen Flow Rate 06/29/24 22:00 06/29/24 22:00 06/29/24 22:30 Temperature Pulse Rate 54 L Respiratory Rate 23 Blood Pressure 143/64 H 134/60 Pulse Oximetry 99 Oxygen Delivery Method Room Air Oxygen Flow Rate 06/29/24 22:30 06/29/24 23:00 06/29/24 23:01 Temperature Pulse Rate 54 L 52 L Respiratory Rate 21 22 Blood Pressure 163/70 H Pulse Oximetry 97 93 Oxygen Delivery Method Oxygen Flow Rate 06/29/24 23:01 06/29/24 23:30 06/29/24 23:30 Temperature Pulse Rate 51 L 51 L Respiratory Rate 21 21 Blood Pressure 137/63 Pulse Oximetry 95 93 Oxygen Delivery Method Room Air Room Air Oxygen Flow Rate 06/30/24 00:00 06/30/24 00:00 06/30/24 00:30 Temperature Pulse Rate 52 L 54 L Respiratory Rate 23 19 Blood Pressure 136/63 Pulse Oximetry 94 95 Oxygen Delivery Method Room Air Oxygen Flow Rate 06/30/24 00:31 06/30/24 00:31 06/30/24 00:50 Temperature 97.0 F L Pulse Rate 53 L 57 L Respiratory Rate 21 19 Blood Pressure 130/58 L 146/36 H Pulse Oximetry 94 97 Oxygen Delivery Method Room Air Oxygen Flow Rate 0 06/30/24 01:31 06/30/24 01:47 Temperature 97 F L 97.2 F L Pulse Rate 57 L 47 L Respiratory Rate 20 16 Blood Pressure 144/36 H 134/34 L Pulse Oximetry Oxygen Delivery Method Oxygen Flow Rate Oxygen Delivery Method Room Air Oxygen Flow Rate 0 Narrative Exam Narrative: Physical exam: Pleasant elderly female laying in bed , in NAD, able to answer questions appropriately. Denies CP or Abd Pain. Has on goingf chronic discomfort in her R hip and R knee. HEENT: At/ NC EOMI, PERRL, Non icteric Sclerae Neck is supple, no TMG, no JVD, no adenopathy Oral mmm Chest : CTA , BS equal bilat. No w/ Rales or Rhonchi, Heart: RRR no M/G/R Abd : Soft , NT, ND , No HSM, no flank tenderness. BS present and WNL No Flank Tenderness Ext: No edema, no calf tenderness bilat. PP 2 + symmetric Decreased ROM R Hip and Knee Skin : Pallo + , warm and dry, no rashes or petechiae Neuro : A and O x 3 , non focal Psyche: Good Insight and judgement. Objective Labs 06/30/24 00:15 06/29/24 17:15 Labs: Laboratory Results - last 24 hr 06/29/24 06/29/24 06/30/24 17:15 19:18 00:15 WBC 12.5 H RBC 1.95 L Hgb 6.2 L* 6.7 L* Hct 18.9 L* 19.9 L* MCV 97.1 MCH 31.6 MCHC 32.5 RDW 16.2 H Plt Count 360 Neut % (Auto) 78.8 H Lymph % (Auto) 11.4 L [place] % (Auto) 8.0 Eos % (Auto) 1.1 L Baso % (Auto) 0.7 Neut # (Auto) 9800 H Lymph # (Auto) 1400 [place] # (Auto) 1000 H Eos # (Auto) 100 Baso # (Auto) 100 PT 25.3 H INR 2.3 H Sodium 133 L Potassium 4.9 Chloride 99 Carbon Dioxide 19 L BUN 43 H Creatinine 1.70 H Estimated GFR 30 L BUN/Creatinine Ratio 25.3 H Glucose 116 H Lactate 3.9 H 0.7 Calcium 10.5 H Total Bilirubin 0.3 AST 21 ALT 16 Alkaline Phosphatase 69 Troponin I < 0.012 NT-Pro-B Natriuret Pep 1180 H Total Protein 7.1 Albumin 4.0 Globulin 3.1 Albumin/Globulin Ratio 1.3 Blood Type A Positive Antibody Screen Negative Crossmatch See Detail Assessment & Plan Assessment and plan (1) Symptomatic anemia: Problem details: Acute ( likely) blood loss Anemia , likely UGIB , though mild diarrhea reported ( color of stools not observed by pt), possibility of Diverticular bleed possibility, has h/o of Diverticuli per pt. HH today in ED : 6.2/ 18.9 Prior H/H 11.4/34.5 on 04-15-24 Plat WNL On blood thinners as noted per HPI INR up at 2.3 No active bleeding Pt has recd 1 unit PRBC, hb 6.7, 2nd PRBC started, shall check HH after this unit finishes. Recd Protonix 80 mg IV in ED, continue q 12 hrs Monitor for any transfusion reactions or fluid overload. Pt denies prior Blood Transfusions. Hold all blood thinners Monitor INR Had colonoscopy ( screening) 9 years ago, per pt : normal study ( h/o diverticulosis ) No Prior EGD done Monitor HH q 4 hrs and prn Stool for [facility] Dr Neal consulted per ED, for consultation for endoscopy: they shall see pt in the morning and start colonoscopy prep then. Status: Acute (2) Chronic right hip pain: Problem details: and R knee pain/ see HPI Order Home Tramadol and Tylenol prn Status: Acute (3) Elevated brain natriuretic peptide (BNP) level: Problem details: No evidence clinically of fluid over load CXR : no pleural effusions, no Pulm edema. No LE edema Pro BNP up at 1180 Shall monitor for now Hold Diuretics Caution with developing fluid overload, as PRBCs administered Not requiring supp O2 , is not tachpneic Shall obtain Echo : eval LVEF Status: Acute (4) CKD stage 3b, GFR 30-44 ml/min: Problem details: creat 1.70/ BUN 43 latter partly sec to GIB Monitor Renal function Avoid Nephro toxic meds Status: Acute (5) Sinus bradycardia: Problem details: sinus bradycardia chronic asymptomatic ,HR low 50s, SBPs stable Continue Cardiac monitoring Hold Carvedilol Status: Acute (6) History of left-sided carotid endarterectomy: Status: Acute (7) History of myocardial infarction: Problem details: h/o 2 x cor stents , no CP, Troponin not elevated. Monitor closely for any hemodynamic compromise / type 2 CT, francisco javier given moderate Anemia Status: Acute Time-Based Coding :: [TOTAL MINUTES] spent with patient and on the chart (including review of chart, obtaining history, exam, reviewing outside data, placing orders, documenting exam and treatment plan, and counseling patient) on [DATE].
--- NOTE | 2024-06-30 04:19 | DI.ECHO.S_ITS ---
[facility] : : [address] : : [place] : : [id number] : : Phone: [phone] Echocardiogram Report + + :Name: TESSA COTTON Study Date: 06/30/2024 Height: 65 in : :[facility] ReadingLocation: Weight: 141 lb : : Gender: Female BSA: 1.7 m2 : :: 1945 Age: 79 yrs BP: 123/31 mmHg: :Reason For Study: ELEVATED BNP : :Ordering Physician: ISHA, : :REAGAN Performed By: Sunitha Erickson : :Referring: REAGAN VIEIRA : + + Interpretation Summary Sinus bradycardia with heart rate 52-59 bpm. Normal LV size and wall thickness. Normal wall motion and LV systolic function. Ejection fraction 60-65%. Moderate left atrial enlargement; otherwise normal chamber sizes. No significant valvular abnormalities. Estimated PA systolic pressure is 34 mmHg assuming right atrial pressure of 3 mmHg. Compared to prior echo April 17, 2021, left atrial enlargement has progressed.. Left atrial volume alpa from 32 mL/mA? to 48 mL/mA?. Procedure: A two-dimensional transthoracic echocardiogram with color flow and Doppler was performed. The study quality was technically adequate. Comparison is made with the echocardiogram of 04/17/2021. The patient was in sinus bradycardia with heart rates between 52-59 bpm during the exam. Left Ventricle: The left ventricle is normal in size and wall thickness. The ejection fraction is estimated to be 60-65%. Right Ventricle: The right ventricle is normal in size and function. Atria: The left atrium is moderately dilated. Right atrial size is normal. There is no Doppler evidence for an interatrial shunt. Mitral Valve: The mitral valve leaflets appear mildly thickened, but open well. There is mild to moderate mitral regurgitation. There are multiple regurgitant jets present. Aortic Valve: The aortic valve is trileaflet. The aortic valve opens well. There is no aortic valve stenosis. No aortic regurgitation is present. Tricuspid Valve: The tricuspid valve leaflets are thin and pliable. There is mild tricuspid regurgitation. Pulmonic Valve: The pulmonic valve leaflets are thin and pliable; valve motion is normal. There is no pulmonic valvular regurgitation. Great Vessels: The aortic root is normal size. The dimensions of the ascending aorta are normal. The IVC is of normal diameter and collapses greater than 50% with a sniff. This suggests a low right atrial pressure of 3 mm Hg. Pericardium/ Pleura There is no pericardial effusion. There is no pleural effusion. MMode/2D Measurements & Calculations LVIDd: 4.6 cm LVOT diam: 2.2 cm LVIDs: 2.7 cm Ao root diam: 2.8 cm FS: 40.9 % asc Aorta Diam: 3.4 cm EPSS: 0.61 cm Ao Arch Diam (Prox Trans): 3.2 cm IVSd: 0.82 cm LVPWd: 0.67 cm LV hopkins. diameter/BSA (cm/m^2): 2.7 LV sys. diameter/BSA (cm/m^2): 1.6 LA A2 area: 21.4 cm2 RA long axis: 4.6 cm LA A4 area: 23.4 cm2 RA area: 14.7 cm2 LA length (vol): 5.2 cm RA vol: 39.4 ml LA vol: 82.4 ml RA : 23.1 ml/m2 LA vol index: 48.3 ml/m2 IVC diam: 1.7 cm RVD1 (basal): 3.9 cm RVD2 (mid): 3.3 cm TAPSE: 1.8 cm Doppler Measurements & Calculations Ao V2 max: 176.3 cm/sec LVOT Max Samir: 124.1 cm/sec Ao V2 mean: 122.7 cm/sec LV V1 max P.2 mmHg Ao max P.4 mmHg LV V1 VTI: 31.6 cm Ao mean P.5 mmHg BUBBA(I,D): 2.8 cm2 Ao V2 VTI: 43.1 cm BUBBA(V,D): 2.7 cm2 sev ratio: 0.73 BUBBA indexed to BSA (cm^2/m^2): 1.7 MV E max samir: 112.7 cm/sec TR max samri: 277.1 cm/sec MV A max samir: 96.7 cm/sec TR max P.7 mmHg MV E/A: 1.2 PA V2 max: 103.5 cm/sec Med Peak E' Samir: 9.0 cm/sec PA V2 mean: 74.0 cm/sec E/E' med: 12.5 PA mean P.4 mmHg Lat Peak E' Samir: 11.7 cm/sec PA pr(Accel): 34.0 mmHg E/E' lat: 9.6 E/e' average: 11.1 MV dec time: 0.17 sec SV(LVOT): 122.3 ml Electronically signed by: Janey chilel Reading Physician:06/30/2024 09:57 AM
[2024-06-30 05:56] LABS: Hematocrit 23.9 % (36-46)
[2024-06-30 05:56] LABS: INR 1.4 (0.9-1.3); Prothrombin Time 16.1 SECONDS (9.4-12.5)
[2024-06-30 06:01] LABS: BUN Creatinine Ratio 26.8 (6-22); Blood Urea Nitrogen 40 mg/dL (7-17); Calcium 9.7 mg/dL (8.4-10.2); Carbon Dioxide 24 mmol/L (22-32); Chloride 104 mmol/L (98-107); Estimated Glomerular Filt Rate 36 mL/min (>60); Glucose 97 mg/dL (80-110); HEMOLYSIS < 15 (0-50); Potassium 4.3 mmol/L (3.4-5.1); Sodium 133 mmol/L (137-145)
[2024-06-30 06:07] LABS: HEMOLYSIS < 15 (0-50); Iron 80 ug/dL (37-170)
[2024-06-30 06:18] LABS: Percent Iron Saturation 35 % (15-50); Total Iron Binding Capacity 231 ug/dL (265-497); Transferrin 160 mg/dL (206-381)
[2024-06-30 06:39] LABS: TSH w/ Reflex to FT4 1.02 uIU/mL (0.47-4.68)
[2024-06-30 07:14] LABS: Folate 6.3 ng/mL (2.76-20.0); Vitamin B12 > 1000 pg/mL (239-931)
--- NOTE | 2024-06-30 07:53 | P.HP_ITS ---
History of Present Illness History of Present Illness Date Patient Seen: 06/30/24 Chief complaint: sent by cardiology for abn labs Narrative: From night doctor: 79 y/o F with multiple chronic medical problems, including extensive Cardiac history, including OK in Dec 2023, while on an [place] cruise, she was taken off board to a [facility] and then to [place], where she had Cardiac cath done and 2 [address] stents pl;aced, was started on Brilinta at that time, and 3 months later Xarelto was added per her Museum Librarian, as well as continued on ASA 81 mg, also has h/o CEA of bilat Carotid Arteris with Left sided Carotid artery s/p patch and then stented, has h/o PAD and clauidication in her thighs , h/o HTN, HLD, Hypothyroidism and Parathyroid adenoma/ Hyper Parathyroidism, Depression, h/o LUE DVT ( 7 years ago), CKD stage 3-4, chronic pain sec top DJD, worsened by a fall last fall, with R hip fracture, and R knee meniscal tear, advised to continue pain meds, pt taking Tramadol and Tylenol, using a walker but in chronic R LE pain sec to these injuries, apparently not an operable candidate, has no h/o CHF, though had elevated BNPs on prior labs : 850 Jan 2024, Echo a few years ago : LVEF 60-65%, has not been on diuretics in the past, denies LE edema, Orthopnea, or PND. She was having c/o fatigue, ROMERO, decreased energy, over last 3-4 weeks,and light headedness today, her Cardiology office checked CBC today and was noted to be with moderate Anemia, hb 6.1, she was advised to stop taking all blood thinners : including Brilinta, Xarelto and ASA and was referred to ED for evaluation for her Anemia. Denies dysuria or hematuria. Patient states she had noted a few days of diarrhea, no abd pain. She denies tarry stools or BRBPR, though has not been looking at her BMs, to note color. Denies N/V , Hematemesis or Coffee grounds. She has not taken NSAIDs recently. She denies CP, abd pain, or syncope. No cough, f/c, severe headaches, or recent trauma or falls. Labs, imaging, VS in ED reviewed. Pt was started on 1 unit PRBC, repeat Hb was 6.7. Was started on secvond unit of PRBC and referred to Hospitalist service for observation. S: Last hemoglobin was 8.1. She feels much better. No chest pain, or dyspnea. The plan is for endoscopy this afternoon at 3:00 p.m.. She does not look at her bowel movements and does not know if there has been any melena or rectal blood. [facility] Medical History Sinus bradycardia CKD stage 3b, GFR 30-44 ml/min Elevated brain natriuretic peptide (BNP) level Chronic right hip pain Left arm pain Acute cystitis with positive culture Chronic cough History of myocardial infarction Anemia Medicare annual wellness visit, subsequent Encounter for wellness examination in adult Cellulitis Eczema Trochanteric bursitis, left hip Diverticulosis Well adult exam Breast cyst Carotid stenosis Breast nodule Pulmonary nodules Chronic headache Hyperlipidemia Hyperparathyroidism Chronic kidney disease Paresthesia of left upper extremity Facet arthropathy, lumbosacral Pruritic rash Chronic anticoagulation Foraminal stenosis of cervical region Headache Fractures (~1977) Acne Mumps (~1953) Measles (~1953) Chicken pox (~1948) Cataracts, bilateral (~2013) Hypertension (~1999) Facial abrasion (~10/07/19) Surgical History History of left-sided carotid endarterectomy History of heart artery stent Anesthesia Status post tonsillectomy and adenoidectomy Status post appendectomy Status post tubal ligation Status post dilation and curettage History of cataract removal with insertion of prosthetic lens (~2013) Family History Father Cancer Grandfather Heart disease Grandmother Stroke Mother Cancer Brother No problems noted. Grandfather No problems noted. Grandmother No problems noted. Social History household members: none Smoking Status: Never smoker alcohol intake: never substance use type: does not use Meds Home Medications and Allergies Home Medications Medication Instructions Recorded Confirmed Type multivitamin-iron 9 mg-folic acid 1 tab PO Q DAY ##0 03/20/11 06/30/24 History 400 mcg-calcium and minerals tablet (Thera M Plus (ferrous fumarate)) ferrous sulfate 325 mg (65 mg 325 mg PO DAILY 03/19/18 06/30/24 History iron) tablet disabled parking permit #1 ea 10/06/19 06/30/24 Rx mecobalamin (vitamin B12) 10,000 1,000 mcg IM QMONTH #1 ea 09/25/23 06/30/24 Rx mcg solution for injection tizanidine 2 mg tablet 2 mg PO 3XD PRN for muscle spasm 10/07/23 06/30/24 Rx #270 tabs albuterol sulfate 90 mcg/actuation 2 puff inhalation Q6H PRN 12/27/23 06/30/24 Rx aerosol inhaler shortness of breath or wheezing #8.5 grams carvedilol 3.125 mg tablet 3.125 mg PO BID 12/27/23 06/30/24 History rosuvastatin 10 mg tablet 10 mg PO ONCE PM 12/27/23 06/30/24 History levothyroxine 88 mcg tablet 88 mcg PO DAILY #90 tabs 01/15/24 06/30/24 Rx citalopram 40 mg tablet 40 mg PO DAILY #90 tabs 02/14/24 06/30/24 Rx ondansetron 4 mg disintegrating 4 mg PO Q8H PRN nausea and 04/15/24 06/30/24 Rx tablet vomiting #30 tabs tramadol 50 mg tablet 50 mg PO Q8H PRN pain #12 tabs 04/15/24 06/30/24 Rx nitroglycerin 0.4 mg sublingual 0.4 mg sublingual PRN PRN Chest 05/15/24 06/30/24 History tablet Pain Allergies Allergy/AdvReac Type Severity Reaction Status Date / Time tramadol Allergy Severe Anaphylaxis Verified 05/15/24 10:46 hydrocodone [HYDROCODONE] Allergy Intermediate NAUSEA / Verified 05/15/24 10:46 VOMITING Sulfa (Sulfonamide Allergy Mild Hives Verified 05/15/24 10:46 Antibiotics) [SULFA (SULFONAMIDE ANTIBIOTICS)] fentanyl AdvReac Severe Vomiting Verified 05/15/24 10:46 morphine [MORPHINE] AdvReac Mild Vomiting Verified 05/15/24 10:46 OPITATES Allergy Intermediate Gastrointestinal Uncoded 05/15/24 10:46 Upset Review of Systems Review of Systems Narrative: All else reviewed and otherwise unremarkable except as noted in the history and physical. Exam Vital Signs (past 8 hours): - 06/30/24 00:00 06/30/24 00:00 06/30/24 00:30 Temperature Pulse Rate 52 L 54 L Respiratory Rate 23 19 Blood Pressure 136/63 Pulse Oximetry 94 95 Oxygen Delivery Method Room Air Oxygen Flow Rate 06/30/24 00:31 06/30/24 00:31 06/30/24 00:50 Temperature 97.0 F L Pulse Rate 53 L 57 L Respiratory Rate 21 19 Blood Pressure 130/58 L 146/36 H Pulse Oximetry 94 97 Oxygen Delivery Method Room Air Oxygen Flow Rate 0 06/30/24 01:31 06/30/24 01:46 06/30/24 04:00 Temperature 97 F L 97.2 F L 97.0 F L Pulse Rate 57 L 47 L 63 Respiratory Rate 20 16 18 Blood Pressure 144/36 H 134/34 L 129/39 L Pulse Oximetry 99 Oxygen Delivery Method Oxygen Flow Rate 0 06/30/24 04:12 Temperature 97.2 F L Pulse Rate 56 L Respiratory Rate 17 Blood Pressure 123/31 L Pulse Oximetry Oxygen Delivery Method Oxygen Flow Rate Oxygen Delivery Method Room Air Oxygen Flow Rate 0 Narrative Exam Narrative: NAD, alert and oriented, fluent speech, calm. Normocephalic skull, EOMI, anicteric sclera, symmetric pupils. Oropharynx unremarkable, no droop. Neck supple, midline trachea, no adenopathy. Lungs clear, normal rate and effort. Heart regular, no murmur gallop or rub. Abdomen is soft, non distended and non tender. Extremities are free of edema. Skin is free of rash or lesions. Joints are not swollen or deformed. Judgment appears to be normal. Objective ECG Impression: Sinus bradycardia Imaging Chest x-ray: Radiologist's impression: IMPRESSION: No acute cardiopulmonary pathology. Labs 06/30/24 05:00 06/30/24 05:00 Labs: Laboratory Results - last 24 hr 06/29/24 06/29/24 06/30/24 17:15 19:18 00:15 WBC 12.5 H RBC 1.95 L Hgb 6.2 L* 6.7 L* Hct 18.9 L* 19.9 L* MCV 97.1 MCH 31.6 MCHC 32.5 RDW 16.2 H Plt Count 360 Neut % (Auto) 78.8 H Lymph % (Auto) 11.4 L [place] % (Auto) 8.0 Eos % (Auto) 1.1 L Baso % (Auto) 0.7 Neut # (Auto) 9800 H Lymph # (Auto) 1400 [place] # (Auto) 1000 H Eos # (Auto) 100 Baso # (Auto) 100 PT 25.3 H INR 2.3 H Sodium 133 L Potassium 4.9 Chloride 99 Carbon Dioxide 19 L BUN 43 H Creatinine 1.70 H Estimated GFR 30 L BUN/Creatinine Ratio 25.3 H Glucose 116 H Lactate 3.9 H 0.7 Calcium 10.5 H Iron TIBC % Saturation Transferrin Total Bilirubin 0.3 AST 21 ALT 16 Alkaline Phosphatase 69 Troponin I < 0.012 NT-Pro-B Natriuret Pep 1180 H Total Protein 7.1 Albumin 4.0 Globulin 3.1 Albumin/Globulin Ratio 1.3 Vitamin B12 Folate TSH Blood Type A Positive Antibody Screen Negative Crossmatch See Detail 06/30/24 06/30/24 04:54 05:00 WBC RBC Hgb 8.0 L Hct 23.9 L MCV MCH MCHC RDW Plt Count Neut % (Auto) Lymph % (Auto) [place] % (Auto) Eos % (Auto) Baso % (Auto) Neut # (Auto) Lymph # (Auto) [place] # (Auto) Eos # (Auto) Baso # (Auto) PT 16.1 H D INR 1.4 H Sodium 133 L Potassium 4.3 Chloride 104 Carbon Dioxide 24 BUN 40 H Creatinine 1.49 H Estimated GFR 36 L BUN/Creatinine Ratio 26.8 H Glucose 97 Lactate Calcium 9.7 Iron 80 TIBC 231 L % Saturation 35 D Transferrin 160 L Total Bilirubin AST ALT Alkaline Phosphatase Troponin I NT-Pro-B Natriuret Pep Total Protein Albumin Globulin Albumin/Globulin Ratio Vitamin B12 > 1000 H Folate 6.3 TSH 1.02 Blood Type Antibody Screen Crossmatch Assessment & Plan Assessment & Plan narrative: 1. Symptomatic anemia, present on admission and active. Acute ( likely) blood loss Anemia , likely UGIB , though mild diarrhea reported ( color of stools not observed by pt), possibility of Diverticular bleed possibility, has h/o of Diverticuli per pt. HH today in ED : 6.2/ 18.9 Prior H/H 11.4/34.5 on 04-15-24 Forgot Plat WNL On blood thinners as noted per HPI INR up at 2.3 No active bleeding Pt has recd 1 unit PRBC, hb 6.7, 2nd PRBC given. Recd Protonix 80 mg IV in ED, continue q 12 hrs Monitor for any transfusion reactions or fluid overload. Pt denies prior Blood Transfusions. Hold all blood thinners Monitor INR Had colonoscopy ( screening) 9 years ago, per pt : normal study ( h/o diverticulosis ) No Prior EGD done Monitor HH q 4 hrs and prn Stool for [facility] Dr Neal consulted per ED, for consultation for endoscopy: they shall see pt in the morning and start colonoscopy prep then. 2. Chronic right hip pain, stable. and R knee pain/ see HPI Order Home Tramadol and Tylenol prn 3. Elevated brain natriuretic peptide (BNP) level, active. No evidence clinically of fluid over load CXR : no pleural effusions, no Pulm edema. No LE edema Pro BNP up at 1180 Shall monitor for now Hold Diuretics Caution with developing fluid overload, as PRBCs administered Not requiring supp O2 , is not tachpneic Shall obtain Echo : eval LVEF 4. CKD stage 3b, GFR 30-44 ml/min, active and stable. Creat 1.70/ BUN 43 latter partly sec to GIB Monitor Renal function 5. Sinus bradycardia, active. sinus bradycardia chronic asymptomatic ,HR low 50s, SBPs stable Continue Cardiac monitoring Hold Carvedilol 6. History of left-sided carotid endarterectomy, stable. 7. History of myocardial infarction, stable. h/o 2 x cor stents , no CP, Troponin not elevated. Monitor closely for any hemodynamic compromise / type 2 OK, francisco javier given moderate Anemia PLAN: -surgery consult for EGD @15:00. -2nd unit of PRBC given. -Continue PPI. -possibly home afterwards if hemoglobin remains stable and EGD is unremarkable. Time-Based Coding :: 35 min spent with patient and on the chart (including review of chart, obtaining history, exam, reviewing outside data, placing orders, documenting exam and treatment plan, and counseling patient) on 06/30/24. Quality MIPS - Admit I confirm the patient?s Advance Care Plan is present, Code status is documented, Surrogate decision maker is in patient?s record [If Yes, STOP here]: Yes MIPS - Meds 'Current medications' to include all prescriptions, [id number] products, herbals, cannabis/cannabidiol products, and vitamin/mineral/dietary (nutritional) supplements. I have utilized all available resources to obtain, update, or review the patient?s current medications. [If Yes, STOP here]: Yes
--- NOTE | 2024-06-30 09:20 | PM.CN.IH.1 ---
History of Present Illness Consult details Date Patient Seen: 06/30/24 Time Patient Seen: 09:20 Chief complaint: sent by cardiology for abn labs Narrative: Heather is a 79-year-old woman who presented to the ER with anemia last night. Her initial hemoglobin was 6.2 She received 2 units of packed red blood cells and hemoglobin has come up to 8 this morning. She feels more alert. She has not noted any melena or hematochezia however she does not usually look. She did have a normal colonoscopy with Dr. Soares in 2021. She does not take NSAIDs or corticosteroids. Meds Home Medications and Allergies Home Medications Medication Instructions Recorded Confirmed Type multivitamin-iron 9 mg-folic acid 1 tab PO Q DAY ##0 03/20/11 06/30/24 History 400 mcg-calcium and minerals tablet (Thera M Plus (ferrous fumarate)) ferrous sulfate 325 mg (65 mg 325 mg PO DAILY 03/19/18 06/30/24 History iron) tablet disabled parking permit #1 ea 10/06/19 06/30/24 Rx mecobalamin (vitamin B12) 10,000 1,000 mcg IM QMONTH #1 ea 09/25/23 06/30/24 Rx mcg solution for injection tizanidine 2 mg tablet 2 mg PO 3XD PRN for muscle spasm 10/07/23 06/30/24 Rx #270 tabs albuterol sulfate 90 mcg/actuation 2 puff inhalation Q6H PRN 12/27/23 06/30/24 Rx aerosol inhaler shortness of breath or wheezing #8.5 grams carvedilol 3.125 mg tablet 3.125 mg PO BID 12/27/23 06/30/24 History rosuvastatin 10 mg tablet 10 mg PO ONCE PM 12/27/23 06/30/24 History levothyroxine 88 mcg tablet 88 mcg PO DAILY #90 tabs 01/15/24 06/30/24 Rx citalopram 40 mg tablet 40 mg PO DAILY #90 tabs 02/14/24 06/30/24 Rx ondansetron 4 mg disintegrating 4 mg PO Q8H PRN nausea and 04/15/24 06/30/24 Rx tablet vomiting #30 tabs tramadol 50 mg tablet 50 mg PO Q8H PRN pain #12 tabs 04/15/24 06/30/24 Rx nitroglycerin 0.4 mg sublingual 0.4 mg sublingual PRN PRN Chest 05/15/24 06/30/24 History tablet Pain Allergies Allergy/AdvReac Type Severity Reaction Status Date / Time tramadol Allergy Severe Anaphylaxis Verified 05/15/24 10:46 hydrocodone [HYDROCODONE] Allergy Intermediate NAUSEA / Verified 05/15/24 10:46 VOMITING Sulfa (Sulfonamide Allergy Mild Hives Verified 05/15/24 10:46 Antibiotics) [SULFA (SULFONAMIDE ANTIBIOTICS)] fentanyl AdvReac Severe Vomiting Verified 05/15/24 10:46 morphine [MORPHINE] AdvReac Mild Vomiting Verified 05/15/24 10:46 OPITATES Allergy Intermediate Gastrointestinal Uncoded 05/15/24 10:46 Upset Exam Vital Signs (past 8 hours): - 06/30/24 01:31 06/30/24 01:46 06/30/24 04:00 Temperature 97 F L 97.2 F L 97.0 F L Pulse Rate 57 L 47 L 63 Respiratory Rate 20 16 18 Blood Pressure 144/36 H 134/34 L 129/39 L Pulse Oximetry 99 Oxygen Flow Rate 0 06/30/24 04:12 Temperature 97.2 F L Pulse Rate 56 L Respiratory Rate 17 Blood Pressure 123/31 L Pulse Oximetry Oxygen Flow Rate Oxygen Delivery Method Room Air Oxygen Flow Rate 0 Const General: No acute distress Resp Effort & Inspection: normal respiratory effort Objective Labs 06/30/24 05:00 06/30/24 05:00 Labs: Laboratory Results - last 24 hr 06/29/24 06/29/24 06/30/24 17:15 19:18 00:15 WBC 12.5 H RBC 1.95 L Hgb 6.2 L* 6.7 L* Hct 18.9 L* 19.9 L* MCV 97.1 MCH 31.6 MCHC 32.5 RDW 16.2 H Plt Count 360 Neut % (Auto) 78.8 H Lymph % (Auto) 11.4 L [place] % (Auto) 8.0 Eos % (Auto) 1.1 L Baso % (Auto) 0.7 Neut # (Auto) 9800 H Lymph # (Auto) 1400 [place] # (Auto) 1000 H Eos # (Auto) 100 Baso # (Auto) 100 PT 25.3 H INR 2.3 H Sodium 133 L Potassium 4.9 Chloride 99 Carbon Dioxide 19 L BUN 43 H Creatinine 1.70 H Estimated GFR 30 L BUN/Creatinine Ratio 25.3 H Glucose 116 H Lactate 3.9 H 0.7 Calcium 10.5 H Iron TIBC % Saturation Transferrin Total Bilirubin 0.3 AST 21 ALT 16 Alkaline Phosphatase 69 Troponin I < 0.012 NT-Pro-B Natriuret Pep 1180 H Total Protein 7.1 Albumin 4.0 Globulin 3.1 Albumin/Globulin Ratio 1.3 Vitamin B12 Folate TSH Blood Type A Positive Antibody Screen Negative Crossmatch See Detail 06/30/24 06/30/24 04:54 05:00 WBC RBC Hgb 8.0 L Hct 23.9 L MCV MCH MCHC RDW Plt Count Neut % (Auto) Lymph % (Auto) [place] % (Auto) Eos % (Auto) Baso % (Auto) Neut # (Auto) Lymph # (Auto) [place] # (Auto) Eos # (Auto) Baso # (Auto) PT 16.1 H D INR 1.4 H Sodium 133 L Potassium 4.3 Chloride 104 Carbon Dioxide 24 BUN 40 H Creatinine 1.49 H Estimated GFR 36 L BUN/Creatinine Ratio 26.8 H Glucose 97 Lactate Calcium 9.7 Iron 80 TIBC 231 L % Saturation 35 D Transferrin 160 L Total Bilirubin AST ALT Alkaline Phosphatase Troponin I NT-Pro-B Natriuret Pep Total Protein Albumin Globulin Albumin/Globulin Ratio Vitamin B12 > 1000 H Folate 6.3 TSH 1.02 Blood Type Antibody Screen Crossmatch [facility] Medical History Sinus bradycardia CKD stage 3b, GFR 30-44 ml/min Elevated brain natriuretic peptide (BNP) level Chronic right hip pain Left arm pain Acute cystitis with positive culture Chronic cough History of myocardial infarction Anemia Medicare annual wellness visit, subsequent Encounter for wellness examination in adult Cellulitis Eczema Trochanteric bursitis, left hip Diverticulosis Well adult exam Breast cyst Carotid stenosis Breast nodule Pulmonary nodules Chronic headache Hyperlipidemia Hyperparathyroidism Chronic kidney disease Paresthesia of left upper extremity Facet arthropathy, lumbosacral Pruritic rash Chronic anticoagulation Foraminal stenosis of cervical region Headache Fractures (~1977) Acne Mumps (~1953) Measles (~1953) Chicken pox (~1948) Cataracts, bilateral (~2013) Hypertension (~1999) Facial abrasion (~10/07/19) Surgical History History of left-sided carotid endarterectomy History of heart artery stent Anesthesia Status post tonsillectomy and adenoidectomy Status post appendectomy Status post tubal ligation Status post dilation and curettage History of cataract removal with insertion of prosthetic lens (~2013) Family History Father Cancer Grandfather Heart disease Grandmother Stroke Mother Cancer Brother No problems noted. Grandfather No problems noted. Grandmother No problems noted. Social History household members: none Tobacco & Substance Use Smoking Status: Never smoker alcohol intake: never substance use type: does not use Assessment & Plan Assessment and plan (1) Anemia: Qualifiers: Anemia type: B12 deficiency Vitamin B12 deficiency anemia type: unspecified B12 deficiency Qualified Code(s): D51.9 - Vitamin B12 deficiency anemia, unspecified Status: Acute Plan I recommended we start with an esophagogastroduodenoscopy today. If no obvious source of anemia is found such as an ulcer then we should plan for a colonoscopy tomorrow. Time-Based Coding :: [TOTAL MINUTES] spent with patient and on the chart (including review of chart, obtaining history, exam, reviewing outside data, placing orders, documenting exam and treatment plan, and counseling patient) on [DATE]. PROFEE Charge Codes Inpatient or Observation consultation: 40902
--- NOTE | 2024-06-30 09:45 | PT.IIE ---
Current Diagnoses Vitamin B12 deficiency anemia, unspecified (06/30/24) Anemia, unspecified (06/30/24) Other chronic pain (06/30/24) Old myocardial infarction (06/30/24) Pain in right hip (06/30/24) Chronic kidney disease, stage 3b (06/30/24) Bradycardia, unspecified (06/30/24) Other specified abnormal findings of blood chemistry (06/30/24) Other specified postprocedural states (06/30/24) Surgery Performed Operation Date: 06/30/24 16:30 <No data on this case meets the specified criteria> Surgical History (Last Reviewed 06/30/24 @ 07:55 by Jarrod Benavidez MD) Anesthesia History of cataract removal with insertion of prosthetic lens (~2013) History of heart artery stent History of left-sided carotid endarterectomy Status post appendectomy Status post dilation and curettage Status post tonsillectomy and adenoidectomy Status post tubal ligation Medical History (Last Reviewed 06/30/24 @ 07:55 by Jarrod Benavidez MD) Acne Acute cystitis with positive culture Anemia Breast cyst Breast nodule Carotid stenosis Cataracts, bilateral (~2013) Cellulitis Chicken pox (~1948) Chronic anticoagulation Chronic cough Chronic headache Chronic kidney disease Chronic right hip pain CKD stage 3b, GFR 30-44 ml/min Diverticulosis Eczema Elevated brain natriuretic peptide (BNP) level Encounter for wellness examination in adult Facet arthropathy, lumbosacral Facial abrasion (~10/07/19) Foraminal stenosis of cervical region Fractures (~1977) Headache History of myocardial infarction Hyperlipidemia Hyperparathyroidism Hypertension (~1999) Left arm pain Measles (~1953) Medicare annual wellness visit, subsequent Mumps (~1953) Paresthesia of left upper extremity Pruritic rash Pulmonary nodules Sinus bradycardia Trochanteric bursitis, left hip Well adult exam Physical Therapy Inpatient Evaluation/Re-Eval M1 PT/OT-IP Prior Functional Status Start: 06/30/24 08:15 Freq: NEEDED Status: Active Protocol: Document 06/30/24 09:45 DLM (Rec: 06/30/24 10:36 DLM [id number]) Medical Review Prior Functional Status Medical History Reviewed Yes Diet/Fluid Consistency Regular Communication glasses, WFL Mobility and Gait Independent with 4WW, using 4WW to manage right hip and knee pain, she has a hx of falls Activities of Daily Living and IADL's Independent, Man renting the cottage on her property helps with some cooking such as on the grill, he is providing rides to appointments. She has been having increased difficulty with ADL's since her right LE injuries (approx Apr). Prior Functional Level (Other details) she reports home health services were about to start before this admission Social History Household Members none Living Arrangements House Number of Floors (Floors) One Floor Number of Stairs To Enter/Railing? 3 steps into living room with rails, 3 steps to enter house with rail and cane Home Environment High Toilet,Walk in Shower Home Equipment Four Wheel Walker,Straight Cane,Shower Seat without Backrest,Hand Held Shower Employment Status Retired Additional Social History Comment she has two 4WW's with one on each level of house, she has two canes with one at stairs and one in car M2 PT-IP Current Condition Start: 06/30/24 08:15 Freq: NEEDED Status: Active Protocol: Document 06/30/24 09:45 DLM (Rec: 06/30/24 10:36 DL [id number]) Physical Therapy Current Condition Current Condition Evaluation Date 06/30/24 Treatment Diagnosis anemia, right greater trochanter fx, impaired mobility/gait Onset Date 06/30/24 M3 PT-IP Subjective Start: 06/30/24 08:15 Freq: NEEDED Status: Active Protocol: Document 06/30/24 09:45 DLM (Rec: 06/30/24 10:36 DL [id number]) Subjective Physical Therapy Visit Type Type Initial Evaluation Visit Start Time 09:05 Visit Stop Time 09:45 Notes 40 minutes Number of PSYCHIATRIC SOCIAL WORKER Visits 0 Physical Therapy Visit Comments Patient Comments She reports feeling better since getting blood transfusion. She reports good friend support at home. Home health services were about to start this week before this admission. Patient Goals Discharge home with home health services Therapy Pain Assessment Pain When Pain Assessed During Mobility Pain Present Pain Present Pain Reported Location right hip Intensity 5 Scale Used Numeric (0 - 10) Description Aching,Tender,With Movement Pain Behaviors Wincing Pain Management Techniques Modification of Treatment,Re- positioning M4 PT-IP Mobility and Gait Start: 06/30/24 08:15 Freq: NEEDED Status: Active Protocol: Document 06/30/24 09:45 DLM (Rec: 06/30/24 10:36 DL [id number]) PT-Bed Mobility Assessment Supine to Sit Supine to Sit Standby Assistance Scooting Scooting to Edge of Bed Independent PT-Transfer Assessment Sit to and From Stand Sit to and from Stand Contact Guard Assistance, Minimal Assistance,Use of Upper Extremities Equipment Transfer Assistive Device Gait Belt,Front Wheeled Walker Transfers Transfer Destination Chair,Toilet Transfer Technique Stand Step Pivot Transfer Ability Level of Assist Contact Guard Assistance, Minimal Assistance,Use of Upper Extremities Comments Mobility Comments She wants to pull up on the FWW and is resistance to education to push up from seated surface during sit- stand. During transfers she intermittently leaves FWW behind and attempts to sit before fully stepping back and aligning with the chair. Pt left sitting up in the recliner with needs and call light close. Pt instructed to have staff assist for all mobility/gait. Gait Assessment Gait Gait Assistance Required: Contact Guard Assist Distance (Feet) 25 Assistive Devices Assistive Device Gait Belt,Front Wheeled Walker Gait Deviations General Gait Pattern Antalgic,Step-to Gait Factors Limiting Gait Function Factors Limiting Gait Function Decreased Activity Tolerance, Decreased Strength,Pain,Poor Balance Comments Gait Comments noted pt gets pale during gait , she reports fatigue but not light-headed Stair Climbing Assessment Comments Stair Climbing Comments unable this visit PT-Balance Assessment Sitting Balance and Reactions Static Sitting Balance Ability Normal Dynamic Sitting Balance Ability Normal Standing Balance and Reactions Static Standing Balance Ability Good Dynamic Standing Balance Ability Good Device Used FWW M5 PT-IP Objective Assessments Start: 06/30/24 08:15 Freq: NEEDED Status: Active Protocol: Document 06/30/24 09:45 DL (Rec: 06/30/24 10:36 [facility] [id number]) Orientation Orientation/Cognition Level of Alertness Alert Orientation Name,Age,Birthday,Month,Date, Year,Day of Week,Place, Situation Language Function Ability No Deficits Noted Safety Awareness Understands Safety Issues Memory Description No Deficits Noted Gross Range of Motion Upper Extremity ROM Assessment Within Functional Limits Lower Extremity ROM Assessment Right Impaired Impairments pain in hip and knee, able to move functionally Strength Upper Extremity Strength Assessment Within Functional Limits Lower Extremity Strength Assessment Right Impaired Hip flex 4-/5, abduction not tested due to greater trochanter fx Knee ext 3+/5 flex 4-/5 with pain Ankle DF 4+/5 Coordination Assessment Gross Coordination Gross Coordination WNL Sensation Assessment Sensation Gross Sensation WNL Muscle Tone Muscle Tone WNL Yes M6 PT-IP Treatment Start: 06/30/24 08:15 Freq: NEEDED Status: Active Protocol: Document 06/30/24 09:45 DLM (Rec: 06/30/24 10:36 DLM [id number]) Physical Therapy Treatment Education Education Provided Safety M7 PT-IP Assessment and Plan Start: 06/30/24 08:15 Freq: NEEDED Status: Active Protocol: Document 06/30/24 09:45 DLM (Rec: 06/30/24 10:36 DLM [id number]) PT Summary Assessment and Plan Potential Rehabilitation Potential Good Status of Condition at Evaluation Evolving Summary Impairments Pain,Strength,Balance,Bed Mobility,Transfers,Gait, Activity Tolerance Goals Bed Mobility Goal Independent Transfer Goal Independent,Front Wheeled Walker,Four Wheeled Walker Gait Goal Independent,Front Wheel Walker ,Four Wheel Walker Gait Distance 150 feet Other Goals up/down 3 steps with rail and cane with CG assist Days to Meet Goals 5 Frequency of Treatment Frequency Of Treatment Once a Day Treatment Plan Physical Therapy Treatment Plan Transfer Training,Gait Training,Therapeutic Exercise, Balance Retraining,Discharge Planning,Neuromuscular Re-ed Precautions Other Precautions hx of right greater trochanter fx and right knee meniscus tear from fall 3 months ago ( no Surgery), she has hx of JUDITH Will avoid hip abduction exercises until she has medical clearance. Fall risk with hx of falls Low H&H Weight Bearing Status Allowed Weight Bearing Amount (enter % no known restrictions or #) (%) Recommendations To Nursing Amount of Assist Needed 1 Person Assist Discharge Recommendations PT Discharge Recommendations Home with Assistance,Home Health Transportation Needs at Discharge Private Vehicle - PT assist 1P
[2024-06-30] MEDS: ACETAMINOPHEN 325 MG TABLET 650 MG PO (10:26)
--- NOTE | 2024-06-30 10:48 | OT.IP.EVAL ---
Current Diagnoses Vitamin B12 deficiency anemia, unspecified (06/30/24) Anemia, unspecified (06/30/24) Other chronic pain (06/30/24) Old myocardial infarction (06/30/24) Pain in right hip (06/30/24) Chronic kidney disease, stage 3b (06/30/24) Bradycardia, unspecified (06/30/24) Other specified abnormal findings of blood chemistry (06/30/24) Other specified postprocedural states (06/30/24) Surgery Performed Operation Date: 06/30/24 16:30 <No data on this case meets the specified criteria> Past Medical History (Last Reviewed 06/30/24 @ 07:55 by Jarrod Benavidez MD) Acne Acute cystitis with positive culture Anemia Breast cyst Breast nodule Carotid stenosis Cataracts, bilateral (~2013) Cellulitis Chicken pox (~1948) Chronic anticoagulation Chronic cough Chronic headache Chronic kidney disease Chronic right hip pain CKD stage 3b, GFR 30-44 ml/min Diverticulosis Eczema Elevated brain natriuretic peptide (BNP) level Encounter for wellness examination in adult Facet arthropathy, lumbosacral Facial abrasion (~10/07/19) Foraminal stenosis of cervical region Fractures (~1977) Headache History of myocardial infarction Hyperlipidemia Hyperparathyroidism Hypertension (~1999) Left arm pain Measles (~1953) Medicare annual wellness visit, subsequent Mumps (~1953) Paresthesia of left upper extremity Pruritic rash Pulmonary nodules Sinus bradycardia Trochanteric bursitis, left hip Well adult exam Surgical History (Last Reviewed 06/30/24 @ 07:55 by Jarrod Benavidez MD) Anesthesia History of cataract removal with insertion of prosthetic lens (~2013) History of heart artery stent History of left-sided carotid endarterectomy Status post appendectomy Status post dilation and curettage Status post tonsillectomy and adenoidectomy Status post tubal ligation Occupational Therapy Inpatient Evaluation/Re-Eval M1 PT/OT-IP Prior Functional Status Start: 06/30/24 08:15 Freq: NEEDED Status: Active Protocol: Document 06/30/24 10:47 [facility] (Rec: 06/30/24 11:00 [facility] [id number]) Medical Review Prior Functional Status Medical History Reviewed Yes Diet/Fluid Consistency Regular Communication glasses, WFL Mobility and Gait Independent with 4WW, using 4WW to manage right hip and knee pain, she has a hx of falls Activities of Daily Living and IADL's Independent, Man renting the cottage on her property helps with some cooking such as on the grill, he is providing rides to appointments. She has been having increased difficulty with ADL's since her right LE injuries (approx Apr). Prior Functional Level (Other details) she reports home health services were about to start before this admission Social History Household Members none Living Arrangements House Number of Floors (Floors) One Floor Number of Stairs To Enter/Railing? 3 steps into living room with rails, 3 steps to enter house with rail and cane Home Environment High Toilet,Walk in Shower Home Equipment Four Wheel Walker,Straight Cane,Shower Seat without Backrest,Hand Held Shower,Grab Bars In Shower Employment Status Retired Additional Social History Comment she has two 4WW's with one on each level of house, she has two canes with one at stairs and one in car Pt has an adjustable bed. M2 OT-IP Current Condition Start: 06/30/24 10:46 Freq: Status: Active Protocol: Document 06/30/24 10:47 [facility] (Rec: 06/30/24 11:00 [facility] [id number]) Occupational Therapy Current Condition Current Condition Evaluation Date 06/30/24 Treatment Diagnosis Anemia Diagnosis Onset Date 06/30/24 M3 OT- IP Subjective and Pain Start: 06/30/24 10:46 Freq: Status: Active Protocol: Document 06/30/24 10:47 [facility] (Rec: 06/30/24 11:00 [facility] [id number]) OT- Subjective Occupational Therapy Visit Type Type Initial Evaluation Visit Start Time 10:15 Visit Stop Time 10:48 Occupational Therapy Visit Comments Patient Comments Pt agreed to work with OT Patient/Caregiver Goals TO go home when able. OT Pain Assessment Pain When Pain Assessed During Mobility Pain Present Pain Present Pain Reported Location right hip Intensity 6 Scale Used Numeric (0 - 10) M4 OT- IP ADL's Start: 06/30/24 10:46 Freq: Status: Active Protocol: Document 06/30/24 10:47 [facility] (Rec: 06/30/24 11:00 [facility] [id number]) OT [id number] Comments OT Self-Feeding Comments Not at meal time, no concerns. OT ADL-Grooming Comments OT Grooming Comments Pt just wanting to get back to bed. OT ADL-Oral Care Comments Oral Care Comments Pt states did earlier. OT ADL-Dressing General Eval Lower Body Dressing Ability Standby Assistance Comments OT Dressing Comments Pt able to bend forwards to reach her socks well. OT ADL-Toileting Comments OT Toileting Comments Pt states did earlier and not having to go. OT ADL-Bathing Comments OT Bathing Comments Not performed. M5 OT- IP IADL's Start: 06/30/24 10:46 Freq: Status: Active Protocol: Document 06/30/24 10:47 [facility] (Rec: 06/30/24 11:00 [facility] [id number]) OT-Instrumental Activities of Daily Living Home Safety Awareness Awareness of Need for Assistance at Home Good Awareness Ability to Problem Solve Emergency Able to Problem Solve Situations Medication Management Medication Management Comments Pt states does her own. Money Management Money Management Comments Pt states does her own. Meal Preparation Meal Preparation Comments Pt limited and friends cook BBQ for her at times. Grape Grower Grape Grower Comments Pt states uses her 4ww for IADL needs. Driving Driving Comments Pt states has not been driving lately. M6 OT- IP Functional Cognition Start: 06/30/24 10:46 Freq: Status: Active Protocol: Document 06/30/24 10:47 [facility] (Rec: 06/30/24 11:00 [facility] [id number]) Cognitive Factors Limiting Selfcare Function Cognitive Ability Level of Alertness Alert Patient Orientation Name,Age,Birthday,Month,Date, Year,Day of Week,Place, Situation Attention Span Ability Capable of Focused Attention, Capable of Sustained Attention Ability to Follow Commands Able to Follow One Step Commands Cognitive Comments Cognitive Assessment Comments Pt able to follow commands for mobility needs. Per PT having decreased safety awareness of PT eval. To consider SLUMS and continued education for safety needs. OT- Vision and Hearing OT- Hearing Assessment OT- Hearing Assessment Hearing Impaired,Use of Hearing Aids OT- Vision Assessment Visual Attentiveness WFL Occular Pursuits WFL Vision Assessment Comments Pt uses glasses to watch the TV. M7 OT- IP Mobility and Balance Start: 06/30/24 10:46 Freq: Status: Active Protocol: Document 06/30/24 10:47 [facility] (Rec: 06/30/24 11:00 [facility] [id number]) OT- Bed Mobility Assessment Rolling Level of Assistance Standby Assistance Sit to Supine Sit to Supine Assist Standby Assistance OT-Transfer Assessment Sit to and From Stand Sit to and from Stand Standby Assistance Transfers Transfer Ability Standby Assistance Technique Transfer Destination Bed,Chair Transfer Technique Stand Step Pivot Devices Transfer Assistive Devices Gait Belt,Front Wheeled Walker Comments Mobility Comments SBA to stand from the recliner and able to transfer back to bed with SBA with FWW. Bed alarm turned on for safety per nursing. OT- Balance Assessment Sitting Balance and Reactions Static Sitting Balance Ability Normal Dynamic Sitting Balance Ability Normal Standing Balance and Reactions Static Standing Balance Ability Good Dynamic Standing Balance Ability Good M8 OT- IP Objective Assessments Start: 06/30/24 10:46 Freq: Status: Active Protocol: Document 06/30/24 10:47 [facility] (Rec: 06/30/24 11:00 [facility] [id number]) OT Gross Range of Motion Upper Extremity Range of Motion Assessment Within Functional Limits OT Strength Upper Extremity Strength Assessment Within Functional Limits M9 OT- IP Assessment and Plan Start: 06/30/24 10:46 Freq: Status: Active Protocol: Document 06/30/24 10:47 [facility] (Rec: 06/30/24 11:00 [facility] [id number]) OT Summary Assessment and Plan Potential Rehabilitation Potential Excellent Analytic Complexity at Evaluation Low Summary OT Impairments Pain,Balance,Functional Mobility,Grooming,Dressing, Toileting,Bathing,Toilet Transfers,Shower Transfers, Activity Tolerance Progress Towards Goals Progressing Toward Goals,Slow Progress due to Medical Issues Assessment Summary Pt low complexity and main barrier are pain due to hx fall 3 months ago for right trochanteric fracture and right meniscus tear , decreased activity tolerance, and will benefit on more education for safety awareness . Pt to go home with assist when medically stable and have home health. Goals Self-Feeding Goal Independent Grooming Goal Independent Dressing Goal Independent Toileting Goal Independent Bathing Goal Independent Toilet Transfer Goal Independent Shower Transfer Goal Independent Days to Meet Goals 7 Frequency of Treatment Other frequency 5x/week Treatment Plan OT Treatment Plan ADL Training,Functional Mobility,Patient/Family Education,Discharge Planning Discharge Recommendations OT Discharge Recommendations Home with Assistance,Home Health Transportation Needs at Discharge Private Vehicle
--- NOTE | 2024-06-30 13:43 | CM.DANOTE ---
Addendum entered by LUCIANO Cordova 06/30/24 14:27: Per Vanesa at [facility], recieved clinicals can resume [facility] services at [facility], currently pt is scheduled for PT SOC 07/03/24 but if pt does not dc that can be delayed. pt previously only set up with PT, can add more if necessary. THERMAL CUTTING MACHINE OPERATOR started f2f with just PT, add more disciplines if needed. HH order needed with finalized list of disciplines at [place]. Original Note: DCP Assessment Note pt is a 79yo F admitted with anemia. EGD planned for today 06/30. if no source of bleed found, colonoscopy planned for tomorrow. PCP Zaki Gerber Payer Medicare and Gus Kirby MSW reviewed EMR. PT/OT rec home with . THERMAL CUTTING MACHINE OPERATOR entered room and introduced self and role. pt resting in bed. confirms living home alone in [place] but has two neighbors/friends that live on her property that help her with things as needed. DME: two walkers/cane. neighbors drive her as needed. pt was set to start with [facility] day of admission, prefers to continue with [facility] at [facility]. denies other CM needs/questions at this time. [facility] faxed initial referral information to [facility]. f2f and order needed. P: pending medical stability, anticipate home with [facility] to follow/OP follow up likely rec. alert TCM at [facility]. Will continue to follow in case additional DCP needs arise. LUCIANO Cordova Discharge Planning/Care Management CM Discharge Assessment Start: 06/30/24 13:42 Freq: Status: Active Protocol: Document 06/30/24 13:42 SL (Rec: 06/30/24 13:43 Desktop) Discharge Planning Assessment Assigned Glue Maker Bone LUCIANO Allison Advance Directives? Yes: POLST dated 02/15/17 Advance Directives on File Yes History Provided By Patient,Medical Record Prior Living Arrangements House Household Members none Type of transporation used prior to Relies on Others admit Independent with ADL's Yes Is patient alert and oriented? Yes DME Already Rented / Owned FWW / Walker,Cane Patient/Family Preference Home with Home Health Discharge Plan Home with Home Health Transportation Arrangement friend in POV Referrals Initiated Home Health SNF/HH Preference [facility] Whiteboard Updated in Patient Room with Yes name and ext. # of Glue Maker Bone Review Status In Process Please Provide Date Initial DC 06/30/24 Assessment Was Performed Next Review Type Continued Stay Review
[2024-06-30] MEDS: LACTATED RINGERS 1,000 ML 42 ML IV (15:09)
--- NOTE | 2024-06-30 15:43 | PM.OP.EGD ---
Operative Date/Time/Diagnoses Date of procedure: 06/30/24 Time of procedure: 15:43 Pre-op diagnosis: Anemia Post-op diagnosis: same Procedure & Clinicians Study performed: Esophagogastroduodenoscopy Same procedure as scheduled: Yes Surgeon: Сергей Neal Procedure Notes Procedure in detail: Surgeon: Сергей Neal MD Anesthesia: Laurie Baxter timeout was performed. A bite blocked was placed. The patient was positioned in the left lateral decubitus position. Anesthesia was administered. The endoscope was inserted through the bite block and passed through the esophagus and stomach and into the duodenum. The duodenal mucosa appeared normal. The scope was withdrawn into the duodenal bulb and no abnormalities were seen. The scope was withdrawn into the stomach. Mild antritis was observed and random biopsies were taken with cold forceps from the antrum. The rest of the stomach was normal. The scope was retroflexed and no hiatal hernia was seen. The scope was withdrawn into the esophagus and no abnormalities were seen in the esophagus. The scope was withdrawn. The patient was awakened and brought to recovery. Sedation time: 5 minutes Findings: Mild antritis. No obvious source of anemia was found Post-procedure Disposition: PACU
--- NOTE | 2024-06-30 16:17 | PC.NURSE ---
Pt back to room via stretcher from PACU. Pt is awake and oriented, denies pain, denies shortness of breath. VS checked. O2 RA 99%. Pt denies needs at this time but agrees to call for assistance as needed. Bed alarm on for safety.
[2024-06-30] MEDS: PEG3350/SOD SULF,BICARB,CL/KCL 4,000 ML SOLUTION 2000 ML PO (20:31)
[2024-06-30] MEDS: ONDANSETRON 4 MG/2 ML INJ IV (21:59)
[2024-07-01] VITALS: BP 137/35; PULSE 63; RESP 18; TEMP 35.7; O2SAT 97
[2024-07-01 04:00] VITALS: BP 141/36; PULSE 60; RESP 18; TEMP 36.3; O2SAT 97
[2024-07-01 08:00] VITALS: BP 148/48; PULSE 65; RESP 16; TEMP 36.6; O2SAT 95
[2024-07-01 12:00] VITALS: BP 166/52; PULSE 60; RESP 16; TEMP 36.4; O2SAT 100
--- NOTE | 2024-07-01 12:13 | CM.DPNOTE ---
DCP note AGENCY SERVICE REPRESENTATIVE reviewed EMR per chart review, EGD did not find bleed. colonoscopy planned for later today. pt may dc after colonoscopy vs tomorrow. AGENCY SERVICE REPRESENTATIVE met with pt in room. pt confirms preference to dc home with friend/neighbor support and [facility]. current preference is just for PT with [facility]. denies other CM/DCP needs. AGENCY SERVICE REPRESENTATIVE placed HH order. Emailed [facility] f2f and HH order. f2f behind FS. will send dc summary when available. AGENCY SERVICE REPRESENTATIVE updated TCM P: dc home with friend support later today vs tomorrow with [facility] PT to follow and OP f/u rec. CM team will continue to follow as needed LUCIANO Cordova
[2024-07-01 15:18] LABS: Hematocrit 26.1 % (36-46); Hemoglobin 8.8 g/dL (12.0-16.0)
--- NOTE | 2024-07-01 15:57 | PT-IP ANOTE ---
Pt getting colonoscopy this afternoon and not available for Physical Therapy treatment.
--- NOTE | 2024-07-01 15:58 | OT.IPNOTE ---
Pt suppose to have colonoscopy this PM, to check on pt tomorrow fro OT.
--- NOTE | 2024-07-01 15:58 | OT.IPNOTE ---
Pt having colonoscopy and therefore not able to see for OT treatment today.
--- NOTE | 2024-07-01 17:14 | PM.PN.1 ---
Subjective Subjective Interval history: S: She was comfortable, doing her prep. She initially had black stool which then cleared to brown. Her prep is still not clear in her colonoscopy has been delayed till July 02. Summary: 79 y/o F with multiple chronic medical problems, including extensive Cardiac history, including CA in Dec 2023, while on an [place] cruise, she was taken off board to a [facility] and then to [place], where she had Cardiac cath done and [address];aced, was started on Brilinta at that time, and 3 months later Xarelto was added per her Wool Carder, as well as continued on ASA 81 mg, also has h/o CEA of bilat Carotid Arteris with Left sided Carotid artery s/p patch and then stented, has h/o PAD and clauidication in her thighs , h/o HTN, HLD, Hypothyroidism and Parathyroid adenoma/ Hyper Parathyroidism, Depression, h/o LUE DVT ( 7 years ago), CKD stage 3-4, chronic pain sec top DJD, worsened by a fall last fall, with R hip fracture, and R knee meniscal tear, advised to continue pain meds, pt taking Tramadol and Tylenol, using a walker but in chronic R LE pain sec to these injuries, apparently not an operable candidate, has no h/o CHF, though had elevated BNPs on prior labs : 850 Jan 2024, Echo a few years ago : LVEF 60-65%, has not been on diuretics in the past, denies LE edema, Orthopnea, or PND. She was having c/o fatigue, ROMERO, decreased energy, over last 3-4 weeks,and light headedness today, her Cardiology office checked CBC today and was noted to be with moderate Anemia, hb 6.1, she was advised to stop taking all blood thinners : including Brilinta, Xarelto and ASA and was referred to ED for evaluation for her Anemia. Denies dysuria or hematuria. Patient states she had noted a few days of diarrhea, no abd pain. She denies tarry stools or BRBPR, though has not been looking at her BMs, to note color. Exam Vital Signs (past 8 hours): - 07/01/24 12:00 Temperature 97.5 F L Pulse Rate 60 Respiratory Rate 16 Blood Pressure 166/52 H Pulse Oximetry 100 Oxygen Flow Rate 0 Oxygen Delivery Method Room Air Oxygen Flow Rate 0 Narrative Exam Narrative: NAD, alert and oriented. Fluent speech. Lungs are clear, normal rate and effort. Heart is regular, no murmur gallop or rub. Abdomen is soft, non distended. Extremities are free of edema. Objective ECG Impression: Sinus bradycardia Imaging Multiple studies: : Radiologist's impression: ECHO: Sinus bradycardia with heart rate 52-59 bpm. Normal LV size and wall thickness. Normal wall motion and LV systolic function. Ejection fraction 60-65%. Moderate left atrial enlargement; otherwise normal chamber sizes. No significant valvular abnormalities. Estimated PA systolic pressure is 34 mmHg assuming right atrial pressure of 3 mmHg. Compared to prior echo April 17, 2021, left atrial enlargement has progressed.. Left atrial volume alpa from 32 mL/mA? to 48 mL/mA?. CXR: No acute cardiopulmonary pathology. Labs 07/01/24 15:12 06/30/24 05:00 Labs: Laboratory Results - last 24 hr 07/01/24 15:12 Hgb 8.8 L Hct 26.1 L [facility] Medical History Sinus bradycardia CKD stage 3b, GFR 30-44 ml/min Elevated brain natriuretic peptide (BNP) level Chronic right hip pain Left arm pain Acute cystitis with positive culture Chronic cough History of myocardial infarction Anemia Medicare annual wellness visit, subsequent Encounter for wellness examination in adult Cellulitis Eczema Trochanteric bursitis, left hip Diverticulosis Well adult exam Breast cyst Carotid stenosis Breast nodule Pulmonary nodules Chronic headache Hyperlipidemia Hyperparathyroidism Chronic kidney disease Paresthesia of left upper extremity Facet arthropathy, lumbosacral Pruritic rash Chronic anticoagulation Foraminal stenosis of cervical region Headache Fractures (~1977) Acne Mumps (~1953) Measles (~1953) Chicken pox (~194) Cataracts, bilateral (~2013) Hypertension (~2000) Facial abrasion (~10/07/19) Surgical History History of left-sided carotid endarterectomy History of heart artery stent Anesthesia Status post tonsillectomy and adenoidectomy Status post appendectomy Status post tubal ligation Status post dilation and curettage History of cataract removal with insertion of prosthetic lens (~2013) Family History Father Cancer Grandfather Heart disease Grandmother Stroke Mother Cancer Brother No problems noted. Grandfather No problems noted. Grandmother No problems noted. Social History household members: none Smoking Status: Never smoker alcohol intake: never substance use type: does not use Assessment & Plan Assessment & Plan narrative: 1. Acute blood loss anemia, present on admission and active. On blood thinners as noted per HPI INR up at 2.3 No active bleeding 2 units of blood given. EGD unrevealing. Findings: Mild antritis. No obvious source of anemia was found 2. Black stool with prep. Present on admission and active. 3. Chronic right hip pain, stable. and R knee pain/ see HPI Order Home Tramadol and Tylenol prn 4. CKD stage 3b, GFR 30-44 ml/min, active and stable. Creat 1.70/ BUN 43 latter partly sec to GIB Monitor Renal function 5. Sinus bradycardia, active. sinus bradycardia chronic asymptomatic ,HR low 50s, SBPs stable Continue Cardiac monitoring Hold Carvedilol 6. History of left-sided carotid endarterectomy, stable. 7. History of myocardial infarction, stable. h/o 2 x cor stents , no CP, Troponin not elevated. Monitor closely for any hemodynamic compromise / type 2 CA, francisco javier given moderate Anemia PLAN: -continue bowel prep. -Colonoscopy when prep has cleared (07/02, Dr. Neal) -Monitor Hg. -Holding Xarelto, Brilinta. GUILLERMINA: 07/02 if hemoglobin stable and colonoscopy unrevealing and no further bleeding is seen. Time-Based Coding :: [TOTAL MINUTES] spent with patient and on the chart (including review of chart, obtaining history, exam, reviewing outside data, placing orders, documenting exam and treatment plan, and counseling patient) on [DATE].
[2024-07-01 18:00] VITALS: BP 164/46; PULSE 58; RESP 16; TEMP 36.3; O2SAT 100
[2024-07-01 20:26] VITALS: BP 158/48; PULSE 60; RESP 18; TEMP 36.9; O2SAT 96
[2024-07-02] VITALS (8 sets, daily range): BP systolic 126–189; BP diastolic 46–74; PULSE 59–85; RESP 16–25; TEMP 36.2–37.3; O2SAT 96–100
[2024-07-02 05:59] LABS: Hematocrit 26.6 % (36-46); Hemoglobin 8.9 g/dL (12.0-16.0); Mean Corpuscular HGB Conc 33.5 % (30-36); Mean Corpuscular Hemoglobin 31.3 PG (26-34); Mean Corpuscular Volume 93.5 fL (80-100); Platelet Count 309 X10^3/uL (150-400); Red Blood Cell Count 2.85 X10^6/uL (4.0-5.2); Red Cell Distribution Width 15.4 % (11.6-14.8); White Blood Cell Count 9.1 X10^3/uL (4.5-11.0)
[2024-07-02 06:23] LABS: BUN Creatinine Ratio 12.4 (6-22); Blood Urea Nitrogen 13 mg/dL (7-17); Calcium 9.8 mg/dL (8.4-10.2); Carbon Dioxide 25 mmol/L (22-32); Chloride 100 mmol/L (98-107); Estimated Glomerular Filt Rate 54 mL/min (>60); Glucose 92 mg/dL (80-110); HEMOLYSIS < 15 (0-50); Potassium 3.1 mmol/L (3.4-5.1); Sodium 136 mmol/L (137-145)
--- NOTE | 2024-07-02 10:32 | PT.IPTN ---
Current Diagnoses Vitamin B12 deficiency anemia, unspecified (06/30/24) Anemia, unspecified (06/30/24) Other chronic pain (06/30/24) Old myocardial infarction (06/30/24) Pain in right hip (06/30/24) Chronic kidney disease, stage 3b (06/30/24) Bradycardia, unspecified (06/30/24) Other specified abnormal findings of blood chemistry (06/30/24) Other specified postprocedural states (06/30/24) Surgery Performed Operation Date: 06/30/24 16:30 Actual Procedures p Esophagogastroduodenoscopy BIOPSY - Сергей eNal MD Operation Date: 07/02/24 16:15 <No data on this case meets the specified criteria> Physical Therapy Treatment Note M2 PT-IP Current Condition Start: 06/30/24 08:15 Freq: NEEDED Status: Active Protocol: Document 07/02/24 10:15 SP (Rec: 07/02/24 10:49 SP [id number]) Physical Therapy Current Condition Current Condition Evaluation Date 06/30/24 Treatment Diagnosis anemia, right greater trochanter fx, impaired mobility/gait Onset Date 06/30/24 M3 PT-IP Subjective Start: 06/30/24 08:15 Freq: NEEDED Status: Active Protocol: Document 07/02/24 10:15 SP (Rec: 07/02/24 10:49 SP [id number]) Subjective Physical Therapy Visit Type Type Treatment Note Visit Start Time 10:15 Visit Stop Time 10:32 Number of PSYCHIC READER Visits 1 Physical Therapy Visit Comments Patient Comments Pt agreeable to working with PSYCHIC READER but reports will see what I can do, very low energy and strength with NPO since yesterday and coughing has caused abdominal spasming pain . Patient Goals Discharge home with home health services Therapy Pain Assessment Pain When Pain Assessed During Mobility Pain Present Pain Present Pain Reported Location abdomen Scale Used 4/10 with mobility Pain Behaviors Facial Grimacing,Guarding, Wincing Pain Management Techniques Apply Heat,Elevation, Modification of Treatment,Re- positioning M4 PT-IP Mobility and Gait Start: 06/30/24 08:15 Freq: NEEDED Status: Active Protocol: Document 07/02/24 10:15 SP (Rec: 07/02/24 10:49 SP [id number]) PT-Bed Mobility Assessment Rolling Type of Rolling Log Rolling,Roll to Right,Roll to Left Level of Assist Standby Assistance Supine to Sit Supine to Sit Minimal Assistance,1 Person Assistance,Bedrails Sit to Supine Sit to Supine Moderate Assistance,1 Person Assistance,Bedrails PT-Transfer Assessment Sit to and From Stand Sit to and from Stand Contact Guard Assistance,1 Person Assistance,Use of Upper Extremities Equipment Transfer Assistive Device Gait Belt,Front Wheeled Walker Transfers Transfer Destination Bed Transfer Technique pt ambulated with FWW Transfer Ability Level of Assist Contact Guard Assistance,1 Person Assistance,Use of Upper Extremities Comments Mobility Comments PSYCHIC READER cued pt log roll technique for abdomnal support SBA due to 4/10 pain (from spasming coughing), Min A for trunk support righting SL>sit. Sit> supine Mod A for BLE into bed and bed rail. Gait around room heavy UE support on FWW CGA due to slight trunk sways, multiple stop stand rests due to low endurance. Pt fair standing balance standing at sink UE support on sink required while swabbed dry mouth and spit out access, brushed hair. Pt returned to EOB, cued for sit>SL, Mod A for BLE into bed needed due to abdominal pain. Pt was ableto reposition self in bed, provided pillow under BLEs for back and leg comfort support. Reappled warm blanket over abdomen per pt request, helps comfort. Pt hand call light , bed alarmed due to fall risk at this time. Gait Assessment Gait Gait Assistance Required: Contact Guard Assist Distance (Feet) 35 Assistive Devices Assistive Device Gait Belt,Front Wheeled Walker Gait Deviations General Gait Pattern Antalgic,Step-to Gait Factors Limiting Gait Function Factors Limiting Gait Function Decreased Activity Tolerance, Decreased Strength,Pain,Poor Balance Comments Gait Comments Pt reportes fatigued, heavy BUEs on FWW, multiple stop stand rests. Stair Climbing Assessment Comments Stair Climbing Comments unable this visit due to pain and decreased strength. PT-Balance Assessment Sitting Balance and Reactions Static Sitting Balance Ability Normal Dynamic Sitting Balance Ability Normal Standing Balance and Reactions Static Standing Balance Ability Good Dynamic Standing Balance Ability Fair Device Used FWW M5 PT-IP Objective Assessments Start: 06/30/24 08:15 Freq: NEEDED Status: Active Protocol: Document 06/30/24 09:45 DLM (Rec: 06/30/24 10:36 DLM [id number]) Orientation Orientation/Cognition Level of Alertness Alert Orientation Name,Age,Birthday,Month,Date, Year,Day of Week,Place, Situation Language Function Ability No Deficits Noted Safety Awareness Understands Safety Issues Memory Description No Deficits Noted Gross Range of Motion Upper Extremity ROM Assessment Within Functional Limits Lower Extremity ROM Assessment Right Impaired Impairments pain in hip and knee, able to move functionally Strength Upper Extremity Strength Assessment Within Functional Limits Lower Extremity Strength Assessment Right Impaired Hip flex 4-/5, abduction not tested due to greater trochanter fx Knee ext 3+/5 flex 4-/5 with pain Ankle DF 4+/5 Coordination Assessment Gross Coordination Gross Coordination WNL Sensation Assessment Sensation Gross Sensation WNL Muscle Tone Muscle Tone WNL Yes M6 PT-IP Treatment Start: 06/30/24 08:15 Freq: NEEDED Status: Active Protocol: Document 07/02/24 10:15 SP (Rec: 07/02/24 10:49 SP [id number]) Physical Therapy Treatment Education Education Provided Safety M7 PT-IP Assessment and Plan Start: 06/30/24 08:15 Freq: NEEDED Status: Active Protocol: Document 07/02/24 10:15 SP (Rec: 07/02/24 10:49 SP [id number]) PT Summary Assessment and Plan Potential Rehabilitation Potential Good Status of Condition at Evaluation Evolving Summary Impairments Pain,Strength,Balance,Bed Mobility,Transfers,Gait, Activity Tolerance Progress Towards Goals Slow Progress due to Pain,Slow Progress due to Activity Tolerance Assessment Summary Pt continues decreased energy, endurance and stregth increased support CG/ Min/Mod A for trunk/LE support during bed mobility, gait 35 ft /c FWW CGA mobility, standing at sink CGA. Will continue to assess progress mobility if able later today pt aware, colonoscopy schedule for later today. At this time recommending SNF vs HHPT 29/10 for progress functional strength and mobility. Goals Bed Mobility Goal Independent Transfer Goal Independent,Front Wheeled Walker,Four Wheeled Walker Gait Goal Independent,Front Wheel Walker ,Four Wheel Walker Gait Distance 150 feet Other Goals up/down 3 steps with rail and cane with CG assist Days to Meet Goals 5 Frequency of Treatment Frequency Of Treatment Once a Day Treatment Plan Physical Therapy Treatment Plan Transfer Training,Gait Training,Therapeutic Exercise, Balance Retraining,Discharge Planning,Neuromuscular Re-ed Other Recommendations and Next Treatment Bed mobility, gait and Focus transferswith FWW, stand balance activities, stair mgt 3 enter + 3 inside to livingroom when able. Precautions Other Precautions hx of right greater trochanter fx and right knee meniscus tear from fall 3 months ago ( no Surgery), she has hx of JUDITH Will avoid hip abduction exercises until she has medical clearance. Fall risk with hx of falls Low H&H Weight Bearing Status Allowed Weight Bearing Amount (enter % no known restrictions or #) (%) Recommendations To Nursing Amount of Assist Needed 1 Person Assist Discharge Recommendations PT Discharge Recommendations Home with Assistance,Home with 24/7 Assist Available,Home Health,SNF Rehab,Home vs SNF Transportation Needs at Discharge Private Vehicle,Wheelchair/ Cabulance - PT assist 1P
--- NOTE | 2024-07-02 11:49 | PC.NURSE ---
Addendum entered by Rose Morris R.N. 07/02/24 14:11: 1600 Pt returned to room via bed, VSS, able to make needs known, denies pain, care ongoing Original Note: Pt taken to OR via wheelchair at 1140 VSS, no further pt contact at this time.
[2024-07-02] MEDS: LACTATED RINGERS 1,000 ML 42 ML IV (12:12)
--- NOTE | 2024-07-02 12:51 | PM.PN.IH.1 ---
Subjective Subjective Date Patient Seen: 07/02/24 Time Patient Seen: 12:51 Interval history: Completed prep yesterday Exam Vital Signs (past 8 hours): - 07/02/24 07:00 07/02/24 08:00 07/02/24 12:07 Temperature 97.2 F L 99.1 F Pulse Rate 62 59 L Respiratory Rate 20 16 Blood Pressure 178/53 H 176/74 H Pulse Oximetry 99 100 Oxygen Delivery Method Room Air Room Air Oxygen Flow Rate 0 Oxygen Delivery Method Room Air Oxygen Flow Rate 0 Const General: No acute distress Objective Labs 07/02/24 04:58 07/02/24 04:58 Labs: Laboratory Results - last 24 hr 07/01/24 07/02/24 15:12 04:58 WBC 9.1 RBC 2.85 L Hgb 8.8 L 8.9 L Hct 26.1 L 26.6 L MCV 93.5 D MCH 31.3 MCHC 33.5 RDW 15.4 H Plt Count 309 Sodium 136 L Potassium 3.1 L D Chloride 100 Carbon Dioxide 25 BUN 13 Creatinine 1.05 H Estimated GFR 54 L BUN/Creatinine Ratio 12.4 Glucose 92 Calcium 9.8 PFSH Medical History Sinus bradycardia CKD stage 3b, GFR 30-44 ml/min Elevated brain natriuretic peptide (BNP) level Chronic right hip pain Left arm pain Acute cystitis with positive culture Chronic cough History of myocardial infarction Anemia Medicare annual wellness visit, subsequent Encounter for wellness examination in adult Cellulitis Eczema Trochanteric bursitis, left hip Diverticulosis Well adult exam Breast cyst Carotid stenosis Breast nodule Pulmonary nodules Chronic headache Hyperlipidemia Hyperparathyroidism Chronic kidney disease Paresthesia of left upper extremity Facet arthropathy, lumbosacral Pruritic rash Chronic anticoagulation Foraminal stenosis of cervical region Headache Fractures (~1977) Acne Mumps (~1953) Measles (~1953) Chicken pox (~194) Cataracts, bilateral (~2013) Hypertension (~2000) Facial abrasion (~10/07/19) Surgical History History of left-sided carotid endarterectomy History of heart artery stent Anesthesia Status post tonsillectomy and adenoidectomy Status post appendectomy Status post tubal ligation Status post dilation and curettage History of cataract removal with insertion of prosthetic lens (~2013) Family History Father Cancer Grandfather Heart disease Grandmother Stroke Mother Cancer Brother No problems noted. Grandfather No problems noted. Grandmother No problems noted. Social History household members: none Smoking Status: Never smoker alcohol intake: never substance use type: does not use Assessment & Plan Assessment and plan (1) Anemia: Qualifiers: Anemia type: B12 deficiency Vitamin B12 deficiency anemia type: unspecified B12 deficiency Qualified Code(s): D51.9 - Vitamin B12 deficiency anemia, unspecified Status: Acute Plan colonoscopy for anemia Time-Based Coding :: [TOTAL MINUTES] spent with patient and on the chart (including review of chart, obtaining history, exam, reviewing outside data, placing orders, documenting exam and treatment plan, and counseling patient) on [DATE]. [employer] Maintenance Executive Document charge(s): No
--- NOTE | 2024-07-02 13:37 | PM.OP.COLON ---
Operative Date/Time/Diagnoses Date of procedure: 07/02/24 Time of procedure: 13:37 Pre-op diagnosis: Anemia Post-op diagnosis: same Procedure & Clinicians Study performed: Colonoscopy Same procedure as scheduled: Yes Surgeon: Сергей Neal Procedure Notes Procedure in detail: Surgeon: Сергей Neal MD Anesthesia: Shadi Henderson D.O. Procedure: The patient was brought to the endoscopy suite, placed in left lateral decubitus position. The patient was connected to monitoring devices. A time-out was performed. Sedation was administered. Once the patient was adequately sedated, a digital rectal exam was performed and was normal. The scope was then inserted and advanced to the cecum where the appendiceal orifice was identified and photographed. The terminal ileum was intubated and no abnormalities were seen. The scope was then slowly withdrawn over greater than 6 minutes. The mucosa was thoroughly inspected. There was extensive sigmoid colon diverticulosis. The scope was retroflexed in the rectum. No other abnormalities were found. The scope was straightened and removed. The patient was awakened and brought to recovery. Scope withdrawal time: 8 minutes Sedation time: 18 minutes EBL: 0 Findings: Sigmoid colon diverticulosis Post-procedure Disposition: PACU
--- NOTE | 2024-07-02 14:11 | OT.IPNOTE ---
Pt just got back from procedure. Pt states to have assist at home.
--- NOTE | 2024-07-02 14:44 | PM.DS.1 ---
History of Present Illness History of Present Illness Date Patient Seen: 07/02/24 Chief complaint: sent by cardiology for abn labs Narrative: Per admitting provider: From night doctor: 79 y/o F with multiple chronic medical problems, including extensive Cardiac history, including AL in Dec 2023, while on an [place] cruise, she was taken off board to a [facility] and then to [place], where she had Cardiac cath done and [address];aced, was started on Brilinta at that time, and 3 months later Xarelto was added per her [employer], as well as continued on ASA 81 mg, also has h/o CEA of bilat Carotid Arteris with Left sided Carotid artery s/p patch and then stented, has h/o PAD and clauidication in her thighs , h/o HTN, HLD, Hypothyroidism and Parathyroid adenoma/ Hyper Parathyroidism, Depression, h/o LUE DVT ( 7 years ago), CKD stage 3-4, chronic pain sec top DJD, worsened by a fall last fall, with R hip fracture, and R knee meniscal tear, advised to continue pain meds, pt taking Tramadol and Tylenol, using a walker but in chronic R LE pain sec to these injuries, apparently not an operable candidate, has no h/o CHF, though had elevated BNPs on prior labs : 850 Jan 2024, Echo a few years ago : LVEF 60-65%, has not been on diuretics in the past, denies LE edema, Orthopnea, or PND. She was having c/o fatigue, ROMERO, decreased energy, over last 3-4 weeks,and light headedness today, her Cardiology office checked CBC today and was noted to be with moderate Anemia, hb 6.1, she was advised to stop taking all blood thinners : including Brilinta, Xarelto and ASA and was referred to ED for evaluation for her Anemia. Denies dysuria or hematuria. Patient states she had noted a few days of diarrhea, no abd pain. She denies tarry stools or BRBPR, though has not been looking at her BMs, to note color. Denies N/V , Hematemesis or Coffee grounds. She has not taken NSAIDs recently. She denies CP, abd pain, or syncope. No cough, f/c, severe headaches, or recent trauma or falls. Labs, imaging, VS in ED reviewed. Pt was started on 1 unit PRBC, repeat Hb was 6.7. Was started on secvond unit of PRBC and referred to Hospitalist service for observation. S: Last hemoglobin was 8.1. She feels much better. No chest pain, or dyspnea. The plan is for endoscopy this afternoon at 3:00 p.m.. She does not look at her bowel movements and does not know if there has been any melena or rectal blood. Discharge Providers Provider Date of admission: 06/30/24 00:14 Discharge Date: 07/02/24 Primary care physician: Zaki Gerber DO Consults: 06/30/24 04:18 Consult to Occupational Therapy Evaluate & Treat Comment: Physician Instructions: Evaluate and treat Consult to Physical Therapy Evaluate & Treat Comment: Physician Instructions: Evaluate and Treat 07/01/24 12:06 Consult to Home Health Routine Comment: Reason For Exam: resume previous PT orders Discharge provider: Ezequiel Ivey DO Summary Hospital Course Discharge Diagnosis: 1. Acute blood loss anemia, present on admission and active. 2. Melena. Present on admission and active. 3. Chronic right hip pain, stable. 4. SUZE on CKD stage 3b, GFR 30-44 ml/min, active and stable. 5. Sinus bradycardia, active. 6. History of left-sided carotid endarterectomy, stable. 7. History of myocardial infarction, stable. Hospital Course: 79 year old female with PMH of CKD, CAD on xarelto admitted with acute blood loss anemia and melena. She was given 2U of PRBC transfusion with improvement in h/h and subsequent stability afterwards. Initial Cr was 1.7 and improved to 1.05 after transfusion. She had an EGD which showed mild antritis, but no significant bleeding. Colonoscopy was performed the following day after prep which showed diverticulosis. She had not had any additional bowel movements after prep and felt well. She wished to discharge home after negative evaluation. Recommend continued holding of home plavix for a few days after discharge and continuing 14 day PPI as the source is not clear at this time. Can resume xarelto in the near future as well if continued uptrending of h/h as an outpatient and no further bleeding. Should bleeding recur, recommend initial evaluation with CT angio for possible IR interventions and consideration of enteroscopy at higher level facility. Time Spent with Patient Time spent: Greater than 30 minutes Exam Vital Signs (past 8 hours): - 07/02/24 07:00 07/02/24 08:00 07/02/24 12:07 Temperature 97.2 F L 99.1 F Pulse Rate 62 59 L Respiratory Rate 20 16 Blood Pressure 178/53 H 176/74 H Pulse Oximetry 99 100 Oxygen Delivery Method Room Air Room Air Oxygen Flow Rate 0 07/02/24 13:39 07/02/24 13:43 07/02/24 13:51 Temperature 98.2 F 98.4 F Pulse Rate 78 81 80 Respiratory Rate 16 25 H 24 Blood Pressure 126/64 137/62 148/71 H Pulse Oximetry 98 97 98 Oxygen Delivery Method Room Air Room Air Room Air Oxygen Flow Rate 07/02/24 14:10 Temperature 98 F Pulse Rate 85 Respiratory Rate 16 Blood Pressure 144/63 H Pulse Oximetry 96 Oxygen Delivery Method Oxygen Flow Rate 0 Oxygen Delivery Method Room Air Oxygen Flow Rate 0 Narrative Exam Narrative: gen: NAD, alert and oriented Abd; S NT ND Ext: no LE edema. Objective Labs 07/02/24 04:58 07/02/24 04:58 Labs: Laboratory Results - last 24 hr 07/01/24 07/02/24 15:12 04:58 WBC 9.1 RBC 2.85 L Hgb 8.8 L 8.9 L Hct 26.1 L 26.6 L MCV 93.5 D MCH 31.3 MCHC 33.5 RDW 15.4 H Plt Count 309 Sodium 136 L Potassium 3.1 L D Chloride 100 Carbon Dioxide 25 BUN 13 Creatinine 1.05 H Estimated GFR 54 L BUN/Creatinine Ratio 12.4 Glucose 92 Calcium 9.8 [facility] Medical History Sinus bradycardia CKD stage 3b, GFR 30-44 ml/min Elevated brain natriuretic peptide (BNP) level Chronic right hip pain Left arm pain Acute cystitis with positive culture Chronic cough History of myocardial infarction Anemia Medicare annual wellness visit, subsequent Encounter for wellness examination in adult Cellulitis Eczema Trochanteric bursitis, left hip Diverticulosis Well adult exam Breast cyst Carotid stenosis Breast nodule Pulmonary nodules Chronic headache Hyperlipidemia Hyperparathyroidism Chronic kidney disease Paresthesia of left upper extremity Facet arthropathy, lumbosacral Pruritic rash Chronic anticoagulation Foraminal stenosis of cervical region Headache Fractures (~1977) Acne Mumps (~1953) Measles (~1953) Chicken pox (~1948) Cataracts, bilateral (~2013) Hypertension (~1999) Facial abrasion (~10/07/19) Surgical History History of left-sided carotid endarterectomy History of heart artery stent Anesthesia Status post tonsillectomy and adenoidectomy Status post appendectomy Status post tubal ligation Status post dilation and curettage History of cataract removal with insertion of prosthetic lens (~2013) Family History Father Cancer Grandfather Heart disease Grandmother Stroke Mother Cancer Brother No problems noted. Grandfather No problems noted. Grandmother No problems noted. Social History household members: none Smoking Status: Never smoker alcohol intake: never substance use type: does not use Discharge Plan Discharge Plan Patient Disposition: Home Provider Discharge Comment: You were admitted to the hospital with anemia, possibly from diverticulosis but no active bleeding was found. Recommend PCP follow up in 1-2 weeks, continue PPI with pantoprazole 20 mg daily for 14 days after discharge. I would restart your home brilinta in a couple of days, and resume xarelto after follow up with primary care / cardiology. Discharge orders & Medications Prescriptions: New pantoprazole 20 mg tablet,delayed release (DR/EC) 20 mg PO DAILY 14 Days Qty: 14 0RF Continued Thera M Plus (ferrous fumarat) 1 EACH tablet 1 tab PO Q DAY Qty: 0 tizanidine 2 mg tablet 2 mg PO 3XD PRN (Reason: for muscle spasm) Qty: 270 0RF Rx Instructions: PLEASE TELL PT NEEDS APPT TO KEEP FILLING THIS MEDICATION levothyroxine 88 mcg tablet 88 mcg PO DAILY Qty: 90 3RF nitrofurantoin monohyd/m-cryst [Macrobid] 100 mg capsule 100 mg PO BID 7 Days Qty: 14 0RF Rx Instructions: must administer with a meal/food citalopram 40 mg tablet 40 mg PO DAILY Qty: 90 3RF (DME) disabled parking permit See Rx Instructions .ROUTE .MEDSUPPLY Qty: 1 0RF Rx Instructions: As directed. patient qualifies for disabled parking as per attached form. mecobalamin (vitamin B12) 10,000 mcg recon soln 1,000 mcg IM QMONTH Qty: 1 2RF Rx Instructions: 1,000 mcg per month. started on 09/24 - end in November. Labs after in December albuterol sulfate 90 mcg/actuation HFA aerosol inhaler 2 puff inhalation Q6H PRN (Reason: shortness of breath or wheezing) Qty: 8.5 1RF carvedilol 3.125 mg tablet 3.125 mg PO BID rosuvastatin 10 mg tablet 10 mg PO ONCE PM nitroglycerin 0.4 mg tablet, sublingual 0.4 mg sublingual PRN PRN (Reason: Chest Pain) amlodipine 5 mg tablet 5 mg PO DAILY Brilinta 90 mg tablet 90 mg PO BID Xarelto 15 mg tablet 15 mg PO DAILY tramadol 50 mg tablet 50 mg PO Q8H PRN (Reason: pain) Qty: 12 0RF ondansetron 4 mg tablet,disintegrating 4 mg PO Q8H PRN (Reason: nausea and vomiting) Qty: 30 0RF ferrous sulfate 325 mg (65 mg iron) tablet 325 mg PO DAILY Follow up/Referrals: Zaki Gerber, [Primary Care Provider] - Diet/Activity/Treatments Diet: Diet as Tolerated and Regular Activity: As tolerated, no restrictions. Visit Report/Discharge Packet Stand Alone Forms: Patient Portal/API, Stroke Signs & Symptoms Discharge Data Primary Care Provider: Zaki Gerber Attending Provider: Lorena Velasco Admjillian Date/Time: 06/30/24 00:14
--- NOTE | 2024-07-02 15:36 | CM.DPC ---
DCP Discharge Home Per MD, pt taken to OR for scope with Surgeon this afternoon and likely medically stable to d/c home this evening. WILFRIDO soto emailed Yumiko GUTIERREZ pt's discharge summary and EMILY Antunez provided her IMM and pt agreeable with d/c home this evening. LUCIANO Kirkland
[2024-07-02] MEDS: POTASSIUM CHLORIDE 20 MEQ TAB 40 MEQ PO (15:55)
== END 2024-07-02 16:10 | disposition home or self-care (01) ==
LOC: ED 06-30 00:13 → AC 06-30 00:14
PROVIDERS: Emergency Medicine; Hospitalist; Surgery; Admitting Provider Hospitalist; Emergency Provider Emergency Medicine; Family Provider Family Medicine; PCP Family Medicine; Referring Provider Emergency Medicine; Visit Provider Hospitalist
PROC: 0DJ08ZZ Inspection of Upper Intestinal Tract, Via Natural or Artificial Opening Endoscopic (ICD-10-PCS; CPT 43239; principal; 2024-06-30 16:30)
PROC: 0DJD8ZZ Inspection of Lower Intestinal Tract, Via Natural or Artificial Opening Endoscopic (ICD-10-PCS; CPT 45378; principal; 2024-07-02 16:15)
DX: D62 Acute posthemorrhagic anemia (principal); R79.89 Other specified abnormal findings of blood chemistry; N17.9 Acute kidney failure, unspecified; I12.9 Hypertensive chronic kidney disease with stage 1 through stage 4 chronic kidney disease, or unspecified chronic kidney disease; N18.32 Chronic kidney disease, stage 3b; I73.9 Peripheral vascular disease, unspecified; E03.9 Hypothyroidism, unspecified; E78.5 Hyperlipidemia, unspecified; R00.1 Bradycardia, unspecified; E21.3 Hyperparathyroidism, unspecified; G89.29 Other chronic pain; M25.551 Pain in right hip; Z86.718 Personal history of other venous thrombosis and embolism; Z79.01 Long term (current) use of anticoagulants; Z95.818 Presence of other cardiac implants and grafts; I25.2 Old myocardial infarction; Z79.82 Long term (current) use of aspirin; K57.30 Diverticulosis of large intestine without perforation or abscess without bleeding; K29.50 Unspecified chronic gastritis without bleeding; N18.31 Chronic kidney disease, stage 3a; N39.0 Urinary tract infection, site not specified
CPT/HCPCS: 43239; 45378; 36415; 36430; 71045; 80048; 80053; 81001; 82310; 82607; 82746; 83540; 83550; 83605; 83880; 83970; 84443; 84484; 85014; 85018; 85025; 85027; 85610; 86850; 86900; 86901; 87077; 87086; 87186; 93005; 93010; 93306; 96374; 96375; 97116; 97162; 97165; 99285; G0378; P9016; J2405; J2470; J2704

== ENCOUNTER 2024-07-21 10:11 | Emergency (ER) | payer MEDICARE, OTHER, SELFPAY ==
[2024-06-30 00:53] VITALS: BMI 22.8
[2024-07-21 10:18] VITALS: BP 179/89; PULSE 103; RESP 15; TEMP 36.6; O2SAT 97
--- NOTE | 2024-07-21 10:24 | DI.RAD.S_ITS ---
PROCEDURE: XR CHEST 1V INDICATIONS: chest pain TECHNIQUE: One view of the chest was acquired. COMPARISON: [facility], CR, XR CHEST 1V, 06/29/2024, 17:03. FINDINGS: Surgical changes and devices: None. Lungs and pleura: Lungs are clear. No pleural effusions or pneumothorax. Mediastinum: Mediastinal contours appear normal. Heart size is normal. Bones and chest wall: No suspicious bony lesions. Overlying soft tissues appear unremarkable. IMPRESSION: No acute cardiopulmonary pathology. Dictated by: Reno Fuller M.D. on 07/21/2024 at 11:00 Approved by: Reno Fuller M.D. on 07/21/2024 at 11:00
--- NOTE | 2024-07-21 10:26 | DI.CT.S_ITS ---
PROCEDURE: CT HEAD/BRAIN WO CON INDICATIONS: vertigo,nausea TECHNIQUE: Noncontrast 4.5 mm thick angled axial sections acquired from the foramen magnum to the vertex, with coronal and sagittal reformats. For radiation dose reduction, the following was used: automated exposure control, adjustment of mA and/or kV according to patient size. COMPARISON: [facility], CT, CT HEAD/BRAIN WO CON, 04/15/2024, 18:13. FINDINGS: Image quality: Diagnostic. CSF spaces: Basal cisterns are patent. No extra-axial fluid collections. The ventricles are symmetric in size and shape. Brain: No intracranial bleeds or masses. There is cerebral volume loss for age, with resultant ventricular and sulcal prominence. There are periventricular and deep white matter chronic small vessel ischemic changes. There is intracranial internal carotid artery atherosclerosis. Skull and face: Calvarium and visualized facial bones appear intact, without suspicious lesions. Sinuses: Visualized sinuses and mastoids are clear. IMPRESSION: No acute intracranial pathology. Dictated by: Reno Fuller M.D. on 07/21/2024 at 11:00 Approved by: Reno Fuller M.D. on 07/21/2024 at 11:01
--- NOTE | 2024-07-21 10:27 | EKG_ITS ---
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
[2024-07-21] MEDS: ONDANSETRON 4 MG/2 ML INJ IV (10:38)
[2024-07-21 10:39] LABS: Add Manual Diff / Slide Review NO; Basophils Absolute Auto 100 /uL (0-100); Basophils Percent Auto 0.8 % (0-2); Eosinophils Absolute Auto 0 /uL (0-450); Eosinophils Percent Auto 0.3 % (2-4); Hematocrit 33.2 % (36-46); Hemoglobin 10.8 g/dL (12.0-16.0); Lymphocytes Absolute Auto 1000 /uL (1100-4500); Lymphocytes Percent Auto 8.1 % (25-40); Mean Corpuscular HGB Conc 32.6 % (30-36); Mean Corpuscular Hemoglobin 30.2 PG (26-34); Mean Corpuscular Volume 92.7 fL (80-100); Monocytes Absolute Auto 600 /uL (0-900); Monocytes Percent Auto 4.6 % (3-14); Neutrophils Absolute Auto 10800 /uL (1500-7000); Neutrophils Percent Auto 86.2 % (50-75); Platelet Count 464 X10^3/uL (150-400); Red Blood Cell Count 3.59 X10^6/uL (4.0-5.2); Red Cell Distribution Width 15.5 % (11.6-14.8); White Blood Cell Count 12.6 X10^3/uL (4.5-11.0)
[2024-07-21 10:45] LABS: INR 1.1 (0.9-1.3)
[2024-07-21 10:48] LABS: PTT Partial Thromboplastin Tim 33 SECONDS (25.1-36.5)
[2024-07-21 10:50] LABS: Alanine Aminotransferase 17 IU/L (<35); Albumin 4.5 g/dL (3.5-5.0); Albumin Globulin Ratio 1.1 (1.0-2.8); Alkaline Phosphatase 100 U/L (38-126); Aspartate Aminotransferase 22 IU/L (14-36); BUN Creatinine Ratio 25.2 (6-22); Bilirubin Total 0.6 mg/dL (0.2-1.3); Blood Urea Nitrogen 29 mg/dL (7-17); Calcium 11.4 mg/dL (8.4-10.2); Carbon Dioxide 21 mmol/L (22-32); Chloride 106 mmol/L (98-107); Creatine Kinase 21 U/L (30-135); Estimated Glomerular Filt Rate 48 mL/min (>60); Glucose 154 mg/dL (80-110); HEMOLYSIS < 15 (0-50); Lipase 164 U/L (23-300); Magnesium 1.9 mg/dL (1.6-2.3); Potassium 4.4 mmol/L (3.4-5.1); Sodium 139 mmol/L (137-145); Total Protein 8.5 g/dL (6.3-8.2)
[2024-07-21 11:01] LABS: NT-proBNP (BNP-Adult 18+) 650 pg/mL (<450); Troponin I < 0.012 ng/mL (0.01-0.034)
[2024-07-21 14:38] VITALS: BP 181/75; PULSE 60; RESP 20; TEMP 36.6; O2SAT 99
--- NOTE | 2024-07-21 15:24 | ED.DIZZY ---
HPI - Dizziness General Chief Complaint: Dizziness Stated Complaint: Vertigo Time Seen by Provider: 07/21/24 15:02 Source: patient, RN notes reviewed and old records reviewed Mode of arrival: Wheelchair Limitations: no limitations History of Present Illness HPI Narrative: 79-year-old female prior cardiac history including KS in December 2023, patient has 2 cardiac stents, history of bilateral CEA, status post patch then stented, history of PID and claudication and thighs, hypertension, dyslipidemia, hypothyroidism, hyperparathyroidism, depression, CKD stage 3 presents with complaint of dizziness. Patient is currently on Brilinta and Xarelto. Patient presents with complaint of vertigo or dizziness. Symptoms has been since yesterday Saturday morning did have her ears cleaned on states that she had her right ear with a large plug that was removed.. Patient states symptoms started yesterday she woke up from sleep with the room spinning had nausea or vomiting symptoms sort of improved throughout the day she was able to eat. This morning she woke up again with spinning sensation nausea vomiting was not able to settle things down so presented. Denies fevers. Denies any new headaches, no chest pain or shortness of breath. States symptoms have improved at this time she was able to ambulate to the snack bar here in the hospital. She was she has not had any more nausea or vomiting since she had ondansetron. She denies any new numbness tingling or weakness. She states she has not had vertigo in the past but has had meclizine before. She was feeling much improved and would like to return home. Related Data Home Medications Medication Instructions Recorded Confirmed ferrous sulfate 325 mg (65 mg 325 mg PO DAILY 03/19/18 07/06/24 iron) tablet carvedilol 3.125 mg tablet 3.125 mg PO BID 12/27/23 07/06/24 rosuvastatin 10 mg tablet 10 mg PO ONCE PM 12/27/23 07/06/24 nitroglycerin 0.4 mg sublingual 0.4 mg sublingual PRN PRN Chest 05/15/24 07/06/24 tablet Pain amlodipine 5 mg tablet 5 mg PO DAILY 06/30/24 07/06/24 rivaroxaban 15 mg tablet (Xarelto) 15 mg PO DAILY 06/30/24 07/06/24 ticagrelor 90 mg tablet (Brilinta) 90 mg PO BID 06/30/24 07/06/24 ascorbic acid (vitamin C) 1,000 mg 1 g PO DAILY 07/03/24 07/06/24 tablet aspirin 81 mg tablet,delayed 81 mg PO DAILY 07/03/24 07/06/24 release (Adult Low Dose Aspirin) glucosamine sulfate 500 mg tablet 500 mg PO DAILY 07/03/24 07/06/24 (Glucosamine) Previous Rx's Medication Instructions Recorded disabled parking permit #1 ea 10/06/19 tizanidine 2 mg tablet 2 mg PO 3XD PRN for muscle spasm 10/07/23 #270 tabs levothyroxine 88 mcg tablet 88 mcg PO DAILY #90 tabs 01/15/24 citalopram 40 mg tablet 40 mg PO DAILY #90 tabs 02/14/24 ondansetron 4 mg disintegrating 4 mg PO Q8H PRN nausea and 04/15/24 tablet vomiting #30 tabs albuterol sulfate 90 mcg/actuation 2 puff inhalation Q6H PRN 07/15/24 aerosol inhaler shortness of breath or wheezing #8.5 grams meclizine 25 mg chewable tablet 25 mg PO QID PRN dizziness #20 tabs 07/21/24 ondansetron 4 mg disintegrating 4 mg PO Q6H PRN nausea and 07/21/24 tablet vomiting #10 tabs Allergies Allergy/AdvReac Type Severity Reaction Status Date / Time tramadol Allergy Severe Nausea Verified 07/21/24 10:18 hydrocodone [HYDROCODONE] Allergy Intermediate NAUSEA / Verified 07/21/24 10:18 VOMITING Sulfa (Sulfonamide Allergy Mild Hives Verified 07/21/24 10:18 Antibiotics) [SULFA (SULFONAMIDE ANTIBIOTICS)] fentanyl AdvReac Severe Vomiting Verified 07/21/24 10:18 morphine [MORPHINE] AdvReac Mild Vomiting Verified 07/21/24 10:18 OPITATES Allergy Intermediate Gastrointestinal Uncoded 07/06/24 15:29 Upset Review of Systems Review of Systems ROS Unobtainable: All systems reviewed & are unremarkable except as noted in HPI and below Patient History Medical History History of upper gastrointestinal bleeding Sinus bradycardia CKD stage 3b, GFR 30-44 ml/min Elevated brain natriuretic peptide (BNP) level Chronic right hip pain Left arm pain Acute cystitis with positive culture Chronic cough History of myocardial infarction Anemia Medicare annual wellness visit, subsequent Encounter for wellness examination in adult Cellulitis Eczema Trochanteric bursitis, left hip Diverticulosis Well adult exam Breast cyst Carotid stenosis Breast nodule Pulmonary nodules Chronic headache Hyperlipidemia Hyperparathyroidism Chronic kidney disease Paresthesia of left upper extremity Facet arthropathy, lumbosacral Pruritic rash Chronic anticoagulation Foraminal stenosis of cervical region Headache Fractures (~1977) Acne Mumps (~1953) Measles (~1953) Chicken pox (~1948) Cataracts, bilateral (~2013) Hypertension (~1999) Facial abrasion (~10/07/19) Surgical History History of left-sided carotid endarterectomy History of heart artery stent Anesthesia Status post tonsillectomy and adenoidectomy Status post appendectomy Status post tubal ligation Status post dilation and curettage History of cataract removal with insertion of prosthetic lens (~2013) Family History Father Cancer Grandfather Heart disease Grandmother Stroke Mother Cancer Brother No problems noted. Grandfather No problems noted. Grandmother No problems noted. Social History household members: none Smoking Status: Unknown if ever smoked alcohol intake: never substance use type: does not use Smoking Status: Unknown if ever smoked alcohol intake frequency: a few times a month Exam Narrative Exam Narrative: GEN: well nourished, well appearing female, alert and oriented x mild, patient appears to be in my distress. HEENT: Patient has some greenish ecchymosis of the left brow with a small scab at the left upper cheek, pupils are equal round reactive to light, extraocular movements are intact, no nystagmus, nares are clear, TMs have a small amount of clear fluid, retracted no erythema, canals are clear of cerumen, there is no conjunctival pallor. Throat is clear without any exudates, erythema, tonsillar enlargement or uvular deviation, no facial HEART: Regular rate and rhythm without murmur, clicks, rubs. LUNGS:Lungs clear to auscultation, no wheezes, rales, crackles, chest moves symmetrically ABD:bowel sounds normal, soft, non-tender, no guarding, rebound, rigidity, no masses noted, no hepatosplenomegaly :No CVA tenderness MSCL: Non-tender, no muscle atrophy, muscles strength 5/5 upper and lower extremities, full range of motion NEURO:CN 2-12 intact, sensation normal, Finger nose finger test normal, heel grayson test normal. No dysarthria or aphasia Initial Vital Signs Initial Vital Signs: Vital Signs Temperature 97.8 F 07/21/24 10:18 Pulse Rate 103 H 07/21/24 10:18 Respiratory Rate 15 07/21/24 10:18 Blood Pressure 179/89 H 07/21/24 10:18 Pulse Oximetry 97 07/21/24 10:18 Oxygen Delivery Method Room Air 07/21/24 10:18 Course Orders Ordered: ED Orders 07/21/24 10:24 XR chest 1V Stat EKG-12 Lead Stat 07/21/24 10:26 CT head/brain wo con Stat 07/21/24 10:30 Complete Blood Count AUTO DIFF Stat Comprehensive Metabolic Panel Stat Lipase Stat Magnesium Stat NT-proBNP (BNP-Adult 18+) Stat PTT Partial Thromboplastin Carl Stat Prothrombin Time INR Stat Troponin & CK Cardiac Panel Stat Discontinued Medications Sodium Chloride (Normal Saline 0.9%) 1,000 mls @ 1,000 mls/hr IV BOLUS ONE Stop: 07/21/24 16:27 Last Infusion: 07/21/24 16:45 Dose: Infused Documented By: Admin: 07/21/24 15:28 Dose: 1,000 mls/hr Documented By: VALENTINO Meclizine HCl (Meclizine Hcl 12.5 Mg Tablet) 25 mg PO NOW ONE Stop: 07/21/24 16:24 Last Admin: 07/21/24 16:30 Dose: 25 mg Documented By: VALENTINO Ondansetron HCl (Ondansetron 4 Mg/2 Ml Inj) 4 mg IV NOW PRN PRN Reason: Nausea And Vomiting Last Admin: 07/21/24 10:38 Dose: 4 mg Documented By: NASRIN Vital Signs Vital signs: Vital Signs - 8 hr 07/21/24 14:38 07/21/24 16:46 07/21/24 16:48 Temperature 98 F Pulse Rate 60 70 Pulse Rate [Orthostatic Lying] 58 L Pulse Rate [Orthostatic Sitting] 60 Pulse Rate [Orthostatic Standing] 70 Respiratory Rate 20 20 Blood Pressure 181/75 H Blood Pressure [Orthostatic Lying] 161/109 H Blood Pressure [Orthostatic Sitting] 170/72 H Blood Pressure [Orthostatic Standing] 183/70 H Pulse Oximetry 99 99 Oxygen Delivery Method Room Air MDM - Dizziness Lab Data 07/21/24 10:30 07/21/24 10:30 Labs: Lab Results 07/21/24 Range/Units 10:30 WBC 12.6 H (4.5-11.0) X10^3/uL RBC 3.59 L (4.0-5.2) X10^6/uL Hgb 10.8 L (12.0-16.0) g/dL Hct 33.2 L (36-46) % MCV 92.7 (80-100) fL MCH 30.2 (26-34) PG MCHC 32.6 (30-36) % RDW 15.5 H (11.6-14.8) % Plt Count 464 H (150-400) X10^3/uL Neut % (Auto) 86.2 H (50-75) % Lymph % (Auto) 8.1 L (25-40) % [place] % (Auto) 4.6 (3-14) % Eos % (Auto) 0.3 L (2-4) % Baso % (Auto) 0.8 (0-2) % Neut # (Auto) 81474 H (5645-2409) /uL Lymph # (Auto) 1000 L (1395-5999) /uL [place] # (Auto) 600 (0-900) /uL Eos # (Auto) 0 (0-450) /uL Baso # (Auto) 100 (0-100) /uL PT 13.0 H (9.4-12.5) SECONDS INR 1.1 (0.9-1.3) APTT 33 (25.1-36.5) SECONDS Sodium 139 (137-145) mmol/L Potassium 4.4 (3.4-5.1) mmol/L Chloride 106 (98-107) mmol/L Carbon Dioxide 21 L (22-32) mmol/L BUN 29 H (7-17) mg/dL Creatinine 1.15 H (0.52-1.04) mg/dL Estimated GFR 48 L (>60) mL/min BUN/Creatinine Ratio 25.2 H (6-22) Glucose 154 H (80-110) mg/dL Calcium 11.4 H (8.4-10.2) mg/dL Magnesium 1.9 (1.6-2.3) mg/dL Total Bilirubin 0.6 (0.2-1.3) mg/dL AST 22 (14-36) IU/L ALT 17 (<35) IU/L Alkaline Phosphatase 100 (38-126) U/L Total Creatine Kinase 21 L (30-135) U/L Troponin I < 0.012 (0.01-0.034) ng/mL NT-Pro-B Natriuret Pep 650 H (<450) pg/mL Total Protein 8.5 H (6.3-8.2) g/dL Albumin 4.5 (3.5-5.0) g/dL Globulin 4.0 (1.7-4.1) g/dL Albumin/Globulin Ratio 1.1 (1.0-2.8) Lipase 164 (23-300) U/L MDM Narrative Medical decision making narrative: Labs show white count of 12.6 hemoglobin of 10.8 from improved from June when patient was in the 6-8 range. Platelets of 464. INR is 1.1, creatinine is 1.15 was 1.05 last month, BUN 29 CO2 is 21 with a otherwise appropriate electrolytes calcium is 11 point glucose is 154, troponins less than 0.012 with a BNP of 650. Total CK is 21. EKG sinus rhythm with sinus arrhythmia, nonspecific change rate of 66, MA 174 QRS is 78 QTC of 438. Head CT shows no acute change. Chest x-ray no acute change Patient received Zofran, fluids patient was feeling much improved. She was agreeable to have a dose of oral meclizine. Patient does have hypercalcemia but has had this intermittently in the past. Patient does not have any acute neurologic changes symptoms were upon awakening yesterday had symptoms again today her exam is overall reassuring. She has a little bit of an abrasion on her right forehead but states that from 07/11 days ago when she tripped while wiping step up on the floor and fell forward. Patient would like to return home. We discussed follow up with the ENT if symptoms are persisting return precautions. Discharge Plan Departure Patient Disposition: Home Clinical Impression: Vertigo Instructions: DI for Vertigo Activity Restrictions/Additional Instructions: Please follow up for recheck. If your symptoms are mild but persistent please follow up with ENT, contact is included below. You can take Zofran 1 tablet every 6 hours sublingually as needed for nausea. I would recommend taking this 15-20 minutes before meclizine if needed. Can take meclizine 1-2 tablet every 6-8 hours as needed for vertigo symptoms. Prescription sent to [facility]. Please return if you have rapidly worsening symptoms, severe headaches, fevers, inability to ambulate safely, new numbness, tingling or weakness, facial droop or difficulty with speech, persistent vomiting or other new or concerning changes. Prescriptions: New meclizine 25 mg tablet,chewable 25 mg PO QID PRN (Reason: dizziness) Qty: 20 0RF ondansetron 4 mg tablet,disintegrating 4 mg PO Q6H PRN (Reason: nausea and vomiting) Qty: 10 0RF No Action tizanidine 2 mg tablet 2 mg PO 3XD PRN (Reason: for muscle spasm) Qty: 270 0RF Rx Instructions: PLEASE TELL PT NEEDS APPT TO KEEP FILLING THIS MEDICATION levothyroxine 88 mcg tablet 88 mcg PO DAILY Qty: 90 3RF albuterol sulfate 90 mcg/actuation HFA aerosol inhaler 2 puff inhalation Q6H PRN (Reason: shortness of breath or wheezing) Qty: 8.5 3RF citalopram 40 mg tablet 40 mg PO DAILY Qty: 90 3RF (DME) disabled parking permit See Rx Instructions .ROUTE .MEDSUPPLY Qty: 1 0RF Rx Instructions: As directed. patient qualifies for disabled parking as per attached form. carvedilol 3.125 mg tablet 3.125 mg PO BID rosuvastatin 10 mg tablet 10 mg PO ONCE PM nitroglycerin 0.4 mg tablet, sublingual 0.4 mg sublingual PRN PRN (Reason: Chest Pain) ascorbic acid (vitamin C) 1,000 mg tablet 1 g PO DAILY glucosamine sulfate [Glucosamine] 500 mg tablet 500 mg PO DAILY Rx Instructions: administer with a meal aspirin [Adult Low Dose Aspirin] 81 mg tablet,delayed release (DR/EC) 81 mg PO DAILY amlodipine 5 mg tablet 5 mg PO DAILY Brilinta 90 mg tablet 90 mg PO BID Xarelto 15 mg tablet 15 mg PO DAILY ondansetron 4 mg tablet,disintegrating 4 mg PO Q8H PRN (Reason: nausea and vomiting) Qty: 30 0RF ferrous sulfate 325 mg (65 mg iron) tablet 325 mg PO DAILY Referrals: Giovani Zhang MD [Physician] - Zaki Gerber DO [Primary Care Provider] - Stand Alone Forms: Patient Portal/API/Survey
[2024-07-21] MEDS: SODIUM CHLORIDE 0.9% 1,000 ML 1000 ML IV (15:28)
[2024-07-21] MEDS: MECLIZINE HCL 12.5 MG TABLET 25 MG PO (16:30)
[2024-07-21 16:46] VITALS: BP 161/109; BP 170/72; BP 183/70; PULSE 58; PULSE 60; PULSE 70
[2024-07-21 16:48] VITALS: PULSE 70; RESP 20; O2SAT 99
== END 2024-07-21 17:01 | disposition home or self-care (01) ==
PROVIDERS: Emergency Provider Emergency Medicine; Family Provider Family Medicine; PCP Family Medicine
DX: R42 Dizziness and giddiness (principal); I25.2 Old myocardial infarction; Z95.5 Presence of coronary angioplasty implant and graft
CPT/HCPCS: 36415; 70450; 71045; 80053; 82550; 83690; 83735; 83880; 84484; 85025; 85610; 85730; 93005; 93010; 96361; 96374; 99284; J2405

== ENCOUNTER → 2024-08-03 11:14 | Outpatient (CLI) | payer MEDICARE, OTHER, SELFPAY ==
[2024-06-30 00:53] VITALS: BMI 22.8
[2024-08-03 11:44] LABS: Add Manual Diff / Slide Review NO; Basophils Absolute Auto 100 /uL (0-100); Basophils Percent Auto 0.6 % (0-2); Eosinophils Absolute Auto 200 /uL (0-450); Eosinophils Percent Auto 1.5 % (2-4); Hematocrit 32.7 % (36-46); Hemoglobin 10.5 g/dL (12.0-16.0); Lymphocytes Absolute Auto 1100 /uL (1100-4500); Lymphocytes Percent Auto 10.7 % (25-40); Mean Corpuscular HGB Conc 32.2 % (30-36); Mean Corpuscular Hemoglobin 29.9 PG (26-34); Mean Corpuscular Volume 92.6 fL (80-100); Monocytes Absolute Auto 600 /uL (0-900); Monocytes Percent Auto 5.7 % (3-14); Neutrophils Absolute Auto 8500 /uL (1500-7000); Neutrophils Percent Auto 81.5 % (50-75); Platelet Count 390 X10^3/uL (150-400); Red Blood Cell Count 3.53 X10^6/uL (4.0-5.2); Red Cell Distribution Width 14.7 % (11.6-14.8); White Blood Cell Count 10.4 X10^3/uL (4.5-11.0)
[2024-08-03 11:53] LABS: Reticulocyte Count, Percent 1.3 % (1.1-2.6)
[2024-08-03 12:10] LABS: Alanine Aminotransferase 14 IU/L (<35); Albumin 4.2 g/dL (3.5-5.0); Albumin Globulin Ratio 1.2 (1.0-2.8); Alkaline Phosphatase 75 U/L (38-126); Aspartate Aminotransferase 24 IU/L (14-36); BUN Creatinine Ratio 20.6 (6-22); Bilirubin Total 0.5 mg/dL (0.2-1.3); Blood Urea Nitrogen 27 mg/dL (7-17); Calcium 10.2 mg/dL (8.4-10.2); Carbon Dioxide 25 mmol/L (22-32); Chloride 103 mmol/L (98-107); Estimated Glomerular Filt Rate 41 mL/min (>60); Globulin 3.6 g/dL (1.7-4.1); Glucose 101 mg/dL (70-99); HEMOLYSIS 32 (0-50); Potassium 4.7 mmol/L (3.4-5.1); Sodium 140 mmol/L (137-145); Total Protein 7.8 g/dL (6.3-8.2)
[2024-08-03 12:39] LABS: Ferritin 382 ng/mL (11-264)
[2024-08-03 14:26] LABS: Total Iron Binding Capacity 238 ug/dL (265-497); Transferrin 189 mg/dL (206-381)
[2024-08-03 14:32] LABS: Iron 55 ug/dL (37-170); Percent Iron Saturation 23 % (15-50)
[2024-08-03 14:33] LABS: HEMOLYSIS 95 (0-50)
[2024-08-03 15:22] LABS: Vitamin B12 966 pg/mL (239-931)
== END ==
PROVIDERS: Family Provider Family Medicine; PCP Family Medicine; Referring Provider Family Medicine; Visit Provider Family Medicine
DX: E03.9 Hypothyroidism, unspecified (principal); D64.9 Anemia, unspecified; I10 Essential (primary) hypertension
CPT/HCPCS: 36415; 80053; 82607; 82728; 83540; 83550; 85025; 85045

== ENCOUNTER → 2024-08-25 15:59 | Outpatient (CLI) | payer MEDICARE, OTHER, SELFPAY ==
[2024-06-30 00:53] VITALS: BMI 22.8
[2024-08-25 17:59] LABS: Albumin 4.1 g/dL (3.5-5.0); BUN Creatinine Ratio 26.3 (6-22); Blood Urea Nitrogen 36 mg/dL (7-17); Calcium 10.5 mg/dL (8.4-10.2); Carbon Dioxide 26 mmol/L (22-32); Chloride 103 mmol/L (98-107); Estimated Glomerular Filt Rate 39 mL/min (>60); Glucose 103 mg/dL (70-99); HEMOLYSIS < 15 (0-50); Phosphorous 3.7 mg/dL (2.8-4.1); Potassium 5.2 mmol/L (3.4-5.1); Sodium 138 mmol/L (137-145)
[2024-08-25 18:00] LABS: Creatinine Urine Random 73.81 mg/dL
[2024-08-25 18:15] LABS: Vitamin D 25 Hydroxy (D3) 62.7 ng/mL (30.0-100.0)
[2024-08-25 18:19] LABS: Microalbumin Urine Random 28.4 mg/dL (0-1.6)
== END ==
PROVIDERS: Family Provider Family Medicine; PCP Family Medicine; Referring Provider Internal Medicine Nephrology; Visit Provider Internal Medicine Nephrology
DX: I12.9 Hypertensive chronic kidney disease with stage 1 through stage 4 chronic kidney disease, or unspecified chronic kidney disease (principal); N18.32 Chronic kidney disease, stage 3b; Z86.39 Personal history of other endocrine, nutritional and metabolic disease; D63.1 Anemia in chronic kidney disease
CPT/HCPCS: 36415; 80069; 82043; 82306; 82570

== ENCOUNTER → 2024-11-11 10:27 | Outpatient (CLI) | payer MEDICARE, OTHER, SELFPAY ==
[2024-06-30 00:53] VITALS: BMI 22.8
[2024-11-11 11:53] LABS: Add Manual Diff / Slide Review NO; Hematocrit 32.4 % (36-46); Hemoglobin 10.8 g/dL (12.0-16.0); Lymphocytes Absolute Auto 1200 /uL (1100-4500); Mean Corpuscular HGB Conc 33.3 % (30-36); Mean Corpuscular Hemoglobin 29.7 PG (26-34); Mean Corpuscular Volume 89.2 fL (80-100); Platelet Count 278 X10^3/uL (150-400)
[2024-11-11 12:23] LABS: Blood Urea Nitrogen 33 mg/dL (7-17); Calcium 10.8 mg/dL (8.4-10.2); Carbon Dioxide 23 mmol/L (22-32); Chloride 104 mmol/L (98-107); Estimated Glomerular Filt Rate 37 mL/min (>60); Glucose 96 mg/dL (70-99); HEMOLYSIS < 15 (0-50); Iron 56 ug/dL (37-170); Potassium 5.3 mmol/L (3.4-5.1); Sodium 136 mmol/L (137-145)
[2024-11-11 12:58] LABS: Ferritin 334 ng/mL (11-264)
== END ==
PROVIDERS: Family Provider Family Medicine; PCP Family Medicine; Referring Provider Internal Medicine Cardiovascular Disease; Visit Provider Internal Medicine Cardiovascular Disease
DX: I25.10 Atherosclerotic heart disease of native coronary artery without angina pectoris (principal); D63.8 Anemia in other chronic diseases classified elsewhere
CPT/HCPCS: 36415; 80048; 82728; 83540; 85025

== ENCOUNTER → 2025-01-28 14:07 | Outpatient (CLI) | payer MEDICARE, OTHER, SELFPAY ==
[2024-11-24 14:45] VITALS: BMI 23.3
[2025-01-28 15:15] LABS: Add Manual Diff / Slide Review NO; Hematocrit 31.2 % (36-46); Hemoglobin 10.2 g/dL (12.0-16.0); Lymphocytes Absolute Auto 1600 /uL (1100-4500); Mean Corpuscular HGB Conc 32.8 % (30-36); Mean Corpuscular Hemoglobin 29.0 PG (26-34); Mean Corpuscular Volume 88.4 fL (80-100); Platelet Count 344 X10^3/uL (150-400)
[2025-01-28 15:25] LABS: HEMOLYSIS < 15 (0-50); Iron 35 ug/dL (37-170)
[2025-01-28 15:30] LABS: Alanine Aminotransferase 10 IU/L (<35); Albumin 3.9 g/dL (3.5-5.0); Albumin Globulin Ratio 1.1 (1.0-2.8); Alkaline Phosphatase 136 U/L (38-126); Blood Urea Nitrogen 26 mg/dL (7-17); Calcium 10.3 mg/dL (8.4-10.2); Carbon Dioxide 26 mmol/L (22-32); Chloride 103 mmol/L (98-107); Estimated Glomerular Filt Rate 43 mL/min (>60); Globulin 3.4 g/dL (1.7-4.1); Glucose 115 mg/dL (70-99); HEMOLYSIS < 15 (0-50); Potassium 4.2 mmol/L (3.4-5.1); Sodium 138 mmol/L (137-145); Total Protein 7.3 g/dL (6.3-8.2)
[2025-01-28 15:41] LABS: Percent Iron Saturation 16 % (15-50); Total Iron Binding Capacity 224 ug/dL (265-497); Transferrin 187 mg/dL (206-381)
[2025-01-28 15:48] LABS: Free T4, Direct Thyroxine 1.59 ng/dL (0.78-2.19)
[2025-01-28 16:03] LABS: Thyroid Stimulating Hormone 0.709 uIU/mL (0.47-4.68)
[2025-01-28 16:08] LABS: Ferritin 274 ng/mL (11-264)
== END ==
PROVIDERS: Family Provider Family Medicine; PCP Family Medicine; Referring Provider Family Medicine; Visit Provider Family Medicine
DX: N18.32 Chronic kidney disease, stage 3b (principal); D64.9 Anemia, unspecified; R79.89 Other specified abnormal findings of blood chemistry; E21.3 Hyperparathyroidism, unspecified; Z87.19 Personal history of other diseases of the digestive system; I10 Essential (primary) hypertension; E03.9 Hypothyroidism, unspecified
CPT/HCPCS: 36415; 80053; 82728; 83540; 83550; 84439; 84443; 85025

== ENCOUNTER → 2025-02-22 10:22 | Outpatient (CLI) | payer MEDICARE, OTHER, SELFPAY ==
[2024-11-24 14:45] VITALS: BMI 23.3
[2025-02-22 11:47] LABS: Hematocrit 32.0 % (36-46); Hemoglobin 10.2 g/dL (12.0-16.0); Mean Corpuscular HGB Conc 31.8 % (30-36); Mean Corpuscular Hemoglobin 27.9 PG (26-34); Mean Corpuscular Volume 87.8 fL (80-100); Platelet Count 341 X10^3/uL (150-400)
[2025-02-22 12:17] LABS: HEMOLYSIS < 15 (0-50); Iron 52 ug/dL (37-170)
[2025-02-22 12:21] LABS: Albumin 4.1 g/dL (3.5-5.0); Blood Urea Nitrogen 28 mg/dL (7-17); Calcium 10.7 mg/dL (8.4-10.2); Carbon Dioxide 26 mmol/L (22-32); Chloride 107 mmol/L (98-107); Estimated Glomerular Filt Rate 34 mL/min (>60); Glucose 105 mg/dL (70-99); HEMOLYSIS < 15 (0-50); Phosphorous 4.0 mg/dL (2.8-4.1); Potassium 5.2 mmol/L (3.4-5.1); Sodium 144 mmol/L (137-145)
[2025-02-22 12:22] LABS: Appearance Urine UA CLOUDY; Bilirubin Urine UA NEGATIVE (NEGATIVE); Color Urine UA YELLOW; Glucose Urine UA NEGATIVE (Negative); Ketones Urine UA NEGATIVE (NEGATIVE); Leukocyte Esterase Urine UA 2+ (NEGATIVE); Nitrite Urine UA NEGATIVE (Negative); Occult Blood Urine UA 1+ (Negative); Protein Urine UA 2+ (Negative); Specific Gravity Urine UA 1.025 (1.000-1.035); Urobilinogen Urine UA 0.2 E.U./dL (0.2)
[2025-02-22 12:24] LABS: pH Urine UA 5.0 (4.5-8.0)
[2025-02-22 12:26] LABS: Culture Indicated Urine Specimen Cultured
[2025-02-22 12:28] LABS: Percent Iron Saturation 22 % (15-50); Total Iron Binding Capacity 232 ug/dL (265-497); Transferrin 201 mg/dL (206-381)
[2025-02-22 12:34] LABS: Vitamin D 25 Hydroxy (D3) 35.8 ng/mL (30.0-100.0)
[2025-02-22 16:20] LABS: Ferritin 254 ng/mL (11-264)
[2025-02-23 14:18] LABS: Protein (Total) Urine Random 78 mg/dL (0-12); Protein Creatinine Ratio Urine 0.47 GRAM/24H
[2025-02-23 15:04] LABS: Microalbumi Creatinin Ratio Ur 266.0 ug/mg CR (<30)
== END ==
PROVIDERS: Family Provider Family Medicine; PCP Family Medicine; Referring Provider Internal Medicine Nephrology; Visit Provider Internal Medicine Nephrology
DX: N18.30 Chronic kidney disease, stage 3 unspecified (principal); I10 Essential (primary) hypertension; D63.1 Anemia in chronic kidney disease; N18.32 Chronic kidney disease, stage 3b; Z86.39 Personal history of other endocrine, nutritional and metabolic disease
CPT/HCPCS: 36415; 80069; 81001; 82043; 82306; 82570; 82610; 82728; 83540; 83550; 83970; 84156; 85027; 87077; 87086

== ENCOUNTER → 2025-03-25 11:15 | Outpatient (CLI) | payer MEDICARE, OTHER, SELFPAY ==
[2024-11-24 14:45] VITALS: BMI 23.3
[2025-03-25 12:26] LABS: Add Manual Diff / Slide Review NO; Hematocrit 30.1 % (36-46); Hemoglobin 9.9 g/dL (12.0-16.0); Lymphocytes Absolute Auto 1600 /uL (1100-4500); Mean Corpuscular HGB Conc 32.8 % (30-36); Mean Corpuscular Hemoglobin 28.4 PG (26-34); Mean Corpuscular Volume 86.4 fL (80-100); Platelet Count 331 X10^3/uL (150-400)
[2025-03-25 13:07] LABS: Ferritin 339 ng/mL (11-264)
[2025-03-25 13:09] LABS: HEMOLYSIS < 15 (0-50); Iron 46 ug/dL (37-170)
[2025-03-25 13:21] LABS: Percent Iron Saturation 21 % (15-50); Total Iron Binding Capacity 216 ug/dL (265-497); Transferrin 172 mg/dL (206-381)
== END ==
PROVIDERS: Family Provider Family Medicine; PCP Family Medicine; Referring Provider Family Medicine; Visit Provider Family Medicine
DX: D50.9 Iron deficiency anemia, unspecified (principal)
CPT/HCPCS: 36415; 82728; 83540; 83550; 85025